=== PATIENT | female | born 1990 | race Caucasian/White ===

== ENCOUNTER 2023-06-11 06:37 | Observation (INO) | payer MEDICAID, SELFPAY ==
[2023-06-11] VITALS (106 sets, daily range): BP systolic 88–117; BP diastolic 65–91; PULSE 73–135; RESP 12–29; TEMP 36.6–37.3; O2SAT 83–104; BMI 18.8; BMI 19.4
--- NOTE | 2023-06-11 06:40 | ECG_ITS ---
[facility] Test Date: 2023-06-11 Pat Name: FUNMI ESTES Department: Room: [facility] [place] Gender: Female Vegetable Scullion: : 1990 Requested By: [id number] Order Number: [id number] Reading MD: MELONY NAJERA Measurements Intervals [place] Rate: 123 P: 76 MI: 152 QRS: 79 QRSD: 76 T: 64 QT: 332 QTc: 405 Interpretive Statements 1120 Sinus tachycardia 4068 Nonspecific Twave abnormality 9140 abnormal rhythm ECG No previous ECG available for comparison Electronically Signed On 06-17-2023 6:56:07 EDT by MELONY NAJERA
--- NOTE | 2023-06-11 06:42 | ED.SEIZURE1 ---
HPI - Seizure General Stated Complaint: SEIZURE Time Seen by Provider: 06/11/23 06:40 History of Present Illness HPI Narrative: 33-year-old female to the emergency Department chief complaint of seizure. The seizure was witnessed by her daughter. Patient was lying in bed sleeping and was witnessed to have three seizures. Each one lasted less than five minutes. Patient had tonic positioning, eyes rolled back, unresponsive, sonorous respirations during the events. Confused immediately following with slow return to baseline. Daughter called EMS and the patient refused transport during the 1st visit. She had a 2nd seizure and EMS transported the patient to the hospital on 2nd call. Patient reports that she is an alcoholic. She typically drinks several Natty Daddy's a day. Yesterday she only drank 1 four ole. Last drink 3pm on 06/10. No reason given for the decreased intake. She does not wish to stop drinking. No falls or injuries. Otherwise at baseline health. Related Data Home Medications Medication Instructions Recorded Confirmed bupropion HCl 300 mg 24 hr tablet, 300 mg PO QDAY 06/11/23 06/11/23 extended release Allergies Allergy/AdvReac Type Severity Reaction Status Date / Time No Known Drug Allergies Allergy Verified 06/11/23 06:41 Review of Systems ROS Status of ROS 10 or more systems reviewed and unremarkable except as noted in history and below Exam Narrative Exam Narrative: VITALS: I have reviewed the triage vital signs. GENERAL: Well developed, well appearing adult in no acute distress. NEURO: Alert and oriented x4. Moves all extremities. Face is symmetric and expressive. Cranial nerves II through XII grossly intact as tested. Muscular strength and sensation grossly intact upper and lower extremities bilaterally. No dysarthria. No aphasia. No ataxia. Normal gait. NIHSS 0. EYES: PERRL. No scleral icterus or conjunctival injection. No discharge. HENT: Normocephalic, atraumatic. Hearing is grossly intact. Nares grossly patent and without discharge. Mucous membranes moist. NECK: No JVD. Patient moves neck without restriction. CARDIO: Rhythm regular. Normal rate. No murmur, rub, or gallop. Pulses equal bilaterally in the upper and lower extremity. No lower extremity edema. PULM: Lungs clear to auscultation in all jennings. No wheezes, rales, or rhonchi. No conversational dyspnea. No splinting, stridor, or accessory muscle use. GI/: Abdomen is soft and non-tender. Normoactive bowel sounds. EXTREMITIES: Symmetric muscle bulk. No joint swelling. No clubbing, cyanosis, or deformity. SKIN: Warm and dry. Normal turgor. No rash or lesions appreciated. PSYCH: Mood, affect, and interaction is appropriate to the setting. MDM - Seizure MDM Narrative Medical decision making narrative: MDM Data External documents reviewed: Not applicable My EKG interpretation: As below My CT interpretation: Not applicable My X-ray interpretation: Not applicable My Ultrasound interpretation: Not applicable Decision rules/scores evaluated: Not applicable Discussed with: Not applicable Treatment and Disposition ED Course: 33-year-old female with past medical history only significant for alcoholism. The emergency department with chief complaint of seizure. Vital stable, the patient is afebrile. She has no focal neurologic deficits on examination. No evidence of traumatic injury. She has had decreased alcohol intake over the last twenty-four hours which she believes precipitated the seizure. Has history of alcohol withdrawal seizure. Basic labs are ordered. Fluids ordered. Ativan ordered. She appears to be in mild to moderate withdrawal at this time. Care signed out to Dr. Naik with work-up and disposition pending. Shared decision making: As above Code status: Not addressed during this visit Discharge Plan Discharge Clinical Impression: Alcohol abuse with withdrawal, Seizure Referrals: Landon Carmen MD [Primary Care Provider] - 1 week
[2023-06-11] MEDS: 0.9 % SODIUM CHLORIDE 1,000 ML 999 ML IV (06:54)
[2023-06-11] MEDS: LORAZEPAM 2 MG/ML 1 ML VIAL IV (06:55)
[2023-06-11 07:25] LABS: Basophils Percent Auto 0.7 % (0.2-2.0); Eosinophils Percent Auto 0.3 % (0.9-7.0); Hematocrit 33.6 % (36.0-48.0); Hemoglobin 11.2 g/dL (12.0-16.0); Immature Granulocytes Abs Auto 0.02 10^3/uL (0.00-0.03); Immature Granulocytes Pct Auto 0.7 % (0.0-0.5); Lymphocytes Absolute Auto 0.6 10^3/uL (1.2-3.8); Lymphocytes Percent Auto 20.5 % (20.5-60.0); Mean Corpuscular HGB Conc 33.3 g/dL (29.9-35.2); Mean Platelet Volume 9.1 fL (9.5-13.5); Monocytes Absolute Auto 0.6 10^3/uL (0.3-0.8); Monocytes Percent Auto 19.9 % (1.7-12.0); Neutrophils Absolute Auto 1.7 10^3/uL (1.4-6.5); Neutrophils Percent Auto 57.9 % (43.0-75.0); Platelet Count 79 10^3/uL (150-450); Red Blood Count 3.11 10^6/uL (4.20-5.40); Red Cell Distribution Width 15.7 % (11.0-15.0)
[2023-06-11 07:30] LABS: Ethanol 25 mg/dL
[2023-06-11 07:34] LABS: HCG Qualitative NEGATIVE (NEGATIVE)
[2023-06-11 07:35] LABS: Alanine Aminotransferase 60 U/L (14-59); Albumin Level 3.6 g/dL (3.4-5.0); Alkaline Phosphatase 152 U/L (46-116); Anion Gap 22.2; Aspartate Amino Transferase 134 U/L (15-37); BUN Creatinine Ratio 4.9; Bilirubin Total 0.4 mg/dL (0.2-1.0); Calcium 8.1 mg/dL (8.5-10.1); Carbon Dioxide 17.7 mmol/L (21.0-32.0); Chloride 100 mmol/L (98-107); Estimated GFR (African America >60 (>=60); Estimated GFR (Non-African Ame >60 (>=60); Globulin 3.6 g/dL; Glucose 134 mg/dL (74-106); Magnesium 1.5 mg/dL (1.8-2.4); Sodium 137 mmol/L (136-145); Total Protein 7.2 g/dL (6.4-8.2)
[2023-06-11 07:39] LABS: Potassium 2.9 mmol/L (3.5-5.1)
[2023-06-11 08:05] LABS: Magnesium 1.6 mg/dL (1.8-2.4)
[2023-06-11] MEDS: POTASSIUM CHLORIDE 10 MEQ ER TABLET 40 MEQ PO (08:44)
[2023-06-11] MEDS: MAGNESIUM SULFATE IN WATER 50 ML IV (08:44)
[2023-06-11] MEDS: ACETAMINOPHEN 500 MG TABLET 1000 MG PO ×3 (10:16→23:47)
--- NOTE | 2023-06-11 10:25 | P.HP_ITS ---
H&P: HPI History of Present Illness Chief complaint: SEIZURE/ALCOHOL ABUSE W/ WITHDRAWAL Narrative: 33 y/o female with a history of daily alcohol use presents to ER after a seizure. Reports alcohol withdrawal seizures in past with last around 2019. History of opiate abuse in past but reports hasn't used in months and prior rehab. Typically drinks three 24 oz cans of beer daily. Yesterday wanted to try a different drink and only had 1 can. Daughter found patient having a seizure. Reports eyes rolling and not responding. Very confused after and called EMS. To ER and given ativan. Labs show low potassium and low magnesium. Still confused at time of exam. Review of Systems ROS Constitutional Denies: fever, chills or night sweats Cardiovascular Denies: chest pain, palpitations or edema Respiratory Denies: shortness of breath, cough or wheezing Gastrointestinal Denies: abdominal pain, nausea, vomiting or diarrhea Genitourinary Denies: painful urination [facility] Medical History (Updated 06/11/23 @ 10:33 by Abhinav Lama MD) Surgical History (Updated 06/11/23 @ 07:32 by Calvin Herzog) Social History Smoking status: Current every day smoker Meds Home Medications and Allergies Home Medications Medication Instructions Recorded Confirmed Type bupropion HCl 300 mg 24 hr tablet, 300 mg PO QDAY 06/11/23 06/11/23 History extended release Allergies Allergy/AdvReac Type Severity Reaction Status Date / Time No Known Drug Allergies Allergy Verified 06/11/23 06:41 Exam Constitutional Vital Signs, click to edit/add: Last Vital Signs Temp 99.1 F 06/11/23 06:41 Pulse 96 H 06/11/23 10:00 Resp 18 06/11/23 10:00 BP 109/86 06/11/23 10:00 Pulse Ox 100 06/11/23 10:00 O2 Del Method Room Air 06/11/23 10:00 Documenting provider has reviewed patient's vital signs: yes Common normals: no apparent distress, oriented x3 and alert HENMT Common normals: normocephalic Eye Common normals: PERRL and EOMs intact bilaterally Respiratory Common normals: normal respiratory effort and clear to auscultation bilaterally Cardio Common normals: regular rate, regular rhythm, no gallops, no murmurs and no rub GI Common normals: Normal to inspection, nondistended, normoactive bowel sounds present and non-tender Extremity Common normals: no pedal edema Results Labs Labs: Short CBC 06/11/23 Range/Units 06:45 WBC 3.0 L (4.0-11.0) 10^3/uL Hgb 11.2 L (12.0-16.0) g/dL Hct 33.6 L (36.0-48.0) % Plt Count 79 L (150-450) 10^3/uL BMP 06/11/23 06:45 Sodium 137 Potassium 2.9 L* Chloride 100 Carbon Dioxide 17.7 L BUN 4.0 L Creatinine 0.81 Glucose 134 H Calcium 8.1 L Liver Function 06/11/23 Range/Units 06:45 Total Bilirubin 0.4 (0.2-1.0) mg/dL AST 134 H (15-37) U/L ALT 60 H (14-59) U/L Alkaline Phosphatase 152 H (46-116) U/L Albumin 3.6 (3.4-5.0) g/dL Assessment and Plan Assessment and Plan (1) Seizure: (2) Bipolar 1 disorder: (3) Opioid abuse, in remission: (4) Alcohol withdrawal seizure: Plan Presented with alcohol withdrawal seizure and given Ativan. Start CIWA protocol with librium and use IV ativan PRN. Resume home medication. Replace electrolytes. Start vitamin supplements. Monitor for withdrawal symptoms.
[2023-06-11] MEDS: POTASSIUM CHLORIDE IN 0.9%NACL 1,000 ML 100 MEQ IV ×2 (11:49→20:54)
[2023-06-11] MEDS: BUPROPION HCL 150 MG XL TABLET 24H 300 MG PO (11:49)
[2023-06-11] MEDS: ARIPIPRAZOLE 2 MG TABLET PO (11:49)
[2023-06-11] MEDS: THIAMINE MONONITRATE (VIT B1) 100 MG TABLET PO (12:14)
[2023-06-11] MEDS: MULTIVITAMIN TABLET 1 TAB PO (12:14)
[2023-06-11] MEDS: FOLIC ACID 1 MG TABLET PO (12:15)
[2023-06-11 14:08] LABS: Anion Gap 9.5; Calcium 7.5 mg/dL (8.5-10.1); Carbon Dioxide 29.1 mmol/L (21.0-32.0); Chloride 101 mmol/L (98-107); Estimated GFR (African America >60 (>=60); Estimated GFR (Non-African Ame >60 (>=60); Glucose 133 mg/dL (74-106); Magnesium 2.1 mg/dL (1.8-2.4); Potassium 3.6 mmol/L (3.5-5.1); Sodium 136 mmol/L (136-145)
[2023-06-11] MEDS: CLORDIAZEPOXIDE HCl 25 MG CAPSULE 50 MG PO ×2 (14:09→20:09)
--- NOTE | 2023-06-11 14:19 | PC.NURSE ---
1300 06/11/[address] weems and pharmacist librium orders per facility policy confirmed and entered as vo per dr weems. Andrew Deshpande RN
--- NOTE | 2023-06-11 14:22 | PC.NURSE ---
06/11/23 1420 community engagement specialist calling and leaving message for certified first assistant consultation for pt as pt assessments trigger consultation. Andrew Deshpande RN
[2023-06-12] VITALS (28 sets, daily range): BP systolic 95–108; BP diastolic 69–83; PULSE 65–135; RESP 4–28; O2SAT 68–100
[2023-06-12] MEDS: CLORDIAZEPOXIDE HCl 25 MG CAPSULE 50 MG PO ×2 (02:04→08:10)
[2023-06-12 04:35] LABS: Hematocrit 32.5 % (36.0-48.0); Hemoglobin 10.9 g/dL (12.0-16.0); Mean Corpuscular HGB Conc 33.5 g/dL (29.9-35.2); Mean Corpuscular Hemoglobin 36.1 pg (26.7-34.0); Mean Corpuscular Volume 107.6 fL (81.0-99.0); Mean Platelet Volume 10.1 fL (9.5-13.5); Platelet Count 68 10^3/uL (150-450); Red Blood Count 3.02 10^6/uL (4.20-5.40); Red Cell Distribution Width 15.2 % (11.0-15.0); White Blood Count 4.3 10^3/uL (4.0-11.0)
[2023-06-12 04:58] LABS: Anion Gap 10.9; BUN Creatinine Ratio 5.2; Calcium 7.2 mg/dL (8.5-10.1); Carbon Dioxide 24.7 mmol/L (21.0-32.0); Chloride 106 mmol/L (98-107); Estimated GFR (African America >60 (>=60); Estimated GFR (Non-African Ame >60 (>=60); Glucose 66 mg/dL (74-106); Magnesium 2.2 mg/dL (1.8-2.4); Potassium 3.6 mmol/L (3.5-5.1); Sodium 138 mmol/L (136-145)
[2023-06-12] MEDS: POTASSIUM CHLORIDE IN 0.9%NACL 1,000 ML 100 MEQ IV (07:09)
[2023-06-12] MEDS: THIAMINE MONONITRATE (VIT B1) 100 MG TABLET PO (08:09)
[2023-06-12] MEDS: BUPROPION HCL 150 MG XL TABLET 24H 300 MG PO (08:09)
[2023-06-12] MEDS: ARIPIPRAZOLE 2 MG TABLET PO (08:09)
[2023-06-12] MEDS: FOLIC ACID 1 MG TABLET PO (08:09)
[2023-06-12] MEDS: MULTIVITAMIN TABLET 1 TAB PO (08:10)
--- NOTE | 2023-06-12 11:28 | PM.DS1 ---
DS: Providers Provider Date of admission: 06/11/23 10:00 Primary care physician: Landon Carmen MD DS: Diagnosis Discharge Diagnosis (1) Alcohol withdrawal seizure: (2) Seizure: (3) Bipolar 1 disorder: (4) Opioid abuse, in remission: DS: Summary Hospital Course Hospital Course: Reason for admission: See H&P for details. 33 y/o female with a history of daily alcohol use presents to ER after a seizure. Reports alcohol withdrawal seizures in past with last around 2019. History of opiate abuse in past but reports hasn't used in months and prior rehab. Typically drinks three 24 oz cans of beer daily. Yesterday wanted to try a different drink and only had 1 can. Daughter found patient having a seizure. Reports eyes rolling and not responding. Very confused after and called EMS. To ER and given ativan. Labs show low potassium and low magnesium and replaced. Admitted for treatment. Hospital course: Started CIWA protocol using librium and ativan. Started IV fluids and oral vitamin supplements. Resumed home medication. Improved in hospital. Labs normal. Not as shaky and withdrawal symptoms controlled with librium. Discharged home in stable condition. Use librium PRN. Resume home medication as directed. F/u with PCP in 1 week. Time Spent with Patient Time attestation: Total time spent providing and/or coordinating discharge services: Exam Constitutional Vital Signs, click to edit/add: Last Vital Signs Temp 97.8 F 06/11/23 23:50 Pulse 107 H 06/12/23 10:00 Resp 28 H 06/12/23 07:30 BP 108/83 06/12/23 07:23 Pulse Ox 100 06/12/23 03:44 O2 Del Method Room Air 06/11/23 11:27 Documenting provider has reviewed patient's vital signs: yes Common normals: no apparent distress, oriented x3 and alert HENMT Common normals: normocephalic Eye Common normals: PERRL and EOMs intact bilaterally Respiratory Common normals: normal respiratory effort and clear to auscultation bilaterally Cardio Common normals: regular rate, regular rhythm, no gallops, no murmurs and no rub GI Common normals: Normal to inspection, nondistended, normoactive bowel sounds present and non-tender Extremity Common normals: no pedal edema DS: Data Data Completed and Pending Labs on day of discharge: Labs from last 24 hours 06/12/23 06/11/23 03:41 13:46 WBC 4.3 RBC 3.02 L Hgb 10.9 L Hct 32.5 L MCV 107.6 H MCH 36.1 H MCHC 33.5 RDW 15.2 H Plt Count 68 L MPV 10.1 Sodium 138 136 Potassium 3.6 3.6 Chloride 106 101 Carbon Dioxide 24.7 29.1 Anion Gap 10.9 9.5 BUN 3.0 L 3.0 L Creatinine 0.58 0.60 Est GFR ( Amer) >60 >60 Est GFR (Non-Af Amer) >60 >60 BUN/Creatinine Ratio 5.2 5.0 Glucose 66 L 133 H Calcium 7.2 L 7.5 L Magnesium 2.2 2.1 Discharge Plan Discharge Discharge Medications: New chlordiazepoxide HCl 25 mg capsule 25 mg PO Q6H PRN (Reason: alcohol withdrawal) 7 Days Qty: 28 0RF Continued bupropion HCl 300 mg tablet extended release 24 hr 300 mg PO QDAY aripiprazole 2 mg tablet 2 mg PO DAILY Discontinued quetiapine [Seroquel] 25 mg tablet 25 mg PO BEDTIME PRN (Reason: bedtime) Activity: resume usual activities as tolerated Diet: advance to your usual diet Forms: Portal Instructions Referrals: Landon Carmen MD [Primary Care Provider] - 1 week
--- NOTE | 2023-06-13 14:25 | CM.DCFOLLOWU ---
Not a working number
== END 2023-06-12 11:49 | disposition home or self-care (01) ==
LOC: ER 10:25 → ICU 10:53
PROVIDERS: Student in an Organized Health Care Education/Training Program; Admitting Provider Family Medicine; Emergency Provider Emergency Medicine; PCP Family Medicine; Visit Provider Family Medicine
DX: F10.239 Alcohol dependence with withdrawal, unspecified (principal); R56.9 Unspecified convulsions; F31.9 Bipolar disorder, unspecified; F11.11 Opioid abuse, in remission; E87.6 Hypokalemia; E83.42 Hypomagnesemia; Z79.899 Other long term (current) drug therapy
CPT/HCPCS: 36415; 80048; 80053; 80320; 83735; 84703; 85025; 85027; 93005; 96365; 96366; 96367; 96375; 96376; 99285; G0378

== ENCOUNTER 2023-08-15 11:28 | Emergency (ER) | payer MEDICAID, SELFPAY ==
[2023-08-15 11:31] VITALS: BP 120/92; PULSE 112; RESP 16; TEMP 36.6; O2SAT 98; BMI 17.2
--- NOTE | 2023-08-15 11:42 | ED.FEMALEGU1 ---
HPI - Female Genitourinary General Chief complaint: Urogenital-Female Stated complaint: LUMPS, BUMPS, CALLOUSES Time Seen by Provider: 08/15/23 11:40 Source: patient Mode of arrival: walk-in Limitations: no limitations History of Present Illness HPI Narrative: patient's here for complaining of infection in the labia area. She says that approximately six months ago she had one on her right side. Now the symptoms are on the left side. She denies any previous history of STDs. She has not seen an DEVELOPMENTAL MATHEMATICS INSTRUCTOR for approximately two years. Related Data Home Medications Medication Instructions Recorded Confirmed aripiprazole 2 mg tablet 2 mg PO DAILY 06/11/23 06/11/23 bupropion HCl 300 mg 24 hr tablet, 300 mg PO QDAY 06/11/23 06/11/23 extended release Previous Rx's Medication Instructions Recorded chlordiazepoxide HCl 25 mg capsule 25 mg PO Q6H PRN alcohol 06/12/23 withdrawal 7 days #28 caps Allergies Allergy/AdvReac Type Severity Reaction Status Date / Time No Known Drug Allergies Allergy Verified 08/15/23 11:31 [facility] Medical History (Updated 08/15/23 @ 13:03 by Piter Baez MD) Alcohol abuse with withdrawal ?F10.139 - Alcohol abuse with withdrawal, unspecified (ICD-10) Alcohol withdrawal seizure ?F10.939 - Alcohol use, unspecified with withdrawal, unspecified (ICD-10) ?R56.9 - Unspecified convulsions (ICD-10) Bipolar 1 disorder ?F31.9 - Bipolar disorder, unspecified (ICD-10) History of alcohol abuse ?F10.11 - Alcohol abuse, in remission (ICD-10) History of anxiety ?Z86.59 - Personal history of other mental and behavioral disorders (ICD-10) History of depression ?Z86.59 - Personal history of other mental and behavioral disorders (ICD-10) Opioid abuse, in remission ?F11.11 - Opioid abuse, in remission (ICD-10) Surgical History (Updated 06/11/23 @ 07:32 by Calvin Herzog) History of tonsillectomy ?Z90.89 - Acquired absence of other organs (ICD-10) Social History Smoking status: Current every day smoker Gender Identity: female Exam Narrative Exam Narrative: patient awake alert pleasant. I do smell alcohol on her breath and she confirms that. Examination was conducted with a RN. Problem focused examination shows the perineum and pelvic area to be normal. However on the proximal left thigh/buttock area there is a small abscess measuring approximately one and half centimeters. There is no drainage at this time. The perirectal area is uninvolved. Constitutional Vital Signs, click to edit/add: Last Vital Signs Temp 97.8 F 08/15/23 11:31 Pulse 112 H 08/15/23 11:31 Resp 16 08/15/23 11:31 BP 120/92 H 08/15/23 11:31 Pulse Ox 98 08/15/23 11:31 O2 Del Method Room Air 08/15/23 11:31 Course Vital Signs Vital signs: Vital Signs Temperature 97.8 F 08/15/23 11:31 Pulse Rate 112 H 08/15/23 11:31 Respiratory Rate 16 08/15/23 11:31 Blood Pressure 120/92 H 08/15/23 11:31 Pulse Oximetry 98 08/15/23 11:31 Oxygen Delivery Method Room Air 08/15/23 11:31 Temperature 97.8 F 08/15/23 11:31 Pulse Rate 112 H 08/15/23 11:31 Respiratory Rate 16 08/15/23 11:31 Blood Pressure 120/92 H 08/15/23 11:31 Pulse Oximetry 98 08/15/23 11:31 Oxygen Delivery Method Room Air 08/15/23 11:31 MDM - Female Genitourinary MDM Narrative Medical decision making narrative: after lidocaine one percent anesthesia with epinephrine area was prepped with Betadine and a #11 blade was used to make a small opening in the area of maximum fluctuance. Purulent material was reccovered. She tolerated procedure well.. We will start her on antibiotic therapy. This was not a deep abscess. Discharge Plan Discharge Chief Complaint: Urogenital-Female Clinical Impression: Abscess of left leg Patient Disposition: Home, Self-Care Time of Disposition Decision: 13:03 Prescriptions / Home Meds: No Action bupropion HCl 300 mg tablet extended release 24 hr 300 mg PO QDAY aripiprazole 2 mg tablet 2 mg PO DAILY chlordiazepoxide HCl 25 mg capsule 25 mg PO Q6H PRN (Reason: alcohol withdrawal) 7 Days Qty: 28 0RF Additional Instructions: warm compresses/start Keflex and doxycycline Stand Alone Forms: Portal Instructions Referrals: Landon Carmen MD [Primary Care Provider] - 1 week
== END 2023-08-15 13:21 | disposition home or self-care (01) ==
PROVIDERS: Emergency Provider Emergency Medicine Emergency Medical Services; PCP Family Medicine
DX: L02.416 Cutaneous abscess of left lower limb (principal); F31.9 Bipolar disorder, unspecified; F10.11 Alcohol abuse, in remission; F11.11 Opioid abuse, in remission; Z90.89 Acquired absence of other organs; F17.210 Nicotine dependence, cigarettes, uncomplicated; Z79.899 Other long term (current) drug therapy; Z86.59 Personal history of other mental and behavioral disorders
CPT/HCPCS: 10060; 99284

== ENCOUNTER 2024-03-07 09:32 | Outpatient (OUT) | payer MEDICAID, SELFPAY ==
--- NOTE | 2024-03-07 09:39 | XR_ITS ---
The [address] [address] Patient Name: FUNMI ESTES MRN: [id number] date: 1990 Sex: F Assigned Patient Location: [facility] Current Patient Location: RAD Accession/Order Number: [id number] Exam Date: 03/07/2024 09:50 Report Date: 03/07/2024 14:27 At the request of: CARL CHILD Procedure: XR wrist RT min 3V PROCEDURE: XR wrist RT min 3V COMPARISON: None. HISTORY: Acute Wrist Pain Right M25.531 FINDINGS: BONES:Focal sclerosis and slight contour deformity proximal scaphoid. Elongated appearance of the ulna styloid possibly developmental. SOFT TISSUES:Negative. No visible soft tissue swelling. EFFUSION:None visible. OTHER: Negative. XR/XR wrist RT min 3V IMPRESSION: Sclerosis and contour deformity of the proximal scaphoid, consider subacute or chronic injury Electronically authenticated by: NIESHA MORRIS Date: 03/07/2024 14:27
== END 2024-03-07 09:33 | disposition home or self-care (01) ==
LOC: RAD 09:33
PROVIDERS: PCP Family Medicine; Visit Provider Family Medicine
DX: M25.531 Pain in right wrist (principal)
CPT/HCPCS: 73110

== ENCOUNTER 2024-08-21 06:51 | Outpatient (OUT) | payer MEDICAID, SELFPAY ==
--- NOTE | 2024-08-21 | ECG_ITS ---
The [facility] Test Date: 2024-08-21 Pat Name: FUNMI ESTES Department: Room: - Gender: Female Ct Scan Tech: : 1990 Requested By: Order Number: [id number] Reading MD: MELONY NAJERA Measurements Intervals [place] Rate: 61 P: 48 UT: 142 QRS: 68 QRSD: 82 T: 59 QT: 383 QTc: 388 Interpretive Statements SINUS RHYTHM Compared to ECG 06/11/2023 06:42:04 Sinus tachycardia no longer present Electronically Signed On 08-21-2024 22:21:22 EDT by MELONY NAJERA
--- OUTSIDE RECORDS SUMMARY | 2024-08-21 06:56 | XMS_ITS | CCD ---
Author Organization [facility] Care Team Providers Care Ball Worker Name Role Phone ONI CARMICHAEL Admitting Unavailable ONI CARMICHAEL Consulting Unavailable ONI CARMICHAEL Attending Unavailable DR CARL CHILD Primary Care Unavailable CORNELIA SMILEY Admitting Unavailable CORNELIA SMILEY Attending Unavailable ARTURO, DR NIESHA Magaña Consulting Unavailable CORNELIA SMILEY Consulting Unavailable DR CARL CHILD Consulting Unavailable DR CARL CHILD Attending Unavailable MATEUSZ, DR HENRY Admitting Unavailable DR CARL CHILD Primary Care Unavailable MD Carl Child Primary Care Provider [phone] Xochilt Awan Emergency Provider [phone] PROVIDER, UNKNOWN Attending Unavailable PROVIDER, UNKNOWN Admitting Unavailable MD Carl Child Primary Care Provider [phone] DO Roby Thakkar Emergency Provider [phone] MD Gem Velasco Admit Provider MD Gem Velasco Attending Provider MD Tyrone Barron Attending Provider MD Gregory Raya Other Provider Gem Velasco Admitting Unavailable Tyrone Barron Attending Unavailable Carl Child Primary Care Unavailable Gregory Raya Consulting Unavailable Allergies Allergy Classification Reported Allergen(s) Allergy Type Date of Onset Reaction(s) Facility (1 source) Penicillin Drug Allergy [facility] Repository Medications Current Medications Medication Drug Class(es) Dates Sig (Normalized) Sig (Original) acamprosate calcium 333 mg delayed release oral tablet (3 sources) Start: 12-16-2021 take 333 mg by mouth twice daily Acamprosate Active 333 MG PO Twice daily December 16, 2021 12:00am 24 hr buPROPion hydrochloride 300 mg extended release oral tablet (3 sources) Aminoketone Start: 12-16-2021 take 300 mg by mouth once daily Bupropion Hcl Active 300 MG PO Daily December 16, 2021 12:00am cephalexin 500 mg oral capsule (3 sources) Cephalosporin Antibacterial Start: 12-16-2021 take 1000 mg by mouth twice daily Cephalexin Active 1000 MG PO Twice daily 40 December 16, 2021 12:00am escitalopram 5 mg oral tablet (3 sources) Serotonin Reuptake Inhibitor Start: 12-16-2021 take 5 mg by mouth once daily Escitalopram Oxalate Active 5 MG PO Daily December 16, 2021 12:00am ibuprofen 800 mg oral tablet (12 sources) Nonsteroidal Anti-inflammatory Drug Start: 12-16-2021 take 800 mg by mouth every six hours Ibuprofen Active 800 MG PO Q6H December 16, 2021 12:00am Start: 12-08-2019 End: 12-16-2021 take 800 mg by mouth three times daily Ibuprofen Discontinued 800 MG PO Three times daily December 08, 2019 12:00am December 16, 2021 10:44am Start: 04-21-2019 End: 12-19-2019 Ibuprofen (Motrin Ib) 200 mg Capsule Discontinued 600 MG PO Q6H April 20, 2019 11:00pm December 19, 2019 10:46pm Start: 09-12-2018 End: 04-21-2019 take 600 mg by mouth every six hours Ibuprofen Discontinued 600 MG PO Q6H 0 September 12, 2018 12:00am April 21, 2019 5:25pm 24 hr propranolol hydrochloride 120 mg extended release oral capsule (1 source) beta-Adrenergic Tommy Start: 09-16-2023 take 120 mg by mouth once daily Propranolol Active 120 MG PO Daily September 16, 2023 12:00am QUEtiapine 100 mg oral tablet (3 sources) Atypical Antipsychotic Start: 12-16-2021 take 100 mg by mouth at bedtime Quetiapine Active 100 MG PO Bedtime December 16, 2021 12:00am sulfamethoxazole 800 mg / trimethoprim 160 mg oral tablet (3 sources) Dihydrofolate Reductase Inhibitor Antibacterial, Sulfonamide Antimicrobial Start: 12-16-2021 take 1 tablet by mouth twice daily Sulfamethoxazole -Trimethoprim (Bactrim Ds) 800-160 mg tablet Active 1 TAB PO Twice daily 20 December 16, 2021 12:00am Completed/Discontinued Medications Medication Drug Class(es) Dates Sig (Normalized) Sig (Original) acetaminophen 325 mg oral tablet (6 sources) Start: 04-21-2019 End: 12-19-2019 take 2 tablets by mouth every four hours Acetaminophen (Tylenol) 325 mg Tablet Discontinued 650 MG PO Q4H April 20, 2019 11:00pm December 19, 2019 10:46pm Start: 09-12-2018 End: 04-21-2019 take 650 mg by mouth every four hours Acetaminophen Discontinued 650 MG PO Q4H September 12, 2018 12:00am April 21, 2019 5:25pm buprenorphine 2 mg sublingual tablet (3 sources) Partial Opioid Agonist Start: 09-12-2018 End: 04-21-2019 take 4 mg under the tongue once daily Buprenorphine Hcl Discontinued 4 MG SUBLINGUAL Daily 60 September 12, 2018 12:00am April 21, 2019 5:25pm buprenorphine 8 mg / naloxone 2 mg sublingual film (3 sources) Partial Opioid Agonist, Opioid Antagonist Start: 04-21-2019 End: 12-19-2019 Buprenorphine-Nalox one Discontinued FILM April 20, 2019 11:00pm December 19, 2019 10:46pm nitrofurantoin, macrocrystals 25 mg / nitrofurantoin, monohydrate 75 mg oral capsule (3 sources) Nitrofuran Antibacterial Start: 04-21-2019 End: 12-19-2019 take 1 capsule by mouth every twelve hours at mealtime Nitrofurantoin Monohyd/M-Cryst (Macrobid) 100 mg capsule Discontinued 100 MG PO Q12H 10 April 20, 2019 11:00pm December 19, 2019 10:46pm administer with a meal/food; swallow whole; do not open, crush, dissolve , or chew OLANZapine 5 mg oral tablet (6 sources) Atypical Antipsychotic Start: 09-12-2018 End: 12-19-2019 Olanzapine Discontinued TABLET April 20, 2019 11:00pm December 19, 2019 10:45pm omeprazole 20 mg delayed release oral capsule (3 sources) Proton Pump Inhibitor Start: 09-12-2018 End: 04-21-2019 take 20 mg by mouth once daily Omeprazole Discontinued 20 MG PO Daily 30 September 12, 2018 12:00am April 21, 2019 5:26pm ondansetron 4 mg oral tablet (3 sources) Serotonin-3 Receptor Antagonist Start: 04-21-2019 End: 04-21-2019 Ondansetron Hcl Discontinued TABLET April 20, 2019 11:00pm April 21, 2019 5:27pm potassium chloride 20 meq extended release oral tablet (6 sources) Start: 12-20-2019 End: 12-16-2021 take 40 mEq by mouth once daily Potassium Chloride Discontinued 40 MEQ PO Daily December 20, 2019 12:00am December 16, 2021 10:44am Start: 04-21-2019 End: 12-19-2019 take 20 mEq by mouth once daily at mealtime Potassium Chloride Discontinued 20 MEQ PO daily 7 7 April 20, 2019 11:00pm December 19, 2019 10:45pm administer with food (meal or snack) promethazine hydrochloride 25 mg oral tablet (3 sources) Phenothiazine Start: 04-21-2019 End: 12-19-2019 take 25 mg by mouth every six hours Promethazine Discontinued 25 MG PO Q6H 15 April 20, 2019 11:00pm December 19, 2019 10:45pm Problems Active Problems Problem Classification Problem Date Documented Da te Episodic/Chronic Administrative/social admission (3 sources) Other reduced mobility; Translations: [Impaired mobility and activities of daily living] 09-06-2018 Episodic Alcohol-related disorders (4 sources) Alcohol withdrawal syndrome; Translations: [Alcohol withdrawal syndrome] 09-11-2023 Chronic Allergic reactions (3 sources) Inflammatory dermatosis; Translations: [Dermatitis, unspecified] 12-08-2019 Episodic Anxiety disorders (3 sources) Anxiety; Translations: [Anxiety disorder, unspecified] Onset: 09-11-2023 09-13-2023 Chronic Epilepsy; convulsions (4 sources) Seizure; Translations: [Unspecified convulsions] 09-11-2023 Episodic Fluid and electrolyte disorders (6 sources) Dehydration; Translations: [Dehydration] 04-21-2019 Episodic Inflammatory diseases of female pelvic organs (3 sources) Abscess of Bartholin's gland; Translations: [Abscess of Bartholin's gland] 12-16-2021 Episodic Mood disorders (3 sources) Depressive disorder; Translations: [Depression] Onset: 09-11-2023 09-13-2023 Chronic Nausea and vomiting (3 sources) Vomiting; Translations: [Vomiting, unspecified] 04-21-2019 Episodic Other aftercare (3 sources) Drug therapy finding; Translations: [Encounter for therapeutic drug level monitoring] 09-06-2018 Episodic Other diseases of veins and lymphatics (3 sources) Lymphedema; Translations: [Lymphedema, not elsewhere classified] 12-20-2019 Chronic Other nervous system disorders (3 sources) Guillain-Ulysses syndrome; 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 Other non-traumatic joint disorders (3 sources) Joint pain; Translations: [Pain in unspecified joint] 12-08-2019 Episodic Residual codes; unclassified (3 sources) Patient encounter status; Translations: [Encounter for prophylactic measures, unspecified] 09-06-2018 Episodic Residual codes; unclassified (3 sources) Tobacco use and exposure - finding; Translations: [Tobacco use] 09-06-2018 Episodic Substance-related disorders (3 sources) History of drug abuse; 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, in remission] 09-06-2018 Chronic Substance-related disorders (4 sources) Poisoning by heroin, accidental (unintentional), initial encounter; Translations: [POISON HEROIN ACCIDENTAL INIT ENC] Onset: 06-16-2021 Episodic Superficial injury; contusion (3 sources) Contusion of face; Translations: [Contusion of other part of head, initial encounter] Onset: 09-11-2023 09-13-2023 Episodic Unclassified (1 source) POISON OTH SYNT NARC ACC INITIAL; Translations: [POISON OTH SYNT NARC ACC INITIAL] Onset: 06-18-2021 Unclassified (1 source) Alcohol use, unspecified with withdrawal, unspecified; Translations: [Alcohol use, unspecified with withdrawal, unspecified] Onset: 09-11-2023 Urinary tract infections (3 sources) Urinary tract infectious disease; Translations: [Urinary tract infection, site not specified] 04-21-2019 Episodic Past or Other Problems Problem Classification Problem Date Documented Da te Episodic/Chronic Other connective tissue disease (4 sources) Pain in right foot; Translations: [PAIN IN RIGHT FOOT] Onset: 07-02-2020 Episodic Other connective tissue disease (1 source) Pain in left foot; Translations: [PAIN IN LEFT FOOT] Onset: 07-10-2020 Episodic Results Test Name Value Interpretation Reference Range Facility Basic Metabolic Panelon 08-31 Anion gap [Moles/Vol] 8.1 mmol/L Normal 6.0-15.0 [facility] Comment on above: Order Comment: pleas e change to 0900 per RN Kimberly Looney Performed By: #### M G, CMP, CBC, PT #### [facility] [address] Calcium [Mass/Vol] 8.3 mg/dL Low 8.6-10.3 [facility] Comment on above: Order Comment: pleas e change to 0900 per RN Kimberly Looney Performed By: #### M G, CMP, CBC, PT #### [facility] [address] Chloride [Moles/Vol] 107 mmol/L Normal 98-107 [facility] Comment on above: Order Comment: pleas e change to 0900 per RN Kimberly Looney Performed By: #### M G, CMP, CBC, PT #### [facility] [address] CO2 [Moles/Vol] 26.7 mmol/L Normal 21.0-31.0 [facility] Comment on above: Order Comment: pleas e change to 0900 per RN Kimberly Looney Performed By: #### M G, CMP, CBC, PT #### [facility] [address] [place] [id number] [facility] Creatinine [Mass/Vol] 0.57 mg/dL Low 0.60-1.20 [facility] Comment on above: Order Comment: pleas e change to 0900 per RN Kimberly Looney Performed By: #### M G, CMP, CBC, PT #### [facility] [address] [place] [id number] [place] Creatinine Clr Calc Pharmacy 122.00 [facility] Comment on above: Order Comment: pleas e change to 0900 per RN Kimberly Looney Performed By: #### M G, CMP, CBC, PT #### [facility] [address] [place] [address] [place] GFR/1.73 sq M.predicted MDRD (S/P/Bld) [Vol rate/Area] mL/min/{1.73_m2} Normal [facility] Comment on above: Order Comment: pleas e change to 0900 per RN Kimberly Looney Performed By: #### M Zheng, CMP, CBC, PT #### [facility] [address] Glucose [Mass/Vol] 125 mg/dL High 70-100 [facility] Comment on above: Order Comment: pleas e change to 0900 per RN Kimberly Looney Result Comment: [facility] Glucose Reference Range is dependent on time and content of last meal. Glucose of more than 200 mg/dL in a nonstressed, ambulatory subject supports the diagnosis of Diabetes Mellitus. ADA recommended reference range Performed By: #### M Zheng, CMP, CBC, PT #### [facility] [address] Potassium [Moles/Vol] 3.8 mmol/L Normal 3.5-5.1 [facility] Comment on above: Order Comment: pleas e change to 0900 per RN Kimberly Looney Performed By: #### Mary Calzada, CMP, CBC, PT #### [facility] [address] [place] [address] [place] Sodium [Moles/Vol] 138 mmol/L Normal 136-145 [facility] Comment on above: Order Comment: pleas e change to 0900 per RN Kimberly Looney Performed By: #### Mary Calzada, CMP, CBC, PT #### [facility] [address] [place] [id number] [place] Urea nitrogen [Mass/Vol] 2 mg/dL Low 7-25 [facility] Comment on above: Order Comment: pleas e change to 0900 per RN Kimberly Looney Performed By: #### Mary Calzada, CMP, CBC, PT #### [facility] [address] [place] [id number] [place] Calcium [Mass/volume] in Ser um or PlasmaOrdered By: Tyrone Barron on 09-14-2023 Calcium [Mass/Vol] 8.3 mg/dL 8.6-10.3 [facility] Carbon dioxide, total [Moles /volume] in Serum or PlasmaOrdered By: Tyrone Barron on 09-14-2023 CO2 [Moles/Vol] 26.7 mmol/L 21.0-31.0 [facility] Chloride [Moles/volume] in S tessie or PlasmaOrdered By: Tyrone Barron on 09-14-2023 Chloride [Moles/Vol] 107 mmol/L 98-107 [facility] Creatinine [Mass/volume] in Serum or PlasmaOrdered By: Tyrone Barron on 09-14-2023 Creatinine [Mass/Vol] 0.57 mg/dL 0.60-1.20 [facility] Erythrocyte distribution wid th Auto (RBC) [Ratio]Ordered By: Tyrone Barron on 09-14-2023 Erythrocyte distribution width (RBC) [Ratio] 12.4 % 11.9-15.3 [facility] Ferritinon 09-14-2023 Ferritin [Mass/Vol] 204.3 ng/mL Normal 11.0-306.8 [facility] Comment on above: Order Comment: pleas e change to 0900 per RN Kimberly Looney Performed By: #### M G, CMP, CBC, PT #### [address] Ferritin [Mass/volume] in Se rum or PlasmaOrdered By: Tyrone Barron on 09-14-2023 Ferritin [Mass/Vol] 204.3 ng/mL 11.0-306.8 [facility] Folate [Mass/volume] in Seru m or PlasmaOrdered By: Tyrone Barron on 09-14-2023 Folate [Mass/Vol] 18.4 ng/mL >5.9 [facility] Comment on above: Folate reference ran ge: >5.9 ng/mlThe WHO technical consultation on folate and vitamin [id number] has determined that folate concentrations lessthan 4 ng/ml are considered deficient. Glucose [Mass/volume] in Ser um or PlasmaOrdered By: Tyrone Barron on 09-14-2023 Glucose [Mass/Vol] 125 mg/dL 70-100 [facility] Comment on above: ADA recommended refe rence rangeRandom Glucose Reference Range is dependent on time and content of last meal. Glucose of more than 200 mg/dL in a nonstressed, ambulatory subject supports the diagnosis of Diabetes Mellitus. Hematocrit Auto (Bld) [Volum e fraction]Ordered By: Tyrone Barron on 09-14-2023 Hematocrit (Bld) [Volume fraction] 36.4 % 34.0-46.4 [facility] Hemoglobin [Mass/volume] in BloodOrdered By: Tyrone Barron on 09-14-2023 Hemoglobin (Bld) [Mass/Vol] 12.4 g/dL 11.8-15.4 [facility] Hemogram CBC Without Diffon 09-14-2023 Erythrocyte distribution width (RBC) [Ratio] 12.4 % Normal 11.9-15.3 [facility] Comment on above: Order Comment: pleas e change to 0900 per RN Kimberly Looney Performed By: #### M G, CMP, CBC, PT #### [facility] [address] [place] [address] Hematocrit (Bld) [Volume fraction] 36.4 % Normal 34.0-46.4 [facility] Comment on above: Order Comment: pleas e change to 0900 per RN Kimberly Looney Performed By: #### M G, CMP, CBC, PT #### [facility] [address] Hemoglobin (Bld) [Mass/Vol] 12.4 g/dL Normal 11.8-15.4 [facility] Comment on above: Order Comment: pleas e change to 0900 per RN Kimberly Looney Performed By: #### M G, CMP, CBC, PT #### [facility] [address] [place] [address] [place] MCH (RBC) [Entitic mass] 33.9 pg Normal 24.7-34.3 [facility] Comment on above: Order Comment: pleas e change to 0900 per RN Kimberly Looney Performed By: #### M G, CMP, CBC, PT #### [facility] [address] [place] [id number] [place] MCV (RBC) [Entitic vol] 99.9 fL Normal 80-100 [facility] Comment on above: Order Comment: pleas e change to 0900 per RN Kimberly Looney Performed By: #### M G, CMP, CBC, PT #### [facility] [address] Mean Corpuscular HGB Conc 33.9 g/dL Normal 32.0-35.0 [facility] Comment on above: Order Comment: pleas e change to 0900 per RN Kimberly Looney Performed By: #### M G, CMP, CBC, PT #### [address] Platelet mean volume (Bld) [Entitic vol] 7.4 fL Normal 6.3-10.7 [facility] Comment on above: Order Comment: pleas e change to 0900 per RN Kimberly Looney Result Comment: PERF ORMED BY: [place] [address] PATHOLOGIST [employer] ZURDO DOMINGO M.D. Performed By: #### M G, CMP, CBC, PT #### [address] Platelets (Bld) [#/Vol] 141 10*3/uL Low 150-450 [facility] Comment on above: Order Comment: pleas e change to 0900 per RN Kimberly Looney Performed By: #### M G, CMP, CBC, PT #### [address] RBC (Bld) [#/Vol] 3.65 10*6/uL Normal 3.60-5.00 [facility] Comment on above: Order Comment: pleas e change to 0900 per RN Kimberly Looney Performed By: #### M G, CMP, CBC, PT #### [address] WBC (Bld) [#/Vol] 4.1 10*3/uL Normal 3.8-11.6 [facility] Comment on above: Order Comment: pleas e change to 0900 per RN Kimberly Looney Performed By: #### M G, CMP, CBC, PT #### [facility] [address] [place] [id number] [place] Iron [Mass/volume] in Serum or PlasmaOrdered By: Tyrone Barron on 09-14-2023 Iron [Mass/Vol] 75 ug/dL 50-212 [facility] Iron and TIBC Profileon 08-31 % Iron Saturation 27.5 % Normal 20-50 [facility] Comment on above: Order Comment: pleas e change to 0900 per RN Kimberly Looney Performed By: #### M G, CMP, CBC, PT #### [facility] [address] [place] [address] [facility] Iron [Mass/Vol] 75 ug/dL Normal 50-212 [facility] Comment on above: Order Comment: pleas e change to 0900 per RN Kimberly Looney Performed By: #### M G, CMP, CBC, PT #### [facility] [address] [place] [address] [facility] Total Iron Binding Capacity 273 ug/dL Normal 255-450 [facility] Comment on above: Order Comment: pleas e change to 0900 per RN Kimberly Looney Performed By: #### M G, CMP, CBC, PT #### [facility] [address] [place] [address] [place] Transferrin [Mass/Vol] 195 mg/dL Low 203-362 [facility] Comment on above: Order Comment: pleas e change to 0900 per RN Kimberly Looney Performed By: #### M G, CMP, CBC, PT #### [facility] [address] [place] [address] [place] Iron binding capacity [Mass/ volume] in Serum or PlasmaOrdered By: Tyrone Barron on 09-14-2023 Iron binding capacity [Mass/Vol] 273 ug/dL 255-450 [facility] Iron saturation [Mass Fracti on] in Serum or PlasmaOrdered By: Tyrone Barron on 09-14-2023 Iron saturation [Mass fraction] 27.5 % 20-50 [facility] Leukocytes [#/volume] correc winnie for nucleated erythrocytes in Blood by Automated counOrdered By: Tyrone Barron on 09-14-2023 WBC corrected for nucl RBC Auto (Bld) [#/Vol] 4.1 10*3/uL 3.8-11.6 [facility] MCH Auto (RBC) [Entitic mass ]Ordered By: Tyrone Barron on 09-14-2023 MCH (RBC) [Entitic mass] 33.9 pg 24.7-34.3 [facility] MCHC Auto (RBC) [Mass/Vol]Or dered By: Tyrone Barron on 09-14-2023 MCHC (RBC) [Mass/Vol] 33.9 g/dL 32.0-35.0 [facility] MCV Auto (RBC) [Entitic vol] Ordered By: Tyrone Barron on 09-14-2023 MCV (RBC) [Entitic vol] 99.9 fL 80-100 [facility] Magnesiumon 09-14-2023 Magnesium [Mass/Vol] 1.8 mg/dL Low 1.9-2.7 [facility] Comment on above: Order Comment: pleas e change to 0900 per RN Kimberly Looney Performed By: #### M G, CMP, CBC, PT #### [address] Magnesium [Mass/volume] in S tessie or PlasmaOrdered By: Tyrone Barron on 09-14-2023 Magnesium [Mass/Vol] 1.8 mg/dL 1.9-2.7 [facility] No Panel InformationOrdered By: Tyrone Barron on 09-14-2023 Estimated GFR (CKD-EPI) > 60.0 mL/Min [facility] Creatinine Clearance (Chem 122.00 [facility] Phosphate [Mass/volume] in S tessie or PlasmaOrdered By: Tyrone Barron on 09-14-2023 Phosphate [Mass/Vol] 2.9 mg/dL 2.5-4.5 [facility] Phosphoruson 09-14-2023 Phosphate [Mass/Vol] 2.9 mg/dL Normal 2.5-4.5 [facility] Comment on above: Order Comment: plejhonatan e change to 0900 per RN Kimberly Looney Performed By: #### M G, CMP, CBC, PT #### [facility] [address] Platelet mean volume Auto (B ld) [Entitic vol]Ordered By: Tyrone Barron on 09-14-2023 Platelet mean volume (Bld) [Entitic vol] 7.4 fL 6.3-10.7 [facility] Platelets Auto (Bld) [#/Vol] Ordered By: Tyrone Barron on 09-14-2023 Platelets (Bld) [#/Vol] 141 10*3/uL 150-450 [facility] Potassium [Moles/volume] in Serum or PlasmaOrdered By: Tyrone Barron on 09-14-2023 Potassium [Moles/Vol] 3.8 mmol/L 3.5-5.1 [facility] RBC Auto (Bld) [#/Vol]Ordere d By: Tyrone Barron on 09-14-2023 RBC (Bld) [#/Vol] 3.65 10*6/uL 3.60-5.00 [facility] Serum or plasma anion gap de terminationOrdered By: Tyrone Barron on 09-14-2023 Anion gap [Moles/Vol] 8.1 mmol/L 6.0-15.0 [facility] Sodium [Moles/volume] in Ser um or PlasmaOrdered By: Tyrone Barron on 09-14-2023 Sodium [Moles/Vol] 138 mmol/L 136-145 [facility] Transferrin [Mass/volume] in Serum or PlasmaOrdered By: Tyrone Barron on 09-14-2023 Transferrin [Mass/Vol] 195 mg/dL 203-362 [facility] Urea nitrogen [Mass/volume] in Serum or PlasmaOrdered By: Tyrone Barron on 09-14-2023 Urea nitrogen [Mass/Vol] 2 mg/dL 7-25 [facility] Vit. B12/Folate Profileon Cobalamin (Vitamin B12) [Mass/Vol] 1354 pg/mL High 180-914 [facility] Comment on above: Order Comment: pleas e change to 0900 per RN Kimberly Looney Performed By: #### M G, CMP, CBC, PT #### [facility] [address] Folate 18.4 ng/mL Normal >5.9 [facility] Comment on above: Order Comment: pleas e change to 0900 per RN Kimberly Looney Result Comment: Fiorella te reference range: >5.9 ng/ml The WHO technical consultation on folate and vitamin b12 deficiencies has determined that folate concentrations less than 4 ng/ml are considered deficient. PERFORMED BY: [place] [address] PATHOLOGIST [employer] ZURDO DOMINGO M.D. Performed By: #### M G, CMP, CBC, PT #### [facility] [address] Vitamin B12 ser/plasOrdered By: Tyrone Barron on 09-14-2023 Cobalamin (Vitamin B12) [Mass/Vol] 1354 pg/mL 180-914 [facility] [facility] Alanine aminotransferase [En zymatic activity/volume] in Serum or PlasmaOrdered By: Gem Velasco on 09-12-2023 ALT [Catalytic activity/Vol] 16 U/L 7-52 [facility] Albumin [Mass/volume] in Ser um or Plasma by Bromocresol green (BCG) dye binding methoOrdered By: Gem Velasco on 09-12-2023 Albumin BCG dye [Mass/Vol] 3.4 g/dL 3.5-5.7 [facility] Alkaline phosphatase [Enzyma tic activity/volume] in Serum or PlasmaOrdered By: Gem Velasco on 09-12-2023 ALP [Catalytic activity/Vol] 79 U/L 34-104 [facility] Aspartate aminotransferase [ Enzymatic activity/volume] in Serum or PlasmaOrdered By: Gem Velasco on 09-12-2023 AST [Catalytic activity/Vol] 28 U/L 13-39 [facility] Basophils Auto (Bld) [#/Vol] Ordered By: Gem Velasco on 09-12-2023 Basophils (Bld) [#/Vol] 0.0 10*3/uL 0.0-0.2 [facility] Basophils/100 WBC Auto (Bld) Ordered By: Gem Velasco on 09-12-2023 Basophils/100 WBC (Bld) 0.3 % . [facility] Bilirubin.total [Mass/volume ] in Serum or PlasmaOrdered By: Gem Velasco on 09-12-2023 Bilirubin [Mass/Vol] 0.5 mg/dL 0.3-1.0 [facility] CT head/brain wo conon 09-12 CT head/brain wo con [facility] [place] [address] CT Scan Report Signed Patient: Karyn Estes MR#: [id number] : 1990 Acct:[id number] Age/Sex: 33 / F ADM Date: 09/11/23 Loc: Room: [address] [place] [address] Type: ADM IN Attending Dr: Gem Velasco MD Copies to: DO Gem Chino MD Ordering Provider: Roby Thakkar DO Date of Service: 09/11/23 CT/CT head/brain wo con: ? hit head CT BRAIN WITHOUT CONTRAST: CLINICAL HISTORY: Possible fall. Bruising at the right side of head. COMPARISON: None TECHNIQUE: Contiguous axial unenhanced images were obtained through the brain. This CT exam was performed using one or more following dose reduction techniques: Automated exposure control, adjustment of the mA and/or kV according to patient size, or use of iterative reconstruction technique. FINDINGS: The ventricles are within normal limits for size and position. There are no areas of abnormal attenuation. There is no hemorrhage, mass effect or extra-axial collections. The calvarium is intact. The imaged paranasal sinuses and mastoid air cells are clear. CT/CT head/brain wo con IMPRESSION: NO ACUTE INTRACRANIAL TRAUMA. Impression dictated by: Oriana Doherty M.D.09/12/2023 6:47 AM Dictation Location: [place] [address] Transcribed By: [facility] 09/12/23 0647 Dictated By: Oriana Doherty MD 09/12/23 0645 Signed By: 09/12/23 0647 Normal [facility] Complete Blood Count Auto Di ffon 09-12-2023 Basophils (Bld) [#/Vol] 0.0 10*3/uL Normal 0.0-0.2 [facility] Comment on above: Result Comment: PERF ORMED BY: [place] [address] PATHOLOGIST [employer] ZURDO DOMINGO M.D. Performed By: #### M G, CMP, CBC, PT #### [facility] [address] [place] [address] [place] Basophils/100 WBC (Bld) 0.3 % Normal . [facility] Comment on above: Performed By: #### M G, CMP, CBC, PT #### [facility] [address] [place] [address] [place] Eosinophils (Bld) [#/Vol] 0.1 10*3/uL Normal 0.0-0.45 [facility] Comment on above: Performed By: #### M G, CMP, CBC, PT #### [facility] [address] [place] [address] [place] Eosinophils/100 WBC (Bld) 2.4 % Normal . [facility] Comment on above: Performed By: #### M G, CMP, CBC, PT #### [facility] [address] [place] [address] [place] Erythrocyte distribution width (RBC) [Ratio] 12.4 % Normal 11.9-15.3 [facility] Comment on above: Performed By: #### M G, CMP, CBC, PT #### [facility] [address] [place] [address] [place] Hematocrit (Bld) [Volume fraction] 33.3 % Low 34.0-46.4 [facility] Comment on above: Performed By: #### M G, CMP, CBC, PT #### [facility] [address] [place] [address] [place] Hemoglobin (Bld) [Mass/Vol] 11.3 g/dL Low 11.8-15.4 [facility] Comment on above: Performed By: #### M G, CMP, CBC, PT #### [address] Lymphocytes (Bld) [#/Vol] 1.2 10*3/uL Normal 1.00-4.8 [facility] Comment on above: Performed By: #### M G, CMP, CBC, PT #### [address] Lymphocytes/100 WBC (Bld) 26.5 % Normal . [facility] Comment on above: Performed By: #### M G, CMP, CBC, PT #### [address] MCH (RBC) [Entitic mass] 34.1 pg Normal 24.7-34.3 [facility] Comment on above: Performed By: #### M G, CMP, CBC, PT #### [address] MCV (RBC) [Entitic vol] 100.2 fL High 80-100 [facility] Comment on above: Performed By: #### M G, CMP, CBC, PT #### [address] Mean Corpuscular HGB Conc 34.0 g/dL Normal 32.0-35.0 [facility] Comment on above: Performed By: #### M G, CMP, CBC, PT #### [address] Monocytes (Bld) [#/Vol] 0.4 10*3/uL Normal 0.0-0.8 [facility] Comment on above: Performed By: #### M G, CMP, CBC, PT #### [address] Monocytes/100 WBC (Bld) 7.8 % Normal . [facility] Comment on above: Performed By: #### M G, CMP, CBC, PT #### [address] Neutrophils (Bld) [#/Vol] 2.9 10*3/uL Normal 1.8-7.7 [facility] Comment on above: Performed By: #### M G, CMP, CBC, PT #### [address] Neutrophils/100 WBC (Bld) 63.0 % Normal . [facility] Comment on above: Performed By: #### M G, CMP, CBC, PT #### [facility] [address] [place] [address] NRBC% 0.1 /100{WBC} Normal 0-0.5 [facility] Comment on above: Performed By: #### M G, CMP, CBC, PT #### [facility] [address] [place] [address] Platelet mean volume (Bld) [Entitic vol] 8.0 fL Normal 6.3-10.7 [facility] Comment on above: Performed By: #### M G, CMP, CBC, PT #### [address] Platelets (Bld) [#/Vol] 138 10*3/uL Low 150-450 [facility] Comment on above: Performed By: #### M G, CMP, CBC, PT #### [address] RBC (Bld) [#/Vol] 3.33 10*6/uL Low 3.60-5.00 [facility] Comment on above: Performed By: #### M G, CMP, CBC, PT #### [address] WBC (Bld) [#/Vol] 4.6 10*3/uL Normal 3.8-11.6 [facility] Comment on above: Performed By: #### M G, CMP, CBC, PT #### [address] Comprehensive Metabolic Pane katja 09-12-2023 Albumin [Mass/Vol] 3.4 g/dL Low 3.5-5.7 [facility] Comment on above: Performed By: #### M G, CMP, CBC, PT #### [facility] [address] [place] [address] [place] Albumin/Globulin [Mass ratio] 1.3 {ratio} Normal [facility] Comment on above: Performed By: #### M G, CMP, CBC, PT #### [facility] [address] [place] [id number] [place] ALP [Catalytic activity/Vol] 79 U/L Normal 34-104 [facility] Comment on above: Performed By: #### M G, CMP, CBC, PT #### [facility] [address] [place] [id number] [place] ALT [Catalytic activity/Vol] 16 U/L Normal 7-52 [facility] Comment on above: Performed By: #### M G, CMP, CBC, PT #### [facility] [address] Anion gap [Moles/Vol] 7.6 mmol/L Normal 6.0-15.0 [facility] Comment on above: Performed By: #### M G, CMP, CBC, PT #### [facility] [address] [place] [address] [place] AST [Catalytic activity/Vol] 28 U/L Normal 13-39 [facility] Comment on above: Performed By: #### M G, CMP, CBC, PT #### [facility] [address] [place] [id number] [place] Bilirubin [Mass/Vol] 0.5 mg/dL Normal 0.3-1.0 [facility] Comment on above: Performed By: #### M G, CMP, CBC, PT #### [facility] [address] [place] [phone] [place] Calcium [Mass/Vol] 8.0 mg/dL Low 8.6-10.3 [facility] Comment on above: Performed By: #### M G, CMP, CBC, PT #### [facility] [address] [place] [phone] [place] Chloride [Moles/Vol] 109 mmol/L High 98-107 [facility] Comment on above: Performed By: #### M G, CMP, CBC, PT #### [facility] [address] CO2 [Moles/Vol] 24.1 mmol/L Normal 21.0-31.0 [facility] Comment on above: Performed By: #### M G, CMP, CBC, PT #### [facility] [address] Creatinine [Mass/Vol] 0.64 mg/dL Normal 0.60-1.20 [facility] Comment on above: Performed By: #### M G, CMP, CBC, PT #### [facility] [address] Creatinine Clr Calc Pharmacy 105.36 [facility] Comment on above: Performed By: #### M G, CMP, CBC, PT #### [facility] [address] GFR/1.73 sq M.predicted MDRD (S/P/Bld) [Vol rate/Area] mL/min/{1.73_m2} [facility] Comment on above: Performed By: #### M G, CMP, CBC, PT #### [facility] [address] Globulin (S) [Mass/Vol] 2.6 g/dL [facility] Comment on above: Performed By: #### M G, CMP, CBC, PT #### [facility] [address] Glucose [Mass/Vol] 95 mg/dL Normal 70-100 [facility] Comment on above: Result Comment: [place] Glucose Reference Range is dependent on time and content of last meal. Glucose of more than 200 mg/dL in a nonstressed, ambulatory subject supports the diagnosis of Diabetes Mellitus. ADA recommended reference range Performed By: #### M G, CMP, CBC, PT #### [facility] [address] Potassium [Moles/Vol] 3.7 mmol/L Normal 3.5-5.1 [facility] Comment on above: Performed By: #### M G, CMP, CBC, PT #### [facility] [address] [place] [address] [place] Protein [Mass/Vol] 6.0 g/dL Low 6.4-8.9 [facility] Comment on above: Performed By: #### M G, CMP, CBC, PT #### [facility] [address] [place] [address] [place] Sodium [Moles/Vol] 137 mmol/L Normal 136-145 [facility] Comment on above: Performed By: #### M G, CMP, CBC, PT #### [facility] [address] Urea nitrogen [Mass/Vol] 5 mg/dL Low 7-25 [facility] Comment on above: Performed By: #### M G, CMP, CBC, PT #### [facility] [address] Eosinophils Auto (Bld) [#/Vo l]Ordered By: Gem Velasco on 09-12-2023 Eosinophils (Bld) [#/Vol] 0.1 10*3/uL 0.0-0.45 [facility] Eosinophils/100 WBC Auto (Bl d)Ordered By: Gem Velasco on 09-12-2023 Eosinophils/100 WBC (Bld) 2.4 % . [facility] Globulin Calc (S) [Mass/Vol] Ordered By: Gem Velasco on 09-12-2023 Globulin (S) [Mass/Vol] 2.6 g/dL [facility] INR in Platelet poor plasma by Coagulation assayOrdered By: Gem Velasco on 09-12-2023 INR Coag (PPP) [Relative time] 0.9 {INR} [facility] Comment on above: INR Therapeutic Rang e A) Pre- and Peroperative OAT started two weeks before surgery. NOT HIP SURGERY: 1.5 - 2.5 HIP SURGERY: 2 - 3B) Primary and secondary prevention of venous THROMBOSIS: 2 - 3C) Active venous thrombosis, pulmonary embolismand prevention of recurrent venous thrombosis: 2 - 3D) Prevention of arterial thromboembolismincluding patients with mechanical heart valves: 3 - 4.5 Lymphocytes Auto (Bld) [#/Vo l]Ordered By: Gem Velasco on 09-12-2023 Lymphocytes (Bld) [#/Vol] 1.2 10*3/uL 1.00-4.8 [facility] Lymphocytes/100 WBC Auto (Bl d)Ordered By: Gem Velasco on 09-12-2023 Lymphocytes/100 WBC (Bld) 26.5 % . [facility] Magnesiumon 09-12-2023 Magnesium [Mass/Vol] 2.2 mg/dL Normal 1.9-2.7 [facility] Comment on above: Result Comment: PERF ORMED BY: [place] [address] [place] [address] PATHOLOGIST [employer] ZURDO DOMINGO M.D. Performed By: #### M G, CMP, CBC, PT #### [facility] [address] Monocytes Auto (Bld) [#/Vol] Ordered By: Gem Velasco on 09-12-2023 Monocytes (Bld) [#/Vol] 0.4 10*3/uL 0.0-0.8 [facility] Monocytes/100 WBC Auto (Bld) Ordered By: Gem Velasco on 09-12-2023 Monocytes/100 WBC (Bld) 7.8 % . [facility] Neutrophils Auto (Bld) [#/Vo l]Ordered By: Gem Velasco on 09-12-2023 Neutrophils (Bld) [#/Vol] 2.9 10*3/uL 1.8-7.7 [facility] Neutrophils/100 WBC Auto (Bl d)Ordered By: Gem Velasco on 09-12-2023 Neutrophils/100 WBC (Bld) 63.0 % . [facility] Nucleated erythrocytes [Pres ence] in Blood by Automated countOrdered By: Gem Velasco on 09-12-2023 Nucleated RBC Auto Ql (Bld) 0.1 /100{WBC} 0-0.5 [facility] Protein [Mass/volume] in Ser um or PlasmaOrdered By: Gem Velasco on 09-12-2023 Protein [Mass/Vol] 6.0 g/dL 6.4-8.9 [facility] Prothrombin Time INRon 09-12 INR Coag (PPP) [Relative time] 0.9 {INR} Normal [facility] Comment on above: Result Comment: INR Therapeutic Range A) Pre- and Peroperative OAT started two weeks before surgery. NOT HIP SURGERY: 1.5 - 2.5 HIP SURGERY: 2 - 3 B) Primary and secondary prevention of venous THROMBOSIS: 2 - 3 C) Active venous thrombosis, pulmonary embolism and prevention of recurrent venous thrombosis: 2 - 3 D) Prevention of arterial thromboembolism including patients with mechanical heart valves: 3 - 4.5 PERFORMED BY: [place] [address] PATHOLOGIST [employer] ZURDO DOMINGO M.D. Performed By: #### M G, CMP, CBC, PT #### [facility] [address] [place] [id number] [facility] PT Coag (PPP) [Time] 11.3 s Normal 9.0-12.9 [facility] Comment on above: Result Comment: A he matocrit value greater than 55% may lead to inaccurate results in coagulation testing. Patients having hematocrit values >55% require a special collection tube for coagulation studies. Please contact the laboratory at [phone] for redraw instructions. Performed By: #### M G, CMP, CBC, PT #### [facility] [address] [place], [place] [id number] [facility] Prothrombin time (PT)Ordered By: Gem Velasco on 09-12-2023 PT Coag (PPP) [Time] 11.3 s 9.0-12.9 [facility] Comment on above: A hematocrit value g reater than 55% may lead to inaccurate results in coagulation testing. Patients having hematocrit values >55% require a special collection tube for coagulation studies. Please contact the laboratory at [phone] for redraw instructions. Serum or plasma albumin/glob ulin mass ratioOrdered By: Gem Velasco on 09-12-2023 Albumin/Globulin [Mass ratio] 1.3 {ratio} [facility] WBC Auto (Bld) [#/Vol]Ordere d By: Gem Velasco on 09-12-2023 WBC (Bld) [#/Vol] 4.6 10*3/uL 3.8-11.6 [facility] Amphetamine Screen Ql (U)Ord ered By: Roby Thakkar on 09-11-2023 Amphetamines Ql (U) Negative Negative [facility] Automated epithelial cells c ount in urine sediment (number/area)Ordered By: Roby Thakkar on 09-11-2023 Epithelial cells Auto (Urine sed) [#/Area] 10-19 [HPF] 0-2 [facility] Automated erythrocytes count in urine sediment (number/area)Ordered By: Roby Thakkar on 09-11-2023 RBC Auto (Urine sed) [#/Area] 1-2 [HPF] 0-4 [facility] Automated leukocytes count i n urine sediment (number/area)Ordered By: Roby Thakkar on 09-11-2023 WBC Auto (Urine sed) [#/Area] 10-19 [HPF] 0-4 [facility] Automated urine hyaline cast s count (number/volume)Ordered By: Roby Thakkar on 09-11-2023 Hyaline casts Auto (U) [#/Vol] 3-4 [LPF] 0-1 [facility] Barbiturates [Presence] in U rine by Screen methodOrdered By: Roby Thakkar on 09-11-2023 Barbiturates Screen Ql (U) Negative Negative [facility] Basic Metabolic Panelon 08-31 Anion gap [Moles/Vol] 13.2 mmol/L Normal 6.0-15.0 [facility] Comment on above: Performed By: #### M G, BMP, PRL, CBC #### [facility] [address] [place] [address] [place] Calcium [Mass/Vol] 9.1 mg/dL Normal 8.6-10.3 [facility] Comment on above: Performed By: #### M G, BMP, PRL, CBC #### [facility] [address] [place] [address] [place] Chloride [Moles/Vol] 103 mmol/L Normal 98-107 [facility] Comment on above: Performed By: #### M G, BMP, PRL, CBC #### [facility] [address] CO2 [Moles/Vol] 22.9 mmol/L Normal 21.0-31.0 [facility] Comment on above: Performed By: #### M G, BMP, PRL, CBC #### [facility] [address] Creatinine [Mass/Vol] 0.68 mg/dL Normal 0.60-1.20 [facility] Comment on above: Performed By: #### M G, BMP, PRL, CBC #### [facility] [address] [place] [address] [place] Creatinine Clr Calc Pharmacy 96.07 [facility] Comment on above: Performed By: #### M G, BMP, PRL, CBC #### [facility] [address] [place] [address] [place] GFR/1.73 sq M.predicted MDRD (S/P/Bld) [Vol rate/Area] mL/min/{1.73_m2} [facility] Comment on above: Performed By: #### M G, BMP, PRL, CBC #### [facility] [address] Glucose [Mass/Vol] 91 mg/dL Normal 70-100 [facility] Comment on above: Result Comment: [facility] Glucose Reference Range is dependent on time and content of last meal. Glucose of more than 200 mg/dL in a nonstressed, ambulatory subject supports the diagnosis of Diabetes Mellitus. ADA recommended reference range Performed By: #### M G, BMP, PRL, CBC #### [facility] [address] [place] [address] [place] Potassium [Moles/Vol] 4.1 mmol/L Normal 3.5-5.1 [facility] Comment on above: Result Comment: Hemo lysis is present at a level that could interfere with the result. Performed By: #### M G, BMP, PRL, CBC #### [facility] [address] [place] [address] [place] Sodium [Moles/Vol] 135 mmol/L Low 136-145 [facility] Comment on above: Performed By: #### M G, BMP, PRL, CBC #### [facility] [address] Urea nitrogen [Mass/Vol] 6 mg/dL Low 7-25 [facility] Comment on above: Performed By: #### M G, BMP, PRL, CBC #### [facility] [address] Basophils Auto (Bld) [#/Vol] Ordered By: Roby Thakkar on 09-11-2023 Basophils (Bld) [#/Vol] 0.0 10*3/uL 0.0-0.2 [facility] Basophils/100 WBC Auto (Bld) Ordered By: Roby Thakkar on 09-11-2023 Basophils/100 WBC (Bld) 0.4 % . [facility] Benzodiazepines Screen Ql (U )Ordered By: Roby Thakkar on 09-11-2023 Benzodiazepines Ql (U) Negative Negative [facility] Benzoylecgonine [Presence] i n Urine by Screen methodOrdered By: Roby Thakkar on 09-11-2023 Benzoylecgonine Screen Ql (U) Negative Negative [facility] Bilirubin Test strip Ql (U)O rdered By: Roby Thakkar on 09-11-2023 Bilirubin Ql (U) Negative Negative [facility] Calcium [Mass/volume] in Ser um or PlasmaOrdered By: Roby Thakkar on 09-11-2023 Calcium [Mass/Vol] 9.1 mg/dL 8.6-10.3 [facility] Cannabinoids [Presence] in U rine by Screen methodOrdered By: Roby Thakkar on 09-11-2023 Cannabinoids Screen Ql (U) Negative Negative [facility] Comment on above: These are unconfirme d results and should not be used for legal purposes. Drug Cut-Off Concentration: AMPH 1000 ng/mL DARNELL 200 ng/mL LESLIE 200 ng/mL COCM 300 ng/mL OP 300 ng/mL PCP 25 ng/mL THC 20 ng/mL Carbon dioxide, total [Moles /volume] in Serum or PlasmaOrdered By: Roby Thakkar on 09-11-2023 CO2 [Moles/Vol] 22.9 mmol/L 21.0-31.0 [facility] Chloride [Moles/volume] in S tessie or PlasmaOrdered By: Roby Thakkar on 09-11-2023 Chloride [Moles/Vol] 103 mmol/L 98-107 [facility] Color Auto (U)Ordered By: Arun Thakkar on 09-11-2023 Color (U) Yellow Yellow [facility] Complete Blood Count Auto Di ffon 09-11-2023 Basophils (Bld) [#/Vol] 0.0 10*3/uL Normal 0.0-0.2 [facility] Comment on above: Result Comment: PERF ORMED BY: [place] [address] PATHOLOGIST [employer] ZURDO DOMINGO M.D. Performed By: #### M G, BMP, PRL, CBC #### [address] Basophils/100 WBC (Bld) 0.4 % Normal . [facility] Comment on above: Performed By: #### M G, BMP, PRL, CBC #### [facility] [address] [place] [address] Eosinophils (Bld) [#/Vol] 0.0 10*3/uL Normal 0.0-0.45 [facility] Comment on above: Performed By: #### M G, BMP, PRL, CBC #### [address] Eosinophils/100 WBC (Bld) 0.8 % Normal . [facility] Comment on above: Performed By: #### M G, BMP, PRL, CBC #### [facility] [address] [place] [address] Erythrocyte distribution width (RBC) [Ratio] 12.2 % Normal 11.9-15.3 [facility] Comment on above: Performed By: #### M G, BMP, PRL, CBC #### [facility] [address] [place] [address] Hematocrit (Bld) [Volume fraction] 35.9 % Normal 34.0-46.4 [facility] Comment on above: Performed By: #### M Zheng BMP, PRL, CBC #### [address] Hemoglobin (Bld) [Mass/Vol] 12.4 g/dL Normal 11.8-15.4 [facility] Comment on above: Performed By: #### Mary Calzada, BMP, PRL, CBC #### [address] Lymphocytes (Bld) [#/Vol] 1.0 10*3/uL Normal 1.00-4.8 [facility] Comment on above: Performed By: #### Mary Calzada, BMP, PRL, CBC #### [address] Lymphocytes/100 WBC (Bld) 22.7 % Normal . [facility] Comment on above: Performed By: #### Mary Calzada, BMP, PRL, CBC #### [address] MCH (RBC) [Entitic mass] 34.1 pg Normal 24.7-34.3 [facility] Comment on above: Performed By: #### Mary Calzada, BMP, PRL, CBC #### [address] MCV (RBC) [Entitic vol] 99.1 fL Normal 80-100 [facility] Comment on above: Performed By: #### M Zheng, BMP, PRL, CBC #### [address] Mean Corpuscular HGB Conc 34.4 g/dL Normal 32.0-35.0 [facility] Comment on above: Performed By: #### Mary Calzada, BMP, PRL, CBC #### [address] Monocytes (Bld) [#/Vol] 0.3 10*3/uL Normal 0.0-0.8 [facility] Comment on above: Performed By: #### M Zheng, BMP, PRL, CBC #### [facility] [address] [place] [address] Monocytes/100 WBC (Bld) 21.57 % High 0.00-20.00 [facility] Comment on above: Result Comment: For adults in ED, MDW > 20.0 may be associated with a higher risk of sepsis during the first 12 hrs of hospital admission Performed By: #### M G, BMP, PRL, CBC #### [facility] [address] [place] [address] Monocytes/100 WBC (Bld) 7.3 % Normal . [facility] Comment on above: Performed By: #### M G, BMP, PRL, CBC #### [address] Neutrophils (Bld) [#/Vol] 3.1 10*3/uL Normal 1.8-7.7 [facility] Comment on above: Performed By: #### Mary G, BMP, PRL, CBC #### [address] Neutrophils/100 WBC (Bld) 68.8 % Normal . [facility] Comment on above: Performed By: #### Mary G, BMP, PRL, CBC #### [address] NRBC% 0.1 /100{WBC} Normal 0-0.5 [facility] Comment on above: Performed By: #### M G, BMP, PRL, CBC #### [facility] [address] [place] [address] Platelet mean volume (Bld) [Entitic vol] 8.2 fL Normal 6.3-10.7 [facility] Comment on above: Performed By: #### M G, BMP, PRL, CBC #### [facility] [address] [place] [address] [place] Platelets (Bld) [#/Vol] 149 10*3/uL Low 150-450 [facility] Comment on above: Performed By: #### M G, BMP, PRL, CBC #### [address] [place] [address] [place] RBC (Bld) [#/Vol] 3.62 10*6/uL Normal 3.60-5.00 [facility] Comment on above: Performed By: #### M G, BMP, PRL, CBC #### [facility] [address] [id number] [place] WBC (Bld) [#/Vol] 4.4 10*3/uL Normal 3.8-11.6 [facility] Comment on above: Performed By: #### M G, BMP, PRL, CBC #### [facility] [address] Creatinine [Mass/volume] in Serum or PlasmaOrdered By: Roby Thakkar on 09-11-2023 Creatinine [Mass/Vol] 0.68 mg/dL 0.60-1.20 [facility] Dipstick and Microscopicon 1 11-11-2022 Appearance (U) Cloudy Critically abnormal Clear [facility] Comment on above: Order Comment: Name Collection Type:: Clean-Voided Midstream Performed By: #### M G, CMP, CBC, PT #### [facility] [address] [place] [address] [place] Bacteria,Urine 3+ High None Seen [facility] Comment on above: Order Comment: Name Collection Type:: Clean-Voided Midstream Performed By: #### M G, CMP, CBC, PT #### [facility] [address] [place] [address] [place] Bilirubin,Urine Negative Normal Negative [facility] Comment on above: Order Comment: Name Collection Type:: Clean-Voided Midstream Performed By: #### M G, CMP, CBC, PT #### [facility] [address] [id number] [place] Color (U) Yellow Normal Yellow [facility] Comment on above: Order Comment: Name Collection Type:: Clean-Voided Midstream Performed By: #### M G, CMP, CBC, PT #### [facility] [address] [place] [address] [place] Glucose Ql (U) Normal Normal Normal [facility] Comment on above: Order Comment: Name Collection Type:: Clean-Voided Midstream Performed By: #### M G, CMP, CBC, PT #### [facility] [address] [place] [address] [place] Hyaline Casts,Urine 3-4 High 0-1 [facility] Comment on above: Order Comment: Name Collection Type:: Clean-Voided Midstream Performed By: #### M G, CMP, CBC, PT #### [facility] [address] [place] [address] [place] Ketones Ql (U) Negative Normal Negative [facility] Comment on above: Order Comment: Name Collection Type:: Clean-Voided Midstream Performed By: #### M G, CMP, CBC, PT #### [facility] [address] [place] [address] Leukocyte esterase Test strip Ql (U) 1+ High Negative [facility] Comment on above: Order Comment: Name Collection Type:: Clean-Voided Midstream Performed By: #### M G, CMP, CBC, PT #### [facility] [address] [place] [address] [place] Nitrite,Urine Negative Normal Negative [facility] Comment on above: Order Comment: Name Collection Type:: Clean-Voided Midstream Performed By: #### M G, CMP, CBC, PT #### [facility] [address] [place] [address] [place] Occult Blood,Urine Trace High Negative [facility] Comment on above: Order Comment: Name Collection Type:: Clean-Voided Midstream Performed By: #### M G, CMP, CBC, PT #### [facility] [address] [place] [address] [place] pH (U) 6.0 [pH] Normal 5.0-9.0 [facility] Comment on above: Order Comment: Name Collection Type:: Clean-Voided Midstream Performed By: #### M G, CMP, CBC, PT #### [facility] [address] [place] [address] [place] Protein,Urine Negative Normal Negative [facility] Comment on above: Order Comment: Name Collection Type:: Clean-Voided Midstream Performed By: #### M G, CMP, CBC, PT #### [facility] [address] [place] [address] [place] RBC,Urine 1-2 Normal 0-4 [facility] Comment on above: Order Comment: Name Collection Type:: Clean-Voided Midstream Performed By: #### M G, CMP, CBC, PT #### [facility] [address] [place] [address] [place] Specificy [place],Urine 1.005 Normal 1.001-1.03 0 [facility] Comment on above: Order Comment: Name Collection Type:: Clean-Voided Midstream Performed By: #### M G, CMP, CBC, PT #### [facility] [address] [place] [address] [place] Squamous Epithelial Cell,Urine 10-19 High 0-2 [facility] Comment on above: Order Comment: Name Collection Type:: Clean-Voided Midstream Performed By: #### M G, CMP, CBC, PT #### [facility] [address] [place] [address] [place] Urobilinogen,Urine Normal Normal Normal [facility] Comment on above: Order Comment: Name Collection Type:: Clean-Voided Midstream Performed By: #### M G, CMP, CBC, PT #### [facility] [address] [place], [place] [id number] [place] WBC,Urine 10-19 High 0-4 [facility] Comment on above: Order Comment: Name Collection Type:: Clean-Voided Midstream Performed By: #### M G, CMP, CBC, PT #### [facility] [address] [place] [address] [place] Drug Screen,Urineon 09-11-20 23 Amphetamine Screen,Urine Negative Normal Negative [facility] Comment on above: Performed By: #### M G, CMP, CBC, PT #### [facility] [address] [place] [address] Barbiturate Screen,Urine Negative Normal Negative [facility] Comment on above: Performed By: #### M G, CMP, CBC, PT #### [place] [address] [place] Benzodiazepines Screen,Urine Negative Normal Negative [facility] Comment on above: Performed By: #### M G, CMP, CBC, PT #### [place] [address] [place] Cannabinoid Screen,Urine Negative Normal Negative [facility] Comment on above: Result Comment: Thes e are unconfirmed results and should not be used for legal purposes. Drug Cut-Off Concentration: AMPH 1000 ng/mL DARNELL 200 ng/mL LESLIE 200 ng/mL COCM 300 ng/mL OP 300 ng/mL PCP 25 ng/mL THC 20 ng/mL PERFORMED BY: [place] [address] PATHOLOGIST [employer] ZURDO DOMINGO M.D. Performed By: #### M G, CMP, CBC, PT #### [address] Cocaine Screen,Urine Negative Normal Negative [facility] Comment on above: Performed By: #### M G, CMP, CBC, PT #### [place] [address] [place] Opiate Screen,Urine Negative Normal Negative [facility] Comment on above: Performed By: #### M G, CMP, CBC, PT #### [address] Phencyclidine Screen,Urine Negative Normal Negative [facility] Comment on above: Performed By: #### M G, CMP, CBC, PT #### [facility] [address] [place] [address] ECG 12 lead ECGon 09-11-2023 ECG 12 lead ECG [facility] [address] [place] [address] Electrocardiograph Report Signed Patient: Karyn Estes MR#: [id number] : 1990 Acct:[id number] Age/Sex: 33 / F ADM Date: 09/11/23 Loc: ER Room: Type: [facility] ER Attending Dr: Ordering Provider: Roby Thakkar DO Date of Service: 09/11/2310/22/1852 ECG/ECG 12 lead ECG: Seizure Copies to: Test Reason : Blood Pressure : / mmHG Vent. Rate : 084 BPM Atrial Rate : 084 BPM P-R Int : 142 ms QRS Dur : 068 ms QT Int : 368 ms P-R-T Axes : 040 050 033 degrees QTc Int : 434 ms Normal sinus rhythm Confirmed by Roby THAKKAR DO ([id number]) on 09/11/2023 8:45:31 PM Referred By: Electronically Signed By:Roby THAKKAR DO Transcribed By: MUS Signed By Roby Thakkar DO 1 11/11/222044 Normal [facility] Eosinophils Auto (Bld) [#/Vo l]Ordered By: Roby Thakkar on 09-11-2023 Eosinophils (Bld) [#/Vol] 0.0 10*3/uL 0.0-0.45 [facility] Eosinophils/100 WBC Auto (Bl d)Ordered By: Roby Thakkar on 09-11-2023 Eosinophils/100 WBC (Bld) 0.8 % . [facility] Erythrocyte distribution wid th Auto (RBC) [Ratio]Ordered By: Roby Thakkar on 09-11-2023 Erythrocyte distribution width (RBC) [Ratio] 12.2 % 11.9-15.3 [facility] Ethanol [Mass/volume] in Ser um or PlasmaOrdered By: Roby Thakkar on 09-11-2023 Ethanol [Mass/Vol] mg/dL [facility] Ethanol [Mass/Vol] TNP [facility] Comment on above: Test not performed Ethyl Alcohol Profileon 08-31 Ethanol [Mass/Vol] mg/dL Normal [facility] Comment on above: Performed By: #### M G, CMP, CBC, PT #### [facility] [address] [place] [address] Percent Ethanol Not performed Normal [facility] Comment on above: Result Comment: PERF ORMED BY: [place] [address] PATHOLOGIST [employer] ZURDO DOMINGO M.D. Performed By: #### M G, CMP, CBC, PT #### [facility] [address] [id number] [facility] Glucose [Mass/volume] in Ser um or PlasmaOrdered By: Roby Thakkar on 09-11-2023 Glucose [Mass/Vol] 91 mg/dL 70-100 [facility] Comment on above: ADA recommended refe rence rangeRandom Glucose Reference Range is dependent on time and content of last meal. Glucose of more than 200 mg/dL in a nonstressed, ambulatory subject supports the diagnosis of Diabetes Mellitus. HCG ( test) IA.rapi d Ql (U)Ordered By: Roby Thakkar on 09-11-2023 HCG ( test) Ql (U) Negative [facility] HCG,Urineon 09-11-2023 Beta HCG ( test) Ql (U) Negative Normal [facility] Comment on above: Order Comment: Name Collection Type:: Clean-Voided Midstream Result Comment: PERF ORMED BY: [place] [address] PATHOLOGIST [employer] ZURDO DOMINGO M.D. Performed By: #### M G, CMP, CBC, PT #### [facility] [address] [id number] [facility] Hematocrit Auto (Bld) [Volum e fraction]Ordered By: Roby Thakkar on 09-11-2023 Hematocrit (Bld) [Volume fraction] 35.9 % 34.0-46.4 [facility] Hemoglobin [Mass/volume] in BloodOrdered By: Roby Thakkar on 09-11-2023 Hemoglobin (Bld) [Mass/Vol] 12.4 g/dL 11.8-15.4 [facility] Ketones Auto test strip (U) [Mass/Vol]Ordered By: Roby Thakkar on 09-11-2023 Ketones (U) [Mass/Vol] Negative Negative [facility] Leukocytes [#/volume] correc winnie for nucleated erythrocytes in Blood by Automated counOrdered By: Roby Thakkar on 09-11-2023 WBC corrected for nucl RBC Auto (Bld) [#/Vol] 4.4 10*3/uL 3.8-11.6 [facility] Lymphocytes Auto (Bld) [#/Vo l]Ordered By: Roby Thakkar on 09-11-2023 Lymphocytes (Bld) [#/Vol] 1.0 10*3/uL 1.00-4.8 [facility] Lymphocytes/100 WBC Auto (Bl d)Ordered By: Roby Thakkar on 09-11-2023 Lymphocytes/100 WBC (Bld) 22.7 % . [facility] MCH Auto (RBC) [Entitic mass ]Ordered By: Roby Thakkar on 09-11-2023 MCH (RBC) [Entitic mass] 34.1 pg 24.7-34.3 [facility] MCHC Auto (RBC) [Mass/Vol]Or dered By: Roby Thakkar on 09-11-2023 MCHC (RBC) [Mass/Vol] 34.4 g/dL 32.0-35.0 [facility] MCV Auto (RBC) [Entitic vol] Ordered By: Roby Thakkar on 09-11-2023 MCV (RBC) [Entitic vol] 99.1 fL 80-100 [facility] Magnesiumon 09-11-2023 Magnesium [Mass/Vol] 1.7 mg/dL Low 1.9-2.7 [facility] Comment on above: Performed By: #### M G, BMP, PRL, CBC #### [address] Magnesium [Mass/volume] in S tessie or PlasmaOrdered By: Roby Thakkar on 09-11-2023 Magnesium [Mass/Vol] 1.7 mg/dL 1.9-2.7 [facility] Monocyte distribution width [Entitic volume] in Blood by AutomatedOrdered By: Roby Thakkar on 09-11-2023 Monocyte distribution width Auto (Bld) [Entitic vol] 21.57 % 0.00-20.00 [facility] Comment on above: For adults in ED, MD W > 20.0 may be associated with a higher risk of sepsis during the first 12 hrs of hospital admission Monocytes Auto (Bld) [#/Vol] Ordered By: Roby Thakkar on 09-11-2023 Monocytes (Bld) [#/Vol] 0.3 10*3/uL 0.0-0.8 [facility] Monocytes/100 WBC Auto (Bld) Ordered By: Roby Thakkar on 09-11-2023 Monocytes/100 WBC (Bld) 7.3 % . [facility] Neutrophils Auto (Bld) [#/Vo l]Ordered By: Roby Thakkar on 09-11-2023 Neutrophils (Bld) [#/Vol] 3.1 10*3/uL 1.8-7.7 [facility] Neutrophils/100 WBC Auto (Bl d)Ordered By: Roby Thakkar on 09-11-2023 Neutrophils/100 WBC (Bld) 68.8 % . [facility] Nitrite Test strip Ql (U)Ord ered By: Roby Thakkar on 09-11-2023 Nitrite Ql (U) Negative Negative [facility] No Panel InformationOrdered By: Roby Thakkar on 09-11-2023 Estimated GFR (CKD-EPI) > 60.0 mL/Min [facility] Creatinine Clearance (Chem 96.07 [facility] Nucleated erythrocytes [Pres ence] in Blood by Automated countOrdered By: Roby Thakkar on 09-11-2023 Nucleated RBC Auto Ql (Bld) 0.1 /100{WBC} 0-0.5 [facility] Opiates [Presence] in Urine by Screen methodOrdered By: Roby Thakkar on 09-11-2023 Opiates Screen Ql (U) Negative Negative [facility] Phencyclidine Screen Ql (U)O rdered By: Roby Thakkar on 09-11-2023 Phencyclidine Ql (U) Negative Negative [facility] Platelet mean volume Auto (B ld) [Entitic vol]Ordered By: Roby Thakkar on 09-11-2023 Platelet mean volume (Bld) [Entitic vol] 8.2 fL 6.3-10.7 [facility] Platelets Auto (Bld) [#/Vol] Ordered By: Roby Thakkar on 09-11-2023 Platelets (Bld) [#/Vol] 149 10*3/uL 150-450 [facility] Potassium [Moles/volume] in Serum or PlasmaOrdered By: Roby Thakkar on 09-11-2023 Potassium [Moles/Vol] 4.1 mmol/L 3.5-5.1 [facility] Comment on above: Hemolysis is present at a level that could interfere with the result. Prolactinon 09-11-2023 Prolactin 10.97 ng/mL Normal 3.34-26.72 [facility] Comment on above: Result Comment: PERF ORMED BY: [place] [id number] PATHOLOGIST [employer] ZURDO DOMINGO M.D. Performed By: #### M G, BMP, PRL, CBC #### [facility] [address] Prolactin [Mass/volume] in S tessie or PlasmaOrdered By: Roby Thakkar on 09-11-2023 Prolactin [Mass/Vol] 10.97 ng/mL 3.34-26.72 [facility] Protein Auto test strip (U) [Mass/Vol]Ordered By: Roby Thakkar on 09-11-2023 Protein (U) [Mass/Vol] Negative Negative [facility] RBC Auto (Bld) [#/Vol]Ordere d By: Roby Thakkar on 09-11-2023 RBC (Bld) [#/Vol] 3.62 10*6/uL 3.60-5.00 [facility] Serum or plasma anion gap de terminationOrdered By: Roby Thakkar on 09-11-2023 Anion gap [Moles/Vol] 13.2 mmol/L 6.0-15.0 [facility] Sodium [Moles/volume] in Ser um or PlasmaOrdered By: Roby Thakkar on 09-11-2023 Sodium [Moles/Vol] 135 mmol/L 136-145 [facility] Specific gravity Auto test s trip (U) [Rel density]Ordered By: Roby Thakkar on 09-11-2023 Specific gravity (U) [Rel density] 1.005 1.001-1.03 0 [facility] Urea nitrogen [Mass/volume] in Serum or PlasmaOrdered By: Roby Thakkar on 09-11-2023 Urea nitrogen [Mass/Vol] 6 mg/dL 7-25 [facility] Urine Cultureon 09-11-2023 Bacteria identified Cx Nom (U) No Growth 2 Days PERFORMED BY: [place] [id number] PATHOLOGIST [employer] ZURDO DOMINGO M.D. Normal [facility] Comment on above: Performed By: #### M G, CMP, CBC, PT #### [facility] [address] [place] [address] [facility] Urine bacteria detection by automated methodOrdered By: Roby Thakkar on 09-11-2023 Bacteria Auto Ql (U) 3+ None Seen [facility] Urine clarity by refractomet ry automatedOrdered By: Roby Thakkar on 09-11-2023 Clarity Refractometry automated (U) Cloudy Clear [facility] Urine culture routineOrdered By: Roby Thakkar on 09-11-2023 Bacteria identified Cx Nom (U) No Growth 2 Days [facility] Urine glucose measurement by automated test strip (mass/volume)Ordered By: Roby Thakkar on 09-11-2023 Glucose Auto test strip (U) [Mass/Vol] Normal mg/dL Normal [facility] Urine hemoglobin detection b y automated test stripOrdered By: Roby Thakkar on 09-11-2023 Hemoglobin Auto test strip Ql (U) Trace Negative [facility] Urine leukocyte esterase det ection by automated test stripOrdered By: Roby Thakkar on 09-11-2023 Leukocyte esterase Auto test strip Ql (U) 1+ Negative [facility] Urobilinogen Auto test strip (U) [Mass/Vol]Ordered By: Roby Thakkar on 09-11-2023 Urobilinogen (U) [Mass/Vol] Normal mg/dL Normal [facility] WBC Auto (Bld) [#/Vol]Ordere d By: Roby Thakkar on 09-11-2023 WBC (Bld) [#/Vol] 4.4 10*3/uL 3.8-11.6 [facility] pH Auto test strip (U)Ordere d By: Roby Thakkar on 09-11-2023 pH (U) 6.0 [pH] 5.0-9.0 [facility] Progress Noteson 06-11-2023 Mysql Database Developer Authentication Interface Message Text EMERGENCY TRIAGE, TREAT AND TRANSPORT (ET3) DOCUMENTATION OF TELEHEALTH VISIT Date / Time: 06/11/2023 / 06 Name: Karyn Ayala : 1990 SSN: (Not on file) EMS Agency: [facility] [x] Verbal consent obtained [] Implied consent - patient with potential emergency medical condition requiring assessment of capacity to refuse treatment and/or transport VITAL SIGNS: see flowsheet documentation Reason for Telehealth Visit: Chief Complaint Patient presents with Seizures History of Present Illness: EMS was called by the daughter after she witnessed the patient have 2 seizures lasting 4-5 minutes each while she was lying in bed. No trauma. Had a seizure 2 years ago but did not seek care. Not on seizure medications. Patient believes is related to her alcohol use as she had two 24 oz cans of beer daily. Last drink was 9:00 p.m. last night. She currently denies any complaints. Refusing transport. Additional pertinent PMHx, SocHx, FamHx: No hx of seizures Regular alcohol and heroin use Review of Systems: Denies the following: Fever, cough, headache, vision changes, numbness, tingling, or weakness Exam: General: Awake, no distress ENT: normocephalic, atraumatic Pulmonary: No respiratory distress Cardiovascular: Well perfused Neurologic: Oriented to person, place, time and events. Moving all extremities equally. Psychiatric: Appropriate. Good insight and judgement. Medical Decision Making: Patient appears to have alcohol withdrawal seizures. No signs of trauma. Unclear if the patient is as this could be eclampsia. May also be brain tumor or undiagnosed epilepsy. Strongly encouraged the patient to be transported to the nearest ED but she declined. Had full medical decision-making capabilities and was not altered. Encouraged her to slowly discontinue her alcohol use and avoid any dangerous situations or driving a car until she is seen by physician. She declined transport. I advised her to call 911 with any changes. Disposition Supported by Telehealth Assessment: ET3 transport decisions: Refused transport EMS Disposition Reported: Same ET3 Encounter Completed by: Joe Diana DO Normal [facility] [employer] [facility] CBC AUTO DIFFon 06-16-2021 BASO # 0.1 103/ul Normal 0.0-0.1 [facility] Comment on above: Performed By: #### C BC ####[facility] [address] [place] [address] Basophils/100 WBC (Bld) 0.5 % Normal 0.2-2.0 [facility] Comment on above: Performed By: #### C BC ####[facility] [address] [place] EO # 0.0 103/ul Normal 0.0-0.7 [facility] Comment on above: Performed By: #### C BC ####[facility] [address] [place] Eosinophils/100 WBC (Bld) 0.2 % Critically low 0.9-7.0 [facility] Comment on above: Performed By: #### C BC ####[facility] [address] [place] Erythrocyte distribution width (RBC) [Ratio] 12.4 % Normal 11.0-15.0 [facility] Comment on above: Performed By: #### C BC ####[facility] [address] [place] [address] [place] Hematocrit (Bld) [Volume fraction] 55.2 % Critically high 36.0-48.0 [facility] Comment on above: Performed By: #### C BC ####[facility] [address] [place] [address] [place] Hemoglobin (Bld) [Mass/Vol] 18.3 g/dL Critically high 12.0-16.0 [facility] Comment on above: Performed By: #### C BC ####[facility] [address] [place] [address] [place] IG # 0.06 10e3/ul Critically high 0.00-0.03 [facility] Comment on above: Performed By: #### C BC ####[facility] [address] [place] [address] [place] IG % 0.6 % Critically high 0.0-0.5 [facility] Comment on above: Performed By: #### C BC ####[facility] [address] [place] [address] [place] LYMPH # 1.9 103/ul Normal 1.2-3.8 [facility] Comment on above: Performed By: #### C BC ####[facility] [address]34 [place] [id number] Oriana Lymphocytes/100 WBC (Bld) 19.2 % Critically low 20.5-60.0 [facility] Comment on above: Performed By: #### C BC ####[facility] [id number] [place] [id number] Ori[place] MANUAL DIFF REQ NO Normal [facility] Comment on above: Performed By: #### C BC ####[facility] Nphwtwodji0588 [place] [id number] Oriana MCH (RBC) [Entitic mass] 29.5 pg Normal 26.7-34.0 [facility] Comment on above: Performed By: #### C BC ####[facility] [address] [place] [address] Oriana MCHC (RBC) [Mass/Vol] 33.2 g/dL Normal 29.9-35.2 [facility] Comment on above: Performed By: #### C BC ####[facility] [address] [place] [address] Ori[place] MCV (RBC) [Entitic vol] 89.0 fL Normal 81.0-99.0 [facility] Comment on above: Performed By: #### C BC ####[facility] Zsqjgtogyf0291 [place] [id number] Oriana MONO # 0.4 103/ul Normal 0.3-0.8 [facility] Comment on above: Performed By: #### C BC ####[facility] Xthkdcfsnm1737 [place] [id number] Gastelum Monocytes/100 WBC (Bld) 3.8 % Normal 1.7-12.0 [facility] Comment on above: Performed By: #### C BC ####[facility] [address] [place], [place] [address]Gerken Oriana NEUT # 7.6 103/ul Critically high 1.4-6.5 [facility] Comment on above: Performed By: #### C BC ####[facility] Glfirsszfv0633 [place] [id number] Gastelum Neutrophils/100 WBC (Bld) 75.7 % Critically high 43.0-75.0 [facility] Comment on above: Performed By: #### C BC ####[facility] Gbhxbajnwh4507 [place] [id number] Gastelum Platelet mean volume (Bld) [Entitic vol] 8.8 fL Critically low 9.5-13.5 [facility] Comment on above: Performed By: #### C BC ####[facility] Znexnwbium5299 [place] [address]Gerken Oriana PLT 438 103/ul Normal 150-450 [facility] Comment on above: Performed By: #### C BC ####[facility] Gsgpfqwqsm1997 [place] [address]Gerken Oriana RBC 6.20 106/ul Critically high 4.20-5.40 [facility] Comment on above: Performed By: #### C BC ####[facility] Yvdxcatjzy9930 [place] [id number] Oriana WBC 10.1 103/ul Normal 4.0-11.0 [facility] Comment on above: Performed By: #### C BC ####[facility] Cvczebniqi8770 [place] [id number] Gastelum DRUG SCREEN RAPID (URINE)on 06-16-2021 AMP Negative Normal NEGATIVE [facility] Comment on above: Performed By: #### P REGU, DRUGRPD #### [facility] [address] [place] [address] Jay Oriana BAR Negative Normal NEGATIVE [facility] Comment on above: Performed By: #### P REGU, DRUGRPD #### [facility] [address] [place] [id number] Jay Oriana BUP Positive Abnormal NEGATIVE [facility] Comment on above: Performed By: #### P REGU, DRUGRPD #### [facility] [address] [place] [address] Jay Oriana BZO Negative Normal NEGATIVE [facility] Comment on above: Performed By: #### P REGU, DRUGRPD #### [facility] [address] [place], [place] [address] POLINA Negative Normal NEGATIVE [facility] Comment on above: Performed By: #### P REGU, DRUGRPD #### [facility] [address] [place] [address] [facility] SEE BELOW Normal [facility] Comment on above: Result Comment: AMP (Amphetamine): 500ng/mL, BAR (Barbituates): 200 ng/mL, BZO (Benzodiazepines): 150 ng/mL, BUP (Buprenorphine): 10 ng/mL, POLINA (Cocaine): 150 ng/mL, mAMP (Methamphetamine): 500 ng/mL, MTD (Methadone): 200 ng/mL, OPI (Opiates): 100 ng/mL, OXY (Oxycodone): 100 ng/mL, PCP (Phencyclidine): 25 ng/mL, PPX (Propoxyphene): 300 ng/mL, THC (Cannabinoids): 50 ng/mL, TCA (Trycyclic Antidepressants): 300 ng/mL Performed By: #### P REGU, DRUGRPD #### [facility] [address] [place] [address] DRUG CUT HEADER DRUG CLASS TEST SYST EM CUT-OFF CONCENTRATIONS ARE FOLLOWS: Normal [facility] Comment on above: Performed By: #### P REGU, DRUGRPD #### [facility] [address] [place] [address] mAMP Negative Normal NEGATIVE [facility] Comment on above: Performed By: #### P REGU, DRUGRPD #### [facility] [address] [place] [address] Jay Oriana MTD Negative Normal NEGATIVE [facility] Comment on above: Performed By: #### P REGU, DRUGRPD #### [facility] [address] [place] [address] Jay Oriana OPI Negative Normal NEGATIVE [facility] Comment on above: Performed By: #### P REGU, DRUGRPD #### [facility] [address] [place] [address] Jay Oriana OXY Negative Normal NEGATIVE [facility] Comment on above: Performed By: #### P REGU, DRUGRPD #### [facility] [address] [place] [address] Jay Oriana PCP Negative Normal NEGATIVE [facility] Comment on above: Performed By: #### P REGU, DRUGRPD #### [facility] [address] [place] [address] Jay Oriana PPX Negative Normal NEGATIVE [facility] Comment on above: Performed By: #### P REGU, DRUGRPD #### [facility] [address] [place] [address] Jay Oriana TCA Negative Normal NEGATIVE [facility] Comment on above: Performed By: #### P REGU, DRUGRPD #### [facility] [address] [place] [address] Jay Oriana THC Negative Normal NEGATIVE [facility] Comment on above: Performed By: #### P REGU, DRUGRPD #### [facility] [address] [place] [address] Jay Oriana URon 06-16-2021 , QUAL Negative Normal NEGATIVE [facility] Comment on above: Performed By: #### P REGU, DRUGRPD #### [facility] [address] [place] [address] Jayevangelist Ahumadaen PROF CHEM 8 (BAS METB)on Anion gap [Moles/Vol] 20.1 mmol/L Normal [facility] Comment on above: Performed By: #### B MP #### [facility] [address] [place] [address] Jay Oriana Calcium [Mass/Vol] 9.7 mg/dL Normal 8.4-10.2 [facility] Comment on above: Performed By: #### B MP #### [facility] [address] [place] [address] Jay Oriana Chloride [Moles/Vol] 102 mmol/L Normal 98-107 [facility] Comment on above: Performed By: #### B MP #### [facility] [address] [place] [id number] Jay Oriana CO2 [Moles/Vol] 21.7 mmol/L Critically low 22.0-30.0 [facility] Comment on above: Performed By: #### B MP #### [facility] [address] [place] [id number] Jay Oriana Creatinine [Mass/Vol] 1.03 mg/dL Normal 0.52-1.04 [facility] Comment on above: Performed By: #### B MP #### [facility] [address] [place] [id number] Jay Oriana EGFR-AF VIETNAMESE >60 Normal >=60 [facility] Comment on above: Performed By: #### B MP #### [facility] [address] [place] [address] Jay Oriana EGFR-NON AF VIETNAMESE >60 Normal >=60 [facility] Comment on above: Performed By: #### B MP #### [facility] [address] [place] [address] Jay Oriana Glucose [Mass/Vol] 112 mg/dL Critically high 74-106 [facility] Comment on above: Performed By: #### B MP #### [facility] [address] [place] [address] Jay Oriana Potassium [Moles/Vol] 3.8 mmol/L Normal 3.4-5.0 [facility] Comment on above: Performed By: #### B MP #### [facility] [address] [place] [address] Jay Oriana Sodium [Moles/Vol] 140 mmol/L Normal 137-145 [facility] Comment on above: Performed By: #### B MP #### [facility] [address] [place] [id number] Jay Oriana Urea nitrogen [Mass/Vol] 6.0 mg/dL Critically low 7.0-17.0 [facility] Comment on above: Performed By: #### B MP #### [facility] [address] [place], [place] [address] Jay Gastelum Urea nitrogen/Creatinine [Mass ratio] 5.8 mg/mg Normal [facility] Comment on above: Performed By: #### B MP #### [facility] [address] [place] [address] Jay Gastelum HEPATITIS PANEL, ACUTEon HBsAg Screen Negative Normal Negative [facility] Comment on above: Performed By: #### H EPACUT ####[facility] Sydazxhbgj[address] [place] Hep A Ab, IgM Negative Normal Negative [facility] Comment on above: Performed By: #### H EPACUT ####[facility] Trkkqxhcsa[address] [place] Hep B Core Ab, IgM Negative Normal Negative [facility] Comment on above: Performed By: #### H EPACUT ####[facility] Ohmznfkese8792 [place] [address]Jay Gastelum Hep C Virus Ab <0.1 Normal 0.0-0.9 [facility] Comment on above: Result Comment: Nega tive: < 0.8 Indeterminate: 0.8 - 0.9 Positive: > 0.9 . The CDC recommends that a positive HCV antibody result be followed up with a HCV Nucleic Acid Amplification test (094796). Performed By: #### H EPACUT ####[facility] [address]tsdlumlvn[address]289 [place] [address]Gerken Oriana XR FOOT SADE MIN 3 VIEWSon XR FOOT SADE MIN 3 VIEWS EXAMINATION: XR FOOT SADE MIN 3 VIEWS HISTORY: Pain in both feet COMPARISON: No relevant comparison available. FINDINGS: RIGHT FINDINGS: BONES: No acute fracture. Moderate hallux valgus. Lateral subluxation of the first distal phalanx relation to the first middle phalanx. 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 No visible soft tissue swelling. OTHER: Negative. LEFT FINDINGS: BONES: No acute fracture. Moderate hallux valgus. Lateral subluxation of the first distal phalanx relation to the first middle phalanx. 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 No visible soft tissue swelling. OTHER: Negative. 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 Electronically authenticated by: NIESHA MORRIS Date: 2020-07-02 11:36 Normal [facility] CBC AUTO DIFFon 07-01-2020 BASO # 0.0 103/ul Normal 0.0-0.1 [facility] Comment on above: Performed By: #### C BC #### [facility] [address] [place] [address] Jay Oriana Basophils/100 WBC (Bld) 0.4 % Normal 0.2-2.0 [facility] Comment on above: Performed By: #### C BC #### [facility] [address] [place] [address] Jay Oriana EO # 0.1 103/ul Normal 0.0-0.7 [facility] Comment on above: Performed By: #### C BC #### [facility] [address] [place] [address] Jay Oriana Eosinophils/100 WBC (Bld) 0.7 % Critically low 0.9-7.0 [facility] Comment on above: Performed By: #### C BC #### [facility] [address] [place] [address] Jya Oriana Erythrocyte distribution width (RBC) [Ratio] 13.2 % Normal 11.0-15.0 [facility] Comment on above: Performed By: #### C BC #### [facility] [address] [place] [address] Jay Oriana Hematocrit (Bld) [Volume fraction] 40.6 % Normal 36.0-48.0 [facility] Comment on above: Performed By: #### C BC #### [facility] [address] [place] [address] Jay Oriana Hemoglobin (Bld) [Mass/Vol] 13.5 g/dL Normal 12.0-16.0 [facility] Comment on above: Performed By: #### C BC #### [facility] [address] [place] [id number] Jay Oriana IG # 0.02 10e3/ul Normal 0.00-0.03 [facility] Comment on above: Performed By: #### C BC #### [facility] [address] [place] [id number] Jay Oriana IG % 0.2 % Normal 0.0-0.5 [facility] Comment on above: Performed By: #### C BC #### [facility] [address] [place] [address] Jay Oriana LYMPH # 2.4 103/ul Normal 1.2-3.8 [facility] Comment on above: Performed By: #### C BC #### [facility] [address] [place] [address] Jay Oriana Lymphocytes/100 WBC (Bld) 22.2 % Normal 20.5-60.0 [facility] Comment on above: Performed By: #### C BC #### [facility] [address] [place], [place] [id number] Jay Oriana MANUAL DIFF REQ NO Normal [facility] Comment on above: Performed By: #### C BC #### [facility] [address] [place], [place] [id number] Jay Oriana MCH (RBC) [Entitic mass] 31.3 pg Normal 26.7-34.0 [facility] Comment on above: Performed By: #### C BC #### [facility] [address] [place] [address] Jay Oriana MCHC (RBC) [Mass/Vol] 33.3 g/dL Normal 29.9-35.2 [facility] Comment on above: Performed By: #### C BC #### [facility] [address] [place], [place] [id number] Jay Oriana MCV (RBC) [Entitic vol] 94.2 fL Normal 81.0-99.0 [facility] Comment on above: Performed By: #### C BC #### [facility] [address] [place] [id number] Jay Oriana MONO # 0.9 103/ul Critically high 0.3-0.8 [facility] Comment on above: Performed By: #### C BC #### [facility] [address] [place] [id number] Jay Oriana Monocytes/100 WBC (Bld) 8.4 % Normal 1.7-12.0 [facility] Comment on above: Performed By: #### C BC #### [facility] [address] [place] [id number] Jay Oriana NEUT # 7.3 103/ul Critically high 1.4-6.5 [facility] Comment on above: Performed By: #### C BC #### [facility] [address] [place] [address] Jay Oriana Neutrophils/100 WBC (Bld) 68.1 % Normal 43.0-75.0 [facility] Comment on above: Performed By: #### C BC #### [facility] [address] [place], [place] [id number] Jayevangelist Ahumadaen Platelet mean volume (Bld) [Entitic vol] 9.7 fL Normal 9.5-13.5 [facility] Comment on above: Performed By: #### C BC #### [facility] [address] [place], [place] [id number] Jay Ori[place] PLT 231 103/ul Normal 150-450 [facility] Comment on above: Performed By: #### C BC #### [facility] [address] [place] [id number] Jay Oriana RBC 4.31 106/ul Normal 4.20-5.40 [facility] Comment on above: Performed By: #### C BC #### [facility] [address] [place], [place] [id number] Jay Oriana WBC 10.8 103/ul Normal 4.0-11.0 [facility] Comment on above: Performed By: #### C BC #### [facility] [address] [place], [place] [id number] Jay Oriana FREE THYROXINE INDEX T7on FTI 2.41 Normal [facility] Comment on above: Performed By: #### L IPID, T7, TSH, CMP #### [facility] [address] [place], [place] [id number] Jayevangelist Gastelum T3U 29.0 % Normal 23.5-40.5 [facility] Comment on above: Performed By: #### L IPID, T7, TSH, CMP #### [facility] [address] [place], [place] [id number] Jayevangelist Gastelum T4 [Mass/Vol] 8.30 ug/dL Normal 5.53-11.00 [facility] Comment on above: Performed By: #### L IPID, T7, TSH, CMP #### [facility] [address] [place] [address] Jayevangelist Gastelum GLYCOHEMOGLOBIN A1Con 2019 Glucose [Mass/Vol] 105 mg/dL Normal [facility] Comment on above: Performed By: #### A 1C #### [facility] [address] [place] [address] Jayevangelist Gastelum HbA1c (Bld) [Mass fraction] 5.3 % Normal <=6.0 [facility] Comment on above: Performed By: #### A 1C #### [facility] [address] [place] [address] Jayevangelist Gastelum IRONon 07-01-2020 Iron [Mass/Vol] 65.0 ug/dL Normal 37.0-170.0 [facility] Comment on above: Performed By: #### I CEZAR #### [facility] [address] [place] [address] Jayevangelist Gastelum LIPID PROFILEon 07-01-2020 CHOL-HDL RATIO NORM SEE BELOW Normal [facility] Comment on above: Result Comment: 3.3 - 4.4 LOW RISK 4.4 - 7.1 AVERAGE RISK 7.1 - 11.0 MODERATE RISK >11.0 HIGH RISK Performed By: #### L IPID, T7, TSH, CMP #### [facility] [address] [place] [address] Jay Oriana Cholesterol [Mass/Vol] 202 mg/dL Critically high <=200 [facility] Comment on above: Performed By: #### L IPID, T7, TSH, CMP #### [facility] [address] [place] [address] Jay Oriaan Cholesterol in HDL [Mass/Vol] 39 mg/dL Normal [facility] Comment on above: Performed By: #### L IPID, T7, TSH, CMP #### [facility] [address] [place] [address] Jay Oriana Cholesterol in LDL [Mass/Vol] 128.0 mg/dL Normal [facility] Comment on above: Performed By: #### L IPID, T7, TSH, CMP #### [facility] [address] [place] [address] Jay Oriana Cholesterol.total/Chol esterol in HDL [Mass ratio] 5.2 {ratio} Normal [facility] Comment on above: Performed By: #### L IPID, T7, TSH, CMP #### [facility] [address] [place] [address] Jay Oriana HDL NORMAL > or = 60 mg/dl - LO W CARDIOVASCULAR RISK <40 mg/dl - HIGH CARDIOVASCULAR RISK Normal [facility] Comment on above: Performed By: #### L IPID, T7, TSH, CMP #### [facility] [address] [place] [address] Jay Oriana LDL CALC NORMAL SEE BELOW Normal [facility] Comment on above: Result Comment: <100 mg/dl OPTIMAL 100 - 129 mg/dl NEAR OR ABOVE OPTIMAL 130 - 159 mg/dl BORDERLINE HIGH 160 - 189 mg/dl HIGH >190 mg/dl VERY HIGH Performed By: #### L IPID, T7, TSH, CMP #### [facility] [address] [place] [address] Jay Oriana Triglyceride [Mass/Vol] 175 mg/dL Critically high <=150 [facility] Comment on above: Performed By: #### L IPID, T7, TSH, CMP #### [facility] [address] [place] [address] Jay Oriana VLDL CALC 35.0 mg/dL Normal [facility] Comment on above: Performed By: #### L IPID, T7, TSH, CMP #### [facility] [address] [place] [id number] Jay Gastelum PROF 14(COMP METB)on 020 Albumin [Mass/Vol] 3.8 g/dL Normal 3.5-5.0 [facility] Comment on above: Performed By: #### L IPID, T7, TSH, CMP #### [facility] [address] [place], [place] [id number] Jayevangelist Gastelum Albumin/Globulin [Mass ratio] 1.0 {ratio} Normal [facility] Comment on above: Performed By: #### L IPID, T7, TSH, CMP #### [facility] [address] [place] [address] Jay Oriana ALP [Catalytic activity/Vol] 125 U/L Normal 38-126 [facility] Comment on above: Performed By: #### L IPID, T7, TSH, CMP #### [facility] [address] [place] [address] Jay Oriana ALT [Catalytic activity/Vol] 38 U/L Normal 9-52 [facility] Comment on above: Performed By: #### L IPID, T7, TSH, CMP #### [facility] [address] [place] [address] Jayevangelist Ahumadaen Anion gap [Moles/Vol] 10.9 mmol/L Normal [facility] Comment on above: Performed By: #### L IPID, T7, TSH, CMP #### [facility] [address] [place] [address] Jay Oriana AST [Catalytic activity/Vol] 27 U/L Normal 14-36 [facility] Comment on above: Performed By: #### L IPID, T7, TSH, CMP #### [facility] [address] [place], [place] [id number] Jay Oriana Bilirubin [Mass/Vol] 0.4 mg/dL Normal 0.2-1.3 [facility] Comment on above: Performed By: #### L IPID, T7, TSH, CMP #### [facility] [address] [place] [address] Jay Oriana Calcium [Mass/Vol] 9.6 mg/dL Normal 8.4-10.2 [facility] Comment on above: Performed By: #### L IPID, T7, TSH, CMP #### [facility] [address] [place] [address] Jay Oriana Chloride [Moles/Vol] 102 mmol/L Normal 98-107 [facility] Comment on above: Performed By: #### L IPID, T7, TSH, CMP #### [facility] [address] [place] [address] Jay Oriana CO2 [Moles/Vol] 29.8 mmol/L Normal 22.0-30.0 [facility] Comment on above: Performed By: #### L IPID, T7, TSH, CMP #### [facility] [address] [place] [address] Jay Oriana Creatinine [Mass/Vol] 0.82 mg/dL Normal 0.52-1.04 [facility] Comment on above: Performed By: #### L IPID, T7, TSH, CMP #### [facility] [address] [place] [address] Jay Oriana EGFR-AF VIETNAMESE >60 Normal >=60 [facility] Comment on above: Performed By: #### L IPID, T7, TSH, CMP #### [facility] [address] [place] [address] Jay Oriana EGFR-NON AF VIETNAMESE >60 Normal >=60 [facility] Comment on above: Performed By: #### L IPID, T7, TSH, CMP #### [facility] [address] [place] [address] Jay Oriana Globulin (S) [Mass/Vol] 3.7 g/dL Normal [facility] Comment on above: Performed By: #### L IPID, T7, TSH, CMP #### [facility] [address] [place] [address] Jay Oriana Glucose [Mass/Vol] 97 mg/dL Normal 74-106 [facility] Comment on above: Performed By: #### L IPID, T7, TSH, CMP #### [facility] [address] [place] [address] Jay Oriana Potassium [Moles/Vol] 3.7 mmol/L Normal 3.4-5.0 [facility] Comment on above: Performed By: #### L IPID, T7, TSH, CMP #### [facility] [address] [place] [address] Jay Oriana Protein [Mass/Vol] 7.5 g/dL Normal 6.1-8.2 [facility] Comment on above: Performed By: #### L IPID, T7, TSH, CMP #### [facility] [address] [place] [address] Jay Oriana Sodium [Moles/Vol] 139 mmol/L Normal 137-145 [facility] Comment on above: Performed By: #### L IPID, T7, TSH, CMP #### [facility] [address] [address] Jay Oriana Urea nitrogen [Mass/Vol] 4.0 mg/dL Critically low 7.0-17.0 [facility] Comment on above: Performed By: #### L IPID, T7, TSH, CMP #### [facility] [address] [address] Jay Oriana Urea nitrogen/Creatinine [Mass ratio] 4.9 mg/mg Normal [facility] Comment on above: Performed By: #### L IPID, T7, TSH, CMP #### [facility] [address] [address] Jay Oriana TSHon 07-01-2020 TSH 2.215 uIU/mL Normal 0.470-4.68 0 [facility] Comment on above: Performed By: #### L IPID, T7, TSH, CMP ####[facility] [id number] [address]Gerken Oriana TSH RANGE SEE BELOW Normal [facility] Comment on above: Result Comment: <0.3 4 UIU/ml HYPERTHYROID 0.34-5.60 UIU/ml EUTHYROID >5.60 UIU/ml HYPOTHYROID Performed By: #### L IPID, T7, TSH, CMP ####[facility] [address] [id number] Gipson 06-12-2019 CNOV Office Visit (NENMMN ) -- KARYN ESTES ([id number]) 1990 F Date Time Provider Department 06/12/19 9:45 AM BESSY SHERIFF (MARK) NEMEMN During your visit today, we recorded the following information about you: Pulse Respiration Blood pressure Weight 126/minute 18/minute 110/74 50.3 kg Height 1.676 m Christel Larose MD, PhD 06/26/2019 1:28 AM Signed [facility] Consult Visit Note Referring provider AND PCP - Carl Child MD [facility] [place] [address] [address]Douglas Child for an opinion regarding generalized weakness. Our final recommendations will be communicated back to the requesting physician by way of shared Medical record or letter to requesting physician via US mail. History of Present Illness: Ms. Estes is a pleasant 29 year old right-handed female with a h/o depression presenting for evaluation of generalized weakness. Symptoms first started in Jul 2018 - she was unable to provide details but her boyfriend was able to state that she got a viral illness with fever, chills, myalgias, flu like s/s that lasted a few days and possibly colitis at that time as well (per OSH records) and then followed 10 days to 2 weeks later by tingling (pins and needles sensation) in both hands (all fingertips) and feet (whole foot involved) that progressed gradually in about a week or 10 days up both legs up to her hips. This was also associated with weakness in both legs that appeared soon after the tingling had progressed up the legs as per the boyfriend. Denies saddle anesthesia and bowel/bladder incontinence at that time. No progression of s/s up her arms or hands. No difficulty holding head up or breathing or swallowing. The symptoms did not wax and wane. She sought medical help when she had a fall and then went to the PCP - she was then sent to an OSH ([place]) as she could barely walk at all at that time. The patient's boyfriend says she did not have any reflexes in her legs. A spinal tap was done (was normal about 10 days after s/s onset and per report CSF opening pressure 9, nucleated cells <1, RBC; 2, Glu 69, protein 15, meningitis panel negative.) and MRI brain w/wo contrast, MRI cervical and lumbar spine w/wo contrast were also normal (no mention is made of presence or absence of nerve root enhancement in the report and no images are available for review). Documentation of exam from that time shows that she had 2+ symmetric reflexes at biceps , brachioradialis, 1+ patellar b/l and at achilles. She also had a foot drop b/l. She denies having a foot drop prior to that episode. At that time, she was given IV fluids and pain medications and then sent to rehab - she was there for about 3 weeks and made a lot of progress where she was able to walk and strength returned to normal and she felt the numbness/tingling also reduced and felt it mostly just in her feet. It appears though that she did have some mild residual weakness and numbness in her feet since then. She was able to go back to work and function normally following that episode and stayed well with no progression or recurrence of symptoms until about 2 months ago. In March 2019 she had an episode of fever followed by intractable vomiting (denied abdominal pain, headache, neck stiffness) that lasted about 3 weeks where she could not keep anything down - fever resolved in a day or so but vomiting continued. She was taken to Dr Child who sent her to a [facility] where she was given hydration and a dissolving antiemetic which would help for a few hours but did not help resolve s/s. She was not admitted for long at that time and had no weakness. Weakness started a few days after she was hydrated - weakness was in both legs up to hips and tingling/pins and needles sensation also progressed up her legs to mid calf b/l. Denied back pain. She was so lethargic from all the vomiting that she does not know if she had weakness in her arms as well. She lost about 15-20 lb in those 3 weeks. No sick contacts. Denies bladder or bowel incontinence or saddle anesthesia but she wasn't peeing as much as she was not hydrated. She needed several treatments of IVFs during those three weeks but was not hospitalized. She would only throw up if she ate or drank anything, not when she was not eating/drinking. Then about 3 weeks later when s/s started to resolve on their own, she began to be more aware of her surroundings and realized that she could not remember things well (she could recognize people but would forget things said to her, she forgot about the first episode of weakness/tingling as well). She was then brought to the ED here - labs with hypokalemia (mild) and some e/o dehydration but no significant electrolyte abnormalities and as per the neuro exam noted here she had vibration diminished in R index finger but nowhere else, and had giveway weakness in multiple muscle groups in arms and legs. Plantar reflexes were mute, triceps 2+ and symmetric. Patellar and achilles absent b/l as per the note from that visit. UDS and serum alcohol level were negative. B12 was normal (1214). 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 She has been at rehab for about a month and has made significant progress and she is starting to walk with the help of a walker - about 60% of baseline. Labs: Vit D was 6.1 - she is on replacement now. CK was 84 Heavy metal screen was negative. 08/2018 labs IgG/albumin ratio was 0.20 (upper limit of normal 0.17) NMO Ab negative in serum OCBs not seen in CSF Lyme disease Ab CSF negative SPEP normal. Paraneoplastic panel negative in CSF Meningitis panel negative BERTHA negative HIV negative ESR 9 normal Thiamine 47 - (low) - on replacement now Copper 31 low B6 18.4 low PAST HISTORY: MEDICAL PAST MEDICAL HISTORY Diagnosis Date - Substance abuse (HCC) H/o IV heroin use 6 years ago SURGICAL PAST SURGICAL HISTORY Procedure Laterality Date - TONSILLECTOMY HX Medications: Current Outpatient Medications: potassium chloride 20 mEq TbER Take by mouth. ergocalciferol 50,000 unit capsule (VITAMIN D2, DRISDOL) Take 1 capsule by mouth once each week. Every Tuesday for one month mirtazapine (REMERON) 15 mg tablet Take 1 tablet by mouth daily at bedtime for 2 doses. thiamine (VITAMIN B1) 100 mg tablet Take 1 tablet by mouth once daily for 86 doses. No current facility-administered medications for this visit. Allergies: See updated allergies documented below. ALLERGIES No Known Allergies Social History Socioeconomic History Marital status: Single Spouse name: Not on file Number of children: Not on file Years of education: Not on file Highest education level: Not on file Occupational History Not on file Social Needs Financial resource strain: Not on file Food insecurity: Worry: Not on file Inability: Not on file Transportation needs: Medical: Not on file Non-medical: Not on file Tobacco Use Smoking status: Never Smoker Smokeless tobacco: Never Used Tobacco comment: 1/2 ppd for 10 years, quit last year. Uses Juul Substance and Sexual Activity Alcohol use: Yes Comment: none since hospitalization, prior to that she was drinking 3 beers/day for some months Drug use: Not on file Comment: IV heroin use 6 years ago, used it for <1 year. Sexual activity: Not on file Lifestyle Physical activity: Days per week: Not on file Minutes per session: Not on file Stress: Not on file Relationships Social connections: Talks on phone: Not on file Gets together: Not on file Attends adventist service: Not on file Active member of club or organization: Not on file Attends meetings of clubs or organizations: Not on file Relationship status: Not on file Intimate partner violence: Fear of current or ex partner: Not on file Emotionally abused: Not on file Physically abused: Not on file Forced sexual activity: Not on file Other Topics Concerns: Not on file Social History Narrative 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 Review of Systems Constitutional: Negative. HENT: Negative. Eyes: Negative. Respiratory: Negative. Cardiovascular: Negative. Gastrointestinal: Negative. Genitourinary: Negative. Musculoskeletal: Negative. Skin: Negative. Neurological: Positive for sensory change and weakness. Endo/Heme/Allergies: Negative. Psychiatric/Behavioral: Positive for memory loss. Vital Signs: BP 110/74 Pulse (!) 126 Resp 18 Ht 167.6 cm (5' 6 ) Wt 50.3 kg (111 lb) BMI 17.92 kg/m? General Medical Exam: General: Clinically well-appearing, comfortable, sitting in wheelchair. Eyes/ENT: see cranial nerve examination. Neck: No masses appreciated. Adequate range of motion without tenderness. Respiratory: Clear to auscultation, good air entry bilaterally. Cardiac/vascular: Regular rate and rhythm, no murmur appreciated. GI: non-distended abdomen. Rectal examination deferred. Back: Moderate range flexion and extension with no pain to palpation. Extremities: mild foot drop b/l, ?arthritis at L great toe. Skin: Skin color, texture, turgor normal. No pertinent rashes or lesions. Neurologic Exam: Mental status including: orientation to time, place, person, language, and fund of knowledge is essentially normal. CRANIAL NERVES: II: No visual field defects. Funduscopic examination deferred. III-IV-: Pupils equal round and reactive to light. Normal conjugate, extra-ocular eye movements in all directions of gaze. Mild non sustained end gaze nystagmus. No ptosis prior to or post sustained upgaze. V: Normal facial sensation. Jaw jerk is normal. VII: Normal facial symmetry and movements. No pathologic facial reflexes. VIII: Normal hearing and vestibular function. IX-X: Normal palatal movement. XI: Normal shoulder shrug and head rotation. XII: Normal tongue strength and range of motion, no deviation or fasciculation. Speech is not dysarthric. MOTOR: Mild atrophy of distal foot muscles. No fasciculations or abnormal movements. No pronator drift. No scapular winging. Tone is within normal limits except at ankle where it is reduced and distal joints/great toes could not be extended well (arthritis vs contracture). Strength/Power (MRC grade- out of 5): Neck Flexion 5 Neck Extension 5 Upper extremity power, when graded out of 5, revealed some giveway weakness with some distractibility ? Right Left shoulder abduction 5 5 shoulder adduction 5 5 shoulder internal rotation 5 5 shoulder external rotation 5 5 elbow extension 5 5 elbow flexion 5 5 forearm supination 5 5 forearm pronation 5 5 wrist extension 5 5 wrist flexion 5 5 finger extension 5 5 deep finger flexion (D2-3) 5 5 deep finger flexion (D4-5) 5 5 thumb flexion with FPL 5 5 thumb abduction with APB 5 5 finger abduction 5 5 Lower extremity strength, when reported the same way, showed:? ? Right Left hip flexion 5- 5- hip extension 5- 5- hip adduction 5- 5- hip abduction 5 5 knee flexion 5- 5- knee extension 5 5 ankle dorsiflexion 4- 4 ankle plantar flexion 5- 5- foot inversion 4+ 4+ foot eversion 4- 4- toe extension 4- 4- toe flexion 4- 4- Distal muscle groups appeared to be weaker than more proximal muscles in the foot. Could not walk or stand without support. Deep Tendon Reflexes (DTRs):?Per NINDS grading system ? Right Left Biceps 0 0 Triceps 0 0 Brachioradialis 0 0 Patellar 0 0 Achilles 0 0 Pectoralis reflexes present b/l No TFL contraction seen Vendorovich could not be elicited Could not perform foot tapping well b/l Vertical spread: No Crossed adductors: No Doe's sign: No Tromner's sign: No Plantar responses: flexor Clonus: No SENSORY: Normal to light touch b/l in arms and legs. Reduced to temperature and PP in a length-dependent distribution in legs (worst at forefoot, improved in hindfoot/ankle and leg, normal at about mid-thigh) and in hands (normal at palms/dorsum but reduced at fingers). Reduced vibration perception at great toes (nearly absent) and at ankles (10 seconds) with preserved vibration perception at knees b/l. Proprioception at great toes impaired to small excursions but not to larger excursions and is normal at ankle. Romberg's sign could not be tested as patient could not stand without support. No extinction on double simultaneous stimulation. Straight leg raising-bilaterally negative COORDINATION/GAIT: Normal finger-to- nose-finger b/l. Intact rapid alternating movements bilaterally. Gait could not be assessed d/t weakness in legs. OUTSIDE RECORDS: [facility] and pertinent workup and findings are noted above in HPI. INTERNAL RECORDS: The patient's electronic medical record was reviewed. The relevant details are included in HPI above. IMPRESSION: 29 year old right-handed female with a h/o depression presenting for evaluation of generalized weakness. She has had 2 episodes of weakness/tingling in her legs and arms both occurring after an infection (first was after an episode of colitis, second after fever and 3 week episode of vomiting). The tingling is described as ascending over 7-10 days but the weakness in her legs did not come on so gradually and was more sudden. There was a suspicion of the first episode representing AIDP/GBS and so a fairly extensive workup was done at the time (in [place]) and CSF and MRI brain/C/L spine w/wo contrast done after 10 days to 2 weeks after symptom onset were both normal (see reports above in HPI). Infectious workup also did not reveal an etiology for her weakness. She says she did return to near baseline after the first episode and had returned to work before experiencing a recurrence of s/s after another infection (fever for 2 days, vomiting for 2 weeks - GI workup did not reveal a cause) with tingling again ascending to her mid calf b/l and weakness coming on less gradually. Neurologic evaluation done during this second visit and she was then sent to us for further workup and evaluation. Her first episode was concerning for AIDP but given the normal MRI L spine w/wo contrast and CSF studies done at that time argue against that diagnosis. On exam today, she appears to have a length-dependent loss of sensation and strength) in a glove and stocking distribution with absent reflexes in arms and legs (although jaw jerk and pectoral reflexes were wnl). Of note, she does endorse significant alcohol use (3 beers daily for a few months until her most recent hospitalization. We will need further workup to evaluate for causes of peripheral neuropathy in this case and will also obtain an EMG/NCS (especially since there was discrepancy in patient's reported weakness and objective exam findings). PLAN/RECOMMENDATIONS: The impression above as well as the plan as outlined below were extensively discussed with the patient (in the company of her boyfriend and daughters) who voiced understanding. All questions were answered to their stated satisfaction. 1. Will pursue the following w/u studies including those for secondary/potentially treatable underlying conditions:HbA1c, serum B12, MMA, SPEP/immunofixation as well as an EMG/NCS. 2. When available, results of the above investigations and possible further recommendations will be communicated to the patient via telephone/OfferWirehart. Patient to call office if not contacted after expected testing turnaround time. To aid with communication, patients (and primary care physicians) can sign up for Jebbit (or Alcira), which allows online appointment scheduling, transmission of labs results and chart notes, and secure email communication. To establish either account, visit [email or web address]. Bessy Sheriff MD Fellow, Neuromuscular Medicine In the service of Christel Larose MD, PhD [facility] STAFF PHYSICIAN NOTE OF PERSONAL INVOLVEMENT IN CARE: I agree with the findings, differential diagnosis, and recommendations or plan of management as outlined above. I have reviewed all pertinent history and examination findings wit Dr. Cain Sheriff, and have discussed previous investigations. I have discussed the appropriate differential diagnosis and formulated the management for the patient. I have personally interviewed the patient and confirmed relevant physical findings. I have discussed the suspected diagnosis and reviewed the plan of management with the patient, with which she is in agreement. My comments and changes have been incorporated into the above note. Of the 90 minute long appointment visit, Dr. Larose spent at least 50% of the [id number] time in counseling, explanation of diagnosis, planning of further management, and answering all questions. Christel Larose MD, PhD Director, Section of ALS and Related Disorders Staff, [facility] Bessy Sheriff MD, MD 06/12/2019 1:25 PM Signed We need further workup for your weakness. You will get some labs done today. We will also schedule you for an EMG/NCS. 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 #:[id number] HGB A1C [RTRGP1Z] Order #: [id number]. #:[id number] PROTEIN ELECTROPHORESIS W/INTERP [SQSEPG] Order #: [id number]. #:[id number] METHYLMALONIC ACID [SQMMA] Order #: [id number]. #:[id number] EMG(NEURO/NI) [20110129] Order #: [id number]: 1 IMMUNOFIXATION SCREEN, SERUM [SQIFESC] Order #: [id number] Prescriptions as of 06/12/2019 Sig: POTASSIUM CHLORIDE ER 20 MEQ * Take by mouth. ERGOCALCIFEROL (VITAMIN D2) 5* Take 1 capsule by mouth once * MIRTAZAPINE 15 MG TABLET Take 1 tablet by mouth daily * THIAMINE HCL (VITAMIN B1) 100* Take 1 tablet by mouth once d* Problem List As Of Date 06/12/2019 Noted Resolved Weakness [R53.1] INVALID FOR* More... Malnutrition of moderate degree (HCC) [E44.0] INVALID FOR* More... Paresthesias [R20.2] INVALID FOR* More... Alcohol abuse [F10.10] INVALID FOR* More... Anxiety [F41.9] INVALID FOR* Nicotine use disorder, F17.2 [F17.200] INVALID FOR* More... Vitamin D deficiency [E55.9] INVALID FOR* More... Other instructions from your clinician: We need further workup for your weakness. You will get some labs done today. We will also schedule you for an EMG/NCS. Follow-up and Disposition History Recorded Encounter Status:Closed by CHRISTEL LAROSE MD on 06/26/19 Normal [facility] Hemoglobin A1con 06-12-2019 HbA1c (Bld) [Mass fraction] 4.6 % Normal 4.3-5.6 [facility] Comment on above: Result Comment: Amer ican Diabetes Association guidelines indicate that patients with HgbA1c in the range 5.7-6.4% are at increased risk for development of diabetes, and intervention by lifestyle modification may be beneficial. HgbA1c greater or equal to 6.5% is considered diagnostic of diabetes. Performed By: #### C BCDIF, CMP #### [facility] [address] [place], [place] [address] HbA1c (Bld) [Mass fraction] 85 mg/dL Normal [facility] Comment on above: Result Comment: eAG: (Estimated average glucose) is a calculated value from HgbA1c and is self pay representative of the average blood glucose level in the last 2-3 month period. Performed By: #### C BCDIF, CMP #### [facility] [address] [place], [place] [address] Methylmalonic Acidon 019 Methylmalonic Acid 175 nmol/L Normal 79-376 [facility] Comment on above: Result Comment: This test was developed and its performance characteristics determined by [facility] [place] ([facility]). It has not been cleared or approved by the FDA. [facility] is regulated under CLIA as qualified to perform high complexity testing. This test is used for clinical purposes. It should not be regarded as investigational or for research. Performed By: #### C BCDIF, CMP #### [facility] [address] [id number] PROGRESSon 06-12-2019 PROGRESS HNO ID: [id number] Author: Christel Larose Service: ? Author Type: Physician Type: Progress Notes Filed: 06/26/2019 1:28 AM Note Text: [facility] Consult Visit Note Referring provider AND PCP - Carl Child MD [facility] [place] [address] [address]Douglas Child for an opinion regarding generalized weakness. Our final recommendations will be communicated back to the requesting physician by way of shared Medical record or letter to requesting physician via US mail. History of Present Illness: Ms. Estes is a pleasant 29 year old right-handed female with a h/o depression presenting for evaluation of generalized weakness. Symptoms first started in Jul 2018 - she was unable to provide details but her boyfriend was able to state that she got a viral illness with fever, chills, myalgias, flu like s/s that lasted a few days and possibly colitis at that time as well (per OSH records) and then followed 10 days to 2 weeks later by tingling (pins and needles sensation) in both hands (all fingertips) and feet (whole foot involved) that progressed gradually in about a week or 10 days up both legs up to her hips. This was also associated with weakness in both legs that appeared soon after the tingling had progressed up the legs as per the boyfriend. Denies saddle anesthesia and bowel/bladder incontinence at that time. No progression of s/s up her arms or hands. No difficulty holding head up or breathing or swallowing. The symptoms did not wax and wane. She sought medical help when she had a fall and then went to the PCP - she was then sent to an OSH ([place]) as she could barely walk at all at that time. The patient's boyfriend says she did not have any reflexes in her legs. A spinal tap was done (was normal about 10 days after s/s onset and per report CSF opening pressure 9, nucleated cells <1, RBC; 2, Glu 69, protein 15, meningitis panel negative.) and MRI brain w/wo contrast, MRI cervical and lumbar spine w/wo contrast were also normal (no mention is made of presence or absence of nerve root enhancement in the report and no images are available for review). Documentation of exam from that time shows that she had 2+ symmetric reflexes at biceps , brachioradialis, 1+ patellar b/l and at achilles. She also had a foot drop b/l. She denies having a foot drop prior to that episode. At that time, she was given IV fluids and pain medications and then sent to rehab - she was there for about 3 weeks and made a lot of progress where she was able to walk and strength returned to normal and she felt the numbness/tingling also reduced and felt it mostly just in her feet. It appears though that she did have some mild residual weakness and numbness in her feet since then. She was able to go back to work and function normally following that episode and stayed well with no progression or recurrence of symptoms until about 2 months ago. In March 2019 she had an episode of fever followed by intractable vomiting (denied abdominal pain, headache, neck stiffness) that lasted about 3 weeks where she could not keep anything down - fever resolved in a day or so but vomiting continued. She was taken to Dr Child who sent her to a [facility] where she was given hydration and a dissolving antiemetic which would help for a few hours but did not help resolve s/s. She was not admitted for long at that time and had no weakness. Weakness started a few days after she was hydrated - weakness was in both legs up to hips and tingling/pins and needles sensation also progressed up her legs to mid calf b/l. Denied back pain. She was so lethargic from all the vomiting that she does not know if she had weakness in her arms as well. She lost about 15-20 lb in those 3 weeks. No sick contacts. Denies bladder or bowel incontinence or saddle anesthesia but she wasn't peeing as much as she was not hydrated. She needed several treatments of IVFs during those three weeks but was not hospitalized. She would only throw up if she ate or drank anything, not when she was not eating/drinking. Then about 3 weeks later when s/s started to resolve on their own, she began to be more aware of her surroundings and realized that she could not remember things well (she could recognize people but would forget things said to her, she forgot about the first episode of weakness/tingling as well). She was then brought to the ED here - labs with hypokalemia (mild) and some e/o dehydration but no significant electrolyte abnormalities and as per the neuro exam noted here she had vibration diminished in R index finger but nowhere else, and had giveway weakness in multiple muscle groups in arms and legs. Plantar reflexes were mute, triceps 2+ and symmetric. Patellar and achilles absent b/l as per the note from that visit. UDS and serum alcohol level were negative. B12 was normal (1214). 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 She has been at rehab for about a month and has made significant progress and she is starting to walk with the help of a walker - about 60% of baseline. Labs: Vit D was 6.1 - she is on replacement now. CK was 84 Heavy metal screen was negative. 08/2018 labs IgG/albumin ratio was 0.20 (upper limit of normal 0.17) NMO Ab negative in serum OCBs not seen in CSF Lyme disease Ab CSF negative SPEP normal. Paraneoplastic panel negative in CSF Meningitis panel negative BERTHA negative HIV negative ESR 9 normal Thiamine 47 - (low) - on replacement now Copper 31 low B6 18.4 low PAST HISTORY: MEDICAL PAST MEDICAL HISTORY Diagnosis Date - Substance abuse (HCC) H/o IV heroin use 6 years ago SURGICAL PAST SURGICAL HISTORY Procedure Laterality Date - TONSILLECTOMY HX Medications: Current Outpatient Medications: potassium chloride 20 mEq TbER Take by mouth. ergocalciferol 50,000 unit capsule (VITAMIN D2, DRISDOL) Take 1 capsule by mouth once each week. Every Tuesday for one month mirtazapine (REMERON) 15 mg tablet Take 1 tablet by mouth daily at bedtime for 2 doses. thiamine (VITAMIN B1) 100 mg tablet Take 1 tablet by mouth once daily for 86 doses. No current facility-administered medications for this visit. Allergies: See updated allergies documented below. ALLERGIES No Known Allergies Social History Socioeconomic History Marital status: Single Spouse name: Not on file Number of children: Not on file Years of education: Not on file Highest education level: Not on file Occupational History Not on file Social Needs Financial resource strain: Not on file Food insecurity: Worry: Not on file Inability: Not on file Transportation needs: Medical: Not on file Non-medical: Not on file Tobacco Use Smoking status: Never Smoker Smokeless tobacco: Never Used Tobacco comment: 1/2 ppd for 10 years, quit last year. Uses Juul Substance and Sexual Activity Alcohol use: Yes Comment: none since hospitalization, prior to that she was drinking 3 beers/day for some months Drug use: Not on file Comment: IV heroin use 6 years ago, used it for <1 year. Sexual activity: Not on file Lifestyle Physical activity: Days per week: Not on file Minutes per session: Not on file Stress: Not on file Relationships Social connections: Talks on phone: Not on file Gets together: Not on file Attends adventist service: Not on file Active member of club or organization: Not on file Attends meetings of clubs or organizations: Not on file Relationship status: Not on file Intimate partner violence: Fear of current or ex partner: Not on file Emotionally abused: Not on file Physically abused: Not on file Forced sexual activity: Not on file Other Topics Concerns: Not on file Social History Narrative 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 Review of Systems Constitutional: Negative. HENT: Negative. Eyes: Negative. Respiratory: Negative. Cardiovascular: Negative. Gastrointestinal: Negative. Genitourinary: Negative. Musculoskeletal: Negative. Skin: Negative. Neurological: Positive for sensory change and weakness. Endo/Heme/Allergies: Negative. Psychiatric/Behavioral: Positive for memory loss. Vital Signs: BP 110/74 Pulse (!) 126 Resp 18 Ht 167.6 cm (5' 6 ) Wt 50.3 kg (111 lb) BMI 17.92 kg/m? General Medical Exam: General: Clinically well-appearing, comfortable, sitting in wheelchair. Eyes/ENT: see cranial nerve examination. Neck: No masses appreciated. Adequate range of motion without tenderness. Respiratory: Clear to auscultation, good air entry bilaterally. Cardiac/vascular: Regular rate and rhythm, no murmur appreciated. GI: non-distended abdomen. Rectal examination deferred. Back: Moderate range flexion and extension with no pain to palpation. Extremities: mild foot drop b/l, ?arthritis at L great toe. Skin: Skin color, texture, turgor normal. No pertinent rashes or lesions. Neurologic Exam: Mental status including: orientation to time, place, person, language, and fund of knowledge is essentially normal. CRANIAL NERVES: II: No visual field defects. Funduscopic examination deferred. III-IV-: Pupils equal round and reactive to light. Normal conjugate, extra-ocular eye movements in all directions of gaze. Mild non sustained end gaze nystagmus. No ptosis prior to or post sustained upgaze. V: Normal facial sensation. Jaw jerk is normal. VII: Normal facial symmetry and movements. No pathologic facial reflexes. VIII: Normal hearing and vestibular function. IX-X: Normal palatal movement. XI: Normal shoulder shrug and head rotation. XII: Normal tongue strength and range of motion, no deviation or fasciculation. Speech is not dysarthric. MOTOR: Mild atrophy of distal foot muscles. No fasciculations or abnormal movements. No pronator drift. No scapular winging. Tone is within normal limits except at ankle where it is reduced and distal joints/great toes could not be extended well (arthritis vs contracture). Strength/Power (MRC grade- out of 5): Neck Flexion 5 Neck Extension 5 Upper extremity power, when graded out of 5, revealed some giveway weakness with some distractibility ? Right Left shoulder abduction 5 5 shoulder adduction 5 5 shoulder internal rotation 5 5 shoulder external rotation 5 5 elbow extension 5 5 elbow flexion 5 5 forearm supination 5 5 forearm pronation 5 5 wrist extension 5 5 wrist flexion 5 5 finger extension 5 5 deep finger flexion (D2-3) 5 5 deep finger flexion (D4-5) 5 5 thumb flexion with FPL 5 5 thumb abduction with APB 5 5 finger abduction 5 5 Lower extremity strength, when reported the same way, showed:? ? Right Left hip flexion 5- 5- hip extension 5- 5- hip adduction 5- 5- hip abduction 5 5 knee flexion 5- 5- knee extension 5 5 ankle dorsiflexion 4- 4 ankle plantar flexion 5- 5- foot inversion 4+ 4+ foot eversion 4- 4- toe extension 4- 4- toe flexion 4- 4- Distal muscle groups appeared to be weaker than more proximal muscles in the foot. Could not walk or stand without support. Deep Tendon Reflexes (DTRs):?Per NINDS grading system ? Right Left Biceps 0 0 Triceps 0 0 Brachioradialis 0 0 Patellar 0 0 Achilles 0 0 Pectoralis reflexes present b/l No TFL contraction seen Vendorovich could not be elicited Could not perform foot tapping well b/l Vertical spread: No Crossed adductors: No Doe's sign: No Tromner's sign: No Plantar responses: flexor Clonus: No SENSORY: Normal to light touch b/l in arms and legs. Reduced to temperature and PP in a length-dependent distribution in legs (worst at forefoot, improved in hindfoot/ankle and leg, normal at about mid-thigh) and in hands (normal at palms/dorsum but reduced at fingers). Reduced vibration perception at great toes (nearly absent) and at ankles (10 seconds) with preserved vibration perception at knees b/l. Proprioception at great toes impaired to small excursions but not to larger excursions and is normal at ankle. Romberg's sign could not be tested as patient could not stand without support. No extinction on double simultaneous stimulation. Straight leg raising-bilaterally negative COORDINATION/GAIT: Normal finger-to- nose-finger b/l. Intact rapid alternating movements bilaterally. Gait could not be assessed d/t weakness in legs. OUTSIDE RECORDS: The patient's outside hospital records were reviewed in [facility] and pertinent workup and findings are noted above in HPI. INTERNAL RECORDS: The patient's electronic medical record was reviewed. The relevant details are included in HPI above. IMPRESSION: 29 year old right-handed female with a h/o depression presenting for evaluation of generalized weakness. She has had 2 episodes of weakness/tingling in her legs and arms both occurring after an infection (first was after an episode of colitis, second after fever and 3 week episode of vomiting). The tingling is described as ascending over 7-10 days but the weakness in her legs did not come on so gradually and was more sudden. There was a suspicion of the first episode representing AIDP/GBS and so a fairly extensive workup was done at the time (in [place]) and CSF and MRI brain/C/L spine w/wo contrast done after 10 days to 2 weeks after symptom onset were both normal (see reports above in HPI). Infectious workup also did not reveal an etiology for her weakness. She says she did return to near baseline after the first episode and had returned to work before experiencing a recurrence of s/s after another infection (fever for 2 days, vomiting for 2 weeks - GI workup did not reveal a cause) with tingling again ascending to her mid calf b/l and weakness coming on less gradually. Neurologic evaluation done during this second visit and she was then sent to us for further workup and evaluation. Her first episode was concerning for AIDP but given the normal MRI L spine w/wo contrast and CSF studies done at that time argue against that diagnosis. On exam today, she appears to have a length-dependent loss of sensation and strength) in a glove and stocking distribution with absent reflexes in arms and legs (although jaw jerk and pectoral reflexes were wnl). Of note, she does endorse significant alcohol use (3 beers daily for a few months until her most recent hospitalization. We will need further workup to evaluate for causes of peripheral neuropathy in this case and will also obtain an EMG/NCS (especially since there was discrepancy in patient's reported weakness and objective exam findings). PLAN/RECOMMENDATIONS: The impression above as well as the plan as outlined below were extensively discussed with the patient (in the company of her boyfriend and daughters) who voiced understanding. All questions were answered to their stated satisfaction. 1. Will pursue the following w/u studies including those for secondary/potentially treatable underlying conditions:HbA1c, serum B12, MMA, SPEP/immunofixation as well as an EMG/NCS. 2. When available, results of the above investigations and possible further recommendations will be communicated to the patient via telephone/OfferWirehart. Patient to call office if not contacted after expected testing turnaround time. To aid with communication, patients (and primary care physicians) can sign up for [employer] (or [employer]), which allows online appointment scheduling, transmission of labs results and chart notes, and secure email communication. To establish either account, visit [email or web address]. Bessy Sheriff MD Fellow, Neuromuscular Medicine In the service of Christel Larose MD, PhD [facility] STAFF PHYSICIAN NOTE OF PERSONAL INVOLVEMENT IN CARE: I agree with the findings, differential diagnosis, and recommendations or plan of management as outlined above. I have reviewed all pertinent history and examination findings wit Dr. Cain Sheriff, and have discussed previous investigations. I have discussed the appropriate differential diagnosis and formulated the management for the patient. I have personally interviewed the patient and confirmed relevant physical findings. I have discussed the suspected diagnosis and reviewed the plan of management with the patient, with which she is in agreement. My comments and changes have been incorporated into the above note. Of the 90 minute long appointment visit, Dr. Larose spent at least 50% of the [id number]-[id number] time in counseling, explanation of diagnosis, planning of further management, and answering all questions. Christel Larose MD, PhD Director, Section of ALS and Related Disorders Staff, Neuromuscular Center [facility] Normal [facility] Protein Electrophor.on 06-12 Albumin [Mass/Vol] 4.10 g/dL Normal 3.37-4.23 [facility] Comment on above: Performed By: #### C BCDIF, CMP #### [facility] [address] [address] Alpha 1 Globulin 0.26 gm/dL Normal 0.18-0.31 [facility] Comment on above: Performed By: #### C BCDIF, CMP #### [place] [id number] [place] [address] Alpha 2 Globulin 0.96 gm/dL Normal 0.52-0.97 [facility] Comment on above: Performed By: #### C BCDIF, CMP #### [place] [address] Beta Globulin 1.18 gm/dL Normal 0.84-1.36 [facility] Comment on above: Performed By: #### C BCDIF, CMP #### [place] [phone] Gamma Globulin 1.50 gm/dL High 0.70-1.44 [facility] Comment on above: Performed By: #### C BCDIF, CMP #### [place] [address] Interpretation SEE COMMENT Normal [facility] Comment on above: Result Comment: No d efinitive M protein is identified on protein electrophoresis. Performed By: #### C BCDIF, CMP #### [place] [address] M [place] Concentratn 0.00 gm/dL Normal 0.00 [facility] Comment on above: Performed By: #### C BCDIF, CMP #### [place] [address] Protein [Mass/Vol] N/A Normal [facility] Comment on above: Performed By: #### C BCDIF, CMP #### [place] [address] Protein [Mass/Vol] 8.0 g/dL Normal 6.0-8.4 [facility] Comment on above: Performed By: #### C BCDIF, CMP #### [facility] [address] [place], [place] [address] SPE Staff Review Reviewed by Casey Rebolledo MD ([id number]) Normal [facility] Comment on above: Performed By: #### C BCDIF, CMP #### [facility] [address] [place], [place] [address] Vitamin B12on 06-12-2019 Cobalamin (Vitamin B12) [Mass/Vol] 631 pg/mL Normal 232-1245 [facility] Comment on above: Performed By: #### C BCDIF, CMP #### [facility] [address] [place], [place] [address] CASE MANAGEMon 05-11-2019 CASE MANAGEM HNO ID: [id number] Author: Margot Briscoe (Sw) Service: Care Management Author Type: Big Data Developer Type: Care Mgt Progress Note Filed: 05/11/2019 2:11 PM Note Text: CARE MANAGEMENT DISCHARGE NOTE SERVICE DATE: 05/11/2019 SERVICE TIME: 2:08 PM LOS: 3 days Admission Date: 05/08/2019 DISCHARGE ARRANGEMENT (list agency and phone number) [facility] facility: Was an expedited discharge program used? No Provider: Margie Phone: CAREGIVER ASSESSMENT: Caregiver is ready, willing and able to meet the patient's needs as recommended by the inter-professional team? Yes Patient's transition needs and plan for meeting these needs: SNF Does the patient have an acute stroke diagnosis, or has the patient had a stroke during this admission? No HANDOFF COMMUNICATION: Referral sent via ecin. Phone number and envelope provided to patients nurse to call report. TRANSPORTATION ARRANGEMENTS: Mode of Transportation: Ambulance Transportation Agency and Phone #: Oren Schilling [phone]. Date of Trip: 05/11/19 Type of Service: BLS Non-emergency Is Patient Medicaid Pending: Yes and [place] medicaid Discussion of financial coverage occurred with Patient . Multicut Line Operator Location: Destination: Financial Care Management Responsibility: Estimated Charge: Approving Technical Testing Engineer: ADDITIONAL CONTACT RESOURCES: Patient tells me she is agreeable with discharge plan to go to SNF SIGNATURE: DOMINGUEZ Corrales PATIENT NAME: Karyn Estes DATE: May 11, 2019 TIME: 2:07 PM PAGER/CONTACT #: [phone] [facility] CONSULT PROGon 05-11-2019 CONSULT PROG HNO ID: [id number] Author: Jamie Guardado Service: Psychiatry Author Type: Physician Type: Consult Progress Note Filed: 05/11/2019 12:59 PM Note Text: PSYCHIATRY CONSULT SERVICE PROGRESS NOTE PATIENT NAME: Karyn Estes SERVICE DATE: May 11, 2019 SUBJECTIVE: Ms. Estes said she is ok, a little foggy still . She said she has felt more foggy since being in the hospital. She has been ok off of the Suboxone. She said she is waiting for her boyfriend to call her. She said she did not talk with him last night. She is a little concerned about him not coming up to see her. She said her daughters are still with her aunt. She said she is ready to transfer her to rehab and get better to get home. They are planning on [place], which is only about 10 minutes from home for her. ? We discussed she was on Suboxone for the help her with narcotic addiction she has had trouble with. She said they plan on tapering her off of this over time. She has not been on this at the hospital. OBJECTIVE: Vital Signs: 05/10/19 1618 05/10/19 1927 05/11/19 0311 05/11/19 0837 BP: 124/86 110/79 112/75 Pulse: 95 102 86 103 Resp: 18 16 16 Temp: 36.8 ?C (98.2 ?F) 36.8 ?C (98.2 ?F) 36.8 ?C (98.2 ?F) TempSrc: Oral Oral Oral SpO2: 95% 96% 98% 96% Weight: Height: PHYSICAL EXAMINATION: Muscle Tone/Strength: No rigidity, tremor, hyperreflexia, or clonus noted. Moved extremities against gravity. Neuro: Cranial nerves II-XII grossly intact. Gait/Station: Not tested; she was lying in bed. MENTAL STATUS EXAMINATION: Appearance: In hospital gown Behavior: Engaged readily. Psychomotor: No psychomotor agitation. Cognition Level of Consciousness: Awake and alert. No fluctuation in wakefulness. Orientation: Person, Place, Time and Situation Memory: still not perfect . Attention/Concentration: Able to spell world backwards Fund of Knowledge: Able to demonstrate an awareness of current events. Mood: Euthymic Affect: Mood-congruent and reactive within a normal range. Speech/Language: Appropriate tone, prosody, brianna, phonetics, and syntax Thought Form: Goal-directed. No loosening of associations. Thought Content: No delusions noted or endorsed. Perceptual disturbances: Did not appear to respond to auditory stimuli. Safety: Suicidal Ideations: No suicidal ideation, intent or plan. Homicidal Ideations: No homicidal ideation, intent or plan. Insight: Said hard now as she has a lot of things she is thinking about. Judgment: Fair MEDICATIONS: Current Facility-Administered Medications Medication Dose Route Frequency - ondansetron 4 mg tab(s) (ZOFRAN) 4 mg ORAL q 6 H PRN Or - ondansetron (PF) 4 mg injection (ZOFRAN) 4 mg INTRAVENOUS q 6 H PRN - thiamine 100 mg tab(s) (VITAMIN B1) 100 mg ORAL DAILY - mirtazapine 15 mg (REMERON) 15 mg ORAL AT BEDTIME - ergocalciferol (vitamin D2) 50,000 Units cap(s) (DRISDOL) 50,000 Units ORAL q 1 WEEK Lab Results Component Value Date/Time WBC 5.32 05/08/2019 05:25 AM RBC 3.12 (L) 05/08/2019 05:25 AM HCT 35.3 (L) 05/08/2019 05:25 AM MCV 113.1 (H) 05/08/2019 05:25 AM MCH 38.5 (H) 05/08/2019 05:25 AM MCHC 34.0 05/08/2019 05:25 AM RDWCV 13.3 05/08/2019 05:25 AM PLT 202 05/08/2019 05:25 AM NEUTP 68.1 05/07/2019 09:20 PM LYMPHP 21.0 05/07/2019 09:20 PM MONOP 10.1 05/07/2019 09:20 PM EODINP 0.5 05/07/2019 09:20 PM BASOP 0.3 05/07/2019 09:20 PM ABSNEUT 3.97 05/07/2019 09:20 PM ABSMONO 0.59 05/07/2019 09:20 PM ABSEOSIN 0.03 05/07/2019 09:20 PM ABSBASO <0.03 05/07/2019 09:20 PM GLUC 76 05/09/2019 04:04 AM NA 141 05/09/2019 04:04 AM K 3.8 05/09/2019 04:04 AM CHLOR 104 05/09/2019 04:04 AM BUN 4 (L) 05/09/2019 04:04 AM CREAT 0.50 (L) 05/09/2019 04:04 AM MG 1.8 05/09/2019 04:04 AM CO2 21 (L) 05/09/2019 04:04 AM TPROT 6.4 05/09/2019 04:04 AM ALB 3.5 (L) 05/09/2019 04:04 AM CA 9.5 05/09/2019 04:04 AM AST 53 (H) 05/09/2019 04:04 AM ALT 27 05/09/2019 04:04 AM ALKPHOS 102 05/09/2019 04:04 AM TBILI 0.4 05/09/2019 04:04 AM ASSESSMENT/FORMULATION:? MsRoland?Keith is a 29 year old female admitted to the hospital for weakness.?She said she had a similar problem a year ago but said it was not quite this bad?and resolved on it's own.? ??She said at home she drinks?what amounts to about a six pack of twelve oz. Beers about 3-4 days.?She said alcohol has been a problem for her in the past and her boyfriend has voiced concerns about her alcohol use. ? ? DIAGNOSIS: 1.?Alcohol Use Disorder 2. History of Narcotic addiction, was taking Suboxone as an outpatient. 2.?R/O Conversion Disorder, depending on what neurology finds.? RECOMMENDATIONS: A. Safety/Acute interventions recommended:?None currently, ok to discharge from a psychiatric point of view when medically stable. B. Psychiatric medication recommendations:?Continue?Remeron 15 mg at bedtime.?? C. Psychiatry will follow with you. D. Encouraged her to get outpatient substance abuse follow up besides just taking Suboxone. ? ? Jamie Guardado MD ? [facility] CONSULT PROGon 05-10-2019 CONSULT PROG HNO ID: [id number] Author: Jamie Guardado Service: Psychiatry Author Type: Physician Type: Consult Progress Note Filed: 05/10/2019 1:19 PM Note Text: PSYCHIATRY CONSULT SERVICE PROGRESS NOTE PATIENT NAME: Karyn Estes SERVICE DATE: May 10, 2019 SUBJECTIVE: Ms. Estes she said she still feels confused, both about how she is doing and what the plan is. She said her boyfriend did not get up to see her yesterday. She talked to him but said not a lot was discussed with him. She said they plan is to transfer her to rehab and she thinks there are some planned studies that will be done as an outpatient. She thinks it will be in [place] which is only about 10 minutes from home. She thinks her daughters are doing ok. We discussed she was on Suboxone for the help her with narcotic addiction she has had trouble with. She said they plan on tapering her off of this over time. ? OBJECTIVE: Vital Signs: 05/09/19 1617 05/09/19 1956 05/10/19 0354 05/10/19 0819 BP: 112/84 109/75 119/86 123/82 Pulse: 86 65 94 (!) 129 Resp: 17 16 16 17 Temp: 36.8 ?C (98.2 ?F) 36.8 ?C (98.2 ?F) 36.7 ?C (98.1 ?F) 36.5 ?C (97.7 ?F) TempSrc: Oral Oral Oral Oral SpO2: 99% 99% 97% 96% Weight: Height: MENTAL STATUS EXAMINATION: Appearance: In hospital gown Behavior: Engaged readily. Psychomotor: No psychomotor agitation. Cognition Level of Consciousness: Awake and alert. No fluctuation in wakefulness. Orientation: Person, Place, Time and Situation Memory: still foggy Attention/Concentration: Able to spell world backwards Fund of Knowledge: Able to demonstrate an awareness of current events. Mood: Euthymic Affect: Mood-congruent and reactive within a normal range. Speech/Language: Appropriate tone, prosody, brianna, phonetics, and syntax Thought Form: Goal-directed. No loosening of associations. Thought Content: No delusions noted or endorsed. Perceptual disturbances: Did not appear to respond to auditory stimuli. Safety: Suicidal Ideations: No suicidal ideation, intent or plan. Homicidal Ideations: No homicidal ideation, intent or plan. Insight: Fair Judgment: Fair MEDICATIONS: Current Facility-Administered Medications Medication Dose Route Frequency - ondansetron 4 mg tab(s) (ZOFRAN) 4 mg ORAL q 6 H PRN Or - ondansetron (PF) 4 mg injection (ZOFRAN) 4 mg INTRAVENOUS q 6 H PRN - thiamine 100 mg tab(s) (VITAMIN B1) 100 mg ORAL DAILY - mirtazapine 15 mg (REMERON) 15 mg ORAL AT BEDTIME - ergocalciferol (vitamin D2) 50,000 Units cap(s) (DRISDOL) 50,000 Units ORAL q 1 WEEK Lab Results Component Value Date/Time WBC 5.32 05/08/2019 05:25 AM RBC 3.12 (L) 05/08/2019 05:25 AM HCT 35.3 (L) 05/08/2019 05:25 AM MCV 113.1 (H) 05/08/2019 05:25 AM MCH 38.5 (H) 05/08/2019 05:25 AM MCHC 34.0 05/08/2019 05:25 AM RDWCV 13.3 05/08/2019 05:25 AM PLT 202 05/08/2019 05:25 AM NEUTP 68.1 05/07/2019 09:20 PM LYMPHP 21.0 05/07/2019 09:20 PM MONOP 10.1 05/07/2019 09:20 PM EODINP 0.5 05/07/2019 09:20 PM BASOP 0.3 05/07/2019 09:20 PM ABSNEUT 3.97 05/07/2019 09:20 PM ABSMONO 0.59 05/07/2019 09:20 PM ABSEOSIN 0.03 05/07/2019 09:20 PM ABSBASO <0.03 05/07/2019 09:20 PM GLUC 76 05/09/2019 04:04 AM NA 141 05/09/2019 04:04 AM K 3.8 05/09/2019 04:04 AM CHLOR 104 05/09/2019 04:04 AM BUN 4 (L) 05/09/2019 04:04 AM CREAT 0.50 (L) 05/09/2019 04:04 AM MG 1.8 05/09/2019 04:04 AM CO2 21 (L) 05/09/2019 04:04 AM TPROT 6.4 05/09/2019 04:04 AM ALB 3.5 (L) 05/09/2019 04:04 AM CA 9.5 05/09/2019 04:04 AM AST 53 (H) 05/09/2019 04:04 AM ALT 27 05/09/2019 04:04 AM ALKPHOS 102 05/09/2019 04:04 AM TBILI 0.4 05/09/2019 04:04 AM ASSESSMENT/FORMULATION:? is a 29 year old female admitted to the hospital for weakness.?She said she had a similar problem a year ago but said it was not quite this bad and resolved on it's own. She said she has not had any withdrawals since being in the hospital. ? ??She drinks what amounts to about a six pack of twelve oz. Beers about 3-4 days a week at home. She said alcohol has been a problem for her in the past. ? ? DIAGNOSIS: 1.?Alcohol Use Disorder 2. History of Narcotic addiction, was taking Suboxone as an outpatient. 2. R/O Conversion Disorder, depending on what neurology finds. ? ? ? RECOMMENDATIONS: A. Safety/Acute interventions recommended:?None currently, ok to discharge from a psychiatric point of view when medically stable. B. Psychiatric medication recommendations: Continue Remeron 15 mg at bedtime. We also looked at her PDMP report and discussed the Suboxone. She said he has kristin ok with being off of it in the hospital. C. Psychiatry will follow with you. Would ask case management to discuss treatment options with her and help with outpatient follow up.?? D. Encouraged her to get outpatient substance abuse follow up besides just taking Suboxone. ? ? Jamie Guardado MD [facility] CONSULT PROG HNO ID: [id number] Author: Casey Cheung Service: Neurology General Author Type: Physician Type: Consult Progress Note Filed: 05/10/2019 8:00 AM Note Text: On thiamine, Ms. Estes still feels confused. She has not been up to the bathroom and cannot say how her balance is. On exam, her pronounced end-gaze nystagmus has cleared. On getting her to her feet with the assistance of myself and her nurse, she is unsteady, but not as unsteady as 2 days ago. I advised her to take thiamine as an outpatient (as B1, B complex, or mutlivitamin). I advised continued follow up with psychiatry. I explained EMG to her and told her to be sure she was scheduled for it when she is discharged. She will need outpatient rehab after discharge for her gait. I will sign off for neurology but will be available as needed. Casey Cheung MD [facility] NURSING PROGon 05-10-2019 NURSING PROG HNO ID: [id number] Author: Caron GallegosRn) KELECHI Carmen Service: Nursing Author Type: Registered Nurse Type: Nursing Progress Note Filed: 05/10/2019 8:40 AM Note Text: Nursing Progress Note Patient Name: Karyn Estes Patient [facility]: [facility] Daily Note: Heavy two person assist to bedside commode, patient unsteady during transfer to bedside commode. Bath given patient then heavy two person transfer to chair, patient assisted with ordering breakfast. This note was completed by: Caron Carmen RN [facility] PROGRESSon 05-10-2019 PROGRESS HNO ID: [id number] Author: Perla Whelan Service: Hospital Medicine Author Type: Physician Type: Progress Notes Filed: 05/10/2019 3:46 PM Note Text: SERVICE DATE: 05/10/2019 SERVICE TIME: 3:45 PM HOSPITAL MEDICINE PROGRESS NOTE NIGHT AND WEEKEND COVERAGE: Days: [phone], please page me for patient issues. Nights: [phone], please page [facility] Hospitalist Night coverage pager [phone] HPI 29 years old who presented to the ED with peripheral paresthesias. SUBJECTIVE Interval Events: feels about the same today. Still requiring 2 assist for transfers OBJECTIVE BP 123/82 Pulse 129 Temp (Src) 97.7 (Oral) Resp 17 Ht 5' 6 (1.68m) Wt 114 lb 3.2 oz (51.8kg) SpO2 96% BMI 18.44 kg/(m2). O2 Therapy: Room Air Physical Exam Performed: Gen: NAD, AANDO HEENT: MMM Heart: RRR Lungs: CTAB. No accessory muscle use Abd: soft, NT, ND. NABS. No masses Ext: no edema Skin: no rashes Neuro: Face symmetric. Moves all four extremities without gross deficits. Decreased sensation to light touch both lower extremities and hands/forearms. Strength 5/5 both UEs and LEs. Lines, Drains, and Airways Line Peripheral 05/08/19 0110 Admission to Hospital Left Forearm 20 Gauge 2 days Reviewed lines, drains, AND airways. 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 Neurology consult appreciated. DDx Wernicke's encephalopathy vs Charcot Aure Tooth vs conversion disorder vs anxiety Continue thiamine B12 level normal. MRI brain rules out thalamic/mamillary body hemorrhage. EMG as outpatient Psych consult appreciated. Zyprexa changed to Remeron. Alcohol abuse 05/08/2019 - Present Current Assessment AND Plan Assessment: Chronic No signs of withdrawal PLAN: Social work involvement appreciated. Patient to pursue outpatient rehab. Malnutrition of moderate degree (HCC) 05/08/2019 - Present Current Assessment AND Plan Assessment: Chronic Body mass index is 18.43 kg/m?. PLAN: Lifestyle modification Nicotine use disorder, F17.2 05/09/2019 - Present Current Assessment AND Plan Assessment: chronic PLAN: Advised cessation Vitamin D deficiency 05/09/2019 - Present Current Assessment AND Plan Assessment: 25-OH vit D level 6.1 PLAN: Started supplementation Medication and Non-Pharmacologic VTE Prophylaxis/Anticoagulants 05/08/19 0145 pneumatic compression stockings (nh,oh) VTE Prophylaxis: VTE prophylaxis appropriate Plan of care discussed with: Patient, Care Management and RN SIGNATURE: Perla Whelan DO PATIENT NAME: Karyn Estes DATE: May 10, 2019 TIME: 3:45 PM PAGER/CONTACT #: [phone] [facility] THERAPY NTon 05-10-2019 THERAPY NT HNO ID: [id number] Author: Shaina (Ot/L) Flowers Service: Occupational Therapy Author Type: Occupational Therapist Type: Therapy (PT/OT/Speech/Resp) Filed: 05/10/2019 11:11 AM Note Text: Occupational Therapy Evaluation SERVICE DATE: 05/10/2019 SERVICE TIME: 954 ROOM: [place] [id number] Recommended Discharge Disposition: Acute Rehab Justification For Post Acute Needs: Anticipate patient will tolerate 3 hours of daily therapy at the time of admission to post-acute setting;Good premorbid functional status;Living the community premorbidly;Willing to participate;Good family support Anticipated Discharge Needs: Physical Assist at Home;Undetermined Physical Assist at Home for: Transfers;Ambulation;Clean ing;Laundry;Meals;Medicati on Management;Stairs;Safety;S elf Care;Shopping;Transportati on;Finances Recommended Discharge Equipment: To Be Determined OT Recommendations to Nursing: Bedside Commode for Toileting;OOB for meals;With assist of 2 people Equipment: Wheeled Walker(and gait belt) OT 6 Clicks Score: 16 Precautions/Activity Restrictions: Fall Risk Precaution/Activity Restriction Comments: 2 assists required for safe transfers ASSESSMENT: Patient presents with impaired balance, strength, activity tolerance, ADLs and functional transfers/mobility. Pt normally independent, living with her boyfriend and 2 small children at home. Pt admitted for weakness, and pt has been having a functional decline for the past few weeks CAT SITTER. Today, pt very ataxic and uncoordinated with all movements. Pt also with impaired FMC and weakness in bilateral UE's (objective measurements listed below). Pt needed significant assist with all ADLs and functional transfers/mobility with use of wheeled walker and gait belt. Pt also with cognitive deficits. Pt scored an 11 on the Short Blessed Test (A score of 9-19 represents moderate cognitive impairment). Pt scored a 23 on the MoCA (A score of 26 or above is considered normal). Pt recognizes that she has cognitive issues, stating, I've been having a hard time remembering things. Pt not safe to go home at this point and functioning well below her baseline. Pt would benefit from continued, daily, intense OT in Acute Rehab setting upon DC to increase independence. Pt motivated to get back to her PLOF. Patient Disposition at Start of Session: Supine in Bed;Call Gray in Reach;Bed Alarm Patient Disposition at End of Session: Supine in Bed;Call Gray in Reach;Bed Alarm Tolerated Full Session Occupational Therapy Problem List: Cognitive Deficit;Safety Deficits;Impaired Self Care;Decreased Activity Tolerance;Functional Mobility Impairment;Decreased Strength;Balance Impaired;Motor Planning Difficulties;Impaired Fine Motor Skills Patient /Caregiver Goals: Care For Self Goals for Plan of Care: Grooming with: Contact Guard Assistance Upper Body Bathing with: Contact Guard Assistance Upper Body Dressing with: Contact Guard Assistance Lower Body Bathing with: Minimal Assistance Lower Body Dressing with: Minimal Assistance Toilet Hygiene with: Minimal Assistance Chair Transfer with: Minimal Assistance Toilet Transfer with: Minimal Assistance Rehab Potential: Good PLAN: Treatment Frequency (times per week): 3 Current admission Treatment Interventions: Education;Self Care / Home Management;Energy Conservation Training;Joint Mobility;Strengthening;Fun ctional Mobility Training;Balance Training;Neuromuscular Re-education Plan of Care developed with: Patient TREATMENT INTERVENTIONS: Therapy Diagnosis: Decreased activities of daily living (ADL);Muscle Weakness (generalized);Ataxic gait;General symptoms and signs-other;Lack of coordination-other Interventions Provided: Evaluation;Therapeutic Activity (55018) $ Evaluation-Moderate (32834) Billed Units: 1 unit Therapeutic Activity (84819) Treatment Minutes: 25 2 units Skilled Intervention(s): Instructed patient in supine to sit pushing with upper extremities to sit up Instructed patient in sit to supine using safe, effective technique Instruction in sit to stand technique with proper hand placement and body positioning at edge of bed/chair (x 2) Instruction in stand to sit technique with lower extremities touching chair/bed and reaching back for surface (x 2) Pt completed functional mobility with wheeled walker. Cues for hand placement, safety and sequencing. Education provided for role of Occupational Therapy including POC and discharge planning. Education in importance of functional mobility and transfers and participation in ADL activities for increased independence for safe discharge. Pt. Verbalized understanding. ?? Education provided to call for assistance when needing to get up with call gray and phone within patients reach. Pt. Verbalized understanding. Evp Managing Director Strength: Right: 17# Left: 16# Pinch Strength: Right: 6# Left: 4# 9 Hole Peg Test: Right: 55 seconds Left: 60 seconds (8 pegs only; one fell on floor and couldn't find till later in session) Total Timed Code Treatment Minutes: 25 Total Treatment Time (minutes): 50 SUBJECTIVE: Current Hospital Course: Chart reviewed; pt admitted with 3 week history of progressive weakness. Reason for Occupational Therapy Consult: safety assessment Relevant Past Medical History: paresthesias, anxiety, alcohol abuse, malnutrition, nicotine use d/o. Patient Report: I've been having a hard time remembering things. Pt pleasant, agreeable to participate in session. Home Environment Patient Lives With: Significant Other(boyfriend and 2 kids -10 and 11 y/o) Assistance Available: (boyfriend works during the day) Entry To Home: No Stairs Number Of Stairs To Bed/Bath: 0 Tub/Shower Type: tub with shower - hand held shower - shower chair Laundry: first floor - pt completes Equipment Owned: Wheeled Walker;Hand Held Shower;Shower Chair Prior Functional Level: History of Falls;Required Assistance(reports 2 falls in past 6 months) Assistance Required With: Cleaning;Laundry;Meals;Sta irs;Safety;Transportation; Shopping Prior Functional Level Comments: pt with recent decline in function ( approx 1 week)- requiring increased assist for mobility.(had similiar episode in the past) OBJECTIVE: Cognition/Communication Deficits Orientation Deficits: (alert and orientedx 3) Responsiveness: Alert;Awake Follows Commands: 2-step Commands Memory Deficits: Short Term Executive Function Deficits: Safety Awareness;Problem Solving;Insight to Deficits;Judgement;Sequenc ing;Motor Planning Sequencing Deficit: Moderate impairment Judgement Deficit: Moderate impairment Insight to Deficits: Moderate impairment Problem Solving Deficit: Moderate impairment Motor Planning Deficit: Moderate impairment Safety Awareness Deficit: Moderate impairment Cognitive Clinical Tests and Screens: Short Blessed Test;MoCA Visuospatial/executive: 4 Namin Digits: 2 Letters: 1 Subtraction: 3 Repetition: 2 Fluency: 1 Abstraction: 1 Delayed Recall: 0 Orientation: 5 Points For Educational Level: 1 MoCA Total Score (out of 30): 23 1. What Year Is It Now?: Correct 2. What Month Is It Now?: Correct 3. What Time is it? (WIthin 1 hour): Incorrect 4. Count Aloud Backwards 20 to 1 (Errors): 0 5. Months of the Year in Reverse Order (Errors): 0 6. Memory Phrase (Errors) : 4 Short Blessed Final Score: 11 CURRENT FUNCTIONAL STATUS: Current Activities of Daily Living Assist Level Feeding Set Up Grooming Minimal Assistance Bathing Upper Body Minimal Assistance Bathing Lower Body Moderate Assistance Dressing Upper Body Minimal Assistance Dressing Lower Body Moderate Assistance Toileting Moderate Assistance Instrumental Activities of Daily Living Assist Level Meal/Beverage Prep Light Cleaning Laundry Medication Management with Strategies Functional Mobility Assist Level Rolling Supine to Sit Stand By Assistance Sit to Supine Stand By Assistance Scooting Sit to Stand Moderate Assistance Stand to Sit Moderate Assistance Bed to Chair Toilet/Commode Functional Mobility Moderate Assistance Wheeled Walker Please see discipline specific clinical documentation flowsheet for complete details for this therapy evaluation/treatment. SIGNATURE: Shaina Flowers OT/Myla PATIENT NAME: Karyn Estes DATE: May 10, 2019 TIME: 11:01 AM [facility] ALLIED HEALTHon 05-09-2019 ALLIED HEALTH HNO ID: [id number] Author: Yves Best (Rt) Service: ? Author Type: Lei Maker Type: Allied Health Filed: 05/08/2019 11:00 PM Note Text: Radiology Service Progress Note PATIENT NAME: Karyn Estes DATE OF SERVICE: May 08, 2019 TIME: 10:44 PM PATIENT IDENTITY VERIFICATION COMPLETED USING TWO (2) METHODS: Patient confirmed name verbally, ID Band and Date of . PATIENT GENDER DATA: Female. status: : No status: NO. PATIENT RELEVANT IMPLANT DATA REVIEWED: Yes RADIOLOGY DEPARTMENT: MR; Exam(s) Completed: Head: Routine Brain PERIPHERAL IV DATA: Inpatient: see LDA documentation SIGNED BY: RT Yves Best Lisa Fide May 08, 2019 10:44 PM [facility] CASE MANAGEMon 05-09-2019 CASE MANAGEM HNO ID: [id number] Author: Margot Briscoe (Sw) Service: Care Management Author Type: Big Data Developer Type: Care Mgt Progress Note Filed: 05/09/2019 2:59 PM Note Text: CARE MANAGEMENT PROGRESS NOTE SERVICE DATE: 05/09/2019 SERVICE TIME: 2:58 PM LOS: 1 day FREEDOM OF CHOICE GIVEN: Yes Karyn estes Financial Disclosure Provided The patient and/or family has been given the Provider List: Yes Provider List: Custodial Facility Ms. Estes tells me she is agreeable with discharge plan to SNF for short term rehab stay. [facility] closer to her home in [facility] SIGNATURE: DOMINGUEZ Corrales PATIENT NAME: Karyn Estes DATE: May 09, 2019 TIME: 2:58 PM PAGER/CONTACT #: [phone] [facility] CASE MANAGEM HNO ID: [id number] Author: Margot Briscoe (Sw) Service: Care Management Author Type: Big Data Developer Type: Care Mgt Progress Note Filed: 05/09/2019 11:15 AM Note Text: CARE MANAGEMENT PROGRESS NOTE SERVICE DATE: 05/09/2019 SERVICE TIME: LOS: 1 day ALCOHOL USE/ABUSE CAGE ASSESSMENT Two or More Affirmative Responses Suggest a Client is a Problem Drinker. - Have you felt the need to cut down on your drinking? Yes - Do you feel annoyed by people complaining about your drinking? Yes - Do you ever feel guilty about your drinking? Yes - Do you ever drink an eye-engineering program manager in the morning to relieve shakes? Yes-has in the past Met with Ms. Estes this date. She tells me she believes she has a substance abuse problem. Initially she declined community resources available to her in her area of [facility]. However after discussing CAGE assessment she stated she would consider an out patient program, but is undecided at this time. Stated she has gone to [facility] for treatment in the past and would consider going again. She tells me she is aware of, but not currently active with AA. States she has not drank in a while and does not feel she needs any detox treatment. She tells me she currently does not have an AA sponsor, but has in the past. She tells me she has a very supportive family. Informed patient that the social service worker remains available. She also tells me she will consider treatment and is aware of the [employer] phone number on the back of her card to contact for further available services under her [employer] insurance as needed. Community resources for substance abuse provided to patient. SIGNATURE: DOMINGUEZ Corrales PATIENT NAME: Karyn Estes DATE: May 09, 2019 TIME: 11:05 AM PAGER/CONTACT #: [phone] [facility] CONSULT PROGon 05-09-2019 CONSULT PROG HNO ID: [id number] Author: Jamie Guardado Service: Psychiatry Author Type: Physician Type: Consult Progress Note Filed: 05/09/2019 2:39 PM Note Text: PSYCHIATRY CONSULT SERVICE PROGRESS NOTE PATIENT NAME: Karyn Estes SERVICE DATE: May 09, 2019 SUBJECTIVE: Ms. Estes said she feels foggy today. She said she is overwhelmed with all that is going on. She talks about concerns about how things will t rail turner. She could tell me the days of the week and months of the year forwards and backwards. She said she thought her boyfriend would come to visit her yesterday and he did not. She thinks he will come today. She said her aunt is watching her children. She said she was never to him and that her children's father is really not involved in their lives. That did not sound like a healthy relationship. She talked about her current boyfriend being less likely to leave her if she was not well. She talked about her mother committed suicide in 2008 and she was the one who found her. She was tearful when she discussed this. OBJECTIVE: Vital Signs: 05/08/19 1955 05/09/19 0009 05/09/19 0409 05/09/19 0729 BP: 100/73 117/78 119/85 129/86 Pulse: 83 63 69 90 Resp: 18 16 16 17 Temp: 36.7 ?C (98.1 ?F) 36.8 ?C (98.2 ?F) 36.9 ?C (98.4 ?F) 36.8 ?C (98.2 ?F) TempSrc: Oral Oral Oral Oral SpO2: 99% 97% 96% 98% Weight: Height: MENTAL STATUS EXAMINATION: Appearance: In hospital gown Behavior: Engaged readily. Psychomotor: No psychomotor agitation. Cognition Level of Consciousness: Awake and alert. No fluctuation in wakefulness. Orientation: Person, Place, Time and Situation Memory: foggy Attention/Concentration: Able to spell world backwards Fund of Knowledge: Unble to demonstrate an awareness of current events. Mood: sad Affect: Mood-congruent and reactive within a normal range. Speech/Language: Appropriate tone, prosody, brianna, phonetics, and syntax Thought Form: Goal-directed. No loosening of associations. Thought Content: No delusions noted or endorsed. Perceptual disturbances: Did not appear to respond to auditory stimuli. Safety: Suicidal Ideations: No suicidal ideation, intent or plan. Homicidal Ideations: No homicidal ideation, intent or plan. Insight: Limited Judgment: Fair MEDICATIONS: Current Facility-Administered Medications Medication Dose Route Frequency - ondansetron 4 mg tab(s) (ZOFRAN) 4 mg ORAL q 6 H PRN Or - ondansetron (PF) 4 mg injection (ZOFRAN) 4 mg INTRAVENOUS q 6 H PRN - thiamine 100 mg tab(s) (VITAMIN B1) 100 mg ORAL DAILY - mirtazapine 15 mg (REMERON) 15 mg ORAL AT BEDTIME Lab Results Component Value Date/Time WBC 5.32 05/08/2019 05:25 AM RBC 3.12 (L) 05/08/2019 05:25 AM HCT 35.3 (L) 05/08/2019 05:25 AM MCV 113.1 (H) 05/08/2019 05:25 AM MCH 38.5 (H) 05/08/2019 05:25 AM MCHC 34.0 05/08/2019 05:25 AM RDWCV 13.3 05/08/2019 05:25 AM PLT 202 05/08/2019 05:25 AM NEUTP 68.1 05/07/2019 09:20 PM LYMPHP 21.0 05/07/2019 09:20 PM MONOP 10.1 05/07/2019 09:20 PM EODINP 0.5 05/07/2019 09:20 PM BASOP 0.3 05/07/2019 09:20 PM ABSNEUT 3.97 05/07/2019 09:20 PM ABSMONO 0.59 05/07/2019 09:20 PM ABSEOSIN 0.03 05/07/2019 09:20 PM ABSBASO <0.03 05/07/2019 09:20 PM GLUC 76 05/09/2019 04:04 AM NA 141 05/09/2019 04:04 AM K 3.8 05/09/2019 04:04 AM CHLOR 104 05/09/2019 04:04 AM BUN 4 (L) 05/09/2019 04:04 AM CREAT 0.50 (L) 05/09/2019 04:04 AM MG 1.8 05/09/2019 04:04 AM CO2 21 (L) 05/09/2019 04:04 AM TPROT 6.4 05/09/2019 04:04 AM ALB 3.5 (L) 05/09/2019 04:04 AM CA 9.5 05/09/2019 04:04 AM AST 53 (H) 05/09/2019 04:04 AM ALT 27 05/09/2019 04:04 AM ALKPHOS 102 05/09/2019 04:04 AM TBILI 0.4 05/09/2019 04:04 AM ASSESSMENT/FORMULATION: Ms. Estes is a 29 year old female admitted to the hospital for weakness. She said her legs started to give out of her a couple of days ago. She said she had a similar problem a year ago but said it was not quite this bad and resolved on it's own. She said she has not had any withdrawals since being in the hospital. She drinks what amounts to about a six pack of twelve oz. Beers about 3-4 days a week at home. She said alcohol has been a problem for her in the past. ? ? DIAGNOSIS: 1. Alcohol Use Disorder 2. R/O Conversion Disorder, depending on what neurology finds. ? ? ? RECOMMENDATIONS: A. Safety/Acute interventions recommended: None currently B. Psychiatric medication recommendations: Continue Remeron 15 mg at bedtime. D. Psychiatry will follow with you. Would ask case management to discuss treatment options with her. ? Jamie Guardado MD Normal [facility] Comp Metabolic Panelon 05-09 Albumin [Mass/Vol] 3.5 g/dL Low 3.9-4.9 [facility] ALP [Catalytic activity/Vol] 102 U/L Normal 34-123 [facility] ALT [Catalytic activity/Vol] 27 U/L Normal 7-38 [facility] Anion gap [Moles/Vol] 16 mmol/L Normal 9-18 [facility] AST [Catalytic activity/Vol] 53 U/L High 13-35 [facility] Bilirubin [Mass/Vol] 0.4 mg/dL Normal 0.2-1.3 [facility] Calcium [Mass/Vol] 9.5 mg/dL Normal 8.5-10.2 [facility] Chloride [Moles/Vol] 104 mmol/L Normal 97-105 [facility] CO2 [Moles/Vol] 21 mmol/L Low 22-30 [facility] Creatinine [Mass/Vol] 0.50 mg/dL Low 0.58-0.96 [facility] eGFR- Amer. >60 Normal [facility] GFR/1.73 sq M predicted among non-blacks MDRD (S/P/Bld) [Vol rate/Area] mL/min/{1.73_m2} Normal [facility] Comment on above: Result Comment: eGFR (Estimated GFR) Units of measure: mL/min/1.73 meters squared eGFR is derived from the reexpressed MDRD Study equation using the following parameters: serum creatinine, age, gender and race. The creatinine assay has been calibrated to be traceable to IDMS. An eGFR <60 mL/min/1.73m2 for >3 months is consistent with chronic kidney disease. Refer to KDOQI guidelines for clinical interpretation. In patients with unstable renal function, e.g. those with acute kidney injury, the eGFR may not accurately reflect actual GFR. Glucose [Mass/Vol] 76 mg/dL Normal 74-99 [facility] Comment on above: Result Comment: The [place] [employer] (ADA) provides guidance for cutoff values for fasting glucose and random glucose. The ADA defines fasting as no caloric intake for at least 8 hours. Fasting plasma glucose results between 100 to 125 mg/dL indicate increased risk for diabetes (prediabetes). Fasting plasma glucose results greater than or equal to 126 mg/dL meet the criteria for diagnosis of diabetes. In the absence of unequivocal hyperglycemia, results should be confirmed by repeat testing. In a patient with classic symptoms of hyperglycemia or hyperglycemic crisis, random plasma glucose results greater than or equal to 200 mg/dL meet the criteria for diagnosis of diabetes. Reference: Standards of Medical Care in Diabetes 2016, [place] [employer] Association. Diabetes Care. 2016.39(Suppl 1). Potassium [Moles/Vol] 3.8 mmol/L Normal 3.7-5.1 [facility] Protein [Mass/Vol] 6.4 g/dL Normal 6.3-8.0 [facility] Sodium [Moles/Vol] 141 mmol/L Normal 136-144 [facility] Urea nitrogen [Mass/Vol] 4 mg/dL Low 7-21 [facility] MRI BRAIN WO/W IVCONon 05-09 MRI BRAIN WO/W IVCON * * *Final Report* * * DATE OF EXAM: May 08 2019 11:05PM [facility] 0295 - MRI BRAIN WO/W IVCON / PROCEDURE REASON: Vertigo * * * * Physician Interpretation * * * * EXAMINATION: MRI BRAIN WO/W IVCON HISTORY: Vertigo Rule out thalamic or mamillary body hemorrhage TECHNIQUE: Head MRI without and with intravenous contrast. MQ: [id number] MR contrast: Dotarem MR contrast volume (ml): 10 MR contrast route of administration: Intravenous COMPARISON: None. RESULT: Acute change: There is no acute infarction. Intracranial hemorrhage: None, including no hemorrhage in the thalami or mamillary bodies. Mass lesion: None. Enhancement: There is no abnormal enhancement. Chronic change: There is minimal nonspecific cerebral white matter change. Brain volume: Within normal limits. Ventricles: Within normal limits. Vasculature: The major intracranial arterial flow voids appear intact. Other: The extracranial structures are within normal limits. Within the limits of this examination, the vestibular systems appear normal. The globes and orbits appear normal. IMPRESSION: 1. No abnormality to explain the reported vertigo, including no infarction or intracranial mass lesion. 2. No intracranial hemorrhage, and normal appearance of the thalami and medullary bodies. Hide Or Skin Buffer: TAIWO Transcribe Date/Time: May 08 2019 11:29P Dictated by : VALENTINA MCGRATH MD This examination was interpreted and the report reviewed and electronically signed by: VALENTINA MCGRATH MD on May 08 2019 11:32PM EST [id number] Normal [facility] Magnesiumon 05-09-2019 Magnesium [Mass/Vol] 1.8 mg/dL Normal 1.7-2.3 [facility] PLAN OF CAREon 05-09-2019 PLAN OF CARE HNO ID: [id number] Author: Margot Briscoe (Sw) Service: Care Management Author Type: Big Data Developer Type: Plan of Care Filed: 05/09/2019 9:51 AM Note Text: MULTIDISCIPLINARY ROUNDS SERVICE DATE: 05/09/2019 ADMISSION DATE: 05/08/2019 SERVICE TIME: 9:49 AM ANTICIPATED D/C DATE: Problem List: ACTIVE PROBLEM LIST Weakness Malnutrition of Moderate Degree (Hcc) Paresthesias Alcohol Abuse Anxiety Attendees Present at Rounds: Nurse Technical Testing Engineer/Hat Steamer Nurse Technical Testing Engineer: Big Data Developer: Staff Nurse: Needs Discussed on Rounds: Mobility Psycho/Social Plan of Care Anticipated Discharge Disposition: Home/Self Care Last Vitals: BP 129/86 Pulse 90 Temp (Src) 98.2 (Oral) Resp 17 Ht 5' 6 (1.68m) Wt 114 lb 3.2 oz (51.8kg) SpO2 98% BMI 18.44 kg/(m2). O2 Therapy: Room Air Awaiting PT/OT evaluations Nursing: Mobility Intervention(s) Plan: Advance Mobility Mobility Patient/Family Goals: Demonstrates ability to complete transfers with least level of assist. Mobility Goal Target Achievement Date: 05/09/19 Neurological Deficit Intervention(s) Plan: Monitor Neurological Changes and Report Immediately Neurological Deficit Goals/Outcome: Patient Demonstrates Baseline or Optimal Neurological Functioning Neurology Goal Target Achievement Date: 05/09/19 DOCUMENTED BY: DOMINGUEZ Corrales PATIENT NAME: Karyn Estes DATE: May 09, 2019 TIME: 9:49 AM CSN: [id number] [facility] PROGRESSon 05-09-2019 PROGRESS HNO ID: [id number] Author: Perla Whelan Service: Hospital Medicine Author Type: Physician Type: Progress Notes Filed: 05/09/2019 3:31 PM Note Text: SERVICE DATE: 05/09/2019 SERVICE TIME: 3:29 PM HOSPITAL MEDICINE PROGRESS NOTE NIGHT AND WEEKEND COVERAGE: Days: [phone], please page me for patient issues. Nights: [phone], please page [facility] Hospitalist Night coverage pager [phone] HPI 29 years old who presented to the ED with peripheral paresthesias. SUBJECTIVE Interval Events: tired; cloudy thinking. No pain. Worked with PT today. OBJECTIVE BP 129/86 Pulse 90 Temp (Src) 98.2 (Oral) Resp 17 Ht 5' 6 (1.68m) Wt 114 lb 3.2 oz (51.8kg) SpO2 98% BMI 18.44 kg/(m2). O2 Therapy: Room Air Physical Exam Performed: Gen: NAD, AANDO HEENT: MMM Heart: RRR Lungs: CTAB. No accessory muscle use Abd: soft, NT, ND. NABS. No masses Ext: no edema Skin: no rashes Neuro: Face symmetric. Moves all four extremities without gross deficits. Decreased sensation to light touch both lower extremities and hands/forearms. Strength 5/5 both UEs and LEs. Lines, Drains, and Airways Line Peripheral 05/08/19 0110 Admission to Hospital Left Forearm 20 Gauge 1 day Reviewed lines, drains, AND airways. 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 Neurology consult appreciated. DDx Wernicke's encephalopathy vs Charcot Aure Tooth vs conversion disorder vs anxiety Continue thiamine B12 level normal. MRI brain rules out thalamic/mamillary body hemorrhage. EMG as outpatient Psych consult appreciated. Zyprexa changed to Remeron. Alcohol abuse 05/08/2019 - Present Current Assessment AND Plan Assessment: Chronic No signs of withdrawal PLAN: Social work involvement appreciated. Patient to pursue outpatient rehab. Malnutrition of moderate degree (HCC) 05/08/2019 - Present Current Assessment AND Plan Assessment: Chronic Body mass index is 18.43 kg/m?. PLAN: Lifestyle modification Nicotine use disorder, F17.2 05/09/2019 - Present Current Assessment AND Plan Assessment: chronic PLAN: Advised cessation Vitamin D deficiency 05/09/2019 - Present Current Assessment AND Plan Assessment: 25-OH vit D level 6.1 PLAN: Start supplementation Medication and Non-Pharmacologic VTE Prophylaxis/Anticoagulants 05/08/19 0145 pneumatic compression stockings (nh,oh) VTE Prophylaxis: VTE prophylaxis appropriate Plan of care discussed with: Provider, RN, Patient SIGNATURE: Perla Whelan DO PATIENT NAME: Karyn Estes DATE: May 09, 2019 TIME: 3:29 PM PAGER/CONTACT #: [phone] [facility] PROGRESS HNO ID: [id number] Author: Perla Whelan Service: Hospital Medicine Author Type: Physician Type: Progress Notes Filed: 05/09/2019 10:12 AM Note Text: POST FALL ASSESSMENT PATIENT NAME: Karyn Estes ASSESSMENT DATE: 05/08/2019 ASSESSMENT TIME: 3:30PM Subjective Brief description of event: notified by RN that patient sat down on floor while being helped by PCNA to bedside commode. Patient denies injury. Denies hitting her head. Denies pain. Fall witnessed: Yes How did fall occur: During a transfer from bed Location of fall: Patient room Contributing factors: neuropathy Medication List: Reviewed Current Facility-Administered Medications: - ondansetron 4 mg tab(s) (ZOFRAN) OR ondansetron (PF) 4 mg injection (ZOFRAN) - thiamine 100 mg tab(s) (VITAMIN B1) - [COMPLETED] MRI BRAIN WO/W IVCON AND iv contrast (radiology procedure) - mirtazapine 15 mg (REMERON) Recent Lab Results: reviewed Physical Exam BP 129/86 Pulse 90 Temp 36.8 ?C (98.2 ?F) (Oral) Resp 17 Ht 167.6 cm (5' 6 ) Wt 51.8 kg (114 lb 3.2 oz) SpO2 98% BMI 18.43 kg/m? Is the Patient Experiencing Pain: No: 0 on a scale of 0 to 10 Gen: NAD, AANDO. No head/facial trauma. HEENT: MMM Heart: RRR Lungs: CTAB. No accessory muscle use Abd: soft, NT, ND. NABS. No masses Ext: no edema Skin: no rashes/abrasions/ecchymosi s. Neuro: Face symmetric. Moves all four extremities without gross deficits. Msk: cervical spine ROM intact without pain. No midline SP pain with palpation of c/t/l-spine. Post-Fall Assessment/Plan Fall Injury: No Imaging: not required Labs: none needed High Fall Risk Other interventions: none Consults: PT Patient Active Hospital Problem List: Paresthesias (05/08/2019) Anxiety (05/08/2019) Alcohol abuse (05/08/2019) Malnutrition of moderate degree (HCC) (05/08/2019) Nicotine use disorder, F17.2 (05/09/2019) VTE Prophylaxis: Heparin 5000 units Sub Q BID Family notified by: not required SIGNATURE: Perla Whelan DO PATIENT NAME: Karyn Estes DATE: 05/09/2019 TIME: 10:09 AM PAGER #: [phone] Normal [facility] THERAPY NTon 05-09-2019 THERAPY NT HNO ID: [id number] Author: Aury (Pt) Orlin Service: Physical Therapy Author Type: Physical Therapist Type: Therapy (PT/OT/Speech/Resp) Filed: 05/09/2019 2:57 PM Note Text: Physical Therapy Evaluation SERVICE DATE: 05/09/2019 SERVICE TIME: 1317 to 1403 ROOM: [place] [id number] Recommended Discharge Disposition: Acute Rehab Recommended Discharge Disposition Comments: pt has significant motor and sensory deficits - was indep 3 weeks ago. recommend daily, intensive PT to regain maximum level of function Justification For Post Acute Needs: Anticipate patient will tolerate 3 hours of daily therapy at the time of admission to post-acute setting;Anticipated community discharge;Good premorbid functional status;Living the community premorbidly;Medically complex;Willing to participate;Anticipate that patient will require daily (5x/wk) skilled therapy in a post-acute facility setting at the time of acute hospital discharge Anticipated Discharge Needs: Physical Assist at Home;Undetermined Physical Assist at Home for: Transfers;Ambulation;Clean ing;Laundry;Meals;Medicati on Management;Stairs;Safety;S elf Care;Shopping;Transportati on;Finances PT Recommendations to Nursing: Transfer to/from chair;OOB for Meals;With assist of 2 people Device: Wheeled Walker(gait belt) PT 6 Clicks Score: 15 Precautions/Activity Restrictions: Fall Risk Precaution/Activity Restriction Comments: 2 assists required for safe transfers ASSESSMENT : 29 year old patient admitted with paresthesia extremities, weakness, unable to ambulate. Pt's Co-Morbidities and Relevant Past Medical History: paresthesias, anxiety, alcohol abuse, malnutrition, nicotine use d/o. Pt's performance remaining consistent throughout session. Pt reports tingling BLE's like my legs fell asleep - with intact but diminished sensation. Pt has impaired coordination and generalized weakness x 4, but most specifically muscle weakness of bilat ankle eversion, and bilat adductors. Pt also has significant weakness of quads and hip extensors as noted during difficulty with sit/stand transfers and during gait trials. Pt ambulates with ataxic gait pattern with excessive knee extension -(and slightly abducted) during swing thru phase with an accentuated heel strike. Pt appears to be at significant risk to fall secondary to motor weakness and impaired sensation. Pt will benefit from continued, daily, intensive PT to regain maximum level of independence/functioning, recommend acute rehab. Pt will benefit from OT consult for cognitive assessment, as pt reports difficulty focusing/fogginess. Patient Disposition at Start of Session: Supine in Bed;Call Gray in Reach;SCDs Patient Disposition at End of Session: Supine in Bed;Call Gray in Reach;Bed Alarm;SCDs Tolerated Full Session Physical Therapy Problem List: Impaired Self Care;Decreased Activity Tolerance;Decreased Strength;Functional Mobility Impairment;Balance Impaired;Sensory Deficit;Safety Deficits Patient /Caregiver Goals: Walk;Care For Self Goals for Plan of Care: Able to perform HEP with: Verbal Cues Only Rolling with: Supervision Transfer supine to/from sit with: Supervision(without assist of UE's required) Transfer sit to/from stand with: Minimal Assistance Ambulate with: Minimal Assistance Distance: >50 Device: Wheeled Walker Transfer: bed <-> chair with WW and min assist of one Rehab Potential: Good PLAN: Treatment Frequency (times per week): 3 Current admission Treatment Interventions: Education;Joint Mobility;Strengthening;Fun ctional Mobility Training;Balance Training;Neuromuscular Re-education Plan of Care developed with: Patient TREATMENT INTERVENTIONS: Interventions Provided: Evaluation;Therapeutic Exercise (32485);Gait Training (06174) $ Evaluation-Moderate (16739) Billed Units: 1 unit Therapeutic Exercise (01646) Treatment Minutes: 20 1 unit Skilled Intervention(s): Instruction in therapeutic exercise Verbal and tactile cuing provided Facilitation of muscle control, optimal recruitment and alignment Patient performed LE therapeutic exercise to increase strength necessary for patient to perform functional mobility with decreased assistance and risk of falls. Educated pt on importance of LE strength for return to prior level of function Pt instructed in supine therapeutic exercises Goals and purpose of each exercise explained to pt Written instructions provided/reviewed with pt Ankle pumps- and circles - emphasis on trying to make complete coe[place] d'alene ( has eversion weakness) Quadricep Sets Gluteal Sets Heel slides Abduction/adduction Pt also performed supine bridging (cueing to maintain LE's in midline) and supine abduction/adduction with knees flexed (active/resisted- tactile and verbal cueing to improve performance/recruitment) Patient performed LE therapeutic exercise to increase strength necessary for patient to perform functional mobility with decreased assistance and risk of falls. Educated pt on importance of LE strength for return to prior level of function Pt instructed in seated therapeutic exercises Goals and purpose of each exercise explained to pt Written instructions provided/reviewed with pt Ankle pumps and circles Long Arc Quadriceps Hip flexion Hamstring curl Hip abduction/adduction Verbally reviewed with pt and wrote on both HEP's that pt should attempt to complete exercises using good quality of movement - I.e., smooth movements, slowing down motion if needed to reduce ataxia/deviation of movement Gait Training (64716) Treatment Minutes: 10 1 unit Skilled Intervention(s): Instruction in sit to stand technique with proper hand placement and body positioning at edge of bed/chair, Instruction in stand to sit technique with LE's touching chair/bed and reaching back for surface, Instruction in sequencing, gait pattern, Instruction in correction of gait deviations and Instruction in use of equipment, cues for sequence and pattern Patient educated in mechanisms required for balancing including Vestibular, occular and kinesthetic. Recommended patient use night light or leave curtains open at night for ambient street lighting to improve safety/mobility at nighttime Educated patient that sensory loss/peripheral neuropathy can impair proprioceptive input, making proprioception more difficult, with more reliance on other 2 systems required to maintain balance. Reviewed with pt that although her sensation BLE is intact, it is diminished. Gait ataxic - excessive knee extension during swing phase ( slightly abducted as well- likely secondary to weak abductors) Total Timed Code Treatment Minutes: 30 Total Treatment Time (minutes): 46 SUBJECTIVE: Current Hospital Course: Chart reviewed; pt admitted with 3 week history of progressive weakness. No past medical history on file. No past surgical history on file. Reason for Physical Therapy Consult : safety assessment Relevant Past Medical History: paresthesias, anxiety, alcohol abuse, malnutrition, nicotine use d/o. Patient Report: It just got better - pt reports similar symptoms in the past, that spontaneously resolved Home Environment Patient Lives With: Significant Other(boyfriend and 2 kids -10 and 11 y/o) Assistance Available: (boyfriend works during the day) Entry To Home: No Stairs Number Of Stairs To Bed/Bath: 0 Tub/Shower Type: tub with shower - hand held shower - shower chair Laundry: first floor - pt completes Equipment Owned: Wheeled Walker;Hand Held Shower;Shower Chair Prior Functional Level: History of Falls;Required Assistance(reports 2 falls in past 6 months) Assistance Required With: Cleaning;Laundry;Meals;Sta irs;Safety;Transportation; Shopping Prior Functional Level Comments: pt with recent decline in function ( approx 1 week)- requiring increased assist for mobility.(had similiar episode in the past) OBJECTIVE: CURRENT FUNCTIONAL STATUS: Current Functional Mobility Assist Level Additional Information Rolling Supine to Sit Stand By Assistance Sit to Supine Scooting Stand By Assistance Sit to Stand Moderate Assistance Stand to Sit Moderate Assistance Bed to Chair Toilet/Commode Gait Moderate Assistance Gait Device: Wheeled Walker Gait Distance (feet): 25' x 2 Stairs Curb Step Car Transfer General Gait Deviations: Antalgic gait pattern;Brianna decreased;Step length decreased;Flexed trunk posture;Difficulty changing direction/turning;Loss of Balance;Other: See comment(excessive heel strike/ataxic foot placement bilat/unsteady) During finger/nose coordination testing, pt overshooting, side shooting, with both finger and nose. Pt at conclusion of testing dropped LUE to side and bumped her head with her hand while lowering arm. Activity Tolerance: (fatigues with activity) -HLM: 7: Walk 25 feet or more Please see discipline specific clinical documentation flowsheet for complete details for this therapy evaluation/treatment. SIGNATURE: Aury Ordaz PT PATIENT NAME: Karyn Estes DATE: May 09, 2019 TIME: 2:37 PM Normal [facility] Blood Cultureon 05-08-2019 Bacteria identified Cx Nom (Bld) Sp. Request/Comment: - The blood culture bottles are underfilled. Adding volume lower or higher than the 8 to 10 mL per bottle, which is the manufacturers recommended volume, may adversely affect the recovery and/or detection of organisms. 6.0CC Culture Result - No growth 5 days Normal [facility] Comment on above: Performed By: #### C BCDIF, CMP #### [facility] [address] [place], [place] [address] CASE MGT INIT [facility] 2018 CASE MGT INIT [facility] HNO ID: [id number] Author: Georgette Ortez (Sw) Service: Social Work Author Type: Big Data Developer Type: Care Mgt Initial Assessment Filed: 05/08/2019 1:38 PM Note Text: CARE MANAGEMENT: ASSESSMENT AND DISCHARGE PLAN SERVICE DATE: 05/08/2019 SERVICE TIME: 1:28 PM PRIMARY CARE PHYSICIAN: Carl Child MD ADMISSION STATUS: Inpatient Needs Prior to Discharge: To Be Determined MEDICAL: Patient/Ski Technician Stated Goals: To have reduction in symptoms To improve my functional status To return home to life as it was Health Insurance: [facility] . Health Issues Impacting Discharge Plan: Newly diagnosed Dizziness Weakness and tingling in lower extremeties Last Admission Date: none Is this Within the Past 30 days? 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 How often do you need to have someone help you when you read instructions, pamphlets, or other written material from your doctor or pharmacy? Rarely - 2 2. How confident are you filling out medical forms by yourself? Quite a bit - 2 If Patient scores > 3 on either question, the following interventions were put into place: Use of plain language and active listening with Patient and family, Teach back methods employed to ensure comprehension and Gave Patient the opportunity to ask questions FUNCTIONAL AND COGNITIVE/BEHAVIORAL PRIOR TO ADMISSION: Baseline Mental Status: Alert AND Oriented, Person, Place , Time and Situation Functional Status: Needs Assistance Does Patient Currently Receive Any Community Services or Home Care? None Equipment Prior to Admission: Tub bench/chair Walker Has the Patient Been in a Custodial Facility in the Past 30 days? No SOCIAL: Living Arrangement: Home Lives With: Significant Other Neptali Financial Resources: Unemployed Primary Contact: Extended Emergency Contact Information Primary Emergency Contact: Neptali Diallo Mobile Relation: Significant other Supportive: Yes Other Important Patient Contacts: None Caregiver Assessment: Caregiver is ready, willing and able to meet the patient's needs as recommended by the inter-professional team? Yes Patient's transition needs and plan for meeting these needs: Pt's boyfriend provides assistance at home Does the patient have an acute stroke diagnosis, or has the patient had a stroke during this admission? Neuro on consult Work up in progress Medication Adherence: I am convinced of the importance of my prescription medication: Agree mostly - 0 I worry that my prescription medication will do more harm than good to me Disagree mostly - 0 I feel financially burdened by my [id number] expenses for my prescription medication: Disagree mostly -0 Patient is categorized as low risk < 2 Are you interested in bedside delivery of your medications? Yes Food Concerns: In the Last Month, Have You had Trouble Getting Food? No trouble getting food During the Last Month, Have You Worried Whether Your Food Would Run Out Before You Had Enough Money to Buy More? No Is the Patient Psychosocially Complex? No ASSESSMENT AND PLAN: Medical Needs: None Psychosocial Needs: None FREEDOM OF CHOICE EXPLAINED: N/A POTENTIAL TRANSITION PLANS To Be Determined Pt is a 29 yo female admitted to [facility] from [facility] ED. Pt lives with her boyfriend and her two children (Ages 11 yo and 9 yo). Pt states her boyfriend is watching them while she is in the hospital. She lives in [facility] and usually follows with a PCP in [facility]. She stated she went to [facility] to try to get answers on why she is becoming weaker. She does have a walker at home which she had been using until recently when she was not able to ambulate at all. Discussed role of CM in Care planning. Provided forms for Advanced Directives Her closest relative is a sister who she does not have much contact with. Therapy evals pending. Neuro on consult SIGNATURE: DOMINGUEZ Gold PATIENT NAME: Karyn Estes DATE: May 08, 2019 TIME: 1:28 PM PAGER/CONTACT #: [phone] Normal [facility] CBCon 05-08-2019 Absolute nRBC <0.01 Normal <0.01 [facility] Comment on above: Performed By: #### V ITD #### [facility] [address] [place], [place] [address] Erythrocyte distribution width (RBC) [Ratio] 13.3 % Normal 11.5-15.0 [facility] Comment on above: Performed By: #### V ITD #### [facility] [address] [place], [place] [address] Hematocrit (Bld) [Volume fraction] 35.3 % Low 36.0-46.0 [facility] Comment on above: Performed By: #### V ITD #### [facility] [address] [place], [place] [address] Hemoglobin (Bld) [Mass/Vol] 12.0 g/dL Normal 11.5-15.5 [facility] Comment on above: Performed By: #### V ITD #### [facility] [address] [place], [place] [address] MCH (RBC) [Entitic mass] 38.5 pG High 26.0-34.0 [facility] Comment on above: Performed By: #### V ITD #### [facility] [address] [place], [place] [address] MCHC (RBC) [Mass/Vol] 34.0 g/dL Normal 30.5-36.0 [facility] Comment on above: Performed By: #### V ITD #### [id number] [place], [place] [address] MCV (RBC) [Entitic vol] 113.1 fL High 80.0-100.0 [facility] Comment on above: Performed By: #### V ITD #### [id number] [place], [place] [address] Platelet mean volume (Bld) [Entitic vol] 9.6 fL Normal 9.0-12.7 [facility] Comment on above: Performed By: #### V ITD #### [address] [address] Platelets (Bld) [#/Vol] 202 10*3/uL Normal 150-400 [facility] Comment on above: Performed By: #### V ITD #### [id number] [place], [place] [address] RBC (Bld) [#/Vol] 3.12 10*6/uL Low 3.90-5.20 [facility] Comment on above: Performed By: #### V ITD #### [address] [address] WBC (Bld) [#/Vol] 5.32 10*3/uL Normal 3.70-11.00 [facility] Comment on above: Performed By: #### V ITD #### [id number] [place], [place] [address] CONSULTon 05-08-2019 CONSULT HNO ID: [id number] Author: Jamie Guardado Service: Psychiatry Author Type: Physician Type: Consults Filed: 05/08/2019 2:57 PM Note Text: PSYCHIATRY INITIAL CONSULTATION NOTE NAME: Karyn Estes SERVICE DATE: May 08, 2019 Consulting Service: Hospital Medicine REASON FOR CONSULTATION: Anxiety, possible conversion disorder. Identifying Information: Ms. Estes is a 29 year old female from [place], [place]. HPI: She was admitted to the hospital for weakness. She said her legs started to give out of her a couple of days ago. She said there is nothing she can put her finger on as to why this should be happening. She said she was tripping on things and having trouble walking. She said she came to [place] rather then stay closer to home to get another opinion. She said she had a similar problem a year ago but said it was not quite this bad. She said she drinks 24 oz. Beers, 3-4 days a week, she said about 3 of the 24 oz. Beers when she drinks. She said alcohol has been a problem for her in the past. She said she does not currently work an AA program. She said she has not been hospitalized for her alcohol use or to be detoxed off of alcohol in the past. Her boyfriend does not drink as much as she does and she said he has commented on her alcohol use. She said she has been on Zyprex from her family doctor and said it was to help her sleep. She said she has not used other prescription medications for sleep in the past. She described the primary psychiatric symptoms as being scared, not sure what is going on . She said she has been anxious for a few weeks, about everything . STRESSORS: Health, Bills, relationship with family, boyfriend and children. COLLATERAL INFORMATION: I attempted to contact Neptali Imani, . She said he is her boyfriend of the last year. There was no answer and the voice mail box has not been set up at this time. PSYCHIATRIC REVIEW OF SYMPTOMS: Pertinent Positives: Anxiety. Said she is not sure when she started drinking again. The remainder was reviewed and unremarkable. REVIEW OF SYSTEMS: Pertinent Positives: Trouble standing and walking. The remainder was reviewed and unremarkable. No past medical history on file. No past surgical history on file. PSYCHIATRIC HISTORY: Diagnoses: Alcohol Use Disorder Current Psychiatrist: No prior psychiatrist Current Therapist: No prior therapist Last Hospitalization: For detox about 7 years ago. Said just the one time to detox. History of Suicide Attempts: She denied any attempts but said she has had suicidal thoughts in the past. Previous Psychiatric Medication Trials: Just the Zyprexa Substance Abuse History: Alcohol: She said she drinks 24 oz. Beers, 3-4 days a week, she said about 3 of the 24 oz. Beers when she drinks. She said alcohol has been a problem for her in the past. She said she does not currently work an [facility] program. She said she has not been hospitalized for her alcohol use or to be detoxed off of alcohol in the past. She said she started to drink at 14 years old. Marijuana: said none in 2 years. Cocaine: Said she tried but not in many years. Opioids: Heroin, Percocet , she said she thinks about a month ago. She said she has had IV drug use. Started using about 23 years old. OTHER SUBSTANCE USE: Heroin, Crystal Meth and Benzodiazepine MEDICATIONS: Current Facility-Administered Medications Medication Dose Route Frequency - ondansetron 4 mg tab(s) (ZOFRAN) 4 mg ORAL q 6 H PRN Or - ondansetron (PF) 4 mg injection (ZOFRAN) 4 mg INTRAVENOUS q 6 H PRN - OLANZapine 5 mg tab(s) (ZyPREXA) 5 mg ORAL AT BEDTIME - thiamine 100 mg tab(s) (VITAMIN B1) 100 mg ORAL DAILY - iv contrast (radiology procedure) INTRAVENOUS DIRECTED PRN ALLERGIES No Known Allergies SOCIAL HISTORY: Childhood: Said she was raised in [place] as the youngest of 4 children. She denied any abuse as a child. She went to [employer] school and graduated in 2005. She then went to work at the [employer]. Relationships: single, never , she has a boyfriend, Neptali, 24 years old, for the last year. Children: Yes, (2) minors - does have custody, 10 and 8 years old. 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 Current supports: spouse/partner Legal history: INCARCERATIONS: for few months in the past for possession of heroin Caodaism affiliation(s): None Abuse history: She denied a history of emotional, physical or sexual abuse, or any history of trauma. No family history on file. Family Psychiatric History: Alcoholism (Father and Mother) and Chemical dependency (Sister) Vital Signs: 05/08/19 0125 05/08/19 0406 05/08/19 0734 05/08/19 1223 BP: 113/79 118/83 119/83 Pulse: 95 98 97 Resp: Temp: 36.6 ?C (97.9 ?F) 36.4 ?C (97.5 ?F) 36.3 ?C (97.3 ?F) TempSrc: Oral Oral Oral SpO2: 97% 96% 98% Weight: 51.8 kg (114 lb 3.2 oz) Height: 167.6 cm (5' 6 ) PHYSICAL EXAMINATION: Muscle Tone/Strength: No rigidity, tremor, hyperreflexia, or clonus noted. Moved extremities against gravity. Neuro: Cranial nerves II-XII grossly intact. Gait/Station: Not tested; she was lying in bed. MENTAL STATUS EXAMINATION: Appearance: In hospital gown Behavior: a little evasive Psychomotor: No psychomotor agitation. Cognition Level of Consciousness: Awake and alert. No fluctuation in wakefulness. Orientation: Person, Time and Situation Memory: not very good, pretty foggy . Attention/Concentration: Able to spell world backwards Fund of Knowledge: Unable to demonstrate an awareness of current events. Mood: Distressed Affect: Fearful and Mood-congruent and reactive within a normal range. Speech/Language: The patient demonstrates appropriate tone, prosody, brianna, phonetics, and syntax and Appropriate tone, prosody, brianna, phonetics, and syntax Thought Form: Goal-directed. No loosening of associations. Thought Content: No delusions noted or endorsed. Perceptual disturbances: Did not appear to respond to auditory stimuli. Safety: Suicidal Ideations: No suicidal ideation, intent or plan. Homicidal Ideations: No homicidal ideation, intent or plan. Insight: Fair Judgment: has been poor lately. Lab Results Component Value Date/Time WBC 5.32 05/08/2019 05:25 AM RBC 3.12 (L) 05/08/2019 05:25 AM HCT 35.3 (L) 05/08/2019 05:25 AM MCV 113.1 (H) 05/08/2019 05:25 AM MCH 38.5 (H) 05/08/2019 05:25 AM MCHC 34.0 05/08/2019 05:25 AM RDWCV 13.3 05/08/2019 05:25 AM PLT 202 05/08/2019 05:25 AM NEUTP 68.1 05/07/2019 09:20 PM LYMPHP 21.0 05/07/2019 09:20 PM MONOP 10.1 05/07/2019 09:20 PM EODINP 0.5 05/07/2019 09:20 PM BASOP 0.3 05/07/2019 09:20 PM ABSNEUT 3.97 05/07/2019 09:20 PM ABSMONO 0.59 05/07/2019 09:20 PM ABSEOSIN 0.03 05/07/2019 09:20 PM ABSBASO <0.03 05/07/2019 09:20 PM GLUC 90 05/08/2019 05:25 AM NA 138 05/08/2019 05:25 AM K 3.3 (L) 05/08/2019 05:25 AM CHLOR 103 05/08/2019 05:25 AM BUN 4 (L) 05/08/2019 05:25 AM CREAT 0.46 (L) 05/08/2019 05:25 AM CO2 22 05/08/2019 05:25 AM TPROT 5.8 (L) 05/08/2019 05:25 AM ALB 3.2 (L) 05/08/2019 05:25 AM CA 8.8 05/08/2019 05:25 AM AST 47 (H) 05/08/2019 05:25 AM ALT 24 05/08/2019 05:25 AM ALKPHOS 95 05/08/2019 05:25 AM TBILI 0.4 05/08/2019 05:25 AM Lab Results Component Value Date UAMPH Negative 05/07/2019 UBARB2 Negative 05/07/2019 UBENZ Negative 05/07/2019 UCOC2 Negative 05/07/2019 UOPI Negative 05/07/2019 UOXYC Negative 05/07/2019 UPCP Negative 05/07/2019 UTHC Negative 05/07/2019 UETOH <11 05/07/2019 pH, Urine Date Value Ref Range Status 05/07/2019 7.0 4.5 - 8.0 Final Specific [place], Ur Date Value Ref Range Status 05/07/2019 1.006 1.005 - 1.030 Final Glucose, Urine Date Value Ref Range Status 05/07/2019 Negative Negative mg/dL Final Bilirubin, Urine Date Value Ref Range Status 05/07/2019 Negative Negative Final Ketones, Urine Date Value Ref Range Status 05/07/2019 Negative Negative Final Hemoglobin/Blood,Ur Date Value Ref Range Status 05/07/2019 Negative Negative Final Protein, Urine Date Value Ref Range Status 05/07/2019 Negative Negative mg/dL Final Urobilinogen Date Value Ref Range Status 05/07/2019 Normal Normal Final Nitrites Date Value Ref Range Status 05/07/2019 Negative Negative Final WBC, Urine Date Value Ref Range Status 05/07/2019 11-25 (A) 0 - 5 /HPF Final ASSESSMENT/FORMULATION: Ms. Estes is a 29 year old female admitted to the hospital for weakness. She said her legs started to give out of her a couple of days ago. She said there is nothing she can put her finger on as to why this should be happening. She said she was tripping on things and having trouble walking. She said she had a similar problem a year ago but said it was not quite this bad. She said she drinks 24 oz. Beers, 3-4 days a week, she said about 3 of the 24 oz. Beers when she drinks. She said alcohol has been a problem for her in the past. She said she does not currently work an [employer] program. She said she has not been hospitalized for her alcohol use or to be detoxed off of alcohol in the past. Her boyfriend does not drink as much as she does and she said he has commented on her alcohol use. DIAGNOSIS: 1. Alcohol Use Disorder 2. Polysubstance Use Disorder Clinical Global Impression--Severity of illness Scale: How ill is the patient at this time (taking into account her history, psychological circumstance, symptoms, behavior, impact of symptoms on functioning)? 5 = Markedly ill (intrusive symptoms, distinctly impair social/occupational function) RECOMMENDATIONS: A. Safety/Acute interventions recommended: None currently B. Psychiatric medication recommendations:Will switch the Zyprexa to Remeron to lessen risks of nursing home side effects. She denied any psychotic issues or history of psychotic issues or Bipolar Disorder. C. Diagnostic tests recommended: None D. Psychiatry will follow with you. Would ask case management to discuss treatment options with her. SIGNATURE: Jamie Guardado MD PATIENT NAME: Karyn Estes DATE: May 08, 2019 TIME: 1:44 PM [facility] CONSULT HNO ID: [id number] Author: Casey Cheung Service: Neurology General Author Type: Physician Type: Consults Filed: 05/10/2019 7:47 AM Note Text: Chief Complaint: Karyn Estes is a 29 year old right handed female who presents with numbness in my hands and my legs - I'm not really hungry - I feel kind of dizzy - I feel kind of confused . History of Present Illness She has never felt this way before. The tingling in her legs started first - a couple of days ago. It has been pretty constant. It spread from the lower legs. It spread to all 10 fingertips, less severe than in her legs, yesterday. She has not experienced it periorally. The dizziness began a couple of days ago as well - it is a unsteady, dizzy feeling . She adds that she has ringing tinnitus which began yesterday. She admits to blurry vision. (She does not wear glasses ordinarily). She denies carpopedal spasm. She denies shortness of breath. She denies any history of asthma. She admits to anxiety - just regular anxiety for a couple of years now. She is a smoker - 0.5 ppd. She is trying to quit - she denies any particular reason for quitting at this time; it is just a good idea. No past medical history on file. She denies any past health issues. Current Facility-Administered Medications: ondansetron 4 mg tab(s) (ZOFRAN) 4 mg ORAL q 6 H PRN Or ondansetron (PF) 4 mg injection (ZOFRAN) 4 mg INTRAVENOUS q 6 H PRN OLANZapine 5 mg tab(s) (ZyPREXA) 5 mg ORAL AT BEDTIME ALLERGIES No Known Allergies Social History Socioeconomic History Marital status: Single Spouse name: Not on file Number of children: Not on file Years of education: Not on file Highest education level: Not on file Social Needs Financial resource strain: Not on file Food insecurity - worry: Not on file Food insecurity - inability: Not on file Transportation needs - medical: Not on file Transportation needs - non-medical: Not on file Occupational History Not on file Tobacco Use Smoking status: Not on file Substance and Sexual Activity Alcohol use: Not on file Drug use: Not on file Sexual activity: Not on file Other Topics Concerns: Not on file Social History Narrative Not on file No family history on file. There is no family history of neurologic illness. Review of Systems: She feels weak in her legs. She had a seizure years ago, but during adult life. It never recurred. It was from ETOH abstention. She was self medicating anxiety. She has never had help from a psychiatrist or a psychologist for her anxiety. There is no history of stroke or syncope; atrophy, unusual fasciculations or cramping; abnormalities of taste or smell; dysphagia or dysarthria; incontinence of bowel or bladder; concussion; fracture of the spine; difficulty breathing; recent fever or chills. PHYSICAL EXAM General: Alert, conversant, appropriate, young, FEMALE, in no apparent distress. Vital Signs: BP 118/83 Pulse 98 Temp 36.4 ?C (97.5 ?F) (Oral) Resp 18 Ht 167.6 cm (5' 6 ) Wt 51.8 kg (114 lb 3.2 oz) SpO2 96% BMI 18.43 kg/m? - reviewed. Head: Conjunctivae and sclerae normal. Neck: Supple, without Lhermitte's phenomenon. Cardiovascular: Carotids 2 and symmetric without bruits. No subclavian or vertebral bruits. Cardiac rhythm regular. Heart sounds normal. Neurologic: Cranial Nerves: There is somewhat pronounced, symmetric, horizontal end gaze nystagmus. Monocular visual jennings intact to finger counting. Fundoscopic reveals flat discs and no hemorrhages. Pupils equal, round and reactive to light. Facial sensation normal to pin. Facies symmetric. Hearing normal to 1024 Hz tuning fork. Palatal movement, phonation, and resonation normal. Trapezius and SCM 5/5 and symmetric. Tongue movement symmetric. Sensory: Vibration is diminished at the right index finger alone. Normal to pin, vibration, and joint position sense. Motor: Her feet are somewhat plantar flexed and inverted at the ankles at rest in bed; her toes are a little hammered. She states they are not usually like that. There is collapsing weakness on testing finger abduction, finger extension, elbow flexion, elbow extension, shoulder abduction (when tested separately, right and left), toe dorsiflexion, ankle dorsiflexion, , knee flexion, knee extension, hip flexion, and hip abduction (when tested separately, right and left). . Strength was 5/5 and symmetric on testing shoulder abduction in tandem, right and left together; ankle plantar flexion; and hip abduction when tested in tandem (right and left together while seated). Tone was normal. There was no atrophy. There were no fasciculations. There were no involuntary movements. Coordination: Ukvtya-fklh-[id number] testing finds her mis-targeting about an inch from my finger. There does appear to be a little intention tremor superimposed. Toe wiggling is nearly absent. Finger wiggling rapid alternating movements were normal. Gait: She has been unable to arise on her own paper, just recent . With my assistance, she adopts a wide, unstable stance - probably ataxic - though in the presence of non-neurologic weakness, it is difficult to be sure. Deep Tendon Reflexes: Plantars were mute bilaterally. Unable to relax for biceps reflexes. Triceps 2 and symmetric. Patellar and Achilles reflexes were absent. Mental Status: Oriented to March,; and [facility] (at first said she did not know the date at all). Conversant. General information poor (news). Intermediate memory 1+/3 at 2 minutes ('ball' ---> pole ). Other: Hyperventilation for 1 minute with adequate effort reproduced her dizziness and blurry vision, which were not present at the onset of her effort. It accentuated her ringing tinnitus which was already present. It did not accentuate her tingling numbness, which was also already present. IMPRESSION AND PLAN: There may be two things going on, basically: 1) possible Charcot Aure Tooth, affecting her ability to ambulate, and for which she will need an outpatient EMG. 2) Anxiety, which in turn results in: A) self medication with ETOH, which may be causing Wernicke's [correction: 05/10/19: this should read 'encephalopathy' NOT 'thiamine'] (pronounced horizontal end gaze nystagmus, complaints of confusion, probable ataxia). First and foremost, she needs to be treated with thiamine. Then, she will need an MRI to look for hemorrhage in the thalami or mamillary bodies. B) hyperventilation, which causes her dizziness, tinnitus, and blurry vision. It may be contributing to her tingling numbness. She will need psychiatric help with this. C) Non-neurologic weakness; probably conversion disorder. She denies any particular stressors to me. She will again need pschiatric input. Casey Cheung MD Staff, General Neurology Normal [facility] Comp Metabolic Panelon 05-08 Albumin [Mass/Vol] 3.2 g/dL Low 3.9-4.9 [facility] Comment on above: Performed By: #### V ITD #### [id number] [place], [place] [address] ALP [Catalytic activity/Vol] 95 U/L Normal 34-123 [facility] Comment on above: Performed By: #### V ITD #### [address] [address] ALT [Catalytic activity/Vol] 24 U/L Normal 7-38 [facility] Comment on above: Performed By: #### V ITD #### [address] [address] Anion gap [Moles/Vol] 13 mmol/L Normal 9-18 [facility] Comment on above: Performed By: #### V ITD #### [address] [address] AST [Catalytic activity/Vol] 47 U/L High 13-35 [facility] Comment on above: Performed By: #### V ITD #### [address] [address] Bilirubin [Mass/Vol] 0.4 mg/dL Normal 0.2-1.3 [facility] Comment on above: Performed By: #### V ITD #### [address] [address] Calcium [Mass/Vol] 8.8 mg/dL Normal 8.5-10.2 [facility] Comment on above: Performed By: #### V ITD #### [address] [address] Chloride [Moles/Vol] 103 mmol/L Normal 97-105 [facility] Comment on above: Performed By: #### V ITD #### [address] [address] CO2 [Moles/Vol] 22 mmol/L Normal 22-30 [facility] Comment on above: Performed By: #### V ITD #### [facility] [address] [place], [place] [address] Creatinine [Mass/Vol] 0.46 mg/dL Low 0.58-0.96 [facility] Comment on above: Performed By: #### V ITD #### [facility] [address] [place] [id number] eGFR- Amer. >60 Normal [facility] Comment on above: Performed By: #### V ITD #### [facility] [address] [place] [id number] GFR/1.73 sq M predicted among non-blacks MDRD (S/P/Bld) [Vol rate/Area] mL/min/{1.73_m2} Normal [facility] Comment on above: Result Comment: eGFR (Estimated GFR) Units of measure: mL/min/1.73 meters squared eGFR is derived from the reexpressed MDRD Study equation using the following parameters: serum creatinine, age, gender and race. The creatinine assay has been calibrated to be traceable to IDMS. An eGFR <60 mL/min/1.73m2 for >3 months is consistent with chronic kidney disease. Refer to KDOQI guidelines for clinical interpretation. In patients with unstable renal function, e.g. those with acute kidney injury, the eGFR may not accurately reflect actual GFR. Performed By: #### V ITD #### [facility] [address] [place] [place] [id number] Glucose [Mass/Vol] 90 mg/dL Normal 74-99 [facility] Comment on above: Result Comment: The [place] Diabetes Association (ADA) provides guidance for cutoff values for fasting glucose and random glucose. The ADA defines fasting as no caloric intake for at least 8 hours. Fasting plasma glucose results between 100 to 125 mg/dL indicate increased risk for diabetes (prediabetes). Fasting plasma glucose results greater than or equal to 126 mg/dL meet the criteria for diagnosis of diabetes. In the absence of unequivocal hyperglycemia, results should be confirmed by repeat testing. In a patient with classic symptoms of hyperglycemia or hyperglycemic crisis, random plasma glucose results greater than or equal to 200 mg/dL meet the criteria for diagnosis of diabetes. Reference: Standards of Medical Care in Diabetes 2016, [place] [employer] Association. Diabetes Care. 2016.39(Suppl 1). Performed By: #### V ITD #### [facility] [address] [place], [place] [address] Potassium [Moles/Vol] 3.3 mmol/L Low 3.7-5.1 [facility] Comment on above: Performed By: #### V ITD #### [facility] [address] [place], [place] [address] Protein [Mass/Vol] 5.8 g/dL Low 6.3-8.0 [facility] Comment on above: Performed By: #### V ITD #### [address] [place], [place] [address] Sodium [Moles/Vol] 138 mmol/L Normal 136-144 [facility] Comment on above: Performed By: #### V ITD #### [facility] [address] [place], [place] [address] Urea nitrogen [Mass/Vol] 4 mg/dL Low 7-21 [facility] Comment on above: Performed By: #### V ITD #### [id number] [place], [place] [address] ED NOTEon 05-08-2019 ED NOTE HNO ID: [id number] Author: Leonor GallegosRn) KELECHI Recinos Service: Emergency Medicine Author Type: Registered Nurse Type: ED Notes Filed: 05/08/2019 12:34 AM Note Text: Report called and given to KELECHI Fitch [facility] ED NOTE HNO ID: [id number] Author: Barby Arevalo) Yves Recinos Service: Emergency Medicine Author Type: Clinical Lei Maker Type: ED Notes Filed: 05/08/2019 12:22 AM Note Text: Transport arrived [facility] ED NOTE HNO ID: [id number] Author: Claudia GallegosRn) KELECHI Segura Service: Emergency Medicine Author Type: Registered Nurse Type: ED Notes Filed: 05/07/2019 11:24 PM Note Text: Patient placed on bedpan. Urine yellow in color. Obtained and sent. No dysuria/hematuria. Normal [facility] ED NOTE HNO ID: [id number] Author: Barby Arevalo) Yves Recinos Service: Emergency Medicine Author Type: Clinical Lei Maker Type: ED Notes Filed: 05/07/2019 10:43 PM Note Text: Pt given ice water. Will check back for urine. Normal [facility] ED NOTE HNO ID: [id number] Author: Barby (Kenzie) Yves Recinos Service: Emergency Medicine Author Type: Clinical Lei Maker Type: ED Notes Filed: 05/07/2019 10:35 PM Note Text: 2nd set of cultures obtained and sent. Normal [facility] HISTORY PHYSICALon 9 HISTORY PHYSICAL HNO ID: [id number] Author: Lula Farnk Service: Hospital Medicine Author Type: Physician Type: HANDP Filed: 05/08/2019 2:43 AM Note Text: SERVICE DATE: 05/08/2019 SERVICE TIME: 2:42 AM HOSPITAL MEDICINE HISTORY AND PHYSICAL PCP: Carl Child MD SUBJECTIVE Chief Complaint: Weakness HPI: 29 years old who presented to the ED with weakness and paresthesia for one week. She reported that she was at her usual state of health until a week ago when she started to have tingling sensation in her hands and her legs from her knees down to her feet. She reports that she has decreased sensation in her legs as well to light touch. She feels also generally that she is weak and for that reason she cannot walk without significant assistance. No fever or chills. No shortness of breath, abdominal pain, diarrhea or constipation. Reported that last year she was admitted to hospital in [place]( couldn't confirm if it is [facility]) where she had LP and MRI as well as full workup which was all negative per her report in the ED. When I ask her about that episode last year, she couldn't remember when, where or what happened then. She believes she had these symptoms for almost a week and then completely resolved where she was back to her normal life. Past medical history: Positive for depression Denies any alcohol abuse or drug use. Family history positive for lung cancer Surgical history: None reported No past medical history on file. No past surgical history on file. No family history on file. Social History Tobacco Use - Smoking status: Not on file Substance Use Topics - Alcohol use: Not on file - Drug use: Not on file Medications: Reviewed Allergies: ALLERGIES No Known Allergies Review of Systems: All systems reviewed, neg except for what mentioned above OBJECTIVE: PHYSICAL EXAM BP 114/79 Pulse 101 Temp (Src) 98.1 (Oral) Resp 20 Ht 5' 6 (1.68m) Wt 114 lb 3.2 oz (51.8kg) SpO2 97% BMI 18.44 kg/(m2). O2 Therapy: Room Air Physical Exam Performed: GEN: in NAD HEENT: atraumatic, normocephalic, PERRL, EOMI CV: RRR, no murmurs, Gallops or rubs Resp: CTAB, no wheezing or crackles Abd: Soft, NTND Ext: no LE edema, clubbing or cyanosis MSK: normal ROM Skin: small ecchymosis under her L eye, (denies any trauma, reports it could be make up) Neuro: Cranial nerves II-XII grossly intact, Strength:5/5 in all ext, reports decreased sensation to light touch from her knees down to her feet Psych: Appears slightly anxious Lines, Drains, and Airways Line Peripheral 05/08/19 0110 Admission to Hospital Left Forearm 20 Gauge less than 1 day Diagnostic tests reviewed: Most recent labs and imaging results CARE COORDINATION: No Patient Care Coordination Note on file. ASSESSMENT AND PLAN Assessment AND Plan, all Hosp Problems Active Hospital Problems as of 05/08/2019 Noted - Resolved Hospital Weakness 05/08/2019 - Present Current Assessment AND Plan Assessment: Associated with paresthesia in her hands and lower extremities from her knees down, unclear etiology, denies alcohol abuse, reported similar symptoms last year with extensive workup in [place] last year that resolved after a week, she couldn't confirm this history for me. After admission she started reporting also ringing in both ears and mild vertigo. CK normal, strength 5/5 in 4 extremities, but she is not able to walk without assistance Plan We'll get vitamin B12 level Neurology consult Will need to obtain records from the hospital as she had a workup last year, Alfredo Saunders? PT/OT Medication and Non-Pharmacologic VTE Prophylaxis/Anticoagulants 05/08/19 0145 pneumatic compression stockings (fl,oh) VTE Prophylaxis: VTE prophylaxis appropriate SIGNATURE: Lula Frank MD PATIENT NAME: Karyn Estes DATE: May 08, 2019 TIME: 2:42 AM PAGER/CONTACT #: [phone] [facility] NURSING PROGon 05-08-2019 NURSING PROG HNO ID: [id number] Author: Mirna GallegosRn) KELECHI Carranza Service: ? Author Type: Registered Nurse Type: Nursing Progress Note Filed: 05/08/2019 3:09 PM Note Text: Post Fall Assessment Karyn Estes [id number] Witnessed: Yes How did fall occur: Getting out of bed/chair, transfer to BSC Location: Patient room Contributing factors: increased weakness, new PCNA on floor, PCNA did not realize how weak patient was as she is 29 years old Brief factual description: Assisted fell at bedside. Patient called appropriately to use BSC. PCNA was at bedside in less than a minute. Patient stood with assistance of PCNA and lowered to the floor. New PCNA on floor. Reported that patient was a one assist stand and pivot from previous PCNA. RN had not reported off to new PCNA, as she was with another patient and not aware of PCNA change yet. Initial Physical Assessment Injury: No Patient hit head: No Immediate actions taken: Assisted back to bed / chair Name of LIP notified: Dr Whelan Notify family as appropriate: N/A Post fall interventions: Fall Huddle Conducted, Bed Alarm On, Frequent Observation, Patient/Family Education and My Safety Plan Updated This note was completed by:Mirna Carranza RN [facility] NURSING PROG HNO ID: [id number] Author: Makenna GallegosRn) KELECHI Anderson Service: ? Author Type: Registered Nurse Type: Nursing Progress Note Filed: 05/08/2019 6:58 AM Note Text: Nursing Progress Note Patient Name: Karyn Estes Patient Location: / Daily Note: Labs resulted. K 3.3. Alpha paged Cross Coverage [id number]. Awaiting further orders. ([id number]) New orders received. This note was completed by: Makenna Anderson RN [facility] NURSING PROG HNO ID: [id number] Author: Makenna Person) KELECHI Anderson Service: ? Author Type: Registered Nurse Type: Nursing Progress Note Filed: 05/08/2019 2:18 AM Note Text: Admission/Transfer Note PATIENT NAME: Karyn Estes Patient admitted from [facility] ED via stretcher in stable condition. Actions taken: Patient oriented to room, call light function, prescribed activities, Patient rights and Quiet at night. No futher actions taken at this time. Will continue to monitor and check with patient. This note was completed by: Makenna Anderson RN [facility] NUTRITIONon 05-08-2019 NUTRITION HNO ID: [id number] Author: Hang Arreola Service: Nutrition Therapy Author Type: Registered Dietitian Type: Nutrition Filed: 05/08/2019 1:18 PM Note Text: NUTRITION THERAPY INITIAL ASSESSMENT SERVICE DATE: 05/08/2019 SERVICE TIME: 1:09 PM RECOMMENDED MALNUTRITION DIAGNOSIS: MODERATE PROTEIN-CALORIE MALNUTRITION In the context of Social/Environmental Circumstance based on: Subcutaneous Fat Loss: Mild Loss Muscle Loss: Mild Loss NUTRITION CARE PLAN: Problem, Etiology and Signs/Symptoms: Suboptimal protein/energy intake related to unknown etiology as evidenced by muscle and fat wasting, pt interview Intervention: Start oral supplement Continue diet Encourage oral intake Monitor and Evaluation: Goal: Meet >75% of estimated needs Monitor fluid/electrolyte balance Monitor labs, I/Os, vital signs, weight Discharge Nutrition Recommendations: To be determined I have confirmed and edited as necessary the HPI obtained by Dr Frank on 05/08/19 and all reflect current status. Per HPI: 29 years old who presented to the ED with weakness and paresthesia for one week. She reported that she was at her usual state of health until a week ago when she started to have tingling sensation in her hands and her legs from her knees down to her feet. She reports that she has decreased sensation in her legs as well to light touch. She feels also generally that she is weak and for that reason she cannot walk without significant assistance. No fever or chills. No shortness of breath, abdominal pain, diarrhea or constipation. Reported that last year she was admitted to hospital in [place]( couldn't confirm if it is [facility]) where she had LP and MRI as well as full workup which was all negative per her report in the ED. When I ask her about that episode last year, she couldn't remember when, where or what happened then. She believes she had these symptoms for almost a week and then completely resolved where she was back to her normal life Orders Placed This Encounter DIET REGULAR Standing Status: Standing Number of Occurrences: 1 Lines and Drains: Peripheral 05/08/19 0110 Admission to Hospital Left Forearm 20 Gauge (Active) Nutritional Intake Prior to Admission: <75% estimated energy needs over the past 2 month(s) Pt states she has not been eating well for a couple of months. She endorses some on/off nausea without emesis. She states her weight has not been good , which when asked what that means, she stated weight loss - but was unable to quantify. Per neurology note - pt with anxiety and noting self-medicating w/ etoh as well. GI symptoms: nausea and anorexia Nutrition Abdominal Exam: and not assessed ANTHROPOMETRICS Height: 167.6 cm (5' 6 ) Admission Weight: 51.8 kg (114 lb 3.2 oz) Current Weight: 51.8 kg (114 lb 3.2 oz) Body mass index is 18.43 kg/m?. underweight Weight has unable to determine weight loss *Patients weight on 08/31/18 was 50.7 kg per Epic. Last Wt 05/08/19 : 51.8 kg (114 lb 3.2 oz) 05/07/19 : 49.4 kg (108 lb 12.8 oz) Dosing Weight: 51.8 kg Resting Metabolic Rate: 1251 Estimated kilocalorie needs: 2173-9722 kilocalories determined by 25-30 kcal/kg Estimated protein needs: 52-78 grams determined by 1.0-1.5 g/kg Dosing weight Estimated fluid needs: 0972-6698 milliliters based on 1 mL per kcal NUTRITION FOCUSED PHYSICAL EXAM: Subcutaneous Fat Loss Orbital No fat loss Triceps Mild Mid-axillary at the iliac crest Unable to determine at this time Muscle Loss Locations: Temporalis No muscle loss Pectoralis Mild Deltoids Mild Interosseous Unable to determine at this time Latissimus dorsi, trapezius Mild Quadriceps Unable to determine at this time Gastrocnemius Unable to determine at this time Potential micronutrient deficiency revealed in: No deficiency identified Edema: No Ascites: No Assessment of Functional Status: Unable to assess Temperature Max in 24 hours: Temp (24hrs), Av.5 ?C (97.7 ?F), Min:36.3 ?C (97.3 ?F), Max:36.7 ?C (98.1 ?F) BP 119/83 Pulse 97 Temp 36.3 ?C (97.3 ?F) (Oral) Resp 18 Ht 167.6 cm (5' 6 ) Wt 51.8 kg (114 lb 3.2 oz) SpO2 98% BMI 18.43 kg/m? Recent Labs 05/08/19 0525 GLUC 90 BUN 4* CREAT 0.46* NA 138 K 3.3* CHLOR 103 CO2 22 ALB 3.2* HB 12.0 HCT 35.3* WBC 5.32 Potential Signs of Inflammation: unable to determine at this time ALLERGIES No Known Allergies Current Facility-Administered Medications Medication Dose Route Frequency - ondansetron 4 mg tab(s) (ZOFRAN) 4 mg ORAL q 6 H PRN Or - ondansetron (PF) 4 mg injection (ZOFRAN) 4 mg INTRAVENOUS q 6 H PRN - OLANZapine 5 mg tab(s) (ZyPREXA) 5 mg ORAL AT BEDTIME - thiamine 100 mg tab(s) (VITAMIN B1) 100 mg ORAL DAILY Vitamin and Mineral Labs in the past year: Recent Labs 05/08/19 0525 B12 1,214 MNT Billing Type: Initial Assess/15 min 2 units SIGNATURE: Hang Arreola RD,LD PATIENT NAME: Karyn Estes DATE: May 08, 2019 TIME: 1:09 PM PAGER: [phone] [facility] PROGRESSon 05-08-2019 PROGRESS HNO ID: [id number] Author: Perla Whelan Service: Hospital Medicine Author Type: Physician Type: Progress Notes Filed: 05/08/2019 1:45 PM Note Text: Hospital Medicine Plan of Care Update HANDP from this morning reviewed. Patient seen and examined. 1. 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 Neurology consult appreciated. DDx Wernicke's encephalopathy vs Charcot Aure Tooth vs conversion disorder vs anxiety Started thiamine B12 level normal. MRI brain pending EMG as outpatient Psych consult appreciated. Similar presentation in 08/2018 at [facility]. Extensive work up, including LP and full spine MRI to r/o myelopathy. Infection, Guillian-Ulysses, MS and AIDP/CIDP were ruled out. Was supposed to follow up outpatient in 10/2018 with neurology for EMG but did not. 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 2. Hypokalemia Supplement. Check mag level. 3. Alcohol abuse Declines outpatient resources. Reports last drink one week ago. H/o withdrawal seizures. No signs of withdrawal currently. AST elevated. Check mag level. Perla Whelan DO Associate Staff, Department of Hospital Medicine Clinical Civil Drafting Technicianhydrogen plant operator, [facility] Pager [phone] [facility] Toxicology Screen,Uron 05-08 Amphetamines, Urine Negative Normal Negative [facility] Comment on above: Result Comment: Cuto ff threshold at 1000 ng/mL. Performed By: #### U TOX2, UAWMIC #### [facility] [address] [place], [place] [address] Barbiturates, Urine Negative Normal Negative [facility] Comment on above: Result Comment: Cuto ff threshold at 200 ng/mL. Performed By: #### U TOX2, UAWMIC #### [facility] [address] [place], [place] [address] Benzodiazepines, Ur Negative Normal Negative [facility] Comment on above: Result Comment: Cuto ff threshold at 200 ng/mL. Performed By: #### U TOX2, UAWMIC #### [facility] [address] [place], [place] [address] Cannabinoids, Urine Negative Normal Negative [facility] Comment on above: Result Comment: Cuto ff threshold at 50 ng/mL. Performed By: #### U TOX2, UAWMIC #### [facility] [address] [place], [place] [address] Cocaine, Urine Negative Normal Negative [facility] Comment on above: Result Comment: Cuto ff threshold at 300 ng/mL. Performed By: #### U TOX2, UAWMIC #### [facility] [address] [place] [address] Ethanol, Urine <11 Normal <11 [facility] Comment on above: Performed By: #### U TOX2, UAWMIC #### [facility] [address] [place] [phone] Opiates, Urine Negative Normal Negative [facility] Comment on above: Result Comment: Cuto ff threshold at 300 ng/mL. Performed By: #### U TOX2, UAWMIC #### [facility] [address] [place] [address] Oxycodone, Urine Negative Normal Negative [facility] Comment on above: Result Comment: Cuto ff threshold at 100 ng/mL. Comment: Immunoassay screen only. Cross reactivity with other substances can occur with immunoassay screening. Detection of any drug(s) in this urine toxicology panel is presumptive only. These tests are for medical purposes only and should not be used for compliance monitoring, legal, or forensic use. Samples should be within normal physiological conditions (e.g. pH). This assay does not include adulteration/specimen validity testing. In clinical settings, confirmatory testing is at the practitioner's discretion [1]. If clinically indicated, confirmation by high specificity, quantitative methodology, which includes adulteration/specimen validity testing, may be requested on the same specimen through Client Services ([phone]) if contacted within 48 hours of initial testing. [1]Substance Abuse and Mental Health Services Administration (2012). Clinical Drug Testing in Primary Care Technical Assistance Publication Series 32. Department of Health and Human Services, [place], p.10. These tests were developed and their performance characteristics determined by [facility] [place] ( [facility]). They have not been cleared or approved by the FDA. [facility] is regulated under CLIA as qualified to perform high complexity testing. These tests are used for clinical purposes. They should not be regarded as investigational or for research. Performed By: #### U TOX2, UAWMIC #### [facility] [address] [place] [phone] Phencyclidine, Urine Negative Normal Negative [facility] Comment on above: Result Comment: Cuto ff threshold at 25 ng/mL. Performed By: #### U TOX2, UAWMIC #### [facility] [address] [place] [phone] Urinalysis with Microscopico n 05-08-2019 Bilirubin, Urine Negative Normal Negative [facility] Comment on above: Performed By: #### U TOX2, UAWMIC #### [place] [id number] [place] [phone] Clarity (U) Cloudy Critically abnormal Clear [facility] Comment on above: Performed By: #### U TOX2, UAWMIC #### [place] [phone] Color (U) Yellow Normal Yellow [facility] Comment on above: Performed By: #### U TOX2, UAWMIC #### [place] [id number] [place] [phone] Comments SEE COMMENT Normal [facility] Comment on above: Result Comment: N/A Performed By: #### U TOX2, UAWMIC #### [place] [id number] [place] [address] Epithelial cells LM.HPF (Urine sed) [#/Area] SEE COMMENT Normal [facility] Comment on above: Result Comment: Few Squamous Epithelial Cells Performed By: #### U TOX2, UAWMIC #### [facility] [place] [phone] Glucose Ql (U) Negative Normal Negative [facility] Comment on above: Performed By: #### U TOX2, UAWMIC #### [place] [id number] [place] [phone] Hemoglobin/Blood,Ur Negative Normal Negative [facility] Comment on above: Performed By: #### U TOX2, UAWMIC #### [facility] [address] [place], [place] [address] Ketones Ql (U) Negative Normal Negative [facility] Comment on above: Performed By: #### U TOX2, UAWMIC #### [facility] [address] [place], [place] [address] Leukest 2+ Critically abnormal Negative [facility] Comment on above: Performed By: #### U TOX2, UAWMIC #### [facility] [address] [place], [place] [address] Nitrite Ql (U) Negative Normal Negative [facility] Comment on above: Performed By: #### U TOX2, UAWMIC #### [place] [id number] [place], [place] [address] pH (Bld) 7.0 Normal 4.5-8.0 [facility] Comment on above: Performed By: #### U TOX2, UAWMIC #### [facility] [address] [place], [place] [phone] Protein (U) [Mass/Vol] Negative Normal Negative [facility] Comment on above: Performed By: #### U TOX2, UAWMIC #### [facility] [address] [place], [place] [address] RBC (U) [#/Vol] 0-3 Normal 0-3 [facility] Comment on above: Performed By: #### U TOX2, UAWMIC #### [facility] [address] [place], [place] [address] Specific [place], Ur 1.006 Normal 1.005-1 .03 0 [facility] Comment on above: Performed By: #### U TOX2, UAWMIC #### [facility] [address] [place], [place] [address] Urine Nolberto Comment SEE COMMENT Normal [facility] Comment on above: Result Comment: N/A Performed By: #### U TOX2, UAWMIC #### [facility] [address] [place] [address] Urobilinogen Qn (U) Normal Normal Normal [facility] Comment on above: Performed By: #### U TOX2, UAWMIC #### [place] [address] [place] [phone] WBC (Bld) [#/Vol] 11-25 Critically abnormal 0-5 [facility] Comment on above: Performed By: #### U TOX2, UAWMIC #### [place] [address] [place] [phone] Urine Cultureon 05-08-2019 Bacteria identified Cx Nom (U) Sp. Request/Comment: - Specimen received in preservative Culture Result - No growth (<1,000 CFU/ml) Normal [facility] Comment on above: Performed By: #### C BCDIF, CMP #### [place] [phone] Vitamin B12on 05-08-2019 Cobalamin (Vitamin B12) [Mass/Vol] 1214 pg/mL Normal 232-1245 [facility] Vitamin D 25 Hydroxyon 05-08 Vitamin D 25 Hydroxy 6.1 ng/mL Low 31.0-80.0 [facility] Comment on above: Result Comment: Clas sification of 25 [place] Vitamin D status: Insufficiency/Moderate Deficiency: < or = 30 ng/mL Sufficiency/Optimal Levels: 31 to 80 ng/mL Toxicity: > 100 ng/mL Test performed by chemiluminescent immunoassay. Performed By: #### V ITD #### [place] [address] Blood Cultureon 05-07-2019 Bacteria identified Cx Nom (Bld) Culture Result - No growth 5 days Normal [facility] Comment on above: Performed By: #### C BCDIF, CMP #### [place] [id number] CBC and Differentialon 05-07 Abs Baso <0.03 Normal <0.11 [facility] Comment on above: Performed By: #### C BCDIF, CMP #### [place] [id number] [place] [address] Abs [place] 0.59 k/uL Normal <0.87 [facility] Comment on above: Performed By: #### C BCDIF, CMP #### [place] [address] Abs Neut 3.97 k/uL Normal 1.45-7.50 [facility] Comment on above: Performed By: #### C BCDIF, CMP #### [place] [address] Absolute nRBC <0.01 Normal <0.01 [facility] Comment on above: Performed By: #### C BCDIF, CMP #### [place] [phone] Basophils/100 WBC (Bld) 0.3 % Normal [facility] Comment on above: Performed By: #### C BCDIF, CMP #### [place] [address] DTYPE Auto Diff Normal [facility] Comment on above: Performed By: #### C BCDIF, CMP #### [place] [phone] Eosinophils (Bld) [#/Vol] 0.03 10*3/uL Normal <0.46 [facility] Comment on above: Performed By: #### C BCDIF, CMP #### [place] [phone] Eosinophils/100 WBC (Bld) 0.5 % Normal [facility] Comment on above: Performed By: #### C BCDIF, CMP #### [address] [place], [place] [address] Erythrocyte distribution width (RBC) [Ratio] 13.2 % Normal 11.5-15.0 [facility] Comment on above: Performed By: #### C BCDIF, CMP #### [place] [id number] [place], [place] [address] Hematocrit (Bld) [Volume fraction] 39.9 % Normal 36.0-46.0 [facility] Comment on above: Performed By: #### C BCDIF, CMP #### [place] [address] Hemoglobin (Bld) [Mass/Vol] 14.4 g/dL Normal 11.5-15.5 [facility] Comment on above: Performed By: #### C BCDIF, CMP #### [place] [address] Lymphocytes (Bld) [#/Vol] 1.23 10*3/uL Normal 1.00-4.00 [facility] Comment on above: Performed By: #### C BCDIF, CMP #### [place] [address] Lymphocytes/100 WBC (Bld) 21.0 % Normal [facility] Comment on above: Performed By: #### C BCDIF, CMP #### [place] [address] MCH (RBC) [Entitic mass] 40.6 pG High 26.0-34.0 [facility] Comment on above: Performed By: #### C BCDIF, CMP #### [place] [address] MCHC (RBC) [Mass/Vol] 36.1 g/dL High 30.5-36.0 [facility] Comment on above: Performed By: #### C BCDIF, CMP #### [address] [place], [place] [address] MCV (RBC) [Entitic vol] 112.4 fL High 80.0-100.0 [facility] Comment on above: Performed By: #### C BCDIF, CMP #### [facility] [address] [place], [place] [address] Monocytes/100 WBC (Bld) 10.1 % Normal [facility] Comment on above: Performed By: #### C BCDIF, CMP #### [place] [address] [place], [place] [address] Neutrophils/100 WBC (Bld) 68.1 % Normal [facility] Comment on above: Performed By: #### C BCDIF, CMP #### [address] [address] NRBCs 0.0 /100 WBC Normal 0 [facility] Comment on above: Performed By: #### C BCDIF, CMP #### [place] [id number] [place], [place] [address] Platelet mean volume (Bld) [Entitic vol] 9.7 fL Normal 9.0-12.7 [facility] Comment on above: Performed By: #### C BCDIF, CMP #### [place] [id number] [place], [place] [address] Platelets (Bld) [#/Vol] 237 10*3/uL Normal 150-400 [facility] Comment on above: Performed By: #### C BCDIF, CMP #### [place] [address] [place], [place] [address] RBC (Bld) [#/Vol] 3.55 10*6/uL Low 3.90-5.20 [facility] Comment on above: Performed By: #### C BCDIF, CMP #### [place] [id number] [place], [place] [address] Review Done Normal [facility] Comment on above: Performed By: #### C BCDIF, CMP #### [facility] [address] [place], [place] [address] WBC (Bld) [#/Vol] 5.85 10*3/uL Normal 3.70-11.00 [facility] Comment on above: Performed By: #### C BCDIF, CMP #### [place] [id number] [place], [place] [address] CKon 05-07-2019 CK [Catalytic activity/Vol] 84 U/L Normal 42-196 [facility] Comment on above: Performed By: #### C BCDIF, CMP #### [address] [address] Comp Metabolic Panelon 05-07 Albumin [Mass/Vol] 3.9 g/dL Normal 3.9-4.9 [facility] Comment on above: Performed By: #### C BCDIF, CMP #### [id number] [place], [place] [address] ALP [Catalytic activity/Vol] 113 U/L Normal 34-123 [facility] Comment on above: Performed By: #### C BCDIF, CMP #### [id number] [place], [place] [address] ALT [Catalytic activity/Vol] 27 U/L Normal 7-38 [facility] Comment on above: Performed By: #### C BCDIF, CMP #### [facility] [address] [place], [place] [address] Anion gap [Moles/Vol] 15 mmol/L Normal 9-18 [facility] Comment on above: Performed By: #### C BCDIF, CMP #### [facility] [address] [place], [place] [address] AST [Catalytic activity/Vol] 51 U/L High 13-35 [facility] Comment on above: Performed By: #### C BCDIF, CMP #### [facility] [address] [place] [address] Bilirubin [Mass/Vol] 0.6 mg/dL Normal 0.2-1.3 [facility] Comment on above: Performed By: #### C BCDIF, CMP #### [place] [address] Calcium [Mass/Vol] 9.5 mg/dL Normal 8.5-10.2 [facility] Comment on above: Performed By: #### C BCDIF, CMP #### [place] [phone] Chloride [Moles/Vol] 101 mmol/L Normal 97-105 [facility] Comment on above: Performed By: #### C BCDIF, CMP #### [place] [address] CO2 [Moles/Vol] 22 mmol/L Normal 22-30 [facility] Comment on above: Performed By: #### C BCDIF, CMP #### [place] [address] Creatinine [Mass/Vol] 0.48 mg/dL Low 0.58-0.96 [facility] Comment on above: Performed By: #### C BCDIF, CMP #### [place] [address] eGFR- Amer. >60 Normal [facility] Comment on above: Performed By: #### C BCDIF, CMP #### [place] [address] GFR/1.73 sq M predicted among non-blacks MDRD (S/P/Bld) [Vol rate/Area] mL/min/{1.73_m2} Normal [facility] Comment on above: Result Comment: eGFR (Estimated GFR) Units of measure: mL/min/1.73 meters squared eGFR is derived from the reexpressed MDRD Study equation using the following parameters: serum creatinine, age, gender and race. The creatinine assay has been calibrated to be traceable to IDMS. An eGFR <60 mL/min/1.73m2 for >3 months is consistent with chronic kidney disease. Refer to KDOQI guidelines for clinical interpretation. In patients with unstable renal function, e.g. those with acute kidney injury, the eGFR may not accurately reflect actual GFR. Performed By: #### C BENJAMIN CMP #### [facility] [address] [place], [place] [address] Glucose [Mass/Vol] 103 mg/dL High 74-99 [facility] Comment on above: Result Comment: The [place] Diabetes Association (ADA) provides guidance for cutoff values for fasting glucose and random glucose. The ADA defines fasting as no caloric intake for at least 8 hours. Fasting plasma glucose results between 100 to 125 mg/dL indicate increased risk for diabetes (prediabetes). Fasting plasma glucose results greater than or equal to 126 mg/dL meet the criteria for diagnosis of diabetes. In the absence of unequivocal hyperglycemia, results should be confirmed by repeat testing. In a patient with classic symptoms of hyperglycemia or hyperglycemic crisis, random plasma glucose results greater than or equal to 200 mg/dL meet the criteria for diagnosis of diabetes. Reference: Standards of Medical Care in Diabetes 2016, [place] Diabetes Association. Diabetes Care. 2016.39(Suppl 1). Performed By: #### C BENJAMIN CMP #### [facility] [address] [place], [place] [address] Potassium [Moles/Vol] 3.4 mmol/L Low 3.7-5.1 [facility] Comment on above: Performed By: #### C BENJAMIN CMP #### [facility] [address] [place], [place] [address] Protein [Mass/Vol] 7.2 g/dL Normal 6.3-8.0 [facility] Comment on above: Performed By: #### Abdiel ALEXANDER CMP #### [facility] [address] [place], [place] [address] Sodium [Moles/Vol] 138 mmol/L Normal 136-144 [facility] Comment on above: Performed By: #### C BCDIF, CMP #### [facility] [address] [place], [place] [address] Urea nitrogen [Mass/Vol] 4 mg/dL Low 7-21 [facility] Comment on above: Performed By: #### C BCDIF, CMP #### [facility] [address] [place], [place] [address] ED NOTEon 05-07-2019 ED NOTE HNO ID: [id number] Author: Claudia (Rn) Imelda RN Service: Emergency Medicine Author Type: Registered Nurse Type: ED Notes Filed: 05/07/2019 11:24 PM Note Text: 29 year old well appearing female presents with nausea and vomiting associated with anorexia x 3 weeks, numbness and tingling to her bilateral lower extremities x 1.5 weeks, generalized weakness x 1.5 weeks, and feeling unsteady on her feet. She is unable to stand due to her lower extremity weakness. No upper extremity weakness. She denies chest pain, shortness of breath, abdominal pain, diarrhea, constipation, fever, and chills. She is sitting upright in bed. Awake, alert and oriented x 3. Respirations even and unlabored. Abdomen is soft and nondistended. Skin is normal in appearance, warm, dry, and intact. NAD. ABCs intact. Will continue to monitor and notify LIP of any changes in condition. Normal [facility] ED NOTE HNO ID: [id number] Author: Smita GallegosRn) Trupit RN Service: ? Author Type: Registered Nurse Type: ED Notes Filed: 05/07/2019 8:57 PM Note Text: Bed: E13-B07 Expected date: 05/07/19 Expected time: 8:52 PM Means of arrival: Comments: Normal [facility] ED PROV NOTEon 05-07-2019 ED PROV NOTE HNO ID: [id number] Author: Felix Resendiz Service: Emergency Medicine Author Type: Physician Type: ED Provider Notes Filed: 05/09/2019 4:37 PM Note Text: ED Provider Note Patient Name: Karyn Estes SERVICE DATE: 05/07/19 History Patient presents with: Ringing In Ear(s) Headache: pt has been having blurry vision, headache for the past couple of week Nausea: Pt has been naseous off and on; was seen 5 times is the last few week for the same things Karyn Estes is a 29 year old female with no significant pmh other than suboxone therapy for the past 2 years who presents with c/o nausea, vomiting, weight loss, and weakness that started 3 weeks ago. Additional symptoms include tingling sensation that started in bilateral hands, followed by tingling sensation in bilateral feet which has gradually ascended proximally to her knees bilat. She has been unable to work for the past 3 weeks secondary to the symptoms, and for the past week her boyfriend either caries her to the bathroom or she relies heavily on his assistance to ambulate. She denies: abdominal pain, back pain, ALDANA, colicky type flank pain, bowel / bladder dysfunction, saddle anesthesia, fever, recent IV drug use, recent medical procedure, malignancy. She had similar symptoms in August 2018 worked up at an outside hospital with LP, CT brain, CT, MRI and no etiology was determined. Patient recovered fully following PT and had been doing well until 3 weeks ago. No past medical history on file. No past surgical history on file. No family history on file. Social History Tobacco Use - Smoking status: Not on file Substance and Sexual Activity - Alcohol use: Not on file - Drug use: Not on file - Sexual activity: Not on file ALLERGIES No Known Allergies Review of Systems Constitutional: Negative for chills and fever. HENT: Negative. Negative for trouble swallowing. Respiratory: Negative. Cardiovascular: Negative. Gastrointestinal: Positive for nausea and vomiting. Negative for abdominal pain. Genitourinary: Positive for decreased urine volume. Negative for dysuria. Musculoskeletal: Positive for gait problem. Negative for back pain. Skin: Negative. Neurological: Positive for weakness. Negative for dizziness, tremors, seizures, syncope, facial asymmetry, speech difficulty, light-headedness and headaches. Hematological: Negative. Psychiatric/Behavioral: Negative for behavioral problems. Physical Exam BP 119/84 Pulse 116 Temp (Src) 97.9 (Oral) Resp 16 Ht 5' 6 (1.68m) Wt 115 lb (52.2kg) SpO2 98% BMI 18.57 kg/(m2). O2 Therapy: Room Air Physical Exam Constitutional: She appears well-developed and well-nourished. No distress. sitting in WC, no apparent distress HENT: Head: Normocephalic and atraumatic. Eyes: Pupils are equal, round, and reactive to light. Conjunctivae and EOM are normal. Neck: Neck supple. Cardiovascular: Normal rate, regular rhythm and normal heart sounds. Exam reveals no gallop and no friction rub. No murmur heard. Pulmonary/Chest: Effort normal and breath sounds normal. No respiratory distress. Abdominal: Soft. She exhibits no distension and no mass. There is no tenderness. There is no rebound and no guarding. Neurological: She is alert. No cranial nerve deficit. Coordination (performs finger to nose with erratic movement bilat) abnormal. GCS eye subscore is 4. GCS verbal subscore is 5. GCS motor subscore is 6. Muscle strength LE: R L Hip flex: 4/5 4/5 Knee Ext 4/5 4/5 Knee Flex 4/5 4/5 Ext HL 4/5 4/5 Unable to stand to assess Rhomberg and gait Skin: Skin is warm and dry. She is not diaphoretic. Psychiatric: She has a normal mood and affect. Nursing note and vitals reviewed. Diagnostic Testing ED Labs Ordered and Reviewed - No data to display Procedures ED Course / Clinical Impression Clinical Impressions as of May 08 31 Nausea and vomiting, intractability of vomiting not specified, unspecified vomiting type Hypokalemia Decreased activities of daily living (ADL) Weakness Paresthesias MDM / Disposition / Plan 29 year old female presents with nausea, vomiting, bilateral hand and foot paresthesias, and inability to stand unassisted. Symptoms started 3 weeks ago and have gradually progressed. She had a similar episode of unknown etiology, 8 months ago, that resolved completely with physical therapy. MRI brain on 08/31/18 at [facility] was significant only for nonspecific Mild white matter signal abnormality and CSF fluid was reported by patient as being normal . Today patient is unable to stand unassisted but muscle strength through out is 4/5, and she has bilateral paresthesias of hands and feet. Symptoms and exam findings are more consistent with a systemic etiology rather than a focal neuro etiology. She has had no recent illness or fever to suggest Guillain-Ulysses Syndrome. Urine tox is negative. Patient treated with K Dur for mild hypokalemia, and started on cephalexin for pyuria pending urine culture. EKG: sinus rhythm, rate 98, QT prolonged. Uhcg negative CK: 84 UA significant for pyuria with wbc 11-25 CBC: No leukocytosis, no evidence of blood loss anemia CMP significant only for mild hypokalemia Lipase: Normal Blood cultures pending Urine cultures pending Heavy metal screen pending Discussed with Dr Frank at [facility], who accepted patient for transfer and admit to general medicine service. - OARRS reviewed - significant for suboxone therapy SIGNATURE: LENORA Reynaga (Lenora) Jv 05/08/19 0016 Lon Trevino) Jv 05/08/19 0031 Attending Note I have personally performed a face to face assessment of the patient and have reviewed the PA/[employer] CUST[employer]ER [employer]ICE [employer]OCIATE note. My vu findings include: 29 yo with history of polysubstance abuse who presents with nausea/vomiting x 2 weeks, weight loss (unable to quantify) and peripheral neuropathy with tingling in bilateral lower extremities. Had similar episode end of 2018 with paresthesias, but subacute GI symptoms are brand new. Hemodynamically stable, no obvious electrolyte abnormalities. Symmetric strength. Given duration (several weeks) doubt acute CVA. With decreased PO intake and N/V will need admission for further work-up. Signature: Felix Resendiz MD Date: 05/09/2019 Time: 4:35 PM Felix Resendiz 05/09/19 1637 Normal [facility] [employer] Lenn[employer]aun 05-07 Arsenic Blood <10.0 Normal 0.0-12.0 [facility] Comment on above: Result Comment: (NOT E) INTERPRETIVE INFORMATION: Arsenic, Blood Elevated results may be due to skin or collection-related contamination, including the use of a noncertified metal-free collection/transport tube. If contamination concerns exist due to elevated levels of blood arsenic, confirmation with a second specimen collected in a certified metal-free tube is recommended. Potentially toxic ranges for blood arsenic: Greater than or equal to 600 ug/L. Blood arsenic is for the detection of recent exposure poisoning only. Blood arsenic levels in healthy subjects vary considerably with exposure to arsenic in the diet and the environment. A 24-hour urine arsenic is useful for the detection of chronic exposure. Test developed and characteristics determined by [facility]. See Compliance Statement B: [employer] Performed By: #### C BENJAMIN, CMP #### [facility] [address] [place] [id number] Lead Blood 2.8 ug/dL Normal 0.0-4.9 [facility] Comment on above: Result Comment: (NOT E) INTERPRETIVE INFORMATION: Lead, Blood (Venous) Elevated results may be due to skin or collection-related contamination, including the use of a noncertified lead-free tube. If contamination concerns exist due to elevated levels of blood lead, confirmation with a second specimen collected in a certified lead-free tube is recommended. Information sources for reference intervals and interpretive comments include the CDC Response to the 2012 Advisory Committee on Childhood Lead Poisoning Prevention Report and the Recommendations for Medical Management of Adult Lead Exposure, Environmental Health Perspectives, 2007. Thresholds and time intervals for retesting, medical evaluation, and response vary by state and regulatory body. Contact your State Department of Health and/or applicable regulatory agency for specific guidance on medical management recommendations. Age Concentration Comment All ages 5-9.9 ug/dL Adverse health effects are possible, particularly in children under 6 years of age and women. Discuss health risks associated with continued lead exposure. For children and women who are or may become , reduce lead exposure. All ages 10-19.9 ug/dL Reduced lead exposure and increased biological monitoring are recommended. All ages 20-69.9 ug/dL Removal from lead exposure and prompt medical evaluation are recommended. Consider chelation therapy when concentrations exceed 50 ug/dL and symptoms of lead toxicity are present. Less than 19 Greater than Critical. Immediate medical years of age 44.9 ug/dL evaluation is recommended. Consider chelation therapy when symptoms of lead toxicity are present. Greater than 19 Greater than Critical. Immediate medical years of age 69.9 ug/dL evaluation is recommended Consider chelation therapy when symptoms of lead toxicity are present. Test developed and characteristics determined by [facility]. See Compliance Statement B: [employer] Performed By: #### C EVERARDOF, CMP #### [facility] [address] [place], [place] [address] Mercury, Blood <2.5 Normal 0.0-10.0 [facility] Comment on above: Result Comment: (NOT E) INTERPRETIVE INFORMATION: Mercury, Blood Elevated results may be due to skin or collection-related contamination, including the use of a noncertified metal-free collection/transport tube. If contamination concerns exist due to elevated levels of blood mercury, confirmation with a second specimen collected in a certified metal-free tube is recommended. Blood mercury levels predominantly reflect recent exposure and are most useful in the diagnosis of acute poisoning as blood mercury concentrations rise sharply and fall quickly over several days after ingestion. Blood concentrations in unexposed individuals rarely exceed 20 ug/L. The provided reference interval relates to inorganic mercury concentrations. Dietary and non-occupational exposure to organic mercury forms may contribute to an elevated total mercury result. Clinical presentation after toxic exposure to organic mercury may include dysarthria, ataxia and constricted vision jennings with mercury blood concentrations from 20 to 50 ug/L. Test developed and characteristics determined by [facility]. See Compliance Statement B: [employer] Performed by [facility], [address] [place] [id number] [email or web address], George Arguello MD, Lab. Director Performed By: #### C BCSALVADOR, [facility] #### [facility] [address] [place], [place] [id number] Lipaseon 05-07-2019 Lipase [Catalytic activity/Vol] 23 U/L Normal 16-61 [facility] Comment on above: Performed By: #### L IPA #### [facility] [address] [place], [place] [id number] Vital Signs Date Time Vital Sign Value Performing Clinician [facility] 09-16-2023 12:18-0500 Diastolic blood pressure 74 mm[Hg] MD Carl Child Work Phone: [facility] 09-16-2023 12:18-0500 Heart rate 84 /min MD Carl Child Work Phone: [facility] 09-16-2023 12:18-0500 Respiratory rate 16 /min MD Carl Child Work Phone: [facility] 09-16-2023 12:18-0500 SaO2% (BldA) [Mass fraction] 98 % MD Carl Child Work Phone: [facility] 09-16-2023 12:18-0500 Systolic blood pressure 122 mm[Hg] MD Carl Child Work Phone: [facility] 09-16-2023 12:00-0500 Body temperature 97.9 [degF] MD Carl Child Work Phone: [facility] 09-16-2023 06:00-0500 Body weight 60 kg MD Carl Child Work Phone: [facility] 09-13-2023 13:19-0500 Body height 167.64 cm MD Carl Child Work Phone: [facility] 09-11-2023 20:48-0500 Diastolic blood pressure 74 mm[Hg] MD Carl Child Work Phone: [facility] 09-11-2023 20:48-0500 Heart rate 84 /min MD Carl Child Work Phone: [facility] 09-11-2023 20:48-0500 Respiratory rate 18 /min MD Carl Child Work Phone: [facility] 09-11-2023 20:48-0500 SaO2% (BldA) [Mass fraction] 98 % MD Carl Child Work Phone: [facility] 09-11-2023 20:48-0500 Systolic blood pressure 108 mm[Hg] MD Carl Child Work Phone: [facility] 09-11-2023 17:06-0500 Body height 167.64 cm MD Carl Child Work Phone: [facility] 09-11-2023 17:06-0500 Body weight 52.7 kg MD Carl Child Work Phone: [facility] 09-11-2023 17:04-0500 Body temperature 98.9 [degF] MD Carl Child Work Phone: [facility] 12-16-2021 10:43-0500 Body height 167.64 cm MD Carl Child Work Phone: [facility] 12-16-2021 10:43-0500 Body mass index (BMI) [Ratio] 20.4 kg/m2 MD Carl Child Work Phone: [facility] 12-16-2021 10:43-0500 Body temperature 98.8 [degF] MD Carl Child Work Phone: [facility] 12-16-2021 10:43-0500 Body weight 57.4 kg MD Carl Child Work Phone: [facility] 12-16-2021 10:43-0500 Diastolic blood pressure 56 mm[Hg] MD Carl Child Work Phone: [facility] 12-16-2021 10:43-0500 Heart rate 102 /min MD Carl Child Work Phone: [facility] 12-16-2021 10:43-0500 Respiratory rate 18 /min MD Carl Child Work Phone: [facility] 12-16-2021 10:43-0500 SaO2% (BldA) [Mass fraction] 98 % MD Carl Child Work Phone: [facility] 12-16-2021 10:43-0500 Systolic blood pressure 123 mm[Hg] MD Carl Child Work Phone: [facility] Encounters Encounter Date Encounter Type Care Provider Facility Start: 09-11-2023 End: 09-16-2023 Evaluation and management of inpatient [facility] Facility:[facility] Start: 09-11-2023 End: 09-16-2023 Evaluation and management of inpatient MD Carl Child Work Phone: [facility] Work Phone: Start: 06-11-2023 End: 07-30-2023 ambulatory UNKNOWN PROVIDER Facility[facility] Start: 12-16-2021 End: 12-16-2021 Emergency department patient visit MD Carl Child Work Phone: [facility] Start: 06-16-2021 End: 06-16-2021 ambulatory ONI CARMICHAEL Facility:[facility] Start: 07-04-2020 Encounter for genera l adult medical examination without abnormal findings DR CARL CHILD [facility] Start: 07-02-2020 End: 07-03-2020 ambulatory [facility] Facility:[facility] Start: 07-01-2020 End: 07-02-[address] CARL CHILD Facility:[facility] Start: 07-01-2020 End: 07-02-2020 Encounter for general adult medical examination without abnormal findings DR CARL CHILD Facility:[facility] Procedures Date Procedure Procedure Detail Performing Clinician Start: 09-11-2023 CT of head without contrast MD Carl Child Work Phone: Start: 09-11-2023 Urine culture MD Demarcus Child Work Phone: Plan of Treatment Date Care Activity Detail Author Start: 09-16-2023 [facility] Start: 09-12-2023 [facility] Start: 09-11-2023 Consultation [facility] Start: 09-11-2023 Hospital admission [facility] Start: 09-11-2023 [facility] Start: 09-11-2023 CT of head without contrast CT head/brain wo con [facility] Start: 09-11-2023 CT Unspecified body region WO contrast [facility] Start: 09-11-2023 Bacteria identified in Urine by Culture [facility] Albumin/Globulin ratio [facility] Anion gap measurement [facility] Basophils [#/volume] in Blood by Automated count [facility] Basophils/100 leukoc ytes in Blood by Automated count [facility] Eosinophils [#/volum e] in Blood [facility] Eosinophils/100 leuk ocytes in Blood by Automated count [facility] Erythrocyte distribu tion width [Ratio] by Automated count [facility] Erythrocytes [#/volu me] in Blood [facility] Globulin [Mass/volum e] in Serum [facility] Hematocrit [Volume Fraction] of Blood [facility] Hemoglobin [Mass/vol ume] in Blood [facility] INR in Platelet poor plasma by Coagulation assay [facility] Leukocytes [#/volume ] corrected for nucleated erythrocytes in Blood by Automated coun [facility] Leukocytes [#/volume ] in Blood [facility] Lymphocytes [#/volum e] in Blood by Automated count [facility] Lymphocytes/100 leuk ocytes in Blood by Automated count [facility] MCH [Entitic mass] b y Automated count [facility] MCHC [Mass/volume] b y Automated count [facility] MCV [Entitic volume] by Automated count [facility] Monocytes [#/volume] in Blood by Automated count [facility] Monocytes/100 leukoc ytes in Blood by Automated count [facility] Neutrophils [#/volum e] in Blood by Automated count [facility] Neutrophils/100 leuk ocytes in Blood by Automated count [facility] Nucleated erythrocyt es [Presence] in Blood by Automated count [facility] Patient Education [facility] Work Phone: Patient referral [facility] Work Phone: Platelet mean volume [Entitic volume] in Blood by Automated count [facility] Platelets [#/volume] in Blood [facility] Prothrombin time (PT) [facility] Payers Date Payer Category Payer Medicaid [id number] 2023 Self-pay [id number] 2023 Unknown 1988 Unknown [id number] [id number] 1988 Unknown [id number] [id number] 1988 Unknown [id number] [id number] [id number] 1988 Unknown [id number] [id number] 1961 Unknown [id number] Medicaid [employer] [id number] Unknown [id number] Social History Date Type Detail Facility Start: 12-16-2021 End: 09-11-2023 Tobacco smoking status NHIS Smoker (finding) [facility] Start: 1990 Sex Assigned At Female F [facility] Goals Date Patient Goal Desired Activity /State Functional Status Date Assessment Result Facility 09-16-2023 Functional status Patient at Baseline [facility] Work Phone: Mental Status Date Assessment Result Facility 09-16-2023 Cognitive function Cognitive Sta tus Patient at Baseline [facility] Work Phone: Clinical Notes 09-11-2023 to 09-15-2023 Note Date & Type Note Facility 09-15-2023 Progress note Note Date/Time September 15, 2023 3:35pm [facility] [address] [place] [address] Hospitalist Progress Note Signed Patient: Karyn Estes MR#: [id number] : 1990 Acct:[id number] Age/Sex: 33 / F Adm Date: 3 Loc: Room: 6B9691-2 Type: ADM IN Attending Dr: Tyrone Barron MD Copies to: ~ Date of Service: 09/15/2023 Subjective Subjective Narrative: ======== Attending note: I saw the patient personally on the day of encounter. I reviewed the relevant history, and performed the vu elements of the physical examination. I reviewedthe relevant laboratory workup, radiological studies and the current treatment plan. I formulated the plan of care and confirmed it with the resident/student/CHILD AND ADOLESCENT PSYCHIATRIST. ======== Ms. Estes says she is feeling okay today but very tired. She denies abdominal pain, tremors, hallucinations, N/V or diarrhea. Per nursing, she was restless again last night and had to be given 14 Ativan per [facility] protocol. She has been resting comfortably since this morning Exam Physical Exam Vital Signs: Temp Pulse Resp BP Pulse Ox O2 Del Method 98.3 F 58 L 12 108/66 99 Room Air 09/15/23 00:00 09/15/23 08:00 09/15/23 08:00 09/15/23 08:00 09/15/23 08:00 09/15/23 08:00 Narrative: General: Not in any acute distress. Skin: Intact Extremities: Normal to inspection. No erythema, edema, or lesions. HEENT: Head normocephalic, atraumatic, face symmetrical. Pulm: Breathing normally without excessive effort. LCTAB. Cardio: HRRR no MRG Abdomen: Normal inspection. Soft and nontender to palpation. BSx4. Normoactive. Musculoskeletal: Moves all extremities. Neuro: Patient alert, oriented x3. Responds to questions appropriately. Speechand movement normal. Objective Lab Results 09/14/23 08:58 09/14/23 08:58 Meds Allergies and Active Meds Allergies No Known Allergies Allergy (Verified 09/11/23 17:06) Active Meds: Active Medications Generic Name Dose Route Start Last Admin Trade Name Freq PRN Reason Stop Dose Admin Acetaminophen 650 mg 09/14/23 10:40 09/14/23 18:55 Acetaminophen 325 Mg Tablet PO 09/13/24 10:39 650 mg Q6H PRN Administration Pain Bupropion HCl 300 mg 09/13/23 09:00 09/14/23 09:32 Bupropion 300 Mg Tab.Er.24h PO 09/12/24 08:59 300 mg DAILY VIKTOR Administration Enoxaparin Sodium 40 mg 09/12/23 10:00 09/14/23 09:33 Enoxaparin 40 Mg/0.4 Ml Syringe SUBCUT 09/11/24 09:59 40 mg DAILY@1000 VIKTOR Administration Escitalopram Oxalate 5 mg 09/13/23 12:00 09/14/23 09:32 Escitalopram 5 Mg Tablet PO 09/12/24 11:59 5 mg DAILY VIKTOR Administration Dextrose/Sodium Chloride 1,000 mls @ 85 mls/hr 09/11/23 21:45 09/15/23 09:21 5 % Dextrose-0.9 % Nacl IV 09/10/24 21:44 Not Given .[id number] VIKTOR Dexmedetomidine HCl 400 mcg/ 100 mls @ 2.72 mls/hr 09/12/23 20:15 09/15/23 05:58 Dextrose IV 09/11/24 14:59 0.9 mcg/kg/hr .Q24H VIKTOR 12.24 mls/hr Titration Protocol 0.2 MCG/KG/HR Lorazepam 0 mg 09/11/23 21:33 09/15/23 03:23 Lorazepam 1 Mg Tablet PO 03/09/24 21:32 4 mg PROTOCOL PRN Administration Alcohol Withdrawal Protocol Lorazepam 0 mg 09/11/23 21:33 09/15/23 01:23 Lorazepam 2 Mg/Ml Vial IV-PUSH 03/09/24 21:32 2 mg PROTOCOL PRN Administration Alcohol Withdrawal Protocol Nicotine 1 each 09/12/23 13:39 09/14/23 09:32 Nicotine Patch 21 Mg/24hr 1 Each Patch.Td24 TRANSDERML 10/23/23 09:01 1 each DAILY VIKTOR Administration Phenobarbital 130 mg 09/13/23 13:04 09/15/23 02:24 Phenobarbital 65 Mg/Ml Vial IV-PUSH 03/11/24 13:03 130 mg Q8H PRN Administration Alcohol Withdrawal Sodium Chloride 0 ml 09/11/23 17:04 09/11/23 21:36 Sodium Chloride 0.9 % 10 Ml Syringe IV-PUSH 09/10/24 17:03 20 ml PRN PRN Administration Flush Thiamine HCl 100 mg 09/15/23 09:00 Thiamine 100 Mg Tablet PO 09/14/24 08:59 DAILY VIKTOR A&P - Hospitalist Assessment/Plan (1) Alcohol withdrawal: (2) Seizure: (3) Bruise of face: (4) Depression: (5) Anxiety: Plan Alcohol withdrawal Patient began having visual hallucinations 09/12. [place] slipped after attempting to leave AMA. Continued hallucinations, confusion, restlessness. -Continue CIWA protocol and thiamine supplementation. -CO2 monitor due to decreased responsiveness/periods of apnea. Seizure/bruise Patient presented to ER from detox center due to concern for withdrawal seizure. Bruise on right temporal area. -Head CT revealed no acute intracranial trauma. Anxiety/depression-chronic -continue home medications DVT prophylaxis: Lovenox Documented By: Tyrone Barron MD 09/15/23 0924 Signed By: <Electronically signed by Tyrone Barron MD> 09/15/23 3815 [facility] Work Phone: 1(103) 932-445111-15-2023 Progress note Author Tyrone Barron [facility] September 14, 2023 2:13pm Note Date/Time September 14, 2023 2:13pm [facility] [address] [place] [address] Hospitalist Progress Note Signed Patient: Karyn Estes MR#: [id number] : 1990 Acct:[id number] Age/Sex: 33 / F Adm Date: 3 Loc: Room: [address] [place] [address] Type: ADM IN Attending Dr: Tyrone Barron MD Copies to: ~ Date of Service: 09/14/2023 Subjective Subjective Narrative: Attending note: I saw the patient personally on the day of encounter. I reviewed the relevant history, and performed the vu elements of the physical examination. I reviewedthe relevant laboratory workup, radiological studies and the current treatment plan. I formulated the plan of care and confirmed it with the resident/student/CHILD AND ADOLESCENT PSYCHIATRIST. Patient is resting comfortably in bed. Per nursing, she had a restless night and was having hallucinations. She had to be redirected frequently. She was given Ativan and phenobarbital and is currently sleeping. Exam Physical Exam Vital Signs: Temp Pulse Resp BP Pulse Ox O2 Del Method 97.9 F 55 L 13 111/74 98 Room Air 09/14/23 03:48 09/14/23 09:00 09/14/23 09:00 09/14/23 09:00 09/14/23 06:52 09/14/23 09:00 Narrative: General: Hypersomnolent. Resting comfortably in bed. Skin: Intact Extremities: Normal to inspection. No erythema, edema, or lesions. HEENT: Head normocephalic, atraumatic, face symmetrical. Pulm: Breathing without excessive effort. Short periods of apnea. Cardio: Heart regular rate and rhythm. Musculoskeletal: Moves all extremities. Neuro: Patient minimally responsive. Does awaken to sternal rub. Objective Lab Results 09/14/23 08:58 09/14/23 08:58 Microbiology Results Microbiology 09/11/23 18:37 Urine - Clean-Voided Midstream Urine Culture - Final No Growth 2 Days Meds Allergies and Active Meds Allergies No Known Allergies Allergy (Verified 09/11/23 17:06) Active Meds: Active Medications Generic Name Dose Route Start Last Admin Trade Name Freq PRN Reason Stop Dose Admin Bupropion HCl 300 mg 09/13/23 09:00 09/14/23 09:32 Bupropion 300 Mg Tab.Er.24h PO 09/12/24 08:59 300 mg DAILY VIKTOR Administration Enoxaparin Sodium 40 mg 09/12/23 10:00 09/14/23 09:33 Enoxaparin 40 Mg/0.4 Ml Syringe SUBCUT 09/11/24 09:59 40 mg DAILY@1000 VIKTOR Administration Escitalopram Oxalate 5 mg 09/13/23 12:00 09/14/23 09:32 Escitalopram 5 Mg Tablet PO 09/12/24 11:59 5 mg DAILY VIKTOR Administration Dextrose/Sodium Chloride 1,000 mls @ 85 mls/hr 09/11/23 21:45 09/14/23 08:35 5 % Dextrose-0.9 % Nacl IV 09/10/24 21:44 Not Given .[id number] VIKTOR Dexmedetomidine HCl 400 mcg/ 100 mls @ 2.72 mls/hr 09/12/23 20:15 09/14/23 08:35 Dextrose IV 09/11/24 14:59 1.5 mcg/kg/hr .Q24H VIKTOR 20.4 mls/hr Titration Protocol 0.2 MCG/KG/HR Lorazepam 0 mg 09/11/23 21:33 09/14/23 04:07 Lorazepam 1 Mg Tablet PO 03/09/24 21:32 4 mg PROTOCOL PRN Administration Alcohol Withdrawal Protocol Lorazepam 0 mg 09/11/23 21:33 09/12/23 13:20 Lorazepam 2 Mg/Ml Vial IV-PUSH 03/09/24 21:32 4 mg PROTOCOL PRN Administration Alcohol Withdrawal Protocol Nicotine 1 each 09/12/23 13:39 09/14/23 09:32 Nicotine Patch 21 Mg/24hr 1 Each Patch.Td24 TRANSDERML 10/23/23 09:01 1 each DAILY VIKTOR Administration Phenobarbital 130 mg 09/13/23 13:04 09/14/23 05:54 Phenobarbital 65 Mg/Ml Vial IV-PUSH 03/11/24 13:03 130 mg Q8H PRN Administration Alcohol Withdrawal Sodium Chloride 0 ml 09/11/23 17:04 09/11/23 21:36 Sodium Chloride 0.9 % 10 Ml Syringe IV-PUSH 09/10/24 17:03 20 ml PRN PRN Administration Flush Thiamine HCl 100 mg 09/12/23 09:00 09/13/23 09:15 Thiamine 200 Mg/2 Ml Vial IV-PUSH 09/11/24 08:59 100 mg DAILY VIKTOR Administration A&P - Hospitalist Assessment/Plan (1) Alcohol withdrawal: (2) Seizure: (3) Bruise of face: (4) Depression: (5) Anxiety: Plan Alcohol withdrawal Patient began having visual hallucinations 09/12. [place] slipped after attempting to leave AMA. Continued hallucinations, confusion, restlessness. -Continue CIWA protocol and thiamine supplementation. -CO2 monitor due to decreased responsiveness/periods of apnea. Seizure/bruise Patient presented to ER from detox center due to concern for withdrawal seizure. Bruise on right temporal area. -Head CT revealed no acute intracranial trauma. Anxiety/depression-chronic -continue home medications DVT prophylaxis: Lovenox Documented By: Tyrone Barron MD 09/14/23 0935 Signed By: <Electronically signed by Tyrone Barron MD> 09/14/23 1419 [facility] Work Phone: 1(330) 876-325211-14-2023 Progress note Author Tyrone Barron [facility] September 13, 2023 11:41am Note Date/Time September 13, 2023 11:41am [facility] [address] [place] [address] Hospitalist Progress Note Signed Patient: Karyn Estes MR#: [id number] : 1990 Acct:[id number] Age/Sex: 33 / F Adm Date: 3 Loc: Room: [address] [place] [address] Type: ADM IN Attending Dr: Tyrone Barron MD Copies to: ~ Date of Service: 09/13/2023 Subjective Subjective Narrative: Attending note: I saw the patient personally on the day of encounter. I reviewed the relevant history, and performed the vu elements of the physical examination. I reviewedthe relevant laboratory workup, radiological studies and the current treatment plan. I formulated the plan of care and confirmed it with the resident/student/CHILD AND ADOLESCENT PSYCHIATRIST. Ms. Estes is feeling much better today. She was previously having hallucinations and seeing people out of the corner of her eye. She also reported talking to people who were not there. She was pink slipped yesterday after trying to leave AMA during this episode. She denies any current SI, HI, AVH. Exam Physical Exam Vital Signs: Temp Pulse Resp BP Pulse Ox O2 Del Method 97.4 F L 69 22 115/82 99 Room Air 09/13/23 08:00 09/13/23 10:27 09/13/23 10:00 09/13/23 10:27 09/13/23 10:00 09/13/23 10:00 Narrative: General: Not in any acute distress. Slight tremor. Skin: Intact Extremities: Normal to inspection. No erythema, edema, or lesions. HEENT: Head normocephalic, atraumatic, face symmetrical. Pulm: Breathing normally without excessive effort. LCTAB. Cardio: HRRR no MRG Abdomen: Normal inspection. Soft and nontender to palpation. BSx4. Normoactive. Musculoskeletal: Moves all extremities. Neuro: Patient alert, oriented x3. Speech and movement normal Objective Lab Results 09/12/23 04:15 09/12/23 04:15 Microbiology Results Microbiology 09/11/23 18:37 Urine - Clean-Voided Midstream Urine Culture - Final No Growth 2 Days Meds Allergies and Active Meds Allergies No Known Allergies Allergy (Verified 09/11/23 17:06) Active Meds: Active Medications Generic Name Dose Route Start Last Admin Trade Name Dominga PRN Reason Stop Dose Admin Bupropion HCl 300 mg 09/13/23 09:00 09/13/23 08:27 Bupropion 300 Mg Tab.Er.24h PO 09/12/24 08:59 300 mg DAILY VIKTOR Administration Enoxaparin Sodium 40 mg 09/12/23 10:00 09/13/23 09:12 Enoxaparin 40 Mg/0.4 Ml Syringe SUBCUT 09/11/24 09:59 Not Given DAILY@1000 VIKTOR Escitalopram Oxalate 5 mg 09/13/23 12:00 Escitalopram 5 Mg Tablet PO 09/12/24 11:59 DAILY VIKTOR Dextrose/Sodium Chloride 1,000 mls @ 85 mls/hr 09/11/23 21:45 09/13/23 08:28 5 % Dextrose-0.9 % Nacl IV 09/10/24 21:44 85 mls/hr .[id number] VIKTOR Administration Dexmedetomidine HCl 400 mcg/ 100 mls @ 2.72 mls/hr 09/12/23 20:15 09/13/23 10:27 Dextrose IV 09/11/24 14:59 1.5 mcg/kg/hr .Q24H VIKTOR 20.4 mls/hr Administration Protocol 0.2 MCG/KG/HR Lorazepam 0 mg 09/11/23 21:33 09/13/23 10:57 Lorazepam 1 Mg Tablet PO 03/09/24 21:32 4 mg PROTOCOL PRN Administration Alcohol Withdrawal Protocol Lorazepam 0 mg 09/11/23 21:33 09/12/23 13:20 Lorazepam 2 Mg/Ml Vial IV-PUSH 03/09/24 21:32 4 mg PROTOCOL PRN Administration Alcohol Withdrawal Protocol Nicotine 1 each 09/12/23 13:39 09/13/23 08:27 Nicotine Patch 21 Mg/24hr 1 Each Patch.Td24 TRANSDERML 10/23/23 09:01 1 each DAILY VIKTOR Administration Sodium Chloride 0 ml 09/11/23 17:04 09/11/23 21:36 Sodium Chloride 0.9 % 10 Ml Syringe IV-PUSH 09/10/24 17:03 20 ml PRN PRN Administration Flush Thiamine HCl 100 mg 09/12/23 09:00 09/13/23 09:15 Thiamine 200 Mg/2 Ml Vial IV-PUSH 09/11/24 08:59 100 mg DAILY VIKTOR Administration A&P - Hospitalist Assessment/Plan (1) Alcohol withdrawal: (2) Seizure: (3) Bruise of face: (4) Depression: (5) Anxiety: Plan Alcohol withdrawal Patient began having visual hallucinations yesterday afternoon. [place] slipped after attempting to leave AMA. -Continue CIWA protocol and thiamine supplementation. Seizure/bruise Patient presented to ER from detox center due to concern for withdrawal seizure. Bruise on right temporal area. -Head CT revealed no acute intracranial trauma. Anxiety/depression-chronic -continue home medications DVT prophylaxis: Lovenox Documented By: Tyrone Barron MD 09/13/231131 Signed By: <Electronically signed by Tyrone Barron MD> 09/13/23 1141 [facility] Work Phone: 1(591) 711-599311-14-2023 Progress note Author Tyrone Barron [facility] September 13, 2023 11:35am Note Date/Time September 12, 2023 12:38pm [facility] [address] [place] [address] Hospitalist Progress Note Signed Patient: Karyn Estes MR#: [id number] : 1990 Acct:[id number] Age/Sex: 33 / F Adm Date: 3 Loc: Room: 0F2015-8 Type: ADM IN Attending Dr: Tyrone Barron MD Copies to: ~ Date of Service: 09/12/2023 Subjective Subjective Narrative: Attending note: I saw the patient personally on the day of encounter. I reviewed the relevant history, and performed the vu elements of the physical examination. I reviewedthe relevant laboratory workup, radiological studies and the current treatment plan. I formulated the plan of care and confirmed it with the resident/student/CHILD AND ADOLESCENT PSYCHIATRIST. Patient is resting comfortably in bed this morning during questioning and examination. She notes that she has not developed any new onset signs or symptoms overnight. She notes that before detox, she would drink 12 beers a day and about 2 shots of hard liquor per day. Subsequently she went to detox and finished. She adds on questioning today that she drank some alcohol after finishing detox before her current hospitalization here. Patient has no furtherquestions or concerns at this time. Exam Physical Exam Vital Signs: Temp Pulse Resp BP Pulse Ox O2 Del Method 97.6 F 82 16 103/61 99 Room Air 09/12/23 08:00 09/12/23 11:00 09/12/23 11:00 09/12/23 09:00 09/12/23 10:00 09/12/23 11:00 Narrative: General: A&Ox4, no acute distress HEENT: head atraumatic, normocephalic, moist mucous membranes Neck: supple no masses, no lymphadenopathy CVS: regular rate and rhythm, no murmurs or gallops Respiratory: clear to auscultation bilaterally, no wheezing or crackles, symmetric expansion GI: soft, nondistended, nontender, positive bowel sounds with no organomegaly Extremity: moves all extremities, no restrictions of movements, no calf tenderness, no edema Neuro: Moves all extremities in all planes of motion. Skin: dry, intact no rashes or lesions Psych: Cooperative, congruent mood, appropriate affect Objective Lab Results 09/12/23 04:15 09/12/23 04:15 Microbiology Results Microbiology 09/11/23 18:37 Urine - Clean-Voided Midstream Urine Culture - Preliminary No Growth 1 Day Meds Allergies and Active Meds Allergies No Known Allergies Allergy (Verified 09/11/23 17:06) Active Meds: Active Medications Generic Name Dose Route Start Last Admin Trade Name Freq PRN Reason Stop Dose Admin Enoxaparin Sodium 40 mg 09/12/23 10:00 09/12/23 09:39 Enoxaparin 40 Mg/0.4 Ml Syringe SUBCUT 09/11/24 09:59 Not Given DAILY@1000 VIKTOR Dextrose/Sodium Chloride 1,000 mls @ 85 mls/hr 09/11/23 21:45 09/11/23 22:19 5 % Dextrose-0.9 % Nacl IV 09/10/24 21:44 85 mls/hr .[id number] VIKTOR Administration Lorazepam 0 mg 09/11/23 21:33 09/12/23 03:22 Lorazepam 1 Mg Tablet PO 03/09/24 21:32 3 mg PROTOCOL PRN Administration Alcohol Withdrawal Protocol Lorazepam 0 mg 09/11/23 21:33 09/12/23 10:44 Lorazepam 2 Mg/Ml Vial IV-PUSH 03/09/24 21:32 2 mg PROTOCOL PRN Administration Alcohol Withdrawal Protocol Sodium Chloride 0 ml 09/11/23 17:04 09/11/23 21:36 Sodium Chloride 0.9 % 10 Ml Syringe IV-PUSH 09/10/24 17:03 20 ml PRN PRN Administration Flush Thiamine HCl 100 mg 09/12/23 09:00 09/12/23 09:39 Thiamine 200 Mg/2 Ml Vial IV-PUSH 09/11/24 08:59 100 mg DAILY VIKTOR Administration A&P - Hospitalist Assessment/Plan (1) Seizure: (2) Alcohol withdrawal: Plan Patient appears slightly tremulous during questioning examination which is likely from acute alcohol withdrawal. Due to the previous history and her current examination, she is at high risk of developing severe alcohol withdrawal leading to seizure and DT. Continue CIWA protocol and thiamine supplement. Continue DVT prophylaxis. Head CT revealed no acute intracranial trauma. Head CT was unremarkable. Documented By: Ivan Hernandez DO, RES 09/12/23 1231 Signed By: <Electronically signed by DO SYDNI Hernandez> 09/12/23 1238 <Electronically signed by Tyrone Barron MD> 09/13/23 1135 [facility] Work Phone: [phone] Progress note Author Gregory Raya [facility] September 12, 2023 10:32am Note Date/Time September 12, 2023 10:33am [facility] [address] [place] [id number] Progress Note Signed Patient: Karyn Estes MR#: [id number] : 1990 Acct:[id number] Age/Sex: 33 / F Adm Date: 3 Loc: Room: [address] [place] [address] Type: ADM IN Attending Dr: Tyrone Barron MD Copies to: ~ Date of Service: 09/12/2023 Progress Narrative Note PROGRESS NOTE Progress Note: Discussed on critical care rounds this morning, admitted with alcohol withdrawalseizures from detox center, no issues since admission to ICU, no witnessed seizures, no significant delirium or psychosis, managed by as needed benzodiazepine only, probably can be transferred out of ICU soon I will follow only as needed Documented By: Gregory Raya MD 09/12/231031 Signed By: <Electronically signed by Gregory Raya MD> 09/12/23 1032 [facility] Work Phone: 1(127) 567-720811-12-2023 History and physical note Author Gem Velasco [facility] September 11, 2023 9:33pm Note Date/Time September 11, 2023 9:25pm [facility] [address] [place] [address] Hospitalist H&P Signed Patient: Karyn Estes MR#: [id number] : 1990 Acct:[id number] Age/Sex: 33 / F Adm Date: 3 Loc: 4C Room: [address] [place] [address] Type: ADM IN Attending Dr: Gem Velasco MD Copies to: MD Gem Malloy MD~ HPI DATE OF EXAMINATION: 09/11/23 CHIEF COMPLAINT: Concern for withdrawal seizure. HISTORY OF PRESENT ILLNESS: Patient is a 33-year-old female with history of alcohol abuse, she was sent to the emergency room by EMS from [facility] with concern for withdrawal seizure. Apparently patient was found to have bruise on the right side of her forehead and she does have history of withdrawal seizure in the past. As per the documentation her last drink was on Tuesday. In the ER her labs did not show anysignificant abnormality other than low magnesium which is being replaced. CT head without acute abnormality with pending final report. On examination she appears tremulous and appears confused. She mentioned having seizures in the past due to alcohol withdrawal and then in the middle of the conversation she was started talking about calculator. No family member present to provide further history. Looking through her previous record she does have history of IV drug abuse and was on Suboxone as well as gestational diabetes. Review of Systems Review of Systems Unobtainable due to mental status PENDING SALE TO [facility] Medical History Anxiety Colitis Depression History of seizure due to alcohol withdrawal Surgical History Hx of tonsillectomy Family History (Updated 12/19/19 @ 22:47 by Missy Lovelace RN) Father Lung cancer Mother Family history of mental disorder Social History Smoking Status: Current every day smoker Tobacco Type: e-cigarettes Substance Use Type: Alcohol Substance Abuse Comment: TUESDAY Social History Comments: boyfriend, two children Meds Medications and Allergies Allergies No Known Allergies Allergy (Verified 09/11/23 17:06) Home Medications acamprosate 333 mg tablet,delayed release 333 mg PO BID 12/16/21 [History Confirmed 12/16/21] bupropion HCl 300 mg 24 hr tablet, extended release 300 mg PO DAILY 12/16/21 [History Confirmed 12/16/21] cephalexin 500 mg capsule 1,000 mg PO BID 10 days #40 caps 12/16/21 [Rx] escitalopram oxalate 5 mg tablet 5 mg PO DAILY 12/16/21 [History Confirmed 12/16/21] ibuprofen 800 mg tablet 800 mg PO Q6H PRN pain #20 tabs 12/16/21 [Rx] quetiapine 100 mg tablet 100 mg PO HS 12/16/21 [History Confirmed 12/16/21] sulfamethoxazole 800 mg-trimethoprim 160 mg tablet (Bactrim DS) 1 tab PO BID 10 days #20 tabs 12/16/21 [Rx] Exam Physical Exam Vital Signs: Temp Pulse Resp BP Pulse Ox O2 Del Method 98.9 F 84 18 108/74 98 Room Air 09/11/23 17:04 09/11/23 20:48 09/11/23 20:48 09/11/23 20:48 09/11/23 20:48 09/11/23 20:48 Const Orientation: awake, not oriented x3 and confused HEENT Head: no palpable skull fracture Other: Bruising on the right temporal area. Eyes Pupils: PERRL EOM: EOM intact bilaterally and No nystagmus Neck Neck: normal visual inspection, full ROM and no meningeal signs Resp Effort & Inspection: normal respiratory effort and able to speak in complete sentences Auscultation: no rales, no rhonchi and no wheezes Cardio Rate: regular rate Rhythm: regular rhythm Heart Sounds: S1 normal and S2 normal GI Palpation: soft, not firm, no guarding and nontender Neuro General: patient awake, moves all extremities, no focal motor deficits and CN's II-XI intact bilaterally Speech: speech normal Motor: muscle tone normal throughout and strength 5/5 throughout Sensory Exam: no sensory deficits noted Other: No focal motor deficit noted other than tremors. No facial asymmetry, gaze preference or dysarthria. Strength 5/ 5 in all 4 extremities. Extrem General: no clubbing, cyanosis or edema and no calf tenderness Results Lab Results Labs: Laboratory Last Values Corrected WBC 4.4 X10E3/uL (3.8-11.6) 09/11/23 18:51 Uncorrected WBC Count 4.4 x10E3/uL (3.8-11.6) 09/11/23 18:51 RBC 3.62 X10E6/uL (3.60-5.00) 09/11/23 18:51 Hgb 12.4 g/dL (11.8-15.4) 09/11/23 18:51 Hct 35.9 % (34.0-46.4) 09/11/23 18:51 MCV 99.1 fl (80-100) 09/11/23 18:51 MCH 34.1 pg (24.7-34.3) 09/11/23 18:51 MCHC 34.4 g/dL (32.0-35.0) 09/11/23 18:51 RDW 12.2 % (11.9-15.3) 09/11/23 18:51 Plt Count 149 x10E3/uL (150-450) L 09/11/23 18:51 MPV 8.2 fl (6.3-10.7) 09/11/23 18:51 Neut % (Auto) 68.8 % (.) 09/11/23 18:51 Lymph % (Auto) 22.7 % (.) 09/11/23 18:51 [place] % (Auto) 7.3 % (.) 09/11/23 18:51 Eos % (Auto) 0.8 % (.) 09/11/23 18:51 Baso % (Auto) 0.4 % (.) 09/11/23 18:51 Nucleat RBC Rel Count 0.1 /100 WBC (0-0.5) 09/11/23 18:51 Neut # (Auto) 3.1 x10E3/uL (1.8-7.7) 09/11/23 18:51 Lymph # (Auto) 1.0 x10E3/uL (1.00-4.8) 09/11/23 18:51 [place] # (Auto) 0.3 x10E3/uL (0.0-0.8) 09/11/23 18:51 Eos # (Auto) 0.0 x10E3/uL (0.0-0.45) 09/11/23 18:51 Baso # (Auto) 0.0 x10E3/uL (0.0-0.2) 09/11/23 18:51 Monocyte Dist Width 21.57 % (0.00-20.00) H 09/11/23 18:51 PHA Creatinine Clear 96.07 09/11/23 18:51 Sodium 135 mmol/L (136-145) L 09/11/23 18:51 Potassium 4.1 mmol/L (3.5-5.1) 09/11/23 18:51 Chloride 103 mmol/L (98-107) 09/11/23 18:51 Carbon Dioxide 22.9 mmol/L (21.0-31.0) 09/11/23 18:51 Anion Gap 13.2 mEq/L (6.0-15.0) 09/11/23 18:51 BUN 6 mg/dL (7-25) L 09/11/23 18:51 Creatinine 0.68 mg/dL (0.60-1.20) 09/11/23 18:51 Est GFR (CKD-EPI) > 60.0 mL/Min 09/11/23 18:51 Glucose 91 mg/dL (70-100) 09/11/23 18:51 Calcium 9.1 mg/dL (8.6-10.3) 09/11/23 18:51 Magnesium 1.7 mg/dL (1.9-2.7) L 09/11/23 18:51 Prolactin 10.97 ng/mL (3.34-26.72) 09/11/23 18:51 Urine Color Yellow (Yellow) 09/11/23 18:37 Urine Appearance Cloudy (Clear) A 09/11/23 18:37 Urine pH 6.0 (5.0-9.0) 09/11/23 18:37 Ur Specific [place] 1.005 (1.001-1.030) 09/11/23 18:37 Urine Protein Negative mg/dL (Negative) 09/11/23 18:37 Urine Glucose (UA) Normal mg/dL (Normal) 09/11/23 18:37 Urine Ketones Negative (Negative) 09/11/23 18:37 Urine Occult Blood Trace (Negative) H 09/11/23 18:37 Urine Nitrite Negative (Negative) 09/11/23 18:37 Urine Bilirubin Negative (Negative) 09/11/23 18:37 Urine Urobilinogen Normal mg/dL (Normal) 09/11/23 18:37 Ur Leukocyte Esterase 1+ (Negative) H 09/11/23 18:37 Urine RBC 1-2 /HPF (0-4) 09/11/23 18:37 Urine WBC 10-19 /HPF (0-4) H 09/11/23 18:37 Ur Squamous Epith Cells 10-19 /HPF (0-2) H 09/11/23 18:37 Urine Bacteria 3+ (None Seen) H 09/11/23 18:37 Hyaline Casts 3-4 /LPF (0-1) H 09/11/23 18:37 Urine HCG, Qual Negative 09/11/23 18:37 Urine Opiates Screen Negative (Negative) 09/11/23 18:37 Ur Barbiturates Screen Negative (Negative) 09/11/23 18:37 Ur Phencyclidine Scrn Negative (Negative) 09/11/23 18:37 Ur Amphetamines Screen Negative (Negative) 09/11/23 18:37 U Benzodiazepines Scrn Negative (Negative) 09/11/23 18:37 Urine Cocaine Screen Negative (Negative) 09/11/23 18:37 U Marijuana (THC) Screen Negative (Negative) 09/11/23 18:37 Ethyl Alcohol < 10 mg/dL 09/11/23 18:51 % Ethyl Alcohol TNP 09/11/23 18:51 Assessment & Plan Assessment/Plan (1) Seizure: (2) Alcohol withdrawal: Plan Patient sent to the emergency room from detox center due to concern for withdrawal seizure although it was not witnessed but she was noted to have bruise on the right temporal area. Patient mentioned having history of withdrawal seizures in the past and mentioned having incontinence of urine earlier today. She does appear confused and tremulous likely from acute alcohol withdrawal. She is at high risk of developing severe alcohol withdrawal leading to seizure and DTs. Will be admitted to ICU for further management. Start her on CIWA protocol and thiamine supplement. Follow- up final CT report. DVT prophylaxis. IP vs OBS Justification Based on differential dx, clinical care plan, and risk of adverse events, if untreated, in my clinical judgement this patient requires an acute care setting as: INPATIENT because of an expectation of an over 2 midnight stay. Estimated length of stay (# of days): 3 Documented By: Gem Velasco MD 09/11/232120 Signed By: <Electronically signed by Gem Velasco MD> 09/11/232132 [facility] Work Phone: Discharge summary Author Tyrone Barron [facility] September 16, 2023 3:02pm Note Date/Time September 16, 2023 3:02pm [facility] [address] [place] [address] Discharge Summary Signed Patient: Karyn Estes MR#: [id number] : 1990 Acct:[id number] Age/Sex: 33 / F Adm Date: 3 Loc: Room: [address] [place] [address]: Tyrone Barron MD Copies to: MD Carl Ortiz MD~ Providers Date of Discharge: 09/16/23 Discharging Provider: Tyrone Barron Primary Care Provider: Carl Child Consults: 09/11/23 21:33 Consult to Pulmonology Routine Discharge Diagnosis Final Diagnosis Final Discharge Diagnosis: Alcohol withdrawal syndrome Chronic problems Anxiety depression Alcoholism Summary Hospital Course Hospital course: Patient is a 33-year-old female, who presented to the emergency department from [facility], after she woke up in the morning with a bruise on her face. Therewas a question of a possible seizure during the course of the night. Nothing was witnessed. Patient was evaluated in the ED, and then admitted to the hospital. She did have a fairly severe alcohol withdrawal syndrome, requiring administration of dexmedetomidine drip, large doses of lorazepam IV, and also phenobarbital IV. Eventually, her neurological status normalized. On September 16 she was at baseline cognitive status. She stated that she had been placed in the past on abeta- tommy, and was noted to have tachyarrhythmias. Restarted propranolol which has also mild sedative effect. She tolerated that very well. No other complications occurred, and she was released in stable condition on September 16. Time Spent with Patient Time spent providing/coordinating discharge services (# min): 30 Exam Physical Exam Vital Signs: Temp Pulse Resp BP Pulse Ox O2 Del Method 97.9 F 84 16 122/74 98 Room Air 09/16/23 12:00 09/16/23 12:18 09/16/23 12:18 09/16/23 12:18 09/16/23 12:18 09/16/23 12:18 Discharge Plan Discharge Plan Patient Disposition: Home Activity: No Activity Restriction Diet: Regular Instructions: Alcohol Withdrawal (DC), Propranolol Prescriptions: New propranolol 120 mg capsule,extended release 24 hr 120 mg PO DAILY Qty: 90 3RF Continued quetiapine 100 mg tablet 100 mg PO HS Patient Comments: take 1 tablet by mouth every NIGHT bupropion HCl 300 mg tablet extended release 24 hr 300 mg PO DAILY Patient Comments: take 1 tablet by mouth once daily escitalopram oxalate 5 mg tablet 5 mg PO DAILY Patient Comments: take 1 tablet by mouth once daily acamprosate 333 mg tablet,delayed release (DR/EC) 333 mg PO BID Patient Comments: take 2 tablets by mouth three times a day cephalexin 500 mg capsule 1,000 mg PO BID 10 Days Qty: 40 0RF sulfamethoxazole-trimethoprim [Bactrim DS] 800-160 mg tablet 1 tab PO BID 10 Days Qty: 20 0RF ibuprofen 800 mg tablet 800 mg PO Q6H PRN (Reason: pain) Qty: 20 0RF Follow Up: [facility] [Outside] (Please call to schedule a follow up with [facility] if you decide.) Carl Child MD [Primary Care Provider] - 09/19/23 11:15 am (You have been scheduled for a follow up appointment for the following date and time, please call to reschedule if needed.) Documented By: Tyrone Barron MD 09/16/23 1457 Signed By: <Electronically signed by Tyrone Barron MD> 09/16/23 1503 [facility] Work Phone: Evaluation noteNo assessment information available [facility] Work Phone: Evaluation note* Diagnosis Onset Date Resolution Status Alcohol withdrawal acute Seizure acute [facility] Work Phone: Evaluation note* Diagnosis Onset Date Resolution Status Alcohol withdrawal acute Anxiety acute Bruise of face acute Depression acute Seizure acute [facility] Work Phone: History and physical note Author Gem Velasco [facility] September 11, 2023 9:33pm Note Date/Time September 11, 2023 9:25pm [facility] [address] [place] [address] Hospitalist H&P Signed Patient: Karyn Estes MR#: [id number] : 1990 Acct:[id number] Age/Sex: 33 / F Adm Date: 3 Loc: Room: [address] [place] [address] Type: ADM IN Attending Dr: Gem Velasco MD Copies to: MD Gem Malloy MD~ HPI DATE OF EXAMINATION: 09/11/23 CHIEF COMPLAINT: Concern for withdrawal seizure. HISTORY OF PRESENT ILLNESS: Patient is a 33-year-old female with history of alcohol abuse, she was sent to the emergency room by EMS from [facility] center with concern for withdrawal seizure. Apparently patient was found to have bruise on the right side of her forehead and she does have history of withdrawal seizure in the past. As per the documentation her last drink was on Tuesday. In the ER her labs did not show anysignificant abnormality other than low magnesium which is being replaced. CT head without acute abnormality with pending final report. On examination she appears tremulous and appears confused. She mentioned having seizures in the past due to alcohol withdrawal and then in the middle of the conversation she was started talking about calculator. No family member present to provide further history. Looking through her previous record she does have history of IV drug abuse and was on Suboxone as well as gestational diabetes. Review of Systems Review of Systems Unobtainable due to mental status PENDING SALE TO [facility] Medical History Anxiety Colitis Depression History of seizure due to alcohol withdrawal Surgical History Hx of tonsillectomy Family History (Updated 12/19/19 @ 22:47 by Missy Lovelace RN) Father Lung cancer Mother Family history of mental disorder Social History Smoking Status: Current every day smoker Tobacco Type: e-cigarettes Substance Use Type: Alcohol Substance Abuse Comment: TUESDAY Social History Comments: boyfriend, two children Meds Medications and Allergies Allergies No Known Allergies Allergy (Verified 09/11/23 17:06) Home Medications acamprosate 333 mg tablet,delayed release 333 mg PO BID 12/16/21 [History Confirmed 12/16/21] bupropion HCl 300 mg 24 hr tablet, extended release 300 mg PO DAILY 12/16/21 [History Confirmed 12/16/21] cephalexin 500 mg capsule 1,000 mg PO BID 10 days #40 caps 12/16/21 [Rx] escitalopram oxalate 5 mg tablet 5 mg PO DAILY 12/16/21 [History Confirmed 12/16/21] ibuprofen 800 mg tablet 800 mg PO Q6H PRN pain #20 tabs 12/16/21 [Rx] quetiapine 100 mg tablet 100 mg PO HS 12/16/21 [History Confirmed 12/16/21] sulfamethoxazole 800 mg-trimethoprim 160 mg tablet (Bactrim DS) 1 tab PO BID 10 days #20 tabs 12/16/21 [Rx] Exam Physical Exam Vital Signs: Temp Pulse Resp BP Pulse Ox O2 Del Method 98.9 F 84 18 108/74 98 Room Air 09/11/23 17:04 09/11/23 20:48 09/11/23 20:48 09/11/23 20:48 09/11/23 20:48 09/11/23 20:48 Const Orientation: awake, not oriented x3 and confused HEENT Head: no palpable skull fracture Other: Bruising on the right temporal area. Eyes Pupils: PERRL EOM: EOM intact bilaterally and No nystagmus Neck Neck: normal visual inspection, full ROM and no meningeal signs Resp Effort & Inspection: normal respiratory effort and able to speak in complete sentences Auscultation: no rales, no rhonchi and no wheezes Cardio Rate: regular rate Rhythm: regular rhythm Heart Sounds: S1 normal and S2 normal GI Palpation: soft, not firm, no guarding and nontender Neuro General: patient awake, moves all extremities, no focal motor deficits and CN's II-XI intact bilaterally Speech: speech normal Motor: muscle tone normal throughout and strength 5/5 throughout Sensory Exam: no sensory deficits noted Other: No focal motor deficit noted other than tremors. No facial asymmetry, gaze preference or dysarthria. Strength 5/ 5 in all 4 extremities. Extrem General: no clubbing, cyanosis or edema and no calf tenderness Results Lab Results Labs: Laboratory Last Values Corrected WBC 4.4 X10E3/uL (3.8-11.6) 09/11/23 18:51 Uncorrected WBC Count 4.4 x10E3/uL (3.8-11.6) 09/11/23 18:51 RBC 3.62 X10E6/uL (3.60-5.00) 09/11/23 18:51 Hgb 12.4 g/dL (11.8-15.4) 09/11/23 18:51 Hct 35.9 % (34.0-46.4) 09/11/23 18:51 MCV 99.1 fl (80-100) 09/11/23 18:51 MCH 34.1 pg (24.7-34.3) 09/11/23 18:51 MCHC 34.4 g/dL (32.0-35.0) 09/11/23 18:51 RDW 12.2 % (11.9-15.3) 09/11/23 18:51 Plt Count 149 x10E3/uL (150-450) L 09/11/23 18:51 MPV 8.2 fl (6.3-10.7) 09/11/23 18:51 Neut % (Auto) 68.8 % (.) 09/11/23 18:51 Lymph % (Auto) 22.7 % (.) 09/11/23 18:51 [place] % (Auto) 7.3 % (.) 09/11/23 18:51 Eos % (Auto) 0.8 % (.) 09/11/23 18:51 Baso % (Auto) 0.4 % (.) 09/11/23 18:51 Nucleat RBC Rel Count 0.1 /100 WBC (0-0.5) 09/11/23 18:51 Neut # (Auto) 3.1 x10E3/uL (1.8-7.7) 09/11/23 18:51 Lymph # (Auto) 1.0 x10E3/uL (1.00-4.8) 09/11/23 18:51 [place] # (Auto) 0.3 x10E3/uL (0.0-0.8) 09/11/23 18:51 Eos # (Auto) 0.0 x10E3/uL (0.0-0.45) 09/11/23 18:51 Baso # (Auto) 0.0 x10E3/uL (0.0-0.2) 09/11/23 18:51 Monocyte Dist Width 21.57 % (0.00-20.00) H 09/11/23 18:51 PHA Creatinine Clear 96.07 09/11/23 18:51 Sodium 135 mmol/L (136-145) L 09/11/23 18:51 Potassium 4.1 mmol/L (3.5-5.1) 09/11/23 18:51 Chloride 103 mmol/L (98-107) 09/11/23 18:51 Carbon Dioxide 22.9 mmol/L (21.0-31.0) 09/11/23 18:51 Anion Gap 13.2 mEq/L (6.0-15.0) 09/11/23 18:51 BUN 6 mg/dL (7-25) L 09/11/23 18:51 Creatinine 0.68 mg/dL (0.60-1.20) 09/11/23 18:51 Est GFR (CKD-EPI) > 60.0 mL/Min 09/11/23 18:51 Glucose 91 mg/dL (70-100) 09/11/23 18:51 Calcium 9.1 mg/dL (8.6-10.3) 09/11/23 18:51 Magnesium 1.7 mg/dL (1.9-2.7) L 09/11/23 18:51 Prolactin 10.97 ng/mL (3.34-26.72) 09/11/23 18:51 Urine Color Yellow (Yellow) 09/11/23 18:37 Urine Appearance Cloudy (Clear) A 09/11/23 18:37 Urine pH 6.0 (5.0-9.0) 09/11/23 18:37 Ur Specific [place] 1.005 (1.001-1.030) 09/11/23 18:37 Urine Protein Negative mg/dL (Negative) 09/11/23 18:37 Urine Glucose (UA) Normal mg/dL (Normal) 09/11/23 18:37 Urine Ketones Negative (Negative) 09/11/23 18:37 Urine Occult Blood Trace (Negative) H 09/11/23 18:37 Urine Nitrite Negative (Negative) 09/11/23 18:37 Urine Bilirubin Negative (Negative) 09/11/23 18:37 Urine Urobilinogen Normal mg/dL (Normal) 09/11/23 18:37 Ur Leukocyte Esterase 1+ (Negative) H 09/11/23 18:37 Urine RBC 1-2 /HPF (0-4) 09/11/23 18:37 Urine WBC 10-19 /HPF (0-4) H 09/11/23 18:37 Ur Squamous Epith Cells 10-19 /HPF (0-2) H 09/11/23 18:37 Urine Bacteria 3+ (None Seen) H 09/11/23 18:37 Hyaline Casts 3-4 /LPF (0-1) H 09/11/23 18:37 Urine HCG, Qual Negative 09/11/23 18:37 Urine Opiates Screen Negative (Negative) 09/11/23 18:37 Ur Barbiturates Screen Negative (Negative) 09/11/23 18:37 Ur Phencyclidine Scrn Negative (Negative) 09/11/23 18:37 Ur Amphetamines Screen Negative (Negative) 09/11/23 18:37 U Benzodiazepines Scrn Negative (Negative) 09/11/23 18:37 Urine Cocaine Screen Negative (Negative) 09/11/23 18:37 U Marijuana (THC) Screen Negative (Negative) 09/11/23 18:37 Ethyl Alcohol < 10 mg/dL 09/11/23 18:51 % Ethyl Alcohol TNP 09/11/23 18:51 Assessment & Plan Assessment/Plan (1) Seizure: (2) Alcohol withdrawal: Plan Patient sent to the emergency room from detox center due to concern for withdrawal seizure although it was not witnessed but she was noted to have bruise on the right temporal area. Patient mentioned having history of withdrawal seizures in the past and mentioned having incontinence of urine earlier today. She does appear confused and tremulous likely from acute alcohol withdrawal. She is at high risk of developing severe alcohol withdrawal leading to seizure and DTs. Will be admitted to ICU for further management. Start her on CIWA protocol and thiamine supplement. Follow- up final CT report. DVT prophylaxis. IP vs OBS Justification Based on differential dx, clinical care plan, and risk of adverse events, if untreated, in my clinical judgement this patient requires an acute care setting as: INPATIENT because of an expectation of an over 2 midnight stay. Estimated length of stay (# of days): 3 Documented By: Gem Velasco MD 09/11/232120 Signed By: <Electronically signed by Gem Velasco MD> 09/11/232132 [facility] Work Phone: Hospital Discharge instructions Additional Instructions Take the antibiotics Bactrim and Keflex both twice a day for 10 days take until completed Ibuprofen every 6 hours as needed for pain You may want to sports the area after using the restroom to clean it You may not soak in a bathtub but you can take a shower See COMPUTING TUTOR as scheduled next month Return to the ER immediately for worsening pain swelling fever chills vomiting or any other [facility] Work Phone: Summary Purpose Family History No Family History Records Found Relationship Condition Age at Onset Recorded Date/T carrie father Malignant neoplasm of lung Unknown Not Specified Family history of mental disorder Unknow n Advance Directives No Advanced Directives Records Found Advance Directive Response Recorded Date/ Time Advance Directives No September 05, 2018 3:35pm Hospital Course Note HNO ID: [id number] Author: Shaylee Whelan Service: Hospital Medicine Author Type: Physician Type: Discharge Summary Filed: 05/11/2019 3:46 PM Note Text: DISCHARGE SUMMARY PATIENT NAME: Karyn Estes ADMISSION DATE: 05/08/2019 DISCHARGE DATE: 05/11/2019 ATTENDING PHYSICIAN: Perla Whelan Code Status: Not on file Highest Readmission Risk Score: 12 The 30 day readmissions risk score is derived from an internally validated risk model which evaluates patient level characteristics, utilization history, medication orders and lab results up until the day of discharge. Patients with a score of 40 or above are considered highest risk for readmission. Specific patient level drivers will be listed at the bottom of the summary. REASON FOR HOSPITALIZATION: paresthesias DIAGNOSIS: Principal Problem: Paresthesias Active Problems: Alcohol abuse Malnutrition of moderate degree (HCC) Nicotine use disorder, F17.2 Vitamin D deficiency Resolved Problems: * No resolved hospital problems. * O (more content not included)... Chief Complaint and Reason for Visit Chief Complaint sent by ban ng Chief Complaint bruise Reason for Visit Alcohol withdrawal Seizure Chief Complaint bruise Reason for Visit Alcohol withdrawal Anxiety Bruise of face Depression Seizure Additional Source Comments INFORMATION SOURCE (unrecogn ized section and content) DATE CREATED AUTHOR 05/11/2019 [facility] DATE CREATED AUTHOR AUTHOR'S ORGANIZ ATION 06/26/2019 [facility] DATE CREATED AUTHOR AUTHOR'S ORGANIZ ATION 06/19/2021 [facility] DATE CREATED AUTHOR AUTHOR'S ORGANIZ ATION [facility]2023 [facility] DATE CREATED AUTHOR AUTHOR'S ORGANIZ ATION 09/23/2023 [facility] Care Teams (unrecognized sec tion and content) Team Status: Active Member Role Status Dates Carl Child MD Primary Care Provider Active Team Status: Inactive Member Role Status Dates Carl Child MD Primary Care Provider Active Roby Thakkar DO Emergency Provider Active Gem Velasco MD Admit Provider Active Tyrone Barron MD Attending Provider Active Gregory Raya MD Other Provider Active Team Status: Inactive Member Role Status Dates Carl Child MD Primary Care Provider Active Xochilt Beavers , [facility] Emergency Provider Active Team Status: Active Member Role Status Dates Carl Child MD Primary Care Provider Active Roby Thakkar DO Emergency Provider Active Gem Velasco MD Admit Provider, Attending Provider Active Goals (unrecognized section and content) Goals may be documented in a n alternate sectionGoals may be documented in an alternate section FOR RECORDS PERTAINING TO PATIENTS WHO ARE OR HAVE BEEN ENROLLED IN A CHEMICAL DEPENDENCY/SUBSTANCEABUSE PROGRAM, SOME INFORMATION MAY BE OMITTED. This clinical summary was aggregated from multiple sources. Caution should be exercised in using it in the provision of clinical care. This summary normalizes information from multiple sources, and as a consequence, information in this document may materially change the coding, format and clinical context of patient data. In addition, data may be omitted in some cases. CLINICAL DECISIONS SHOULD BE BASED ON THE PRIMARY CLINICAL RECORDS. [employer] provides no warranty or guarantee of the accuracy or completeness of information in this document.
[2024-08-21 07:17] LABS: Basophils Percent Auto 0.5 % (0.2-2.0); Hematocrit 40.6 % (36.0-48.0); Immature Granulocytes Abs Auto 0.01 10^3/uL (0.00-0.03); Immature Granulocytes Pct Auto 0.2 % (0.0-0.5); Lymphocytes Absolute Auto 1.4 10^3/uL (1.2-3.8); Lymphocytes Percent Auto 35.4 % (20.5-60.0); Mean Corpuscular HGB Conc 34.5 g/dL (29.9-35.2); Mean Corpuscular Hemoglobin 33.1 pg (26.7-34.0); Mean Platelet Volume 9.4 fL (9.5-13.5); Monocytes Absolute Auto 0.6 10^3/uL (0.3-0.8); Neutrophils Absolute Auto 1.9 10^3/uL (1.4-6.5); Neutrophils Percent Auto 47.9 % (43.0-75.0); Platelet Count 222 10^3/uL (150-450); Red Blood Count 4.23 10^6/uL (4.20-5.40); Red Cell Distribution Width 12.6 % (11.0-15.0)
[2024-08-21 07:51] LABS: Anion Gap 18.3; BUN Creatinine Ratio 8.6; Calcium 9.6 mg/dL (8.5-10.1); Carbon Dioxide 22.4 mmol/L (21.0-32.0); Chloride 103 mmol/L (98-107); Estimated GFR (African America >60 (>=60 mL/min/1.73m^2); Estimated GFR (Non-African Ame >60 (>=60 mL/min/1.73m^2); Glucose 95 mg/dL (74-106); Potassium 3.7 mmol/L (3.5-5.1); Sodium 140 mmol/L (136-145)
== END 2024-08-21 06:52 | disposition home or self-care (01) ==
LOC: CARD 06:53
PROVIDERS: PCP Family Medicine
DX: M20.41 Other hammer toe(s) (acquired), right foot (principal); M21.619 Bunion of unspecified foot
CPT/HCPCS: 36415; 80048; 85025; 93005

== ENCOUNTER 2024-10-14 08:59 | Emergency (ER) | payer MEDICAID, SELFPAY ==
[2024-10-14 09:04] VITALS: BP 112/82; PULSE 102; TEMP 36.7; O2SAT 99; BMI 20.2
--- OUTSIDE RECORDS SUMMARY | 2024-10-14 09:05 | XMS_ITS | CCD ---
Author Organization [facility] Care Team Providers Care Nursery Manager Name Role Phone ONI CARMICHAEL Admitting Unavailable ONI CARMICHAEL Consulting Unavailable ONI CARMICHAEL Attending Unavailable MATEUSZ, DR HENRY Primary Care Unavailable SHERICE, CORNELIA Admitting Unavailable CORNELIA SMILEY Attending Unavailable ARTURO, DR NIESHA Magaña Consulting Unavailable CORNELIA SMILEY Consulting Unavailable DR CARL CHILD Consulting Unavailable MATEUSZ, DR HENRY Attending Unavailable MATEUSZ, DR HENRY Admitting Unavailable MATEUSZ, DR HENRY Primary Care Unavailable MD Carl Child Primary Care Provider [phone] Ruthann [facility] Xochilt Awan Emergency Provider PROVIDER, UNKNOWN Attending Unavailable PROVIDER, UNKNOWN Admitting Unavailable MD Carl Child Primary Care Provider [phone] DO Roby Thakkar Emergency Provider [phone] MD Gem Velasco Admit Provider MD Gem Velasco Attending Provider MD Tyrone Barron Attending Provider MD Gregory Raya Other Provider Gem Velasco Admitting Unavailable Tyrone Barron Attending Unavailable Carl Child Primary Care Unavailable Gregory Raya Consulting Unavailable Carl Child MD Primary Care Provider [phone] ERICA MALDONADO Admitting Unavailable ERICA MALDONADO Attending Unavailable ERICA MALDONADO Admitting Unavailable ERICA MALDONADO Attending Unavailable CARL CHILD Primary Care Unavailable Allergies Allergy Classification Reported Allergen(s) Allergy Type Date of Onset Reaction(s) Facility (1 source) Penicillin Drug Allergy [facility] Repository Medications Current Medications Medication Drug Class(es) Dates Sig (Normalized) Sig (Original) acamprosate calcium 333 mg delayed release oral tablet (3 sources) Start: 12-16-2021 take 333 mg by mouth twice daily Acamprosate Active 333 MG PO Twice daily December 16, 2021 12:00am brexpiprazole 0.5 mg oral tablet (1 source) Atypical Antipsychotic take 1 tablet by mouth once daily brexpiprazole (REXULTI) 0.5 MG TABS tablet Take 1 tablet by mouth daily Active 24 hr buPROPion hydrochloride 300 mg extended release oral tablet (3 sources) Aminoketone Start: 12-16-2021 take 300 mg by mouth once daily Bupropion Hcl Active 300 MG PO Daily December 16, 2021 12:00am calcium chloride 0.0014 meq/ml / potassium chloride 0.004 meq/ml / sodium chloride 0.103 meq/ml / sodium lactate 0.028 meq/ml injectable solution (1 source) Start: 08-23-2024 IntraVENous, at 100 mL/hr, CONTINUOUS, Starting on [facility] 08/23/24 at 0800, Pre-op (day of surgery) cephalexin 500 mg oral capsule (3 sources) [...] 2021 12:00am ibuprofen 800 mg oral tablet (13 sources) Nonsteroidal Anti-inflammatory Drug Start: 12-16-2021 take [...] 12, 2018 12:00am April 21, 2019 5:25pm take 1 tablet by deo every eight hours as needed for pain ibuprofen (ADVIL;MOTRIN) 800 MG tablet Take 1 tablet by mouth every 8 hours as needed for Pain Active lamoTRIgine 100 mg oral tablet (1 source) Mood Stabilizer, Anti-epileptic Agent take 1 tablet by mouth once daily lamoTRIgine (LAMICTAL) 100 MG tablet Take 1 tablet by mouth daily Active 24 hr propranolol hydrochloride 120 mg extended release oral capsule (2 sources) beta-Adrenergic Tommy Start: take 120 mg by mouth once daily Propranolol Active 120 MG PO Daily September 16, 2023 12:00am QUEtiapine 100 mg oral tablet (3 sources) Atypical Antipsychotic Start: take 100 mg by mouth at bedtime Quetiapine Active 100 MG PO Bedtime December 16, 2021 12:00am sulfamethoxazole 800 mg / trimethoprim 160 mg oral tablet (3 sources) Dihydrofolate Reductase Inhibitor Antibacterial, Sulfonamide Antimicrobial Start: take 1 tablet by mouth twice daily Sulfamethoxazole-T rimethoprim (Bactrim Ds) 800-160 mg tablet Active 1 TAB PO Twice daily 19 08December 16, 2021 12:00am Completed/Discontinued Medications Medication Drug Class(es) Dates Sig (Normalized) Sig (Original) acetaminophen 325 mg oral tablet (7 sources) Start: 08-23-2024 End: 08-23-2024 take 4000 mg by mouth every twenty-four hours 650 mg, Oral, ONCE, 1 dose, On [facility] 08/23/24 at 0800, Maximum dose of acetaminophen is 4000 mg from all sources in 24 hours., Pre-op (day of surgery) Start: 04-21-2019 End: 12-19-2019 take 2 tablets by mouth every four hours Acetaminophen (Tylenol) 325 mg Tablet Discontinued 650 MG PO Q4H April 20, 2019 11:00pm December 19, 2019 10:46pm Start: 09-12-2018 End: 04-21-2019 take 650 mg by mouth every four hours Acetaminophen Discontinued 650 MG PO Q4H 0 September 12, 2018 12:00am April 21, [...] 20, 2019 11:00pm December 19, 2019 10:46pm dimenhyDRINATE 50 mg oral tablet (1 source) Start: 08-23-2024 End: 08-23-2024 take 1 dose by mouth once daily 50 mg, Oral, ONCE, 1 dose, On [facility] 08/23/24 at 0800, Pre-op (day of surgery) nitrofurantoin, macrocrystals 25 mg / nitrofurantoin, monohydrate 75 mg oral capsule (3 sources) Nitrofuran Antibacterial Start: 04-21-2019 End: 12-19-2019 take 1 capsule by mouth every twelve hours at mealtime Nitrofurantoin Monohyd/M-Cryst (Macrobid) 100 mg capsule Discontinued 100 MG PO Q12H 10 5 April 20, 2019 11:00pm December 19, 2019 [...] Classification Problem Date Documented Da te Episodic/Chronic Acquired foot deformities (2 sources) Other hammer toe(s) (acquired), right foot; Translations: [Other hammer toe(s) (acquired), right foot] Onset: 08-23-2024 Chronic Acquired foot deformities (2 sources) Other deformities of toe(s) (acquired), right foot; Translations: [Other deformities of toe(s) (acquired), right foot] Onset: 08-23-2024 Episodic Administrative/social admission (3 sources) Other reduced mobility; [...] Chronic Other nervous system disorders (3 sources) Guillain-Pontiac syndrome; 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 In such cases, another test should be performed with a new specimen in 48-72 hours. If early is suspected clinically in this setting, correlation with quantitative serum b-hCG level is suggested. [facility] has confirmed the use of plasma for this test. This has not been cleared or approved by the U.S. Food and Drug Administration. The FDA has determined that such clearance is not necessary. Performed By: #### U HCG #### [facility] [address] [place] [address] Therapeutic Recreation Assistant: Niesha Batres MD , Urineon HCG ( test) Ql (U) Negative NEGATIVE [facility] Comment on above: Specimens with hCG l evels near the threshold of the test (25 mIU/mL) may give a negative or indeterminate result. In such cases, another test should be performed with a new specimen in 48-72 hours. If early is suspected clinically in this setting, correlation with quantitative serum b-hCG level is suggested. [facility] has confirmed the use of plasma for this test. This has not been cleared or approved by the U.S. Food and Drug Administration. The FDA has determined that such clearance is not necessary. [facility] Basic Metabolic Panelon 11-1 Anion gap [Moles/Vol] 8.1 mmol/L Normal 6.0-15.0 [facility] Comment on above: Order Comment: pleas e change to 0900 per RN Kimberly Looney Performed By: #### M G, CMP, CBC, PT #### [facility] [address] [place] [address] [facility] Calcium [Mass/Vol] 8.3 mg/dL Low 8.6-10.3 [facility] Comment on above: Order Comment: pleas e change to 0900 per RN Kimberly Looney Performed By: #### M G, CMP, CBC, PT #### [facility] [address] [place] [id number] [facility] Chloride [Moles/Vol] 107 mmol/L Normal 98-107 [facility] Comment on above: Order Comment: pleas e change to 0900 per RN Kimberly Looney Performed By: #### M G, CMP, CBC, PT #### [facility] [address] [place] [id number] [facility] CO2 [Moles/Vol] 26.7 mmol/L Normal 21.0-31.0 [facility] Comment on above: Order Comment: pleas e change to 0900 per RN Kimberly Looney Performed By: #### M Zheng, CMP, CBC, PT #### [facility] [address] Creatinine [Mass/Vol] 0.57 mg/dL Low 0.60-1.20 [facility] Comment on above: Order Comment: pleas e change to 0900 per RN Kimberly Looney Performed By: #### Mary Calzada, CMP, CBC, PT #### [facility] [address] [place] [address] [place] Creatinine Clr Calc Pharmacy 122.00 [facility] Comment on above: Order Comment: pleas e change to 0900 per RN Kimberly Looney Performed By: #### Mary Calzada, CMP, CBC, PT #### [facility] [address] [place] [id number] [place] GFR/1.73 sq M.predicted MDRD (S/P/Bld) [Vol rate/Area] mL/min/{1.73_m2} [facility] Comment on above: Order Comment: pleas e change to 0900 per RN Kimberly Looney Performed By: #### M G, CMP, CBC, PT #### [facility] [address] [place] [id number] [facility] Glucose [Mass/Vol] 125 mg/dL High 70-100 [facility] Comment on above: Order Comment: pleas e change to 0900 per RN Kimberly Looney Result Comment: [place] om Glucose Reference Range is dependent on time and content of last meal. Glucose of more than 200 mg/dL in a nonstressed, ambulatory subject supports the diagnosis of Diabetes Mellitus. ADA recommended reference range Performed By: #### M G, CMP, CBC, PT #### [facility] [address] Potassium [Moles/Vol] 3.8 mmol/L Normal 3.5-5.1 [facility] Comment on above: Order Comment: pleas e change to 0900 per RN Kimberly Looney Performed By: #### M G, CMP, CBC, PT #### [facility] [address] Sodium [Moles/Vol] 138 mmol/L Normal 136-145 [facility] Comment on above: Order Comment: pleas e change to 0900 per RN Kimberly Looney Performed By: #### M G, CMP, CBC, PT #### [facility] [address] [place] [address] [place] Urea nitrogen [Mass/Vol] 2 mg/dL Low 7-25 [facility] Comment on above: Order Comment: pleas e change to 0900 per RN Kimberly Looney Performed By: #### M G, CMP, CBC, PT #### [facility] [address] Calcium [Mass/volume] in Ser um or PlasmaOrdered By: Tyrone Barron on 09-14-2023 Calcium [Mass/Vol] 8.3 mg/dL 8.6-10.3 [facility] Carbon dioxide, total [Moles /volume] in Serum or PlasmaOrdered By: Tyrone Barron on 09-14-2023 CO2 [Moles/Vol] 26.7 mmol/L 21.0-31.0 [facility] Chloride [Moles/volume] in S tessie or PlasmaOrdered By: Tyrone Barron on 09-14-2023 Chloride [Moles/Vol] 107 mmol/L 98-107 [facility] Creatinine [Mass/volume] in Serum or PlasmaOrdered By: Tyrone Barron on 09-14-2023 Creatinine [Mass/Vol] 0.57 mg/dL 0.60-1.20 [facility] Erythrocyte distribution wid th Auto (RBC) [Ratio]Ordered By: Tyrone Barron on 09-14-2023 Erythrocyte distribution width (RBC) [Ratio] 12.4 % 11.9-15.3 [facility] Ferritinon 09-14-2023 Ferritin [Mass/Vol] 204.3 ng/mL Normal 11.0-306.8 [facility] Comment on above: Order Comment: pleas e change to 0900 per RN Kimberly Looney Performed By: #### M G, CMP, CBC, PT #### [facility] [address] Ferritin [Mass/volume] in Se rum or PlasmaOrdered By: Tyrone Barron on 09-14-2023 Ferritin [Mass/Vol] 204.3 ng/mL 11.0-306.8 [facility] Folate [Mass/volume] in Seru m or PlasmaOrdered By: Tyrone Barron on 09-14-2023 Folate [Mass/Vol] 18.4 ng/mL >5.9 [facility] Comment on above: Folate reference ran ge: >5.9 ng/mlThe WHO technical consultation on folate and vitamin [id number] has determined that folate concentrations lessthan 4 ng/ml are considered deficient. Glucose [Mass/volume] in Ser um or PlasmaOrdered By: Tyrone Barron on 09-14-2023 Glucose [Mass/Vol] 125 mg/dL 70-100 [facility] Comment on above: ADA recommended refe rence rangeRandom Glucose Reference Range is dependent on time and content of last meal. Glucose of more than 200 mg/dL in a nonstressed, ambulatory subject supports the diagnosis of Diabetes Mellitus. Hematocrit Auto (Bld) [Volum e fraction]Ordered By: Tyrone Barron on 09-14-2023 Hematocrit (Bld) [Volume fraction] 36.4 % 34.0-46.4 [facility] Hemoglobin [Mass/volume] in BloodOrdered By: Tyrone Barron on 09-14-2023 Hemoglobin (Bld) [Mass/Vol] 12.4 g/dL 11.8-15.4 [facility] Hemogram CBC Without Diffon 09-14-2023 Erythrocyte distribution width (RBC) [Ratio] 12.4 % Normal 11.9-15.3 [facility] Comment on above: Order Comment: pleas e change to 0900 per RN Kimberly Looney Performed By: #### M G, CMP, CBC, PT #### [facility] [address] Hematocrit (Bld) [Volume fraction] 36.4 % Normal 34.0-46.4 [facility] Comment on above: Order Comment: pleas e change to 0900 per RN Kimberly Looney Performed By: #### M G, CMP, CBC, PT #### [address] Hemoglobin (Bld) [Mass/Vol] 12.4 g/dL Normal 11.8-15.4 [facility] Comment on above: Order Comment: pleas e change to 0900 per RN Kimberly Looney Performed By: #### M G, CMP, CBC, PT #### [facility] [address] [place] [address] MCH (RBC) [Entitic mass] 33.9 pg Normal 24.7-34.3 [facility] Comment on above: Order Comment: pleas e change to 0900 per RN Kimberly Looney Performed By: #### M G, CMP, CBC, PT #### [address] MCV (RBC) [Entitic vol] 99.9 fL Normal 80-100 [facility] Comment on above: Order Comment: pleas e change to 0900 per RN Kimberly Looney Performed By: #### M G, CMP, CBC, PT #### [address] Mean Corpuscular HGB Conc 33.9 g/dL Normal 32.0-35.0 [facility] Comment on above: Order Comment: pleas e change to 0900 per RN Kimberly Looney Performed By: #### M G, CMP, CBC, PT #### [address] Platelet mean volume (Bld) [Entitic vol] 7.4 fL Normal 6.3-10.7 [facility] Comment on above: Order Comment: pleas e change to 0900 per RN Kimberly Looney Result Comment: PERF ORMED BY: [place] [address] PATHOLOGIST [employer] PROFESSOR ZURDO DOMINGO M.D. Performed By: #### M G, CMP, CBC, PT #### [address] Platelets (Bld) [#/Vol] 141 10*3/uL Low 150-450 [facility] Comment on above: Order Comment: pleas e change to 0900 per RN Kimberly Looney Performed By: #### M G, CMP, CBC, PT #### [address] RBC (Bld) [#/Vol] 3.65 10*6/uL Normal 3.60-5.00 [facility] Comment on above: Order Comment: pleas e change to 0900 per RN Kimberly Looney Performed By: #### M G, CMP, CBC, PT #### [address] WBC (Bld) [#/Vol] 4.1 10*3/uL Normal 3.8-11.6 [facility] Comment on above: Order Comment: pleas e change to 0900 per RN Kimberly Looney Performed By: #### M G, CMP, CBC, PT #### [address] Iron [Mass/volume] in Serum or PlasmaOrdered By: Tyrone Barron on 09-14-2023 Iron [Mass/Vol] 75 ug/dL 50-212 [facility] Iron and TIBC Profileon 08-31 % Iron Saturation 27.5 % Normal 20-50 [facility] Comment on above: Order Comment: pleas e change to 0900 per RN Kimberly Looney Performed By: #### M G, CMP, CBC, PT #### [address] Iron [Mass/Vol] 75 ug/dL Normal 50-212 [facility] Comment on above: Order Comment: pleas e change to 0900 per RN Kimberly Looney Performed By: #### M G, CMP, CBC, PT #### [facility] [address] [place] [id number] [place] Total Iron Binding Capacity 273 ug/dL Normal 255-450 [facility] Comment on above: Order Comment: pleas e change to 0900 per RN Kimberly Looney Performed By: #### M G, CMP, CBC, PT #### [facility] [address] [place] [phone] [place] Transferrin [Mass/Vol] 195 mg/dL Low 203-362 [facility] Comment on above: Order Comment: pleas e change to 0900 per RN Kimberly Looney Performed By: #### M G, CMP, CBC, PT #### [facility] [address] [place] [address] [place] Iron binding capacity [Mass/ volume] in Serum or PlasmaOrdered By: Tyrone Barron on 09-14-2023 Iron binding capacity [Mass/Vol] 273 ug/dL 255-450 [facility] Iron saturation [Mass Fracti on] in Serum or PlasmaOrdered By: Tyrone Barron on 09-14-2023 Iron saturation [Mass fraction] 27.5 % 20-50 [facility] Leukocytes [#/volume] correc winnie for nucleated erythrocytes in Blood by Automated counOrdered By: Tyrone Barron on 09-14-2023 WBC corrected for nucl RBC Auto (Bld) [#/Vol] 4.1 10*3/uL 3.8-11.6 [facility] MCH Auto (RBC) [Entitic mass ]Ordered By: Tyrone Barron on 09-14-2023 MCH (RBC) [Entitic mass] 33.9 pg 24.7-34.3 [facility] MCHC Auto (RBC) [Mass/Vol]Or dered By: Tyrone Barron on 09-14-2023 MCHC (RBC) [Mass/Vol] 33.9 g/dL 32.0-35.0 [facility] MCV Auto (RBC) [Entitic vol] Ordered By: Tyrone Barron on 09-14-2023 MCV (RBC) [Entitic vol] 99.9 fL 80-100 [facility] Magnesiumon 09-14-2023 Magnesium [Mass/Vol] 1.8 mg/dL Low 1.9-2.7 [facility] Comment on above: Order Comment: pleas e change to 0900 per KELECHI Looney Performed By: #### M G, CMP, CBC, PT #### [facility] [address] Magnesium [Mass/volume] in S tessie or PlasmaOrdered By: Tyrone Barron on 09-14-2023 Magnesium [Mass/Vol] 1.8 mg/dL 1.9-2.7 [facility] No Panel InformationOrdered By: Tyrone Barron on 09-14-2023 Estimated GFR (CKD-EPI) > 60.0 mL/Min [facility] Creatinine Clearance (Chem 122.00 [facility] Phosphate [Mass/volume] in S tessie or PlasmaOrdered By: Tyrone Barron on 09-14-2023 Phosphate [Mass/Vol] 2.9 mg/dL 2.5-4.5 [facility] Phosphoruson 09-14-2023 Phosphate [Mass/Vol] 2.9 mg/dL Normal 2.5-4.5 [facility] Comment on above: Order Comment: pleas e change to 0900 per KELECHI Looney Performed By: #### M G, CMP, CBC, PT #### [facility] [address] Platelet mean volume Auto (B ld) [Entitic vol]Ordered By: Tyrone Barron on 09-14-2023 Platelet mean volume (Bld) [Entitic vol] 7.4 fL 6.3-10.7 [facility] Platelets Auto (Bld) [#/Vol] Ordered By: Tyrone Barron on 09-14-2023 Platelets (Bld) [#/Vol] 141 10*3/uL 150-450 [facility] Potassium [Moles/volume] in Serum or PlasmaOrdered By: Tyrone Barron on 09-14-2023 Potassium [Moles/Vol] 3.8 mmol/L 3.5-5.1 [facility] RBC Auto (Bld) [#/Vol]Ordere d By: Tyrone Barron on 09-14-2023 RBC (Bld) [#/Vol] 3.65 10*6/uL 3.60-5.00 [facility] Serum or plasma anion gap de terminationOrdered By: Tyrone Barron on 09-14-2023 Anion gap [Moles/Vol] 8.1 mmol/L 6.0-15.0 [facility] Sodium [Moles/volume] in Ser um or PlasmaOrdered By: Tyrone Barron on 09-14-2023 Sodium [Moles/Vol] 138 mmol/L 136-145 [facility] Transferrin [Mass/volume] in Serum or PlasmaOrdered By: Tyrone Barron on 09-14-2023 Transferrin [Mass/Vol] 195 mg/dL 203-362 [facility] Urea nitrogen [Mass/volume] in Serum or PlasmaOrdered By: Tyrone Barron on 09-14-2023 Urea nitrogen [Mass/Vol] 2 mg/dL 7-25 [facility] Vit. B12/Folate Profileon Cobalamin (Vitamin B12) [Mass/Vol] 1354 pg/mL High 180-914 [facility] Comment on above: Order Comment: pleas e change to 0900 per RN Kimberly Looney Performed By: #### M G, CMP, CBC, PT #### [address] Folate 18.4 ng/mL Normal >5.9 [facility] Comment on above: Order Comment: pleas e change to 0900 per RN Kimberly Looney Result Comment: Fiorella te reference range: >5.9 ng/ml The WHO technical consultation on folate and vitamin b12 deficiencies has determined that folate concentrations less than 4 ng/ml are considered deficient. PERFORMED BY: [place] [address] PATHOLOGIST [employer] PROFESSOR ZURDO DOMINGO M.D. Performed By: #### M G, CMP, CBC, PT #### [facility] [address] [place] [id number] [facility] Vitamin B12 ser/plasOrdered By: Tyrone Barron on 09-14-2023 Cobalamin (Vitamin B12) [Mass/Vol] 1354 pg/mL 180-914 [facility] Alanine aminotransferase [En zymatic activity/volume] in Serum or PlasmaOrdered By: Gem Velasco on 09-12-2023 ALT [Catalytic activity/Vol] 16 U/L 7-52 [facility] Albumin [Mass/volume] in Ser um or Plasma by Bromocresol green (BCG) dye binding methoOrdered By: Gem Velasco on 09-12-2023 Albumin BCG dye [Mass/Vol] 3.4 g/dL 3.5-5.7 [facility] Alkaline phosphatase [Enzyma tic activity/volume] in Serum or PlasmaOrdered By: Gem Velasco on 09-12-2023 ALP [Catalytic activity/Vol] 79 U/L 34-104 [facility] Aspartate aminotransferase [ Enzymatic activity/volume] in Serum or PlasmaOrdered By: Gem Velasco on 09-12-2023 AST [Catalytic activity/Vol] 28 U/L 13-39 [facility] Basophils Auto (Bld) [#/Vol] Ordered By: Gem Velasco on 09-12-2023 Basophils (Bld) [#/Vol] 0.0 10*3/uL 0.0-0.2 [facility] Basophils/100 WBC Auto (Bld) Ordered By: Gem Velasco on 09-12-2023 Basophils/100 WBC (Bld) 0.3 % . [facility] Bilirubin.total [Mass/volume ] in Serum or PlasmaOrdered By: Gem Velasco on 09-12-2023 Bilirubin [Mass/Vol] 0.5 mg/dL 0.3-1.[address] [facility] [address] head/brain wo conon 09-12 CT head/brain wo con [facility] [address] [place] [address] [place] [address] CT Scan Report Signed Patient: Karyn Estes MR#: [id number] : 1990 Acct:[id number] Age/Sex: 33 / F ADM Date: 09/11/23 Loc: Room: [address] [place] [address] Type: ADM IN Attending Dr: Gem Velasco [...] Oriana Doherty M.D.09/12/2023 6:47 AM Dictation Location: [place] [address] Transcribed By: [facility] 09/12/23646 Dictated By: Oriana Doherty MD 09/12/2345 Signed By: 09/12/2347 Normal [facility] Complete Blood Count Auto Di ffon 09-12-2023 Basophils (Bld) [#/Vol] 0.0 10*3/uL Normal 0.0-0.2 [facility] Comment on above: Result Comment: PERF ORMED BY: [place] [address] PATHOLOGIST [employer] PROFESSOR ZURDO DOMINGO M.D. Performed By: #### M G, CMP, CBC, PT #### [address] Basophils/100 WBC (Bld) 0.3 % Normal . [facility] Comment on above: Performed By: #### M G, CMP, CBC, PT #### [facility] [address] Eosinophils (Bld) [#/Vol] 0.1 10*3/uL Normal 0.0-0.45 [facility] Comment on above: Performed By: #### M G, CMP, CBC, PT #### [address] Eosinophils/100 WBC (Bld) 2.4 % Normal . [facility] Comment on above: Performed By: #### M G, CMP, CBC, PT #### [address] Erythrocyte distribution width (RBC) [Ratio] 12.4 % Normal 11.9-15.3 [facility] Comment on above: Performed By: #### M G, CMP, CBC, PT #### [address] Hematocrit (Bld) [Volume fraction] 33.3 % Low 34.0-46.4 [facility] Comment on above: Performed By: #### M G, CMP, CBC, PT #### [address] Hemoglobin (Bld) [Mass/Vol] 11.3 g/dL Low 11.8-15.4 [facility] Comment on above: Performed By: #### M G, CMP, CBC, PT #### [place] [address] [place] Lymphocytes (Bld) [#/Vol] 1.2 10*3/uL Normal 1.00-4.8 [facility] Comment on above: Performed By: #### M G, CMP, CBC, PT #### [place] [address] [place] Lymphocytes/100 WBC (Bld) 26.5 % Normal . [facility] Comment on above: Performed By: #### M G, CMP, CBC, PT #### [address] MCH (RBC) [Entitic mass] 34.1 pg Normal 24.7-34.3 [facility] Comment on above: Performed By: #### M G, CMP, CBC, PT #### [address] MCV (RBC) [Entitic vol] 100.2 fL High 80-100 [facility] Comment on above: Performed By: #### M G, CMP, CBC, PT #### [address] Mean Corpuscular HGB Conc 34.0 g/dL Normal 32.0-35.0 [facility] Comment on above: Performed By: #### M G, CMP, CBC, PT #### [address] Monocytes (Bld) [#/Vol] 0.4 10*3/uL Normal 0.0-0.8 [facility] Comment on above: Performed By: #### M G, CMP, CBC, PT #### [address] Monocytes/100 WBC (Bld) 7.8 % Normal . [facility] Comment on above: Performed By: #### M G, CMP, CBC, PT #### [address] Neutrophils (Bld) [#/Vol] 2.9 10*3/uL Normal 1.8-7.7 [facility] Comment on above: Performed By: #### M G, CMP, CBC, PT #### [address] Neutrophils/100 WBC (Bld) 63.0 % Normal . [facility] Comment on above: Performed By: #### M G, CMP, CBC, PT #### [address] NRBC% 0.1 /100{WBC} Normal 0-0.5 [facility] Comment on above: Performed By: #### M G, CMP, CBC, PT #### [address] Platelet mean volume (Bld) [Entitic vol] 8.0 fL Normal 6.3-10.7 [facility] Comment on above: Performed By: #### M G, CMP, CBC, PT #### [facility] [address] Platelets (Bld) [#/Vol] 138 10*3/uL Low 150-450 [facility] Comment on above: Performed By: #### M G, CMP, CBC, PT #### [facility] [address] [place] [address] RBC (Bld) [#/Vol] 3.33 10*6/uL Low 3.60-5.00 [facility] Comment on above: Performed By: #### M G, CMP, CBC, PT #### [address] WBC (Bld) [#/Vol] 4.6 10*3/uL Normal 3.8-11.6 [facility] Comment on above: Performed By: #### M G, CMP, CBC, PT #### [facility] [address] [place] [address] Comprehensive Metabolic Pane katja 09-12-2023 Albumin [Mass/Vol] 3.4 g/dL Low 3.5-5.7 [facility] Comment on above: Performed By: #### M G, CMP, CBC, PT #### [facility] [address] [place] [address] Albumin/Globulin [Mass ratio] 1.3 {ratio} Normal [facility] Comment on above: Performed By: #### M G, CMP, CBC, PT #### [facility] [address] ALP [Catalytic activity/Vol] 79 U/L Normal 34-104 [facility] Comment on above: Performed By: #### M G, CMP, CBC, PT #### [facility] [address] [place] [address] ALT [Catalytic activity/Vol] 16 U/L Normal 7-52 [facility] Comment on above: Performed By: #### M G, CMP, CBC, PT #### [facility] [address] [place] [address] [place] Anion gap [Moles/Vol] 7.6 mmol/L Normal 6.0-15.0 [facility] Comment on above: Performed By: #### M G, CMP, CBC, PT #### [facility] [address] [place] [address] [place] AST [Catalytic activity/Vol] 28 U/L Normal 13-39 [facility] Comment on above: Performed By: #### M G, CMP, CBC, PT #### [facility] [address] Bilirubin [Mass/Vol] 0.5 mg/dL Normal 0.3-1.0 [facility] Comment on above: Performed By: #### M G, CMP, CBC, PT #### [facility] [address] Calcium [Mass/Vol] 8.0 mg/dL Low 8.6-10.3 [facility] Comment on above: Performed By: #### M G, CMP, CBC, PT #### [facility] [address] [place] [address] [place] Chloride [Moles/Vol] 109 mmol/L High 98-107 [facility] Comment on above: Performed By: #### M G, CMP, CBC, PT #### [facility] [address] [place] [address] [place] CO2 [Moles/Vol] 24.1 mmol/L Normal 21.0-31.0 [facility] Comment on above: Performed By: #### M G, CMP, CBC, PT #### [facility] [address] [place] [address] [place] Creatinine [Mass/Vol] 0.64 mg/dL Normal 0.60-1.20 [facility] Comment on above: Performed By: #### M G, CMP, CBC, PT #### [facility] [address] [place] [address] [place] Creatinine Clr Calc Pharmacy 105.36 Normal [facility] Comment on above: Performed By: #### M G, CMP, CBC, PT #### [facility] [address] [place] [address] [place] GFR/1.73 sq M.predicted MDRD (S/P/Bld) [Vol rate/Area] mL/min/{1.73_m2} [facility] Comment on above: Performed By: #### M G, CMP, CBC, PT #### [facility] [address] Globulin (S) [Mass/Vol] 2.6 g/dL Normal [facility] Comment on above: Performed By: #### M G, CMP, CBC, PT #### [facility] [address] Glucose [Mass/Vol] 95 mg/dL Normal 70-100 [facility] Comment on above: Result Comment: [facility] Glucose Reference Range is dependent on time and content of last meal. Glucose of more than 200 mg/dL in a nonstressed, ambulatory subject supports the diagnosis of Diabetes Mellitus. ADA recommended reference range Performed By: #### M G, CMP, CBC, PT #### [facility] [address] Potassium [Moles/Vol] 3.7 mmol/L Normal 3.5-5.1 [facility] Comment on above: Performed By: #### M G, CMP, CBC, PT #### [facility] [address] Protein [Mass/Vol] 6.0 g/dL Low 6.4-8.9 [facility] Comment on above: Performed By: #### M G, CMP, CBC, PT #### [facility] [address] Sodium [Moles/Vol] 137 mmol/L Normal 136-145 [facility] Comment on above: Performed By: #### M G, CMP, CBC, PT #### [facility] [address] Urea nitrogen [Mass/Vol] 5 mg/dL Low 7-25 [facility] Comment on above: Performed By: #### M G, CMP, CBC, PT #### [facility] [address] [place] [address] [facility] Eosinophils Auto (Bld) [#/Vo l]Ordered By: Gem Velasco on 09-12-2023 Eosinophils (Bld) [#/Vol] 0.1 10*3/uL 0.0-0.45 [facility] Eosinophils/100 WBC Auto (Bl d)Ordered By: Gem Velasco on 09-12-2023 Eosinophils/100 WBC (Bld) 2.4 % . [facility] Globulin Calc (S) [Mass/Vol] Ordered By: Gem Velasco on 09-12-2023 Globulin (S) [Mass/Vol] 2.6 g/dL [facility] INR in Platelet poor plasma by Coagulation assayOrdered By: Gem Velasco on 09-12-2023 INR Coag (PPP) [Relative time] 0.9 {INR} [facility] Comment on above: INR Therapeutic Rang [...] 09-12-2023 Lymphocytes (Bld) [#/Vol] 1.2 10*3/uL 1.00-4.8 [facility] Lymphocytes/100 WBC Auto (Bl d)Ordered By: Gem Velasco on 09-12-2023 Lymphocytes/100 WBC (Bld) 26.5 % . [facility] Magnesiumon 09-12-2023 Magnesium [Mass/Vol] 2.2 mg/dL Normal 1.9-2.7 [facility] Comment on above: Result Comment: PERF ORMED BY: [facility] [address] [place] [address] PATHOLOGIST [employer] PROFESSOR ZURDO DOMINGO M.D. Performed By: #### M G, CMP, CBC, PT #### [facility] [address] [place] [address] [place] Monocytes Auto (Bld) [#/Vol] Ordered By: Gem Velasco on 09-12-2023 Monocytes (Bld) [#/Vol] 0.4 10*3/uL 0.0-0.8 [facility] Monocytes/100 WBC Auto (Bld) Ordered By: Gem Velasco on 09-12-2023 Monocytes/100 WBC (Bld) 7.8 % . [facility] Neutrophils Auto (Bld) [#/Vo l]Ordered By: Gem Velasco on 09-12-2023 Neutrophils (Bld) [#/Vol] 2.9 10*3/uL 1.8-7.7 [facility] Neutrophils/100 WBC Auto (Bl d)Ordered By: Gem Velasco on 09-12-2023 Neutrophils/100 WBC (Bld) 63.0 % . [facility] Nucleated erythrocytes [Pres ence] in Blood by Automated countOrdered By: Gem Velasco on 09-12-2023 Nucleated RBC Auto Ql (Bld) 0.1 /100{WBC} 0-0.5 [facility] Protein [Mass/volume] in Ser um or PlasmaOrdered By: Gem Velasco on 09-12-2023 Protein [Mass/Vol] 6.0 g/dL 6.4-8.9 [facility] Prothrombin Time INRon 09-12 INR Coag (PPP) [Relative time] 0.9 {INR} Normal [facility] Comment on above: Result Comment: INR [...] heart valves: 3 - 4.5 PERFORMED BY: [facility] [address] [facility] [place] [id number] PATHOLOGIST [employer] PROFESSOR ZURDO DOMINGO M.D. Performed By: #### M G, CMP, CBC, PT #### [facility] [address] [place] [address] [facility] PT Coag (PPP) [Time] 11.3 s Normal 9.0-12.9 [facility] Comment on above: Result Comment: A he matocrit value greater than 55% may lead to inaccurate results in coagulation testing. Patients having hematocrit values >55% require a special collection tube for coagulation studies. Please contact the laboratory at [phone] for redraw instructions. Performed By: #### M G, CMP, CBC, PT #### [facility] [address] [place] [address] [facility] Prothrombin time (PT)Ordered By: Gem Velasco on 09-12-2023 PT Coag (PPP) [Time] 11.3 s 9.0-12.9 [facility] Comment on above: A hematocrit value g reater than 55% may lead to inaccurate results in coagulation testing. Patients having hematocrit values >55% require a special collection tube for coagulation studies. Please contact the laboratory at [phone] for redraw instructions. Serum or plasma albumin/glob ulin mass ratioOrdered By: Gem Velasco on 09-12-2023 Albumin/Globulin [Mass ratio] 1.3 {ratio} [facility] WBC Auto (Bld) [#/Vol]Ordere d By: Gem Velasco on 09-12-2023 WBC (Bld) [#/Vol] 4.6 10*3/uL 3.8-11.6 [facility] Amphetamine Screen Ql (U)Ord ered By: Roby Thakkar on 09-11-2023 Amphetamines Ql (U) Negative Negative [facility] Automated epithelial cells c ount in urine sediment (number/area)Ordered By: Roby Thakkar on 09-11-2023 Epithelial cells Auto (Urine sed) [#/Area] 10-19 [HPF] 0-2 [facility] Automated erythrocytes count in urine sediment (number/area)Ordered By: Roby Thakkar on 09-11-2023 RBC Auto (Urine sed) [#/Area] 1-2 [HPF] 0-4 [facility] Automated leukocytes count i n urine sediment (number/area)Ordered By: Roby Bigg on 09-11-2023 WBC Auto (Urine sed) [#/Area] 10-19 [HPF] 0-4 [facility] Automated urine hyaline cast s count (number/volume)Ordered By: Roby Bigg on 09-11-2023 Hyaline casts Auto (U) [#/Vol] 3-4 [LPF] 0-1 [facility] Barbiturates [Presence] in U rine by Screen methodOrdered By: Roby Thakkar on 09-11-2023 Barbiturates Screen Ql (U) Negative Negative [facility] Basic Metabolic Panelon 08-31 Anion gap [Moles/Vol] 13.2 mmol/L Normal 6.0-15.0 [facility] Comment on above: Performed By: #### M G, BMP, PRL, CBC #### [facility] [address] [place] [address] [place] Calcium [Mass/Vol] 9.1 mg/dL Normal 8.6-10.3 [facility] Comment on above: Performed By: #### M G, BMP, PRL, CBC #### [facility] [address] [place] [id number] [place] Chloride [Moles/Vol] 103 mmol/L Normal 98-107 [facility] Comment on above: Performed By: #### M G, BMP, PRL, CBC #### [facility] [address] [place] [id number] [place] CO2 [Moles/Vol] 22.9 mmol/L Normal 21.0-31.0 [facility] Comment on above: Performed By: #### M G, BMP, PRL, CBC #### [facility] [address] [place] [id number] [place] Creatinine [Mass/Vol] 0.68 mg/dL Normal 0.60-1.20 [facility] Comment on above: Performed By: #### M G, BMP, PRL, CBC #### [facility] [address] [place] [id number] [place] Creatinine Clr Calc Pharmacy 96.07 Normal [facility] Comment on above: Performed By: #### M G, BMP, PRL, CBC #### [facility] [address] [place] [address] GFR/1.73 sq M.predicted MDRD (S/P/Bld) [Vol rate/Area] mL/min/{1.73_m2} Normal [facility] Comment on above: Performed By: #### M G, BMP, PRL, CBC #### [address] Glucose [Mass/Vol] 91 mg/dL Normal 70-100 [facility] Comment on above: Result Comment: [facility] Glucose Reference Range is dependent on time and content of last meal. Glucose of more than 200 mg/dL in a nonstressed, ambulatory subject supports the diagnosis of Diabetes Mellitus. ADA recommended reference range Performed By: #### M G, BMP, PRL, CBC #### [address] Potassium [Moles/Vol] 4.1 mmol/L Normal 3.5-5.1 [facility] Comment on above: Result Comment: Hemo lysis is present at a level that could interfere with the result. Performed By: #### M G, BMP, PRL, CBC #### [address] Sodium [Moles/Vol] 135 mmol/L Low 136-145 [facility] Comment on above: Performed By: #### M G, BMP, PRL, CBC #### [address] Urea nitrogen [Mass/Vol] 6 mg/dL Low 7-25 [facility] Comment on above: Performed By: #### M G, BMP, PRL, CBC #### [address] Basophils Auto (Bld) [#/Vol] Ordered By: Roby Thakkar on 09-11-2023 Basophils (Bld) [#/Vol] 0.0 10*3/uL 0.0-0.2 [facility] Basophils/100 WBC Auto (Bld) Ordered By: Roby Thakkar on 09-11-2023 Basophils/100 WBC (Bld) 0.4 % . [facility] Benzodiazepines Screen Ql (U )Ordered By: Roby Thakkar on 09-11-2023 Benzodiazepines Ql (U) Negative Negative [facility] Benzoylecgonine [Presence] i n Urine by Screen methodOrdered By: Roby Thakkar on 09-11-2023 Benzoylecgonine Screen Ql (U) Negative Negative [facility] Bilirubin Test strip Ql (U)O rdered By: Roby Thakkar on 09-11-2023 Bilirubin Ql (U) Negative Negative [facility] Calcium [Mass/volume] in Ser um or PlasmaOrdered By: Roby Thakkar on 09-11-2023 Calcium [Mass/Vol] 9.1 mg/dL 8.6-10.3 [facility] Cannabinoids [Presence] in U rine by Screen methodOrdered By: Roby Thakkar on 09-11-2023 Cannabinoids Screen Ql (U) Negative Negative [facility] Comment on above: These are unconfirme d results and should not be used for legal purposes. Drug Cut-Off Concentration: AMPH 1000 ng/mL DARNELL 200 ng/mL LESLIE 200 ng/mL COCM 300 ng/mL OP 300 ng/mL PCP 25 ng/mL THC 20 ng/mL Carbon dioxide, total [Moles /volume] in Serum or PlasmaOrdered By: Roby Thakkar on 09-11-2023 CO2 [Moles/Vol] 22.9 mmol/L 21.0-31.0 [facility] Chloride [Moles/volume] in S tessie or PlasmaOrdered By: Roby Thakkar on 09-11-2023 Chloride [Moles/Vol] 103 mmol/L 98-107 [facility] Color Auto (U)Ordered By: Arun Thakkar on 09-11-2023 Color (U) Yellow Yellow [facility] Complete Blood Count Auto Di ffon 09-11-2023 Basophils (Bld) [#/Vol] 0.0 10*3/uL Normal 0.0-0.2 [facility] Comment on above: Result Comment: PERF ORMED BY: [facility] [address] [place] [address] PATHOLOGIST [employer] PROFESSOR ZURDO DOMINGO M.D. Performed By: #### M G, BMP, PRL, CBC #### [address] Basophils/100 WBC (Bld) 0.4 % Normal . [facility] Comment on above: Performed By: #### M G, BMP, PRL, CBC #### [address] Eosinophils (Bld) [#/Vol] 0.0 10*3/uL Normal 0.0-0.45 [facility] Comment on above: Performed By: #### M G, BMP, PRL, CBC #### [address] Eosinophils/100 WBC (Bld) 0.8 % Normal . [facility] Comment on above: Performed By: #### M G, BMP, PRL, CBC #### [address] Erythrocyte distribution width (RBC) [Ratio] 12.2 % Normal 11.9-15.3 [facility] Comment on above: Performed By: #### M G, BMP, PRL, CBC #### [address] Hematocrit (Bld) [Volume fraction] 35.9 % Normal 34.0-46.4 [facility] Comment on above: Performed By: #### M G, BMP, PRL, CBC #### [address] Hemoglobin (Bld) [Mass/Vol] 12.4 g/dL Normal 11.8-15.4 [facility] Comment on above: Performed By: #### M G, BMP, PRL, CBC #### [address] Lymphocytes (Bld) [#/Vol] 1.0 10*3/uL Normal 1.00-4.8 [facility] Comment on above: Performed By: #### M G, BMP, PRL, CBC #### [address] Lymphocytes/100 WBC (Bld) 22.7 % Normal . [facility] Comment on above: Performed By: #### M G, BMP, PRL, CBC #### [address] MCH (RBC) [Entitic mass] 34.1 pg Normal 24.7-34.3 [facility] Comment on above: Performed By: #### M G, BMP, PRL, CBC #### [address] MCV (RBC) [Entitic vol] 99.1 fL Normal 80-100 [facility] Comment on above: Performed By: #### M G, BMP, PRL, CBC #### [address] Mean Corpuscular HGB Conc 34.4 g/dL Normal 32.0-35.0 [facility] Comment on above: Performed By: #### M G, BMP, PRL, CBC #### [address] Monocytes (Bld) [#/Vol] 0.3 10*3/uL Normal 0.0-0.8 [facility] Comment on above: Performed By: #### M G, BMP, PRL, CBC #### [place] [address] [place] Monocytes/100 WBC (Bld) 21.57 % High 0.00-20.00 [facility] Comment on above: Result Comment: For adults in ED, MDW > 20.0 may be associated with a higher risk of sepsis during the first 12 hrs of hospital admission Performed By: #### M G, BMP, PRL, CBC #### [place] [address] [place] Monocytes/100 WBC (Bld) 7.3 % Normal . [facility] Comment on above: Performed By: #### M G, BMP, PRL, CBC #### [place] [address] [place] Neutrophils (Bld) [#/Vol] 3.1 10*3/uL Normal 1.8-7.7 [facility] Comment on above: Performed By: #### Mary G, BMP, PRL, CBC #### [address] Neutrophils/100 WBC (Bld) 68.8 % Normal . [facility] Comment on above: Performed By: #### Mary G, BMP, PRL, CBC #### [address] NRBC% 0.1 /100{WBC} Normal 0-0.5 [facility] Comment on above: Performed By: #### M Zheng, BMP, PRL, CBC #### [address] Platelet mean volume (Bld) [Entitic vol] 8.2 fL Normal 6.3-10.7 [facility] Comment on above: Performed By: #### Mary G, BMP, PRL, CBC #### [address] Platelets (Bld) [#/Vol] 149 10*3/uL Low 150-450 [facility] Comment on above: Performed By: #### M G, BMP, PRL, CBC #### [address] RBC (Bld) [#/Vol] 3.62 10*6/uL Normal 3.60-5.00 [facility] Comment on above: Performed By: #### M G, BMP, PRL, CBC #### [place] [address] [place] WBC (Bld) [#/Vol] 4.4 10*3/uL Normal 3.8-11.6 [facility] Comment on above: Performed By: #### M G, BMP, PRL, CBC #### [address] Creatinine [Mass/volume] in Serum or PlasmaOrdered By: Roby Thakkar on 09-11-2023 Creatinine [Mass/Vol] 0.68 mg/dL 0.60-1.20 [facility] Dipstick and Microscopicon 1 11-11-2022 Appearance (U) Cloudy Critically abnormal Clear [facility] Comment on above: Order Comment: Name Collection Type:: Clean-Voided Midstream Performed By: #### M G, CMP, CBC, PT #### [facility] [address] [place] [address] [place] Bacteria,Urine 3+ High None Seen [facility] Comment on above: Order Comment: Name Collection Type:: Clean-Voided Midstream Performed By: #### M G, CMP, CBC, PT #### [facility] [address] [place] [address] [place] Bilirubin,Urine Negative Normal Negative [facility] Comment on above: Order Comment: Name Collection Type:: Clean-Voided Midstream Performed By: #### M G, CMP, CBC, PT #### [facility] [address] [place] [address] [place] Color (U) Yellow Normal Yellow [facility] Comment on above: Order Comment: Name Collection Type:: Clean-Voided Midstream Performed By: #### M G, CMP, CBC, PT #### [facility] [address] [place] [address] [place] Glucose Ql (U) Normal Normal Normal [facility] Comment on above: Order Comment: Name Collection Type:: Clean-Voided Midstream Performed By: #### M G, CMP, CBC, PT #### [facility] [address] [place] [address] [place] Hyaline Casts,Urine 3-4 High 0-1 [facility] Comment on above: Order Comment: Name Collection Type:: Clean-Voided Midstream Performed By: #### M G, CMP, CBC, PT #### [facility] [address] [place] [address] [place] Ketones Ql (U) Negative Normal Negative [facility] Comment on above: Order Comment: Name Collection Type:: Clean-Voided Midstream Performed By: #### M G, CMP, CBC, PT #### [facility] [address] [place] [address] [place] Leukocyte esterase Test strip Ql (U) 1+ High Negative [facility] Comment on above: Order Comment: Name Collection Type:: Clean-Voided Midstream Performed By: #### M G, CMP, CBC, PT #### [facility] [address] [place] [address] [place] Nitrite,Urine Negative Normal Negative [facility] Comment on above: Order Comment: Name Collection Type:: Clean-Voided Midstream Performed By: #### M G, CMP, CBC, PT #### [facility] [address] [place] [address] Occult Blood,Urine Trace High Negative [facility] Comment on above: Order Comment: Name Collection Type:: Clean-Voided Midstream Performed By: #### M G, CMP, CBC, PT #### [address] pH (U) 6.0 [pH] Normal 5.0-9.0 [facility] Comment on above: Order Comment: Name Collection Type:: Clean-Voided Midstream Performed By: #### M G, CMP, CBC, PT #### [facility] [address] [place] [address] Protein,Urine Negative Normal Negative [facility] Comment on above: Order Comment: Name Collection Type:: Clean-Voided Midstream Performed By: #### M G, CMP, CBC, PT #### [facility] [address] [place] [address] RBC,Urine 1-2 Normal 0-4 [facility] Comment on above: Order Comment: Name Collection Type:: Clean-Voided Midstream Performed By: #### M G, CMP, CBC, PT #### [facility] [address] [place] [address] [place] Specificy [place],Urine 1.005 Normal 1.001-1.03 0 [facility] Comment on above: Order Comment: Name Collection Type:: Clean-Voided Midstream Performed By: #### M G, CMP, CBC, PT #### [facility] [address] [place] [address] [place] Squamous Epithelial Cell,Urine 10-19 High 0-2 [facility] Comment on above: Order Comment: Name Collection Type:: Clean-Voided Midstream Performed By: #### M G, CMP, CBC, PT #### [facility] [address] [place] [address] Urobilinogen,Urine Normal Normal Normal [facility] Comment on above: Order Comment: Name Collection Type:: Clean-Voided Midstream Performed By: #### M G, CMP, CBC, PT #### [facility] [address] [place], [place] [id number] [place] WBC,Urine 10-19 High 0-4 [facility] Comment on above: Order Comment: Name Collection Type:: Clean-Voided Midstream Performed By: #### M G, CMP, CBC, PT #### [address] Drug Screen,Urineon 09-11-20 23 Amphetamine Screen,Urine Negative Normal Negative [facility] Comment on above: Performed By: #### M G, CMP, CBC, PT #### [facility] [address] [place] [address] Barbiturate Screen,Urine Negative Normal Negative [facility] Comment on above: Performed By: #### M G, CMP, CBC, PT #### [facility] [address] [place] [address] [place] Benzodiazepines Screen,Urine Negative Normal Negative [facility] Comment on above: Performed By: #### M G, CMP, CBC, PT #### [facility] [address] [place] [address] Cannabinoid Screen,Urine Negative Normal Negative [facility] Comment on above: Result Comment: Thes e are unconfirmed results and should not be used for legal purposes. Drug Cut-Off Concentration: AMPH 1000 ng/mL DARNELL 200 ng/mL LESLIE 200 ng/mL COCM 300 ng/mL OP 300 ng/mL PCP 25 ng/mL THC 20 ng/mL PERFORMED BY: [place] [address] PATHOLOGIST [employer] PROFESSOR ZURDO DOMINGO M.D. Performed By: #### M G, CMP, CBC, PT #### [facility] [address] Cocaine Screen,Urine Negative Normal Negative [facility] Comment on above: Performed By: #### M G, CMP, CBC, PT #### [facility] [address] Opiate Screen,Urine Negative Normal Negative [facility] Comment on above: Performed By: #### M G, CMP, CBC, PT #### [facility] [address] [place] [address] [place] Phencyclidine Screen,Urine Negative Normal Negative [facility] Comment on above: Performed By: #### M G, CMP, CBC, PT #### [facility] [address] ECG 12 lead ECGon 09-11-2023 ECG 12 lead ECG [facility] [place] [address] [place] [address] Electrocardiograph Report Signed Patient: Karyn Estes MR#: [id number] : 1990 Acct:[id number] Age/Sex: 33 / F ADM Date: 09/11/23 Loc: ER Room: Type: [facility] ER Attending Dr: Ordering Provider: Roby Thakkar [...] sinus rhythm Confirmed by Roby THAKKAR DO ([id number]) on 09/11/2023 8:45:31 PM Referred By: Electronically Signed By:Roby THAKKAR DO Transcribed By: MUS Signed By Roby Thakkar DO 11/11/222044 Normal [facility] Eosinophils Auto (Bld) [#/Vo l]Ordered By: Roby Thakkar on 09-11-2023 Eosinophils (Bld) [#/Vol] 0.0 10*3/uL 0.0-0.45 [facility] Eosinophils/100 WBC Auto (Bl d)Ordered By: Roby Thakkar on 09-11-2023 Eosinophils/100 WBC (Bld) 0.8 % . [facility] Erythrocyte distribution wid th Auto (RBC) [Ratio]Ordered By: Roby Thakkar on 09-11-2023 Erythrocyte distribution width (RBC) [Ratio] 12.2 % 11.9-15.3 [facility] Ethanol [Mass/volume] in Ser um or PlasmaOrdered By: Roby Thakkar on 09-11-2023 Ethanol [Mass/Vol] mg/dL [facility] Ethanol [Mass/Vol] TNP [facility] Comment on above: Test not performed Ethyl Alcohol Profileon 08-31 Ethanol [Mass/Vol] mg/dL Normal [facility] Comment on above: Performed By: #### M G, CMP, CBC, PT #### [facility] [address] Percent Ethanol Not performed Normal [facility] Comment on above: Result Comment: PERF ORMED BY: [facility] [address] [place] [address] PATHOLOGIST [employer] PROFESSOR ZURDO DOMINGO M.D. Performed By: #### M G, CMP, CBC, PT #### [facility] [address] Glucose [Mass/volume] in Ser um or PlasmaOrdered By: Roby Thakkar on 09-11-2023 Glucose [Mass/Vol] 91 mg/dL 70-100 [facility] Comment on above: ADA recommended refe rence rangeRandom Glucose Reference Range is dependent on time and content of last meal. Glucose of more than 200 mg/dL in a nonstressed, ambulatory subject supports the diagnosis of Diabetes Mellitus. HCG ( test) IAmila d Ql (U)Ordered By: Roby Thakkar on 09-11-2023 HCG ( test) Ql (U) Negative [facility] HCG,Urineon 09-11-2023 Beta HCG ( test) Ql (U) Negative Normal [facility] Comment on above: Order Comment: Name Collection Type:: Clean-Voided Midstream Result Comment: PERF ORMED BY: [facility] [address] [place] [address] PATHOLOGIST [employer] PROFESSOR ZURDO DOMINGO M.D. Performed By: #### M G, CMP, CBC, PT #### [facility] [address] Hematocrit Auto (Bld) [Volum e fraction]Ordered By: Roby Thakkar on 09-11-2023 Hematocrit (Bld) [Volume fraction] 35.9 % 34.0-46.4 [facility] Hemoglobin [Mass/volume] in BloodOrdered By: Roby Thakkar on 09-11-2023 Hemoglobin (Bld) [Mass/Vol] 12.4 g/dL 11.8-15.4 [facility] Ketones Auto test strip (U) [Mass/Vol]Ordered By: Roby Thakkar on 09-11-2023 Ketones (U) [Mass/Vol] Negative Negative [facility] Leukocytes [#/volume] correc winnie for nucleated erythrocytes in Blood by Automated counOrdered By: Roby Thakkar on 09-11-2023 WBC corrected for nucl RBC Auto (Bld) [#/Vol] 4.4 10*3/uL 3.8-11.6 [facility] Lymphocytes Auto (Bld) [#/Vo l]Ordered By: Roby Thakkar on 09-11-2023 Lymphocytes (Bld) [#/Vol] 1.0 10*3/uL 1.00-4.8 [facility] Lymphocytes/100 WBC Auto (Bl d)Ordered By: Roby Thakkar on 09-11-2023 Lymphocytes/100 WBC (Bld) 22.7 % . [facility] MCH Auto (RBC) [Entitic mass ]Ordered By: Roby Thakkar on 09-11-2023 MCH (RBC) [Entitic mass] 34.1 pg 24.7-34.3 [facility] MCHC Auto (RBC) [Mass/Vol]Or dered By: Roby Thakkar on 09-11-2023 MCHC (RBC) [Mass/Vol] 34.4 g/dL 32.0-35.0 [facility] MCV Auto (RBC) [Entitic vol] Ordered By: Roby Thakkar on 09-11-2023 MCV (RBC) [Entitic vol] 99.1 fL 80-100 [facility] Magnesiumon 09-11-2023 Magnesium [Mass/Vol] 1.7 mg/dL Low 1.9-2.7 [facility] Comment on above: Performed By: #### M G, BMP, PRL, CBC #### [facility] [address] Magnesium [Mass/volume] in S tessie or PlasmaOrdered By: Roby Thakkar on 09-11-2023 Magnesium [Mass/Vol] 1.7 mg/dL 1.9-2.7 [facility] Monocyte distribution width [Entitic volume] in Blood by AutomatedOrdered By: Roby Thakkar on 09-11-2023 Monocyte distribution width Auto (Bld) [Entitic vol] 21.57 % 0.00-20.00 [facility] Comment on above: For adults in ED, MD W > 20.0 may be associated with a higher risk of sepsis during the first 12 hrs of hospital admission Monocytes Auto (Bld) [#/Vol] Ordered By: Roby Thakkar on 09-11-2023 Monocytes (Bld) [#/Vol] 0.3 10*3/uL 0.0-0.8 [facility] Monocytes/100 WBC Auto (Bld) Ordered By: Roby Thakkar on 09-11-2023 Monocytes/100 WBC (Bld) 7.3 % . [facility] Neutrophils Auto (Bld) [#/Vo l]Ordered By: Roby Thakkar on 09-11-2023 Neutrophils (Bld) [#/Vol] 3.1 10*3/uL 1.8-7.7 [facility] Neutrophils/100 WBC Auto (Bl d)Ordered By: Roby Thakkar on 09-11-2023 Neutrophils/100 WBC (Bld) 68.8 % . [facility] Nitrite Test strip Ql (U)Ord ered By: Roby Thakkar on 09-11-2023 Nitrite Ql (U) Negative Negative [facility] No Panel InformationOrdered By: Roby Thakkar on 09-11-2023 Estimated GFR (CKD-EPI) > 60.0 mL/Min [facility] Creatinine Clearance (Chem 96.07 [facility] Nucleated erythrocytes [Pres ence] in Blood by Automated countOrdered By: Roby Thakkar on 09-11-2023 Nucleated RBC Auto Ql (Bld) 0.1 /100{WBC} 0-0.5 [facility] Opiates [Presence] in Urine by Screen methodOrdered By: Roby Thakkar on 09-11-2023 Opiates Screen Ql (U) Negative Negative [facility] Phencyclidine Screen Ql (U)O rdered By: Roby Thakkar on 09-11-2023 Phencyclidine Ql (U) Negative Negative [facility] Platelet mean volume Auto (B ld) [Entitic vol]Ordered By: Roby Thakkar on 09-11-2023 Platelet mean volume (Bld) [Entitic vol] 8.2 fL 6.3-10.7 [facility] Platelets Auto (Bld) [#/Vol] Ordered By: Roby Thakkar on 09-11-2023 Platelets (Bld) [#/Vol] 149 10*3/uL 150-450 [facility] Potassium [Moles/volume] in Serum or PlasmaOrdered By: Roby Thakkar on 09-11-2023 Potassium [Moles/Vol] 4.1 mmol/L 3.5-5.1 [facility] Comment on above: Hemolysis is present at a level that could interfere with the result. Prolactinon 09-11-2023 Prolactin 10.97 ng/mL Normal 3.34-26.72 [facility] Comment on above: Result Comment: PERF ORMED BY: [place] [address] PATHOLOGIST [employer] PROFESSOR ZURDO DOMINGO M.D. Performed By: #### M G, BMP, PRL, CBC #### [address] Prolactin [Mass/volume] in S tessie or PlasmaOrdered By: Roby Thakkar on 09-11-2023 Prolactin [Mass/Vol] 10.97 ng/mL 3.34-26.72 [facility] Protein Auto test strip (U) [Mass/Vol]Ordered By: Roby Thakkar on 09-11-2023 Protein (U) [Mass/Vol] Negative Negative [facility] RBC Auto (Bld) [#/Vol]Ordere d By: Roby Thakkar on 09-11-2023 RBC (Bld) [#/Vol] 3.62 10*6/uL 3.60-5.00 [facility] Serum or plasma anion gap de terminationOrdered By: Roby Thakkar on 09-11-2023 Anion gap [Moles/Vol] 13.2 mmol/L 6.0-15.0 [facility] Sodium [Moles/volume] in Ser um or PlasmaOrdered By: Roby Thakkar on 09-11-2023 Sodium [Moles/Vol] 135 mmol/L 136-145 [facility] Specific gravity Auto test s trip (U) [Rel density]Ordered By: Roby Thakkar on 09-11-2023 Specific gravity (U) [Rel density] 1.005 1.001-1.03 0 [facility] Urea nitrogen [Mass/volume] in Serum or PlasmaOrdered By: Roby Thakkar on 09-11-2023 Urea nitrogen [Mass/Vol] 6 mg/dL 7-25 [facility] Urine Cultureon 09-11-2023 Bacteria identified Cx Nom (U) No Growth 2 Days PERFORMED BY: [place] [address] PATHOLOGIST [employer] PROFESSOR ZURDO DOMINGO M.D. Normal [facility] Comment on above: Performed By: #### M G, CMP, CBC, PT #### [facility] [address] [place] [address] Urine bacteria detection by automated methodOrdered By: Roby Thakkar on 09-11-2023 Bacteria Auto Ql (U) 3+ None Seen [facility] Urine clarity by refractomet ry automatedOrdered By: Roby Thakkar on 09-11-2023 Clarity Refractometry automated (U) Cloudy Clear [facility] Urine culture routineOrdered By: Roby Thakkar on 09-11-2023 Bacteria identified Cx Nom (U) No Growth 2 Days [facility] Urine glucose measurement by automated test strip (mass/volume)Ordered By: Roby Thakkar on 09-11-2023 Glucose Auto test strip (U) [Mass/Vol] Normal mg/dL Normal [facility] Urine hemoglobin detection b y automated test stripOrdered By: Roby Thakkar on 09-11-2023 Hemoglobin Auto test strip Ql (U) Trace Negative [facility] Urine leukocyte esterase det ection by automated test stripOrdered By: Roby Thakkar on 09-11-2023 Leukocyte esterase Auto test strip Ql (U) 1+ Negative [facility] Urobilinogen Auto test strip (U) [Mass/Vol]Ordered By: Roby Thakkar on 09-11-2023 Urobilinogen (U) [Mass/Vol] Normal mg/dL Normal [facility] WBC Auto (Bld) [#/Vol]Ordere d By: Roby Thakkar on 09-11-2023 WBC (Bld) [#/Vol] 4.4 10*3/uL 3.8-11.6 [facility] pH Auto test strip (U)Ordere d By: Roby Thakkar on 09-11-2023 pH (U) 6.0 [pH] 5.0-9.0 [facility] Progress Noteson 06-11-2023 [employer] Analyst Authentication Interface Message Text EMERGENCY TRIAGE, TREAT AND TRANSPORT (ET3) DOCUMENTATION OF TELEHEALTH VISIT Date / Time: 06/11/2023599 Name: Karyn Ayala : 1990 SSN: (Not on file) EMS Agency: [facility] [x] Verbal consent obtained [] Implied [...] Reported: Same ET3 Encounter Completed by: Joe Diana, Normal [employer] CBC AUTO DIFFon 06-16-2021 BASO # 0.1 103/ul Normal 0.0-0.1 [facility] Comment on above: Performed By: #### C BC ####[facility] [address] [place], [place] [address]Axvcrm [place] Basophils/100 WBC (Bld) 0.5 % Normal 0.2-2.0 [facility] Comment on above: Performed By: #### C BC ####[facility] [address] [place], [place] [address]Wevwrc [place] EO # 0.0 103/ul Normal 0.0-0.7 [facility] Comment on above: Performed By: #### C BC ####[facility] [address] [place], [place] [address]Tmsjva [place] Eosinophils/100 WBC (Bld) 0.2 % Critically low 0.9-7.0 [facility] Comment on above: Performed By: #### C BC ####[facility] [address] [place], [place] [address]Gavgcp [place] Erythrocyte distribution width (RBC) [Ratio] 12.4 % Normal 11.0-15.0 [facility] Comment on above: Performed By: #### C BC ####[facility] [address] [place] Hematocrit (Bld) [Volume fraction] 55.2 % Critically high 36.0-48.0 [facility] Comment on above: Performed By: #### C BC ####[facility] [address] [place] Hemoglobin (Bld) [Mass/Vol] 18.3 g/dL Critically high 12.0-16.0 [facility] Comment on above: Performed By: #### C BC ####[facility] [address] [place] [address] [place] IG # 0.06 10e3/ul Critically high 0.00-0.03 [facility] Comment on above: Performed By: #### C BC ####[facility] [address] [place] [address] [place] IG % 0.6 % Critically high 0.0-0.5 [facility] Comment on above: Performed By: #### C BC ####[facility] [address] [place] [address] [place] LYMPH # 1.9 103/ul Normal 1.2-3.8 [facility] Comment on above: Performed By: #### C BC ####[facility] [address] [place] [address] [place] Lymphocytes/100 WBC (Bld) 19.2 % Critically low 20.5-60.0 [facility] Comment on above: Performed By: #### C BC ####[facility] [address] [place] [address] [place] MANUAL DIFF REQ NO Normal [facility] Comment on above: Performed By: #### C BC ####[facility] [address] [place] MCH (RBC) [Entitic mass] 29.5 pg Normal 26.7-34.0 [facility] Comment on above: Performed By: #### C BC ####[facility] [address] [place] [id number] Gastelum MCHC (RBC) [Mass/Vol] 33.2 g/dL Normal 29.9-35.2 [facility] Comment on above: Performed By: #### C BC ####[facility] [address] [place] [id number] Gastelum MCV (RBC) [Entitic vol] 89.0 fL Normal 81.0-99.0 [facility] Comment on above: Performed By: #### C BC ####[facility] [address] [place] [id number] Gastelum MONO # 0.4 103/ul Normal 0.3-0.8 [facility] Comment on above: Performed By: #### C BC ####[facility] [address] [place] [address]Jay Gastelum Monocytes/100 WBC (Bld) 3.8 % Normal 1.7-12.0 [facility] Comment on above: Performed By: #### C BC ####[facility] [address] [place], [place] [address]Jay Gastelum NEUT # 7.6 103/ul Critically high 1.4-6.5 [facility] Comment on above: Performed By: #### C BC ####[facility] [address] [place] [address]Jay Gastelum Neutrophils/100 WBC (Bld) 75.7 % Critically high 43.0-75.0 [facility] Comment on above: Performed By: #### C BC ####[facility] [address] [place] [id number] Gastelum Platelet mean volume (Bld) [Entitic vol] 8.8 fL Critically low 9.5-13.5 [facility] Comment on above: Performed By: #### C BC ####[facility] [address] [place] [address]Jay Gastelum PLT 438 103/ul Normal 150-450 [facility] Comment on above: Performed By: #### C BC ####[facility] [address] [place] [address]Gerken [place] RBC 6.20 106/ul Critically high 4.20-5.40 [facility] Comment on above: Performed By: #### C BC ####[facility] [address] [place] [address]Gerken [place] WBC 10.1 103/ul Normal 4.0-11.0 [facility] Comment on above: Performed By: #### C BC ####[facility] [address] [place] [address]Gerken [place] DRUG SCREEN RAPID (URINE)on 06-16-2021 AMP Negative Normal NEGATIVE [facility] Comment on above: Performed By: #### P REGU, DRUGRPD #### [facility] [address] [place] [address] Jay [place] BAR Negative Normal NEGATIVE [facility] Comment on above: Performed By: #### P REGU, DRUGRPD #### [facility] [address] [place] [address] Jay [place] BUP Positive Abnormal NEGATIVE [facility] Comment on above: Performed By: #### P REGU, DRUGRPD #### [facility] [address] [place] [address] Jay [place] BZO Negative Normal NEGATIVE [facility] Comment on above: Performed By: #### P REGU, DRUGRPD #### [facility] [address] [place] [address] Jay [place] POLINA Negative Normal NEGATIVE [facility] Comment on above: Performed By: #### P REGU, DRUGRPD #### [facility] [address] [place] [address] Jay [place] CUT-OFFS SEE BELOW Normal [facility] Comment on above: Result Comment: AMP (Amphetamine): [...] Performed By: #### P REGU, DRUGRPD #### [facility] [address] [place] [address] DRUG CUT HEADER DRUG CLASS TEST SYST EM CUT-OFF CONCENTRATIONS ARE FOLLOWS: Normal [facility] Comment on above: Performed By: #### P REGU, DRUGRPD #### [facility] [address] [place] [address] mAMP Negative Normal NEGATIVE [facility] Comment on above: Performed By: #### P REGU, DRUGRPD #### [facility] [address] [place] [address] Jay [place] MTD Negative Normal NEGATIVE [facility] Comment on above: Performed By: #### P REGU, DRUGRPD #### [facility] [address] [place] [address] OPI Negative Normal NEGATIVE [facility] Comment on above: Performed By: #### P REGU, DRUGRPD #### [facility] [address] [place] [address] Jay [place] OXY Negative Normal NEGATIVE [facility] Comment on above: Performed By: #### P REGU, DRUGRPD #### [facility] [address] [place] [address] PCP Negative Normal NEGATIVE [facility] Comment on above: Performed By: #### P REGU, DRUGRPD #### [facility] [address] [place] [address] [facility] Normal NEGATIVE [facility] Comment on above: Performed By: #### P REGU, DRUGRPD #### [facility] [address] [place] [address] Jay [place] TCA Negative Normal NEGATIVE [facility] Comment on above: Performed By: #### P REGU, DRUGRPD #### [facility] [address] [place], [place] [id number] Jay [place] THC Negative Normal NEGATIVE [facility] Comment on above: Performed By: #### P REGU, DRUGRPD #### [facility] [address] [place], [place] [address] Jayevangelist Gastelum URon 06-16-2021 , QUAL Negative Normal NEGATIVE [facility] Comment on above: Performed By: #### P REGTulio DRUGRPD #### [facility] [address] [place] [id number] Jay Gastelum PROF CHEM 8 (BAS METB)on Anion gap [Moles/Vol] 20.1 mmol/L Normal [facility] Comment on above: Performed By: #### B MP #### [facility] [address] [place] [address] Jay [place] Calcium [Mass/Vol] 9.7 mg/dL Normal 8.4-10.2 [facility] Comment on above: Performed By: #### B MP #### [facility] [address] [place] [address] Jay [place] Chloride [Moles/Vol] 102 mmol/L Normal 98-107 [facility] Comment on above: Performed By: #### B MP #### [facility] [address] [place] [address] Jay [place] CO2 [Moles/Vol] 21.7 mmol/L Critically low 22.0-30.0 [facility] Comment on above: Performed By: #### B MP #### [facility] Laboratory [address] [place], [place] [id number] Jay Oriana Creatinine [Mass/Vol] 1.03 mg/dL Normal 0.52-1.04 [facility] Comment on above: Performed By: #### B MP #### [facility] [address] [id number] Jay Oriana EGFR-AF CHINESE >60 Normal >=60 [facility] Comment on above: Performed By: #### B MP #### [facility] [address] [place], [place] [address] Jay Oraina EGFR-NON AF CHINESE >60 Normal >=60 [facility] Comment on above: Performed By: #### B MP #### [facility] [address] [place], [place] [address] Jay Oriana Glucose [Mass/Vol] 112 mg/dL Critically high 74-106 T [facility] Comment on above: Performed By: #### B MP #### [facility] [address] [id number] Jay Oriana Potassium [Moles/Vol] 3.8 mmol/L Normal 3.4-5.0 [facility] Comment on above: Performed By: #### B MP #### [facility] [address] [id number] Jay Oriana Sodium [Moles/Vol] 140 mmol/L Normal 137-145 [facility] Comment on above: Performed By: #### B MP #### [facility] [address] [id number] Jay Oriana Urea nitrogen [Mass/Vol] 6.0 mg/dL Critically low 7.0-17.0 [facility] Comment on above: Performed By: #### B MP #### [facility] [address] [id number] Jay Oriana Urea nitrogen/Creatinine [Mass ratio] 5.8 mg/mg Normal [facility] Comment on above: Performed By: #### B MP #### [facility] [address] [id number] Jay Oriana HEPATITIS PANEL, ACUTEon HBsAg Screen Negative Normal Negative [facility] Comment on above: Performed By: #### H EPACUT ####[facility] [address] [id number] Oriana Hep A Ab, IgM Negative Normal Negative [facility] Comment on above: Performed By: #### H EPACUT ####[facility] [address] [id number] Oriana Hep B Core Ab, IgM Negative Normal Negative [facility] Comment on above: Performed By: #### H EPACUT ####[facility] [address] [address]Jay Gastelum Hep C Virus Ab <0.1 Normal 0.0-0.9 [facility] Comment on above: Result Comment: Nega tive: < 0.8 Indeterminate: 0.8 - 0.9 Positive: > 0.9 . The CDC recommends that a positive HCV antibody result be followed up with a HCV Nucleic Acid Amplification test (955366). Performed By: #### H EPACUT ####[facility] [address] [address]Dania Gastelum XR FOOT SADE MIN 3 VIEWSon XR [...] NIESHA MORRIS Date: 2020-07-02 11:36 Normal [facility] CBC AUTO DIFFon 07-01-2020 BASO # 0.0 103/ul Normal 0.0-0.1 [facility] Comment on above: Performed By: #### C BC #### [facility] [address] [address] Jay Gastelum Basophils/100 WBC (Bld) 0.4 % Normal 0.2-2.0 [facility] Comment on above: Performed By: #### C BC #### [facility] [address] [place] [address] Jay Oriana EO # 0.1 103/ul Normal 0.0-0.7 [facility] Comment on above: Performed By: #### C BC #### [facility] [address] [place], [place] [id number] Jay Oriana Eosinophils/100 WBC (Bld) 0.7 % Critically low 0.9-7.0 [facility] Comment on above: Performed By: #### C BC #### [facility] [address] [place] [address] Jay Oriana Erythrocyte distribution width (RBC) [Ratio] 13.2 % Normal 11.0-15.0 [facility] Comment on above: Performed By: #### C BC #### [facility] [address] [place] [address] Jay Oriana Hematocrit (Bld) [Volume fraction] 40.6 % Normal 36.0-48.0 [facility] Comment on above: Performed By: #### C BC #### [facility] [address] [place] [address] Jay Oriana Hemoglobin (Bld) [Mass/Vol] 13.5 g/dL Normal 12.0-16.0 [facility] Comment on above: Performed By: #### C BC #### [facility] [address] [place] [address] Jay Oriana IG # 0.02 10e3/ul Normal 0.00-0.03 [facility] Comment on above: Performed By: #### C BC #### [facility] [address] [place] [address] Jay Oriana IG % 0.2 % Normal 0.0-0.5 [facility] Comment on above: Performed By: #### C BC #### [facility] [address] [place] [address] Jay Oriana LYMPH # 2.4 103/ul Normal 1.2-3.8 [facility] Comment on above: Performed By: #### C BC #### [facility] [address] [place], [place] [address] Jay Oriana Lymphocytes/100 WBC (Bld) 22.2 % Normal 20.5-60.0 [facility] Comment on above: Performed By: #### C BC #### [facility] [address] [place] [address] Jay Oriana MANUAL DIFF REQ NO Normal [facility] Comment on above: Performed By: #### C BC #### [facility] [address] [place], [place] [address] Jay Oriana MCH (RBC) [Entitic mass] 31.3 pg Normal 26.7-34.0 [facility] Comment on above: Performed By: #### C BC #### [facility] [address] [place], [place] [address] Jay Oriana MCHC (RBC) [Mass/Vol] 33.3 g/dL Normal 29.9-35.2 [facility] Comment on above: Performed By: #### C BC #### [facility] [address] [place], [place] [address] Jay Oriana MCV (RBC) [Entitic vol] 94.2 fL Normal 81.0-99.0 [facility] Comment on above: Performed By: #### C BC #### [facility] [address] [place], [place] [address] Jay Oriana MONO # 0.9 103/ul Critically high 0.3-0.8 [facility] Comment on above: Performed By: #### C BC #### [facility] [address] [place], [place] [address] Jay Oriana Monocytes/100 WBC (Bld) 8.4 % Normal 1.7-12.0 [facility] Comment on above: Performed By: #### C BC #### [facility] [address] [place], [place] [address] Jay Oriana NEUT # 7.3 103/ul Critically high 1.4-6.5 [facility] Comment on above: Performed By: #### C BC #### [facility] [address] [place], [place] [address] Jay Gastelum Neutrophils/100 WBC (Bld) 68.1 % Normal 43.0-75.0 [facility] Comment on above: Performed By: #### C BC #### [facility] [address] [place], [place] [address] Jay Gastelum Platelet mean volume (Bld) [Entitic vol] 9.7 fL Normal 9.5-13.5 [facility] Comment on above: Performed By: #### C BC #### [facility] [address] [place], [place] [address] Jayevangelist Ahumadaen PLT 231 103/ul Normal 150-450 [facility] Comment on above: Performed By: #### C BC #### [facility] [address] [place] [address] Jayevangelist Gastelum RBC 4.31 106/ul Normal 4.20-5.40 [facility] Comment on above: Performed By: #### C BC #### [facility] [address] [place] [address] Jay Gastelum WBC 10.8 103/ul Normal 4.0-11.0 [facility] Comment on above: Performed By: #### C BC #### [facility] [address] [place], [place] [address] Jay Gastelum FREE THYROXINE INDEX T7on FTI 2.41 Normal [facility] Comment on above: Performed By: #### L IPID, T7, TSH, CMP #### [facility] [address] [place], [place] [address] Jay Gastelum T3U 29.0 % Normal 23.5-40.5 [facility] Comment on above: Performed By: #### L IPID, T7, TSH, CMP #### [facility] [address] [place], [place] [address] Jay Gastelum T4 [Mass/Vol] 8.30 ug/dL Normal 5.53-11.00 [facility] Comment on above: Performed By: #### L IPID, T7, TSH, CMP #### [facility] [address] [place], [place] [address] Jay Oriana GLYCOHEMOGLOBIN A1Con 2019 Glucose [Mass/Vol] 105 mg/dL Normal [facility] Comment on above: Performed By: #### A 1C #### [facility] [address] [id number] Jay Oriana HbA1c (Bld) [Mass fraction] 5.3 % Normal <=6.0 [facility] Comment on above: Performed By: #### A 1C #### [facility] [address] [id number] Jay Oriana IRONon 07-01-2020 Iron [Mass/Vol] 65.0 ug/dL Normal 37.0-170.0 [facility] Comment on above: Performed By: #### I CEZAR #### [facility] [address] [place] [address] Jay Oriana LIPID PROFILEon 07-01-2020 CHOL-HDL RATIO NORM SEE BELOW Normal [facility] Comment on above: Result Comment: 3.3 - 4.4 LOW RISK 4.4 - 7.1 AVERAGE RISK 7.1 - 11.0 MODERATE RISK >11.0 HIGH RISK Performed By: #### L IPID, T7, TSH, CMP #### [facility] [address] [place], [place] [address] Jay Oriana Cholesterol [Mass/Vol] 202 mg/dL Critically high <=200 [facility] Comment on above: Performed By: #### L IPID, T7, TSH, CMP #### [facility] [address] [id number] Jay Oriana Cholesterol in HDL [Mass/Vol] 39 mg/dL Normal [facility] Comment on above: Performed By: #### L IPID, T7, TSH, CMP #### [facility] [address] [address] Jay Oriana Cholesterol in LDL [Mass/Vol] 128.0 mg/dL Normal [facility] Comment on above: Performed By: #### L IPID, T7, TSH, CMP #### [facility] [address] [address] Jay Oriana Cholesterol.total/Chol esterol in HDL [Mass ratio] 5.2 {ratio} Normal [facility] Comment on above: Performed By: #### L IPID, T7, TSH, CMP #### [facility] [address] [address] Jay Oriana HDL NORMAL > or = 60 mg/dl - LO W CARDIOVASCULAR RISK <40 mg/dl - HIGH CARDIOVASCULAR RISK Normal [facility] Comment on above: Performed By: #### L IPID, T7, TSH, CMP #### [facility] [address] [place] [address] Jay Oriana LDL CALC NORMAL SEE BELOW Normal [facility] Comment on above: Result Comment: <100 mg/dl OPTIMAL 100 - 129 mg/dl NEAR OR ABOVE OPTIMAL 130 - 159 mg/dl BORDERLINE HIGH 160 - 189 mg/dl HIGH >190 mg/dl VERY HIGH Performed By: #### L IPID, T7, TSH, CMP #### [facility] [address] [place] [address] Jay Oriana Triglyceride [Mass/Vol] 175 mg/dL Critically high <=150 [facility] Comment on above: Performed By: #### L IPID, T7, TSH, CMP #### [facility] [address] [place] [address] Jay Oriana VLDL CALC 35.0 mg/dL Normal [facility] Comment on above: Performed By: #### L IPID, T7, TSH, CMP #### [facility] [address] [place] [address] Jay Gastelum PROF 14(COMP METB)on 020 Albumin [Mass/Vol] 3.8 g/dL Normal 3.5-5.0 [facility] Comment on above: Performed By: #### L IPID, T7, TSH, CMP #### [facility] [address] [place] [address] Jay Oriana Albumin/Globulin [Mass ratio] 1.0 {ratio} Normal [facility] Comment on above: Performed By: #### L IPID, T7, TSH, CMP #### [facility] [address] [place] [address] Jay Oriana ALP [Catalytic activity/Vol] 125 U/L Normal 38-126 [facility] Comment on above: Performed By: #### L IPID, T7, TSH, CMP #### [facility] [address] [place] [address] Jay Oriana ALT [Catalytic activity/Vol] 38 U/L Normal 9-52 [facility] Comment on above: Performed By: #### L IPID, T7, TSH, CMP #### [facility] [address] [place] [address] Jay Oriana Anion gap [Moles/Vol] 10.9 mmol/L Normal [facility] Comment on above: Performed By: #### L IPID, T7, TSH, CMP #### [facility] [address] [place] [address] Jay Oriana AST [Catalytic activity/Vol] 27 U/L Normal 14-36 [facility] Comment on above: Performed By: #### L IPID, T7, TSH, CMP #### [facility] [address] [place] [address] Jay Oriana Bilirubin [Mass/Vol] 0.4 mg/dL Normal 0.2-1.3 [facility] Comment on above: Performed By: #### L IPID, T7, TSH, CMP #### [facility] [address] [place] [address] Jay Oriana Calcium [Mass/Vol] 9.6 mg/dL Normal 8.4-10.2 [facility] Comment on above: Performed By: #### L IPID, T7, TSH, CMP #### [facility] [address] [place] [address] Jay Oriana Chloride [Moles/Vol] 102 mmol/L Normal 98-107 [facility] Comment on above: Performed By: #### L IPID, T7, TSH, CMP #### [facility] [address] [place] [address] Jay Oriana CO2 [Moles/Vol] 29.8 mmol/L Normal 22.0-30.0 [facility] Comment on above: Performed By: #### L IPID, T7, TSH, CMP #### [facility] [address] [place], [place] [address] Jay Oriana Creatinine [Mass/Vol] 0.82 mg/dL Normal 0.52-1.04 [facility] Comment on above: Performed By: #### L IPID, T7, TSH, CMP #### [facility] [address] [place], [place] [address] Jay Oriana EGFR-AF CHINESE >60 Normal >=60 [facility] Comment on above: Performed By: #### L IPID, T7, TSH, CMP #### [facility] [address] [address] Jay Oriana EGFR-NON AF CHINESE >60 Normal >=60 [facility] Comment on above: Performed By: #### L IPID, T7, TSH, CMP #### [facility] [address] [id number] Jay Oriana Globulin (S) [Mass/Vol] 3.7 g/dL Normal [facility] Comment on above: Performed By: #### L IPID, T7, TSH, CMP #### [facility] [address] [address] Jay Oriana Glucose [Mass/Vol] 97 mg/dL Normal 74-106 [facility] Comment on above: Performed By: #### L IPID, T7, TSH, CMP #### [facility] [address] [address] Jay Oriana Potassium [Moles/Vol] 3.7 mmol/L Normal 3.4-5.0 [facility] Comment on above: Performed By: #### L IPID, T7, TSH, CMP #### [facility] [address] [address] Jay Oriana Protein [Mass/Vol] 7.5 g/dL Normal 6.1-8.2 [facility] Comment on above: Performed By: #### L IPID, T7, TSH, CMP #### [facility] [address] [address] Jay Oriana Sodium [Moles/Vol] 139 mmol/L Normal 137-145 [facility] Comment on above: Performed By: #### L IPID, T7, TSH, CMP #### [facility] [address] [address] Jay Gastelum Urea nitrogen [Mass/Vol] 4.0 mg/dL Critically low 7.0-17.0 [facility] Comment on above: Performed By: #### L IPID, T7, TSH, CMP #### [facility] [address] [address] Jay Gastelum Urea nitrogen/Creatinine [Mass ratio] 4.9 mg/mg Normal [facility] Comment on above: Performed By: #### L IPID, T7, TSH, CMP #### [facility] [address] [address] Jay Gastelum TSHon 07-01-2020 TSH 2.215 uIU/mL Normal 0.470-4.68 0 [facility] Comment on above: Performed By: #### L IPID, T7, TSH, CMP ####[facility] [address] [id number] Gastelum TSH RANGE SEE BELOW Normal [facility] Comment on above: Result Comment: <0.3 4 UIU/ml HYPERTHYROID 0.34-5.60 UIU/ml EUTHYROID >5.60 UIU/ml HYPOTHYROID Performed By: #### L IPID, T7, TSH, CMP ####[facility] [address] [address]Jay Gastelum CNOVon 06-12-2019 CNOV Office Visit (NELEIGHMN ) -- KARYN ESTES ([id number]) 1990 F Date Time Provider Department 06/12/19 9:45 AM BESSY SHERIFF) NENMMN During your visit today, we recorded the following information about you: Pulse Respiration Blood pressure Weight 126/minute 18/minute 110/74 50.3 kg Height 1.676 m Christel Larose MD, PhD 06/26/2019 1:28 AM Signed [facility] [place] [facility] Consult Visit Note Referring provider AND PCP - Carl Child MD [address] [place] [address] [address]Douglas Child for an [...] she was then sent to an OSH ([place]) as she could barely walk at all [...] Dr Child who sent her to a [facility] where she was given hydration and a [...] file Gets together: Not on file Attends islam service: Not on file Active member of [...] on file Social History Narrative Worked at [employer]) but stopped working after this last episode [...] workup was done at the time (in [place]) and CSF and MRI brain/C/L spine w/wo [...] will be communicated to the patient via telephone/LocalSorthart. Patient to call office if not contacted after expected testing turnaround time. To aid with communication, patients (and primary care physicians) can sign up for Optasite (or SI-BONE), which allows online appointment scheduling, transmission of labs results and chart notes, and secure email communication. To establish either account, visit [email or web address]. Bessy Sheriff MD Fellow, Neuromuscular Medicine In the service of Christel Larose MD, PhD [facility] STAFF PHYSICIAN NOTE OF PERSONAL INVOLVEMENT IN [...] Larose spent at least 50% of the [id number] time in counseling, explanation of diagnosis, planning of further management, and answering all questions. Christel Larose MD, PhD Director, Section of ALS and Related Disorders Staff, Neuromuscular Center [facility] [place] Bessy Sheriff MD, MD 06/12/2019 1:25 PM [...] [R20.2] Order(s):VITAMIN B12 BLOOD [SQB12] Order #: [id number]. #:[id number] HGB A1C [UWSQY9U] Order #: [id number]. #:[id number] PROTEIN ELECTROPHORESIS W/INTERP [SQSEPG] Order #: [id number]. #:[id number] METHYLMALONIC ACID [SQMMA] Order #: [id number]. #:[id number] EMG(NEURO/NI) [[id number]] Order #: [id number]: 1 IMMUNOFIXATION SCREEN, SERUM [SQIFESC] Order #: [id number] Prescriptions as of 06/12/2019 Sig: POTASSIUM CHLORIDE [...] by CHRISTEL LAROSE MD on 06/26/[address] [facility] Hemoglobin A1con 06-12-2019 HbA1c (Bld) [Mass fraction] 4.6 % Normal 4.3-5.[address] [facility] Comment on above: Result Comment: Amer ican Diabetes Association guidelines indicate that patients with HgbA1c in the range 5.7-6.4% are at increased risk for development of diabetes, and intervention by lifestyle modification may be beneficial. HgbA1c greater or equal to 6.5% is considered diagnostic of diabetes. Performed By: #### C BCDIF, CMP #### [facility] [address] [place], [place] [id number] HbA1c (Bld) [Mass fraction] 85 mg/dL Normal [facility] Comment on above: Result Comment: eAG: (Estimated average glucose) is a calculated value from HgbA1c and is labor representative of the average blood glucose level in the last 2-3 month period. Performed By: #### C BCDIF, CMP #### [facility] [address] [place], [place] [address] Methylmalonic Acidon 019 Methylmalonic Acid 175 nmol/L Normal 79-376 [facility] Comment on above: Result Comment: This test was developed and its performance characteristics determined by [facility]'s [facility] [place] ([facility]). It has not been cleared or approved by the FDA. [facility] is regulated under CLIA as qualified to perform high complexity testing. This test is used for clinical purposes. It should not be regarded as investigational or for research. Performed By: #### C BCDIF, CMP #### [facility] [address] [place], [place] [address] PROGRESSon 06-12-2019 PROGRESS HNO ID: [id number] Author: Christel Larose Service: ? Author Type: Physician Type: Progress Notes Filed: 06/26/2019 1:28 AM Note Text: [facility] [place] [facility] Consult Visit Note Referring provider AND PCP - Carl Child MD [facility] [place] [address]Douglas Child for an [...] she was then sent to an OSH ([place]) as she could barely walk at all [...] Dr Child who sent her to a [facility] where she was given hydration and a [...] file Gets together: Not on file Attends islam service: Not on file Active member of [...] on file Social History Narrative Worked at [employer]) but stopped working after this last episode [...] workup was done at the time (in [place]) and CSF and MRI brain/C/L spine w/wo [...] will be communicated to the patient via telephone/LocalSorthart. Patient to call office if not contacted after expected testing turnaround time. To aid with communication, patients (and primary care physicians) can sign up for Optasite (or SI-BONE), which allows online appointment scheduling, transmission of labs results and chart notes, and secure email communication. To establish either account, visit [email or web address]. Bessy Sheriff MD Fellow, Neuromuscular Medicine In the service of Christel Larose MD, PhD [facility] STAFF PHYSICIAN NOTE OF PERSONAL INVOLVEMENT IN [...] Larose spent at least 50% of the imkt-[id number] time in counseling, explanation of diagnosis, planning of further management, and answering all questions. Christel Larose MD, PhD Director, Section of ALS and Related Disorders Staff, Neuromuscular Center [facility] [place] Normal [facility] Protein Electrophor.on 06-12 Albumin [Mass/Vol] 4.10 g/dL Normal 3.37-4.23 [facility] Comment on above: Performed By: #### C BCDIF, CMP #### [facility] [address] [address] Alpha 1 Globulin 0.26 gm/dL Normal 0.18-0.31 [facility] Comment on above: Performed By: #### C BCDIF, CMP #### [facility] [address] [place], [place] [address] Alpha 2 Globulin 0.96 gm/dL Normal 0.52-0.97 [facility] Comment on above: Performed By: #### C BCDIF, CMP #### [facility] [address] [place], [place] [address] Beta Globulin 1.18 gm/dL Normal 0.84-1.[address] [facility] Comment on above: Performed By: #### C BCDIF, CMP #### [facility] [address] [place], [place] [address] Gamma Globulin 1.50 gm/dL High 0.70-1.[address] [facility] Comment on above: Performed By: #### C BCDIF, CMP #### [address] [place] [id number] Interpretation SEE COMMENT Normal [facility] Comment on above: Result Comment: No d efinitive M protein is identified on protein electrophoresis. Performed By: #### C BCDIF, CMP #### [address] [place] [id number] M [place] Concentratn 0.00 gm/dL Normal 0.00 [facility] Comment on above: Performed By: #### C BCDIF, CMP #### [place] [id number] Protein [Mass/Vol] N/A Normal [facility] Comment on above: Performed By: #### C BCDIF, CMP #### [place] [id number] Protein [Mass/Vol] 8.0 g/dL Normal 6.0-8.4 [facility] Comment on above: Performed By: #### C BCDIF, CMP #### [place] [id number] SPE Staff Review Reviewed by Casey Rebolledo MD ([id number]) Normal [facility] Comment on above: Performed By: #### C BCDIF, CMP #### [place] [address] Vitamin B12on 06-12-2019 Cobalamin (Vitamin B12) [Mass/Vol] 631 pg/mL Normal 232-[address] [facility] Comment on above: Performed By: #### C BCDIF, CMP #### [address] [address] CASE MANAGEMon 05-11-2019 CASE MANAGEM HNO ID: [id number] Author: Margot Briscoe (Sw) Service: Care Management Author Type: Twill Cutter Type: Care Mgt Progress Note Filed: 05/11/2019 2:11 PM Note Text: CARE MANAGEMENT DISCHARGE NOTE SERVICE DATE: 05/11/2019 SERVICE TIME: 2:08 PM LOS: 3 days Admission Date: 05/08/2019 DISCHARGE ARRANGEMENT (list agency and phone number) [facility] facility: Was an expedited discharge program used? [...] Transportation Agency and Phone #: Oren Schilling [phone]. Date of Trip: 05/11/19 Type of Service: BLS Non-emergency Is Patient Medicaid Pending: Yes and [place] medicaid Discussion of financial coverage occurred with Patient . Skating [employer] Location: Destination: Financial Care Management Responsibility: Estimated Charge: Approving Medicine Assistant: ADDITIONAL CONTACT RESOURCES: Patient tells me she is agreeable with discharge plan to go to SNF SIGNATURE: DOMINGUEZ Corrales PATIENT NAME: Karyn Estes DATE: May 11, 2019 TIME: 2:07 PM PAGER/CONTACT #: [phone] [facility] CONSULT PROGon 05-11-2019 CONSULT PROG HNO ID: [id number] Author: Jamie Guardado Service: Psychiatry Author Type: [...] Suboxone. ? ? Jamie Guardado MD ? [facility] CONSULT PROGon 05-10-2019 CONSULT PROG HNO ID: [id number] Author: Jamie Guardado Service: Psychiatry Author Type: [...] taking Suboxone. ? ? Jamie Guardado MD [facility] CONSULT PROG HNO ID: [id number] Author: Casey Cheung Service: Neurology General Author [...] be available as needed. Casey Cheung MD [facility] NURSING PROGon 05-10-2019 NURSING PROG HNO ID: [id number] Author: Caron GallegosRnSahara Carmen RN Service: Nursing Author Type: Registered Nurse Type: Nursing Progress Note Filed: 05/10/2019 8:40 AM Note Text: Nursing Progress Note Patient Name: Karyn Estes [facility] Daily Note: Heavy two person assist to bedside commode, patient unsteady during transfer to bedside commode. Bath given patient then heavy two person transfer to chair, patient assisted with ordering breakfast. This note was completed by: Caron Carmen RN [facility] PROGRESSon 05-10-2019 PROGRESS HNO ID: [id number] Author: Perla Whelan Service: Hospital Medicine Author Type: Physician Type: Progress Notes Filed: 05/10/2019 3:46 PM Note Text: SERVICE DATE: 05/10/2019 SERVICE TIME: 3:45 PM HOSPITAL MEDICINE PROGRESS NOTE NIGHT AND WEEKEND COVERAGE: Days: [phone], please page me for patient issues. Nights: [phone], please page CC Hospitalist Night coverage pager [phone] HPI 29 years old who presented to [...] VTE Prophylaxis/Anticoagulants 05/08/19 0145 pneumatic compression stockings (de,nm) VTE Prophylaxis: VTE prophylaxis appropriate Plan of care discussed with: Patient, Care Management and RN SIGNATURE: Perla Whelan DO PATIENT NAME: Karyn Estes DATE: May 10, 2019 TIME: 3:45 PM PAGER/CONTACT #: [phone] [facility] THERAPY NTon 05-10-2019 THERAPY [facility]ESS [facility]PITAL[facility] ID: [id number] Author: Shaina Miller/L) Kristie Service: Occupational Therapy Author Type: Occupational Therapist Type: Therapy (PT/OT/Speech/Resp) Filed: 05/10/2019 11:11 AM Note Text: Occupational Therapy Evaluation SERVICE DATE: 05/10/2019 SERVICE TIME: 954 to 1044 ROOM: [place] [address] Recommended Discharge Disposition: Acute Rehab Justification For [...] functional decline for the past 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 Today, pt very ataxic and uncoordinated with [...] signs-other;Lack of coordination-other Interventions Provided: Evaluation;Therapeutic Activity (00135) $ Evaluation-Moderate (49973) Billed Units: 1 unit Therapeutic Activity (57756) Treatment Minutes: 25 2 units Skilled Intervention(s): [...] phone within patients reach. Pt. Verbalized understanding. Welding Technician Strength: Right: 17# Left: 16# Pinch Strength: [...] DATE: May 10, 2019 TIME: 11:01 AM [facility] HEALTH 05-09-2019 ALLIED HEALTH HNO ID: [id number] Author: Yves Best (Rt) Service: ? Author Type: Manufactured Buildings Supervisor Type: Allied Health Filed: 05/08/2019 11:00 PM [...] Lisa Fide May 08, 2019 10:44 PM [facility] CASE MANAGEMon 05-09-2019 CASE MANAGEM HNO ID: [id number] Author: Margot Briscoe (Sw) Service: Care Management Author Type: Twill Cutter Type: Care Mgt Progress Note Filed: 05/09/2019 2:59 PM Note Text: CARE MANAGEMENT PROGRESS NOTE SERVICE DATE: 05/09/2019 SERVICE TIME: 2:58 PM LOS: 1 day FREEDOM OF CHOICE GIVEN: Yes Karyn estes Financial Disclosure Provided The patient and/or family has been given the Provider List: Yes Provider List: Assisted Facility Ms. Estes tells me she is agreeable with discharge plan to SNF for short term rehab stay. Preference is a facility in [facility] with her insurance closer to her home in [facility] SIGNATURE: DOMINGUEZ Corrales PATIENT NAME: Karyn Estes DATE: May 09, 2019 TIME: 2:58 PM PAGER/CONTACT #: [phone] [facility] CASE MANAGEM HNO ID: [id number] Author: Margot Briscoe (Sw) Service: Care Management Author Type: Twill Cutter Type: Care Mgt Progress Note Filed: 05/09/2019 [...] Yes - Do you ever drink an eye-supervisor lens generating in the morning to relieve shakes? Yes-has in the past Met with Ms. Estes this date. She tells me she believes she has a substance abuse problem. Initially she declined community resources available to her in her area of LTAC, located within [facility]. However after discussing [facility] assessment she stated she would consider an out patient program, but is undecided at this time. Stated she has gone to [place] treatment in the past and would [...] supportive family. Informed patient that the social media marketer remains available. She also tells me she will consider treatment and is aware of the [employer] phone number on the back of her card to contact for further available services under her [employer] insurance as needed. Community resources for substance abuse provided to patient. SIGNATURE: DOMINGUEZ Corrales PATIENT NAME: Karyn Estes DATE: May 09, 2019 TIME: 11:05 AM PAGER/CONTACT #: [phone] [facility] CONSULT PROGon 05-09-2019 CONSULT PROG HNO ID: [id number] Author: Jamie Guardado Service: Psychiatry Author Type: Physician Type: Consult Progress Note Filed: 05/09/2019 2:39 PM Note Text: PSYCHIATRY CONSULT SERVICE PROGRESS NOTE PATIENT NAME: Karyn Estes SERVICE DATE: May 09, 2019 SUBJECTIVE: Ms. Estes said she feels foggy today. She said she is overwhelmed with all that is going on. 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 She could tell me the days of [...] with her. ? Jamie Guardado MD Normal [facility] Comp Metabolic Panelon 05-09 Albumin [Mass/Vol] 3.5 g/dL Low 3.9-4.9 [facility] ALP [Catalytic activity/Vol] 102 U/L Normal 34-123 [facility] ALT [Catalytic activity/Vol] 27 U/L Normal 7-38 [facility] Anion gap [Moles/Vol] 16 mmol/L Normal 9-18 [facility] AST [Catalytic activity/Vol] 53 U/L High 13-35 [facility] Bilirubin [Mass/Vol] 0.4 mg/dL Normal 0.2-1.3 [facility] Calcium [Mass/Vol] 9.5 mg/dL Normal 8.5-10.2 [facility] Chloride [Moles/Vol] 104 mmol/L Normal 97-105 [facility] CO2 [Moles/Vol] 21 mmol/L Low 22-30 [facility] Creatinine [Mass/Vol] 0.50 mg/dL Low 0.58-0.96 [facility] eGFR- Amer. >60 Normal [facility] GFR/1.73 sq M predicted among non-blacks MDRD (S/P/Bld) [Vol rate/Area] mL/min/{1.73_m2} Normal [facility] Comment on above: Result Comment: eGFR [...] GFR. Glucose [Mass/Vol] 76 mg/dL Normal 74-99 [facility] Comment on above: Result Comment: The [place] Diabetes Association (ADA) provides guidance for cutoff [...] Standards of Medical Care in Diabetes 2016, [place] Diabetes Association. Diabetes Care. 2016.39(Suppl 1). Potassium [Moles/Vol] 3.8 mmol/L Normal 3.7-5.1 [facility] Protein [Mass/Vol] 6.4 g/dL Normal 6.3-8.0 [facility] Sodium [Moles/Vol] 141 mmol/L Normal 136-144 [facility] Urea nitrogen [Mass/Vol] 4 mg/dL Low 7-21 [facility] MRI BRAIN WO/W IVCONon 05-09 MRI BRAIN WO/W IVCON * * *Final Report* * * DATE OF EXAM: May 08 2019 11:05PM [facility] 0295 - MRI BRAIN WO/W IVCON / [...] appearance of the thalami and medullary bodies. Fish Farm Laborer: TAIWO Transcribe Date/Time: May 08 2019 11:29P Dictated by : VALENTNIA MCGRATH MD This examination was interpreted and the report reviewed and electronically signed by: VALENTINA MCGRATH MD on May 08 2019 11:32PM EST [id number] Normal [facility] Magnesiumon 05-09-2019 Magnesium [Mass/Vol] 1.8 mg/dL Normal 1.7-2.3 [facility] PLAN OF CAREon 05-09-2019 PLAN OF CARE HNO ID: [id number] Author: Margot Briscoe (Sw) Service: Care Management Author Type: Twill Cutter Type: Plan of Care Filed: 05/09/2019 9:51 AM Note Text: MULTIDISCIPLINARY ROUNDS SERVICE DATE: 05/09/2019 ADMISSION DATE: 05/08/2019 SERVICE TIME: 9:49 AM ANTICIPATED D/C DATE: Problem List: ACTIVE PROBLEM LIST Weakness Malnutrition of Moderate Degree (Hcc) Paresthesias Alcohol Abuse Anxiety Attendees Present at Rounds: Nurse Medicine Assistant/Blind Hanger Nurse Medicine Assistant: Twill Cutter: Staff Nurse: Needs Discussed on Rounds: Mobility [...] May 09, 2019 TIME: 9:49 AM CSN: [id number] [facility] PROGRESSon 05-09-2019 PROGRESS HNO ID: [id number] Author: Perla Whelan Service: Hospital Medicine Author Type: Physician Type: Progress Notes Filed: 05/09/2019 3:31 PM Note Text: SERVICE DATE: 05/09/2019 SERVICE TIME: 3:29 PM HOSPITAL MEDICINE PROGRESS NOTE NIGHT AND WEEKEND COVERAGE: Days: [phone], please page me for patient issues. Nights: [phone], please page CC Hospitalist Night coverage pager [phone] HPI 29 years old who presented to [...] stockings (fl,oh) VTE Prophylaxis: VTE prophylaxis appropriate Plan of care discussed with: Provider, RN, Patient SIGNATURE: Perla Whelan DO PATIENT NAME: Karyn Estes DATE: May 09, 2019 TIME: 3:29 PM PAGER/CONTACT #: [phone] [facility] PROGRESS HNO ID: [id number] Author: Perla Whelan Service: Hospital Medicine Author [...] DATE: 05/09/2019 TIME: 10:09 AM PAGER #: [phone] [facility] THERAPY NT 05-09-2019 THERAPY NT HNO ID: [id number] Author: Aury (Pt) Orlin Service: Physical Therapy Author Type: Physical Therapist Type: Therapy (PT/OT/Speech/Resp) Filed: 05/09/2019 2:57 PM Note Text: Physical Therapy Evaluation SERVICE DATE: 05/09/2019 SERVICE TIME: 1317 to 1403 ROOM: [place] [address] Recommended Discharge Disposition: Acute Rehab Recommended Discharge [...] Patient TREATMENT INTERVENTIONS: Interventions Provided: Evaluation;Therapeutic Exercise (88589);Gait Training (19530) $ Evaluation-Moderate (54338) Billed Units: 1 unit Therapeutic Exercise (19696) Treatment Minutes: 20 1 unit Skilled Intervention(s): [...] - emphasis on trying to make complete [place] ( has eversion weakness) Quadricep Sets Gluteal [...] to reduce ataxia/deviation of movement Gait Training (48342) Treatment Minutes: 10 1 unit Skilled Intervention(s): [...] DATE: May 09, 2019 TIME: 2:37 PM [facility] Blood Cultureon 05-08-2019 Bacteria identified Cx Nom (Bld) Sp. Request/Comment: - The blood culture bottles are underfilled. Adding volume lower or higher than the 8 to 10 mL per bottle, which is the manufacturers recommended volume, may adversely affect the recovery and/or detection of organisms. 6.0CC Culture Result - No growth [address] days [address] [facility] Comment on above: Performed By: #### C BCDIF, CMP #### [facility] [address] [place], [place] [address] CASE MGT INIT ASSESon 2018 CASE MGT INIT [facility] HNO ID: [id number] Author: Georgette Hernandez (Miguelina) Neelima Service: Social Work Author Type: Twill Cutter Type: Care Mgt Initial Assessment Filed: 05/08/2019 1:38 PM Note Text: CARE MANAGEMENT: ASSESSMENT AND DISCHARGE PLAN SERVICE DATE: 05/08/2019 SERVICE TIME: 1:28 PM PRIMARY CARE PHYSICIAN: Carl Child MD ADMISSION STATUS: Inpatient Needs Prior to Discharge: To Be Determined MEDICAL: Patient/Barn Hand Stated Goals: To have reduction in symptoms To improve my functional status To return home to life as it was Health Insurance: [facility] MEDICAID . Health Issues Impacting Discharge Plan: Newly diagnosed Dizziness Weakness and tingling in lower extremeties Last Admission Date: none Is this Within the Past 30 days? No Advance Directive: Current Advance Directive: None Cullet Crusher Attempted to Assist with AD Completion: Yes [...] Walker Has the Patient Been in a Assisted Facility in the Past 30 days? No [...] 0 I feel financially burdened by my mvr-yn-abxbbi expenses for my prescription medication: Disagree mostly [...] is a 29 yo female admitted to [facility] from [facility] ED. Pt lives with her boyfriend and her two children (Ages 11 yo and 9 yo). Pt states her boyfriend is watching them while she is in the hospital. She lives in [facility] and usually follows with a PCP in [facility]. She stated she went to [facility] to try to get answers on why [...] 08, 2019 TIME: 1:28 PM PAGER/CONTACT #: [phone] Normal [facility] CBCon 05-08-2019 Absolute nRBC <0.01 Normal <0.01 [facility] Comment on above: Performed By: #### V ITD #### [facility] [address] [place] [address] Erythrocyte distribution width (RBC) [Ratio] 13.3 % Normal 11.5-15.0 [facility] Comment on above: Performed By: #### V ITD #### [place] [address] Hematocrit (Bld) [Volume fraction] 35.3 % Low 36.0-46.0 [facility] Comment on above: Performed By: #### V ITD #### [place] [address] Hemoglobin (Bld) [Mass/Vol] 12.0 g/dL Normal 11.5-15.5 [facility] Comment on above: Performed By: #### V ITD #### [place] [address] MCH (RBC) [Entitic mass] 38.5 pG High 26.0-34.0 [facility] Comment on above: Performed By: #### V ITD #### [address] [address] MCHC (RBC) [Mass/Vol] 34.0 g/dL Normal 30.5-36.0 [facility] Comment on above: Performed By: #### V ITD #### [facility] [address] [place] [address] MCV (RBC) [Entitic vol] 113.1 fL High 80.0-100.0 [facility] Comment on above: Performed By: #### V ITD #### [facility] [address] [place] [address] Platelet mean volume (Bld) [Entitic vol] 9.6 fL Normal 9.0-12.7 [facility] Comment on above: Performed By: #### V ITD #### [facility] [address] [place] [id number] Platelets (Bld) [#/Vol] 202 10*3/uL Normal 150-400 [facility] Comment on above: Performed By: #### V ITD #### [facility] [address] [place] [address] RBC (Bld) [#/Vol] 3.12 10*6/uL Low 3.90-5.20 [facility] Comment on above: Performed By: #### V ITD #### [facility] [address] [place] [id number] WBC (Bld) [#/Vol] 5.32 10*3/uL Normal 3.70-11.00 [facility] Comment on above: Performed By: #### V ITD #### [facility] [address] [place] [id number] CONSULTon 05-08-2019 CONSULT HNO ID: [id number] Author: Jamie Guardado Service: Psychiatry Author Type: Physician Type: Consults Filed: 05/08/2019 2:57 PM Note Text: PSYCHIATRY INITIAL CONSULTATION NOTE NAME: Karyn Estes SERVICE DATE: May 08, 2019 Consulting Service: Hospital Medicine REASON FOR CONSULTATION: Anxiety, possible conversion disorder. Identifying Information: Ms. Estes is a 29 year old female from [place], [place]. HPI: She was admitted to the hospital for weakness. She said her legs started to give out of her a couple of days ago. She said there is nothing she can put her finger on as to why this should be happening. She said she was tripping on things and having trouble walking. She said she came to [place] rather then stay closer to home to [...] COLLATERAL INFORMATION: I attempted to contact Neptali Diallo, . She said he is her boyfriend [...] HISTORY: Childhood: Said she was raised in [place] as the youngest of 4 children. She denied any abuse as a child. She went to [employer] and graduated in 2005. She then went to work at the [employer]. Relationships: single, never , she has a boyfriend, Neptali, 24 years old, for the last year. Children: Yes, (2) minors - does have custody, 10 and 8 years old. 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 Current supports: spouse/partner Legal history: INCARCERATIONS: for few months in the past for possession of heroin Church affiliation(s): None Abuse history: She denied a history of emotional, physical or sexual abuse, or any history of trauma. No family history on file. Family Psychiatric History: Alcoholism (Father and Mother) and Chemical dependency (Sister) Vital Signs: 05/08/19 0125 05/08/19 0406 05/08/19 0734 05/08/19 1223 BP: 113/79 118/83 119/83 Pulse: 95 98 97 Resp: 16 18 18 Temp: 36.6 ?C (97.9 ?F) 36.4 ?C [...] 05/07/2019 7.0 4.5 - 8.0 Final Specific [place], [place] Date Value Ref Range Status 05/07/2019 [...] said she does not currently work an [employer] program. She said she has not been [...] Zyprexa to Remeron to lessen risks of termite treater helper side effects. She denied any psychotic issues or history of psychotic issues or Bipolar Disorder. C. Diagnostic tests recommended: None D. Psychiatry will follow with you. Would ask case management to discuss treatment options with her. SIGNATURE: Jamie Guardado MD PATIENT NAME: Karyn Estes DATE: May 08, 2019 TIME: 1:44 PM Normal [facility] CONSULT HNO ID: [id number] Author: Casey Cheung Service: Neurology General Author [...] fasciculations. There were no involuntary movements. Coordination: Hoizdr-dnnl-swwmvx testing finds her mis-targeting about an inch [...] Casey Cheung MD Staff, General Neurology Normal [facility] Comp Metabolic Panelon 05-08 Albumin [Mass/Vol] 3.2 g/dL Low 3.9-4.9 [facility] Comment on above: Performed By: #### V ITD #### [facility] [address] [place], [place] [address] ALP [Catalytic activity/Vol] 95 U/L Normal 34-123 [facility] Comment on above: Performed By: #### V ITD #### [facility] [address] [place], [place] [address] ALT [Catalytic activity/Vol] 24 U/L Normal 7-38 [facility] Comment on above: Performed By: #### V ITD #### [facility] [address] [place], [place] [address] Anion gap [Moles/Vol] 13 mmol/L Normal 9-18 [facility] Comment on above: Performed By: #### V ITD #### [place] [address] [place] [id number] AST [Catalytic activity/Vol] 47 U/L High 13-35 [facility] Comment on above: Performed By: #### V ITD #### [place] [address] Bilirubin [Mass/Vol] 0.4 mg/dL Normal 0.2-1.3 [facility] Comment on above: Performed By: #### V ITD #### [place] [address] Calcium [Mass/Vol] 8.8 mg/dL Normal 8.5-10.2 [facility] Comment on above: Performed By: #### V ITD #### [place] [address] Chloride [Moles/Vol] 103 mmol/L Normal 97-105 [facility] Comment on above: Performed By: #### V ITD #### [place] [phone] CO2 [Moles/Vol] 22 mmol/L Normal 22-30 [facility] Comment on above: Performed By: #### V ITD #### [address] [address] Creatinine [Mass/Vol] 0.46 mg/dL Low 0.58-0.96 [facility] Comment on above: Performed By: #### V ITD #### [facility] [address] [place] [id number] eGFR- Amer. >60 Normal [facility] Comment on above: Performed By: #### V ITD #### [facility] [address] [place], [place] [address] GFR/1.73 sq M predicted among non-blacks MDRD (S/P/Bld) [Vol rate/Area] mL/min/{1.73_m2} Normal [facility] Comment on above: Result Comment: eGFR [...] GFR. Performed By: #### V ITD #### [facility] [address] [place], [place] [address] Glucose [Mass/Vol] 90 mg/dL Normal 74-99 [facility] Comment on above: Result Comment: The [place] Diabetes Association (ADA) provides guidance for cutoff [...] Standards of Medical Care in Diabetes 2016, [place] Diabetes Association. Diabetes Care. 2016.39(Suppl 1). Performed By: #### V ITD #### [facility] [address] [place], [place] [address] Potassium [Moles/Vol] 3.3 mmol/L Low 3.7-5.1 [facility] Comment on above: Performed By: #### V ITD #### [facility] [address] [place], [place] [address] Protein [Mass/Vol] 5.8 g/dL Low 6.3-8.0 [facility] Comment on above: Performed By: #### V ITD #### [facility] [address] [place], [place] [id number] Sodium [Moles/Vol] 138 mmol/L Normal 136-144 [facility] Comment on above: Performed By: #### V ITD #### [facility] [address] [place], [place] [id number] Urea nitrogen [Mass/Vol] 4 mg/dL Low 7-21 [facility] Comment on above: Performed By: #### V ITD #### [facility] [address] [place] [address] ED NOTEon 05-08-2019 ED NOTE HNO ID: [id number] Author: Leonor GallegosRn) KELECHI Recinos Service: Emergency Medicine Author Type: Registered Nurse Type: ED Notes Filed: 05/08/2019 12:34 AM Note Text: Report called and given to KELECHI Fitch Normal [facility] ED NOTE HNO ID: [id number] Author: Yves Lopez (Ct) Service: Emergency Medicine Author Type: Clinical Manufactured Buildings Supervisor Type: ED Notes Filed: 05/08/2019 12:22 AM Note Text: Transport arrived Normal [facility] ED NOTE HNO ID: [id number] Author: Claudia GallegosRn) KELECHI Segura Service: Emergency Medicine Author Type: Registered Nurse Type: ED Notes Filed: 05/07/2019 11:24 PM Note Text: Patient placed on bedpan. Urine yellow in color. Obtained and sent. No dysuria/hematuria. Normal [facility] ED NOTE HNO ID: [id number] Author: Yves Lopez (Ct) Service: Emergency Medicine Author Type: Clinical Manufactured Buildings Supervisor Type: ED Notes Filed: 05/07/2019 10:43 PM Note Text: Pt given ice water. Will check back for urine. Normal [facility] ED NOTE HNO ID: [id number] Author: Yves Lopez (Ct) Service: Emergency Medicine Author Type: Clinical Manufactured Buildings Supervisor Type: ED Notes Filed: 05/07/2019 10:35 PM Note Text: 2nd set of cultures obtained and sent. Normal [facility] HISTORY PHYSICALon 9 HISTORY PHYSICAL HNO ID: [id number] Author: Lula Frank Service: Hospital Medicine Author Type: Physician Type: [...] year she was admitted to hospital in [place]( couldn't confirm if it is [place]) [...] symptoms last year with extensive workup in [place] last year that resolved after a week, [...] VTE Prophylaxis/Anticoagulants 05/08/19 0145 pneumatic compression stockings (de,oh) VTE Prophylaxis: VTE prophylaxis appropriate SIGNATURE: Lula Frank MD PATIENT NAME: Karyn Estes DATE: May 08, 2019 TIME: 2:42 AM PAGER/CONTACT #: [phone] [facility] NURSING PROGon 05-08-2019 NURSING PROG HNO ID: [id number] Author: Mirna (Rn) KELECHI Carranza Service: ? Author Type: Registered Nurse Type: Nursing Progress Note Filed: 05/08/2019 3:09 PM Note Text: Post Fall Assessment Karyn Estes [id number] Witnessed: Yes How did fall occur: Getting [...] This note was completed by:Mirna Carranza RN [facility] ID: [id number] Author: Makenna GallegosRn) KELECHI Anderson Service: ? Author Type: Registered Nurse Type: Nursing Progress Note Filed: 05/08/2019 6:58 AM Note Text: Nursing Progress Note Patient Name: Karyn Estes Patient Location: [place] [address] [address] Daily Note: Labs resulted. K 3.3. Alpha paged Cross Coverage [phone]. Awaiting further orders. ([id number]) New orders received. This note was completed by: Makenna Anderson RN [facility] NURSING PROG HNO ID: [id number] Author: Makenna GallegosRn) KELECHI Anderson Service: ? Author Type: Registered Nurse Type: Nursing Progress Note Filed: 05/08/2019 2:18 AM Note Text: Admission/Transfer Note PATIENT NAME: Karyn Estes Patient admitted from [facility] ED via stretcher in stable condition. Actions taken: Patient oriented to room, call light function, prescribed activities, Patient rights and Quiet at night. No futher actions taken at this time. Will continue to monitor and check with patient. This note was completed by: Makenna Anderson RN [facility] NUTRITIONon 05-08-2019 NUTRITION HNO ID: [id number] Author: Hang Arreola Service: Nutrition Therapy Author [...] year she was admitted to hospital in [place]( couldn't confirm if it is [place]) [...] Resting Metabolic Rate: 1251 Estimated kilocalorie needs: 5157-8678 kilocalories determined by 25-30 kcal/kg Estimated protein needs: 52-78 grams determined by 1.0-1.5 g/kg Dosing weight Estimated fluid needs: 8786-7413 milliliters based on 1 mL per kcal [...] May 08, 2019 TIME: 1:09 PM PAGER: [phone] [facility] PROGRESSon 05-08-2019 PROGRESS HNO ID: [id number] Author: Perla Whelan Service: Hospital Medicine Author [...] consult appreciated. Similar presentation in 08/2018 at [facility]. Extensive work up, including LP and full spine MRI to r/o myelopathy. Infection, Guillian-Pontiac, MS and AIDP/CIDP were ruled out. Was [...] Associate Staff, Department of Hospital Medicine Clinical Beam Department Supervisorasbestos shingle roofer, CCL of [facility] Pager [phone] [facility] Toxicology Screen,Uron 05-08 Amphetamines, Urine Negative Normal Negative [facility] Comment on above: Result Comment: Cuto ff threshold at 1000 ng/mL. Performed By: #### U TOX2, UAWMIC #### [facility] [address] [place] [phone] Barbiturates, Urine Negative Normal Negative [facility] Comment on above: Result Comment: Cuto ff threshold at 200 ng/mL. Performed By: #### U TOX2, UAWMIC #### [facility] [address] [place] [phone] Benzodiazepines, Ur Negative Normal Negative [facility] Comment on above: Result Comment: Cuto ff threshold at 200 ng/mL. Performed By: #### U TOX2, UAWMIC #### [facility] [address] [place] [phone] Cannabinoids, Urine Negative Normal Negative [facility] Comment on above: Result Comment: Cuto ff threshold at 50 ng/mL. Performed By: #### U TOX2, UAWMIC #### [facility] [address] [place] [phone] Cocaine, Urine Negative Normal Negative [facility] Comment on above: Result Comment: Cuto ff threshold at 300 ng/mL. Performed By: #### U TOX2, UAWMIC #### [facility] [address] [place] [phone] Ethanol, Urine <11 Normal <[address] [facility] Comment on above: Performed By: #### U TOX2, UAWMIC #### [facility] [address] [place] [phone] Opiates, Urine Negative Normal Negative [facility] Comment on above: Result Comment: Cuto ff threshold at 300 ng/mL. Performed By: #### U TOX2, UAWMIC #### [facility] [place] [place] [phone] Oxycodone, Urine Negative Normal Negative [facility] Comment on above: Result Comment: Cuto ff [...] on the same specimen through Client Services ([phone]) if contacted within 48 hours of initial testing. [1]Substance Abuse and Mental Health Services Administration (2012). Clinical Drug Testing in Primary Care Technical Assistance Publication Series 32. Department of Health and Human Services, [place], p.10. These tests were developed and their performance characteristics determined by [facility]'s [facility] [place] ([facility]). They have not been cleared or approved by the FDA. [facility] is regulated under CLIA as qualified to perform high complexity testing. These tests are used for clinical purposes. They should not be regarded as investigational or for research. Performed By: #### U TOX2, UAWMIC #### [facility] [address] [place], [place] [address] Phencyclidine, Urine Negative Normal Negative [facility] Comment on above: Result Comment: Cuto ff threshold at 25 ng/mL. Performed By: #### U TOX2, UAWMIC #### [facility] [address] [place], [place] [address] Urinalysis with Microscopico n 05-08-2019 Bilirubin, Urine Negative Normal Negative [facility] Comment on above: Performed By: #### U TOX2, UAWMIC #### [facility] [address] [place], [place] [address] Clarity (U) Cloudy Critically abnormal Clear [facility] Comment on above: Performed By: #### U TOX2, UAWMIC #### [facility] [address] [place] [phone] Color (U) Yellow Normal Yellow [facility] Comment on above: Performed By: #### U TOX2, UAWMIC #### [place] [address] [place] [phone] Comments SEE COMMENT Normal [facility] Comment on above: Result Comment: N/A Performed By: #### U TOX2, UAWMIC #### [place] [address] [place] [address] Epithelial cells LM.HPF (Urine sed) [#/Area] SEE COMMENT Normal [facility] Comment on above: Result Comment: Few Squamous Epithelial Cells Performed By: #### U TOX2, UAWMIC #### [place] [address] [place] [phone] Glucose Ql (U) Negative Normal Negative [facility] Comment on above: Performed By: #### U TOX2, UAWMIC #### [place] [address] [place] [phone] Hemoglobin/Blood,Ur Negative Normal Negative [facility] Comment on above: Performed By: #### U TOX2, UAWMIC #### [place] [address] [place] [phone] Ketones Ql (U) Negative Normal Negative [facility] Comment on above: Performed By: #### U TOX2, UAWMIC #### [place] [address] [place] [phone] Leukest 2+ Critically abnormal Negative [facility] Comment on above: Performed By: #### U TOX2, UAWMIC #### [facility] [address] [facility] [address] [place] [phone] Nitrite Ql (U) Negative Normal Negative [facility] Comment on above: Performed By: #### U TOX2, UAWMIC #### [facility] [address] [place], [place] [address] pH (Bld) 7.0 Normal 4.5-8.[address] [facility] Comment on above: Performed By: #### U TOX2, UAWMIC #### [facility] [address] [place], [place] [address] Protein (U) [Mass/Vol] Negative Normal Negative [facility] Comment on above: Performed By: #### U TOX2, UAWMIC #### [place] [address] [place] [address] RBC (U) [#/Vol] 0-3 Normal 0-[address] [facility] Comment on above: Performed By: #### U TOX2, UAWMIC #### [place] [address] [place], [place] [address] Specific [place], Ur 1.006 Normal 1.005-1 .[address] [facility] Comment on above: Performed By: #### U TOX2, UAWMIC #### [place] [address] [place], [place] [address] Urine Nolberto Comment SEE COMMENT Normal [facility] Comment on above: Result Comment: N/A Performed By: #### U TOX2, UAWMIC #### [place] [address] [place] [address] Urobilinogen Qn (U) Normal Normal Normal [facility] Comment on above: Performed By: #### U TOX2, UAWMIC #### [facility] [address] [place], [place] [address] WBC (Bld) [#/Vol] 11-25 Critically abnormal 0-[address] [facility] Comment on above: Performed By: #### U TOX2, UAWMIC #### [facility] [address] [place], [place] [address] Urine Cultureon 05-08-2019 Bacteria identified Cx Nom (U) Sp. Request/Comment: - Specimen received in preservative Culture Result - No growth (<1,000 CFU/ml) Normal [facility] Comment on above: Performed By: #### C BENJAMIN CMP #### [place] [address] Vitamin B12on 05-08-2019 Cobalamin (Vitamin B12) [Mass/Vol] 1214 pg/mL Normal 232-1245 [facility] Vitamin D 25 Hydroxyon 05-08 Vitamin D 25 Hydroxy 6.1 ng/mL Low 31.0-80.0 [facility] Comment on above: Result Comment: Clas sification of 25 [place] Vitamin D status: Insufficiency/Moderate Deficiency: < or = 30 ng/mL Sufficiency/Optimal Levels: 31 to 80 ng/mL Toxicity: > 100 ng/mL Test performed by chemiluminescent immunoassay. Performed By: #### V ITD #### [place] [address] Blood Cultureon 05-07-2019 Bacteria identified Cx Nom (Bld) Culture Result - No growth 5 days Normal [facility] Comment on above: Performed By: #### C BENJAMIN CMP #### [place] [address] CBC and Differentialon 05-07 Abs Baso <0.03 Normal <0.[address] [facility] Comment on above: Performed By: #### C BCKRYSTALF, CMP #### [place] [address] Abs [place] 0.59 k/uL Normal <0.[address] [facility] Comment on above: Performed By: #### C BCKRYSTALF, CMP #### [place] [phone] Abs Neut 3.97 k/uL Normal 1.45-7.[address] [facility] Comment on above: Performed By: #### C BCKRYSTALF, CMP #### [address], [place] [address] Absolute nRBC <0.01 Normal <0.[address] [facility] Comment on above: Performed By: #### C BCDIF, CMP #### [place] [address] [place] [phone] Basophils/100 WBC (Bld) 0.3 % Normal [facility] Comment on above: Performed By: #### C BCDIF, CMP #### [place] [address] [place] [address] DTYPE Auto Diff Normal [facility] Comment on above: Performed By: #### C BCDIF, CMP #### [place] [address] Eosinophils (Bld) [#/Vol] 0.03 10*3/uL Normal <0.[address] [facility] Comment on above: Performed By: #### C BCDIF, CMP #### [place] [address] [place] [address] Eosinophils/100 WBC (Bld) 0.5 % Normal [facility] Comment on above: Performed By: #### C BCDIF, CMP #### [place] [address] [place] [address] Erythrocyte distribution width (RBC) [Ratio] 13.2 % Normal 11.5-15.[address] [facility] Comment on above: Performed By: #### C BCDIF, CMP #### [place] [address] [place] [address] Hematocrit (Bld) [Volume fraction] 39.9 % Normal 36.0-46.[address] [facility] Comment on above: Performed By: #### C BCDIF, CMP #### [place] [address] [place] [phone] Hemoglobin (Bld) [Mass/Vol] 14.4 g/dL Normal 11.5-15.[address] [facility] Comment on above: Performed By: #### C BCDIF, CMP #### [place] [address] [place], [place] [address] Lymphocytes (Bld) [#/Vol] 1.23 10*3/uL Normal 1.00-4.[address] [facility] Comment on above: Performed By: #### C BCDIF, CMP #### [place] [address] [place], [place] [address] Lymphocytes/100 WBC (Bld) 21.0 % Normal [facility] Comment on above: Performed By: #### C BCDIF, CMP #### [address] [address] MCH (RBC) [Entitic mass] 40.6 pG High 26.0-34.[address] [facility] Comment on above: Performed By: #### C BCDIF, CMP #### [address] [address] MCHC (RBC) [Mass/Vol] 36.1 g/dL High 30.5-36.0 [facility] Comment on above: Performed By: #### C BCDIF, CMP #### [place] [address] [place], [place] [address] MCV (RBC) [Entitic vol] 112.4 fL High 80.0-100.[address] [facility] Comment on above: Performed By: #### C BCDIF, CMP #### [place] [address] [place], [place] [address] Monocytes/100 WBC (Bld) 10.1 % Normal [facility] Comment on above: Performed By: #### C BCDIF, CMP #### [place] [address] [place], [place] [address] Neutrophils/100 WBC (Bld) 68.1 % Normal [facility] Comment on above: Performed By: #### C BCDIF, CMP #### [facility] [address] [place] [address] NRBCs 0.0 /100 WBC Normal [address] [facility] Comment on above: Performed By: #### C BCDIF, CMP #### [place] [address] [place] [address] Platelet mean volume (Bld) [Entitic vol] 9.7 fL Normal 9.0-12.[address] [facility] Comment on above: Performed By: #### C BCDIF, CMP #### [place] [address] Platelets (Bld) [#/Vol] 237 10*3/uL Normal 150-[address] [facility] Comment on above: Performed By: #### C BCDIF, CMP #### [place] [phone] RBC (Bld) [#/Vol] 3.55 10*6/uL Low 3.90-5.20 [facility] Comment on above: Performed By: #### C BCDIF, CMP #### [place] [address] Review Done Normal [facility] Comment on above: Performed By: #### C BCDIF, CMP #### [place] [address] [place] [phone] WBC (Bld) [#/Vol] 5.85 10*3/uL Normal 3.70-11.00 [facility] Comment on above: Performed By: #### C BCDIF, CMP #### [place] [address] CKon 05-07-2019 CK [Catalytic activity/Vol] 84 U/L Normal 42-[address] [facility] Comment on above: Performed By: #### C BCDIF, CMP #### [address] [place] [address] Comp Metabolic Panelon 05-07 Albumin [Mass/Vol] 3.9 g/dL Normal 3.9-4.9 [facility] Comment on above: Performed By: #### C BCDIF, CMP #### [facility] [address] [place], [place] [address] ALP [Catalytic activity/Vol] 113 U/L Normal 34-[address] [facility] Comment on above: Performed By: #### C BCDIF, CMP #### [facility] [address] [place] [address] ALT [Catalytic activity/Vol] 27 U/L Normal 7-[address] [facility] Comment on above: Performed By: #### C BCDIF, CMP #### [place] [address] [place] [address] Anion gap [Moles/Vol] 15 mmol/L Normal 9-18 [facility] Comment on above: Performed By: #### C BCDIF, CMP #### [facility] [address] [place] [address] AST [Catalytic activity/Vol] 51 U/L High 13-[address] [facility] Comment on above: Performed By: #### C BCDIF, CMP #### [facility] [address] [place] [address] Bilirubin [Mass/Vol] 0.6 mg/dL Normal 0.2-1.3 [facility] Comment on above: Performed By: #### C BCDIF, CMP #### [facility] [address] [place] [address] Calcium [Mass/Vol] 9.5 mg/dL Normal 8.5-10.2 [facility] Comment on above: Performed By: #### C BCDIF, CMP #### [facility] [address] [place] [phone] Chloride [Moles/Vol] 101 mmol/L Normal 97-105 [facility] Comment on above: Performed By: #### C BCKRYSTALF, CMP #### [facility] [address] [place], [place] [address] CO2 [Moles/Vol] 22 mmol/L Normal 22-[address] [facility] Comment on above: Performed By: #### C BCKRYSTALF, CMP #### [facility] [address] [place] [address] Creatinine [Mass/Vol] 0.48 mg/dL Low 0.58-0.96 [facility] Comment on above: Performed By: #### C BCKRYSTALF, CMP #### [place] [address] [place] [address] eGFR- Amer. >60 Normal [facility] Comment on above: Performed By: #### C BCDIF, CMP #### [place] [address] [place] [address] GFR/1.73 sq M predicted among non-blacks MDRD (S/P/Bld) [Vol rate/Area] mL/min/{1.73_m2} Normal [facility] Comment on above: Result Comment: eGFR (Estimated [...] reflect actual GFR. Performed By: #### C BCDIF, CMP #### [facility] [address] [place], [place] [address] Glucose [Mass/Vol] 103 mg/dL High 74-99 [facility] Comment on above: Result Comment: The [place] Diabetes Association (ADA) provides guidance for cutoff [...] Standards of Medical Care in Diabetes 2016, [place] [employer]. Diabetes Care. 2016.39(Suppl 1). Performed By: #### C BENJAMIN, CMP #### [facility] [address] [place], [place] [address] Potassium [Moles/Vol] 3.4 mmol/L Low 3.7-5.1 [facility] Comment on above: Performed By: #### C BENJAMIN, CMP #### [facility] [address] [place], [place] [address] Protein [Mass/Vol] 7.2 g/dL Normal 6.3-8.0 [facility] Comment on above: Performed By: #### C EVERARDOF, CMP #### [facility] [address] [place], [place] [address] Sodium [Moles/Vol] 138 mmol/L Normal 136-144 [facility] Comment on above: Performed By: #### C BENJAMIN, CMP #### [facility] [address] [place], [place] [address] Urea nitrogen [Mass/Vol] 4 mg/dL Low 7-[address] [facility] Comment on above: Performed By: #### C BENJAMIN, CMP #### [facility] [address] [place], [place] [address] ED NOTEon 05-07-2019 ED NOTE HNO ID: [id number] Author: Claudia Person) KELECHI Segura Service: Emergency Medicine Author Type: [...] LIP of any changes in condition. Normal [facility] ED NOTE HNO ID: [id number] Author: Smita GallegosRn) KELECHI Lyles Service: ? Author Type: Registered Nurse Type: ED Notes Filed: 05/07/2019 8:57 PM Note Text: Bed: E13-B07 Expected date: 05/07/19 Expected time: 8:52 PM Means of arrival: Comments: Normal [facility] ED PROV NOTEon 05-07-2019 ED PROV NOTE HNO ID: [id number] Author: Felix Resendiz Service: Emergency Medicine Author [...] physical therapy. MRI brain on 08/31/18 at [facility] was significant only for nonspecific Mild white [...] no recent illness or fever to suggest Guillain-Pontiac Syndrome. Urine tox is negative. Patient treated [...] pending Discussed with Dr Frank at [facility], who accepted patient for transfer and admit to general medicine service. - OARRS reviewed - significant for suboxone therapy SIGNATURE: LENORA Reynaga) Jv 05/08/19 0016 Lon Trevino) [place] 05/08/19 0031 Attending Note I have personally performed a face to face assessment of the patient and have reviewed the PA/ZIGZAG TOPSTITCHER note. My vu findings include: 29 yo [...] 4:35 PM Felix Resendiz 05/09/[address] [facility] Heavy Metls Shaun Willett 05-07 Arsenic Blood <10.0 Normal 0.0-12.[address] [facility] Comment on above: Result Comment: (NOT E) [...] exposure. Test developed and characteristics determined by [employer]. See Compliance Statement B: [employer]/CS Performed By: #### C BCDIF, CMP #### [facility] [address] [place], [place] [address] Lead Blood 2.8 ug/dL Normal 0.0-4.[address] [facility] Comment on above: Result Comment: (NOT E) [...] present. Test developed and characteristics determined by [employer]. See Compliance Statement B: [employer] Performed By: #### C BCDIF, CMP #### [facility] [address] [place], [place] [address] Mercury, Blood <2.5 Normal 0.0-10.[address] [facility] Comment on above: Result Comment: (NOT E) [...] ug/L. Test developed and characteristics determined by [employer]. See Compliance Statement B: [employer]/CS Performed by [employer], [facility] [address] [email or web address], George Arguello MD, Lab. Director Performed By: #### C BCDIF, CMP #### [facility] [address] [place], [place] [address] Lipaseon 05-07-2019 Lipase [Catalytic activity/Vol] 23 U/L Normal 16-[address] [facility] Comment on above: Performed By: #### L IPA #### [facility] [address] [place], [place] [address] Vital Signs Date Time Vital Sign Value Performing Clinician Facility 08-23-2024 08:14-0400 Body height 167.6 cm [facility]ado [facility]-23-[facility]24 08:14-0400 Body temperature 98.49 [degF] Ericarashid Nguyễnley DPM Work Phone: [facility] [employer] 08-23-2024 08:14-0400 Diastolic blood pressure 72 mm[Hg] Erica Maldonado DPM Work Phone: [facility] [employer] 08-23-2024 08:14-0400 Heart rate 87 /min Erica Maldonado DPM Work Phone: [facility] [employer] 08-23-2024 08:14-0400 Respiratory rate 14 /min Erica Maldonado DPM Work Phone: [facility] [employer] 08-23-2024 08:14-0400 SaO2% (BldA) [Mass fraction] 96 % Erica Maldonado DPM Work Phone: [facility] [employer] 08-23-2024 08:14-0400 Systolic blood pressure 105 mm[Hg] Erica Maldonado DPM Work Phone: [facility] 08-23-2024 08:07-0400 Body mass index (BMI) [Ratio] 23.08 kg/m2 Erica Maldonado DPM Work Phone: [facility] 08-23-2024 08:07-0400 Body weight 64.86 kg Erica Maldonado DPM Work Phone: [facility] 09-16-2023 12:18-0500 Diastolic blood pressure 74 mm[Hg] MD Carl Child Work Phone: [facility] 09-16-2023 12:18-0500 Heart rate 84 /min MD Carl Child Work Phone: [facility] 09-16-2023 12:18-0500 Respiratory rate 16 /min MD Carl Child Work Phone: [facility] 09-16-2023 12:18-0500 SaO2% (BldA) [Mass fraction] 98 % MD Carl Child Work Phone: [facility] 09-16-2023 12:18-0500 Systolic blood pressure 122 mm[Hg] MD Carl Child Work Phone: [facility] 09-16-2023 12:00-0500 Body temperature 97.9 [degF] MD Carl Child Work Phone: [facility] 09-16-2023 06:00-0500 Body weight 60 kg MD Carl Child Work Phone: [facility] 09-13-2023 13:19-0500 Body height 167.64 cm MD Carl Child Work Phone: [facility] 09-11-2023 20:48-0500 Diastolic blood pressure 74 mm[Hg] MD Carl Child Work Phone: [facility] 09-11-2023 20:48-0500 Heart rate 84 /min MD Carl Child Work Phone: [facility] 09-11-2023 20:48-0500 Respiratory rate 18 /min MD Carl Child Work Phone: [facility] 09-11-2023 20:48-0500 SaO2% (BldA) [Mass fraction] 98 % MD Carl Child Work Phone: [facility] [facility] 09-11-2023 20:48-0500 Systolic blood pressure 108 mm[Hg] MD Carl Child Work Phone: [facility] 09-11-2023 17:06-0500 Body height 167.64 cm MD Carl Child Work Phone: [facility] 09-11-2023 17:06-0500 Body weight 52.7 kg MD Carl Child Work Phone: [facility] 09-11-2023 17:04-0500 Body temperature 98.9 [degF] MD Carl Child Work Phone: [facility] 12-16-2021 10:43-0500 Body height 167.64 cm MD Carl Child Work Phone: [facility] 12-16-2021 10:43-0500 Body mass index (BMI) [Ratio] 20.4 kg/m2 MD Carl Child Work Phone: [facility] 12-16-2021 10:43-0500 Body temperature 98.8 [degF] MD Carl Child Work Phone: [facility] 12-16-2021 10:43-0500 Body weight 57.4 kg MD Carl Child Work Phone: [facility] 12-16-2021 10:43-0500 Diastolic blood pressure 56 mm[Hg] MD Carl Child Work Phone: [facility] 12-16-2021 10:43-0500 Heart rate 102 /min MD Carl Child Work Phone: [facility] 12-16-2021 10:43-0500 Respiratory rate 18 /min MD Carl Child Work Phone: [facility] 12-16-2021 10:430500 SaO2% (BldA) [Mass fraction] 98 % MD Carl Child Work Phone: [facility] 12-16-2021 10:43-0500 Systolic blood pressure 123 mm[Hg] MD Carl Child Work Phone: [facility] Encounters Encounter Date Encounter Type Care Provider Facility Start: 08-23-2024 End: 08-23-2024 ambulatory ERICA Ta [facility] Start: 08-23-2024 End: 08-23-2024 Subsequent hospital visit by physician Erica Maldonado DPM Work Phone: [facility] Start: 08-20-2024 ambulatory ERICA Ta [facility] Start: 09-11-2023 End: 09-16-2023 Evaluation and management of inpatient Gem Velasco Facility:[facility] Start: 09-11-2023 End: 09-16-2023 Evaluation and management of inpatient MD Carl Child Work Phone: [facility] Work Phone: Start: 06-11-2023 End: 07-30-2023 ambulatory UNKNOWN PROVIDER Facility:[facility] Start: 12-16-2021 End: 12-16-2021 Emergency department patient visit MD Carl Child Work Phone: [facility] Start: 06-16-2021 End: 06-16-2021 ambulatory ONI CARMICHAEL Facility:[facility] Start: 07-04-2020 Encounter for genera l adult medical examination without abnormal findings DR CARL CHILD [facility] Start: 07-02-2020 End: 07-03-2020 ambulatory CORNELIA SMILEY Facility:[facility] Start: 07-01-2020 End: 07-02-[address] CARL CHILD Facility:[facility] Start: 07-01-2020 End: 07-02-2020 Encounter for general adult medical examination without abnormal findings DR CARL CHILD Facility:[facility] Procedures Date Procedure Procedure Detail Performing Clinician Start: 08-23-2024 Urine test visual color cmprsn meths Erica Maldonado DPM Work Phone: Start: 09-11-2023 CT of head without contrast MD Carl Child Work Phone: Start: 09-11-2023 Urine culture MD Demarcus Child Work Phone: Plan of Treatment Date Care Activity Detail Author Start: 08-23-2024 End: 08-23-2024 Arthrd w/xtnsr hallucis longus tr 1st metar nck FOOT ARTHRODESIS [place] toe of right foot Hammer toe of right foot 08/23/2024 9:24 AM [facility] Start: 08-23-2024 End: 08-23-2024 Correction hammertoe TOE HAMMER REPAIR Mallet toe of right foot Hammer toe of right foot 08/23/2024 9:24 AM [facility] Start: 07-01-2024 COVID-19 Vaccine ( season) COVID-19 Vaccine () [facility] Start: 05-31-2024 Influenza vaccination Flu vaccine (# 1) [facility] Start: 09-16-2023 [facility] Start: 09-12-2023 [facility] Start: 09-11-2023 Consultation [facility] Start: 09-11-2023 Hospital admission [facility] Start: 09-11-2023 [facility] Start: 09-11-2023 CT of head without contrast CT head/brain wo con [facility] Start: 09-11-2023 CT Unspecified body region WO contrast [facility] Start: 09-11-2023 Bacteria identified in Urine by Culture [facility] Start: 02-07-2018 Screening for malign ant neoplasm of cervix [facility] Start: 02-07-2009 Screening for malign ant neoplasm of cervix Pap smear [facility] Start: 02-07-2007 DTaP/Tdap/Td vaccine (1 - Tdap) DTaP/Tdap/Td vaccine (1 - Tdap) [facility] Start: 02-07-2007 Hepatitis B vaccine (1 of 3 - 19+ 3-dose series) Hepatitis B vaccine (1 of 3 - 19+ 3-dose series) [facility] Start: 02-07-2001 Varicella vaccine (1 of 2 - 13+ 2-dose series) Varicella vaccine (1 of 2 - 13+ 2-dose series) [facility] Start: 2000 Depression Screen Depression Screen [facility] Albumin/Globulin ratio [facility] Anion gap measurement [facility] Basophils [#/volume] in Blood by Automated count [facility] Basophils/100 leukoc ytes in Blood by Automated count [facility] Eosinophils [#/volum e] in Blood [facility] Eosinophils/100 leukocytes in Blood by Automated count [facility] Erythrocyte distribu tion width [Ratio] by Automated count [facility] Erythrocytes [#/volu me] in Blood [facility] Globulin [Mass/volum e] in Serum [facility] Hematocrit [Volume Fraction] of Blood [facility] Hemoglobin [Mass/vol ume] in Blood [facility] INR in Platelet poor plasma by Coagulation assay [facility] Leukocytes [#/volume ] corrected for nucleated erythrocytes in Blood by Automated coun [facility] Leukocytes [#/volume ] in Blood [facility] Lymphocytes [#/volum e] in Blood by Automated count [facility] Lymphocytes/100 leukocytes in Blood by Automated count [facility] MCH [Entitic mass] b y Automated count [facility] MCHC [Mass/volume] b y Automated count [facility] MCV [Entitic volume] by Automated count [facility] Monocytes [#/volume] in Blood by Automated count [facility] Monocytes/100 leukoc ytes in Blood by Automated count [facility] Neutrophils [#/volum e] in Blood by Automated count [facility] Neutrophils/100 leukocytes in Blood by Automated count [facility] Nucleated erythrocyt es [Presence] in Blood by Automated count [facility] Patient Education [facility] Work Phone: Patient referral [facility] Work Phone: Platelet mean volume [Entitic volume] in Blood by Automated count [facility] Platelets [#/volume] in Blood [facility] Prothrombin time (PT) [facility] Payers Date Payer Category Payer Self-pay [id number] 2023 Unknown 2022 Medicaid [id number] 1990 Unknown [id number] 2.16.84 [id number] 1988 Unknown [id number] 2.16.84 [id number] 1988 Unknown [id number] 2.16.84 [id number] 1988 Unknown [id number] 2.16. [id number] 1988 Unknown [id number] 2.16.8 [id number] 1959 Unknown [id number] Medicaid [employer] [id number] 501 [id number] Unknown [id number] 2.16.8 [id number] Social History Date Type Detail Facility Start: 12-16-2021 End: 09-11-2023 Tobacco smoking status NHIS Smoker (finding) [facility] Start: 1990 Sex Assigned At Female F [facility] Start: 08-22-2024 Tobacco smoking stat us [facility] Ex-smoker [facility] History of tobacco use Cigarette Smoker B on [employer] Start: 08-22-2024 Tobacco use and exposure Smokeless tobacco non-user [facility] Start: 08-23-2024 Alcoholic beverage intake Current drinker of alcohol (finding) [facility] Start: 11-30-2014 History of Social function [facility] Start: 11-30-2014 Tobacco use panel [facility] Start: 08-22-2024 Alcohol Comment socially [facility] Start: 1990 Sex assigned at Not on file B on [facility] Goals Date Patient Goal Desired Activity /State Functional Status Date Assessment Result Facility 09-16-2023 Functional status Patient at Baseline [facility] Work Phone: Mental Status Date Assessment Result Facility 09-16-2023 Cognitive function Cognitive Sta tus Patient at Baseline [facility] Work Phone: Clinical Notes 09-11-2023 to 08-23-2024 Aure Taylor RN - 08/23/2024 9:00 AM Aure Bazan RN - 08/23/2024 8:16 AM Tricia Quintero RN - 08/22/2024 3:14 PM Tricia Quintreo RN - 08/22/2024 12:58 PM EDT Note Date & Type Note Facility 08-23-2024 History of Presen t illness Narrative Pt states she would not be able to tolerate a spinal or local anesthetic for surgery so pt states she wishes to reschedule. Dr. Maldonado's office will call her to reschedule, informed pt to call his office if they do not call her. Pt's IV removed, dresses self, ambulates out of department with belongings and crutches with Otoniel price. Also instructed pt not to smoke marijuana the day of surgery to prevent cancelling the next time she is rescheduled. Pt verbalizes understanding. Pt states she smoked marijuana this morning and vaped this morning. Patient instructed on the pre-operative, intra-operative, and post-operative process. Patient instructed on NPO status. Medication instructions and pre operative instruction sheet reviewed with the patient. Anti-bacterial soap skin prep instructions reviewed with patient. Patient will hold Ibuprofen starting now. Attempted PAT phone call; no answer; message left to return PAT phone call. Attempted PAT phone call; no answer; message left to return PAT phone call. I then called 's office. I left a message on Tresa's . I explained that we have called the patient 3 times, no response from the patient. She does not have any information in our system, no allergies, medications that she takes. Her surgery is tomorrow. I requested her assistance getting a hold of the patient. Attempted PAT phone call; no answer; message left to return PAT phone call. Attempted PAT phone call; no answer; message left to return PAT phone call. documented in this encounter [facility] 09-15-2023 Progress note Note Date/Time September 15, 2023 3:35pm [facility] [address] [place] [address] Hospitalist Progress Note Signed Patient: Karyn Estes MR#: [id number] : 1990 Acct:[id number] Age/Sex: 33 / F Adm Date: 3 Loc: Room: 5N1231-7 Type: ADM IN Attending Dr: Tyrone Barron [...] of care and confirmed it with the resident/student/PAINTING DEPARTMENT SUPERVISOR. ======== Ms. Estes says she is feeling okay today but very tired. She denies abdominal pain, tremors, hallucinations, N/V or diarrhea. Per nursing, she was restless again last night and had to be given 14 Ativan per [facility] protocol. She has been resting comfortably since [...] % Nacl IV 09/10/24 21:44 Not Given .[id number] VIKTOR Dexmedetomidine HCl 400 mcg/ 100 mls [...] withdrawal Patient began having visual hallucinations 09/12. [place] slipped after attempting to leave AMA. Continued hallucinations, confusion, restlessness. -Continue CIWA protocol and thiamine supplementation. -CO2 monitor due to decreased responsiveness/periods of apnea. Seizure/bruise Patient presented to ER from detox center due to concern for withdrawal seizure. Bruise on right temporal area. -Head CT revealed no acute intracranial trauma. Anxiety/depression-chronic -continue home medications DVT prophylaxis: Lovenox Documented By: Tyrone Barron MD 09/15/23923 Signed By: <Electronically signed by Tyrone Barron MD> 09/15/23 2742 [facility] Work Phone: 1(532) 513-852211-15-2023 Progress note Author Tyrone Barron [facility] September 14, 2023 2:13pm Note Date/Time September 14, 2023 2:13pm [facility] [address] [place] [address] Hospitalist Progress Note Signed Patient: Karyn Estes MR#: [id number] : 1990 Acct:[id number] Age/Sex: 33 / F Adm Date: 3 Loc: Room: [address] [place] [address] Type: ADM IN Attending Dr: Tyrone Barron [...] of care and confirmed it with the resident/student/PAINTING DEPARTMENT SUPERVISOR. Patient is resting comfortably in bed. Per [...] % Nacl IV 09/10/24 21:44 Not Given .[id number] VIKTOR Dexmedetomidine HCl 400 mcg/ 100 mls [...] withdrawal Patient began having visual hallucinations 09/12. [place] slipped after attempting to leave AMA. Continued hallucinations, confusion, restlessness. -Continue CIWA protocol and thiamine supplementation. -CO2 monitor due to decreased responsiveness/periods of apnea. Seizure/bruise Patient presented to ER from [facility] due to concern for withdrawal seizure. Bruise on right temporal area. -Head CT revealed no acute intracranial trauma. Anxiety/depression-chronic -continue home medications DVT prophylaxis: Lovenox Documented By: Tyrone Barron MD 09/14/23 0935 Signed By: <Electronically signed by Tyrone Barron MD> 09/14/23 2045 [facility] Work Phone: 1(197) 506-354711-14-2023 Progress note Author Tyrone Barron [facility] September 13, 2023 11:41am Note Date/Time September 13, 2023 11:41am [facility] [address] [place] [address] Hospitalist Progress Note Signed Patient: Karyn Estes MR#: [id number] : 1990 Acct:[id number] Age/Sex: 33 / F Adm Date: 3 Loc: Room: [address] [place] [address] Type: ADM IN Attending Dr: Tyrone Barron [...] of care and confirmed it with the resident/student/PAINTING DEPARTMENT SUPERVISOR. Ms. Estes is feeling much better today. [...] % Nacl IV 09/10/24 21:44 85 mls/hr .[id number] VIKTOR Administration Dexmedetomidine HCl 400 mcg/ 100 [...] Patient began having visual hallucinations yesterday afternoon. [place] slipped after attempting to leave AMA. -Continue CIWA protocol and thiamine supplementation. Seizure/bruise Patient presented to ER from detox center due to concern for withdrawal seizure. Bruise on right temporal area. -Head CT revealed no acute intracranial trauma. Anxiety/depression-chronic -continue home medications DVT prophylaxis: Lovenox Documented By: Tyrone Barron MD 09/13/23 113 Signed By: <Electronically signed by Tyrone Barron MD> 09/13/23 1141 [facility] Work Phone: 1(177) 209-769511-14-2023 Progress note Author Tyrone Barron [facility] September 13, 2023 11:35am Note Date/Time September 12, 2023 12:38pm [facility] [address] [place] [address] Hospitalist Progress Note Signed Patient: Karyn Estes MR#: [id number] : 1990 Acct:[id number] Age/Sex: 33 / F Adm Date: 3 Loc: Room: [address] [place] [address] Type: ADM IN Attending Dr: Tyrone Barron [...] of care and confirmed it with the resident/student/PAINTING DEPARTMENT SUPERVISOR. Patient is resting comfortably in bed this [...] % Nacl IV 09/10/24 21:44 85 mls/hr .[id number] VIKTOR Administration Lorazepam 0 mg 09/11/23 21:33 [...] signed by Tyrone Barron MD> 09/13/23 1135 [facility] Work Phone: 1(160) 616-335411-13-2023 Progress note Author Gregory Raya [facility] September 12, 2023 10:32am Note Date/Time September 12, 2023 10:33am [facility] [address] [place] [id number] Progress Note Signed Patient: Karyn Estes MR#: [id number] : 1990 Acct:[id number] Age/Sex: 33 / F Adm Date: 3 Loc: Room: [address] [place] [address] Type: ADM IN Attending Dr: Tyrone Barron [...] as needed Documented By: Gregory Raya MD 09/12/23 103 Signed By: <Electronically signed by Gregory Raya MD> 09/12/23 1032 [facility] Work Phone: 1(427) 170-363511-12-2023 History and physical note Author Gem Velasco [facility] September 11, 2023 9:33pm Note Date/Time September 11, 2023 9:25pm [facility] [address] [place] [address] Hospitalist H&P Signed Patient: Karyn Estes MR#: [id number] : 1990 Acct:[id number] Age/Sex: 33 / F Adm Date: 3 Loc: Room: [address] [place] [address] Type: ADM IN Attending Dr: Gem Velasco MD Copies to: MD Gem Malloy MD~ HPI DATE OF EXAMINATION: 09/11/23 CHIEF COMPLAINT: Concern for withdrawal seizure. HISTORY OF PRESENT ILLNESS: Patient is a 33-year-old female with history of alcohol abuse, she was sent to the emergency room by EMS from [facility] with concern for withdrawal seizure. Apparently [...] of Systems Unobtainable due to mental status [facility] Medical History Anxiety Colitis Depression History of [...] % (Auto) 22.7 % (.) 09/11/23 18:51 [place] % (Auto) 7.3 % (.) 09/11/23 18:51 Eos % (Auto) 0.8 % (.) 09/11/23 18:51 Baso % (Auto) 0.4 % (.) 09/11/23 18:51 Nucleat RBC Rel Count 0.1 /100 WBC (0-0.5) 09/11/23 18:51 Neut # (Auto) 3.1 x10E3/uL (1.8-7.7) 09/11/23 18:51 Lymph # (Auto) 1.0 x10E3/uL (1.00-4.8) 09/11/23 18:51 [place] # (Auto) 0.3 x10E3/uL (0.0-0.8) 09/11/23 18:51 [...] L 09/11/23 18:51 Creatinine 0.68 mg/dL (0.60-1.20) 11 18:51 Est GFR (CKD-EPI) > 60.0 mL/Min 09/11/23 18:51 Glucose 91 mg/dL (70-100) 09/11/23 18:51 Calcium 9.1 mg/dL (8.6-10.3) 09/11/23 18:51 Magnesium 1.7 mg/dL (1.9-2.7) L 09/11/23 18:51 Prolactin 10.97 ng/mL (3.34-26.72) 09/11/23 18:51 Urine Color Yellow (Yellow) 09/11/23 18:37 Urine Appearance Cloudy (Clear) A 09/11/23 18:37 Urine pH 6.0 (5.0-9.0) 09/11/23 18:37 Ur Specific [place] 1.005 (1.001-1.030) 09/11/23 18:37 Urine Protein Negative [...] <Electronically signed by Gem Velasco MD> 09/11/232132 [facility] Work Phone: Discharge summary Author Tyrone Barron [facility] September 16, 2023 3:02pm Note Date/Time September 16, 2023 3:02pm [facility] [address] [place] [address] Discharge Summary Signed Patient: Karyn Estes MR#: [id number] : 1990 Acct:[id number] Age/Sex: 33 / F Adm Date: 3 Loc: Room: [address] [place] [address]: Tyrone Barron MD Copies to: [...] who presented to the emergency department from [facility], after she woke up in the [...] <Electronically signed by Tyrone Barron MD> 09/16/23 1502 [facility] Work Phone: Evaluation noteNo assessment information available [facility] Work Phone: Evaluation note* Diagnosis Onset Date Resolution Status Alcohol withdrawal acute Seizure acute [facility] Work Phone: Evaluation note* Diagnosis Onset Date Resolution Status Alcohol withdrawal acute Anxiety acute Bruise of face acute Depression acute Seizure acute [facility] Work Phone: History and physical note Author Gem Velasco [facility] September 11, 2023 9:33pm Note Date/Time September 11, 2023 9:25pm [facility] [address] [place] [address] Hospitalist H&P Signed Patient: Karyn Estes MR#: [id number] : 1990 Acct:[id number] Age/Sex: 33 / F Adm Date: 3 Loc: Room: [address] [place] [address] Type: ADM IN Attending Dr: Gem Velasco MD Copies to: MD Gem Malloy MD~ HPI DATE OF EXAMINATION: 09/11/23 CHIEF COMPLAINT: Concern for withdrawal seizure. HISTORY OF PRESENT ILLNESS: Patient is a 33-year-old female with history of alcohol abuse, she was sent to the emergency room by EMS from [facility] with concern for withdrawal [...] of Systems Unobtainable due to mental status [facility] Medical History Anxiety Colitis Depression History of [...] % (Auto) 22.7 % (.) 09/11/23 18:51 [place] % (Auto) 7.3 % (.) 09/11/23 18:51 Eos % (Auto) 0.8 % (.) 09/11/23 18:51 Baso % (Auto) 0.4 % (.) 09/11/23 18:51 Nucleat RBC Rel Count 0.1 /100 WBC (0-0.5) 09/11/23 18:51 Neut # (Auto) 3.1 x10E3/uL (1.8-7.7) 09/11/23 18:51 Lymph # (Auto) 1.0 x10E3/uL (1.00-4.8) 09/11/23 18:51 [place] # (Auto) 0.3 x10E3/uL (0.0-0.8) 09/11/23 18:51 [...] pH 6.0 (5.0-9.0) 09/11/23 18:37 Ur Specific [place] 1.005 (1.001-1.030) 09/11/23 18:37 Urine Protein Negative [...] <Electronically signed by Gem Velasco MD> 09/11/232132 [facility] Work Phone: Hospital Discharge instructions Additional Instructions Take the antibiotics Bactrim and Keflex both twice a day for 10 days take until completed Ibuprofen every 6 hours as needed for pain You may want to sports the area after using the restroom to clean it You may not soak in a bathtub but you can take a shower See CLAY WASHER as scheduled next month Return to the ER immediately for worsening pain swelling fever chills vomiting or any [facility] Work Phone: Summary Purpose Family History No Family History Records Found Relationship Condition Age at Onset Recorded Date/T carrie father Malignant neoplasm of lung Unknown Not Specified Family history of mental disorder Unknow n Advance Directives No Advanced Directives Records Found Advance Directive Response Recorded Date/ Time Advance Directives No September 05, 2018 3:35pm Hospital Course Note HNO ID: [id number] Author: Shaylee Whelan Service: Hospital Medicine Author [...] section and content) DATE CREATED AUTHOR 05/11/2019 [facility] DATE CREATED AUTHOR AUTHOR'S ORGANIZ ATION 06/26/[address] [facility] DATE CREATED AUTHOR AUTHOR'S ORGANIZ ATION 06/19/2021 [facility] DATE CREATED AUTHOR AUTHOR'S ORGANIZ ATION 08/29/2023 [facility] [employer] DATE CREATED AUTHOR AUTHOR'S ORGANIZ ATION 09/23/2023 [facility] DATE CREATED AUTHOR AUTHOR'S ORGANIZ ATION 09/02/2024 [facility] Care Teams (unrecognized sec tion and content) [...] MD Primary Care Provider Active Xochilt Beavers [facility] Emergency Provider Active Team Status: Active Member Role Status Dates Carl Child MD Primary Care Provider Active Roby Thakkar DO Emergency Provider Active Gem Velasco MD Admit Provider, Attending Provider Active Nursery Manager Relationship Specialty Start Date End Date Carl Child MD [address] [place] [address] PCP - General 07/19/15 Goals (unrecognized section and content) Goals may be documented in a n alternate sectionGoals may be documented in an alternate section Reason for Visit (unrecogniz ed section and content) Specialty Diagnoses / Procedures Referred By Sherlyn gleason Referred To Contact Diagnoses Mallet toe of right foot Hammer toe of right foot Mallet toe of right foot [M20.5X1] Hammer toe of right foot [M20.41] Procedures AK ARTHRD W/XTNSR HALLUCIS LONGUS TR 1ST METAR [facility] [place] CORRECTION HAMMERTOE FOOT ARTHRODESIS-right hallux interphalangeal joint fusion, barillas extensor tendon transposition, hudson bunionectomy TOE HAMMER REPAIR-proxivial interphalangeal joint fusion hammetoe correction digits two through four Erica Maldonado, RHINA [address] [place] [address] [place] [address] [facility] [id number] [place] [address] Referral ID Status Reason Start Date Expiration Date Visits Re quested Visits Authorized [id number] 1 1 Scheduled Active and Recently Administ ered Medications (unrecognized section and content) Medication Order 08/21/2024 08/22/2024 08/23/2024 acetaminophen (TYLENOL) tablet 650 mg (COMPLETED) 650 mg, Oral, ONCE, 1 dose, On Hilda 08/23/24 at 0800, Maximum dose of acetaminophen is 4000 mg from all sources in 24 hours., Pre-op (day of surgery) 0837 (Given - Provid er: Aure Taylor RN) ceFAZolin (ANCEF) 2,000 mg in sterile water 20 mL IV syringe 2,000 mg, IntraVENous, ONCE, 1 dose, On Hilda 08/23/24 at 0830, Antimicrobial Indications: Surgical Prophylaxis, Administer over 5 mins. Reconstitute 2 g vial with 20 mL Sterile Water. Withdraw entire contents., Pre-op (day of surgery) 0830 (Due) dimenhyDRINATE (DRAMAMINE) tablet 50 mg (COMPLETED) 50 mg, Oral, ONCE, 1 dose, On Hilda 08/23/24 at 0800, Pre-op (day of surgery) 0837 (Given - Provid er: Aure Taylor RN) Continuous Medication Order 08/21/2024 08/22/2024 08/23/2024 lactated ringers IV soln infusion SOLN IntraVENous, at 100 mL/hr, CONTINUOUS, Starting on Hilda 08/23/24 at 0800, Pre-op (day of surgery) 0831 ([employer] [employer] [facility] ider: Aure Taylor RN) FOR RECORDS PERTAINING TO PATIENTS WHO ARE [...] BE BASED ON THE PRIMARY CLINICAL RECORDS. [employer] provides no warranty or guarantee of the accuracy or completeness of information in this document.
--- NOTE | 2024-10-14 10:34 | ED.GENADUL1 ---
HPI HPI - General Adult General Chief complaint: Vaginal Bleeding Stated complaint: VAGINAL BLEEDING, IUD IN PLACE Time Seen by Provider: 10/14/24 09:07 Source: patient Mode of arrival: walk-in Limitations: no limitations Related Data Home Medications ?Medication ?Instructions ?Recorded ?Confirmed lamotrigine 100 mg tablet 100 mg PO Q8H 10/14/24 10/14/24 quetiapine 25 mg tablet 25 mg PO BEDTIME 10/14/24 10/14/24 Allergies Allergy/AdvReac Type Severity Reaction Status Date / Time No Known Drug Allergies Allergy Verified 08/15/23 11:31 Opioid HPI Opioid Management Most Recent Opioid Data: Last Pain Scale 7 08/15/23 11:36 08/15/23 PFSH PFSH Medical History (Updated 08/15/23 @ 13:03 by Piter Baez MD) Alcohol withdrawal seizure ?F10.939 - Alcohol use, unspecified with withdrawal, unspecified (ICD-10) ?R56.9 - Unspecified convulsions (ICD-10) Opioid abuse, in remission ?F11.11 - Opioid abuse, in remission (ICD-10) Bipolar 1 disorder ?F31.9 - Bipolar disorder, unspecified (ICD-10) History of anxiety ?Z86.59 - Personal history of other mental and behavioral disorders (ICD-10) History of depression ?Z86.59 - Personal history of other mental and behavioral disorders (ICD-10) History of alcohol abuse ?F10.11 - Alcohol abuse, in remission (ICD-10) Alcohol abuse with withdrawal ?F10.139 - Alcohol abuse with withdrawal, unspecified (ICD-10) Surgical History (Updated 06/11/23 @ 07:32 by Calvin Herzog) History of tonsillectomy ?Z90.89 - Acquired absence of other organs (ICD-10) Social History Smoking status: Current every day smoker Gender Identity: female Exam Constitutional Vital Signs, click to edit/add: Last Vital Signs Temp 98.1 F 10/14/24 09:04 Pulse 102 H 10/14/24 09:04 Resp 18 10/14/24 09:04 BP 112/82 10/14/24 09:04 Pulse Ox 99 10/14/24 09:04 O2 Del Method Room Air 10/14/24 09:04 Course Vital Signs Vital signs: Vital Signs Temperature 98.1 F 10/14/24 09:04 Pulse Rate 102 H 10/14/24 09:04 Respiratory Rate 18 10/14/24 09:04 Blood Pressure 112/82 10/14/24 09:04 Pulse Oximetry 99 10/14/24 09:04 Oxygen Delivery Method Room Air 10/14/24 09:04 Temperature 98.1 F 10/14/24 09:04 Pulse Rate 102 H 10/14/24 09:04 Respiratory Rate 18 10/14/24 09:04 Blood Pressure 112/82 10/14/24 09:04 Pulse Oximetry 99 10/14/24 09:04 Oxygen Delivery Method Room Air 10/14/24 09:04 Medical Decision Making MDM Narrative Medical decision making narrative: Patient left without being seen. Discharge Plan Discharge Patient Disposition: Left Without Being Seen Discharge Date/Time: 10/14/24 10:16
== END 2024-10-14 10:16 | disposition left against medical advice (07) ==
LOC: ER 09:03
PROVIDERS: Emergency Provider Student in an Organized Health Care Education/Training Program; PCP Family Medicine
DX: Z53.21 Procedure and treatment not carried out due to patient leaving prior to being seen by health care provider (principal); F17.200 Nicotine dependence, unspecified, uncomplicated
CPT/HCPCS: 84703

== ENCOUNTER 2024-10-18 13:57 | Outpatient (OUT) | payer MEDICAID, SELFPAY ==
--- NOTE | 2024-10-18 13:59 | US_ITS ---
The [address] [address] Patient Name: FUNMI ESTES MRN: [id number] date: 1990 Sex: F Assigned Patient Location: Current Patient Location: Accession/Order Number: [id number] Exam Date: 10/18/2024 14:00 Report Date: 10/19/2024 11:44 At the request of: CARL CHILD Procedure: US pelvis EXAMINATION: US pelvis HISTORY: Dysfuctional Uterine Bleeding COMPARISON: No relevant comparison available. FINDINGS: The uterus is normal in size measuring 6.6 x 3.9 x 5.2 cm. The uterus is heterogeneous in echotexture with no focal mass. The uterus is anteverted The endometrium measures 11 mm, heterogeneous The right ovary measures 1.8 x 1.3 x 1.8 cm. Normal color and Doppler flow The left ovary is normal measuring 2.7 x 2.0 x 2.9 cm. Normal color and Doppler flow. 2.2 cm simple cyst No free fluid US/US pelvis IMPRESSION: Heterogeneous endometrium measuring 11 mm, nonspecific Electronically authenticated by: NIESHA MORRIS Date: 10/19/2024 11:44
== END 2024-10-18 13:58 | disposition home or self-care (01) ==
LOC: US 13:57
PROVIDERS: PCP Family Medicine; Visit Provider Family Medicine
DX: N93.8 Other specified abnormal uterine and vaginal bleeding (principal)
CPT/HCPCS: 76856

== ENCOUNTER 2025-04-10 07:31 | Outpatient (OUT) | payer MEDICAID, SELFPAY ==
--- OUTSIDE RECORDS SUMMARY | 2023-09-10 20:00 | XMS_ITS | Continuity of Care Document ---
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 Name Role Phone Tricia Hernandez Unavailable Unavailable [...] - Active Procedures Procedure Date Acute Detox Wool Cleaner Acute Detox Wool Cleaner Acute Detox Wool Cleaner DRUG TEST PRSMV DIR OPT OBS ASSAY OF BREATH ETHANOL Acute Detox Wool Cleaner Acute Detox Wool Cleaner Acute Detox Wool Cleaner Acute Detox Wool Cleaner Acute Detox Wool Cleaner URINE TEST DRUG TEST PRSMV DIR OPT OBS ASSAY OF BREATH ETHANOL ROUTINE VENIPUNCTURE Acute Detox Wool Cleaner COVID-19 Antigen Test COVID-19 Antigen Test OFFICE/OUTPATIENT [...] Diagnoses Date Provider Providers Copied on Encounter [facility], [address] [place] [address], [id number] , [place] tel: [phone] [facility] No Information 3 Klidas Tricia. [address] [place] [address], [id number] , [place]. tel: [phone] [facility], [address] [place] [address], [id number] , [place] tel: [phone] [facility] No Information 3 Klidas Tricia. [address] [place] [address], [id number] , [place]. tel: [phone] [facility], [address] [place], [place], [id number] , [place] tel: [phone] [facility] No Information 0- 3 Jessica Lau. [address] [place], [address], [place]. tel: [phone] [facility], [address] [place], [place], [id number] , [place] tel: [phone] [facility] No Information 3 Klidas Tricia. [address] [place], [place], [id number] , [place]. tel: [phone] [facility], [address] [place], [place], [id number] , [place] tel: [phone] [facility] No Information 3 Klidas Tricia. [address] [place], [place], [id number] , [place]. tel: [phone] [facility], [address] [place], [place], 801018738 , [place] tel: [phone] [facility] No Information 3 Klidas Tricia. [address] [place], [place], [id number] , [place]. tel: [phone] [facility], [address] [place], [place], 207[address]2382 , [place] tel: [phone] [facility] No Information 0 3 Klidas Tricia. [address] [place], [place], [id number] , [place]. tel: [phone] [facility], [address] [place], [place], [id number] , [place] tel: [phone] [facility] No Information 3 Klidas Tricia. [address] [place], [place], [id number] , [place]. tel: [phone] [facility], [address] [place], [place], [id number] , [place] tel: [phone] [facility] No Information 3 Nadiyatayla Tricia. [address] [place] [address], [id number] , [place]. tel:[phone] [facility], [address] [place], [place], 609[address] , [place] tel: [phone] [facility] Encounter For Screening For Covid-19 2 Molly Rojas. [address] [place], [place], [id number] , [place]. tel: [phone] OFFICE/OUTPA TIENT VISIT, [facility], [address] [place] [address], [id number] , [place] tel: [phone] [facility] boil (chief complaint) Body mass index [BMI] 20.0-20.9, adultLeft genital labial abscess 2 Pino [facility] Nidhi. [address] [place] [address], [id number] , [place]. tel: [phone] OFFICE/OUTPA TIENT VISIT, [facility], [address] [place], [place], [id number] , [place] tel: [phone] [facility] Dinah #3LG (chief complaint)U DS (chief complaint) Opioid dependence, uncomplicatedBody mass index [BMI] 19.9 or less, adult 1 Pavlock DO [place]. [address] [place] [address], [id number] , [place]. tel: [phone] OFFICE/OUTPA TIENT VISIT, [facility], [address] [place], [place], [id number] , [place] tel: [phone] [facility] Vivitrol (chief complaint)U DS (chief complaint) Opioid dependence, uncomplicatedBody mass index [BMI] 19.9 or less, adult 1 Pavlock DO Max. [address] [place], [place], [id number] , [place]. tel: [phone] OFFICE/OUTPA TIENT VISIT, [facility], [address] [place] [address], [id number] , [place] tel: [phone] [facility] Vivitrol (chief complaint) Body mass index [BMI] 19.9 or less, adultOpioid dependence, uncomplicatedAlcoh ol abuse with intoxication with complication 1 [facility] Max. [address] [place], [place], [id number] , [place]. tel: [phone] [facility], [address] [place], [place], [id number] , [place] tel: [phone] [facility] No Information 1 [facility] Colby. [address] [place], [place], [id number] , [place]. tel: [phone] [facility], [address] [place], [place], 890098826 , [place] tel: [phone] [facility] No Information 0 [facility] [place]. [address] [place], [place], [id number] , [place]. tel: [phone] OFFICE/OUTPA TIENT VISIT, [facility], [address] [place], [place], [id number] , [place] tel: [phone] [facility] depression (chief complaint) Post-traumatic stress disorder, chronic 0 [facility] [place]. [address] [place], [place], [id number] , [place]. tel: [phone] [facility], [address] [place], [place], [id number] , [place] tel: [phone] [facility] Encounter for screening for other viral diseases 0 [facility] Col[place]. [address] [place], [place], [id number] , [place]. tel: [phone] OFFICE/OUTPA TIENT VISIT, [facility], [address] [place], [place], [id number] , [place] tel: [phone] [facility] Med Refills (chief complaint)d epression (chief complaint) Depression, unspecified depression typeBody mass index (BMI) 20.0-20.9, adult 0 Pavlock DO Max. [address] [place], [place], [id number] , [place]. tel: [phone] [facility], [address] [place], [place], 426636630 , [place] tel: [phone] [facility] No Information 0 Pavlock DO Max. [address] [place], [place], [id number] , [place]. tel: [phone] [facility], [address] [place] [address], [id number] , [place] tel: [phone] [facility] Post-traumatic stress disorder, chronicPersistent Depressive Disorder (Dysthymia) 0 Pavlock DO Max. [address] [place] [address], [id number] , [place]. tel: [phone] OFFICE/OUTPA TIENT VISIT, [facility], [address] [place] [address], [id number] , [place] tel: [phone] [facility] f/u meds (chief complaint)A nxiety (chief complaint) Body mass index (BMI) 19.9 or less, adultPost-traumati c stress disorder, chronic 0 Pavlock DO Max. [address] [place] [address], [id number] , [place]. tel: [phone] PSYCH DIAGNOSTIC EVALUATION [facility], [address] [place] [address], [id number] , [place] tel: [phone] [facility] Post-traumatic stress disorder, chronicPersistent Depressive Disorder (Dysthymia) 0 Araceli Juárez. [address] [place] [address], [id number] , [place]. tel: [phone] OFFICE/OUTPA TIENT VISIT, [facility], [address] [place] [address], [id number] , [place] tel: [phone] [facility] Follow up (chief complaint)d epression (chief complaint) Body mass index (BMI) 19.9 or less, adultDepression, unspecified depression type 0 Hemanth Giorgio. [address] [place] [address], [id number] , . tel: [phone] [facility], [address] [place] [address], [id number] , tel: [phone] [facility] lumbar spine (chief complaint)l umbar spine (chief complaint) Segmental and somatic dysfunction of lumbar regionRadiculopath y, lumbar regionSegmental and somatic dysfunction of cervical regionRadiculopath y, cervical region 0 Olayinka Ji. [address] [place] [address], [id number] , . tel: [phone] [facility], [address] [place] [address], [id number] , tel: [phone] [facility] lumbar spine (chief complaint)l umbar spine (chief complaint) Segmental and somatic dysfunction of lumbar regionRadiculopath y, lumbar regionSegmental and somatic dysfunction of cervical regionRadiculopath y, cervical region 0 Olayinka Ji. [address] [place] [address], [id number] , . tel: [phone] [facility], [address] [place] [address], [id number] , tel: [phone] [facility] lumbar spine (chief complaint)l umbar spine (chief complaint) Segmental and somatic dysfunction of lumbar regionRadiculopath y, lumbar regionSegmental and somatic dysfunction of cervical regionRadiculopath y, cervical region 0 0 Olayinka Ji. [address] [place] [address], [id number] , . tel: [phone] OFFICE/OUTPA TIENT VISIT, [facility], [address] [place] [address], [id number] , tel: [phone] [facility] EST CARE (chief complaint) Body mass index (BMI) 19.9 or less, adultAlcohol abuse with intoxication with complicationModera te protein-calorie malnutritionHead liceDepression, unspecified depression typeHistory of pancreatitisAlcoho lic polyneuropathy 0 Imani Haq. [address] [place] [address], [id number] , [place]. tel:[phone] Family History Family Member Type Diagnosis Age [...] ID Authoriza tijerardo(s) BH Anthem Medicaid 0223 [id number] [place] [facility] [employer] 190 [id number] Medicaid Wrap - [facility] [id number] [place] [employer] 190 [id number] Medicaid Wrap - [facility] [id number] Social History Type Description Quantity Date Captured [...] nt Illness boil Patient is in of [facility] for a boil on her left labia. C/O increased discomfort over the last 3 days. Is having difficulty working due to the discomfort. Will schedule annual exam once boil has resolved. Dinah #3LG here for Vivbitr ol #3 to LG. Denies any problems with cravings. Goes to [facility] for therapy- states is going well. denies other problems. Denies any problems with previous injection site. !st needle clogged, 2nd needle used. Pt. tolerated well, to RUOG.Hannah Nicole RN. Pt states doing well not having any new problems ,above was reviewed and agreed with [facility] UDS results +TCA Neg HCGB. EKLECHI Nicole Vivitrol Pt here for Estrellita trol#2RG, labs due 01/19. Pt denies cravings or issues with last injection site. Pt attends counseling at [facility] in [place]. Pt denies any other issues or concerns. KELECHI HopperVivitrol#2 given in RUOQ with 2 needle, pt tolerated well. KELECHI Hopper Pt states doing well not having any new problems ,above was reviewed and agreed with [facility] UDS UDS-Negative. Michelle Robertson RN Vivitrol Pt here to start Vivitrol.Pt states she did have one dose on 07/06/21 at [facility]. DOC-Heroin(IV) last use 06/18/21, states she overdosed on this date. 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 Pt denies any cravings or issues with last injection site. Pt attends counseling at [facility] [place]. Pt denies any other issues or concerns. [...] severe depression. 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 Pt [...]
--- OUTSIDE RECORDS SUMMARY | 2024-08-23 05:30 | XMS_ITS ---
Author Organization [facility] Address [address] [place] [address] Care Team Providers Care Language Instructor Name Role Phone Landon Carmen Primary Care Provider Hollis Aceves Unavailable [phone] REASON FOR VISIT RIGHT HALLUX INTERPHALANGEAL JOINT FUSION, BARAJAS EXTENSOR TENDON TRANSPOSITION, SHORT BUNIONECTOMY, PROXIMAL INTERPHALANGEAL JOINT FUSION HAMMERTOE CORRECTION DIGITS TWO THROUGH FOUR Encounters Encounter Location Date Provider Diagnosis [facility] [facility] [address] [place] [address] 08/23/2024 Hollis Maldonado Plan Of Treatment No Information Progress Notes * FUNMI ESTESDOB: [birth year] (35 yo F)Acc No.[id number]:08/23/2024 Patient: Mary FUNMI SOOD Provider: Mark Maldonado DPM :1990 A ge:34 Y S ex:Female Date:08/23/2024 Address:[facility]/[address] [place], [place] [id number] Pcp:Landon Carmen * Images: * Electronic signature of Yvonne Maldonado DPM on 04/10/2025 at 07:33 AM EDT Sign off status: Pending * Provider: Mark Maldonado DPM Date: 1 Generated for Printi ng/Faxing/eTransmitting on: 0 04/10/2025 07:33 AM EDT
--- OUTSIDE RECORDS SUMMARY | 2025-03-01 09:30 | XMS_ITS ---
Author Organization The [facility] in [place] Address [address] [place] [address] Care Team Providers Care Inspector Crystal Name Role Phone Nilton Carmen Primary Care Provider [phone] Allergies Allergen (clinical drug ingredient) Drug/Non Drug Allergy documented on EMR Reaction Allergy Type Onset Date Status medroxyprogesterone Provera itching all over Drug Allergy Active REASON FOR VISIT lack of energy, fatigue, loss of appitite, scartted brained, brusing, memory loss Medications Medication SIG (Take, Route, Frequency, Duration) Notes Start Date End Date Status Depakote 500 MG 1 tablet Orally Twic e a day for 30 day(s) 01/25/2025 Not-Taking Ondansetron 4 MG 1 tablet on the tong ue and allow to dissolve Orally qid 02/28/2025 Active lamoTRIgine 100 MG 1 tablet Orally TID for 30 days Active Keppra 500 MG 1 tablet Orally ever y 12 hrs for 30 day(s) 01/10/2025 Not-Taking CeleXA 10 MG 1 tablet Orally Once a day for 30 days 03/01/2025 Active Cyproheptadine HCl 4 MG 1 tablet Orally Twice a day for 30 day(s) 03/01/2025 Active Social History Tobacco Use: Social History Observation Description Date Details (start date - stop date) Current Smoker 12/29/2005 - NA Tobacco Control (Standard) Question Answer Notes Tobacco use: Current smoker When did you start smoking? 12/29/2005 How many cigarettes a day do you smoke? 11-20 How soon after you wake up do you smoke your fir st cigarette? Within 5 minutes AUDIT-C (Standard) Question Answer Notes Did you have a drink contain ing alcohol in the past year? Yes How often did you have six o r more drinks on one occasion in the past year? 2 to 3 times per week (3 points) How many drinks did you have on a typical day when you were drinking in the past year? 5 or 6 drinks (2 points) How often did you have a dri nk containing alcohol in the past year? Daily or almost daily (4 points) Points 9 Interpretation Positive Vital Signs Weight 126.6 lbs 03/01/2025 Height 67 in 03/01/2025 Blood pressure systolic 118 mm Hg 03/01/20 25 Blood pressure diastolic 68 mm Hg 025 BMI 19.83 kg/m2 03/01/2025 Encounters Encounter Location Date Provider Diagnosis [facility] [address] [place] [address] 03/01/2025 Nilton Carmen Unspecified convulsi ons R56.9 ; Alcohol dependence, uncomplicated F10.20 ; Palpitation R00.2 ; Depression F32.9 and Depression, unspecified F32.A Assessments Encounter Date Diagnosis (ICD Code) Assessment Notes Treatment Notes Treatment Clinical Notes Section Notes 03/01/2025 Unspecified convulsions (ICD-10 - R56.9) 03/01/2025 Alcohol dependence, uncomplicated (ICD-10 - F10.20) 03/01/2025 Palpitation (ICD-10 - R00.2) 03/01/2025 Depression (ICD-10 - F32.9) 03/01/2025 Depression, unspecified (ICD-10 - F32.A) Plan Of Treatment Medication Medication Name Sig Start Date Stop Date Notes CeleXA 10 MG 1 tablet Orally Once a day for 30 days 03/01/2025 Cyproheptadine HCl 4 MG 1 tablet Orally Twice a day for 30 day(s) 03/01/2025 Pending Test Test Name Order Date HEMOGLOBIN A1C (GLYCO) 03/01/2025 IRON, TOTAL 03/01/2025 LIPID PANEL (CHOL/TRIG/HDL/LDL) 03/01/20 25 VITAMIN D, 25 LEVEL (TOTAL) 03/01/2025 Insulin Level 03/01/2025 AMMONIA 03/01/2025 AMYLASE 03/01/2025 LIPASE 03/01/2025 PROTIME 03/01/2025 PTT 03/01/2025 VIT B12 AND FOLATE 03/01/2025 THYROID PANEL (T4/TSH/FREE T3) CMP (COMP MET CASAS) w/eGFR CKD-EPI 2024 CBC WITH DIFF 03/01/2025 Progress Notes * Karyn PARKERDOB: [birth year] (35 yo F)Acc No.[id number]:03/01/2025 Progress Note Patient: Karyn CHERY Provider: Shaylee Carmen ([facility])MD :1990 A ge:35 Y S ex:Female Date:03/01/2025 Address:[facility] [address] [id number] Check In:01:23 PM ESTCheck O ut:01:49 PM EST Subjective: * Chief Complaints: * L ack of energyFatigueLoss of appititeScartted brainedBrusingMemory loss * HPI: G eneral: Lck of energy - not SCHULER but some short term memory loss brain scan pending. * ROS: E ENT: hearing changes d enies. v isual changes d enies.?non-healing mouth sores d enies. s wollen glands or neck lumps d enies. h oarseness d enies. s ore throat d enies. d ifficulty swallowing d enies. n ose bleeds d enies. n modesto congestion d enies. e ar ache d enies. e ar discharge?denies. r inging in ears d enies. l ight sensitivity d enies. e ye pain d enies. b lurring d enies. e ye irritation d enies. d ouble vision d enies.?vision loss d enies. G eneral/Constitutional: Sweats: D enies. F atigue d enies. S leep problems d enies. A norexia d enies. M alaise d enies. W eight loss d enies.?Fatigue or Weakness d enies. F ever or Chills d enies. C ardiovascular: Shortness of Breath w/lying flat d enies. L ightheadedness/dizziness d enies. C hest tightness/ heavy pressure d enies. S welling of legs, ankles, or feet d enies. W aking up with shortness of breath d enies. C hest pain denies. P alpitations d enies. W eight gain d enies. R espiratory: Chronic or frequent cough d enies. C oughing up blood?denies. D ifficulty breathing d enies. P roductive cough d enies. S noring?denies. S hortness of breath that awakens from sleep (PND) d enies. C hest pain d enies. S putum production d enies. W heezing d enies. M usculoskeletal: Joint pain d enies. J oint Fluid d enies. B ack pain d enies. K nee pain d enies. N ashlie pain d enies. J oint Stiffness d enies. M uscle cramps d enies. W eakness of muscles d enies. A rthritis d enies. M uscle aches d enies. P ain in shoulder(s) d enies. S wollen joints d enies. * Active Problem List F41.9 Anxiety disorder, un specified Modified On:01/11/2024U Status:confirmed F10.20 Alcohol dependence, uncomplicated Modified On:12/15/2023U Status:confirmed R56.9 Unspecified convulsi ons Modified On:09/12/2023U Status:confirmed F10.939 Alcohol use, unspeci fied with withdrawal, unspecified Modified On:09/12/2023U Status:confirmed R00.2 Palpitation Modified On:01/11/2024U Status:confirmed F32.A Depression, unspecif ied Modified On:09/20/2023U Status:confirmed M25.531 Wrist pain, acute, r ight Modified On:03/02/2024U Status:confirmed R93.89 Abnormal findings on diagnostic imaging of other specified body structures Modified On:05/15/2024W/U Status:confirmed M20.10 Bunion Modified On:04/18/2024U Status:confirmed N92.6 Missed menses Modified On:05/09/2024 Status:confirmed F31.9 Bipolar 1 disorder Modified On:05/09/2024 Status:confirmed M79.671 Foot pain, right Modified On:05/11/2024 Status:confirmed R56.9 Seizure Modified On:09/10/2024 Status:confirmed N93.8 Dysfunctional uterin e bleeding Modified On:10/15/2024U Status:confirmed F32.9 Depression Modified On:11/29/2024U Status:confirmed G40.909 Recurrent seizures Modified On:01/10/2025 Status:confirmed * Medical History: * Surgical History: T onsillectomy * Hospitalization/Major Diagno stic Procedure: S eizure rug and alcohol rehab * Family History: F ather: , lung cancer, diagnosed with Other malignant neoplasm of unspecified site.?Mother: , suicide. S ister(s): alive, depression, anxiety. D darren(s): alive.?1 sister(s) . 2 daughter(s) - healthy. . * Social History: T obacco Use: T obacco Control (Standard) T obacco use: C urrent smoker W hen did you start smoking? 0 12/29/2005 H ow many cigarettes a day do you smoke? 1 1-20 H ow soon after you wake up do you smoke your first cigarette? W ithin 5 minutes D rug/Alcohol: A TAMIKO-C (Standard) D id you have a drink containing alcohol in the past year? Y es H ow often did you have six or more drinks on one occasion in the past year? 2 to 3 times per week (3 points) H ow many drinks did you have on a typical day when you were drinking in the past year? 5 or 6 drinks (2 points) H ow often did you have a drink containing alcohol in the past year? D aily or almost daily (4 points) P oints 9 I nterpretation P ositive * Medications: T akinglamoTRIgine 100 MG Tablet 1 tablet Orally TID Ondansetron 4 MG Tablet Disintegrating 1 tablet on the tongue and allow to dissolve Orally qid Taking lamoTRIgine 100 MG Tablet 1 tablet Orally TID Taking Ondansetron 4 MG Tablet Disintegrating 1 tablet on the tongue and allow to dissolve Orally qid Not-Taking/PRNDepakote(Divalproex Sodium) 500 MG Tablet Delayed Release 1 tablet Orally Twice a day Keppra(levETIRAcetam) 500 MG Tablet 1 tablet Orally every 12 hrs Not-Taking/PRN Depakote(Divalproex Sodium) 500 MG Tablet Delayed Release 1 tablet Orally Twice a day Not-Taking/PRN Keppra(levETIRAcetam) 500 MG Tablet 1 tablet Orally every 12 hrs DiscontinuedpredniSONE 20 MG Tablet 3 tablets Orally Once a day Medication List reviewed and reconciled with the patientDiscontinued predniSONE 20 MG Tablet 3 tablets Orally Once a day Medication List reviewed and reconciled with the patient * Allergies: P rovera: itching all over - Allergyno[Allergies Verified] Objective: * Vitals: W t:126.6lbs, Ht: 67 in, BP:118/68mm Hg, BMI:19.83Index, Ht-cm: 170.18 cm, Wt-k.43 kg. * Examination: P hysical Exam: GENERAL: w ell developed, well nourished, in no acute distress. HEAD: n ormocephalic/atraumatic. EYES: p upils equal, round and reactive to light, conjunctivae and sclerae normal. EARS: n o deformity or lesion of external ear, canals and TM appear normal bilaterally, TM's intact, not inflamed with normal light reflex, hearing grossly normal to conversational speech. NOSE: n o deformity, discharge, inflammation, or lesions.? MOUTH: m ucous membranes moist, normal oropharynx and posterior pharynx without lesions or exudates, tongue normal, dentition normal. NECK: n ashlie supple, no masses or palpable cervical nodes, trachea midline, thyroid without nodules, masses, tenderness, or enlargement. CHEST: n o chest wall deformity, no chest wall tenderness.? LUNGS: n ormal respiratory effort and clear to auscultation, no wheezes, rales, or rhonchi, good air exchange. CARDIO: r egular rate and rhythm, normal S1 and S2, nor murmur, rub, or gallop. PULSES: n ormal capillary refill. ABDOMEN: s oft, non-distended, non-tender, no masses. MUSCULOSKELETAL: n o deformity or scoliosis noted, normal range of motion, joints normal, no erythema, edema, effusion, or ecchymosis. EXTREMITY: n o clubbing, cyanosis, edema, or deformity with normal ROM in both upper and lower bilateral extremities. NEUROLOGIC: g rossly normal. SKIN: n o rashes, ulcerations, or suspicious lesions. LYMPH NODES: n o cervical adenopathy, nodes normal. MENTAL STATUS: a lert and oriented x3, normal mood and affect. Assessment: * Assessment: 1. A lcohol dependence, uncomplicated - F10.20 (Primary) 2 . U nspecified convulsions - R56.9 3 . P alpitation - R00.2 4 . D epression - F32.9 5 . D epression, unspecified - F32.A Plan: * Treatment: 2. U nspecified convulsions Start CeleXA Tablet, 10 MG, 1 tablet, Orally, Once a day, 30 days, 30, Refills 11; S tart Cyproheptadine HCl Tablet, 4 MG, 1 tablet, Orally, Twice a day, 30 day(s), 60. L AB: HEMOGLOBIN A1C (GLYCO) L AB: IRON, TOTAL L AB: LIPID PANEL (CHOL/TRIG/HDL/LDL) L AB: VITAMIN D, 25 LEVEL (TOTAL) L AB: Insulin Level L AB: AMMONIA L AB: AMYLASE L AB: LIPASE L AB: PROTIME L AB: PTT L AB: VIT B12 AND FOLATE L AB: THYROID PANEL (T4/TSH/FREE T3) L AB: CMP (COMP MET CASAS) w/eGFR CKD-EPI L AB: CBC WITH DIFF 3. P alpitation L AB: HEMOGLOBIN A1C (GLYCO) L AB: IRON, TOTAL L AB: LIPID PANEL (CHOL/TRIG/HDL/LDL) L AB: VITAMIN D, 25 LEVEL (TOTAL) L AB: Insulin Level L AB: THYROID PANEL (T4/TSH/FREE T3) L AB: CMP (COMP MET CASAS) w/eGFR CKD-EPI L AB: CBC WITH DIFF 4. D epression L AB: HEMOGLOBIN A1C (GLYCO) L AB: IRON, TOTAL L AB: LIPID PANEL (CHOL/TRIG/HDL/LDL) L AB: VITAMIN D, 25 LEVEL (TOTAL) L AB: Insulin Level L AB: THYROID PANEL (T4/TSH/FREE T3) L AB: CMP (COMP MET CASAS) w/eGFR CKD-EPI L AB: CBC WITH DIFF 5. D epression, unspecified L AB: HEMOGLOBIN A1C (GLYCO) L AB: IRON, TOTAL L AB: LIPID PANEL (CHOL/TRIG/HDL/LDL) L AB: VITAMIN D, 25 LEVEL (TOTAL) L AB: Insulin Level L AB: THYROID PANEL (T4/TSH/FREE T3) L AB: CMP (COMP MET CASAS) w/eGFR CKD-EPI L AB: CBC WITH DIFF * Procedure Codes: * Preventive Medicine: Screenings/Counseling: B [place] ACTION PLAN Above Normal BMI Follow-up D ietary management education, guidance, and counseling T OBACCO ACTION PLAN Patient counselled on the dangers of tobacco use and urged to quit. 0 03/01/2025 . * * Sign off status: Completed Visit Status: C HK (Check Out) true * Provider: Shaylee Carmen ([facility])MD Date: 0 03/01/2025 Generated for Katyai sergey/Oumar/eTransmitting on: 0 04/10/2025 07:32 AM EDT History and Physical Notes * HPI (History of Present Illness) Category Sub-Category Detail Notes Category Not es General Lck of energy - not SCHULER but some short term memory loss brain scan pending Examination Category Sub-Category Detail Notes Category Not es Physical Exam GENERAL: well developed, well nourished, in no acute distress HEAD: normocephalic/atraum atic EYES: pupils equal, round and reactive to light, conjunctivae and sclerae normal EARS: no deformity or lesi on of external ear, canals and TM appear normal bilaterally, TM's intact, not inflamed with normal light reflex, hearing grossly normal to conversational speech NOSE: no deformity, discha rge, inflammation, or lesions MOUTH: mucous membranes grant st, normal oropharynx and posterior pharynx without lesions or exudates, tongue normal, dentition normal NECK: neck supple, no mass es or palpable cervical nodes, trachea midline, thyroid without nodules, masses, tenderness, or enlargement CHEST: no chest wall deform ity, no chest wall tenderness LUNGS: normal respiratory e ffort and clear to auscultation, no wheezes, rales, or rhonchi, good air exchange CARDIO: regular rate and rhy thm, normal S1 and S2, nor murmur, rub, or gallop PULSES: normal capillary ref ill ABDOMEN: soft, non-distended, non-tender, no masses RECTAL: MUSCULOSKELETAL: no deformity or scol iosis noted, normal range of motion, joints normal, no erythema, edema, effusion, or ecchymosis EXTREMITY: no clubbing, cyanosi s, edema, or deformity with normal ROM in both upper and lower bilateral extremities NEUROLOGIC: grossly normal SKIN: no rashes, ulceratio ns, or suspicious lesions LYMPH NODES: no cervical adenopat hy, nodes normal MENTAL STATUS: alert and oriented x 3, normal mood and affect
--- OUTSIDE RECORDS SUMMARY | 2025-04-08 07:08 | XMS_ITS ---
Author Organization The [facility] in [place] Address [address] [place] [address] Care Team Providers Care Stain Sprayer Name Role Phone Nilton Carmen Primary Care Provider [phone] REASON FOR VISIT abscess Medications Medication SIG (Take, Route, Frequency, Duration) Notes Start Date End Date Status Doxycycline Monohydrate 100 MG 1 capsule Orally bid for 10 days 04/08/2025 Active Cefdinir 300 MG 2 capsule Orally onc e a day for 10 days 04/08/2025 Active Encounters Encounter Location Date Provider Diagnosis [address] [address] 04/08/2025 Nilton Carmen Plan Of Treatment Medication Medication Name Sig Start Date Stop Date Notes Doxycycline Monohydrate 100 MG 1 capsule Orally bid for 10 days 04/08/2025 Cefdinir 300 MG 2 capsule Orally onc e a day for 10 days 04/08/2025 Progress Notes * Karyn PARKERDOB: [birth year] (35 yo F)Acc No.[id number]:04/08/2025 Patient: Mary Karyn SOOD :1990 A ge:35 Y S ex:Female Address:[facility] [place] [place], [address] * Refills Start Doxycycline Monohydrate Capsule, 100 MG, Orally, 20 Capsule, 1 capsule, bid, 10 days, Refills=0 Start Cefdinir Capsule, 300 MG, Orally, 20 Capsule, 2 capsule, once a day, 10 days, Refills=0 * true * Date: Generated for Ebenezer rincon/Oumar/Troyitting on: 0 04/10/2025 07:33 AM EDT
--- OUTSIDE RECORDS SUMMARY | 2025-04-09 04:15 | XMS_ITS ---
Author Organization The [facility] in [place] Address [address] [place] [address] Care Team Providers Care Multicut Line Operator Name Role Phone Nilton Carmen Primary Care Provider REASON FOR VISIT refill Medications Medication SIG (Take, Route, Fr equency, Duration) Notes Start Date End Date Status Ondansetron 4 MG 1 tablet on the tong ue and allow to dissolve Orally qid 02/28/2025 Active Encounters Encounter Location Date Provider Diagnosis [facility] [address] [place] [address] 04/09/2025 Nilton Nella Plan Of Treatment Medication Medication Name Sig Start Date Stop Date Notes Ondansetron 4 MG 1 tablet on the tong ue and allow to dissolve Orally qid 02/28/2025 Progress Notes * Karyn PARKERDOB: [birth year] (35 yo F)Acc No.[id number]:04/09/2025 Patient: Mary Karyn SOOD :1990 A ge:35 Y S ex:Female Address:[facility] [place], [address] * Refills Refill Ondansetron Tablet Disintegrating, 4 MG, Orally, 20, 1 tablet on the tongue and allow to dissolve, qid, Refills=1 * true * Date: Generated for Printi ng/Faxing/eTransmitting on: 0 04/10/2025 07:33 AM EDT
--- OUTSIDE RECORDS SUMMARY | 2025-04-10 07:33 | XMS_ITS | Clinical Summary ---
Author Organization [facility] Address [address] [place] [address] Care Team Providers Care Stock Blender Name Role Phone Landon Carmen MD Primary Care Provider [phone] Allergies No known active allergies Medications propranolol (INDERAL LA) 120 MG extended release capsule Take 1 capsule by mouth daily Active lamoTRIgine (LAMICTAL) 100 MG tablet Take 1 tablet by mouth daily Active brexpiprazole (REXULTI) 0.5 MG TABS tablet Take 1 tablet by mouth daily Active ibuprofen (ADVIL;MOTRIN) 800 MG tablet Take 1 tablet by mouth every 8 hours as needed for Pain Active Social History Tobacco Use Types Packs/Day Years Used Date Smoking Tobacco: Former Cigarettes Smokeless Tobacco: Never Tobacco Cessation:Counseling Given: Not Answered Alcohol Use Standard Drinks/Week Comments Yes 0 (1 standard drink = 0.6 oz pur e alcohol) socially Interpersonal Safety Domain Source: IP Abuse Scr eening Answer Date Recorded Physical abuse Denies 08/23/2024 Verbal abuse Denies 08/23/2024 Emotional abuse Denies 08/23/2024 Financial abuse Denies 08/23/2024 Sexual abuse Not on file 08/23/2024 Comments Unknown Sex and Gender Information Value Date Recorded Sex Assigned at Not on file Legal Sex Female 1:17 PM EST Gender Identity Not on file Sexual Orientation Not on file Last Filed Vital Signs Vital Sign Reading Time Taken Comments Blood Pressure 105/72 08/23/2024 8:14 AM EDT Pulse 87 08/23/2024 8:14 AM EDT Temperature 36.9 C (98.5 F) 08/23/2024 8:14 AM EDT Respiratory Rate 14 08/23/2024 8:14 AM EDT Oxygen Saturation 96% 08/23/2024 8:14 AM EDT Inhaled Oxygen Concentration - - Weight 64.9 kg (143 lb) 08/23/2024 8:07 AM EDT Height 167.6 cm (5' 6 ) 08/23/2024 8:14 AM EDT Body Mass Index 23.08 08/23/2024 8:07 AM EDT Plan of Treatment Health Maintenance Due Date Last Done Comments Depression Screen 2000 Varicella vaccine (1 of 2 - 13+ 2-dose series) 02/07/2001 DTaP/Tdap/Td vaccine (1 - Tdap) 02/07/2007 Hepatitis B vaccine (1 of 3 - 19+ 3-dose series) 02/07/2007 Pap smear 02/07/2009 Cervical cancer screen 02/07/2018 HPV (without or with Pap) 02/07/2018 COVID-19 Vaccine (2023-2 5 season) 2024 Flu vaccine (Season Ended) 2025 HIV screen Completed 11/22/2014 Hepatitis C screen Completed 11/22/2014 HPV vaccine Aged Out No longer eligi ble based on patient's age to complete this topic Hepatitis A vaccine Aged Out No longe r eligible based on patient's age to complete this topic Hib vaccine Aged Out No longer eligi ble based on patient's age to complete this topic Meningococcal (ACWY) vaccine Aged Out No longer eligible based on patient's age to complete this topic Meningococcal B vaccine Aged Out No l onger eligible based on patient's age to complete this topic Pneumococcal 0-49 years Vaccine Aged Out No longer eligible based on patient's age to complete this topic Polio vaccine Aged Out No longer elig ible based on patient's age to complete this topic Procedures Procedure Name Priority Date/Time Associated Diagnosis Comments HIV-1,-2 W/REFLEX TO HIV-1 WESTERN BLOT Routine 11/22/2014 8:48 AM EST HEPATITIS ACUTE /W REFLEX CONF Routine 11/22/2014 8:48 AM EST from Last 3 Months or Most Recently Relevant to Health Maintenance Results * HIV-1,-2 w/Reflex to HIV-1 Western Blot (11/22/2014 8:48 AM EST) HIV-1/HIV-2 Ab Negative Negative 11/24/2014 12:56 AM EST [facility] Comment: Based on the non-reactive anti-HIV (ZEE) screen, the HIV Western blot is not indicated and therefore not performed. INTERPRETIVE INFORMATION: HIV-1,-2 w/Reflex to HIV-1 Western Blot This assay should not be used for blood donor screening, associated re-entry protocols, or for screening Human Cells, Tissues and Cellular and Tissue-Based Products (HCT/P). Performed by [employer], [address] [place] [id number] [email or web address], Adriano Amin MD - Lab. Director 11/22/2014 8:48 AM EST 11/22/2014 9:56 AM EST us Unknown Provider Result HEMATOLOGY ORDERABLES Fi nal Result Performing Organization Address [facility] Co de Phone Number [facility] * HEPATITIS ACUTE /W REFLEX CONF (11/22/2014 8:48 AM EST) Hep A IgM Non-reacti ve 11/22/2014 11:44 AM EST [facility] Hep B Core Ab, IgM Non-reacti ve 11/22/2014 11:44 AM EST [facility] Hep B S Ag Interp Non-reacti ve 11/22/2014 11:44 AM EST [facility] Hep C Ab Interp Non-reacti ve 11/22/2014 6:40 PM EST [facility] Hepatitis Interpretation : see below 11/22/2014 7:02 PM EST [facility] Comment: The Acute hepatitis panel is negative. there is no evidence of acute hepatitis A, B, C. 11/22/2014 8:48 AM EST 11/22/2014 9:55 AM EST us Unknown Provider Result CHEMISTRY ORDERABLES Fin al Result Performing Organization Address City/[facility]/ZIP Co de Phone Number [facility] from Last 3 Months or Most Recently Relevant to Health Maintenance Insurance [employer] Member Subscriber Plan / Payer (Ef fective 2014-Present) Name:Karyn Parker Relation to Subscriber:Self Name:Karyn Parker Payer ID:Not on file Group ID:Not on file Type:Not on file Address: [address] [address] [facility] [employer] Care Teams Stock Blender Relationship Specialty Start Date End Date Landon Carmen MD [address] [phone] PCP - General 07/19/15
--- OUTSIDE RECORDS SUMMARY | 2025-04-10 07:33 | XMS_ITS | Patient Health Record ---
Author Organization [facility] in [place] Address [address] [place] [address] Care Team Providers Care Heavy Equipment Sales Manager Name Role Phone Nilton Carmen Primary Care Provider CARL CARMEN Unavailable [phone] Allergies Allergen (clinical drug ingredient) Drug/Non Drug Allergy documented on EMR Reaction Allergy Type Onset Date Status medroxyprogesterone Provera itching all over Drug Allergy Active Results Component Value Reference Range Notes CBC AUTO DIFF Reviewed date:08/21/2024 08:58:22 AM Interpretation: Performing Lab: Notes/Report: [facility] , White Blood Count 4.0 4.0-11.0 10 3/uL Red Blood Count 4.23 4.20-5.40 10 6/uL Hemoglobin 14.0 12.0-16.0 g/dL Hematocrit 40.6 36.0-48.0 % Mean Corpuscular Volume 96.0 81.0-99.0 fL Mean Corpuscular Hemoglobin 33.1 26.7-34.0 pg Mean Corpuscular HGB Conc 34.5 29.9-35.2 g/dL Red Cell Distribution Width 12.6 11.0-15.0 % Platelet Count 222 150-450 10 3/uL Mean Platelet Volume 9.4 9.5-13.5 fL Neutrophils Percent Auto 47.9 43.0-75.0 % Lymphocytes Percent Auto 35.4 20.5-60.0 % Monocytes Percent Auto 15.0 1.7-12.0 % Eosinophils Percent Auto 1.0 0.9-7.0 % Basophils Percent Auto 0.5 0.2-2.0 % Immature Granulocytes Pct Auto 0.2 0.0-0.5 % Neutrophils Absolute Auto 1.9 1.4-6.5 10 3/uL Lymphocytes Absolute Auto 1.4 1.2-3.8 10 3/uL Monocytes Absolute Auto 0.6 0.3-0.8 10 3/uL Eosinophils Absolute Auto 0.0 0.0-0.7 10 3/uL Basophils Absolute Auto 0.0 0.0-0.1 10 3/uL Immature Granulocytes Abs Auto 0.01 0.00-0.03 10 3/uL Performing Lab: see note ML - [facility] LB URINE Reviewed date:08/21/2024 08:58:22 AM Interpretation: Performing Lab: Notes/Report: URINE negative ECG 12 lead Reviewed date:08/22/2024 06:52:29 PM Interpretation: Performing Lab: Notes/Report: Source Facility: [place] [address] Electrocardiograph Report Signed Patient: FUNMI PARKER MR#: [id number] : 1990 Acct:[id number] Age/Sex: 34 / F ADM Date: 08/21/24 Loc: CARD Attending Dr: Andressa-Staff Physician Maurer Ordering Physician: Floyd Wyatt M.D. Date of Service: 08/21/24 Procedure(s): ECG 12 lead Accession Number(s): [id number] cc: [facility] Test Date: 2024-08-21 Pat Name: FUNMI PARKER Department: Room: - Gender: Female Bulk Clerk: : 1990 Requested By: Order Number: [id number] Reading MD: RAYMUNDO NAJERA Measurements Intervals Reading Rate: 61 P: 48 MI: 142 QRS: 68 QRSD: 82 T: 59 QT: 383 QTc: 388 Interpretive Statements SINUS RHYTHM Compared to ECG 06/11/2023 06:42:04 Sinus tachycardia no longer present Electronically Signed On 08-21-2024 22:21:22 EDT by RAYMUNDO NAJERA Dictated By: Raymundo Najera D.O. Signed By: 08/21/24222008/21/242220 DD/ 3 TD/TT: Home Therapy Teacher: [place] [address] Electrocardiograph Report Signed Patient: KD PARKER MR#: [id number] : 1990 Acct:[id number] Age/Sex: 34 / F ADM Date: 08/21/24 Loc: CARD Attending Dr: Roni Wyatt M.D. Ordering Physician: Timo WyattStaff Erasto Date of Service: 08/21/24 Procedure(s): ECG 12 lead Accession Number(s): [id number] cc: [facility] Test Date: 2024-08-21 Pat Name: FUNMI SOOD Department: 74 Room: - Gender: Female Bulk Clerk: : 1990 [address] By: Order Number: [id number] Reading MD: RAYMUNDO NAJERA Measurements Intervals Reading Rate: 61 P: 48 MI: 142 QRS: 68 QRSD: 82 T: 59 QT: 383 QTc: 388 Interpretive Statements SINUS RHYTHM Compared to ECG 05/31 06:42:04 Sinus tachycardia no longer present Electronically Opal d On 08-21-2024 22:21:22 EDT by RAYMUNDO NAJERA Dictated By: Teofilo Najera D.O. Signed By: 08/21/24222008/21/242220 DD/ 3 TD/TT: Home Therapy Teacher: PROF NOVOA 8 ([facility]) Reviewed date:08/21/2024 08:58:22 AM Interpretation: Performing Lab: Notes/Report: [facility] , Sodium 140 136-145 mmol/L Potassium 3.7 3.5-5.1 mmol/L Chloride 103 98-107 mmol/L Carbon Dioxide 22.4 21.0-32.0 mmol/L Anion Gap 18.3 Glucose 95 74-106 mg/dL Blood Urea Nitrogen 8.0 7.0-18.0 mg/dL Creatinine 0.93 0.55-1.02 mg/dL Estimated GFR ( Dianne >60 >=60 mL/min/1.73m 2 Estimated GFR (Non- Luz >60 >=60 mL/min/1.73m 2 BUN Creatinine Ratio 8.6 Calcium 9.6 8.5-10.1 mg/dL Performing Lab: see note ML - [facility] LB US PELVIS Reviewed date:12/23/2024 09:59:58 AM Interpretation: Performing Lab: Notes/Report: Source Facility: [facility]-[address] [place] [address] [address] Ultrasound Report Signed Patient: FUNMI PARKER MR#: [id number] : 1990 Acct:[id number] Age/Sex: 34 / F ADM Date: 10/18/24 Loc: US Attending Dr: Carl Carmen M.D. Ordering Physician: Carl Carmen M.D. Date of Service: 10/18/24 Procedure(s): US pelvis Accession Number(s): [id number] cc: Carl Carmen M.D. [place] [address] Patient Name: FUNMI PARKER MRN: [id number] date: 1990 Sex: F Assigned Patient Location: Current Patient Location: US Accession/Order Number: [id number] Exam Date: 10/18/2024 14:00 Report Date: 10/19/2024 11:44 At the request of: CARL CARMEN Procedure: US pelvis EXAMINATION: US pelvis HISTORY: Dysfuctional Uterine Bleeding COMPARISON: No relevant comparison available. FINDINGS: The uterus is normal in size measuring 6.6 x 3.9 x 5.2 cm. The uterus is heterogeneous in echotexture with no focal mass. The uterus is anteverted The endometrium measures 11 mm, heterogeneous The right ovary measures 1.8 x 1.3 x 1.8 cm. Normal color and Doppler flow The left ovary is normal measuring 2.7 x 2.0 x 2.9 cm. Normal color and Doppler flow. 2.2 cm simple cyst No free fluid US/US pelvis IMPRESSION: Heterogeneous endometrium measuring 11 mm, nonspecific Electronically authenticated by: NIESHA MORRIS Date: 10/19/2024 11:44 Dictated By: Niesha Morris M.D. Signed By: 12/20/24 1231 DD/ 1144 TD/TT: Home Therapy Teacher: [address] [address] Ultrasound Report Signed Patient: KD PARKER MR#: [id number] : 1990 Acct:[id number] Age/Sex: 34 / F ADM Date: 10/18/24 Loc: US Attending Dr: Demarcus Carmen M.D. Ordering Physician: Carl Carmen M.D. Date of Service: 10/18/24 Procedure(s): US pelvis Accession Number(s): [id number] cc: Carl Carmen M.D. [place] [id number] Patient Name: FUNMI PARKER MRN: [id number] date: 1990 Sex: F Assigned Patient Loc ation: US Current Patient Loca tion: US Accession/Order Numb er: [id number] Exam Date: 14:00 Report Date: 10/19/2024 11:44 At the request of: CARL CARMEN Procedure: US pelvis EXAMINATION: US pelvis HISTORY: Dysfuctiona l Uterine Bleeding COMPARISON: No relev ant comparison available. FINDINGS: The uterus is normal in size measuring 6.6 x 3.9 x 5.2 cm. The uterus is heterogeneous in echotexture with no focal mass. The uterus is anteverted The endometrium kesha ures 11 mm, heterogeneous The right ovary kesha ures 1.8 x 1.3 x 1.8 cm. Normal color and Doppler flow The left ovary is no rmal measuring 2.7 x 2.0 x 2.9 cm. Normal color and Doppler flow. 2.2 cm simple cyst No free fluid U S/US pelvis IMPRESSION: Heterogeneous endome trium measuring 11 mm, nonspecific Electronically authenticated by: NIESHA MORRIS Date: 10/19/2024 11:44 Dictated By: Mitchel Morris M.D. Signed By: 12/20/24 1231 DD/ 1144 TD/TT: Home Therapy Teacher: Reason For Referral Diagnosis 1 Bunion (M20.10) Referral Organization [facility] Referring Provider First Name CARL Referring Provider Last Name NELLA Referring Provider Speciality [facility] joann Referred Provider Garrison Vazquez Referred Provider Specialty Orthopedic S urgery Referral Priority Routine Diagnosis 1 Dysfunctional uterin e bleeding (N93.8) Referral Organization [facility] Medicine Referring Provider First Name Nilton Referring Provider Last Name Nella Referring Provider Speciality [facility] joann Referred Provider Jaylon Moscoso Referred Provider Specialty OB - Gynecol ogy Referral Priority Routine Medications Medication SIG (Take, Route, Frequency, Duration) Notes Start Date End Date Status Depakote 500 MG 1 tablet Orally Twic e a day for 30 day(s) 01/25/2025 Not-Taking Ondansetron 4 MG 1 tablet on the tong ue and allow to dissolve Orally qid 02/28/2025 Active CeleXA 10 MG 1 tablet Orally Once a day for 30 days 03/01/2025 Active Cyproheptadine HCl 4 MG 1 tablet Orally Twice a day for 30 day(s) 03/01/2025 Active lamoTRIgine 100 MG 1 tablet Orally TID for 30 days Active Doxycycline Monohydrate 100 MG 1 capsule Orally bid for 10 days 04/08/2025 Active Keppra 500 MG 1 tablet Orally ever y 12 hrs for 30 day(s) 01/10/2025 Not-Taking Cefdinir 300 MG 2 capsule Orally onc e a day for 10 days 04/08/2025 Active Social History Tobacco Use: Social History Observation Description Date Details (start date - stop date) Current Smoker 12/29/2005 - NA Alcohol Screen (Audit-C) Question Answer Notes Did you have a drink contain ing alcohol in the past year? Yes How often did you have 6 or more drinks on one occasion in the past year? Four or more times a week (4 points) How many drinks did you have on a typical day when you were drinking in the past year? 5 or 6 drinks (2 points) How often did you have a dri nk containing alcohol in the past year? Daily or almost daily (4 points) Points 10 Interpretation Positive Tobacco Control (Standard) Question Answer Notes Tobacco [...] daily (4 points) Points 9 Interpretation Positive Problems Problem Type SNOMED Code ICD Code Onset Dates Problem Status W/U Status Risk Notes Problem 62823856 Unspecified convulsions (R56.9) Active confirmed Problem Alcohol dependence (93175404) Alcohol dependence, uncomplicated (F10.20) Active confirmed Problem Anxiety disorder (992043763) Anxiety disorder, unspecified (F41.9) Active confirmed Problem Seizure (77092118) Seizure (R56.9) Active confirmed Problem Palpitations (94167551) Palpitation (R00.2) Active confirmed Problem Depression (327955845) Depression (F32.9) Active confirmed Problem Bipolar 1 disorder (338040193) Bipolar 1 disorder (F31.9) Active confirmed Problem Pain in limb (56265946) Foot pain, right (M79.671) Active confirmed Problem Bunion (738036786) Bunion (M20.10) Active confirmed Problem Epilepsy (74749797) Recurrent seizures (G40.909) Active confirmed Problem Dysfunctional uterine bleeding (04379735782586) Dysfunctional uterine bleeding (N93.8) Active confirmed Problem Missed period (11339921) Missed menses (N92.6) Active confirmed Problem Pain in wrist (08714181) Wrist pain, acute, right (M25.531) Active confirmed Problem 948047983 Abnormal finding s on diagnostic imaging of other specified body structures (R93.89) Active confirmed Problem 967114601 Alcohol use, unspecified with withdrawal, unspecified (F10.939) Active confirmed Problem 05855582 Depression, unspecified (F32.A) Active confirmed Vital Signs Blood pressure diastolic 68 mm Hg 03/01/2025 Height 67 in 03/01/2025 Blood pressure systolic 118 mm Hg 03/01/2025 Weight 126.6 lbs 03/01/2025 BMI 19.83 kg/m2 03/01/2025 Procedures Procedure Date Ordered Date Performed Result Body Sit e CARDIO Echocardiogram 01/10/2025 N/A EEG (Sleep Deprived) 09/10/2024 N/A Encounters Encounter Location Date Provider Diagnosis [place] [address] [place] [address] 01/10/2025 Nilton Hoy Alcohol dependence, uncomplicated F10.20 ; Palpitation R00.2 and Recurrent seizures G40.[address] [address] 01/25/2025 Nilton Hoy Alcohol dependence, uncomplicated F10.20 and Allergic reaction T78.40XA [address] [address] 03/01/2025 Nilton Hoy Unspecified convulsi ons R56.9 ; Alcohol dependence, uncomplicated F10.20 ; Palpitation R00.2 ; Depression F32.9 and Depression, unspecified F32.A [address] [address] 09/10/2024 Nilton Hoy Alcohol use, unspecified with withdrawal, unspecified F10.939 and Seizure R56.[address] [address] 10/03/2024 Nilton Hoy Anxiety disorder, unspecified F41.9 ; Alcohol dependence, uncomplicated F10.20 and Unspecified convulsions R56.[address] [address] 10/15/2024 Nilton Hoy Dysfunctional uterin e bleeding N93.[address] [address] 11/29/2024 Nilton Hoy Depression F32.[address] [address] 12/28/2024 Nilton Hoy Palpitation R00.2 ; Anxiety disorder, unspecified F41.9 and Alcohol dependence, uncomplicated F10.[address] [address] 04/18/2024 CARL HOY Bunion M20.10 [facility] [address] [place] [place] [address] 05/09/2024 Nilton Hoy Missed menses N92.6 and Bipolar 1 disorder F31.9 [facility] [address] [place] [place] [address] 05/11/2024 Nilton Hoy Foot pain, right M79.671 [facility] [address] [place] [address] 05/11/2024 Nilton Hoy Foot pain, right M79.671 [facility] [address] [place] [address] 06/05/2024 Nilton Hoy [facility] [address] [place] [place] [place] [address] 06/13/2024 Nilton Hoy Anxiety disorder, unspecified F41.9 [facility] [address] [place] [place] [address] 07/05/2024 Nilton Hoy Anxiety disorder, unspecified F41.9 and Missed menses N92.6 [facility] [address] [place] [address] 09/03/2024 Nilton Hoy Missed menses N92.6 ; Palpitation R00.2 and Anxiety disorder, unspecified F41.9 [facility] [address] [place] [address] 09/03/2024 Nilton Hoy Anxiety disorder, unspecified F41.9 [facility] [address] [place] [address] 09/17/2024 Nilton Hoy Alcohol use, unspecified with withdrawal, unspecified F10.939 [facility] [address] [place] [place] [address] 09/26/2024 Nilton Hoy Alcohol use, unspecified with withdrawal, unspecified F10.939 [facility] [address] [place] [place] [address] 10/19/2024 Nilton Hoy Dysfunctional uterin e bleeding N93.8 [facility] [address] [place] [place] [address] 12/23/2024 Nilton Carmen [facility] [address] [place] [address] 12/28/2024 Nilton Carmen [facility] [address] [place] [place] [address] 01/10/2025 Nilton Carmen [facility] [address] [facility] [place] [address] 01/16/2025 Nilton Carmen [facility] [address] [facility] [place] [address] 02/21/2025 Nilton Carmen Encounter for other preprocedural examination Z01.818 [facility] [address] [place] [place] [address] 02/28/2025 Nilton Carmen [facility] [address] [facility] [place] [address] 04/08/2025 Nilton Carmen [facility] [address] [place] [address] 04/09/2025 Nilton Carmen Assessments Encounter Date Diagnosis (ICD Code) Assessment Notes Treatment Notes Treatment Clinical Notes Section Notes 04/18/2024 Bunion (ICD-10 - M20.10) 05/09/2024 Missed menses (ICD-10 - N92.6) need labs and hcg 05/09/2024 Bipolar 1 disorder (ICD-10 - F31.9) 05/11/2024 Foot pain, right (ICD-10 - M79.671) 09/10/2024 Alcohol use, unspecified with withdrawal, unspecified (ICD-10 - F10.939) 09/10/2024 Seizure (ICD-10 - R56.9) 10/03/2024 Anxiety disorder, unspecified (ICD-10 - F41.9) Still neeeds eeg 10/03/2024 Alcohol dependence, uncomplicated (ICD-10 - F10.20) 10/15/2024 Dysfunctional uterine bleeding (ICD-10 - N93.8) Dr Moscoso 11/29/2024 Depression (ICD-10 - F32.9) 12/28/2024 Palpitation (ICD-10 - R00.2) 12/28/2024 Anxiety disorder, unspecified (ICD-10 - F41.9) 01/25/2025 Alcohol dependence, uncomplicated (ICD-10 - F10.20) 01/25/2025 Allergic reaction (ICD-10 - T78.40XA) 03/01/2025 Unspecified convulsions (ICD-10 - R56.9) 03/01/2025 Alcohol dependence, uncomplicated (ICD-10 - F10.20) 01/10/2025 Alcohol dependence, uncomplicated (ICD-10 - F10.20) 01/10/2025 Palpitation (ICD-10 - R00.2) 05/11/2024 Foot pain, right (ICD-10 - M79.671) 06/13/2024 Anxiety disorder, unspecified (ICD-10 - F41.9) 07/05/2024 Anxiety disorder, unspecified (ICD-10 - F41.9) 09/03/2024 Anxiety disorder, unspecified (ICD-10 - F41.9) 09/17/2024 Alcohol use, unspecified with withdrawal, unspecified (ICD-10 - F10.939) 09/26/2024 Alcohol use, unspecified with withdrawal, unspecified (ICD-10 - F10.939) 10/19/2024 Dysfunctional uterine bleeding (ICD-10 - N93.8) 02/21/2025 Encounter for other preprocedural examination (ICD-10 - Z01.818) 09/03/2024 Missed menses (ICD-10 - N92.6) 09/03/2024 Palpitation (ICD-10 - R00.2) 07/05/2024 Missed menses (ICD-10 - N92.6) 01/10/2025 Recurrent seizures (ICD-10 - G40.909) 03/01/2025 Palpitation (ICD-10 - R00.2) 12/28/2024 Alcohol dependence, uncomplicated (ICD-10 - F10.20) 10/03/2024 Unspecified convulsions (ICD-10 - R56.9) 03/01/2025 Depression (ICD-10 - F32.9) 09/03/2024 Anxiety disorder, unspecified (ICD-10 - F41.9) 03/01/2025 Depression, unspecified (ICD-10 - F32.A) Plan Of Treatment Pending Test Test Name Order Date Holter Test 09/19/2023 CMP (COMPLETE METABOLIC PANEL) HEMOGLOBIN A1C (GLYCO) 04/09/2024 HEMOGLOBIN A1C (GLYCO) 03/01/2025 IRON, TOTAL 03/01/2025 IRON, TOTAL 01/10/2025 IRON, TOTAL 04/09/2024 LIPID PANEL (CHOL/TRIG/HDL/LDL) 04/09/20 LIPID PANEL (CHOL/TRIG/HDL/LDL) 03/01/20 25 CBC WITH DIFF 04/09/2024 VITAMIN D, 25 LEVEL (TOTAL) 04/09/2024 VITAMIN D, 25 LEVEL (TOTAL) 03/01/2025 XR Orbits (4 views) 02/21/2025 CARDIO Echocardiogram 01/10/2025 EEG (Sleep Deprived) 09/10/2024 Insulin Level 03/01/2025 CT Wrist w/ Contrast Right 03/07/2024 AMMONIA 03/01/2025 AMYLASE 03/01/2025 CBC AUTO DIFF 05/09/2024 Covid-19 PCR (CVDTBH) 08/02/2023 DEPAKENE or VALPROIC ACID 01/25/2025 FSH 04/09/2024 GLYCOHEMOGLOBIN A1C 05/09/2024 INFLUENZA A AND B AG 08/02/2023 INSULIN 05/09/2024 LIPASE 03/01/2025 PREG QUANT HCG 05/09/2024 PREG QUANT HCG 04/09/2024 PROF 14(COMP METB) 05/09/2024 PROTIME 03/01/2025 PTT 03/01/2025 THYROID PROFILE WITH TSH 05/09/2024 VIT B12 AND FOLATE 03/01/2025 MRI BRAIN WO CON 01/10/2025 XR WRIST RT MIN 3 V 03/05/2024 THYROID PANEL (T4/TSH/FREE T3) 4 THYROID PANEL (T4/TSH/FREE T3) 5 THYROID PANEL (T4/TSH/FREE T3) 5 ECHOCARDIO M/2D COMPLETE 09/19/2023 CMP (COMP MET CASAS) w/eGFR CKD-EPI 2024 CMP (COMP MET CASAS) w/eGFR CKD-EPI 2024 CBC WITH DIFF 03/01/2025 CBC WITH DIFF 01/10/2025 Insurance Providers Payer Name Payer Address Payer Phone Subscriber Number Group Number Insured Name Patient Relationship to Insured Coverage Start Date Coverage End Date [employer] [place] [employer] [address] [address] [place] [phone] [id number] Funmi Parker Self - patient is the insured Medical (General) History Medical History History ICD Code Tobacco Abuse Insomnia Narcotic Abuse Palpitations Paresthesia Migraines Surgical History Surgery Date(Month/Year) Tonsillectomy Hospitalization History Reason Date(Month/Year) drug and alcohol rehab Seizure 05/2023
--- OUTSIDE RECORDS SUMMARY | 2025-04-10 07:34 | XMS_ITS | Encounter Summary ---
Author Organization [facility] Address [address] [place] [address] Care Team Providers Care Care Team Assistant Name Role Phone Landon Carmen MD Primary Care Provider [phone] Encounter Details Date Type Department Care Team (Late st Contact Info) Description 07/05/2023 Abstract [facility] [address] [place] [address] Ayn Murguia [place] [address] [place], [facility] Social History Tobacco Use Types Packs/Day Years Used Date Smoking Tobacco: Never Assessed Tobacco Cessation:Counseling Given: Not Answered Comments:Positive tobacco use Alcohol Use Standard Drinks/Week Comments Not Asked 0 (1 standard drink = 0.6 oz pur e alcohol) recovering alcoholic Comments Unknown Sex and Gender Information Value Date Recorded Sex Assigned at Not on file Legal Sex Female 11:34 PM EDT Gender Identity Not on file Sexual Orientation Not on file documented as of this encounter Plan of Treatment Not on file documented as of this encounter Visit Diagnoses Not on filedocumented in this encounter Care Teams Care Team Assistant Relationship Specialty Start Date End Date Landon Carmen MD PCP - General Family Medicine 06/15/23 documented as of this encounter
--- OUTSIDE RECORDS SUMMARY | 2025-04-10 07:34 | XMS_ITS | Clinical Summary ---
Author Organization [facility] Address [address] [place] [address] Care Team Providers Care T[employer] Supervisor Name Role Phone Landon Carmen MD Primary Care Provider [phone] Family History Medical History Relation Name Comments Cancer Father Hyperlipidemia Father Mental illness Father Breast cancer Maternal Grandmother COPD Mother Mental illness Mother Breast cancer Sister Relation Name Status Comments Brother 1 Father Maternal Grandmother Mother Sister 1 Social History Tobacco Use Types Packs/Day Years [...] on file Sexual Orientation Not on file Plan of Treatment Not on file Insurance [employer] [place] Care Teams Tire Center Supervisor Relationship Specialty Start Date End Date Landon Carmen MD PCP - General Family Medicine 06/15/23
--- OUTSIDE RECORDS SUMMARY | 2025-04-10 07:34 | XMS_ITS | CCD ---
Author Organization [facility] Care Team Providers Care Animal Tech Name Role Phone ONI CARMICHAEL Admitting Unavailable [...] Unavailable MD Carl Child Primary Care Provider [phone] Ruthann [facility] Xochilt Awan Emergency Provider PROVIDER, UNKNOWN Attending Unavailable PROVIDER, UNKNOWN Admitting Unavailable MD Carl Child Primary Care Provider [phone] DO Roby Thakkar Emergency Provider [phone] MD Gem Velasco Admit Provider MD Gem Velasco Attending Provider MD Tyrone Barron Attending Provider [phone] MD Gregory Raya Other Provider Gem Velasco Admitting Unavailable Tyrone Barron Attending Unavailable Carl Child Primary Care Unavailable Gregory Raya Consulting Unavailable Carl Child MD Primary Care Provider [phone] ERICA MALDONADO Admitting Unavailable ERICA MALDONADO Attending Unavailable ERICA MALDONADO Admitting Unavailable ERICA MALDONADO Attending Unavailable CARL CHILD Primary Care Unavailable Allergies Allergy Classification Reported Allergen(s) Allergy Type Date of Onset Reaction(s) Facility (1 source) Penicillin Drug Allergy [facility] Repository Medications Current Medications Medication Drug [...] IntraVENous, at 100 mL/hr, CONTINUOUS, Starting on [facility] 08/23/24 at 0800, Pre-op (day of [...] 650 mg, Oral, ONCE, 1 dose, On [facility] 08/23/24 at 0800, Maximum dose of [...] 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 Comment on above: Result Comment: Spec imens with hCG levels near the threshold of the test (25 mIU/mL) may give a negative or indeterminate result. In such cases, another test should be performed with a new specimen in 48-72 hours. If early is suspected clinically in this setting, correlation with quantitative serum b-hCG level is suggested. [facility] has confirmed the use of plasma for this test. This has not been cleared or approved by the U.S. Food and Drug Administration. The FDA has determined that such clearance is not necessary. Performed By: #### U HCG #### [facility] [address] [place] [address] Research Engineer: Niesha Batres MD , Urineon HCG ( test) Ql (U) Negative NEGATIVE [facility] Comment on above: Specimens with hCG l evels near the threshold of the test (25 mIU/mL) may give a negative or indeterminate result. In such cases, another test should be performed with a new specimen in 48-72 hours. If early is suspected clinically in this setting, correlation with quantitative serum b-hCG level is suggested. [facility] has confirmed the use of plasma for this test. This has not been cleared or approved by the U.S. Food and Drug Administration. The FDA has determined that such clearance is not necessary. [facility] Basic Metabolic Panelon 11-1 Anion gap [Moles/Vol] 8.1 mmol/L Normal 6.0-15.0 [facility] Comment on above: Order Comment: pleas e change to 0900 per RN Kimberly Looney Performed By: #### M G, CMP, CBC, PT #### [facility] [address] [place] [address] [facility] Calcium [Mass/Vol] 8.3 mg/dL Low 8.6-10.3 [facility] Comment on above: Order Comment: pleas e change to 0900 per RN Kimberly Looney Performed By: #### M G, CMP, CBC, PT #### [facility] [address] [place] [id number] [facility] Chloride [Moles/Vol] 107 mmol/L Normal 98-107 [facility] Comment on above: Order Comment: pleas e change to 0900 per RN Kimberly Looney Performed By: #### M G, CMP, CBC, PT #### [facility] [address] [place] [id number] [facility] CO2 [Moles/Vol] 26.7 mmol/L Normal 21.0-31.0 [facility] Comment on above: Order Comment: pleas e change to 0900 per RN Kimberly Looney Performed By: #### M Zheng, CMP, CBC, PT #### [facility] [address] Creatinine [Mass/Vol] 0.57 mg/dL Low 0.60-1.20 [facility] Comment on above: Order Comment: pleas e change to 0900 per RN Kimberly Looney Performed By: #### Mary Calzada, CMP, CBC, PT #### [facility] [address] [place] [address] [place] Creatinine Clr Calc Pharmacy 122.00 [facility] Comment on above: Order Comment: pleas e change to 0900 per RN Kimberly Looney Performed By: #### Mary Calzada, CMP, CBC, PT #### [facility] [address] [place] [id number] [place] GFR/1.73 sq M.predicted MDRD (S/P/Bld) [Vol rate/Area] mL/min/{1.73_m2} [facility] Comment on above: Order Comment: pleas e change to 0900 per RN Kimberly Looney Performed By: #### M G, CMP, CBC, PT #### [facility] [address] [place] [id number] [facility] Glucose [Mass/Vol] 125 mg/dL High 70-100 [facility] Comment on above: Order Comment: pleas e change to 0900 per RN Kimberly Looney Result Comment: [place] om Glucose Reference Range is dependent on time and content of last meal. Glucose of more than 200 mg/dL in a nonstressed, ambulatory subject supports the diagnosis of Diabetes Mellitus. ADA recommended reference range Performed By: #### M G, CMP, CBC, PT #### [facility] [address] Potassium [Moles/Vol] 3.8 mmol/L Normal 3.5-5.1 [facility] Comment on above: Order Comment: pleas e change to 0900 per RN Kimberly Looney Performed By: #### M G, CMP, CBC, PT #### [facility] [address] Sodium [Moles/Vol] 138 mmol/L Normal 136-145 [facility] Comment on above: Order Comment: pleas e change to 0900 per RN Kimberly Looney Performed By: #### M G, CMP, CBC, PT #### [facility] [address] [place] [address] [place] Urea nitrogen [Mass/Vol] 2 mg/dL Low 7-25 [facility] Comment on above: Order Comment: pleas e change to 0900 per RN Kimberly Looney Performed By: #### M G, CMP, CBC, PT #### [facility] [address] Calcium [Mass/volume] in Ser um or PlasmaOrdered By: Tyrone Barron on 09-14-2023 Calcium [Mass/Vol] 8.3 mg/dL 8.6-10.3 [facility] Carbon dioxide, total [Moles /volume] in Serum or PlasmaOrdered By: Tyrone Barron on 09-14-2023 CO2 [Moles/Vol] 26.7 mmol/L 21.0-31.0 [facility] Chloride [Moles/volume] in S tessie or PlasmaOrdered By: Tyrone Barron on 09-14-2023 Chloride [Moles/Vol] 107 mmol/L 98-107 [facility] Creatinine [Mass/volume] in Serum or PlasmaOrdered By: Tyrone Barron on 09-14-2023 Creatinine [Mass/Vol] 0.57 mg/dL 0.60-1.20 [facility] Erythrocyte distribution wid th Auto (RBC) [Ratio]Ordered By: Tyrone Barron on 09-14-2023 Erythrocyte distribution width (RBC) [Ratio] 12.4 % 11.9-15.3 [facility] Ferritinon 09-14-2023 Ferritin [Mass/Vol] 204.3 ng/mL Normal 11.0-306.8 [facility] Comment on above: Order Comment: pleas e change to 0900 per RN Kimberly Looney Performed By: #### M G, CMP, CBC, PT #### [facility] [address] Ferritin [Mass/volume] in Se rum or PlasmaOrdered By: Tyrone Barron on 09-14-2023 Ferritin [Mass/Vol] 204.3 ng/mL 11.0-306.8 [facility] Folate [Mass/volume] in Seru m or PlasmaOrdered By: Tyrone Barron on 09-14-2023 Folate [Mass/Vol] 18.4 ng/mL >5.9 [facility] Comment on above: Folate reference ran ge: >5.9 ng/mlThe WHO technical consultation on folate and vitamin [id number] has determined that folate concentrations lessthan 4 ng/ml are considered deficient. Glucose [Mass/volume] in Ser um or PlasmaOrdered By: Tyrone Barron on 09-14-2023 Glucose [Mass/Vol] 125 mg/dL 70-100 [facility] Comment on above: ADA recommended refe rence rangeRandom Glucose Reference Range is dependent on time and content of last meal. Glucose of more than 200 mg/dL in a nonstressed, ambulatory subject supports the diagnosis of Diabetes Mellitus. Hematocrit Auto (Bld) [Volum e fraction]Ordered By: Tyrone Barron on 09-14-2023 Hematocrit (Bld) [Volume fraction] 36.4 % 34.0-46.4 [facility] Hemoglobin [Mass/volume] in BloodOrdered By: Tyrone Barron on 09-14-2023 Hemoglobin (Bld) [Mass/Vol] 12.4 g/dL 11.8-15.4 [facility] Hemogram CBC Without Diffon 09-14-2023 Erythrocyte distribution width (RBC) [Ratio] 12.4 % Normal 11.9-15.3 [facility] Comment on above: Order Comment: pleas e change to 0900 per RN Kimberly Looney Performed By: #### M G, CMP, CBC, PT #### [facility] [address] Hematocrit (Bld) [Volume fraction] 36.4 % Normal 34.0-46.4 [facility] Comment on above: Order Comment: pleas e change to 0900 per RN Kimberly Looney Performed By: #### M G, CMP, CBC, PT #### [address] Hemoglobin (Bld) [Mass/Vol] 12.4 g/dL Normal 11.8-15.4 [facility] Comment on above: Order Comment: pleas e change to 0900 per RN Kimberly Looney Performed By: #### M G, CMP, CBC, PT #### [facility] [address] [place] [address] MCH (RBC) [Entitic mass] 33.9 pg Normal 24.7-34.3 [facility] Comment on above: Order Comment: pleas e change to 0900 per RN Kimberly Looney Performed By: #### M G, CMP, CBC, PT #### [address] MCV (RBC) [Entitic vol] 99.9 fL Normal 80-100 [facility] Comment on above: Order Comment: pleas e change to 0900 per RN Kimberly Looney Performed By: #### M G, CMP, CBC, PT #### [address] Mean Corpuscular HGB Conc 33.9 g/dL Normal 32.0-35.0 [facility] Comment on above: Order Comment: pleas e change to 0900 per RN Kimberly Looney Performed By: #### M G, CMP, CBC, PT #### [address] Platelet mean volume (Bld) [Entitic vol] 7.4 fL Normal 6.3-10.7 [facility] Comment on above: Order Comment: pleas e change to 0900 per RN Kimberly Looney Result Comment: PERF ORMED BY: [place] [address] PATHOLOGIST SWEATB[employer] PERFORATOR ZURDO DOMINGO M.D. Performed By: #### M G, CMP, CBC, PT #### [address] Platelets (Bld) [#/Vol] 141 10*3/uL Low 150-450 [facility] Comment on above: Order Comment: pleas e change to 0900 per RN Kimberly Looney Performed By: #### M G, CMP, CBC, PT #### [address] RBC (Bld) [#/Vol] 3.65 10*6/uL Normal 3.60-5.00 [facility] Comment on above: Order Comment: pleas e change to 0900 per RN Kimberly Looney Performed By: #### M G, CMP, CBC, PT #### [address] WBC (Bld) [#/Vol] 4.1 10*3/uL Normal 3.8-11.6 [facility] Comment on above: Order Comment: pleas e change to 0900 per RN Kimberly Looney Performed By: #### M G, CMP, CBC, PT #### [address] Iron [Mass/volume] in Serum or PlasmaOrdered By: Tyrone Barron on 09-14-2023 Iron [Mass/Vol] 75 ug/dL 50-212 [facility] Iron and TIBC Profileon 08-31 % Iron Saturation 27.5 % Normal 20-50 [facility] Comment on above: Order Comment: pleas e change to 0900 per RN Kimberly Looney Performed By: #### M G, CMP, CBC, PT #### [address] Iron [Mass/Vol] 75 ug/dL Normal 50-212 [facility] Comment on above: Order Comment: pleas e change to 0900 per RN Kimberly Looney Performed By: #### M G, CMP, CBC, PT #### [facility] [address] [place] [id number] [place] Total Iron Binding Capacity 273 ug/dL Normal 255-450 [facility] Comment on above: Order Comment: pleas e change to 0900 per RN Kimberly Looney Performed By: #### M G, CMP, CBC, PT #### [facility] [address] [place] [id number] [place] Transferrin [Mass/Vol] 195 mg/dL Low 203-362 [facility] Comment on above: Order Comment: pleas e change to 0900 per RN Kimberly Lonoey Performed By: #### M G, CMP, CBC, PT #### [facility] [address] [place] [address] [place] Iron binding capacity [Mass/ volume] in Serum or PlasmaOrdered By: Tyrone Barron on 09-14-2023 Iron binding capacity [Mass/Vol] 273 ug/dL 255-450 [facility] Iron saturation [Mass Fracti on] in Serum or PlasmaOrdered By: Tyrone Barron on 09-14-2023 Iron saturation [Mass fraction] 27.5 % 20-50 [facility] Leukocytes [#/volume] correc winnie for nucleated erythrocytes in Blood by Automated counOrdered By: Tyrone Barron on 09-14-2023 WBC corrected for nucl RBC Auto (Bld) [#/Vol] 4.1 10*3/uL 3.8-11.6 [facility] MCH Auto (RBC) [Entitic mass ]Ordered By: Tyrone Barron on 09-14-2023 MCH (RBC) [Entitic mass] 33.9 pg 24.7-34.3 [facility] MCHC Auto (RBC) [Mass/Vol]Or dered By: Tyrone Barron on 09-14-2023 MCHC (RBC) [Mass/Vol] 33.9 g/dL 32.0-35.0 [facility] MCV Auto (RBC) [Entitic vol] Ordered By: Tyrone Barron on 09-14-2023 MCV (RBC) [Entitic vol] 99.9 fL 80-100 [facility] Magnesiumon 09-14-2023 Magnesium [Mass/Vol] 1.8 mg/dL Low 1.9-2.7 [facility] Comment on above: Order Comment: pleas e change to 0900 per KELECHI Looney Performed By: #### M G, CMP, CBC, PT #### [facility] [address] Magnesium [Mass/volume] in S tessie or PlasmaOrdered By: Tyrone Barron on 09-14-2023 Magnesium [Mass/Vol] 1.8 mg/dL 1.9-2.7 [facility] No Panel InformationOrdered By: Tyrone Barron on 09-14-2023 Estimated GFR (CKD-EPI) > 60.0 mL/Min [facility] Creatinine Clearance (Chem 122.00 [facility] Phosphate [Mass/volume] in S tessie or PlasmaOrdered By: Tyrone Barron on 09-14-2023 Phosphate [Mass/Vol] 2.9 mg/dL 2.5-4.5 [facility] Phosphoruson 09-14-2023 Phosphate [Mass/Vol] 2.9 mg/dL Normal 2.5-4.5 [facility] Comment on above: Order Comment: pleas e change to 0900 per KELECHI Looney Performed By: #### M G, CMP, CBC, PT #### [facility] [address] Platelet mean volume Auto (B ld) [Entitic vol]Ordered By: Tyrone Barron on 09-14-2023 Platelet mean volume (Bld) [Entitic vol] 7.4 fL 6.3-10.7 [facility] Platelets Auto (Bld) [#/Vol] Ordered By: Tyrone Barron on 09-14-2023 Platelets (Bld) [#/Vol] 141 10*3/uL 150-450 [facility] Potassium [Moles/volume] in Serum or PlasmaOrdered By: Tyrone Barron on 09-14-2023 Potassium [Moles/Vol] 3.8 mmol/L 3.5-5.1 [facility] RBC Auto (Bld) [#/Vol]Ordere d By: Tyrone Barron on 09-14-2023 RBC (Bld) [#/Vol] 3.65 10*6/uL 3.60-5.00 [facility] Serum or plasma anion gap de terminationOrdered By: Tyrone Barron on 09-14-2023 Anion gap [Moles/Vol] 8.1 mmol/L 6.0-15.0 [facility] Sodium [Moles/volume] in Ser um or PlasmaOrdered By: Tyrone Barron on 09-14-2023 Sodium [Moles/Vol] 138 mmol/L 136-145 [facility] Transferrin [Mass/volume] in Serum or PlasmaOrdered By: Tyrone Barron on 09-14-2023 Transferrin [Mass/Vol] 195 mg/dL 203-362 [facility] Urea nitrogen [Mass/volume] in Serum or PlasmaOrdered By: Tyrone Barron on 09-14-2023 Urea nitrogen [Mass/Vol] 2 mg/dL 7-25 [facility] Vit. B12/Folate Profileon Cobalamin (Vitamin B12) [Mass/Vol] 1354 pg/mL High 180-914 [facility] Comment on above: Order Comment: pleas e change to 0900 per RN Kimberly Looney Performed By: #### M G, CMP, CBC, PT #### [address] Folate 18.4 ng/mL Normal >5.9 [facility] Comment on above: Order Comment: pleas e change to 0900 per RN Kimberly Looney Result Comment: Fiorella te reference range: >5.9 ng/ml The WHO technical consultation on folate and vitamin b12 deficiencies has determined that folate concentrations less than 4 ng/ml are considered deficient. PERFORMED BY: [place] [address] PATHOLOGIST SWEATB[employer] PERFORATOR ZURDO DOMINGO M.D. Performed By: #### M G, CMP, CBC, PT #### [facility] [address] [place] [id number] [facility] Vitamin B12 ser/plasOrdered By: Tyrone Barron on 09-14-2023 Cobalamin (Vitamin B12) [Mass/Vol] 1354 pg/mL 180-914 [facility] Alanine aminotransferase [En zymatic activity/volume] in Serum or PlasmaOrdered By: Gem Velasco on 09-12-2023 ALT [Catalytic activity/Vol] 16 U/L 7-52 [facility] Albumin [Mass/volume] in Ser um or Plasma by Bromocresol green (BCG) dye binding methoOrdered By: Gem Velasco on 09-12-2023 Albumin BCG dye [Mass/Vol] 3.4 g/dL 3.5-5.7 [facility] Alkaline phosphatase [Enzyma tic activity/volume] in Serum or PlasmaOrdered By: Gem Velasco on 09-12-2023 ALP [Catalytic activity/Vol] 79 U/L 34-104 [facility] Aspartate aminotransferase [ Enzymatic activity/volume] in Serum or PlasmaOrdered By: Gem Velasco on 09-12-2023 AST [Catalytic activity/Vol] 28 U/L 13-39 [facility] Basophils Auto (Bld) [#/Vol] Ordered By: Gem Velasco on 09-12-2023 Basophils (Bld) [#/Vol] 0.0 10*3/uL 0.0-0.2 [facility] Basophils/100 WBC Auto (Bld) Ordered By: Gem Velasco on 09-12-2023 Basophils/100 WBC (Bld) 0.3 % . [facility] Bilirubin.total [Mass/volume ] in Serum or PlasmaOrdered By: Gem Velasco on 09-12-2023 Bilirubin [Mass/Vol] 0.5 mg/dL 0.3-1.[address] [facility] [address] head/brain wo conon 09-12 CT head/brain wo con [facility] [address] [place] [address] [place] [address] CT Scan Report Signed Patient: Karyn Estes MR#: [id number] : 1990 Acct:[id number] Age/Sex: 33 / F ADM Date: 09/11/23 Loc: Room: [address] [place] [address] Type: ADM IN Attending Dr: Gem Velasco [...] Oriana Doherty M.D.09/12/2023 6:47 AM Dictation Location: [place] [address] Transcribed By: [facility] 09/12/23646 Dictated By: Oriana Doherty MD 09/12/2345 Signed By: 09/12/2347 Normal [facility] Complete Blood Count Auto Di ffon 09-12-2023 Basophils (Bld) [#/Vol] 0.0 10*3/uL Normal 0.0-0.2 [facility] Comment on above: Result Comment: PERF ORMED BY: [place] [address] PATHOLOGIST SWEATB[employer] PERFORATOR ZURDO DOMINGO M.D. Performed By: #### M G, CMP, CBC, PT #### [address] Basophils/100 WBC (Bld) 0.3 % Normal . [facility] Comment on above: Performed By: #### M G, CMP, CBC, PT #### [facility] [address] Eosinophils (Bld) [#/Vol] 0.1 10*3/uL Normal 0.0-0.45 [facility] Comment on above: Performed By: #### M G, CMP, CBC, PT #### [address] Eosinophils/100 WBC (Bld) 2.4 % Normal . [facility] Comment on above: Performed By: #### M G, CMP, CBC, PT #### [address] Erythrocyte distribution width (RBC) [Ratio] 12.4 % Normal 11.9-15.3 [facility] Comment on above: Performed By: #### M G, CMP, CBC, PT #### [address] Hematocrit (Bld) [Volume fraction] 33.3 % Low 34.0-46.4 [facility] Comment on above: Performed By: #### M G, CMP, CBC, PT #### [address] Hemoglobin (Bld) [Mass/Vol] 11.3 g/dL Low 11.8-15.4 [facility] Comment on above: Performed By: #### M G, CMP, CBC, PT #### [place] [address] [place] Lymphocytes (Bld) [#/Vol] 1.2 10*3/uL Normal 1.00-4.8 [facility] Comment on above: Performed By: #### M G, CMP, CBC, PT #### [place] [address] [place] Lymphocytes/100 WBC (Bld) 26.5 % Normal . [facility] Comment on above: Performed By: #### M G, CMP, CBC, PT #### [address] MCH (RBC) [Entitic mass] 34.1 pg Normal 24.7-34.3 [facility] Comment on above: Performed By: #### M G, CMP, CBC, PT #### [address] MCV (RBC) [Entitic vol] 100.2 fL High 80-100 [facility] Comment on above: Performed By: #### M G, CMP, CBC, PT #### [address] Mean Corpuscular HGB Conc 34.0 g/dL Normal 32.0-35.0 [facility] Comment on above: Performed By: #### M G, CMP, CBC, PT #### [address] Monocytes (Bld) [#/Vol] 0.4 10*3/uL Normal 0.0-0.8 [facility] Comment on above: Performed By: #### M G, CMP, CBC, PT #### [address] Monocytes/100 WBC (Bld) 7.8 % Normal . [facility] Comment on above: Performed By: #### M G, CMP, CBC, PT #### [address] Neutrophils (Bld) [#/Vol] 2.9 10*3/uL Normal 1.8-7.7 [facility] Comment on above: Performed By: #### M G, CMP, CBC, PT #### [address] Neutrophils/100 WBC (Bld) 63.0 % Normal . [facility] Comment on above: Performed By: #### M G, CMP, CBC, PT #### [address] NRBC% 0.1 /100{WBC} Normal 0-0.5 [facility] Comment on above: Performed By: #### M G, CMP, CBC, PT #### [address] Platelet mean volume (Bld) [Entitic vol] 8.0 fL Normal 6.3-10.7 [facility] Comment on above: Performed By: #### M G, CMP, CBC, PT #### [facility] [address] Platelets (Bld) [#/Vol] 138 10*3/uL Low 150-450 [facility] Comment on above: Performed By: #### M G, CMP, CBC, PT #### [facility] [address] [place] [address] RBC (Bld) [#/Vol] 3.33 10*6/uL Low 3.60-5.00 [facility] Comment on above: Performed By: #### M G, CMP, CBC, PT #### [address] WBC (Bld) [#/Vol] 4.6 10*3/uL Normal 3.8-11.6 [facility] Comment on above: Performed By: #### M G, CMP, CBC, PT #### [facility] [address] [place] [address] Comprehensive Metabolic Pane katja 09-12-2023 Albumin [Mass/Vol] 3.4 g/dL Low 3.5-5.7 [facility] Comment on above: Performed By: #### M G, CMP, CBC, PT #### [facility] [address] [place] [address] Albumin/Globulin [Mass ratio] 1.3 {ratio} Normal [facility] Comment on above: Performed By: #### M G, CMP, CBC, PT #### [facility] [address] ALP [Catalytic activity/Vol] 79 U/L Normal 34-104 [facility] Comment on above: Performed By: #### M G, CMP, CBC, PT #### [facility] [address] [place] [address] ALT [Catalytic activity/Vol] 16 U/L Normal 7-52 [facility] Comment on above: Performed By: #### M G, CMP, CBC, PT #### [facility] [address] [place] [address] [place] Anion gap [Moles/Vol] 7.6 mmol/L Normal 6.0-15.0 [facility] Comment on above: Performed By: #### M G, CMP, CBC, PT #### [facility] [address] [place] [address] [place] AST [Catalytic activity/Vol] 28 U/L Normal 13-39 [facility] Comment on above: Performed By: #### M G, CMP, CBC, PT #### [facility] [address] Bilirubin [Mass/Vol] 0.5 mg/dL Normal 0.3-1.0 [facility] Comment on above: Performed By: #### M G, CMP, CBC, PT #### [facility] [address] Calcium [Mass/Vol] 8.0 mg/dL Low 8.6-10.3 [facility] Comment on above: Performed By: #### M G, CMP, CBC, PT #### [facility] [address] [place] [address] [place] Chloride [Moles/Vol] 109 mmol/L High 98-107 [facility] Comment on above: Performed By: #### M G, CMP, CBC, PT #### [facility] [address] [place] [address] [place] CO2 [Moles/Vol] 24.1 mmol/L Normal 21.0-31.0 [facility] Comment on above: Performed By: #### M G, CMP, CBC, PT #### [facility] [address] [place] [address] [place] Creatinine [Mass/Vol] 0.64 mg/dL Normal 0.60-1.20 [facility] Comment on above: Performed By: #### M G, CMP, CBC, PT #### [facility] [address] [place] [address] [place] Creatinine Clr Calc Pharmacy 105.36 Normal [facility] Comment on above: Performed By: #### M G, CMP, CBC, PT #### [facility] [address] [place] [address] [place] GFR/1.73 sq M.predicted MDRD (S/P/Bld) [Vol rate/Area] mL/min/{1.73_m2} [facility] Comment on above: Performed By: #### M G, CMP, CBC, PT #### [facility] [address] Globulin (S) [Mass/Vol] 2.6 g/dL Normal [facility] Comment on above: Performed By: #### M G, CMP, CBC, PT #### [facility] [address] Glucose [Mass/Vol] 95 mg/dL Normal 70-100 [facility] Comment on above: Result Comment: [facility] Glucose Reference Range is dependent on time and content of last meal. Glucose of more than 200 mg/dL in a nonstressed, ambulatory subject supports the diagnosis of Diabetes Mellitus. ADA recommended reference range Performed By: #### M G, CMP, CBC, PT #### [facility] [address] Potassium [Moles/Vol] 3.7 mmol/L Normal 3.5-5.1 [facility] Comment on above: Performed By: #### M G, CMP, CBC, PT #### [facility] [address] Protein [Mass/Vol] 6.0 g/dL Low 6.4-8.9 [facility] Comment on above: Performed By: #### M G, CMP, CBC, PT #### [facility] [address] Sodium [Moles/Vol] 137 mmol/L Normal 136-145 [facility] Comment on above: Performed By: #### M G, CMP, CBC, PT #### [facility] [address] Urea nitrogen [Mass/Vol] 5 mg/dL Low 7-25 [facility] Comment on above: Performed By: #### M G, CMP, CBC, PT #### [facility] [address] [place] [address] [facility] Eosinophils Auto (Bld) [#/Vo l]Ordered By: Gem Velasco on 09-12-2023 Eosinophils (Bld) [#/Vol] 0.1 10*3/uL 0.0-0.45 [facility] Eosinophils/100 WBC Auto (Bl d)Ordered By: Gem Velasco on 09-12-2023 Eosinophils/100 WBC (Bld) 2.4 % . [facility] Globulin Calc (S) [Mass/Vol] Ordered By: Gem Velasco on 09-12-2023 Globulin (S) [Mass/Vol] 2.6 g/dL [facility] INR in Platelet poor plasma by Coagulation assayOrdered By: Gem Velasco on 09-12-2023 INR Coag (PPP) [Relative time] 0.9 {INR} [facility] Comment on above: INR Therapeutic Rang [...] 09-12-2023 Lymphocytes (Bld) [#/Vol] 1.2 10*3/uL 1.00-4.8 [facility] Lymphocytes/100 WBC Auto (Bl d)Ordered By: Gem Velasco on 09-12-2023 Lymphocytes/100 WBC (Bld) 26.5 % . [facility] Magnesiumon 09-12-2023 Magnesium [Mass/Vol] 2.2 mg/dL Normal 1.9-2.7 [facility] Comment on above: Result Comment: PERF ORMED BY: [facility] [address] [place] [address] PATHOLOGIST SWEATBAND PERFORATOR ZURDO DOMINGO M.D. Performed By: #### M G, CMP, CBC, PT #### [facility] [address] [place] [address] [place] Monocytes Auto (Bld) [#/Vol] Ordered By: Gem Velasco on 09-12-2023 Monocytes (Bld) [#/Vol] 0.4 10*3/uL 0.0-0.8 [facility] Monocytes/100 WBC Auto (Bld) Ordered By: Gem Velasco on 09-12-2023 Monocytes/100 WBC (Bld) 7.8 % . [facility] Neutrophils Auto (Bld) [#/Vo l]Ordered By: Gem Velasco on 09-12-2023 Neutrophils (Bld) [#/Vol] 2.9 10*3/uL 1.8-7.7 [facility] Neutrophils/100 WBC Auto (Bl d)Ordered By: Gem Velasco on 09-12-2023 Neutrophils/100 WBC (Bld) 63.0 % . [facility] Nucleated erythrocytes [Pres ence] in Blood by Automated countOrdered By: Gem Velasco on 09-12-2023 Nucleated RBC Auto Ql (Bld) 0.1 /100{WBC} 0-0.5 [facility] Protein [Mass/volume] in Ser um or PlasmaOrdered By: Gem Velasco on 09-12-2023 Protein [Mass/Vol] 6.0 g/dL 6.4-8.9 [facility] Prothrombin Time INRon 09-12 INR Coag (PPP) [Relative time] 0.9 {INR} Normal [facility] Comment on above: Result Comment: INR [...] heart valves: 3 - 4.5 PERFORMED BY: [facility] [address] [facility] [place] [id number] PATHOLOGIST SWEATBAND PERFORATOR ZURDO DOMINGO M.D. Performed By: #### M G, CMP, CBC, PT #### [facility] [address] [place] [address] [facility] PT Coag (PPP) [Time] 11.3 s Normal 9.0-12.9 [facility] Comment on above: Result Comment: A he matocrit value greater than 55% may lead to inaccurate results in coagulation testing. Patients having hematocrit values >55% require a special collection tube for coagulation studies. Please contact the laboratory at [phone] for redraw instructions. Performed By: #### M G, CMP, CBC, PT #### [facility] [address] [place] [address] [facility] Prothrombin time (PT)Ordered By: Gem Velasco on 09-12-2023 PT Coag (PPP) [Time] 11.3 s 9.0-12.9 [facility] Comment on above: A hematocrit value g reater than 55% may lead to inaccurate results in coagulation testing. Patients having hematocrit values >55% require a special collection tube for coagulation studies. Please contact the laboratory at [phone] for redraw instructions. Serum or plasma albumin/glob ulin mass ratioOrdered By: Gem Velasco on 09-12-2023 Albumin/Globulin [Mass ratio] 1.3 {ratio} [facility] WBC Auto (Bld) [#/Vol]Ordere d By: Gem Velasco on 09-12-2023 WBC (Bld) [#/Vol] 4.6 10*3/uL 3.8-11.6 [facility] Amphetamine Screen Ql (U)Ord ered By: Roby Thakkar on 09-11-2023 Amphetamines Ql (U) Negative Negative [facility] Automated epithelial cells c ount in urine sediment (number/area)Ordered By: Roby Thakkar on 09-11-2023 Epithelial cells Auto (Urine sed) [#/Area] 10-19 [HPF] 0-2 [facility] Automated erythrocytes count in urine sediment (number/area)Ordered By: Roby Thakkar on 09-11-2023 RBC Auto (Urine sed) [#/Area] 1-2 [HPF] 0-4 [facility] Automated leukocytes count i n urine sediment (number/area)Ordered By: Roby Bigg on 09-11-2023 WBC Auto (Urine sed) [#/Area] 10-19 [HPF] 0-4 [facility] Automated urine hyaline cast s count (number/volume)Ordered By: Roby Bigg on 09-11-2023 Hyaline casts Auto (U) [#/Vol] 3-4 [LPF] 0-1 [facility] Barbiturates [Presence] in U rine by Screen methodOrdered By: Roby Thakkar on 09-11-2023 Barbiturates Screen Ql (U) Negative Negative [facility] Basic Metabolic Panelon 08-31 Anion gap [Moles/Vol] 13.2 mmol/L Normal 6.0-15.0 [facility] Comment on above: Performed By: #### M G, BMP, PRL, CBC #### [facility] [address] [place] [address] [place] Calcium [Mass/Vol] 9.1 mg/dL Normal 8.6-10.3 [facility] Comment on above: Performed By: #### M G, BMP, PRL, CBC #### [facility] [address] [place] [id number] [place] Chloride [Moles/Vol] 103 mmol/L Normal 98-107 [facility] Comment on above: Performed By: #### M G, BMP, PRL, CBC #### [facility] [address] [place] [id number] [place] CO2 [Moles/Vol] 22.9 mmol/L Normal 21.0-31.0 [facility] Comment on above: Performed By: #### M G, BMP, PRL, CBC #### [facility] [address] [place] [id number] [place] Creatinine [Mass/Vol] 0.68 mg/dL Normal 0.60-1.20 [facility] Comment on above: Performed By: #### M G, BMP, PRL, CBC #### [facility] [address] [place] [id number] [place] Creatinine Clr Calc Pharmacy 96.07 Normal [facility] Comment on above: Performed By: #### M G, BMP, PRL, CBC #### [facility] [address] [place] [address] GFR/1.73 sq M.predicted MDRD (S/P/Bld) [Vol rate/Area] mL/min/{1.73_m2} Normal [facility] Comment on above: Performed By: #### M G, BMP, PRL, CBC #### [address] Glucose [Mass/Vol] 91 mg/dL Normal 70-100 [facility] Comment on above: Result Comment: [facility] Glucose Reference Range is dependent on time and content of last meal. Glucose of more than 200 mg/dL in a nonstressed, ambulatory subject supports the diagnosis of Diabetes Mellitus. ADA recommended reference range Performed By: #### M G, BMP, PRL, CBC #### [address] Potassium [Moles/Vol] 4.1 mmol/L Normal 3.5-5.1 [facility] Comment on above: Result Comment: Hemo lysis is present at a level that could interfere with the result. Performed By: #### M G, BMP, PRL, CBC #### [address] Sodium [Moles/Vol] 135 mmol/L Low 136-145 [facility] Comment on above: Performed By: #### M G, BMP, PRL, CBC #### [address] Urea nitrogen [Mass/Vol] 6 mg/dL Low 7-25 [facility] Comment on above: Performed By: #### M G, BMP, PRL, CBC #### [address] Basophils Auto (Bld) [#/Vol] Ordered By: Roby Thakkar on 09-11-2023 Basophils (Bld) [#/Vol] 0.0 10*3/uL 0.0-0.2 [facility] Basophils/100 WBC Auto (Bld) Ordered By: Roby Thakkar on 09-11-2023 Basophils/100 WBC (Bld) 0.4 % . [facility] Benzodiazepines Screen Ql (U )Ordered By: Roby Thakkar on 09-11-2023 Benzodiazepines Ql (U) Negative Negative [facility] Benzoylecgonine [Presence] i n Urine by Screen methodOrdered By: Roby Thakkar on 09-11-2023 Benzoylecgonine Screen Ql (U) Negative Negative [facility] Bilirubin Test strip Ql (U)O rdered By: Roby Thakkar on 09-11-2023 Bilirubin Ql (U) Negative Negative [facility] Calcium [Mass/volume] in Ser um or PlasmaOrdered By: Roby Thakkar on 09-11-2023 Calcium [Mass/Vol] 9.1 mg/dL 8.6-10.3 [facility] Cannabinoids [Presence] in U rine by Screen methodOrdered By: Roby Thakkar on 09-11-2023 Cannabinoids Screen Ql (U) Negative Negative [facility] Comment on above: These are unconfirme d results and should not be used for legal purposes. Drug Cut-Off Concentration: AMPH 1000 ng/mL DARNELL 200 ng/mL LESLIE 200 ng/mL COCM 300 ng/mL OP 300 ng/mL PCP 25 ng/mL THC 20 ng/mL Carbon dioxide, total [Moles /volume] in Serum or PlasmaOrdered By: Roby Thakkar on 09-11-2023 CO2 [Moles/Vol] 22.9 mmol/L 21.0-31.0 [facility] Chloride [Moles/volume] in S tessie or PlasmaOrdered By: Roby Thakkar on 09-11-2023 Chloride [Moles/Vol] 103 mmol/L 98-107 [facility] Color Auto (U)Ordered By: Arun Thakkar on 09-11-2023 Color (U) Yellow Yellow [facility] Complete Blood Count Auto Di ffon 09-11-2023 Basophils (Bld) [#/Vol] 0.0 10*3/uL Normal 0.0-0.2 [facility] Comment on above: Result Comment: PERF ORMED BY: [facility] [address] [place] [address] PATHOLOGIST SWEATB[employer] PERFORATOR ZURDO DOMINGO M.D. Performed By: #### M G, BMP, PRL, CBC #### [address] Basophils/100 WBC (Bld) 0.4 % Normal . [facility] Comment on above: Performed By: #### M G, BMP, PRL, CBC #### [address] Eosinophils (Bld) [#/Vol] 0.0 10*3/uL Normal 0.0-0.45 [facility] Comment on above: Performed By: #### M G, BMP, PRL, CBC #### [address] Eosinophils/100 WBC (Bld) 0.8 % Normal . [facility] Comment on above: Performed By: #### M G, BMP, PRL, CBC #### [address] Erythrocyte distribution width (RBC) [Ratio] 12.2 % Normal 11.9-15.3 [facility] Comment on above: Performed By: #### M G, BMP, PRL, CBC #### [address] Hematocrit (Bld) [Volume fraction] 35.9 % Normal 34.0-46.4 [facility] Comment on above: Performed By: #### M G, BMP, PRL, CBC #### [address] Hemoglobin (Bld) [Mass/Vol] 12.4 g/dL Normal 11.8-15.4 [facility] Comment on above: Performed By: #### M G, BMP, PRL, CBC #### [address] Lymphocytes (Bld) [#/Vol] 1.0 10*3/uL Normal 1.00-4.8 [facility] Comment on above: Performed By: #### M G, BMP, PRL, CBC #### [address] Lymphocytes/100 WBC (Bld) 22.7 % Normal . [facility] Comment on above: Performed By: #### M G, BMP, PRL, CBC #### [address] MCH (RBC) [Entitic mass] 34.1 pg Normal 24.7-34.3 [facility] Comment on above: Performed By: #### M G, BMP, PRL, CBC #### [address] MCV (RBC) [Entitic vol] 99.1 fL Normal 80-100 [facility] Comment on above: Performed By: #### M G, BMP, PRL, CBC #### [address] Mean Corpuscular HGB Conc 34.4 g/dL Normal 32.0-35.0 [facility] Comment on above: Performed By: #### M G, BMP, PRL, CBC #### [address] Monocytes (Bld) [#/Vol] 0.3 10*3/uL Normal 0.0-0.8 [facility] Comment on above: Performed By: #### M G, BMP, PRL, CBC #### [place] [address] [place] Monocytes/100 WBC (Bld) 21.57 % High 0.00-20.00 [facility] Comment on above: Result Comment: For adults in ED, MDW > 20.0 may be associated with a higher risk of sepsis during the first 12 hrs of hospital admission Performed By: #### M G, BMP, PRL, CBC #### [place] [address] [place] Monocytes/100 WBC (Bld) 7.3 % Normal . [facility] Comment on above: Performed By: #### M G, BMP, PRL, CBC #### [place] [address] [place] Neutrophils (Bld) [#/Vol] 3.1 10*3/uL Normal 1.8-7.7 [facility] Comment on above: Performed By: #### Mary G, BMP, PRL, CBC #### [address] Neutrophils/100 WBC (Bld) 68.8 % Normal . [facility] Comment on above: Performed By: #### Mary G, BMP, PRL, CBC #### [address] NRBC% 0.1 /100{WBC} Normal 0-0.5 [facility] Comment on above: Performed By: #### M Zheng, BMP, PRL, CBC #### [address] Platelet mean volume (Bld) [Entitic vol] 8.2 fL Normal 6.3-10.7 [facility] Comment on above: Performed By: #### Mary G, BMP, PRL, CBC #### [address] Platelets (Bld) [#/Vol] 149 10*3/uL Low 150-450 [facility] Comment on above: Performed By: #### M G, BMP, PRL, CBC #### [address] RBC (Bld) [#/Vol] 3.62 10*6/uL Normal 3.60-5.00 [facility] Comment on above: Performed By: #### M G, BMP, PRL, CBC #### [place] [address] [place] WBC (Bld) [#/Vol] 4.4 10*3/uL Normal 3.8-11.6 [facility] Comment on above: Performed By: #### M G, BMP, PRL, CBC #### [address] Creatinine [Mass/volume] in Serum or PlasmaOrdered By: Roby Thakkar on 09-11-2023 Creatinine [Mass/Vol] 0.68 mg/dL 0.60-1.20 [facility] Dipstick and Microscopicon 1 11-11-2022 Appearance (U) Cloudy Critically abnormal Clear [facility] Comment on above: Order Comment: Name Collection Type:: Clean-Voided Midstream Performed By: #### M G, CMP, CBC, PT #### [facility] [address] [place] [address] [place] Bacteria,Urine 3+ High None Seen [facility] Comment on above: Order Comment: Name Collection Type:: Clean-Voided Midstream Performed By: #### M G, CMP, CBC, PT #### [facility] [address] [place] [address] [place] Bilirubin,Urine Negative Normal Negative [facility] Comment on above: Order Comment: Name Collection Type:: Clean-Voided Midstream Performed By: #### M G, CMP, CBC, PT #### [facility] [address] [place] [address] [place] Color (U) Yellow Normal Yellow [facility] Comment on above: Order Comment: Name Collection Type:: Clean-Voided Midstream Performed By: #### M G, CMP, CBC, PT #### [facility] [address] [place] [address] [place] Glucose Ql (U) Normal Normal Normal [facility] Comment on above: Order Comment: Name Collection Type:: Clean-Voided Midstream Performed By: #### M G, CMP, CBC, PT #### [facility] [address] [place] [address] [place] Hyaline Casts,Urine 3-4 High 0-1 [facility] Comment on above: Order Comment: Name Collection Type:: Clean-Voided Midstream Performed By: #### M G, CMP, CBC, PT #### [facility] [address] [place] [address] [place] Ketones Ql (U) Negative Normal Negative [facility] Comment on above: Order Comment: Name Collection Type:: Clean-Voided Midstream Performed By: #### M G, CMP, CBC, PT #### [facility] [address] [place] [address] [place] Leukocyte esterase Test strip Ql (U) 1+ High Negative [facility] Comment on above: Order Comment: Name Collection Type:: Clean-Voided Midstream Performed By: #### M G, CMP, CBC, PT #### [facility] [address] [place] [address] [place] Nitrite,Urine Negative Normal Negative [facility] Comment on above: Order Comment: Name Collection Type:: Clean-Voided Midstream Performed By: #### M G, CMP, CBC, PT #### [facility] [address] [place] [address] Occult Blood,Urine Trace High Negative [facility] Comment on above: Order Comment: Name Collection Type:: Clean-Voided Midstream Performed By: #### M G, CMP, CBC, PT #### [address] pH (U) 6.0 [pH] Normal 5.0-9.0 [facility] Comment on above: Order Comment: Name Collection Type:: Clean-Voided Midstream Performed By: #### M G, CMP, CBC, PT #### [facility] [address] [place] [address] Protein,Urine Negative Normal Negative [facility] Comment on above: Order Comment: Name Collection Type:: Clean-Voided Midstream Performed By: #### M G, CMP, CBC, PT #### [facility] [address] [place] [address] RBC,Urine 1-2 Normal 0-4 [facility] Comment on above: Order Comment: Name Collection Type:: Clean-Voided Midstream Performed By: #### M G, CMP, CBC, PT #### [facility] [address] [place] [address] [place] Specificy [place],Urine 1.005 Normal 1.001-1.03 0 [facility] Comment on above: Order Comment: Name Collection Type:: Clean-Voided Midstream Performed By: #### M G, CMP, CBC, PT #### [facility] [address] [place] [address] [place] Squamous Epithelial Cell,Urine 10-19 High 0-2 [facility] Comment on above: Order Comment: Name Collection Type:: Clean-Voided Midstream Performed By: #### M G, CMP, CBC, PT #### [facility] [address] [place] [address] Urobilinogen,Urine Normal Normal Normal [facility] Comment on above: Order Comment: Name Collection Type:: Clean-Voided Midstream Performed By: #### M G, CMP, CBC, PT #### [facility] [address] [place], [place] [id number] [place] WBC,Urine 10-19 High 0-4 [facility] Comment on above: Order Comment: Name Collection Type:: Clean-Voided Midstream Performed By: #### M G, CMP, CBC, PT #### [address] Drug Screen,Urineon 09-11-20 23 Amphetamine Screen,Urine Negative Normal Negative [facility] Comment on above: Performed By: #### M G, CMP, CBC, PT #### [facility] [address] [place] [address] Barbiturate Screen,Urine Negative Normal Negative [facility] Comment on above: Performed By: #### M G, CMP, CBC, PT #### [facility] [address] [place] [address] [place] Benzodiazepines Screen,Urine Negative Normal Negative [facility] Comment on above: Performed By: #### M G, CMP, CBC, PT #### [facility] [address] [place] [address] Cannabinoid Screen,Urine Negative Normal Negative [facility] Comment on above: Result Comment: Thes e are unconfirmed results and should not be used for legal purposes. Drug Cut-Off Concentration: AMPH 1000 ng/mL DARNELL 200 ng/mL LESLIE 200 ng/mL COCM 300 ng/mL OP 300 ng/mL PCP 25 ng/mL THC 20 ng/mL PERFORMED BY: [place] [address] PATHOLOGIST SWEATBAND PERFORATOR ZURDO DOMINGO M.D. Performed By: #### M G, CMP, CBC, PT #### [facility] [address] Cocaine Screen,Urine Negative Normal Negative [facility] Comment on above: Performed By: #### M G, CMP, CBC, PT #### [facility] [address] Opiate Screen,Urine Negative Normal Negative [facility] Comment on above: Performed By: #### M G, CMP, CBC, PT #### [facility] [address] [place] [address] [place] Phencyclidine Screen,Urine Negative Normal Negative [facility] Comment on above: Performed By: #### M G, CMP, CBC, PT #### [facility] [address] ECG 12 lead ECGon 09-11-2023 ECG 12 lead ECG [facility] [place] [address] [place] [address] Electrocardiograph Report Signed Patient: Karyn Esets MR#: [id number] : 1990 Acct:[id number] Age/Sex: 33 / F ADM Date: 09/11/23 Loc: ER Room: Type: [facility] ER Attending Dr: Ordering Provider: Roby [...] sinus rhythm Confirmed by Roby THAKKAR DO ([id number]) on 09/11/2023 8:45:31 PM Referred By: Electronically Signed By:Roby THAKKAR DO Transcribed By: MUS Signed By Roby Thakkar DO 11/11/222044 Normal [facility] Eosinophils Auto (Bld) [#/Vo l]Ordered By: Roby Thakkar on 09-11-2023 Eosinophils (Bld) [#/Vol] 0.0 10*3/uL 0.0-0.45 [facility] Eosinophils/100 WBC Auto (Bl d)Ordered By: Roby Thakkar on 09-11-2023 Eosinophils/100 WBC (Bld) 0.8 % . [facility] Erythrocyte distribution wid th Auto (RBC) [Ratio]Ordered By: Roby Thakkar on 09-11-2023 Erythrocyte distribution width (RBC) [Ratio] 12.2 % 11.9-15.3 [facility] Ethanol [Mass/volume] in Ser um or PlasmaOrdered By: Roby Thakkar on 09-11-2023 Ethanol [Mass/Vol] mg/dL [facility] Ethanol [Mass/Vol] TNP [facility] Comment on above: Test not performed Ethyl Alcohol Profileon 08-31 Ethanol [Mass/Vol] mg/dL Normal [facility] Comment on above: Performed By: #### M G, CMP, CBC, PT #### [facility] [address] Percent Ethanol Not performed Normal [facility] Comment on above: Result Comment: PERF ORMED BY: [facility] [address] [place] [address] PATHOLOGIST SWEATBAND PERFORATOR ZURDO DOMINGO M.D. Performed By: #### M G, CMP, CBC, PT #### [facility] [address] Glucose [Mass/volume] in Ser um or PlasmaOrdered By: Roby Thakkar on 09-11-2023 Glucose [Mass/Vol] 91 mg/dL 70-100 [facility] Comment on above: ADA recommended refe rence rangeRandom Glucose Reference Range is dependent on time and content of last meal. Glucose of more than 200 mg/dL in a nonstressed, ambulatory subject supports the diagnosis of Diabetes Mellitus. HCG ( test) IAmila d Ql (U)Ordered By: Roby Thakkar on 09-11-2023 HCG ( test) Ql (U) Negative [facility] HCG,Urineon 09-11-2023 Beta HCG ( test) Ql (U) Negative Normal [facility] Comment on above: Order Comment: Name Collection Type:: Clean-Voided Midstream Result Comment: PERF ORMED BY: [facility] [address] [place] [address] PATHOLOGIST SWEATBAND PERFORATOR UZRDO DOMINGO M.D. Performed By: #### M G, CMP, CBC, PT #### [facility] [address] Hematocrit Auto (Bld) [Volum e fraction]Ordered By: Roby Thakkar on 09-11-2023 Hematocrit (Bld) [Volume fraction] 35.9 % 34.0-46.4 [facility] Hemoglobin [Mass/volume] in BloodOrdered By: Roby Thakkar on 09-11-2023 Hemoglobin (Bld) [Mass/Vol] 12.4 g/dL 11.8-15.4 [facility] Ketones Auto test strip (U) [Mass/Vol]Ordered By: Roby Thakkar on 09-11-2023 Ketones (U) [Mass/Vol] Negative Negative [facility] Leukocytes [#/volume] correc winnie for nucleated erythrocytes in Blood by Automated counOrdered By: Roby Thakkar on 09-11-2023 WBC corrected for nucl RBC Auto (Bld) [#/Vol] 4.4 10*3/uL 3.8-11.6 [facility] Lymphocytes Auto (Bld) [#/Vo l]Ordered By: Roby Thakkar on 09-11-2023 Lymphocytes (Bld) [#/Vol] 1.0 10*3/uL 1.00-4.8 [facility] Lymphocytes/100 WBC Auto (Bl d)Ordered By: Roby Thakkar on 09-11-2023 Lymphocytes/100 WBC (Bld) 22.7 % . [facility] MCH Auto (RBC) [Entitic mass ]Ordered By: Roby Thakkar on 09-11-2023 MCH (RBC) [Entitic mass] 34.1 pg 24.7-34.3 [facility] MCHC Auto (RBC) [Mass/Vol]Or dered By: Roby Thakkar on 09-11-2023 MCHC (RBC) [Mass/Vol] 34.4 g/dL 32.0-35.0 [facility] MCV Auto (RBC) [Entitic vol] Ordered By: Roby Thakkar on 09-11-2023 MCV (RBC) [Entitic vol] 99.1 fL 80-100 [facility] Magnesiumon 09-11-2023 Magnesium [Mass/Vol] 1.7 mg/dL Low 1.9-2.7 [facility] Comment on above: Performed By: #### M G, BMP, PRL, CBC #### [facility] [address] Magnesium [Mass/volume] in S tessie or PlasmaOrdered By: Roby Thakkar on 09-11-2023 Magnesium [Mass/Vol] 1.7 mg/dL 1.9-2.7 [facility] Monocyte distribution width [Entitic volume] in Blood by AutomatedOrdered By: Roby Thakkar on 09-11-2023 Monocyte distribution width Auto (Bld) [Entitic vol] 21.57 % 0.00-20.00 [facility] Comment on above: For adults in ED, MD W > 20.0 may be associated with a higher risk of sepsis during the first 12 hrs of hospital admission Monocytes Auto (Bld) [#/Vol] Ordered By: Roby Thakkar on 09-11-2023 Monocytes (Bld) [#/Vol] 0.3 10*3/uL 0.0-0.8 [facility] Monocytes/100 WBC Auto (Bld) Ordered By: Roby Thakkar on 09-11-2023 Monocytes/100 WBC (Bld) 7.3 % . [facility] Neutrophils Auto (Bld) [#/Vo l]Ordered By: Roby Thakkar on 09-11-2023 Neutrophils (Bld) [#/Vol] 3.1 10*3/uL 1.8-7.7 [facility] Neutrophils/100 WBC Auto (Bl d)Ordered By: Roby Thakkar on 09-11-2023 Neutrophils/100 WBC (Bld) 68.8 % . [facility] Nitrite Test strip Ql (U)Ord ered By: Roby Thakkar on 09-11-2023 Nitrite Ql (U) Negative Negative [facility] No Panel InformationOrdered By: Roby Thakkar on 09-11-2023 Estimated GFR (CKD-EPI) > 60.0 mL/Min [facility] Creatinine Clearance (Chem 96.07 [facility] Nucleated erythrocytes [Pres ence] in Blood by Automated countOrdered By: Roby Thakkar on 09-11-2023 Nucleated RBC Auto Ql (Bld) 0.1 /100{WBC} 0-0.5 [facility] Opiates [Presence] in Urine by Screen methodOrdered By: Roby Thakkar on 09-11-2023 Opiates Screen Ql (U) Negative Negative [facility] Phencyclidine Screen Ql (U)O rdered By: Roby Thakkar on 09-11-2023 Phencyclidine Ql (U) Negative Negative [facility] Platelet mean volume Auto (B ld) [Entitic vol]Ordered By: Roby Thakkar on 09-11-2023 Platelet mean volume (Bld) [Entitic vol] 8.2 fL 6.3-10.7 [facility] Platelets Auto (Bld) [#/Vol] Ordered By: Roby Thakkar on 09-11-2023 Platelets (Bld) [#/Vol] 149 10*3/uL 150-450 [facility] Potassium [Moles/volume] in Serum or PlasmaOrdered By: Roby Thakkar on 09-11-2023 Potassium [Moles/Vol] 4.1 mmol/L 3.5-5.1 [facility] Comment on above: Hemolysis is present at a level that could interfere with the result. Prolactinon 09-11-2023 Prolactin 10.97 ng/mL Normal 3.34-26.72 [facility] Comment on above: Result Comment: PERF ORMED BY: [place] [address] PATHOLOGIST [employer]WEATB[employer] PERFORATOR ZURDO DOMINGO M.D. Performed By: #### M G, BMP, PRL, CBC #### [address] Prolactin [Mass/volume] in S tessie or PlasmaOrdered By: Roby Thakkar on 09-11-2023 Prolactin [Mass/Vol] 10.97 ng/mL 3.34-26.72 [facility] Protein Auto test strip (U) [Mass/Vol]Ordered By: Roby Thakkar on 09-11-2023 Protein (U) [Mass/Vol] Negative Negative [facility] RBC Auto (Bld) [#/Vol]Ordere d By: Roby Thakkar on 09-11-2023 RBC (Bld) [#/Vol] 3.62 10*6/uL 3.60-5.00 [facility] Serum or plasma anion gap de terminationOrdered By: Roby Thakkar on 09-11-2023 Anion gap [Moles/Vol] 13.2 mmol/L 6.0-15.0 [facility] Sodium [Moles/volume] in Ser um or PlasmaOrdered By: Roby Thakkar on 09-11-2023 Sodium [Moles/Vol] 135 mmol/L 136-145 [facility] Specific gravity Auto test s trip (U) [Rel density]Ordered By: Roby Thakkar on 09-11-2023 Specific gravity (U) [Rel density] 1.005 1.001-1.03 0 [facility] Urea nitrogen [Mass/volume] in Serum or PlasmaOrdered By: Roby Thakkar on 09-11-2023 Urea nitrogen [Mass/Vol] 6 mg/dL 7-25 [facility] Urine Cultureon 09-11-2023 Bacteria identified Cx Nom (U) No Growth 2 Days PERFORMED BY: [place] [address] PATHOLOGIST S[employer] PERFORATOR ZURDO DOMINGO M.D. Normal [facility] Comment on above: Performed By: #### M G, CMP, CBC, PT #### [facility] [address] [place] [address] Urine bacteria detection by automated methodOrdered By: Roby Thakkar on 09-11-2023 Bacteria Auto Ql (U) 3+ None Seen [facility] Urine clarity by refractomet ry automatedOrdered By: Roby Thakkar on 09-11-2023 Clarity Refractometry automated (U) Cloudy Clear [facility] Urine culture routineOrdered By: Roby Thakkar on 09-11-2023 Bacteria identified Cx Nom (U) No Growth 2 Days [facility] Urine glucose measurement by automated test strip (mass/volume)Ordered By: Roby Thakkar on 09-11-2023 Glucose Auto test strip (U) [Mass/Vol] Normal mg/dL Normal [facility] Urine hemoglobin detection b y automated test stripOrdered By: Roby Thakkar on 09-11-2023 Hemoglobin Auto test strip Ql (U) Trace Negative [facility] Urine leukocyte esterase det ection by automated test stripOrdered By: Roby Thakkar on 09-11-2023 Leukocyte esterase Auto test strip Ql (U) 1+ Negative [facility] Urobilinogen Auto test strip (U) [Mass/Vol]Ordered By: Roby Thakkar on 09-11-2023 Urobilinogen (U) [Mass/Vol] Normal mg/dL Normal [facility] WBC Auto (Bld) [#/Vol]Ordere d By: Roby Thakkar on 09-11-2023 WBC (Bld) [#/Vol] 4.4 10*3/uL 3.8-11.6 [facility] pH Auto test strip (U)Ordere d By: Roby Thakkar on 09-11-2023 pH (U) 6.0 [pH] 5.0-9.0 [facility] Progress Noteson 06-11-2023 Production [employer]er[employer] Supervisor Authentication Interface Message Text EMERGENCY TRIAGE, TREAT AND TRANSPORT (ET3) DOCUMENTATION OF TELEHEALTH VISIT Date / Time: 06/11/2023599 Name: Karyn Ayala : 1990 SSN: (Not on file) EMS Agency: [facility] [x] Verbal consent obtained [] Implied [...] Encounter Completed by: Joe Diana, Normal [facility] [employer] CBC AUTO DIFFon 06-16-2021 BASO # 0.1 103/ul Normal 0.0-0.1 [facility] Comment on above: Performed By: #### C BC ####[facility] [address] [place], [place] [address]Qnvfxo Ori[place] Basophils/100 WBC (Bld) 0.5 % Normal 0.2-2.0 [facility] Comment on above: Performed By: #### C BC ####[facility] [address] [place], [place] [address]Topsni Oriana EO # 0.0 103/ul Normal 0.0-0.7 [facility] Comment on above: Performed By: #### C BC ####[facility] [address] [place], [place] [address]Jszzov Ori[place] Eosinophils/100 WBC (Bld) 0.2 % Critically low 0.9-7.0 [facility] Comment on above: Performed By: #### C BC ####[facility] [address] [place], [place] [address]Hpfbhz Ori[place] Erythrocyte distribution width (RBC) [Ratio] 12.4 % Normal 11.0-15.0 [facility] Comment on above: Performed By: #### C BC ####[facility] [address] [place] Hematocrit (Bld) [Volume fraction] 55.2 % Critically high 36.0-48.0 [facility] Comment on above: Performed By: #### C BC ####[facility] S[address] [place] Hemoglobin (Bld) [Mass/Vol] 18.3 g/dL Critically high 12.0-16.0 [facility] Comment on above: Performed By: #### C BC ####[facility] [address] [place] [address] Ori[place] IG # 0.06 10e3/ul Critically high 0.00-0.03 [facility] Comment on above: Performed By: #### C BC ####[facility] [address] [place] [address] [place] IG % 0.6 % Critically high 0.0-0.5 [facility] Comment on above: Performed By: #### C BC ####[facility] [address] [place] [address] [place] LYMPH # 1.9 103/ul Normal 1.2-3.8 [facility] Comment on above: Performed By: #### C BC ####[facility] [address] [place] [address] [place] Lymphocytes/100 WBC (Bld) 19.2 % Critically low 20.5-60.0 [facility] Comment on above: Performed By: #### C BC ####[facility] [address] [place] [address] [place] MANUAL DIFF REQ NO Normal [facility] [place] Comment on above: Performed By: #### C BC ####[facility] [address] [place] MCH (RBC) [Entitic mass] 29.5 pg Normal 26.7-34.0 [facility] Comment on above: Performed By: #### C BC ####[facility] [address] [place] [id number] Gastelum MCHC (RBC) [Mass/Vol] 33.2 g/dL Normal 29.9-35.2 [facility] Comment on above: Performed By: #### C BC ####[facility] [address] [place] [id number] Gastelum MCV (RBC) [Entitic vol] 89.0 fL Normal 81.0-99.0 [facility] Comment on above: Performed By: #### C BC ####[facility] [address] [place] [id number] Gastelum MONO # 0.4 103/ul Normal 0.3-0.8 [facility] Comment on above: Performed By: #### C BC ####[facility] [address] [place] [address]Jay Gastelum Monocytes/100 WBC (Bld) 3.8 % Normal 1.7-12.0 [facility] Comment on above: Performed By: #### C BC ####[facility] [address] [place], [place] [address]Jay Gastelum NEUT # 7.6 103/ul Critically high 1.4-6.5 [facility] Comment on above: Performed By: #### C BC ####[facility] [address] [place] [address]Jay Gastelum Neutrophils/100 WBC (Bld) 75.7 % Critically high 43.0-75.0 [facility] Comment on above: Performed By: #### C BC ####[facility] [address] [place] [id number] Gastelum Platelet mean volume (Bld) [Entitic vol] 8.8 fL Critically low 9.5-13.5 [facility] Comment on above: Performed By: #### C BC ####[facility] [address] [place] [address]Jay Gastelum PLT 438 103/ul Normal 150-450 [facility] Comment on above: Performed By: #### C BC ####[facility] [address] [place] [address]Gerken Ori[place] RBC 6.20 106/ul Critically high 4.20-5.40 [facility] Comment on above: Performed By: #### C BC ####[facility] [address] [place] [address]Gerken [place] WBC 10.1 103/ul Normal 4.0-11.0 [facility] Comment on above: Performed By: #### C BC ####[facility] [address] [place] [address]Gerken [place] DRUG SCREEN RAPID (URINE)on 06-16-2021 AMP Negative Normal NEGATIVE [facility] Comment on above: Performed By: #### P REGU, DRUGRPD #### [facility] [address] [place] [address] Jay [place] BAR Negative Normal NEGATIVE [facility] Comment on above: Performed By: #### P REGU, DRUGRPD #### [facility] [address] [place] [address] Jay [place] BUP Positive Abnormal NEGATIVE [facility] Comment on above: Performed By: #### P REGU, DRUGRPD #### [facility] [address] [place] [address] Jay [place] BZO Negative Normal NEGATIVE [facility] Comment on above: Performed By: #### P REGU, DRUGRPD #### [facility] [address] [place] [address] Jay [place] POLINA Negative Normal NEGATIVE [facility] Comment on above: Performed By: #### P REGU, DRUGRPD #### [facility] [address] [place] [address] Jay [place] CUT-OFFS SEE BELOW Normal [facility] Comment on above: Result Comment: AMP [...] Performed By: #### P REGU, DRUGRPD #### [facility] [address] [place] [address] DRUG CUT HEADER DRUG CLASS TEST SYST EM CUT-OFF CONCENTRATIONS ARE FOLLOWS: Normal [facility] Comment on above: Performed By: #### P REGU, DRUGRPD #### [facility] [address] [place] [address] mAMP Negative Normal NEGATIVE [facility] Comment on above: Performed By: #### P REGU, DRUGRPD #### [facility] [address] [place] [address] Jay [place] MTD Negative Normal NEGATIVE [facility] Comment on above: Performed By: #### P REGU, DRUGRPD #### [facility] [address] [place] [address] OPI Negative Normal NEGATIVE [facility] Comment on above: Performed By: #### P REGU, DRUGRPD #### [facility] [address] [place] [address] Jay [place] OXY Negative Normal NEGATIVE [facility] Comment on above: Performed By: #### P REGU, DRUGRPD #### [facility] [address] [place] [address] PCP Negative Normal NEGATIVE [facility] Comment on above: Performed By: #### P REGU, DRUGRPD #### [facility] [address] [place] [address] [facility] Normal NEGATIVE [facility] Comment on above: Performed By: #### P REGU, DRUGRPD #### [facility] [address] [place] [address] Jay [place] TCA Negative Normal NEGATIVE [facility] Comment on above: Performed By: #### P REGU, DRUGRPD #### [facility] [address] [place], [place] [id number] Jay [place] THC Negative Normal NEGATIVE [facility] Comment on above: Performed By: #### P REGU, DRUGRPD #### [facility] [address] [place], [place] [address] Jayevangelist Gastelum URon 06-16-2021 , QUAL Negative Normal NEGATIVE [facility] Comment on above: Performed By: #### P REGTulio DRUGRPD #### [facility] [address] [place] [id number] Jay Gastelum PROF CHEM 8 (BAS METB)on Anion gap [Moles/Vol] 20.1 mmol/L Normal [facility] Comment on above: Performed By: #### B MP #### [facility] [address] [place] [address] Jay [place] Calcium [Mass/Vol] 9.7 mg/dL Normal 8.4-10.2 [facility] Comment on above: Performed By: #### B MP #### [facility] [address] [place] [address] Jay [place] Chloride [Moles/Vol] 102 mmol/L Normal 98-107 [facility] Comment on above: Performed By: #### B MP #### [facility] [address] [place] [address] Jay Ori[place] CO2 [Moles/Vol] 21.7 mmol/L Critically low 22.0-30.0 [facility] Comment on above: Performed By: #### B MP #### [facility] [address] [place], [place] [id number] Jay [place] Creatinine [Mass/Vol] 1.03 mg/dL Normal 0.52-1.04 [facility] Comment on above: Performed By: #### B MP #### [facility] [address] [place] [id number] Jay [place] EGFR-AF ITALIAN >60 Normal >=60 [facility] Comment on above: Performed By: #### B MP #### [facility] [address] [place], [place] [address] Jay Ori[place] EGFR-NON AF ITALIAN >60 Normal >=60 [facility] Comment on above: Performed By: #### B MP #### [facility] [address] [place], [place] [address] Jay [place] Glucose [Mass/Vol] 112 mg/dL Critically high 74-106 [facility] Comment on above: Performed By: #### B MP #### [facility] [address] [place] [phone] Jay [place] Potassium [Moles/Vol] 3.8 mmol/L Normal 3.4-5.0 [facility] Comment on above: Performed By: #### B MP #### [facility] [address] [place] [id number] Jay [place] Sodium [Moles/Vol] 140 mmol/L Normal 137-145 [facility] Comment on above: Performed By: #### B MP #### [facility] [address] [place] [id number] Jay [place] Urea nitrogen [Mass/Vol] 6.0 mg/dL Critically low 7.0-17.0 [facility] Comment on above: Performed By: #### B MP #### [facility] [address] [place] [id number] Jay [place] Urea nitrogen/Creatinine [Mass ratio] 5.8 mg/mg Normal [facility] Comment on above: Performed By: #### B MP #### [facility] [address] [place] [id number] Jay [place] HEPATITIS PANEL, ACUTEon HBsAg Screen Negative Normal Negative [facility] Comment on above: Performed By: #### H EPACUT ####[facility] [address] [place] [id number] [place] Hep A Ab, IgM Negative Normal Negative [facility] Comment on above: Performed By: #### H EPACUT ####[facility] [address] [place] [id number] [place] Hep B Core Ab, IgM Negative Normal Negative [facility] Comment on above: Performed By: #### H EPACUT ####[facility] [address] [place] [address]Jay Gastelum Hep C Virus Ab <0.1 Normal 0.0-0.9 [facility] Comment on above: Result Comment: Nega tive: < 0.8 Indeterminate: 0.8 - 0.9 Positive: > 0.9 . The CDC recommends that a positive HCV antibody result be followed up with a HCV Nucleic Acid Amplification test (257236). Performed By: #### H EPACUT ####[facility] [address] [place] [address]Dania Gastelum XR FOOT SADE MIN 3 VIEWSon [...] NIESHA MORRIS Date: 2020-07-02 11:36 Normal [facility] CBC AUTO DIFFon 07-01-2020 BASO # 0.0 103/ul Normal 0.0-0.1 [facility] Comment on above: Performed By: #### C BC #### [facility] [address] [place] [address] Jay Gastelum Basophils/100 WBC (Bld) 0.4 % Normal 0.2-2.0 [facility] Comment on above: Performed By: #### C BC #### [facility] [address] [place] [address] Jay Ori[place] EO # 0.1 103/ul Normal 0.0-0.7 [facility] Comment on above: Performed By: #### C BC #### [facility] [address] [place], [place] [id number] Jay [place] Eosinophils/100 WBC (Bld) 0.7 % Critically low 0.9-7.0 [facility] Comment on above: Performed By: #### C BC #### [facility] [address] [place] [address] Jay [place] Erythrocyte distribution width (RBC) [Ratio] 13.2 % Normal 11.0-15.0 [facility] Comment on above: Performed By: #### C BC #### [facility] [address] [place] [address] Jay Ori[place] Hematocrit (Bld) [Volume fraction] 40.6 % Normal 36.0-48.0 [facility] Comment on above: Performed By: #### C BC #### [facility] [address] [place] [address] Jay [place] Hemoglobin (Bld) [Mass/Vol] 13.5 g/dL Normal 12.0-16.0 [facility] Comment on above: Performed By: #### C BC #### [facility] [address] [place] [address] Jay Ori[place] IG # 0.02 10e3/ul Normal 0.00-0.03 [facility] Comment on above: Performed By: #### C BC #### [facility] [address] [place] [address] Jay [place] IG % 0.2 % Normal 0.0-0.5 [facility] Comment on above: Performed By: #### C BC #### [facility] [address] [place] [address] Jay [place] LYMPH # 2.4 103/ul Normal 1.2-3.8 [facility] Comment on above: Performed By: #### C BC #### [facility] [address] [place], [place] [address] Jay [place] Lymphocytes/100 WBC (Bld) 22.2 % Normal 20.5-60.0 [facility] Comment on above: Performed By: #### C BC #### [facility] [address] [place] [address] Jay [place] MANUAL DIFF REQ NO Normal [facility] [place] Comment on above: Performed By: #### C BC #### [facility] [address] [place], [place] [phone] Jay [place] MCH (RBC) [Entitic mass] 31.3 pg Normal 26.7-34.0 [facility] Comment on above: Performed By: #### C BC #### [facility] [address] [place], [place] [phone] Jay [place] MCHC (RBC) [Mass/Vol] 33.3 g/dL Normal 29.9-35.2 [facility] Comment on above: Performed By: #### C BC #### [facility] [address] [place], [place] [phone] Jay [place] MCV (RBC) [Entitic vol] 94.2 fL Normal 81.0-99.0 [facility] Comment on above: Performed By: #### C BC #### [facility] [address] [place], [place] [phone] Jay [place] MONO # 0.9 103/ul Critically high 0.3-0.8 [facility] Comment on above: Performed By: #### C BC #### [facility] [address] [place], [place] [phone] Ajy Ori[place] Monocytes/100 WBC (Bld) 8.4 % Normal 1.7-12.0 [facility] Comment on above: Performed By: #### C BC #### [facility] [address] [place], [place] [phone] Jay [place] NEUT # 7.3 103/ul Critically high 1.4-6.5 [facility] Comment on above: Performed By: #### C BC #### [facility] [address] [place], [place] [phone] Jay Gastelum Neutrophils/100 WBC (Bld) 68.1 % Normal 43.0-75.0 [facility] Comment on above: Performed By: #### C BC #### [facility] [address] [place], [place] [phone] Jay Gastelum Platelet mean volume (Bld) [Entitic vol] 9.7 fL Normal 9.5-13.5 [facility] Comment on above: Performed By: #### C BC #### [facility] [address] [place], [place] [phone] Jayevangelist Ahumadaen PLT 231 103/ul Normal 150-450 [facility] Comment on above: Performed By: #### C BC #### [facility] [address] [place] [address] Jayevangelist Gastelum RBC 4.31 106/ul Normal 4.20-5.40 [facility] Comment on above: Performed By: #### C BC #### [facility] [address] [place] [address] Jay Gastelum WBC 10.8 103/ul Normal 4.0-11.0 [facility] Comment on above: Performed By: #### C BC #### [facility] [address] [place], [place] [phone] Jay Gastelum FREE THYROXINE INDEX T7on FTI 2.41 Normal [facility] Comment on above: Performed By: #### L IPID, T7, TSH, CMP #### [facility] [address] [place], [place] [id number] Jay Gastelum T3U 29.0 % Normal 23.5-40.5 [facility] Comment on above: Performed By: #### L IPID, T7, TSH, CMP #### [facility] [address] [place], [place] [id number] Jay Gastelum T4 [Mass/Vol] 8.30 ug/dL Normal 5.53-11.00 [facility] Comment on above: Performed By: #### L IPID, T7, TSH, CMP #### [facility] [address] [place], [place] [id number] Jay [place] GLYCOHEMOGLOBIN A1Con 2019 Glucose [Mass/Vol] 105 mg/dL Normal [facility] Comment on above: Performed By: #### A 1C #### [facility] [address] [place] [phone] Jay [place] HbA1c (Bld) [Mass fraction] 5.3 % Normal <=6.0 [facility] Comment on above: Performed By: #### A 1C #### [facility] [address] [place] [phone] Jay Ori[place] IRONon 07-01-2020 Iron [Mass/Vol] 65.0 ug/dL Normal 37.0-170.0 [facility] [place] Comment on above: Performed By: #### I CEZAR #### [facility] [address] [place] [address] Jay Ori[place] LIPID PROFILEon 07-01-2020 CHOL-HDL RATIO NORM SEE BELOW Normal [facility] Comment on above: Result Comment: 3.3 - 4.4 LOW RISK 4.4 - 7.1 AVERAGE RISK 7.1 - 11.0 MODERATE RISK >11.0 HIGH RISK Performed By: #### L IPID, T7, TSH, CMP #### [facility] [address] [place], [place] [id number] Jay [place] Cholesterol [Mass/Vol] 202 mg/dL Critically high <=200 [facility] Comment on above: Performed By: #### L IPID, T7, TSH, CMP #### [facility] [address] [place] [phone] Jay [place] Cholesterol in HDL [Mass/Vol] 39 mg/dL Normal [facility] Comment on above: Performed By: #### L IPID, T7, TSH, CMP #### [facility] [address] [place] [phone] Jay Ori[place] Cholesterol in LDL [Mass/Vol] 128.0 mg/dL Normal [facility] Comment on above: Performed By: #### L IPID, T7, TSH, CMP #### [facility] [address] [place] [phone] Jay Ori[place] Cholesterol.total/Chol esterol in HDL [Mass ratio] 5.2 {ratio} Normal [facility] Comment on above: Performed By: #### L IPID, T7, TSH, CMP #### [facility] [address] [place] [address] Jay Ori[place] HDL NORMAL > or = 60 mg/dl - LO W CARDIOVASCULAR RISK <40 mg/dl - HIGH CARDIOVASCULAR RISK Normal [facility] Comment on above: Performed By: #### L IPID, T7, TSH, CMP #### [facility] [address] [place] [address] Jay Ori[place] LDL CALC NORMAL SEE BELOW Normal [facility] [place] Comment on above: Result Comment: <100 mg/dl OPTIMAL 100 - 129 mg/dl NEAR OR ABOVE OPTIMAL 130 - 159 mg/dl BORDERLINE HIGH 160 - 189 mg/dl HIGH >190 mg/dl VERY HIGH Performed By: #### L IPID, T7, TSH, CMP #### [facility] [address] [place] [address] Jay Oriana Triglyceride [Mass/Vol] 175 mg/dL Critically high <=150 [facility] Comment on above: Performed By: #### L IPID, T7, TSH, CMP #### [facility] [address] [place] [address] Jay Oriana VLDL CALC 35.0 mg/dL Normal [facility] Comment on above: Performed By: #### L IPID, T7, TSH, CMP #### [facility] [address] [place] [address] Jay Gastelum PROF 14(COMP METB)on 020 Albumin [Mass/Vol] 3.8 g/dL Normal 3.5-5.0 [facility] Comment on above: Performed By: #### L IPID, T7, TSH, CMP #### [facility] [address] [place] [address] Jay Oriana Albumin/Globulin [Mass ratio] 1.0 {ratio} Normal [facility] Comment on above: Performed By: #### L IPID, T7, TSH, CMP #### [facility] [address] [place] [address] Jay Oriana ALP [Catalytic activity/Vol] 125 U/L Normal 38-126 [facility] Comment on above: Performed By: #### L IPID, T7, TSH, CMP #### [facility] [address] [place] [address] Jay Oriana ALT [Catalytic activity/Vol] 38 U/L Normal 9-52 [facility] Comment on above: Performed By: #### L IPID, T7, TSH, CMP #### [facility] [address] [place] [address] Jay Oriana Anion gap [Moles/Vol] 10.9 mmol/L Normal Th e [facility] Comment on above: Performed By: #### L IPID, T7, TSH, CMP #### [facility] [address] [place] [address] Jay Oriana AST [Catalytic activity/Vol] 27 U/L Normal 14-36 [facility] Comment on above: Performed By: #### L IPID, T7, TSH, CMP #### [facility] [address] [place] [address] Jay Oriana Bilirubin [Mass/Vol] 0.4 mg/dL Normal 0.2-1.3 [facility] Comment on above: Performed By: #### L IPID, T7, TSH, CMP #### [facility] [address] [place] [address] Jay Oriana Calcium [Mass/Vol] 9.6 mg/dL Normal 8.4-10.2 [facility] Comment on above: Performed By: #### L IPID, T7, TSH, CMP #### [facility] [address] [place] [address] Jay Oriana Chloride [Moles/Vol] 102 mmol/L Normal 98-107 [facility] Comment on above: Performed By: #### L IPID, T7, TSH, CMP #### [facility] [address] [place] [address] Jay Oriana CO2 [Moles/Vol] 29.8 mmol/L Normal 22.0-30.0 [facility] Comment on above: Performed By: #### L IPID, T7, TSH, CMP #### [facility] [address] [place], [place] [address] Jay Oriana Creatinine [Mass/Vol] 0.82 mg/dL Normal 0.52-1.04 [facility] Comment on above: Performed By: #### L IPID, T7, TSH, CMP #### [facility] [address] [place], [place] [address] Jay Oriana EGFR-AF ITALIAN >60 Normal >=60 [facility] Comment on above: Performed By: #### L IPID, T7, TSH, CMP #### [facility] [address] [place] [id number] Jay Oriana EGFR-NON AF ITALIAN >60 Normal >=60 [facility] Comment on above: Performed By: #### L IPID, T7, TSH, CMP #### [facility] [address] [place] [id number] Jay Oriana Globulin (S) [Mass/Vol] 3.7 g/dL Normal [facility] Comment on above: Performed By: #### L IPID, T7, TSH, CMP #### [facility] [address] [place] [id number] Jay Oriana Glucose [Mass/Vol] 97 mg/dL Normal 74-106 [facility] Comment on above: Performed By: #### L IPID, T7, TSH, CMP #### [facility] [address] [place] [id number] Jay Oriana Potassium [Moles/Vol] 3.7 mmol/L Normal 3.4-5.0 [facility] Comment on above: Performed By: #### L IPID, T7, TSH, CMP #### [facility] [address] [id number] Jay Oriana Protein [Mass/Vol] 7.5 g/dL Normal 6.1-8.2 [facility] Comment on above: Performed By: #### L IPID, T7, TSH, CMP #### [facility] [address] [id number] Jay Oriana Sodium [Moles/Vol] 139 mmol/L Normal 137-145 [facility] Comment on above: Performed By: #### L IPID, T7, TSH, CMP #### [facility] [address] [place] [address] Jay Gastelum Urea nitrogen [Mass/Vol] 4.0 mg/dL Critically low 7.0-17.0 [facility] Comment on above: Performed By: #### L IPID, T7, TSH, CMP #### [facility] [address] [place] [id number] Jay Gastelum Urea nitrogen/Creatinine [Mass ratio] 4.9 mg/mg Normal [facility] Comment on above: Performed By: #### L IPID, T7, TSH, CMP #### [facility] [address] [place] [address] Jay Gastelum TSHon 07-01-2020 TSH 2.215 uIU/mL Normal 0.470-4.68 0 [facility] Comment on above: Performed By: #### L IPID, T7, TSH, CMP ####[facility] [id number] [place] [id number] Gastelum TSH RANGE SEE BELOW Normal [facility] Comment on above: Result Comment: <0.3 4 UIU/ml HYPERTHYROID 0.34-5.60 UIU/ml EUTHYROID >5.60 UIU/ml HYPOTHYROID Performed By: #### L IPID, T7, TSH, CMP ####[facility] [address] [place] [id number] Gastelum CNOVon 06-12-2019 CNOV Office Visit (NELEIGHMN ) -- KARYN ESTES ([id number]) 1990 F Date Time Provider Department 06/12/19 9:45 AM BESSY SHERIFF) NENMMN During your visit today, we recorded the following information about you: Pulse Respiration Blood pressure Weight 126/minute 18/minute 110/74 50.3 kg Height 1.676 m Christel Larose MD, PhD 06/26/2019 1:28 AM Signed [facility] Consult Visit Note Referring provider AND PCP - Carl Child MD [address] [place] [address]Douglas Child for an [...] she was then sent to an OSH ([place]) as she could barely walk at all [...] Dr Child who sent her to a [facility] where she was given hydration and [...] file Gets together: Not on file Attends jain service: Not on file Active member of [...] on file Social History Narrative Worked at [employer] ([employer]) but stopped working after this last episode [...] patient's outside hospital records were reviewed in [facility] and pertinent workup and findings are noted [...] workup was done at the time (in [place]) and CSF and MRI brain/C/L spine w/wo [...] will be communicated to the patient via telephone/[employer]. Patient to call office if not contacted after expected testing turnaround time. To aid with communication, patients (and primary care physicians) can sign up for [employer] (or Tout), which allows online appointment scheduling, transmission of labs results and chart notes, and secure email communication. To establish either account, visit [email or web address]. Bessy Sheriff MD Fellow, Neuromuscular Medicine In the service of Christel Larose MD, PhD [facility] STAFF PHYSICIAN NOTE OF PERSONAL INVOLVEMENT IN [...] Larose spent at least 50% of the musj-cb-xjsd time in counseling, explanation of diagnosis, planning of further management, and answering all questions. Christel Larose MD, PhD Director, Section of ALS and Related Disorders Staff, [facility] [place] Bessy Sheriff MD, MD 06/12/2019 1:25 PM [...] [R20.2] Order(s):VITAMIN B12 BLOOD [SQB12] Order #: [id number]. #:[id number] HGB A1C [PVUSM9M] Order #: [id number]. #:[id number] PROTEIN ELECTROPHORESIS W/INTERP [SQSEPG] Order #: [id number]. #:[id number] METHYLMALONIC ACID [SQMMA] Order #: [id number]. #:[id number] EMG(NEURO/NI) [20110129] Order #: [id number]: 1 IMMUNOFIXATION SCREEN, SERUM [SQIFESC] Order #: [id number] Prescriptions as of 06/12/2019 Sig: POTASSIUM CHLORIDE [...] by CHRISTEL LAROSE MD on 06/26/19 Normal [facility] Hemoglobin A1con 06-12-2019 HbA1c (Bld) [Mass fraction] 4.6 % Normal 4.3-5.6 [facility] Comment on above: Result Comment: Amer ican Diabetes Association guidelines indicate that patients with HgbA1c in the range 5.7-6.4% are at increased risk for development of diabetes, and intervention by lifestyle modification may be beneficial. HgbA1c greater or equal to 6.5% is considered diagnostic of diabetes. Performed By: #### C BCDIF, CMP #### [facility] [address], [place] [id number] HbA1c (Bld) [Mass fraction] 85 mg/dL Normal [facility] Comment on above: Result Comment: eAG: (Estimated average glucose) is a calculated value from HgbA1c and is printing supplies sales representative of the average blood glucose level in the last 2-3 month period. Performed By: #### C BCDIF, CMP #### [facility] [employer] [address] [place], [place] [address] Methylmalonic Acidon 019 Methylmalonic Acid 175 nmol/L Normal 79-376 [facility] Comment on above: Result Comment: This test was developed and its performance characteristics determined by [facility]'s [facility] [place] ([facility]). It has not been cleared or approved by the FDA. [facility] is regulated under CLIA as qualified to perform high complexity testing. This test is used for clinical purposes. It should not be regarded as investigational or for research. Performed By: #### C BCDIF, CMP #### [facility] [address] [place], [place] [address] PROGRESSon 06-12-2019 PROGRESS HNO ID: [id number] Author: Christel Larose Service: ? Author Type: Physician Type: Progress Notes Filed: 06/26/2019 1:28 AM Note Text: [facility] Consult Visit Note Referring provider AND PCP - Carl Child MD [employer] [place] [address]Douglas Child for an [...] Dr Child who sent her to a [facility] where she was given hydration and [...] file Gets together: Not on file Attends jain service: Not on file Active member of [...] on file Social History Narrative Worked at [employer] ([employer]) but stopped working after this last episode [...] patient's outside hospital records were reviewed in [facility] and pertinent workup and findings are noted [...] workup was done at the time (in [place]) and CSF and MRI brain/C/L spine w/wo [...] will be communicated to the patient via telephone/[employer]. Patient to call office if not contacted after expected testing turnaround time. To aid with communication, patients (and primary care physicians) can sign up for [employer] (or Tout), which allows online appointment scheduling, transmission of labs results and chart notes, and secure email communication. To establish either account, visit [email or web address]. Bessy Sheriff MD Fellow, Neuromuscular Medicine In the service of Christel Larose MD, PhD [facility] STAFF PHYSICIAN NOTE OF PERSONAL INVOLVEMENT IN [...] Larose spent at least 50% of the huik-rd-yrvs time in counseling, explanation of diagnosis, planning of further management, and answering all questions. Christel Larose MD, PhD Director, Section of ALS and Related Disorders Staff, [facility] Center [facility] [place] Normal [facility] Protein Electrophor.on 06-12 Albumin [Mass/Vol] 4.10 g/dL Normal 3.37-4.23 [facility] Comment on above: Performed By: #### C BCDIF, CMP #### [facility] [address] [place] [address] Alpha 1 Globulin 0.26 gm/dL Normal 0.18-0.31 [facility] Comment on above: Performed By: #### C BCDIF, CMP #### [facility] [address] [place], [place] [address] Alpha 2 Globulin 0.96 gm/dL Normal 0.52-0.97 [facility] Comment on above: Performed By: #### C BCDIF, CMP #### [facility] [address] [place], [place] [address] Beta Globulin 1.18 gm/dL Normal 0.84-1.36 [facility] Comment on above: Performed By: #### C BCDIF, CMP #### [facility] [address] [place], [place] [address] Gamma Globulin 1.50 gm/dL High 0.70-1.44 [facility] Comment on above: Performed By: #### C BCDIF, CMP #### [place] [address] [place] [id number] Interpretation SEE COMMENT Normal [facility] Comment on above: Result Comment: No d efinitive M protein is identified on protein electrophoresis. Performed By: #### C BCDIF, CMP #### [place] [address] [place] [id number] M Hernesto Concentratn 0.00 gm/dL Normal 0.00 [facility] Comment on above: Performed By: #### C BCDIF, CMP #### [place] [id number] Protein [Mass/Vol] N/A Normal [facility] Comment on above: Performed By: #### C BCDIF, CMP #### [place] [id number] Protein [Mass/Vol] 8.0 g/dL Normal 6.0-8.4 [facility] Comment on above: Performed By: #### C BCDIF, CMP #### [place] [id number] [facility] Staff Review Reviewed by Casey Rebolledo MD ([id number]) Normal [facility] Comment on above: Performed By: #### C BCDIF, CMP #### [place] [address] Vitamin B12on 06-12-2019 Cobalamin (Vitamin B12) [Mass/Vol] 631 pg/mL Normal 232-1245 [facility] Comment on above: Performed By: #### C BCDIF, CMP #### [address] [address] CASE MANAGEMon 05-11-2019 CASE MANAGEM HNO ID: [id number] Author: Margot Briscoe (Sw) Service: Care Management Author Type: Shaping Machine Tender Type: Care Mgt Progress Note Filed: 05/11/2019 2:11 PM Note Text: CARE MANAGEMENT DISCHARGE NOTE SERVICE DATE: 05/11/2019 SERVICE TIME: 2:08 PM LOS: 3 days Admission Date: 05/08/2019 DISCHARGE ARRANGEMENT (list agency and phone number) long-term facility: Was an expedited discharge program used? [...] Transportation Agency and Phone #: Oren Schilling [phone]. Date of Trip: 05/11/19 Type of Service: BLS Non-emergency Is Patient Medicaid Pending: Yes and [place] medicaid Discussion of financial coverage occurred with Patient . Senior Hr Generalist Location: Destination: Financial Care Management Responsibility: Estimated Charge: Approving Dairy Feed Sales Consultant: ADDITIONAL CONTACT RESOURCES: Patient tells me she is agreeable with discharge plan to go to SNF SIGNATURE: DOMINGUEZ Corrales PATIENT NAME: Karyn Estes DATE: May 11, 2019 TIME: 2:07 PM PAGER/CONTACT #: [phone] [facility] CONSULT PROGon 05-11-2019 CONSULT PROG HNO ID: [id number] Author: Jamie Guardado Service: Psychiatry Author Type: [...] Suboxone. ? ? Jamie Guardado MD ? [facility] CONSULT PROGon 05-10-2019 CONSULT PROG HNO ID: [id number] Author: Jamie Guardado Service: Psychiatry Author Type: [...] taking Suboxone. ? ? Jamie Guardado MD [facility] CONSULT PROG HNO ID: [id number] Author: Casey Cheung Service: Neurology General Author [...] be available as needed. Casey Cheung MD [facility] NURSING PROGon 05-10-2019 NURSING PROG HNO ID: [id number] Author: Caron GallegosRnSahara Carmen RN Service: Nursing Author Type: Registered Nurse Type: Nursing Progress Note Filed: 05/10/2019 8:40 AM Note Text: Nursing Progress Note Patient Name: Karyn Estes [facility] Daily Note: Heavy two person assist to bedside commode, patient unsteady during transfer to bedside commode. Bath given patient then heavy two person transfer to chair, patient assisted with ordering breakfast. This note was completed by: Caron Carmen RN [facility] PROGRESSon 05-10-2019 PROGRESS HNO ID: [id number] Author: Perla Whelan Service: Hospital Medicine Author Type: Physician Type: Progress Notes Filed: 05/10/2019 3:46 PM Note Text: SERVICE DATE: 05/10/2019 SERVICE TIME: 3:45 PM HOSPITAL MEDICINE PROGRESS NOTE NIGHT AND WEEKEND COVERAGE: Days: [phone], please page me for patient issues. Nights: [phone], please page [facility] Hospitalist Night coverage pager [phone] HPI 29 years old who presented to [...] VTE Prophylaxis/Anticoagulants 05/08/19 0145 pneumatic compression stockings (nh,ks) VTE Prophylaxis: VTE prophylaxis appropriate Plan of care discussed with: Patient, Care Management and RN SIGNATURE: Perla Whelan DO PATIENT NAME: Karyn Estes DATE: May 10, 2019 TIME: 3:45 PM PAGER/CONTACT #: [phone] [facility] THERAPY NTon 05-10-2019 [facility]: [id number] Author: Shaina Miller/L) Kristie Service: Occupational Therapy Author Type: Occupational Therapist Type: Therapy (PT/OT/Speech/Resp) Filed: 05/10/2019 11:11 AM Note Text: Occupational Therapy Evaluation SERVICE DATE: 05/10/2019 SERVICE TIME: 954 to 1044 ROOM: [place] [address] Recommended Discharge Disposition: Acute Rehab Justification For [...] 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 Today, pt very ataxic and uncoordinated with [...] signs-other;Lack of coordination-other Interventions Provided: Evaluation;Therapeutic Activity (47822) $ Evaluation-Moderate (69007) Billed Units: 1 unit Therapeutic Activity (31142) Treatment Minutes: 25 2 units Skilled Intervention(s): [...] phone within patients reach. Pt. Verbalized understanding. Director Compensation Strength: Right: 17# Left: 16# Pinch Strength: [...] DATE: May 10, 2019 TIME: 11:01 AM [facility] 05-09-2019 ALLIED HEALTH HNO ID: [id number] Author: Yves Best (Rt) Service: ? Author Type: Silk Spotter Type: Allied Health Filed: 05/08/2019 11:00 PM [...] Lisa Fide May 08, 2019 10:44 PM [facility] CASE MANAGEMon 05-09-2019 CASE MANAGEM HNO ID: [id number] Author: Margot Briscoe (Sw) Service: Care Management Author Type: Shaping Machine Tender Type: Care Mgt Progress Note Filed: 05/09/2019 2:59 PM Note Text: CARE MANAGEMENT PROGRESS NOTE SERVICE DATE: 05/09/2019 SERVICE TIME: 2:58 PM LOS: 1 day FREEDOM OF CHOICE GIVEN: Yes Karyn estes Financial Disclosure Provided The patient and/or family has been given the Provider List: Yes Provider List: Intermediate Facility Ms. Estes tells me she is agreeable with discharge plan to SNF for short term rehab stay. Preference is a facility in [facility] with her insurance closer to her home in [facility] SIGNATURE: DOMINGUEZ Corrales PATIENT NAME: Karyn Estes DATE: May 09, 2019 TIME: 2:58 PM PAGER/CONTACT #: [phone] [facility] CASE MANAGEM HNO ID: [id number] Author: Margot Briscoe (Sw) Service: Care Management Author Type: Shaping Machine Tender Type: Care Mgt Progress Note Filed: 05/09/2019 [...] Yes - Do you ever drink an eye-bale opener in the morning to relieve shakes? Yes-has in the past Met with Ms. Estes this date. She tells me she believes she has a substance abuse problem. Initially she declined community resources available to her in her area of [facility]. However after discussing [facility] assessment she stated she would consider an out patient program, but is undecided at this time. Stated she has gone to [place] for treatment in the past and would [...] very supportive family. Informed patient that the neonatal social worker remains available. She also tells me she will consider treatment and is aware of the [employer] phone number on the back of her card to contact for further available services under her [employer] insurance as needed. Community resources for substance abuse provided to patient. SIGNATURE: DOMINGUEZ Corrales PATIENT NAME: Karyn Estes DATE: May 09, 2019 TIME: 11:05 AM PAGER/CONTACT #: [phone] [facility] CONSULT PROGon 05-09-2019 CONSULT PROG HNO ID: [id number] Author: Jamie Guardado Service: Psychiatry Author Type: Physician Type: Consult Progress Note Filed: 05/09/2019 2:39 PM Note Text: PSYCHIATRY CONSULT SERVICE PROGRESS NOTE PATIENT NAME: Karyn Estes SERVICE DATE: May 09, 2019 SUBJECTIVE: Ms. Estes said she feels foggy today. She said she is overwhelmed with all that is going on. She talks about concerns about how things will glove turner and former. She could tell me the days of [...] with her. ? Jamie Guardado MD Normal [facility] Comp Metabolic Panelon 05-09 Albumin [Mass/Vol] 3.5 g/dL Low 3.9-4.9 [facility] ALP [Catalytic activity/Vol] 102 U/L Normal 34-123 [facility] ALT [Catalytic activity/Vol] 27 U/L Normal 7-38 [facility] Anion gap [Moles/Vol] 16 mmol/L Normal 9-18 [facility] AST [Catalytic activity/Vol] 53 U/L High 13-35 [facility] Bilirubin [Mass/Vol] 0.4 mg/dL Normal 0.2-1.3 [facility] Calcium [Mass/Vol] 9.5 mg/dL Normal 8.5-10.2 [facility] Chloride [Moles/Vol] 104 mmol/L Normal 97-105 [facility] CO2 [Moles/Vol] 21 mmol/L Low 22-30 [facility] Creatinine [Mass/Vol] 0.50 mg/dL Low 0.58-0.96 [facility] eGFR- Amer. >60 Normal [facility] GFR/1.73 sq M predicted among non-blacks MDRD (S/P/Bld) [Vol rate/Area] mL/min/{1.73_m2} Normal [facility] Comment on above: Result Comment: eGFR [...] GFR. Glucose [Mass/Vol] 76 mg/dL Normal 74-99 [facility] Comment on above: Result Comment: The [place] Diabetes Association (ADA) provides guidance for cutoff [...] Standards of Medical Care in Diabetes 2016, [place] Diabetes Association. Diabetes Care. 2016.39(Suppl 1). Potassium [Moles/Vol] 3.8 mmol/L Normal 3.7-5.1 [facility] Protein [Mass/Vol] 6.4 g/dL Normal 6.3-8.0 [facility] Sodium [Moles/Vol] 141 mmol/L Normal 136-144 [facility] Urea nitrogen [Mass/Vol] 4 mg/dL Low 7-21 [facility] MRI BRAIN WO/W IVCONon 05-09 MRI BRAIN WO/W IVCON * * *Final Report* * * DATE OF EXAM: May 08 2019 11:05PM [facility] 0295 - MRI BRAIN WO/W IVCON / [...] appearance of the thalami and medullary bodies. Bathroom Tiling Professional: TAIWO Transcribe Date/Time: May 08 2019 11:29P Dictated by : VALENTINA MCGRATH MD This examination was interpreted and the report reviewed and electronically signed by: VALENTINA MCGRATH MD on May 08 2019 11:32PM EST [id number] Normal [facility] Magnesiumon 05-09-2019 Magnesium [Mass/Vol] 1.8 mg/dL Normal 1.7-2.3 [facility] PLAN OF CAREon 05-09-2019 PLAN OF CARE HNO ID: [id number] Author: Margot Briscoe (Sw) Service: Care Management Author Type: Shaping Machine Tender Type: Plan of Care Filed: 05/09/2019 9:51 AM Note Text: MULTIDISCIPLINARY ROUNDS SERVICE DATE: 05/09/2019 ADMISSION DATE: 05/08/2019 SERVICE TIME: 9:49 AM ANTICIPATED D/C DATE: Problem List: ACTIVE PROBLEM LIST Weakness Malnutrition of Moderate Degree (Hcc) Paresthesias Alcohol Abuse Anxiety Attendees Present at Rounds: Nurse Dairy Feed Sales Consultant/Sheet Heater Helper Nurse Dairy Feed Sales Consultant: Shaping Machine Tender: Staff Nurse: Needs Discussed on Rounds: Mobility [...] May 09, 2019 TIME: 9:49 AM CSN: [id number] [facility] PROGRESSon 05-09-2019 PROGRESS HNO ID: [id number] Author: Perla Whelan Service: Hospital Medicine Author Type: Physician Type: Progress Notes Filed: 05/09/2019 3:31 PM Note Text: SERVICE DATE: 05/09/2019 SERVICE TIME: 3:29 PM HOSPITAL MEDICINE PROGRESS NOTE NIGHT AND WEEKEND COVERAGE: Days: [phone], please page me for patient issues. Nights: [phone], please page [facility] Hospitalist Night coverage pager [phone] HPI 29 years old who presented to [...] 09, 2019 TIME: 3:29 PM PAGER/CONTACT #: [phone] [facility] PROGRESS HNO ID: [id number] Author: Perla Whelan Service: Hospital Medicine Author [...] DATE: 05/09/2019 TIME: 10:09 AM PAGER #: [phone] [facility] THERAPY NT 05-09-2019 THERAPY NT HNO ID: [id number] Author: Aury (Pt) Orlin Service: Physical Therapy Author Type: Physical Therapist Type: Therapy (PT/OT/Speech/Resp) Filed: 05/09/2019 2:57 PM Note Text: Physical Therapy Evaluation SERVICE DATE: 05/09/2019 SERVICE TIME: 1317 to 1403 ROOM: [place] [address] Recommended Discharge Disposition: Acute Rehab Recommended Discharge [...] Patient TREATMENT INTERVENTIONS: Interventions Provided: Evaluation;Therapeutic Exercise (19264);Gait Training (34895) $ Evaluation-Moderate (12582) Billed Units: 1 unit Therapeutic Exercise (27834) Treatment Minutes: 20 1 unit Skilled Intervention(s): [...] - emphasis on trying to make complete shinnecock ( has eversion weakness) Quadricep Sets Gluteal [...] to reduce ataxia/deviation of movement Gait Training (16498) Treatment Minutes: 10 1 unit Skilled Intervention(s): [...] DATE: May 09, 2019 TIME: 2:37 PM [facility] Blood Cultureon 05-08-2019 Bacteria identified Cx Nom (Bld) Sp. Request/Comment: - The blood culture bottles are underfilled. Adding volume lower or higher than the 8 to 10 mL per bottle, which is the manufacturers recommended volume, may adversely affect the recovery and/or detection of organisms. 6.0CC Culture Result - No growth 5 days Normal [facility] Comment on above: Performed By: #### C BCDIF, CMP #### [facility] [address] [place], [place] [address] CASE MGT INIT ASSESon 2018 CASE MGT INIT [facility] HNO ID: [id number] Author: Georgette Hernandez (Miguelina) Neelima Service: Social Work Author Type: Shaping Machine Tender Type: Care Mgt Initial Assessment Filed: 05/08/2019 1:38 PM Note Text: CARE MANAGEMENT: ASSESSMENT AND DISCHARGE PLAN SERVICE DATE: 05/08/2019 SERVICE TIME: 1:28 PM PRIMARY CARE PHYSICIAN: Carl Child MD ADMISSION STATUS: Inpatient Needs Prior to Discharge: To Be Determined MEDICAL: Patient/Plate Former Stated Goals: To have reduction in symptoms To improve my functional status To return home to life as it was Health Insurance: [facility] MEDICAID . Health Issues Impacting Discharge Plan: Newly diagnosed Dizziness Weakness and tingling in lower extremeties Last Admission Date: none Is this Within the Past 30 days? 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 No [...] 0 I feel financially burdened by my top-rr-foznfi expenses for my prescription medication: Disagree mostly [...] is a 29 yo female admitted to [facility] from [facility] ED. Pt lives with her boyfriend and her two children (Ages 11 yo and 9 yo). Pt states her boyfriend is watching them while she is in the hospital. She lives in [facility] and usually follows with a PCP in [facility]. She stated she went to [facility] to try to get answers [...] 08, 2019 TIME: 1:28 PM PAGER/CONTACT #: [phone] Normal [facility] CBCon 05-08-2019 Absolute nRBC <0.01 Normal <0.01 [facility] Comment on above: Performed By: #### V ITD #### [facility] [place] [address] Erythrocyte distribution width (RBC) [Ratio] 13.3 % Normal 11.5-15.0 [facility] Comment on above: Performed By: #### V ITD #### [place] [address] Hematocrit (Bld) [Volume fraction] 35.3 % Low 36.0-46.0 [facility] Comment on above: Performed By: #### V ITD #### [place] [address] Hemoglobin (Bld) [Mass/Vol] 12.0 g/dL Normal 11.5-15.5 [facility] Comment on above: Performed By: #### V ITD #### [place] [address] MCH (RBC) [Entitic mass] 38.5 pG High 26.0-34.0 [facility] Comment on above: Performed By: #### V ITD #### [address] [address] MCHC (RBC) [Mass/Vol] 34.0 g/dL Normal 30.5-36.0 [facility] Comment on above: Performed By: #### V ITD #### [facility] [address] [place] [address] MCV (RBC) [Entitic vol] 113.1 fL High 80.0-100.0 [facility] Comment on above: Performed By: #### V ITD #### [facility] [address] [place] [address] Platelet mean volume (Bld) [Entitic vol] 9.6 fL Normal 9.0-12.7 [facility] Comment on above: Performed By: #### V ITD #### [facility] [address] [place] [phone] Platelets (Bld) [#/Vol] 202 10*3/uL Normal 150-400 [facility] Comment on above: Performed By: #### V ITD #### [facility] [address] [place] [address] RBC (Bld) [#/Vol] 3.12 10*6/uL Low 3.90-5.20 [facility] Comment on above: Performed By: #### V ITD #### [facility] [place] [phone] WBC (Bld) [#/Vol] 5.32 10*3/uL Normal 3.70-11.00 [facility] Comment on above: Performed By: #### V ITD #### [facility] [place] [phone] CONSULTon 05-08-2019 CONSULT HNO ID: [id number] Author: Jamie Guardado Service: Psychiatry Author Type: Physician Type: Consults Filed: 05/08/2019 2:57 PM Note Text: PSYCHIATRY INITIAL CONSULTATION NOTE NAME: Karyn Estes SERVICE DATE: May 08, 2019 Consulting Service: Hospital Medicine REASON FOR CONSULTATION: Anxiety, possible conversion disorder. Identifying Information: Ms. Estes is a 29 year old female from [place], [place]. HPI: She was admitted to the hospital for weakness. She said her legs started to give out of her a couple of days ago. She said there is nothing she can put her finger on as to why this should be happening. She said she was tripping on things and having trouble walking. She said she came to [place] rather then stay closer to home to [...] HISTORY: Childhood: Said she was raised in [place] as the youngest of 4 children. She denied any abuse as a child. She went to [employer] and graduated in 2005. She then went to work at the [employer]. Relationships: single, never , she has a boyfriend, Neptali, 24 years old, for the last year. Children: Yes, (2) minors - does have custody, 10 and 8 years old. 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 Current supports: spouse/partner Legal history: INCARCERATIONS: for few months in the past for possession of heroin Rastafari affiliation(s): None Abuse history: She denied a [...] 05/07/2019 7.0 4.5 - 8.0 Final Specific [place], Ur Date Value Ref Range Status 05/07/2019 [...] said she does not currently work an [employer] program. 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 She denied any psychotic issues or history of psychotic issues or Bipolar Disorder. C. Diagnostic tests recommended: None D. Psychiatry will follow with you. Would ask case management to discuss treatment options with her. SIGNATURE: Jamie Guardado MD PATIENT NAME: Karyn Estes DATE: May 08, 2019 TIME: 1:44 PM Normal [facility] CONSULT HNO ID: [id number] Author: Casey Cheung Service: Neurology General Author [...] fasciculations. There were no involuntary movements. Coordination: Sghsra-jini-mnmkel testing finds her mis-targeting about an inch [...] Casey Cheung MD Staff, General Neurology Normal [facility] Comp Metabolic Panelon 05-08 Albumin [Mass/Vol] 3.2 g/dL Low 3.9-4.9 [facility] Comment on above: Performed By: #### V ITD #### [facility] [address] [place], [place] [address] ALP [Catalytic activity/Vol] 95 U/L Normal 34-123 [facility] Comment on above: Performed By: #### V ITD #### [facility] [address] [place], [place] [address] ALT [Catalytic activity/Vol] 24 U/L Normal 7-38 [facility] Comment on above: Performed By: #### V ITD #### [facility] [address] [place], [place] [address] Anion gap [Moles/Vol] 13 mmol/L Normal 9-18 [facility] Comment on above: Performed By: #### V ITD #### [place] [address] [place] [phone] AST [Catalytic activity/Vol] 47 U/L High 13-35 [facility] Comment on above: Performed By: #### V ITD #### [place] [address] Bilirubin [Mass/Vol] 0.4 mg/dL Normal 0.2-1.3 [facility] Comment on above: Performed By: #### V ITD #### [place] [address] Calcium [Mass/Vol] 8.8 mg/dL Normal 8.5-10.2 [facility] Comment on above: Performed By: #### V ITD #### [place] [address] Chloride [Moles/Vol] 103 mmol/L Normal 97-105 [facility] Comment on above: Performed By: #### V ITD #### [place] [phone] CO2 [Moles/Vol] 22 mmol/L Normal 22-30 [facility] Comment on above: Performed By: #### V ITD #### [address] [address] Creatinine [Mass/Vol] 0.46 mg/dL Low 0.58-0.96 [facility] Comment on above: Performed By: #### V ITD #### [facility] [place] [phone] eGFR- Amer. >60 Normal [facility] Comment on above: Performed By: #### V ITD #### [facility] [place], [place] [address] GFR/1.73 sq M predicted among non-blacks MDRD (S/P/Bld) [Vol rate/Area] mL/min/{1.73_m2} Normal [facility] Comment on above: Result Comment: eGFR [...] GFR. Performed By: #### V ITD #### [facility] [address] [place], [place] [address] Glucose [Mass/Vol] 90 mg/dL Normal 74-99 [facility] Comment on above: Result Comment: The [place] Diabetes Association (ADA) provides guidance for cutoff [...] Standards of Medical Care in Diabetes 2016, [place] Diabetes Association. Diabetes Care. 2016.39(Suppl 1). Performed By: #### V ITD #### [facility] [address] [place], [place] [address] Potassium [Moles/Vol] 3.3 mmol/L Low 3.7-5.1 [facility] Comment on above: Performed By: #### V ITD #### [facility] [address] [place], [place] [address] Protein [Mass/Vol] 5.8 g/dL Low 6.3-8.0 [facility] Comment on above: Performed By: #### V ITD #### [facility] [address] [place], [place] [phone] Sodium [Moles/Vol] 138 mmol/L Normal 136-144 [facility] Comment on above: Performed By: #### V ITD #### [facility] [address] [place], [place] [phone] Urea nitrogen [Mass/Vol] 4 mg/dL Low 7-21 [facility] Comment on above: Performed By: #### V ITD #### [facility] [address], [place] [address] ED NOTEon 05-08-2019 ED NOTE HNO ID: [id number] Author: Leonor GallegosRn) KELECHI Recinos Service: Emergency Medicine Author Type: Registered Nurse Type: ED Notes Filed: 05/08/2019 12:34 AM Note Text: Report called and given to KELECHI Fitch Normal [facility] ED NOTE HNO ID: [id number] Author: Yves Lopez (Ct) Service: Emergency Medicine Author Type: Clinical Silk Spotter Type: ED Notes Filed: 05/08/2019 12:22 AM Note Text: Transport arrived Normal [facility] ED NOTE HNO ID: [id number] Author: Claudia GallegosRn) KELECHI Segura Service: Emergency Medicine Author Type: Registered Nurse Type: ED Notes Filed: 05/07/2019 11:24 PM Note Text: Patient placed on bedpan. Urine yellow in color. Obtained and sent. No dysuria/hematuria. Normal [facility] ED NOTE HNO ID: [id number] Author: Yves Lopez (Ct) Service: Emergency Medicine Author Type: Clinical Silk Spotter Type: ED Notes Filed: 05/07/2019 10:43 PM Note Text: Pt given ice water. Will check back for urine. Normal [facility] ED NOTE HNO ID: [id number] Author: Yves Lopez (Ct) Service: Emergency Medicine Author Type: Clinical Silk Spotter Type: ED Notes Filed: 05/07/2019 10:35 PM Note Text: 2nd set of cultures obtained and sent. Normal [facility] HISTORY PHYSICALon 9 HISTORY PHYSICAL HNO ID: [id number] Author: Lula Frank Service: Hospital Medicine Author [...] year she was admitted to hospital in [place]( couldn't confirm if it is [facility] [place]) where she had LP and MRI as [...] symptoms last year with extensive workup in [place] last year that resolved after a week, [...] stockings (nh,oh) VTE Prophylaxis: VTE prophylaxis appropriate SIGNATURE: Lula Frank MD PATIENT NAME: Karyn Estes DATE: May 08, 2019 TIME: 2:42 AM PAGER/CONTACT #: [phone] [facility] NURSING PROGon 05-08-2019 NURSING PROG HNO ID: [id number] Author: Mirna (Rn) KELECHI Carranza Service: ? Author Type: Registered Nurse Type: Nursing Progress Note Filed: 05/08/2019 3:09 PM Note Text: Post Fall Assessment Karyn Estes [id number] Witnessed: Yes How did fall occur: Getting [...] This note was completed by:Mirna Carranza RN [id number] Author: Makenna GallegosRn) KELECHI Anderson Service: ? Author Type: Registered Nurse Type: Nursing Progress Note Filed: 05/08/2019 6:58 AM Note Text: Nursing Progress Note Patient Name: Karyn Estes Patient Location: [place] [address] [address] Daily Note: Labs resulted. K 3.3. Alpha paged Cross Coverage [id number]. Awaiting further orders. (5044) New orders received. This note was completed by: Makenna Anderson RN [facility] NURSING PROG HNO ID: [id number] Author: Makenna GallegosRn) KELECHI Anderson Service: ? Author Type: Registered Nurse Type: Nursing Progress Note Filed: 05/08/2019 2:18 AM Note Text: Admission/Transfer Note PATIENT NAME: Karyn Estes Patient admitted from [facility] ED via stretcher in stable condition. Actions taken: Patient oriented to room, call light function, prescribed activities, Patient rights and Quiet at night. No futher actions taken at this time. Will continue to monitor and check with patient. This note was completed by: Makenna Anderson RN [facility] NUTRITIONon 05-08-2019 NUTRITION HNO ID: [id number] Author: Hang Arreola Service: Nutrition Therapy Author [...] year she was admitted to hospital in [place]( couldn't confirm if it is [facility] [place]) [...] Resting Metabolic Rate: 1251 Estimated kilocalorie needs: 0756-0197 kilocalories determined by 25-30 kcal/kg Estimated protein needs: 52-78 grams determined by 1.0-1.5 g/kg Dosing weight Estimated fluid needs: 0371-0569 milliliters based on 1 mL per kcal [...] May 08, 2019 TIME: 1:09 PM PAGER: [phone] [facility] PROGRESSon 05-08-2019 PROGRESS HNO ID: [id number] Author: Perla Whelan Service: Hospital Medicine Author [...] consult appreciated. Similar presentation in 08/2018 at [facility]. Extensive work up, including LP and full spine MRI to r/o myelopathy. Infection, [place], MS and AIDP/CIDP were ruled out. Was [...] Associate Staff, Department of Hospital Medicine Clinical Aircraft Mechanic Structureslandscape nurseryman, CCL of [facility] Pager [phone] [facility] Toxicology Screen,[place] 05-08 Amphetamines, Urine Negative Normal Negative [facility] Comment on above: Result Comment: Cuto ff threshold at 1000 ng/mL. Performed By: #### U TOX2, UAWMIC #### [facility] [address] [place] [phone] Barbiturates, Urine Negative Normal Negative [facility] Comment on above: Result Comment: Cuto ff threshold at 200 ng/mL. Performed By: #### U TOX2, UAWMIC #### [facility] [address] [place] [phone] Benzodiazepines, Ur Negative Normal Negative [facility] Comment on above: Result Comment: Cuto ff threshold at 200 ng/mL. Performed By: #### U TOX2, UAWMIC #### [facility] [address] [place] [phone] Cannabinoids, Urine Negative Normal Negative [facility] Comment on above: Result Comment: Cuto ff threshold at 50 ng/mL. Performed By: #### U TOX2, UAWMIC #### [facility] [address] [place] [phone] Cocaine, Urine Negative Normal Negative [facility] Comment on above: Result Comment: Cuto ff threshold at 300 ng/mL. Performed By: #### U TOX2, UAWMIC #### [facility] [address] [place] [phone] Ethanol, Urine <11 Normal <11 [facility] Comment on above: Performed By: #### U TOX2, UAWMIC #### [facility] [address] [place] [phone] Opiates, Urine Negative Normal Negative [facility] Comment on above: Result Comment: Cuto ff threshold at 300 ng/mL. Performed By: #### U TOX2, UAWMIC #### [facility] [address] [place] [phone] Oxycodone, Urine Negative Normal Negative [facility] Comment on above: Result Comment: Cuto [...] on the same specimen through Client Services ([phone]) if contacted within 48 hours of initial testing. [1]Substance Abuse and Mental Health Services Administration (2012). Clinical Drug Testing in Primary Care Technical Assistance Publication Series 32. Department of Health and Human Services, [place], p.10. These tests were developed and their performance characteristics determined by [facility] [place] ([facility]). They have not been cleared or approved by the FDA. [facility] is regulated under CLIA as qualified to perform high complexity testing. These tests are used for clinical purposes. They should not be regarded as investigational or for research. Performed By: #### U TOX2, UAWMIC #### [facility] [address] [place], [place] [address] Phencyclidine, Urine Negative Normal Negative [facility] Comment on above: Result Comment: Cuto ff threshold at 25 ng/mL. Performed By: #### U TOX2, UAWMIC #### [facility] [address] [place], [place] [address] Urinalysis with Microscopico n 05-08-2019 Bilirubin, Urine Negative Normal Negative [facility] Comment on above: Performed By: #### U TOX2, UAWMIC #### [facility] [address] [place], [place] [address] Clarity (U) Cloudy Critically abnormal Clear [facility] Comment on above: Performed By: #### U TOX2, UAWMIC #### [facility] [address] [place] [phone] Color (U) Yellow Normal Yellow [facility] Comment on above: Performed By: #### U TOX2, UAWMIC #### [place] [address] [place] [phone] Comments SEE COMMENT Normal [facility] Comment on above: Result Comment: N/A Performed By: #### U TOX2, UAWMIC #### [place] [address] [place] [address] Epithelial cells LM.HPF (Urine sed) [#/Area] SEE COMMENT Normal [facility] Comment on above: Result Comment: Few Squamous Epithelial Cells Performed By: #### U TOX2, UAWMIC #### [place] [address] [place] [phone] Glucose Ql (U) Negative Normal Negative [facility] Comment on above: Performed By: #### U TOX2, UAWMIC #### [place] [address] [place] [phone] Hemoglobin/Blood,Ur Negative Normal Negative [facility] Comment on above: Performed By: #### U TOX2, UAWMIC #### [place] [address] [place] [phone] Ketones Ql (U) Negative Normal Negative [facility] Comment on above: Performed By: #### U TOX2, UAWMIC #### [place] [address] [place] [phone] Leukest 2+ Critically abnormal Negative [facility] Comment on above: Performed By: #### U TOX2, UAWMIC #### [facility] [place] [phone] Nitrite Ql (U) Negative Normal Negative [facility] Comment on above: Performed By: #### U TOX2, UAWMIC #### [facility] [address], [place] [address] pH (Bld) 7.0 Normal 4.5-8.0 [facility] Comment on above: Performed By: #### U TOX2, UAWMIC #### [facility] [address] [place], [place] [address] Protein (U) [Mass/Vol] Negative Normal Negative Cl [facility] Comment on above: Performed By: #### U TOX2, UAWMIC #### [place] [address] [place] [address] RBC (U) [#/Vol] 0-3 Normal 0-3 [facility] Comment on above: Performed By: #### U TOX2, UAWMIC #### [place] [address] [place], [place] [address] Specific [place], Ur 1.006 Normal 1.005-1 .03 0 [facility] Comment on above: Performed By: #### U TOX2, UAWMIC #### [place] [address] [place], [place] [address] Urine Nolberto Comment SEE COMMENT Normal [facility] Comment on above: Result Comment: N/A Performed By: #### U TOX2, UAWMIC #### [place] [address] [place] [address] Urobilinogen Qn (U) Normal Normal Normal [facility] Comment on above: Performed By: #### U TOX2, UAWMIC #### [facility] [address] [place], [place] [address] WBC (Bld) [#/Vol] 11-25 Critically abnormal 0-5 [facility] Comment on above: Performed By: #### U TOX2, UAWMIC #### [facility] [address] [place], [place] [address] Urine Cultureon 05-08-2019 Bacteria identified Cx Nom (U) Sp. Request/Comment: - Specimen received in preservative Culture Result - No growth (<1,000 CFU/ml) Normal [facility] Comment on above: Performed By: #### C BENJAMIN CMP #### [place] [address] Vitamin B12on 05-08-2019 Cobalamin (Vitamin B12) [Mass/Vol] 1214 pg/mL Normal 232-1245 [facility] Vitamin D 25 Hydroxyon 05-08 Vitamin D 25 Hydroxy 6.1 ng/mL Low 31.0-80.0 [facility] Comment on above: Result Comment: Clas sification of 25 [place] Vitamin D status: Insufficiency/Moderate Deficiency: < or = 30 ng/mL Sufficiency/Optimal Levels: 31 to 80 ng/mL Toxicity: > 100 ng/mL Test performed by chemiluminescent immunoassay. Performed By: #### V ITD #### [place] [address] Blood Cultureon 05-07-2019 Bacteria identified Cx Nom (Bld) Culture Result - No growth 5 days Normal [facility] Comment on above: Performed By: #### C BENJAMIN CMP #### [place] [address] CBC and Differentialon 05-07 Abs Baso <0.03 Normal <0.11 [facility] Comment on above: Performed By: #### C BCKRYSTALF, CMP #### [place] [address] Abs Davis 0.59 k/uL Normal <0.87 [facility] Comment on above: Performed By: #### C BCKRYSTALF, CMP #### [place] [phone] Abs Neut 3.97 k/uL Normal 1.45-7.50 [facility] Comment on above: Performed By: #### C BCKRYSTALF, CMP #### [address], [place] [address] Absolute nRBC <0.01 Normal <0.01 [facility] Comment on above: Performed By: #### C BCDIF, CMP #### [place] [address] [place] [phone] Basophils/100 WBC (Bld) 0.3 % Normal [facility] Comment on above: Performed By: #### C BCDIF, CMP #### [place] [address] [place] [address] DTYPE Auto Diff Normal [facility] Comment on above: Performed By: #### C BCDIF, CMP #### [place] [address] Eosinophils (Bld) [#/Vol] 0.03 10*3/uL Normal <0.46 [facility] Comment on above: Performed By: #### C BCDIF, CMP #### [place] [address] [place] [address] Eosinophils/100 WBC (Bld) 0.5 % Normal [facility] Comment on above: Performed By: #### C BCDIF, CMP #### [place] [address] [place] [address] Erythrocyte distribution width (RBC) [Ratio] 13.2 % Normal 11.5-15.0 [facility] Comment on above: Performed By: #### C BCDIF, CMP #### [place] [address] [place] [address] Hematocrit (Bld) [Volume fraction] 39.9 % Normal 36.0-46.0 [facility] Comment on above: Performed By: #### C BCDIF, CMP #### [place] [address] [place] [phone] Hemoglobin (Bld) [Mass/Vol] 14.4 g/dL Normal 11.5-15.5 [facility] Comment on above: Performed By: #### C BCDIF, CMP #### [place] [address] [place], [place] [address] Lymphocytes (Bld) [#/Vol] 1.23 10*3/uL Normal 1.00-4.00 [facility] Comment on above: Performed By: #### C BCDIF, CMP #### [place] [address] [place], [place] [address] Lymphocytes/100 WBC (Bld) 21.0 % Normal [facility] Comment on above: Performed By: #### C BCDIF, CMP #### [address] [address] MCH (RBC) [Entitic mass] 40.6 pG High 26.0-34.0 [facility] Comment on above: Performed By: #### C BCDIF, CMP #### [address] [address] MCHC (RBC) [Mass/Vol] 36.1 g/dL High 30.5-36.0 [facility] Comment on above: Performed By: #### C BCDIF, CMP #### [place] [address] [place], [place] [address] MCV (RBC) [Entitic vol] 112.4 fL High 80.0-100.0 [facility] Comment on above: Performed By: #### C BCDIF, CMP #### [place] [address] [place], [place] [address] Monocytes/100 WBC (Bld) 10.1 % Normal [facility] Comment on above: Performed By: #### C BCDIF, CMP #### [place] [address] [place], [place] [address] Neutrophils/100 WBC (Bld) 68.1 % Normal [facility] Comment on above: Performed By: #### C BCDIF, CMP #### [facility] [address] [place] [address] NRBCs 0.0 /100 WBC Normal 0 [facility] Comment on above: Performed By: #### C BCDIF, CMP #### [place] [address] [place] [address] Platelet mean volume (Bld) [Entitic vol] 9.7 fL Normal 9.0-12.7 [facility] Comment on above: Performed By: #### C BCDIF, CMP #### [place] [address] Platelets (Bld) [#/Vol] 237 10*3/uL Normal 150-400 [facility] Comment on above: Performed By: #### C BCDIF, CMP #### [place] [phone] RBC (Bld) [#/Vol] 3.55 10*6/uL Low 3.90-5.20 [facility] Comment on above: Performed By: #### C BCDIF, CMP #### [place] [address] Review Done Normal [facility] Comment on above: Performed By: #### C BCDIF, CMP #### [place] [address] [place] [phone] WBC (Bld) [#/Vol] 5.85 10*3/uL Normal 3.70-11.00 [facility] Comment on above: Performed By: #### C BCDIF, CMP #### [place] [address] CKon 05-07-2019 CK [Catalytic activity/Vol] 84 U/L Normal 42-196 [facility] Comment on above: Performed By: #### C BCDIF, CMP #### [address] [place] [address] Comp Metabolic Panelon 05-07 Albumin [Mass/Vol] 3.9 g/dL Normal 3.9-4.9 [facility] Comment on above: Performed By: #### C BCDIF, CMP #### [facility] [address] [place], [place] [address] ALP [Catalytic activity/Vol] 113 U/L Normal 34-123 [facility] Comment on above: Performed By: #### C BCDIF, CMP #### [facility] [address] [place] [address] ALT [Catalytic activity/Vol] 27 U/L Normal 7-38 [facility] Comment on above: Performed By: #### C BCDIF, CMP #### [place] [address] [place] [address] Anion gap [Moles/Vol] 15 mmol/L Normal 9-18 [facility] Comment on above: Performed By: #### C BCDIF, CMP #### [facility] [address] [place] [address] AST [Catalytic activity/Vol] 51 U/L High 13-35 [facility] Comment on above: Performed By: #### C BCDIF, CMP #### [facility] [address] [place] [address] Bilirubin [Mass/Vol] 0.6 mg/dL Normal 0.2-1.3 [facility] Comment on above: Performed By: #### C BCDIF, CMP #### [facility] [address] [place] [address] Calcium [Mass/Vol] 9.5 mg/dL Normal 8.5-10.2 [facility] Comment on above: Performed By: #### C BCDIF, CMP #### [facility] [address] [place] [id number] Chloride [Moles/Vol] 101 mmol/L Normal 97-105 [facility] Comment on above: Performed By: #### C BCKRYSTALF, CMP #### [facility] [address] [place], [place] [address] CO2 [Moles/Vol] 22 mmol/L Normal 22-30 [facility] Comment on above: Performed By: #### C BCKRYSTALF, CMP #### [facility] [address] [place] [address] Creatinine [Mass/Vol] 0.48 mg/dL Low 0.58-0.96 [facility] Comment on above: Performed By: #### C BCKRYSTALF, CMP #### [place] [address] [place] [address] eGFR- Amer. >60 Normal [facility] Comment on above: Performed By: #### C BCDIF, CMP #### [place] [address] [place] [address] GFR/1.73 sq M predicted among non-blacks MDRD (S/P/Bld) [Vol rate/Area] mL/min/{1.73_m2} Normal [facility] Comment on above: Result Comment: eGFR [...] Performed By: #### C BCDIF, CMP #### [facility] [address] [place], [place] [address] Glucose [Mass/Vol] 103 mg/dL High 74-99 [facility] Comment on above: Result Comment: The [place] Diabetes Association (ADA) provides guidance for cutoff [...] Standards of Medical Care in Diabetes 2016, [place] [employer] Association. Diabetes Care. 2016.39(Suppl 1). Performed By: #### C BENJAMIN, CMP #### [facility] [employer] [address] [place], [place] [address] Potassium [Moles/Vol] 3.4 mmol/L Low 3.7-5.1 [facility] Comment on above: Performed By: #### C BENJAMIN, CMP #### [facility] [address] [place], [place] [address] Protein [Mass/Vol] 7.2 g/dL Normal 6.3-8.0 [facility] Comment on above: Performed By: #### C EVERARDOF, CMP #### [facility] [address] [place], [place] [address] Sodium [Moles/Vol] 138 mmol/L Normal 136-144 [facility] Comment on above: Performed By: #### C BENJAMIN, CMP #### [facility] [address] [place], [place] [address] Urea nitrogen [Mass/Vol] 4 mg/dL Low 7-21 [facility] Comment on above: Performed By: #### C BENJAMIN, CMP #### [facility] [address] [place], [place] [address] ED NOTEon 05-07-2019 ED NOTE HNO ID: [id number] Author: Claudia Person) KELECHI Segura Service: Emergency [...] LIP of any changes in condition. Normal [facility] ED NOTE HNO ID: [id number] Author: Smita GallegosRn) KELECHI Lyles Service: ? Author Type: Registered Nurse Type: ED Notes Filed: 05/07/2019 8:57 PM Note Text: Bed: E13-B07 Expected date: 05/07/19 Expected time: 8:52 PM Means of arrival: Comments: Normal [facility] ED PROV NOTEon 05-07-2019 ED PROV NOTE HNO ID: [id number] Author: Felix Resendiz Service: Emergency Medicine Author [...] physical therapy. MRI brain on 08/31/18 at [facility] was significant only for nonspecific Mild [...] no recent illness or fever to suggest Guillain-[place] Syndrome. Urine tox is negative. Patient treated [...] screen pending Discussed with Dr Frank at [facility], who accepted patient for transfer and admit to general medicine service. - OARRS reviewed - significant for suboxone therapy SIGNATURE: LENORA Reynaga) Jv 05/08/19 0016 Lon Trevino) [place] 05/08/19 0031 Attending Note I have personally performed a face to face assessment of the patient and have reviewed the PA/SURGICAL SUPERVISOR note. My vu findings include: 29 yo [...] 4:35 PM Felix Resendiz 05/09/19 1637 Normal [facility] [employer] Shaun Willett 05-07 Arsenic Blood <10.0 Normal 0.0-12.0 [facility] Comment on above: Result Comment: (NOT E) [...] exposure. Test developed and characteristics determined by [employer] ([employer]). See Compliance Statement B: [employer]/CS Performed By: #### C BCDIF, CMP #### [facility] [address] [place], [place] [address] Lead Blood 2.8 ug/dL Normal 0.0-4.9 [facility] Comment on above: Result Comment: (NOT E) [...] present. Test developed and characteristics determined by [employer] ([employer]). See Compliance Statement B: [employer] Performed By: #### C BCDIF, CMP #### [facility] [address] [place], [place] [address] Mercury, Blood <2.5 Normal 0.0-10.0 [facility] Comment on above: Result Comment: (NOT E) [...] ug/L. Test developed and characteristics determined by [employer] ([employer]). See Compliance Statement B: [employer]/CS Performed by [employer] ([employer]), [facility] [place] [address] [email or web address], George Arguello MD, Lab. Director Performed By: #### C BCDIF, CMP #### [facility] [address] [place], [place] [address] Lipaseon 05-07-2019 Lipase [Catalytic activity/Vol] 23 U/L Normal 16-61 [facility] Comment on above: Performed By: #### L IPA #### [facility] [address] [place], [place] [address] Vital Signs Date Time Vital Sign Value Performing Clinician Facility 08-23-2024 08:14-0400 Body height 167.6 cm Erica [facility]donado DPM [facility] [employer] 08-23-2024 08:14-0400 Body temperature 98.49 [degF] Ericarashid Nguyễnley DPM Work Phone: [facility] [employer] 08-23-2024 08:14-0400 Diastolic blood pressure 72 mm[Hg] Erica Maldonado DPM Work Phone: [facility] [employer] 08-23-2024 08:14-0400 Heart rate 87 /min Erica Maldonado DPM Work Phone: [facility] [employer] 08-23-2024 08:14-0400 Respiratory rate 14 /min Erica Maldonado DPM Work Phone: [facility] [employer] 08-23-2024 08:14-0400 SaO2% (BldA) [Mass fraction] 96 % Erica Maldonado DPM Work Phone: [facility] [employer] 08-23-2024 08:14-0400 Systolic blood pressure 105 mm[Hg] Erica Maldonado DPM Work Phone: [facility] 08-23-2024 08:07-0400 Body mass index (BMI) [Ratio] 23.08 kg/m2 Erica Maldonado DPM Work Phone: [facility] 08-23-2024 08:07-0400 Body weight 64.86 kg Erica Maldonado DPM Work Phone: [facility] 09-16-2023 12:18-0500 Diastolic blood pressure 74 mm[Hg] MD Carl Child Work Phone: [facility] 09-16-2023 12:18-0500 Heart rate 84 /min MD Carl Child Work Phone: [facility] 09-16-2023 12:18-0500 Respiratory rate 16 /min MD Carl Child Work Phone: [facility] 09-16-2023 12:18-0500 SaO2% (BldA) [Mass fraction] 98 % MD Carl Child Work Phone: [facility] 09-16-2023 12:18-0500 Systolic blood pressure 122 mm[Hg] MD Carl Child Work Phone: [facility] 09-16-2023 12:00-0500 Body temperature 97.9 [degF] MD Carl Child Work Phone: [facility] 09-16-2023 06:00-0500 Body weight 60 kg MD Carl Child Work Phone: [facility] 09-13-2023 13:19-0500 Body height 167.64 cm MD Carl Child Work Phone: [facility] 09-11-2023 20:48-0500 Diastolic blood pressure 74 mm[Hg] MD Carl Child Work Phone: [facility] 09-11-2023 20:48-0500 Heart rate 84 /min MD Carl Child Work Phone: [facility] 09-11-2023 20:48-0500 Respiratory rate 18 /min MD Carl Child Work Phone: [facility] 09-11-2023 20:48-0500 SaO2% (BldA) [Mass fraction] 98 % MD Carl Child Work Phone: [facility] 09-11-2023 20:48-0500 Systolic blood pressure 108 mm[Hg] MD Carl Child Work Phone: [facility] 09-11-2023 17:06-0500 Body height 167.64 cm MD Carl Child Work Phone: [facility] 09-11-2023 17:06-0500 Body weight 52.7 kg MD Carl Child Work Phone: [facility] 09-11-2023 17:04-0500 Body temperature 98.9 [degF] MD Carl Child Work Phone: [facility] 12-16-2021 10:43-0500 Body height 167.64 cm MD Carl Child Work Phone: [facility] 12-16-2021 10:43-0500 Body mass index (BMI) [Ratio] 20.4 kg/m2 MD Carl Child Work Phone: [facility] 12-16-2021 10:43-0500 Body temperature 98.8 [degF] MD Carl Child Work Phone: [facility] 12-16-2021 10:43-0500 Body weight 57.4 kg MD Carl Child Work Phone: [facility] 12-16-2021 10:43-0500 Diastolic blood pressure 56 mm[Hg] MD Carl Child Work Phone: [facility] 12-16-2021 10:43-0500 Heart rate 102 /min MD Carl Child Work Phone: [facility] 12-16-2021 10:43-0500 Respiratory rate 18 /min MD Carl Child Work Phone: [facility] 12-16-2021 10:430500 SaO2% (BldA) [Mass fraction] 98 % MD Carl Child Work Phone: [facility] 12-16-2021 10:43-0500 Systolic blood pressure 123 mm[Hg] MD Carl Child Work Phone: [facility] Encounters Encounter Date Encounter Type Care Provider Facility Start: 08-23-2024 End: 08-23-2024 ambulatory ERICA Ta [facility] Start: 08-23-2024 End: 08-23-2024 Subsequent hospital visit by physician Erica Maldonado DPM [facility] Start: 08-20-2024 ambulatory ERICA Ta [facility] Start: 09-11-2023 End: 09-16-2023 Evaluation and management of inpatient Gem Velasco Facility:[facility] Start: 09-11-2023 End: 09-16-2023 Evaluation and management of inpatient MD Carl Child Work Phone: [facility] Work Phone: Start: 06-11-2023 End: 07-30-2023 ambulatory UNKNOWN PROVIDER Facility:[facility] Start: 12-16-2021 End: 12-16-2021 Emergency department patient visit MD Carl Child Work Phone: [facility] Start: 06-16-2021 End: 06-16-2021 ambulatory ONI CARMICHAEL Facility:[facility] Start: 07-04-2020 Encounter for genera l adult medical examination without abnormal findings DR CARL CHILD [facility] Start: 07-02-2020 End: 07-03-2020 ambulatory CORNELIA SMILEY [...] toe of right foot 08/23/2024 9:24 AM [facility] Start: 08-23-2024 End: 08-23-2024 Correction hammertoe TOE HAMMER REPAIR Mallet toe of right foot Hammer toe of right foot 08/23/2024 9:24 AM [facility] Start: 07-01-2024 COVID-19 Vaccine ( season) COVID-19 Vaccine () [facility] Start: 05-31-2024 Influenza vaccination Flu vaccine (# 1) [facility] Start: 09-16-2023 [facility] Start: 09-12-2023 [facility] Start: 09-11-2023 Consultation [facility] Start: 09-11-2023 Hospital admission [facility] Start: 09-11-2023 [facility] Start: 09-11-2023 CT of head without contrast CT head/brain wo con [facility] Start: 09-11-2023 CT Unspecified body region WO contrast [facility] Start: 09-11-2023 Bacteria identified in Urine by Culture [facility] Start: 02-07-2018 Screening for malign ant neoplasm of cervix [facility] Start: 02-07-2009 Screening for malign ant neoplasm of cervix Pap smear [facility] Start: 02-07-2007 DTaP/Tdap/Td vaccine (1 - Tdap) DTaP/Tdap/Td vaccine (1 - Tdap) [facility] Start: 02-07-2007 Hepatitis B vaccine (1 of 3 - 19+ 3-dose series) Hepatitis B vaccine (1 of 3 - 19+ 3-dose series) [facility] Start: 02-07-2001 Varicella vaccine (1 of 2 - 13+ 2-dose series) Varicella vaccine (1 of 2 - 13+ 2-dose series) [facility] Start: 2000 Depression Screen Depression Screen [facility] Albumin/Globulin ratio [facility] Anion gap measurement [facility] Basophils [#/volume] in Blood by Automated count [facility] Basophils/100 leukoc ytes in Blood by Automated count [facility] Eosinophils [#/volum e] in Blood [facility] Eosinophils/100 leukocytes in Blood by Automated count [facility] Erythrocyte distribu tion width [Ratio] by Automated count [facility] Erythrocytes [#/volu me] in Blood [facility] Globulin [Mass/volum e] in Serum [facility] Hematocrit [Volume Fraction] of Blood [facility] Hemoglobin [Mass/vol ume] in Blood [facility] INR in Platelet poor plasma by Coagulation assay [facility] Leukocytes [#/volume ] corrected for nucleated erythrocytes in Blood by Automated coun [facility] Leukocytes [#/volume ] in Blood [facility] Lymphocytes [#/volum e] in Blood by Automated count [facility] Lymphocytes/100 leukocytes in Blood by Automated count [facility] MCH [Entitic mass] b y Automated count [facility] MCHC [Mass/volume] b y Automated count [facility] MCV [Entitic volume] by Automated count [facility] Monocytes [#/volume] in Blood by Automated count [facility] Monocytes/100 leukoc ytes in Blood by Automated count [facility] Neutrophils [#/volum e] in Blood by Automated count [facility] Neutrophils/100 leukocytes in Blood by Automated count [facility] Nucleated erythrocyt es [Presence] in Blood by Automated count [facility] Patient Education [facility] Work Phone: Patient referral [facility] Work Phone: Platelet mean volume [Entitic volume] in Blood by Automated count [facility] Platelets [#/volume] in Blood [facility] Prothrombin time (PT) [facility] Payers Date Payer Category Payer Self-pay [id number] 2023 Unknown 2022 Medicaid [id number] 1990 Unknown [id number] 2.16.84 [id number] 1988 Unknown [id number] 2.16.84 [id number] 1988 Unknown [id number] 2.16.84 [id number] 1988 Unknown [id number] 2.16. [id number] 1988 Unknown [id number] 2.16.8 [id number] 1959 Unknown [id number] Medicaid [employer] [id number] 501 [id number] Unknown [id number] 2.16.8 [id number] Social History Date Type Detail Facility Start: 12-16-2021 End: 09-11-2023 Tobacco smoking status NHIS Smoker (finding) [facility] Start: 1990 Sex Assigned At Female F [facility] Start: 08-22-2024 Tobacco smoking stat us [facility] Ex-smoker [employer] History of tobacco use Cigarette Smoker B on [employer] Start: 08-22-2024 Tobacco use and exposure Smokeless tobacco non-user [employer] Start: 08-23-2024 Alcoholic beverage intake Current drinker of alcohol (finding) [employer] Start: 11-30-2014 History of Social function [employer] Start: 11-30-2014 Tobacco use panel [facility] Start: 08-22-2024 Alcohol Comment socially [facility] Start: 1990 Sex assigned at Not on file B on [facility] Goals Date Patient Goal Desired Activity /State Functional Status Date Assessment Result Facility 09-16-2023 Functional status Patient at Baseline [facility] Work Phone: Mental Status Date Assessment Result Facility 09-16-2023 Cognitive function Cognitive Sta tus Patient at Baseline [facility] Work Phone: Clinical Notes 09-11-2023 to 08-23-2024 Aure Taylor RN - 08/23/2024 9:00 AM Aure Bazan RN - 08/23/2024 8:16 AM Tricia Quintero RN - 08/22/2024 3:14 PM Tricia Quintero RN - 08/22/2024 12:58 PM EDT Note [...] PAT phone call. documented in this encounter [facility] 09-15-2023 Progress note Note Date/Time September 15, 2023 3:35pm [facility] [address] [place] [address] Hospitalist Progress Note Signed Patient: Karyn Estes MR#: [id number] : 1990 Acct:[id number] Age/Sex: 33 / F Adm Date: 3 Loc: Room: 8X8011-3 Type: ADM IN Attending Dr: Tyrone Barron [...] of care and confirmed it with the resident/student/FERRY BOAT CAPTAIN. ======== Ms. Estes says she is feeling okay today but very tired. She denies abdominal pain, tremors, hallucinations, N/V or diarrhea. Per nursing, she was restless again last night and had to be given 14 Ativan per [facility] protocol. She has been resting [...] % Nacl IV 09/10/24 21:44 Not Given .[id number] VIKTOR Dexmedetomidine HCl 400 mcg/ 100 mls [...] withdrawal Patient began having visual hallucinations 09/12. Drayton slipped after attempting to leave AMA. Continued [...] <Electronically signed by Tyrone Barron MD> 09/15/23 4983 [facility] Work Phone: 1(735) 426-426411-15-2023 Progress note Author Tyrone Barron [facility] September 14, 2023 2:13pm Note Date/Time September 14, 2023 2:13pm [facility] [address] [place] [address] Hospitalist Progress Note Signed Patient: Karyn Estes MR#: [id number] : 1990 Acct:[id number] Age/Sex: 33 / F Adm Date: 3 Loc: Room: [address] [place] [address] Type: ADM IN Attending Dr: Tyrone Barron [...] of care and confirmed it with the resident/student/FERRY BOAT CAPTAIN. Patient is resting comfortably in bed. Per [...] % Nacl IV 09/10/24 21:44 Not Given .[id number] VIKTOR Dexmedetomidine HCl 400 mcg/ 100 mls [...] withdrawal Patient began having visual hallucinations 09/12. Drayton slipped after attempting to leave AMA. Continued hallucinations, confusion, restlessness. -Continue CIWA protocol and thiamine supplementation. -CO2 monitor due to decreased responsiveness/periods of apnea. Seizure/bruise Patient presented to ER from [facility] due to concern for withdrawal seizure. Bruise on right temporal area. -Head CT revealed no acute intracranial trauma. Anxiety/depression-chronic -continue home medications DVT prophylaxis: Lovenox Documented By: Tyrone Barron MD 09/14/23 0935 Signed By: <Electronically signed by Tyrone Barron MD> 09/14/23 3909 [facility] Work Phone: 1(272) 521-113111-14-2023 Progress note Author Tyrone Barron [facility] September 13, 2023 11:41am Note Date/Time September 13, 2023 11:41am [facility] [address] [place] [address] Hospitalist Progress Note Signed Patient: Karyn Estes MR#: [id number] : 1990 Acct:[id number] Age/Sex: 33 / F Adm Date: 3 Loc: Room: [address] [place] [address] Type: ADM IN Attending Dr: Tyrone Barron [...] of care and confirmed it with the resident/student/FERRY BOAT CAPTAIN. Ms. Estes is feeling much better today. [...] % Nacl IV 09/10/24 21:44 85 mls/hr .[id number] VIKTOR Administration Dexmedetomidine HCl 400 mcg/ 100 [...] Patient began having visual hallucinations yesterday afternoon. Drayton slipped after attempting to leave AMA. -Continue [...] Tyrone Barron MD> 09/13/23 1141 [facility] Work Phone: 1(925) 455-598411-14-2023 Progress note Author Tyrone Barron [facility] September 13, 2023 11:35am Note Date/Time September 12, 2023 12:38pm [facility] [address] [place] [address] Hospitalist Progress Note Signed Patient: Karyn Estes MR#: [id number] : 1990 Acct:[id number] Age/Sex: 33 / F Adm Date: 3 Loc: Room: [address] [place] [address] Type: ADM IN Attending Dr: Tyrone Barron [...] of care and confirmed it with the resident/student/FERRY BOAT CAPTAIN. Patient is resting comfortably in bed this [...] % Nacl IV 09/10/24 21:44 85 mls/hr .[id number] VIKTOR Administration Lorazepam 0 mg 09/11/23 21:33 [...] signed by Tyrone Barron MD> 09/13/23 1135 [facility] Work Phone: 1(302) 688-791711-13-2023 Progress note Author Gregory Raya [facility] September 12, 2023 10:32am Note Date/Time September 12, 2023 10:33am [facility] [address] [place] [address] Progress Note Signed Patient: Karyn Estes MR#: [id number] : 1990 Acct:[id number] Age/Sex: 33 / F Adm Date: 3 Loc: Room: [address] [place] [address] Type: ADM IN Attending Dr: Tyrone Barron [...] signed by Gregory Raya MD> 09/12/23 1032 [facility] Work Phone: 1(563) 473-684111-12-2023 History and physical note Author Gem Velasco [facility] September 11, 2023 9:33pm Note Date/Time September 11, 2023 9:25pm [facility] [address] [place] [address] Hospitalist H&P Signed Patient: Karyn Estes MR#: [id number] : 1990 Acct:[id number] Age/Sex: 33 / F Adm Date: 3 Loc: Room: [address] [place] [address] Type: ADM IN Attending Dr: Gem Velasco MD Copies to: MD Gem Malloy MD~ HPI DATE OF EXAMINATION: 09/11/23 CHIEF COMPLAINT: Concern for withdrawal seizure. HISTORY OF PRESENT ILLNESS: Patient is a 33-year-old female with history of alcohol abuse, she was sent to the emergency room by EMS from [facility] with concern for withdrawal seizure. Apparently [...] of Systems Unobtainable due to mental status [facility] Medical History Anxiety Colitis Depression History of [...] % (Auto) 22.7 % (.) 09/11/23 18:51 Davis % (Auto) 7.3 % (.) 09/11/23 18:51 Eos % (Auto) 0.8 % (.) 09/11/23 18:51 Baso % (Auto) 0.4 % (.) 09/11/23 18:51 Nucleat RBC Rel Count 0.1 /100 WBC (0-0.5) 09/11/23 18:51 Neut # (Auto) 3.1 x10E3/uL (1.8-7.7) 09/11/23 18:51 Lymph # (Auto) 1.0 x10E3/uL (1.00-4.8) 09/11/23 18:51 Davis # (Auto) 0.3 x10E3/uL (0.0-0.8) 09/11/23 18:51 [...] pH 6.0 (5.0-9.0) 09/11/23 18:37 Ur Specific [place] 1.005 (1.001-1.030) 09/11/23 18:37 Urine Protein Negative [...] <Electronically signed by Gem Velasco MD> 09/11/232132 [facility] Work Phone: Discharge summary Author Tyrone Barron [facility] September 16, 2023 3:02pm Note Date/Time September 16, 2023 3:02pm [facility] [address] [place] [address] Discharge Summary Signed Patient: Karyn Estes MR#: [id number] : 1990 Acct:[id number] Age/Sex: 33 / F Adm Date: 3 Loc: Room: [address] [place] [address]: Tyrone Barron MD Copies to: [...] who presented to the emergency department from [facility], after she woke up in the [...] Qty: 20 0RF Follow Up: [facility] [place] [Outside] (Please call to schedule a follow up with [facility] if you decide.) Carl Child MD [Primary Care Provider] - 09/19/23 11:15 am (You have been scheduled for a follow up appointment for the following date and time, please call to reschedule if needed.) Documented By: Tyrone Barron MD 09/16/23 1457 Signed By: <Electronically signed by Tyrone Barron MD> 09/16/23 1502 [facility] Work Phone: Evaluation noteNo assessment information available [facility] Work Phone: Evaluation note* Diagnosis Onset Date Resolution Status Alcohol withdrawal acute Seizure acute [facility] Work Phone: Evaluation note* Diagnosis Onset Date Resolution Status Alcohol withdrawal acute Anxiety acute Bruise of face acute Depression acute Seizure acute [facility] Work Phone: History and physical note Author Gem Velasco [facility] September 11, 2023 9:33pm Note Date/Time September 11, 2023 9:25pm [facility] [address] [place] [address] Hospitalist H&P Signed Patient: Karyn Estes MR#: [id number] : 1990 Acct:[id number] Age/Sex: 33 / F Adm Date: 3 Loc: Room: [address] [place] [address] Type: ADM IN Attending Dr: Gem Velasco MD Copies to: MD Gem Malloy MD~ HPI DATE OF EXAMINATION: 09/11/23 CHIEF COMPLAINT: Concern for withdrawal seizure. HISTORY OF PRESENT ILLNESS: Patient is a 33-year-old female with history of alcohol abuse, she was sent to the emergency room by EMS from [facility] with concern for withdrawal seizure. Apparently [...] of Systems Unobtainable due to mental status [facility] Medical History Anxiety Colitis Depression History of [...] % (Auto) 22.7 % (.) 09/11/23 18:51 Davis % (Auto) 7.3 % (.) 09/11/23 18:51 Eos % (Auto) 0.8 % (.) 09/11/23 18:51 Baso % (Auto) 0.4 % (.) 09/11/23 18:51 Nucleat RBC Rel Count 0.1 /100 WBC (0-0.5) 09/11/23 18:51 Neut # (Auto) 3.1 x10E3/uL (1.8-7.7) 09/11/23 18:51 Lymph # (Auto) 1.0 x10E3/uL (1.00-4.8) 09/11/23 18:51 Davis # (Auto) 0.3 x10E3/uL (0.0-0.8) 09/11/23 18:51 [...] pH 6.0 (5.0-9.0) 09/11/23 18:37 Ur Specific [place] 1.005 (1.001-1.030) 09/11/23 18:37 Urine Protein Negative [...] <Electronically signed by Gem Velasco MD> 09/11/232132 [facility] Work Phone: Hospital Discharge instructions Additional Instructions Take the antibiotics Bactrim and Keflex both twice a day for 10 days take until completed Ibuprofen every 6 hours as needed for pain You may want to sports the area after using the restroom to clean it You may not soak in a bathtub but you can take a shower See ANGIO TECHNOLOGIST as scheduled next month Return to the ER immediately for worsening pain swelling fever chills vomiting or any other [facility] Work Phone: Summary Purpose Family History No Family History Records Found Relationship Condition Age at Onset Recorded Date/T carrie father Malignant neoplasm of lung Unknown Not Specified Family history of mental disorder Unknow n Advance Directives No Advanced Directives Records Found Advance Directive Response Recorded Date/ Time Advance Directives No September 05, 2018 3:35pm Hospital Course Note HNO ID: [id number] Author: Shaylee Whelan Service: Hospital Medicine Author [...] section and content) DATE CREATED AUTHOR 05/11/2019 [facility] DATE CREATED AUTHOR AUTHOR'S ORGANIZ ATION 06/26/2019 [facility] DATE CREATED AUTHOR AUTHOR'S ORGANIZ ATION 06/19/2021 [facility] DATE CREATED AUTHOR AUTHOR'S ORGANIZ ATION 08/29/2023 [facility] DATE CREATED AUTHOR AUTHOR'S ORGANIZ ATION 09/23/2023 [facility] DATE CREATED AUTHOR AUTHOR'S ORGANIZ ATION 09/02/2024 [facility] Care Teams (unrecognized sec tion [...] MD Primary Care Provider Active Xochilt Beavers [facility] Emergency Provider Active Team Status: Active Member Role Status Dates Carl Child MD Primary Care Provider Active Roby Thakkar DO Emergency Provider Active Gem Velasco MD Admit Provider, Attending Provider Active Animal Tech Relationship Specialty Start Date End Date Carl Child MD [address] [place] [address] PCP - General 07/19/15 Goals (unrecognized section [...] Hammer toe of right foot [M20.41] Procedures NV ARTHRD W/XTNSR HALLUCIS LONGUS TR 1ST METAR NCK NV CORRECTION HAMMERTOE FOOT ARTHRODESIS-right hallux interphalangeal joint fusion, barillas extensor tendon transposition, hudson bunionectomy TOE HAMMER REPAIR-proxivial interphalangeal joint fusion hammetoe correction digits two through four Erica Maldonado, RHINA [address] [place] [address] [place] [address] [facility] [address] [place] [address] Referral ID Status Reason Start Date Expiration Date Visits Re quested Visits Authorized [id number] 1 1 Scheduled Active and Recently Administ [...] at 0800, Pre-op (day of surgery) 0831 ([facility] ider: Aure Taylor RN) FOR RECORDS PERTAINING [...] BE BASED ON THE PRIMARY CLINICAL RECORDS. [employer] provides no warranty or guarantee of the accuracy or completeness of information in this document.
--- OUTSIDE RECORDS SUMMARY | 2025-04-10 07:34 | XMS_ITS | Patient Health Record ---
Author Organization [facility] Address [address] [place] [address] Care Team Providers Care Sand Cleaning Machine Operator Name Role Phone Landon Carmen Primary Care Provider Hollis Aceves Unavailable [phone] Results Component Value Reference Range Notes Surgery Scheduling Reviewed date:11/28/2024 03:00:36 PM Interpretation: Performing Lab: Notes/Report: Primary Insurance Company: MEDICAID ANTHEM Surgeon/Assist: DR. MALDONADO Surgery Location: [facility] Surgery Date & Time: 08/23/2024 @9:30 AM Hosp arrival time day of: 7:00 AM Surgery End Time: 90 MINS Procedure: RIGHT HALLUX INTERPHALANGEAL JOINT FUSION, BARAJAS EXTENSOR TENDON TRANSPOSITION, SHORT BUNIONECTOMY, PROXIMAL INTERPHALANGEAL JOINT FUSION HAMMERTOE CORRECTION DIGITS TWO THROUGH FOUR Special Equipment: PODIATRY TRAY, STRYK ER CORDLESS BATTERY POWER, [employer] 4.0 HEADLESS COMPRESSION SCREW, [employer] MEDICAL RIKKI, [employer] CITRIFIX ANCHOR, VALERIE FIBER LOOP, K-WIRE COUNTING MACHINE OPERATOR BMI: - C-Arm: YES (SAME SIDE) Mini C-Arm: NO Diagnosis: M20.5X1 RIGHT FOOT M ALLET TOE, HAMMERTOE RIGHT FOOT, RIGHT FOOT BUNION Admission Type: OP Anesthesia Type/CPNB: GENERAL WITH PRE-O P POPLITEAL BLOCK Bed NO Post-op Appointment Date: PATIENT AWARE OF DATE/TIME/LOCATION Latex Allergy NO Lab Location: [facility] Lab Date/Time: COMPLETED Lab Time: - Total [facility] Date/T - Child Life Therapist: FARRAH Dueñas Physician: N/A Clearance Appt Date/T N/A History & Physical Appointment Date/: WILL NEED UPDATED Pre-op labs/Chest Order: - PT Appointment Date/Time: - Had or have MRSA/Direct contact w MRSA pt/[facility] - Spine [facility] - Had dental problems/Yes-no/type: - CPNB: - Ni 2 Inhibitor - (MPOAP - Assist - PAT Date and Time - Jose Pillow - Crutches OTS Reviewed date:08/20/2024 02:37:35 PM Interpretation: Performing Lab: Notes/Report: HCG, ,Urine Reviewed date:09/06/2024 12:31:09 PM Interpretation: Performing Lab: Notes/Report: [facility] [address] [place] [address] Naphthalene Still Operator: Calvin Batres MD HCG, ,Urine NEGATIVE NEG Specimens with hCG levels near the threshold of the test (25 mIU/mL) may give a negative or indeterminate result. In such cases, another test should be performed with a new specimen in 48-72 hours. If early is suspected clinically in this setting, correlation with quantitative serum b-hCG level is suggested. [facility] has confirmed the use of plasma for this test. This has not been cleared or approved by the U.S. Food and Drug Administration. The FDA has determined that such clearance is not necessary. Performing Lab: see note [facility] [address] [place] [address] Reason For Referral Diagnosis 1 Bunion (M20.10) Referred Organization [facility] Referred Provider Hollis Maldonado Referred Address [address] ,[place], [place],[address], Referred Provider Specialty Orthopedic [facility] General Notes Janice Guardado 12/2023 11:24:00 AM >BUNION, SENT TEXT/AUTO CALL REF/Jocelyne CARMEN Referral Priority Routine Reason MCP ANTHEM.............RIGHT HALLUX INTERPHALANGEAL JOINT FUSION, BARAJAS EXTENSOR TENDON TRANSPOSITION, SHORT BUNIONECTOMY, PROXIMAL INTERPHALANGEAL JOINT FUSION HAMMERTOE CORRECTION DIGITS TWO THROUGH FOUR Joie Wolf 08/16/2024 07:28:06 >11680, 11779, 08175 x3 Diagnosis 1 Mallet toe of right foot (M20.5X1) Diagnosis 2 Bunion, right foot ( M21.611) Diagnosis 3 Hammer toe of right foot (M20.41) Referral Organization [facility] Referring Provider First Name Hollis Referring Provider Last Name Erica Referring Provider Speciality Orthopedic Surgery Referred Organization [facility] Surgery Procedure 1 Arthrodesis, with ex tensor hallucis longus transfer to first metatarsal neck, great toe, interphalangeal joint (eg, Barajas type procedure) (39908) Procedure 2 Correction Bunion Ke ller, Short, or Vincent Type (54373) Procedure 3 Correction, hammerto e (08315) General Notes Farrah Sales 04:45:26 PM >, Lisa Aguila 08/16/2024 07:20:36 AM >req Ayla rowley Tammy 08/16/2024 11:20:55 AM >Joie Wolf 08/16/2024 07:28:06 >86581, 54913, 64876 x3, Lisa Aguila 08/16/2024 11:27:08 AM > No precert required per [facility], insurance is active, confirmation scanned in, faxed to [facility] Referral Priority Urgent Medications Medication SIG (Take, Route, Fr equency, Duration) Notes Start Date End Date Status aspirin 325 mg 1 tab(s) orally once a day for 14 day(s) 08/22/2024 Active Problems Problem Type SNOMED Code ICD Code Onset Dates Problem Status W/U Status Risk Notes Problem 466239592 Hammer toe of left foot (M20.42) Active confirmed Problem 520977578 Hammer toe of right foot (M20.41) Active confirmed Problem 287635384 Bunion, right foot (M21.611) Active confirmed Problem 365747889 Mallet toe of right foot (M20.5X1) Active confirmed Problem 287394355 Mallet toe of left foot (M20.5X2) Active confirmed Encounters Encounter Location Date Provider Diagnosis [facility] [facility] [address] [place] [facility] [place] [address] 06/14/2024 Hollis Maldonado Mallet toe of right foot M20.5X1 ; Mallet toe of left foot M20.5X2 ; Hammer toe of right foot M20.41 ; Hammer toe of left foot M20.42 and Bunion, right foot M21.611 [facility] [facility] [address] [place] [address] 08/23/2024 Hollis Maldonado Mallet toe of right foot M20.5X1 ; Mallet toe of left foot M20.5X2 ; Hammer toe of right foot M20.41 ; Hammer toe of left foot M20.42 and Bunion, right foot M21.611 [place] [address] [place] [address] 06/20/2024 Hollis Maldonado [facility] [address] [place] [address] 08/13/2024 Hollis Maldonado [facility] [address] [place] [address] 08/20/2024 Hollis Maldonado Bunion, right foot M21.611 [facility] [address] [place] [address] 08/22/2024 Hollis Maldonado Encounter for other orthopedic aftercare Z47.89 Assessments Encounter Date Diagnosis (ICD Code) Assessment Notes Treatment Notes Treatment Clinical Notes Section Notes 06/14/2024 Mallet toe of right foot (ICD-10 - M20.5X1) Right hallux mallet toe deformity Bunion deformity [place] 06/14/2024 Mallet toe of left foot (ICD-10 - M20.5X2) Right hallux mallet toe deformity Bunion deformity [place] 08/20/2024 Bunion, right foot (ICD-10 - M21.611) 08/22/2024 Encounter for other orthopedic aftercare (ICD-10 - Z47.89) 08/23/2024 Mallet toe of right foot (ICD-10 - M20.5X1) Right hallux mallet toe deformity Bunion deformity [place] 08/23/2024 Mallet toe of left foot (ICD-10 - M20.5X2) Right hallux mallet toe deformity Bunion deformity [place] 06/14/2024 Hammer toe of right foot (ICD-10 - M20.41) Right hallux mallet toe deformity Bunion deformity [place] 08/23/2024 Hammer toe of right foot (ICD-10 - M20.41) Right hallux mallet toe deformity Bunion deformity [place] 06/14/2024 Hammer toe of left foot (ICD-10 - M20.42) Right hallux mallet toe deformity Bunion deformity [place] 06/14/2024 Bunion, right foot (ICD-10 - M21.611) Right hallux mallet toe deformity Bunion deformity [place] 08/23/2024 Hammer toe of left foot (ICD-10 - M20.42) Right hallux mallet toe deformity Bunion deformity [place] 08/23/2024 Bunion, right foot (ICD-10 - M21.611) Right hallux mallet toe deformity Bunion deformity [place] 08/30/2024 Other 06/14/2024 Other Patient examined and evaluated Interval x-rays obtained reviewed in detail discussed at length Patient be scheduled for surgical correction of the right forefoot All questions concerns were addressed Right hallux mallet toe deformity Bunion deformity [place] 08/23/2024 Other Patient examined and evaluated Interval x-rays obtained reviewed in detail discussed at length Patient be scheduled for surgical correction of the right forefoot All questions concerns were addressed Right hallux mallet toe deformity Bunion deformity [place]oes Plan Of Treatment Pending Test Test Name Order Date CBC with diff, BMP, EKG 06/14/2024 CBC with diff, BMP, EKG 08/23/2024 N[facility] - Foot, left 3v WB- 80011 06/14/2024 N[facility] - Foot, right 3v WB - 12165 06/14/20 N[facility] - Ankle, left 2v WB - 50067 06/14/20 NTH - Ankle, right 2v WB - 82921 024 Insurance Providers Payer Name Payer Address Payer Phone Subscriber Number Group Number Insured Name Patient Relationship to Insured Coverage Start Date Coverage End Date Medicaid [place] [address] [place] [address] [id number] FUNMI ESTES Self - patient is the insured
--- NOTE | 2025-04-10 07:42 | CA_ITS ---
Patient Name: FUNMI ESTES MR#: [id number] : 1990 Exam Date: 04/10/2025 Ordering Doctor: DR CARL CHILD . ECHOCARDIOGRAM REPORT PROCEDURE: CA ECHO DOPPLER COMPLETE INDICATIONS: Palpitations, Alcohol dependence COMPARISON: None. DESCRIPTION: COMPLETE ECHOCARDIOGRAM Real-time transthoracic echocardiography with 2D, M-mode, spectral and color flow Doppler performed. QUALITY: Technical quality was good. LEFT VENTRICLE: Normal chamber size. Normal left ventricular wall thickness. Global left ventricular systolic function is normal. LV EF: Calculated left ventricular ejection fraction is 59%. DIASTOLIC: Normal diastolic function. ATRIAL SEPTUM: LEFT ATRIUM: Normal chamber size. RIGHT ATRIUM: Normal chamber size. RIGHT VENTRICLE: Normal chamber size. Normal right ventricular systolic function. TRICUSPID VALVE: Normal mobility and thickness. No stenosis with trivial regurgitation. No evidence of pulmonary hypertension. RVSP 20 mmHg MITRAL VALVE: Normal mobility and thickness. No evidence of mitral valve stenosis. There is no mitral annular calcification. Trivial mitral regurgitation. AORTIC VALVE: Normal trileaflet appearance. No visible sclerosis. Normal leaflet mobility. No evidence of aortic valve stenosis. No aortic regurgitation. AORTIC ROOT: Normal diameter and appearance, measuring 3.2 cm. The ascending aorta is normal in size measuring 3.1 cm PULMONIC VALVE: Normal thickness and mobility. No stenosis. Trivial regurgitation. PERICARDIUM: No evidence of pericardial effusion. IVC: Collapses with inspiration. Normal size. PLEURA: CONCLUSION: 1. Normal ventricular size and systolic function. LVEF is estimated at 55 to 60%. 2. Normal diastolic function. 3. No significant valvular dysfunction. 4. Normal right-sided pressures. Adult Echocardiography Procedure Report Left Ventricle LVEDD (3.7 - 5.6 cm): 3.93 cm LVESD (2.2 - 4.0 cm): 2.74 cm LVIVS thickness (0.6 - 1.2 cm): 0.53 cm LVPW thickness (0.5 - 1.0 cm): 0.74 cm e': 0.15 m/s LVOT Max Gradient: 2.58 mm[Hg] LVOT Area (cm2): 0.80 m/s Peak Velocity (LVOT): 0.80 m/s LVOT Diameter 1.79 cm Left Ventricular Ejection Fraction: 58.54 % Left Atrium Left Atrium Systolic Dimension: 2.05 cm Mitral Valve Right Ventricle RV Internal Diastolic Dimension: 3.06 cm Aorta AO Root Diam: 3.16 cm Ascending Ao Diam: 3.13 cm Aortic Valve AoV Area (Peak Johnson): 2.19 cm2, 2.19 cm2 Peak Velocity(Antegrade Flow): 0.92 m/s Peak Gradient(Antegrade Flow): 3.37 mm[Hg] Tricuspid Valve Peak Velocity (Regurgitant Flow): 1.67 m/s, 2.05 m/s Pulmonic Valve Mean Gradient: 0.99 mm[Hg] Mean Velocity: 0.46 m/s Peak Velocity: 0.72 m/s, 0.82 m/s Peak Gradient: 2.05 mm[Hg], 2.72 mm[Hg] Right Atrium Right Atrium Systolic Pressure: 20.52 ml, 20.52 ml Dictated by: Adán Moody M.D. on 04/10/2025 at 17:35 Approved by: Adán Moody M.D. on 04/10/2025 at 17:39
--- NOTE | 2025-04-10 07:53 | XR_ITS ---
The [address] [address] Patient Name: FUNMI ESTES MRN: [id number] date: 1990 Sex: F Assigned Patient Location: [facility] Current Patient Location: [facility] Accession/Order Number: [id number] Exam Date: 04/10/2025 09:12 Report Date: 04/10/2025 09:14 At the request of: CARL CHILD MD Procedure: XR foreign body eye SADE ORBITAL FOREIGN BODY ASSESSMENT CLINICAL DATA: Foreign body eye screening prior to MRI. COMPARISON: None Lateral and Macdonald views were obtained. There are 2 piercings at the nose and possibly the lip the left. No orbital radiopaque foreign bodies are identified. Maxillary sinus disease is suspected. XR/XR foreign body eye SADE IMPRESSION: NO ORBITAL RADIOPAQUE FOREIGN BODIES. 2 PIERCINGS IN THE FIELD OF VIEW. Impression dictated by: Oriana Doherty M.D. 04/10/2025 9:14 AM Dictation Location: [place] [address] Electronically authenticated by: [id number] Y Date: 04/10/2025 09:14
[2025-04-10 09:49] LABS: Ammonia 18 umol/L (11-32)
[2025-04-10 09:59] LABS: INR 1.08; Partial Thromboplastin Time 30.3 sec (22.3-36.2); Prothrombin Time 11.4 sec (9.0-11.6)
[2025-04-10 10:05] LABS: Alanine Aminotransferase 147 U/L (14-59); Albumin Globulin Ratio 0.9; Albumin Level 3.8 g/dL (3.4-5.0); Alkaline Phosphatase 257 U/L (46-116); Amylase 43 U/L (25-115); Anion Gap 18.6; Aspartate Amino Transferase 281 U/L (15-37); BUN Creatinine Ratio 7.8; Bilirubin Total 0.9 mg/dL (0.2-1.0); Calcium 9.2 mg/dL (8.5-10.1); Carbon Dioxide 25.8 mmol/L (21.0-32.0); Chloride 98 mmol/L (98-107); Chol HDL Ratio 2.9; Cholesterol 360 mg/dL (<=200); Estimated GFR (African America >60 (>=60 mL/min/1.73m^2); Estimated GFR (Non-African Ame >60 (>=60 mL/min/1.73m^2); Free T3 3.06 pg/mL (2.18-3.98); Globulin 4.3 g/dL; Glucose 102 mg/dL (74-106); HDL Cholesterol 124 mg/dL (40-60); Potassium 4.4 mmol/L (3.5-5.1); Sodium 138 mmol/L (136-145); Total Protein 8.1 g/dL (6.4-8.2); Triglycerides 148 mg/dL (<=150); VLDL CHOLESTEROL 29.6 mg/dL
[2025-04-10 10:08] LABS: Basophils Percent Auto 0.9 % (0.2-2.0); Eosinophils Percent Auto 0.2 % (0.9-7.0); Hematocrit 38.5 % (36.0-48.0); Hemoglobin 13.2 g/dL (12.0-16.0); Immature Granulocytes Abs Auto 0.01 10^3/uL (0.00-0.03); Immature Granulocytes Pct Auto 0.2 % (0.0-0.5); Lymphocytes Percent Auto 22.7 % (20.5-60.0); Mean Corpuscular HGB Conc 34.3 g/dL (29.9-35.2); Mean Corpuscular Hemoglobin 34.8 pg (26.7-34.0); Mean Corpuscular Volume 101.6 fL (81.0-99.0); Mean Platelet Volume 10.3 fL (9.5-13.5); Monocytes Absolute Auto 0.7 10^3/uL (0.3-0.8); Monocytes Percent Auto 15.1 % (1.7-12.0); Neutrophils Absolute Auto 2.7 10^3/uL (1.4-6.5); Neutrophils Percent Auto 60.9 % (43.0-75.0); Platelet Count 90 10^3/uL (150-450); Red Blood Count 3.79 10^6/uL (4.20-5.40); Red Cell Distribution Width 12.7 % (11.0-15.0); White Blood Count 4.5 10^3/uL (4.0-11.0)
[2025-04-10 10:41] LABS: Estimated Average Glucose 94 mg/dL; Glycohemoglobin A1C 4.9 % (4.5-6.2)
[2025-04-11 04:07] LABS: Insulin 0.9 uIU/mL (2.6-24.9); Vitamin B12 1785 pg/mL (232-1245)
== END 2025-04-10 07:32 | disposition home or self-care (01) ==
LOC: RAD 07:31
PROVIDERS: PCP Family Medicine; Visit Provider Family Medicine
DX: Z01.818 Encounter for other preprocedural examination (principal); F10.20 Alcohol dependence, uncomplicated; R00.2 Palpitations; G40.909 Epilepsy, unspecified, not intractable, without status epilepticus; F32.9 Major depressive disorder, single episode, unspecified; F32.A Depression, unspecified; R73.09 Other abnormal glucose; D64.9 Anemia, unspecified
CPT/HCPCS: 36415; 70030; 80053; 80061; 82140; 82150; 82306; 82607; 82746; 83036; 83525; 83540; 83690; 84436; 84443; 84481; 85025; 85610; 85730; 93306

== ENCOUNTER 2025-04-15 08:53 | Outpatient (OUT) | payer MEDICAID, SELFPAY ==
--- OUTSIDE RECORDS SUMMARY | 2023-09-10 20:00 | XMS_ITS | Continuity of Care Document ---
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 Name Role Phone Tricia Hernandez Unavailable Unavailable Allergies, Adverse Reactions, Alerts Substance Reaction Status Criticality No Known Allergies Active No Inform ation Medications Medication Instructions Dosage Effective Dates (start - stop) Status Comments naltrexone 50 mg tablet take 1 tablet by oral route every day 50 MG - Active Wellbutrin XL 150 mg 24 hr tablet, extended release TAKE ONE TABLET BY MOUTH DAILY - Active Tylenol 325 mg tablet take 2 tablet by oral route every 8 hours as needed - Active Seroquel 50 mg tablet take 1 tablet by oral route every bedtime 50 MG - Active Lexapro 5 mg tablet take 1 tablet by oral route every day 5 MG - Active BIOTIN (unknown strength) Not Available - Active multivitamin tablet - Active Procedures Procedure Date Acute Detox [facility]iner Acute Detox [facility] Acute Detox [facility] [facility] DRUG TEST PRSMV DIR OPT OBS ASSAY OF BREATH ETHANOL Acute Detox [facility] [facility] Acute Detox [place] [facility] Acute Detox [facility] [facility] Acute Detox [place] [facility] Acute Detox [facility] [facility] URINE TEST DRUG TEST PRSMV DIR OPT OBS ASSAY OF BREATH ETHANOL ROUTINE VENIPUNCTURE Acute Detox [place] [facility] COVID-19 Antigen Test COVID-19 Antigen Test OFFICE/OUTPATIENT VISIT, EST URINE TEST Injection, Vivitrol Naltrexone, 1mg DRUG TEST PRSMV DIR OPT OBS OFFICE/OUTPATIENT VISIT, EST Injection, Vivitrol Naltrexone, 1mg DRUG TEST PRSMV DIR OPT OBS OFFICE/OUTPATIENT VISIT, EST OFFICE/OUTPATIENT VISIT, EST Moderna COVID Vaccine Admin Dose 2 Moderna COVID-19 Vaccine Moderna COVID Vaccine Admin Dose 1 Moderna COVID-19 Vaccine OFFICE/OUTPATIENT VISIT, EST Covid Testing [facility] OFFICE/OUTPATIENT VISIT, EST OFFICE/OUTPATIENT VISIT, EST PSYCH DIAGNOSTIC EVALUATION OFFICE/OUTPATIENT VISIT, EST CHIROPRACTIC MANIPULATION CHIROPRACTIC MANIPULATION CHIROPRACTIC MANIPULATION OFFICE/OUTPATIENT VISIT, NEW Advance Directives Directive Yes / No Effective Date File Name No Information Encounters Encounter Description Practice Location Reason(s) For Visit Diagnoses Date Provider Providers Copied on Encounter [facility], [address] [place] [address], [id number] , [place] tel: [phone] [facility] No Information 3 Klidas Tricia. [address] [place] [address], [id number] , [place]. tel: [phone] [facility], [address] [place] [address], [id number] , [place] tel: [phone] [facility] No Information 3 Klidas Tricia. [address] [place] [address], [id number] , [place]. tel: [phone] [facility], [address], [place], [id number] , [place] tel: [phone] [facility] No Information 0- 3 Jessica Lau. [address] [place], [address], [place]. tel: [phone] [facility], [address], [place], [id number] , [place] tel: [phone] [facility] No Information 3 Klidas Tricia. [address], [place], [id number] , [place]. tel: [phone] [facility], [address], [place], [id number] , [place] tel: [phone] [facility] No Information 3 Klidas Tricia. [address], [place], [id number] , [place]. tel: [phone] [facility], [address], [place], [id number] , [place] tel: [phone] [facility] No Information 3 Klidas Tricia. [address], [place], [id number] , [place]. tel: [phone] [facility], [address], [place], [id number] , [place] tel: [phone] [facility] No Information 0 3 Klidas Tricia. [address], [place], [id number] , [place]. tel: [phone] [facility], [address], [place], [id number] , [place] tel: [phone] [facility] No Information 3 Klidas Tricia. [address], [place], [id number] , [place]. tel: [phone] [facility], [address], [place], [id number] , [place] tel: [phone] [facility] No Information 3 Nadiyatayla Tricia. [address] [place] [address], [id number] , [place]. tel:[phone] [facility], [address], [place], [id number] , [place] tel: [phone] [facility] Encounter For Screening For Covid-19 2 Molly Rojas. [address], [place], [id number] , [place]. tel: [phone] OFFICE/OUTPA TIENT VISIT, [facility], [address] [place] [address], [id number] , [place] tel: [phone] [facility] boil (chief complaint) Body mass index [BMI] 20.0-20.9, adultLeft genital labial abscess 2 [facility] Nidhi. [address] [place] [address], [id number] , [place]. tel: [phone] OFFICE/OUTPA TIENT VISIT, [facility], [address], [place], [id number] , [place] tel: [phone] [facility] Dinah #3LG (chief complaint)U DS (chief complaint) Opioid dependence, uncomplicatedBody mass index [BMI] 19.9 or less, adult 1 Pavlock DO Owenton. [address] [place] [address], [id number] , [place]. tel: [phone] OFFICE/OUTPA TIENT VISIT, [facility], [address], [place], [id number] , [place] tel: [phone] [facility] Vivitrol (chief complaint)U DS (chief complaint) Opioid dependence, uncomplicatedBody mass index [BMI] 19.9 or less, adult 1 Pavlock DO Max. [address], [place], [id number] , [place]. tel: [phone] OFFICE/OUTPA TIENT VISIT, [facility], [address] [place] [address], [id number] , [place] tel: [phone] [facility] Vivitrol (chief complaint) Body mass index [BMI] 19.9 or less, adultOpioid dependence, uncomplicatedAlcoh ol abuse with intoxication with complication 1 [facility] DO Max. [address], [place], [id number] , [place]. tel: [phone] [facility], [address], [place], [id number] , [place] tel: [phone] [facility] No Information 1 [facility]. [address], [place], [id number] , [place]. tel: [phone] [facility], [address], [place], [id number] , [place] tel: [phone] [facility] No Information 0 [facility]. [address], [place], [id number] , [place]. tel: [phone] OFFICE/OUTPA TIENT VISIT, [facility], [address], [place], [id number] , [place] tel: [phone] [facility] depression (chief complaint) Post-traumatic stress disorder, chronic 0 [facility] DO [place]. [address], [place], [id number] , [place]. tel: [phone] [facility], [address], [place], [id number] , [place] tel: [phone] [facility] Encounter for screening for other viral diseases 0 [facility]. [address], [place], [id number] , [place]. tel: [phone] OFFICE/OUTPA TIENT VISIT, [facility], [address], [place], [id number] , [place] tel: [phone] [facility] Med Refills (chief complaint)d epression (chief complaint) Depression, unspecified depression typeBody mass index (BMI) 20.0-20.9, adult 0 Pavlock DO Max. [address], [place], [id number] , [place]. tel: [phone] [facility], [address], [place], [id number] , [place] tel: [phone] [facility] No Information 0 Pavlock DO Max. [address], [place], [id number] , [place]. tel: [phone] [facility], [address] [place] [address], [id number] , [place] tel: [phone] [facility] Post-traumatic stress disorder, chronicPersistent Depressive Disorder (Dysthymia) 0 Pavlock DO Max. [address] [place] [address], [id number] , [place]. tel: [phone] OFFICE/OUTPA TIENT VISIT, [facility], [address] [place] [address], [id number] , [place] tel: [phone] [facility] f/u meds (chief complaint)A nxiety (chief complaint) Body mass index (BMI) 19.9 or less, adultPost-traumati c stress disorder, chronic 0 Pavlock DO Max. [address] [place] [address], [id number] , [place]. tel: [phone] PSYCH DIAGNOSTIC EVALUATION [facility], [address] [place] [address], [id number] , [place] tel: [phone] [facility] Post-traumatic stress disorder, chronicPersistent Depressive Disorder (Dysthymia) 0 Araceli Juárez. [address] [place] [address], [id number] , [place]. tel: [phone] OFFICE/OUTPA TIENT VISIT, [facility], [address] [place] [address], [id number] , [place] tel: [phone] [facility] Follow up (chief complaint)d epression (chief complaint) Body mass index (BMI) 19.9 or less, adultDepression, unspecified depression type 0 Hemanth Giorgio. [address] [place] [address], [id number] , . tel: [phone] [facility], [address] [place] [address], [id number] , tel: [phone] [facility] lumbar spine (chief complaint)l umbar spine (chief complaint) Segmental and somatic dysfunction of lumbar regionRadiculopath y, lumbar regionSegmental and somatic dysfunction of cervical regionRadiculopath y, cervical region 0 Olayinka Ji. [address] [place] [address], [id number] , . tel: [phone] [facility], [address] [place] [address], [id number] , tel: [phone] [facility] lumbar spine (chief complaint)l umbar spine (chief complaint) Segmental and somatic dysfunction of lumbar regionRadiculopath y, lumbar regionSegmental and somatic dysfunction of cervical regionRadiculopath y, cervical region 0 Olayinka Ji. [address] [place] [address], [id number] , . tel: [phone] [facility], [address] [place] [address], [id number] , tel: [phone] [facility] lumbar spine (chief complaint)l umbar spine (chief complaint) Segmental and somatic dysfunction of lumbar regionRadiculopath y, lumbar regionSegmental and somatic dysfunction of cervical regionRadiculopath y, cervical region 0 0 Olayinka Ji. [address] [place] [address], [id number] , . tel: [phone] OFFICE/OUTPA TIENT VISIT, [facility], [address] [place] [address], [id number] , tel: [phone] [facility] EST CARE (chief complaint) Body mass index (BMI) 19.9 or less, adultAlcohol abuse with intoxication with complicationModera te protein-calorie malnutritionHead liceDepression, unspecified depression typeHistory of pancreatitisAlcoho lic polyneuropathy 0 Imani Haq. [address] [place] [address], [id number] , [place]. tel:[phone] Family History Family Member Type Diagnosis Age At Onset Sister Problem Mental illness Father Problem (finding) depression Father Problem Mental illness Father Problem (finding) alcoholism Mother Problem Mental illness Mother Problem (finding) depression Sister Problem malignant neopla sm of breast in first degree relative Father Problem (finding) malignant neoplasm of l lily Mother Problem (finding) alcoholism Immunizations Vaccine Date Status Comments Moderna COVID administered Source: New Im munization Record Moderna COVID administered Source: New Im munization Record Payers Payer name Insurance type Covered democrat ID Authoriza tijerardo(s) BH Anthem Medicaid [id number] [place] [employer] 190 [id number] Medicaid Wrap - [facility] [id number] [place] [employer] 190 [id number] Medicaid Wrap - [facility] [id number] Social History Type Description Quantity Date Captured Comments Sex Female Smoking Status No Information Sexual Orientation Straight or heterosexual Gender Identity Female Chief Complaint And Reason For Visit No Information Reason For Referral Reason For Referral No Information Plan Of Treatment Date Type Action Status Goal Tdap. Due on due Goal Depression screening. Due on due Goal Influenza vaccine. Due on due Goal RLP. Due on due Goal Tobacco cessation counseling completed Goal Dietary management education , guidance, and counseling completed Goal Tobacco cessation counseling completed Goal Tobacco cessation counseling completed Goal Dietary management education , guidance, and counseling completed Goal Dietary management education , guidance, and counseling completed Goal Tobacco cessation counseling completed Goal Dietary management education , guidance, and counseling completed Goal Tobacco cessation counseling completed Goal Dietary management education , guidance, and counseling completed Goal Tobacco cessation counseling completed Goal Tobacco cessation counseling completed Goal Dietary management education , guidance, and counseling completed Goal Dietary management education , guidance, and counseling completed Goal Tobacco cessation counseling completed History Of Present Illness Encounter Date Complaint History Of Prese nt Illness boil Patient is in of [facility] for a boil on her left labia. C/O increased discomfort over the last 3 days. Is having difficulty working due to the discomfort. Will schedule annual exam once boil has resolved. Dinah #3LG here for Vivbitr ol #3 to LG. Denies any problems with cravings. Goes to [facility] for therapy- states is going well. denies other problems. Denies any problems with previous injection site. !st needle clogged, 2nd needle used. Pt. tolerated well, to RUOG.Hannah Nicole RN. Pt states doing well not having any new problems ,above was reviewed and agreed with [facility] UDS results +TCA Neg HCGB. KELECHI Nicole Vivitrol Pt here for Estrellita trol#2RG, labs due 01/19. Pt denies cravings or issues with last injection site. Pt attends counseling at [facility] in [place]. Pt denies any other issues or concerns. KELECHI HopperVivitrol#2 given in RUOQ with 2 needle, pt tolerated well. KELECHI Hopper Pt states doing well not having any new problems ,above was reviewed and agreed with [facility] UDS UDS-Negative. Michelle Robertson RN Vivitrol Pt here to start Vivitrol.Pt states she did have one dose on 07/06/21 at [facility]. DOC-Heroin(IV) last use 06/18/21, states she overdosed on this date. 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 Pt denies any cravings or issues with last injection site. Pt attends counseling at [facility] [place]. Pt denies any other issues or concerns. KELECHI Hopper ,above was reviewed and agreed with [facility] depression There is improve ment of initial symptoms. The patient reports functioning as not difficult at all. The patient does not present with compulsive thoughts, decreased need for sleep, depressed mood, fatigue, feelings of guilt, paranoia or poor judgment. The patient's relieving factors are a good response to medication (wellbutrin). The patient denies any chronic pain, headache, irritability, nausea, sweating, trembling, urinary frequency, vomiting and weight gain. Med Refills Pt here today fo r medication refills. PT states medications are working well for her. No other issues or concernsTGrodjd FLORENTINO depression This is a follow up visit. There is improvement of initial symptoms. The patient reports functioning as not difficult at all. The patient does not present with anxious/fearful thoughts, compulsive thoughts, decreased need for sleep, depressed mood, fatigue, paranoia, poor judgment or racing thoughts. The patient's relieving factors are medication. The depression is associated with weight gain. The patient denies any chronic pain, headache, irritability, nausea, sweating, trembling, urinary frequency and vomiting. f/u meds Pt here for f/u and medication refills. Pt c/o that Seroquel is making her tired, requesting lower dose. Pt needs refills on Folic Acid, Seroquel and Wellbutrin. Pt denies any other issues or concerns. Alyssia LORENZ Anxiety This is a follow up visit. There is improvement of initial symptoms. The patient reports functioning as somewhat difficult. The patient presents with anxious/fearful thoughts, diminished interest or pleasure and fatigue but denies compulsive thoughts, decreased need for sleep, depressed mood, difficulty concentrating, difficulty falling asleep, difficulty staying asleep or excessive worry. The Anxiety is not with alcohol use, conflict or stress or drug use. The patient denies any chronic pain, headache, irritability, nausea, sweating, trembling, urinary frequency, vomiting and weight gain. Additional information: as noted above PT is getting better. depression This is a follow up visit. There is continuation of initial symptoms. The patient reports functioning as somewhat difficult. The patient presents with anxious/fearful thoughts, decreased need for sleep, depressed mood, difficulty concentrating, difficulty falling asleep, difficulty staying asleep, diminished interest or pleasure, loss of appetite, poor judgment and restlessness. The patient's risk factors include drug abuse and unemployment. The patient's symptoms are not relieved by medications. The patient denies any chronic pain, headache, irritability, nausea, sweating, trembling, urinary frequency, vomiting and weight gain. Follow up Pt here today to follow up with Dr. Hemanth orlando on 12/05. Pt states she never got the B1 medication or the Seroquel. Pt states she is still having problems with sleeping. Pt states she has mind racing at night & now she has a new roommate that stays up on her phone all night and talks. Pt states she did get the Nix treatment and has treated with that and has no more issues regarding that. PHQ indicates moderate severe depression. 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 lumbar spine pt reports being able to walk a little easier since first visit. lumbar spine lumbar spine C/O low back and neck pain for last several months along with pain/numbness in both legs from knee down and numbness/tingling in fingers b/l. Currently undergoing tests with family docs with no dx other than MS ruled out. Pt in first week of sobriety and is having high levels of anxiety and depression.Sx are the result of regular ADL'S. No specific injury or trauma is noted. Pain is primarily at L3-L5 PVM on the Rt. & Lt. and extends to the SI joint, Rt. & Lt. Pain across neck and shoulders extending into mid scapular region Pain is local, dull, and with radiation to the upper and lower extremities. Pt has lost significant muscle mass in legs.Pain interferes with regular ADL's. Increase in pain with movement/ROM and ADL'S. Some decrease in symptoms with rest. Pain pattern is as prior times. lumbar spine EST CARE Patient here to establish care. Pt states that she needs checked for head lice, says someone at [facility] told her to be checked. Pt states that her boyfriend did one application of lice treatment for her about a month ago, and that she has not had any issues since the treatment. Pt states that she just needs a check-up today. Pt has been having problems with her legs, says she was falling at home and feeling week, c/o decreased appetite, this went on for about a month. Pt says she was evaluated in ED for these issues about a month ago, she does not remember what all happened after the ED visit. Denies any other problems or issues. PHQ moderate depression. SRowe RnAgree with above. Pt here alone, chronically ill appearing, pale, poor hygiene. Brings paperwork from recent hospitalization. Pt very vague with story leading up to where she is now, including ER visit/hospital stay. Admits to poor appetite, short term memory issues, and numbness of feet and fingers. Denies recent drug abuse and only admits to 2- 24oz beers on average . Does admit to feeling depressed. Denies thoughts of hurting herself or others. Natasha Diallo NP. Functional Status Date Functional Assessmen t No Information Instructions Date Instruction Additional Infor dianne Discussed abscess in detail and patient needs to have I&D procedure. Unable to complete procedure in office. Referred patient to the Emergency Room. Abscess is 3-4 cm and extends from mid-left labia down to rectum. Positive erythema noted and is very tender to the touch. Patient states understanding and plans to go to the ER as soon as she leaves our office. Patient does not have a fever at this time. Related to Left genital labial abscess Dietary management e ducation, guidance, and counseling Related to Body mass index [BMI] 20.0-20.9, adult Giving encouragement to exercise Related to Body mass index [BMI] 20.0-20.9, adult Dietary needs education Related to Body mass index [BMI] 19.9 or less, adult Giving encouragement to exercise Related to Body mass index [BMI] 19.9 or less, adult Dietary management e ducation, guidance, and counseling Related to Body mass index [BMI] 19.9 or less, adult Giving encouragement to exercise Related to Body mass index [BMI] 19.9 or less, adult Dietary management e ducation, guidance, and counseling Related to Body mass index [BMI] 19.9 or less, adult Dietary management e ducation, guidance, and counseling Related to Body mass index (BMI) 20.0-20.9, adult Giving encouragement to exercise Related to Body mass index (BMI) 20.0-20.9, adult Dietary management e ducation, guidance, and counseling Related to Body mass index (BMI) 19.9 or less, adult Giving encouragement to exercise Related to Body mass index (BMI) 19.9 or less, adult Dietary management e ducation, guidance, and counseling Related to Body mass index (BMI) 19.9 or less, adult Dietary management e ducation, guidance, and counseling Related to Body mass index (BMI) 19.9 or less, adult Assessments Type Assessment Date No Information Goals Health Concern Goal Type Priority Status Date Patient needs education to manage opioid dependence. Patient will state factors necessary to manage opioid dependence. Patient Goal Patient Care Teams Name Effective Dates (start - stop) Status Members No Information
--- NOTE | 2025-04-15 08:55 | MR_ITS ---
The [address] [address] Patient Name: FUNMI ESTES MRN: [id number] date: 1990 Sex: F Assigned Patient Location: MRI Current Patient Location: MRI Accession/Order Number: [id number] Exam Date: 04/15/2025 10:10 Report Date: 04/15/2025 10:22 At the request of: CARL CHILD MD Procedure: MR head/brain wo con EXAMINATION: MRI OF THE BRAIN WITHOUT CONTRAST CLINICAL HISTORY: alcohol dependence, uncomplicated F10.20. Seizures. COMPARISON: 11/14/2019 TECHNIQUE: Multiecho, multiplanar imaging of the brain was performed without enhancement. The ventricles are normal in size and position. Mild patchy foci of increased T2 and FLAIR signal are visualized within the white matter bilaterally, predominantly posterior in location. Some of these were seen on the prior however comparison to that exam is limited by motion at that time. This is nonspecific though given patient's age, demyelination is in the differential along with microvascular disease. There are no additional areas of abnormal signal intensity within the supra- or infratentorial brain. No restricted diffusion is identified to suggest a recent ischemic event. There are no extra-axial collections or mass effect. Bilateral maxillary mucosal thickening is seen. The remaining imaged paranasal sinuses and mastoid air cells are clear. MR/MR head/brain wo con IMPRESSION: MINOR NONSPECIFIC WHITE MATTER CHANGE, DESCRIBED. CLINICAL CORRELATION IS SUGGESTED. CHRONIC MAXILLARY SINUSITIS. NO ACUTE INTRACRANIAL FINDINGS. Impression dictated by: Oriana Doherty M.D. 04/15/2025 10:22 AM Dictation Location: [place] [address] Electronically authenticated by: [id number] Y Date: 04/15/2025 10:22
== END 2025-04-15 08:54 | disposition home or self-care (01) ==
LOC: MRI 08:53
PROVIDERS: PCP Family Medicine; Visit Provider Family Medicine
DX: F10.20 Alcohol dependence, uncomplicated (principal); J32.0 Chronic maxillary sinusitis
CPT/HCPCS: 70551

== ENCOUNTER 2025-06-25 13:39 | Outpatient (OUT) | payer MEDICAID, SELFPAY ==
--- OUTSIDE RECORDS SUMMARY | 2023-09-10 20:00 | XMS_ITS | Continuity of Care Document ---
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 Name Role Phone Tricia Hernandez Unavailable Unavailable [...] - Active Procedures Procedure Date Acute Detox Xm1 Tank Driver Acute Detox Xm1 Tank Driver Acute Detox Xm1 Tank Driver DRUG TEST PRSMV DIR OPT OBS ASSAY OF BREATH ETHANOL Acute Detox Xm1 Tank Driver Acute Detox Xm1 Tank Driver Acute Detox Xm1 Tank Driver Acute Detox Xm1 Tank Driver Acute Detox Xm1 Tank Driver URINE TEST DRUG TEST PRSMV DIR OPT OBS ASSAY OF BREATH ETHANOL ROUTINE VENIPUNCTURE Acute Detox Xm1 Tank Driver COVID-19 Antigen Test COVID-19 Antigen Test OFFICE/OUTPATIENT [...] Diagnoses Date Provider Providers Copied on Encounter [facility], [address] [place] [address], [id number] , [place] tel: [phone] [facility] No Information 3 Klidas Tricia. [address] [place] [address], [id number] , [place]. tel: [phone] [facility], [address] [place] [address], [id number] , [place] tel: [phone] [facility] No Information 3 Klidas Tricia. [address] [place] [address], [id number] , [place]. tel: [phone] [facility], [address] [place], [place], [id number] , [place] tel: [phone] [facility] No Information 0- 3 Jessica Lau. [address] [place], [address], [place]. tel: [phone] [facility], [address] [place], [place], [id number] , [place] tel: [phone] [facility] No Information 3 Klidas Tricia. [address] [place], [place], [id number] , [place]. tel: [phone] [facility], [address] [place], [place], [id number] , [place] tel: [phone] [facility] No Information 3 Klidas Tricia. [address] [place], [place], [id number] , [place]. tel: [phone] [facility], [address] [place], [place], [id number] , [place] tel: [phone] [facility] No Information 3 Klidas Tricia. [address] [place], [place], [id number] , [place]. tel: [phone] [facility], [address] [place], [place], [id number] , [place] tel: [phone] [facility] No Information 0 3 Klidas Tricia. [address] [place], [place], [id number] , [place]. tel: [phone] [facility], [address] [place], [place], [id number] , [place] tel: [phone] [facility] No Information 3 Klidas Tricia. [address] [place], [place], [id number] , [place]. tel: [phone] [facility], [address] [place], [place], [id number] , [place] tel: [phone] [facility] No Information 3 Nadiyatayla Tricia. [address] [place] [address], [id number] , [place]. tel:[phone] [facility], [address] [place], [place], [id number] , [place] tel: [phone] [facility] Encounter For Screening For Covid-19 2 Molly Rojas. [address] [place], [place], [id number] , [place]. tel: [phone] OFFICE/OUTPA TIENT VISIT, [facility], [address] [place] [address], [id number] , [place] tel: [phone] [facility] boil (chief complaint) Body mass index [BMI] 20.0-20.9, adultLeft genital labial abscess 2 Pino [facility] Nidhi. [address] [place] [address], [id number] , [place]. tel: [phone] OFFICE/OUTPA TIENT VISIT, [facility], [address] [place], [place], [id number] , [place] tel: [phone] [facility] Dinah #3LG (chief complaint)U DS (chief complaint) Opioid dependence, uncomplicatedBody mass index [BMI] 19.9 or less, adult 1 Pavlock DO [place]. [address] [place] [address], [id number] , [place]. tel: [phone] OFFICE/OUTPA TIENT VISIT, [facility], [address] [place], [place], [id number] , [place] tel: [phone] [facility] Vivitrol (chief complaint)U DS (chief complaint) Opioid dependence, uncomplicatedBody mass index [BMI] 19.9 or less, adult 1 Pavlock DO Max. [address] [place], [place], [id number] , [place]. tel: [phone] OFFICE/OUTPA TIENT VISIT, [facility], [address] [place] [address], [id number] , [place] tel: [phone] [facility] Vivitrol (chief complaint) Body mass index [BMI] 19.9 or less, adultOpioid dependence, uncomplicatedAlcoh ol abuse with intoxication with complication 1 [facility] [address] [place], [place], [id number] , [place]. tel: [phone] [facility], [address] [place], [place], [id number] , [place] tel: [phone] [facility] No Information 1 [facility] Colby. [address] [place], [place], [id number] , [place]. tel: [phone] [facility], [address] [place], [place], [id number] , [place] tel: [phone] [facility] No Information 0 [facility] Colby. [address] [place], [place], [id number] , [place]. tel: [phone] OFFICE/OUTPA TIENT VISIT, [facility], [address] [place], [place], [id number] , [place] tel: [phone] [facility] depression (chief complaint) Post-traumatic stress disorder, chronic 0 [facility] [place]. [address] [place], [place], [id number] , [place]. tel: [phone] [facility], [address] [place], [place], [id number] , [place] tel: [phone] [facility] Encounter for screening for other viral diseases 0 [facility] Colby. [address] [place], [place], [id number] , [place]. tel: [phone] OFFICE/OUTPA TIENT VISIT, [facility], [address] [place], [place], [id number] , [place] tel: [phone] [facility] Med Refills (chief complaint)d epression (chief complaint) Depression, unspecified depression typeBody mass index (BMI) 20.0-20.9, adult 0 Pavlock DO Max. [address] [place], [place], [id number] , [place]. tel: [phone] [facility], [address] [place], [place], [id number] , [place] tel: [phone] [facility] No Information 0 Pavlock DO Max. [address] [place], [place], [id number] , [place]. tel: [phone] [facility], [address] [place] [address], [id number] , [place] tel: [phone] [facility] Post-traumatic stress disorder, chronicPersistent Depressive Disorder (Dysthymia) 0 Pavlock DO Max. [address] [place] [address], [id number] , [place]. tel: [phone] OFFICE/OUTPA TIENT VISIT, [facility], [address] [place] [address], [id number] , [place] tel: [phone] [facility] f/u meds (chief complaint)A nxiety (chief complaint) Body mass index (BMI) 19.9 or less, adultPost-traumati c stress disorder, chronic 0 Pavlock DO Max. [address] [place] [address], [id number] , [place]. tel: [phone] PSYCH DIAGNOSTIC EVALUATION [facility], [address] [place] [address], [id number] , [place] tel: [phone] [facility] Post-traumatic stress disorder, chronicPersistent Depressive Disorder (Dysthymia) 0 Araceli Juárez. [address] [place] [address], [id number] , [place]. tel: [phone] OFFICE/OUTPA TIENT VISIT, [facility], [address] [place] [address], [id number] , [place] tel: [phone] [facility] Follow up (chief complaint)d epression (chief complaint) Body mass index (BMI) 19.9 or less, adultDepression, unspecified depression type 0 Hemanth Giorgio. [address] [place] [address], [id number] , . tel: [phone] [facility], [address] [place] [address], [id number] , tel: [phone] [facility] lumbar spine (chief complaint)l umbar spine (chief complaint) Segmental and somatic dysfunction of lumbar regionRadiculopath y, lumbar regionSegmental and somatic dysfunction of cervical regionRadiculopath y, cervical region 0 Olayinka Ji. [address] [place] [address], [id number] , . tel: [phone] [facility], [address] [place] [address], [id number] , tel: [phone] [facility] lumbar spine (chief complaint)l umbar spine (chief complaint) Segmental and somatic dysfunction of lumbar regionRadiculopath y, lumbar regionSegmental and somatic dysfunction of cervical regionRadiculopath y, cervical region 0 Olayinka Ji. [address] [place] [address], [id number] , . tel: [phone] [facility], [address] [place] [address], [id number] , tel: [phone] [facility] lumbar spine (chief complaint)l umbar spine (chief complaint) Segmental and somatic dysfunction of lumbar regionRadiculopath y, lumbar regionSegmental and somatic dysfunction of cervical regionRadiculopath y, cervical region 0 0 Olayinka Ji. [address] [place] [address], [id number] , . tel: [phone] OFFICE/OUTPA TIENT VISIT, [facility], [address] [place] [address], [id number] , tel: [phone] [facility] EST CARE (chief complaint) Body mass index (BMI) 19.9 or less, adultAlcohol abuse with intoxication with complicationModera te protein-calorie malnutritionHead liceDepression, unspecified depression typeHistory of pancreatitisAlcoho lic polyneuropathy 0 Imani Haq. [address] [place] [address], [id number] , [place]. tel:+ [phone] Family History Family Member Type Diagnosis Age [...] Record Payers Payer name Insurance type Covered green party ID Authoriza tijerardo(s) BH Anthem Medicaid 0223 [id number] [place] [employer] 190 [id number] Medicaid Wrap - [facility] [id number] [place] [employer] 190 [id number] Medicaid Wrap - [facility] [id number] Social History Type Description Quantity Date Captured [...] nt Illness boil Patient is in of [facility] for a boil on her left labia. C/O increased discomfort over the last 3 days. Is having difficulty working due to the discomfort. Will schedule annual exam once boil has resolved. Dinah #3LG here for Vivbitr ol #3 to LG. Denies any problems with cravings. Goes to [facility] for therapy- states is going well. denies other problems. Denies any problems with previous injection site. !st needle clogged, 2nd needle used. Pt. tolerated well, to RUOG.Hannah Nicole RN. Pt states doing well not having any new problems ,above was reviewed and agreed with [facility] UDS results +TCA Neg HCGB. KELECHI Nicole Vivitrol Pt here for Estrellita trol#2RG, labs due 01/19. Pt denies cravings or issues with last injection site. Pt attends counseling at [facility] in [place]. Pt denies any other issues or concerns. KELECHI HopperVivitrol#2 given in RUOQ with 2 needle, pt tolerated well. KELECHI Hopper Pt states doing well not having any new problems ,above was reviewed and agreed with [facility] UDS UDS-Negative. Michelle Robertson RN Vivitrol Pt here to start Vivitrol.Pt states she did have one dose on 07/06/21 at [facility]. DOC-Heroin(IV) last use 06/18/21, states she overdosed on this date. 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 Pt denies any cravings or issues with last injection site. Pt attends counseling at [facility] [place]. Pt denies any other issues or concerns. [...] well for her. No other issues or concernsTGroddj FLORENT[place] depression This is a follow up [...] severe depression. 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 Pt [...]
--- OUTSIDE RECORDS SUMMARY | 2025-06-25 13:41 | XMS_ITS | Clinical Summary ---
Author Organization [facility] Address [address] [place] [address] Care Team Providers Care City Detective Name Role Phone Unavailable Primary Care Provider Unavailabl e Social History Tobacco Use Types Packs/Day Years Used Date Smoking Tobacco: Never Assessed Comments Unknown Sex and Gender Information Value Date Recorded Sex Assigned at Not on file Legal Sex Female 12:21 AM EDT Gender Identity Not on file Sexual Orientation Not on file Plan of Treatment Health Maintenance Due Date Last Done Comments Depression Screening 2000 Varicella Vaccines (1 of 2 - 13+ 2-dose series) 02/07/2001 Hepatitis B Vaccines (1 of 3 - 19+ 3-dose series) 02/07/2007 Pap Smear 02/07/2009 Adult Tetanus 02/07/2010 Cervical Cancer Screening 02/07/2018 HPV/Cotest 02/07/2018 Influenza Vaccine (#1) 2025 Zoster Vaccines (1 of 2) 02/07/2038 HIB Vaccines Aged Out No longer eligi ble based on patient's age to complete this topic HPV Vaccines Aged Out No longer eligi ble based on patient's age to complete this topic IPV Vaccines Aged Out No longer eligi ble based on patient's age to complete this topic Meningococcal B Vaccine Aged Out No l onger eligible based on patient's age to complete this topic Meningococcal Vaccine Aged Out No katja nery eligible based on patient's age to complete this topic Pneumococcal Vaccine: Pediat rics (0 to 5 Years) and At-Risk Patients (6 to 64 Years) Aged Out No longer eligible b ased on patient's age to complete this topic Rotavirus Vaccines Aged Out No longer eligible based on patient's age to complete this topic Insurance [facility] MEDICAID
--- OUTSIDE RECORDS SUMMARY | 2025-06-25 13:41 | XMS_ITS | Encounter Summary ---
Author Organization [facility] Address [address] [place] [address] Care Team Providers Care Weaver Axminster Name Role Phone Landon Carmen MD Primary Care Provider [phone] Encounter Details Date Type Department Care Team (Late st Contact Info) Description 06/17/2025 Telephone [facility] [address] [place] [phone] Marine Mckinley RN Social History Tobacco Use Types Packs/Day Years Used Date Smoking Tobacco: Never Assessed Comments:Positive tobacco us e Alcohol Use Standard Drinks/Week Comments Not Asked 0 (1 standard drink = 0.6 oz pur e alcohol) recovering alcoholic Comments Unknown Sex and Gender Information Value Date Recorded Sex Assigned at Not on file Legal Sex Female 11:34 PM EDT Gender Identity Not on file Sexual Orientation Not on file documented as of this encounter Miscellaneous Notes * Telephone Encounter - Henrietta Solis MA - 06/18/2025 8:43 AM EDT Called and spoke with the patient, she stated she is not having any issues or concerns but that it 'has been a long time' she needs to get her IUD out as it is overdue and she is thinking/would like to discuss a different route of control. Patient stated she would like to discuss tubal ligation. Patient was informed the precert would be sent after her office visit, she can discuss the tubalwith Dr. William at the visit as well. Patient voiced understanding and scheduled an appointment for 07/08/25 @ 1 p.m. she was advised to arrive 5 minutes early with her updated insurance cards and stated she was aware of our office location. * Telephone Encounter - Marine Mckinley RN - 06/17/2025 1:32 PM EDT Patient called and LM on OB Nurse Line @ [phone] asking if we are accepting new patients through Dr. William. Asking for a return call to P# on file. documented in this encounter Plan of Treatment Upcoming Encounters Date Type Department Care Team (Late st Contact Info) Description 07/08/2025 1:00 PM EDT Office Visit [facility] [address] [place] [phone] Nhi William MD [address] [place] [address] documented as of this encounter Visit Diagnoses Not on filedocumented in this encounter Care Teams Weaver Axminster Relationship Specialty Start Date End Date Landon Carmen MD PCP - General Family Medicine 06/15/23 documented as of this encounter
--- OUTSIDE RECORDS SUMMARY | 2025-06-25 13:41 | XMS_ITS | Clinical Summary ---
Author Organization [facility] Address [address] [place] [address] Care Team Providers Care Accounts Receivable Collector Name Role Phone Landon Carmen MD Primary Care Provider [phone] Encounters Date Type Department Care Team Description 06/17/2025 Telephone [facility] [address] [place] [address] Marine Mckinley RN 04/16/2025 Telephone [facility] [address] [facility] [address] [place] [address] Unallocated, Christiana Huitron MD from Last 3 Months Family History Medical History Relation Name Comments [...] Orientation Not on file Plan of Treatment Upcoming Encounters Date Type Department Care Team (Late st Contact Info) Description 07/08/2025 1:00 PM EDT Office Visit [facility] [address] [place] [address] Nhi William MD [address] [place] [address] Insurance [facility] MEDICAID [place] Care Teams Accounts Receivable Collector Relationship Specialty Start Date End Date Landon Carmen MD PCP - General Family Medicine 06/15/23
--- OUTSIDE RECORDS SUMMARY | 2025-06-25 13:41 | XMS_ITS | Encounter Summary ---
Author Organization [facility] Address [address] [place] [address] Care Team Providers Care Cut Off Sawyer Name Role Phone Landon Carmen MD Primary Care Provider [phone] Encounter Details Date Type Department Care Team (Late Contact Info) Description 07/05/2023 [facility] [address] [place] [phone] Any Murguia PA [address] [place], [facility] Social History Tobacco Use Types Packs/Day [...] as of this encounter Plan of Treatment Upcoming Encounters Date Type Department Care Team (Late Contact Info) Description 07/08/2025 1:00 PM EDT Office Visit [facility] [address] [facility] [address] [place] [phone] Nhi William MD [address] [place] [address] documented as of this encounter Visit Diagnoses Not on filedocumented in this encounter Care Teams Cut Off Sawyer Relationship Specialty Start Date End Date Landon Carmen MD PCP - General Family Medicine 06/15/23 documented as of this encounter
--- OUTSIDE RECORDS SUMMARY | 2025-06-25 13:41 | XMS_ITS | Clinical Summary ---
Author Organization [facility] Address [address], [address] [place] [address] Care Team Providers Care Stave Cutter Name Role Phone Landon Carmen MD Primary Care Provider [phone] Allergies No known active allergies Medications propranolol [...] Vaccine (2023-2 5 season) 2024 Flu vaccine (#1) 05/31/2025 HIV screen Completed 11/22/2014 Hepatitis C screen Completed 11/22/2014 HPV vaccine (No Doses Required) Completed Hepatitis A vaccine Aged Out No longe [...] Cellular and Tissue-Based Products (HCT/P). Performed by [facility], [address] [place] [address],[place] [id number] [email or web address], Adriano Amin MD - Lab. Director 11/22/2014 8:48 AM EST 11/22/2014 9:56 AM EST us Unknown Provider Result HEMATOLOGY ORDERABLES Fi nal Result Performing Organization Address City/[facility]/ZIP Co de Phone Number PO LAB * [...] ORDERABLES Fin al Result Performing Organization Address City/[facility]/ZIP Co de Phone Number [facility] from Last 3 Months or Most Recently Relevant to Health Maintenance Insurance [facility] MEDICAID Care Teams Stave Cutter Relationship Specialty Start Date End Date Landon Carmen MD [address] [phone] PCP - General 07/19/15
--- NOTE | 2025-06-25 13:50 | CT_ITS ---
The [address] [address] Patient Name: FUNMI ESTES MRN: [id number] date: 1990 Sex: F Assigned Patient Location: CT Current Patient Location: CT Accession/Order Number: [id number] Exam Date: 06/25/2025 13:59 Report Date: 06/25/2025 14:28 At the request of: CARL CHILD MD Procedure: CT sinus wo con CT PARANASAL SINUSES WITHOUT CONTRAST: CLINICAL HISTORY: Sinusitis COMPARISON: None TECHNIQUE: Contiguous axial unenhanced images were obtained through the paranasal sinuses. Coronal reconstructions were also performed. This CT exam was performed using one or more following dose reduction techniques: Automated exposure control, adjustment of the mA and/or kV according to patient size, or use of iterative reconstruction technique. FINDINGS: Frontal sinuses are clear. Minimal ethmoid sinus disease. Sphenoid sinuses are clear. Mild mucoperiosteal thickening involving the right maxillary sinus. Left maxillary sinus appears patent. No air-fluid levels. No bony destruction. Ostiomeatal complexes appear patent. Nasal septum is relatively midline. No soft tissue swelling. Intraorbital contents appear unremarkable. Nasopharynx appears unremarkable. CT/CT sinus wo con IMPRESSION: MILD PANSINUSITIS WITHOUT AGGRESSIVE FEATURES. Impression dictated by: Rodolfo Moreno Jr., D.O. 06/25/2025 2:28 PM Dictation Location: [place] [address] Electronically authenticated by: [id number] Y Date: 06/25/2025 14:28
--- OUTSIDE RECORDS SUMMARY | 2025-06-25 14:11 | XMS_ITS | CCD ---
Author Organization [facility] Care Team Providers Care Circuit Board Drafter Name Role Phone ONI CARMICHAEL Admitting Unavailable [...] Unavailable MD Carl Child Primary Care Provider [phone] Ruthann [facility] Xochilt Awan Emergency Provider PROVIDER, UNKNOWN Attending Unavailable PROVIDER, UNKNOWN Admitting Unavailable MD Carl Child Primary Care Provider [phone] DO Roby Thakkar Emergency Provider [phone] MD Gem Velasco Admit Provider MD Gem Velasco Attending Provider MD Tyrone Barron Attending Provider MD Gregory Raya Other Provider Gem Velasco Admitting Unavailable Tyrone Barron Attending Unavailable Carl Child Primary Care Unavailable Gregory Raya Consulting Unavailable Carl Child MD Primary Care Provider [phone] ERICA MALDONADO Admitting Unavailable ERICA MALDONADO Attending Unavailable ERICA MALDONADO Admitting Unavailable ERICA MALDONADO Attending Unavailable CARL CHILD Primary Care Unavailable Allergies Allergy Classification Reported Allergen(s) Allergy Type Date of Onset Reaction(s) Facility (1 source) Penicillin Drug Allergy [facility] Repository Medications Current Medications Medication Drug [...] IntraVENous, at 100 mL/hr, CONTINUOUS, Starting on [facility] 08/23/24 at 0800, Pre-op (day of surgery) [...] 650 mg, Oral, ONCE, 1 dose, On [facility] 08/23/24 at 0800, Maximum dose of acetaminophen [...] 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 In such cases, another test should be performed with a new specimen in 48-72 hours. If early is suspected clinically in this setting, correlation with quantitative serum b-hCG level is suggested. [facility] has confirmed the use of plasma for this test. This has not been cleared or approved by the U.S. Food and Drug Administration. The FDA has determined that such clearance is not necessary. Performed By: #### U HCG #### [facility] [address] [place] [address] Inside Sales Assistant: Niesha Batres MD , Urineon HCG ( test) Ql (U) Negative NEGATIVE [facility] Comment on above: Specimens with hCG l evels near the threshold of the test (25 mIU/mL) may give a negative or indeterminate result. In such cases, another test should be performed with a new specimen in 48-72 hours. If early is suspected clinically in this setting, correlation with quantitative serum b-hCG level is suggested. [facility] has confirmed the use of plasma for this test. This has not been cleared or approved by the U.S. Food and Drug Administration. The FDA has determined that such clearance is not necessary. [facility] Basic Metabolic Panelon 11-1 Anion gap [Moles/Vol] 8.1 mmol/L Normal 6.0-15.0 [facility] Comment on above: Order Comment: pleas e change to 0900 per RN Kimberly Looney Performed By: #### M G, CMP, CBC, PT #### [facility] [address] [place] [address] [facility] Calcium [Mass/Vol] 8.3 mg/dL Low 8.6-10.3 [facility] Comment on above: Order Comment: pleas e change to 0900 per RN Kimberly Looney Performed By: #### M G, CMP, CBC, PT #### [facility] [address] [place] [id number] [facility] Chloride [Moles/Vol] 107 mmol/L Normal 98-107 [facility] Comment on above: Order Comment: pleas e change to 0900 per RN Kimberly Looney Performed By: #### M G, CMP, CBC, PT #### [facility] [address] [place] [id number] [facility] CO2 [Moles/Vol] 26.7 mmol/L Normal 21.0-31.0 [facility] Comment on above: Order Comment: pleas e change to 0900 per RN Kimberly Looney Performed By: #### M Zheng, CMP, CBC, PT #### [facility] [address] Creatinine [Mass/Vol] 0.57 mg/dL Low 0.60-1.20 [facility] Comment on above: Order Comment: pleas e change to 0900 per RN Kimberly Looney Performed By: #### Mary Calzada, CMP, CBC, PT #### [facility] [address] [place] [address] [place] Creatinine Clr Calc Pharmacy 122.00 [facility] Comment on above: Order Comment: pleas e change to 0900 per RN Kimberly Looney Performed By: #### Mary Calzada, CMP, CBC, PT #### [facility] [address] [place] [id number] [place] GFR/1.73 sq M.predicted MDRD (S/P/Bld) [Vol rate/Area] mL/min/{1.73_m2} [facility] Comment on above: Order Comment: pleas e change to 0900 per RN Kimberly Looney Performed By: #### M G, CMP, CBC, PT #### [facility] [address] [place] [id number] [facility] Glucose [Mass/Vol] 125 mg/dL High 70-100 [facility] Comment on above: Order Comment: pleas e change to 0900 per RN Kimberly Looney Result Comment: [place] om Glucose Reference Range is dependent on time and content of last meal. Glucose of more than 200 mg/dL in a nonstressed, ambulatory subject supports the diagnosis of Diabetes Mellitus. ADA recommended reference range Performed By: #### M G, CMP, CBC, PT #### [facility] [address] Potassium [Moles/Vol] 3.8 mmol/L Normal 3.5-5.1 [facility] Comment on above: Order Comment: pleas e change to 0900 per RN Kimberly Looney Performed By: #### M G, CMP, CBC, PT #### [facility] [address] Sodium [Moles/Vol] 138 mmol/L Normal 136-145 [facility] Comment on above: Order Comment: pleas e change to 0900 per RN Kimberly Looney Performed By: #### M G, CMP, CBC, PT #### [facility] [address] [place] [address] [place] Urea nitrogen [Mass/Vol] 2 mg/dL Low 7-25 [facility] Comment on above: Order Comment: pleas e change to 0900 per RN Kimberly Looney Performed By: #### M G, CMP, CBC, PT #### [facility] [address] Calcium [Mass/volume] in Ser um or PlasmaOrdered By: Tyrone Barron on 09-14-2023 Calcium [Mass/Vol] 8.3 mg/dL 8.6-10.3 [facility] Carbon dioxide, total [Moles /volume] in Serum or PlasmaOrdered By: Tyrone Barron on 09-14-2023 CO2 [Moles/Vol] 26.7 mmol/L 21.0-31.0 [facility] Chloride [Moles/volume] in S tessie or PlasmaOrdered By: Tyrone Barron on 09-14-2023 Chloride [Moles/Vol] 107 mmol/L 98-107 [facility] Creatinine [Mass/volume] in Serum or PlasmaOrdered By: Tyrone Barron on 09-14-2023 Creatinine [Mass/Vol] 0.57 mg/dL 0.60-1.20 [facility] Erythrocyte distribution wid th Auto (RBC) [Ratio]Ordered By: Tyrone Barron on 09-14-2023 Erythrocyte distribution width (RBC) [Ratio] 12.4 % 11.9-15.3 [facility] Ferritinon 09-14-2023 Ferritin [Mass/Vol] 204.3 ng/mL Normal 11.0-306.8 [facility] Comment on above: Order Comment: pleas e change to 0900 per RN Kimberly Looney Performed By: #### M G, CMP, CBC, PT #### [facility] [address] Ferritin [Mass/volume] in Se rum or PlasmaOrdered By: Tyrone Barron on 09-14-2023 Ferritin [Mass/Vol] 204.3 ng/mL 11.0-306.8 [facility] Folate [Mass/volume] in Seru m or PlasmaOrdered By: Tyrone Barron on 09-14-2023 Folate [Mass/Vol] 18.4 ng/mL >5.9 [facility] Comment on above: Folate reference ran ge: >5.9 ng/mlThe WHO technical consultation on folate and vitamin [id number] has determined that folate concentrations lessthan 4 ng/ml are considered deficient. Glucose [Mass/volume] in Ser um or PlasmaOrdered By: Tyrone Barron on 09-14-2023 Glucose [Mass/Vol] 125 mg/dL 70-100 [facility] Comment on above: ADA recommended refe rence rangeRandom Glucose Reference Range is dependent on time and content of last meal. Glucose of more than 200 mg/dL in a nonstressed, ambulatory subject supports the diagnosis of Diabetes Mellitus. Hematocrit Auto (Bld) [Volum e fraction]Ordered By: Tyrone Barron on 09-14-2023 Hematocrit (Bld) [Volume fraction] 36.4 % 34.0-46.4 [facility] Hemoglobin [Mass/volume] in BloodOrdered By: Tyrone Barron on 09-14-2023 Hemoglobin (Bld) [Mass/Vol] 12.4 g/dL 11.8-15.4 [facility] Hemogram CBC Without Diffon 09-14-2023 Erythrocyte distribution width (RBC) [Ratio] 12.4 % Normal 11.9-15.3 [facility] Comment on above: Order Comment: pleas e change to 0900 per RN Kimberly Looney Performed By: #### M G, CMP, CBC, PT #### [facility] [address] Hematocrit (Bld) [Volume fraction] 36.4 % Normal 34.0-46.4 [facility] Comment on above: Order Comment: pleas e change to 0900 per RN Kimberly Looney Performed By: #### M G, CMP, CBC, PT #### [address] Hemoglobin (Bld) [Mass/Vol] 12.4 g/dL Normal 11.8-15.4 [facility] Comment on above: Order Comment: pleas e change to 0900 per RN Kimberly Looney Performed By: #### M G, CMP, CBC, PT #### [facility] [address] [place] [address] MCH (RBC) [Entitic mass] 33.9 pg Normal 24.7-34.3 [facility] Comment on above: Order Comment: pleas e change to 0900 per RN Kimberly Looney Performed By: #### M G, CMP, CBC, PT #### [address] MCV (RBC) [Entitic vol] 99.9 fL Normal 80-100 [facility] Comment on above: Order Comment: pleas e change to 0900 per RN Kimberly Looney Performed By: #### M G, CMP, CBC, PT #### [address] Mean Corpuscular HGB Conc 33.9 g/dL Normal 32.0-35.0 [facility] Comment on above: Order Comment: pleas e change to 0900 per RN Kimberly Looney Performed By: #### M G, CMP, CBC, PT #### [address] Platelet mean volume (Bld) [Entitic vol] 7.4 fL Normal 6.3-10.7 [facility] Comment on above: Order Comment: pleas e change to 0900 per RN Kimberly Looney Result Comment: PERF ORMED BY: [place] [address] PATHOLOGIST [employer]ONENT MECHANIC ZURDO DOMINGO M.D. Performed By: #### M G, CMP, CBC, PT #### [address] Platelets (Bld) [#/Vol] 141 10*3/uL Low 150-450 [facility] Comment on above: Order Comment: pleas e change to 0900 per RN Kimberly Looney Performed By: #### M G, CMP, CBC, PT #### [address] RBC (Bld) [#/Vol] 3.65 10*6/uL Normal 3.60-5.00 [facility] Comment on above: Order Comment: pleas e change to 0900 per RN Kimberly Looney Performed By: #### M G, CMP, CBC, PT #### [address] WBC (Bld) [#/Vol] 4.1 10*3/uL Normal 3.8-11.6 [facility] Comment on above: Order Comment: pleas e change to 0900 per RN Kimberly Looney Performed By: #### M G, CMP, CBC, PT #### [address] Iron [Mass/volume] in Serum or PlasmaOrdered By: Tyrone Barron on 09-14-2023 Iron [Mass/Vol] 75 ug/dL 50-212 [facility] Iron and TIBC Profileon 08-31 % Iron Saturation 27.5 % Normal 20-50 [facility] Comment on above: Order Comment: pleas e change to 0900 per RN Kimberly Looney Performed By: #### M G, CMP, CBC, PT #### [address] Iron [Mass/Vol] 75 ug/dL Normal 50-212 [facility] Comment on above: Order Comment: pleas e change to 0900 per RN Kimberly Looney Performed By: #### M G, CMP, CBC, PT #### [facility] [address] [place] [id number] [place] Total Iron Binding Capacity 273 ug/dL Normal 255-450 [facility] Comment on above: Order Comment: pleas e change to 0900 per RN Kimberly Looney Performed By: #### M G, CMP, CBC, PT #### [facility] [address] [place] [id number] [place] Transferrin [Mass/Vol] 195 mg/dL Low 203-362 [facility] Comment on above: Order Comment: pleas e change to 0900 per RN Kimberly Looney Performed By: #### M G, CMP, CBC, PT #### [facility] [address] [place] [address] [place] Iron binding capacity [Mass/ volume] in Serum or PlasmaOrdered By: Tyrone Barron on 09-14-2023 Iron binding capacity [Mass/Vol] 273 ug/dL 255-450 [facility] Iron saturation [Mass Fracti on] in Serum or PlasmaOrdered By: Tyrone Barron on 09-14-2023 Iron saturation [Mass fraction] 27.5 % 20-50 [facility] Leukocytes [#/volume] correc winnie for nucleated erythrocytes in Blood by Automated counOrdered By: Tyrone Barron on 09-14-2023 WBC corrected for nucl RBC Auto (Bld) [#/Vol] 4.1 10*3/uL 3.8-11.6 [facility] MCH Auto (RBC) [Entitic mass ]Ordered By: Tyrone Barron on 09-14-2023 MCH (RBC) [Entitic mass] 33.9 pg 24.7-34.3 [facility] MCHC Auto (RBC) [Mass/Vol]Or dered By: Tyrone Barron on 09-14-2023 MCHC (RBC) [Mass/Vol] 33.9 g/dL 32.0-35.0 [facility] MCV Auto (RBC) [Entitic vol] Ordered By: Tyrone Barron on 09-14-2023 MCV (RBC) [Entitic vol] 99.9 fL 80-100 [facility] Magnesiumon 09-14-2023 Magnesium [Mass/Vol] 1.8 mg/dL Low 1.9-2.7 [facility] Comment on above: Order Comment: pleas e change to 0900 per KELECHI Looney Performed By: #### M G, CMP, CBC, PT #### [facility] [address] Magnesium [Mass/volume] in S tessie or PlasmaOrdered By: Tyrone Barron on 09-14-2023 Magnesium [Mass/Vol] 1.8 mg/dL 1.9-2.7 [facility] No Panel InformationOrdered By: Tyrone Barron on 09-14-2023 Estimated GFR (CKD-EPI) > 60.0 mL/Min [facility] Creatinine Clearance (Chem 122.00 [facility] Phosphate [Mass/volume] in S tessie or PlasmaOrdered By: Tyrone Barron on 09-14-2023 Phosphate [Mass/Vol] 2.9 mg/dL 2.5-4.5 [facility] Phosphoruson 09-14-2023 Phosphate [Mass/Vol] 2.9 mg/dL Normal 2.5-4.5 [facility] Comment on above: Order Comment: pleas e change to 0900 per KELECHI Looney Performed By: #### M G, CMP, CBC, PT #### [facility] [address] Platelet mean volume Auto (B ld) [Entitic vol]Ordered By: Tyrone Barron on 09-14-2023 Platelet mean volume (Bld) [Entitic vol] 7.4 fL 6.3-10.7 [facility] Platelets Auto (Bld) [#/Vol] Ordered By: Tyrone Barron on 09-14-2023 Platelets (Bld) [#/Vol] 141 10*3/uL 150-450 [facility] Potassium [Moles/volume] in Serum or PlasmaOrdered By: Tyrone Barron on 09-14-2023 Potassium [Moles/Vol] 3.8 mmol/L 3.5-5.1 [facility] RBC Auto (Bld) [#/Vol]Ordere d By: Tyrone Barron on 09-14-2023 RBC (Bld) [#/Vol] 3.65 10*6/uL 3.60-5.00 [facility] Serum or plasma anion gap de terminationOrdered By: Tyrone Barron on 09-14-2023 Anion gap [Moles/Vol] 8.1 mmol/L 6.0-15.0 [facility] Sodium [Moles/volume] in Ser um or PlasmaOrdered By: Tyrone Barron on 09-14-2023 Sodium [Moles/Vol] 138 mmol/L 136-145 [facility] Transferrin [Mass/volume] in Serum or PlasmaOrdered By: Tyrone Barron on 09-14-2023 Transferrin [Mass/Vol] 195 mg/dL 203-362 [facility] Urea nitrogen [Mass/volume] in Serum or PlasmaOrdered By: Tyrone Barron on 09-14-2023 Urea nitrogen [Mass/Vol] 2 mg/dL 7-25 [facility] Vit. B12/Folate Profileon Cobalamin (Vitamin B12) [Mass/Vol] 1354 pg/mL High 180-914 [facility] Comment on above: Order Comment: pleas e change to 0900 per RN Kimberly Looney Performed By: #### M G, CMP, CBC, PT #### [address] Folate 18.4 ng/mL Normal >5.9 [facility] Comment on above: Order Comment: pleas e change to 0900 per RN Kimberly Looney Result Comment: Fiorella te reference range: >5.9 ng/ml The WHO technical consultation on folate and vitamin b12 deficiencies has determined that folate concentrations less than 4 ng/ml are considered deficient. PERFORMED BY: [place] [address] PATHOLOGIST [employer] COMPONENT MECHANIC ZURDO DOMINGO M.D. Performed By: #### M G, CMP, CBC, PT #### [facility] [address] [place] [id number] [facility] Vitamin B12 ser/plasOrdered By: Tyrone Barron on 09-14-2023 Cobalamin (Vitamin B12) [Mass/Vol] 1354 pg/mL 180-914 [facility] Alanine aminotransferase [En zymatic activity/volume] in Serum or PlasmaOrdered By: Gem Velasco on 09-12-2023 ALT [Catalytic activity/Vol] 16 U/L 7-52 [facility] Albumin [Mass/volume] in Ser um or Plasma by Bromocresol green (BCG) dye binding methoOrdered By: Gem Velasco on 09-12-2023 Albumin BCG dye [Mass/Vol] 3.4 g/dL 3.5-5.7 [facility] Alkaline phosphatase [Enzyma tic activity/volume] in Serum or PlasmaOrdered By: Gem Velasco on 09-12-2023 ALP [Catalytic activity/Vol] 79 U/L 34-104 [facility] Aspartate aminotransferase [ Enzymatic activity/volume] in Serum or PlasmaOrdered By: Gem Velacso on 09-12-2023 AST [Catalytic activity/Vol] 28 U/L 13-39 [facility] Basophils Auto (Bld) [#/Vol] Ordered By: Gem Velasco on 09-12-2023 Basophils (Bld) [#/Vol] 0.0 10*3/uL 0.0-0.2 [facility] Basophils/100 WBC Auto (Bld) Ordered By: Gem Velasco on 09-12-2023 Basophils/100 WBC (Bld) 0.3 % . [facility] Bilirubin.total [Mass/volume ] in Serum or PlasmaOrdered By: Gem Velasco on 09-12-2023 Bilirubin [Mass/Vol] 0.5 mg/dL 0.3-1.[address] [facility] [address] head/brain wo conon 09-12 CT head/brain wo con [facility] [address] [place] [address] [place] [address] CT Scan Report Signed Patient: Karyn Estes MR#: [id number] : 1990 Acct:[id number] Age/Sex: 33 / F ADM Date: 09/11/23 Loc: Room: [address] [place] [address] Type: ADM IN Attending Dr: Gem Velasco [...] Oriana Doherty M.D.09/12/2023 6:47 AM Dictation Location: [place] [address] Transcribed By: [facility] 09/12/23646 Dictated By: Oriana Doherty MD 09/12/2345 Signed By: 09/12/2347 Normal [facility] Complete Blood Count Auto Di ffon 09-12-2023 Basophils (Bld) [#/Vol] 0.0 10*3/uL Normal 0.0-0.2 [facility] Comment on above: Result Comment: PERF ORMED BY: [place] [address] PATHOLOGIST [employer] COMP[employer]ENT MECHANIC ZURDO DOMINGO M.D. Performed By: #### M G, CMP, CBC, PT #### [address] Basophils/100 WBC (Bld) 0.3 % Normal . [facility] Comment on above: Performed By: #### M G, CMP, CBC, PT #### [facility] [address] Eosinophils (Bld) [#/Vol] 0.1 10*3/uL Normal 0.0-0.45 [facility] Comment on above: Performed By: #### M G, CMP, CBC, PT #### [address] Eosinophils/100 WBC (Bld) 2.4 % Normal . [facility] Comment on above: Performed By: #### M G, CMP, CBC, PT #### [address] Erythrocyte distribution width (RBC) [Ratio] 12.4 % Normal 11.9-15.3 [facility] Comment on above: Performed By: #### M G, CMP, CBC, PT #### [address] Hematocrit (Bld) [Volume fraction] 33.3 % Low 34.0-46.4 [facility] Comment on above: Performed By: #### M G, CMP, CBC, PT #### [address] Hemoglobin (Bld) [Mass/Vol] 11.3 g/dL Low 11.8-15.4 [facility] Comment on above: Performed By: #### M G, CMP, CBC, PT #### [place] [address] [place] Lymphocytes (Bld) [#/Vol] 1.2 10*3/uL Normal 1.00-4.8 [facility] Comment on above: Performed By: #### M G, CMP, CBC, PT #### [place] [address] [place] Lymphocytes/100 WBC (Bld) 26.5 % Normal . [facility] Comment on above: Performed By: #### M G, CMP, CBC, PT #### [address] MCH (RBC) [Entitic mass] 34.1 pg Normal 24.7-34.3 [facility] Comment on above: Performed By: #### M G, CMP, CBC, PT #### [address] MCV (RBC) [Entitic vol] 100.2 fL High 80-100 [facility] Comment on above: Performed By: #### M G, CMP, CBC, PT #### [address] Mean Corpuscular HGB Conc 34.0 g/dL Normal 32.0-35.0 [facility] Comment on above: Performed By: #### M G, CMP, CBC, PT #### [address] Monocytes (Bld) [#/Vol] 0.4 10*3/uL Normal 0.0-0.8 [facility] Comment on above: Performed By: #### M G, CMP, CBC, PT #### [address] Monocytes/100 WBC (Bld) 7.8 % Normal . [facility] Comment on above: Performed By: #### M G, CMP, CBC, PT #### [address] Neutrophils (Bld) [#/Vol] 2.9 10*3/uL Normal 1.8-7.7 [facility] Comment on above: Performed By: #### M G, CMP, CBC, PT #### [address] Neutrophils/100 WBC (Bld) 63.0 % Normal . [facility] Comment on above: Performed By: #### M G, CMP, CBC, PT #### [address] NRBC% 0.1 /100{WBC} Normal 0-0.5 [facility] Comment on above: Performed By: #### M G, CMP, CBC, PT #### [address] Platelet mean volume (Bld) [Entitic vol] 8.0 fL Normal 6.3-10.7 [facility] Comment on above: Performed By: #### M G, CMP, CBC, PT #### [facility] [address] Platelets (Bld) [#/Vol] 138 10*3/uL Low 150-450 [facility] Comment on above: Performed By: #### M G, CMP, CBC, PT #### [facility] [address] [place] [address] RBC (Bld) [#/Vol] 3.33 10*6/uL Low 3.60-5.00 [facility] Comment on above: Performed By: #### M G, CMP, CBC, PT #### [address] WBC (Bld) [#/Vol] 4.6 10*3/uL Normal 3.8-11.6 [facility] Comment on above: Performed By: #### M G, CMP, CBC, PT #### [facility] [address] [place] [address] Comprehensive Metabolic Pane katja 09-12-2023 Albumin [Mass/Vol] 3.4 g/dL Low 3.5-5.7 [facility] Comment on above: Performed By: #### M G, CMP, CBC, PT #### [facility] [address] [place] [address] Albumin/Globulin [Mass ratio] 1.3 {ratio} Normal [facility] Comment on above: Performed By: #### M G, CMP, CBC, PT #### [facility] [address] ALP [Catalytic activity/Vol] 79 U/L Normal 34-104 [facility] Comment on above: Performed By: #### M G, CMP, CBC, PT #### [facility] [address] [place] [address] ALT [Catalytic activity/Vol] 16 U/L Normal 7-52 [facility] Comment on above: Performed By: #### M G, CMP, CBC, PT #### [facility] [address] [place] [address] [place] Anion gap [Moles/Vol] 7.6 mmol/L Normal 6.0-15.0 [facility] Comment on above: Performed By: #### M G, CMP, CBC, PT #### [facility] [address] [place] [address] [place] AST [Catalytic activity/Vol] 28 U/L Normal 13-39 [facility] Comment on above: Performed By: #### M G, CMP, CBC, PT #### [facility] [address] Bilirubin [Mass/Vol] 0.5 mg/dL Normal 0.3-1.0 [facility] Comment on above: Performed By: #### M G, CMP, CBC, PT #### [facility] [address] Calcium [Mass/Vol] 8.0 mg/dL Low 8.6-10.3 [facility] Comment on above: Performed By: #### M G, CMP, CBC, PT #### [facility] [address] [place] [address] [place] Chloride [Moles/Vol] 109 mmol/L High 98-107 [facility] Comment on above: Performed By: #### M G, CMP, CBC, PT #### [facility] [address] [place] [address] [place] CO2 [Moles/Vol] 24.1 mmol/L Normal 21.0-31.0 [facility] Comment on above: Performed By: #### M G, CMP, CBC, PT #### [facility] [address] [place] [address] [place] Creatinine [Mass/Vol] 0.64 mg/dL Normal 0.60-1.20 [facility] Comment on above: Performed By: #### M G, CMP, CBC, PT #### [facility] [address] [place] [address] [place] Creatinine Clr Calc Pharmacy 105.36 Normal [facility] Comment on above: Performed By: #### M G, CMP, CBC, PT #### [facility] [address] [place] [address] [place] GFR/1.73 sq M.predicted MDRD (S/P/Bld) [Vol rate/Area] mL/min/{1.73_m2} [facility] Comment on above: Performed By: #### M G, CMP, CBC, PT #### [facility] [address] Globulin (S) [Mass/Vol] 2.6 g/dL Normal [facility] Comment on above: Performed By: #### M G, CMP, CBC, PT #### [facility] [address] Glucose [Mass/Vol] 95 mg/dL Normal 70-100 [facility] [facility] Comment on above: Result Comment: [facility] Glucose Reference Range is dependent on time and content of last meal. Glucose of more than 200 mg/dL in a nonstressed, ambulatory subject supports the diagnosis of Diabetes Mellitus. ADA recommended reference range Performed By: #### M G, CMP, CBC, PT #### [facility] [address] Potassium [Moles/Vol] 3.7 mmol/L Normal 3.5-5.1 [facility] Comment on above: Performed By: #### M G, CMP, CBC, PT #### [facility] [address] Protein [Mass/Vol] 6.0 g/dL Low 6.4-8.9 [facility] Comment on above: Performed By: #### M G, CMP, CBC, PT #### [facility] [address] Sodium [Moles/Vol] 137 mmol/L Normal 136-145 [facility] Comment on above: Performed By: #### M G, CMP, CBC, PT #### [facility] [address] Urea nitrogen [Mass/Vol] 5 mg/dL Low 7-25 [facility] Comment on above: Performed By: #### M G, CMP, CBC, PT #### [facility] [address] [place] [address] [facility] Eosinophils Auto (Bld) [#/Vo l]Ordered By: Gem Velasco on 09-12-2023 Eosinophils (Bld) [#/Vol] 0.1 10*3/uL 0.0-0.45 [facility] Eosinophils/100 WBC Auto (Bl d)Ordered By: Gem Velasco on 09-12-2023 Eosinophils/100 WBC (Bld) 2.4 % . [facility] Globulin Calc (S) [Mass/Vol] Ordered By: Gem Velasco on 09-12-2023 Globulin (S) [Mass/Vol] 2.6 g/dL [facility] INR in Platelet poor plasma by Coagulation assayOrdered By: Gem Velasco on 09-12-2023 INR Coag (PPP) [Relative time] 0.9 {INR} [facility] Comment on above: INR Therapeutic Rang e [...] 09-12-2023 Lymphocytes (Bld) [#/Vol] 1.2 10*3/uL 1.00-4.8 [facility] Lymphocytes/100 WBC Auto (Bl d)Ordered By: Gem Velasco on 09-12-2023 Lymphocytes/100 WBC (Bld) 26.5 % . [facility] Magnesiumon 09-12-2023 Magnesium [Mass/Vol] 2.2 mg/dL Normal 1.9-2.7 [facility] Comment on above: Result Comment: PERF ORMED BY: [facility] [address] [place] [address] PATHOLOGIST [employer]ENT MECHANIC ZURDO DOMINGO M.D. Performed By: #### M G, CMP, CBC, PT #### [facility] [address] [place] [address] [place] Monocytes Auto (Bld) [#/Vol] Ordered By: Gem Velasco on 09-12-2023 Monocytes (Bld) [#/Vol] 0.4 10*3/uL 0.0-0.8 [facility] Monocytes/100 WBC Auto (Bld) Ordered By: Gem Velasco on 09-12-2023 Monocytes/100 WBC (Bld) 7.8 % . [facility] Neutrophils Auto (Bld) [#/Vo l]Ordered By: Gem Velasco on 09-12-2023 Neutrophils (Bld) [#/Vol] 2.9 10*3/uL 1.8-7.7 [facility] Neutrophils/100 WBC Auto (Bl d)Ordered By: Gem Velasco on 09-12-2023 Neutrophils/100 WBC (Bld) 63.0 % . [facility] Nucleated erythrocytes [Pres ence] in Blood by Automated countOrdered By: Gem Velasco on 09-12-2023 Nucleated RBC Auto Ql (Bld) 0.1 /100{WBC} 0-0.5 [facility] Protein [Mass/volume] in Ser um or PlasmaOrdered By: Gem Velasco on 09-12-2023 Protein [Mass/Vol] 6.0 g/dL 6.4-8.9 [facility] Prothrombin Time INRon 09-12 INR Coag (PPP) [Relative time] 0.9 {INR} Normal [facility] Comment on above: Result Comment: INR Therapeutic [...] heart valves: 3 - 4.5 PERFORMED BY: [facility] [address] [facility] [place] [id number] PATHOLOGIST [employer]ENT MECHANIC ZURDO DOMINOG M.D. Performed By: #### M G, CMP, CBC, PT #### [facility] [address] [place] [address] [facility] PT Coag (PPP) [Time] 11.3 s Normal 9.0-12.9 [facility] Comment on above: Result Comment: A he matocrit value greater than 55% may lead to inaccurate results in coagulation testing. Patients having hematocrit values >55% require a special collection tube for coagulation studies. Please contact the laboratory at [phone] for redraw instructions. Performed By: #### M G, CMP, CBC, PT #### [facility] [address] [place] [address] [facility] Prothrombin time (PT)Ordered By: Gem Velasco on 09-12-2023 PT Coag (PPP) [Time] 11.3 s 9.0-12.9 [facility] Comment on above: A hematocrit value g reater than 55% may lead to inaccurate results in coagulation testing. Patients having hematocrit values >55% require a special collection tube for coagulation studies. Please contact the laboratory at [phone] for redraw instructions. Serum or plasma albumin/glob ulin mass ratioOrdered By: Gem Velasco on 09-12-2023 Albumin/Globulin [Mass ratio] 1.3 {ratio} [facility] WBC Auto (Bld) [#/Vol]Ordere d By: Gem Velasco on 09-12-2023 WBC (Bld) [#/Vol] 4.6 10*3/uL 3.8-11.6 [facility] Amphetamine Screen Ql (U)Ord ered By: Roby Thakkar on 09-11-2023 Amphetamines Ql (U) Negative Negative [facility] Automated epithelial cells c ount in urine sediment (number/area)Ordered By: Roby Thakkar on 09-11-2023 Epithelial cells Auto (Urine sed) [#/Area] 10-19 [HPF] 0-2 [facility] Automated erythrocytes count in urine sediment (number/area)Ordered By: Roby Thakkar on 09-11-2023 RBC Auto (Urine sed) [#/Area] 1-2 [HPF] 0-4 [facility] Automated leukocytes count i n urine sediment (number/area)Ordered By: Roby Bigg on 09-11-2023 WBC Auto (Urine sed) [#/Area] 10-19 [HPF] 0-4 [facility] Automated urine hyaline cast s count (number/volume)Ordered By: Roby Bigg on 09-11-2023 Hyaline casts Auto (U) [#/Vol] 3-4 [LPF] 0-1 [facility] Barbiturates [Presence] in U rine by Screen methodOrdered By: Roby Thakkar on 09-11-2023 Barbiturates Screen Ql (U) Negative Negative [facility] Basic Metabolic Panelon 08-31 Anion gap [Moles/Vol] 13.2 mmol/L Normal 6.0-15.0 [facility] Comment on above: Performed By: #### M G, BMP, PRL, CBC #### [facility] [address] [place] [address] [place] Calcium [Mass/Vol] 9.1 mg/dL Normal 8.6-10.3 [facility] Comment on above: Performed By: #### M G, BMP, PRL, CBC #### [facility] [address] [place] [id number] [place] Chloride [Moles/Vol] 103 mmol/L Normal 98-107 [facility] Comment on above: Performed By: #### M G, BMP, PRL, CBC #### [facility] [address] [place] [id number] [place] CO2 [Moles/Vol] 22.9 mmol/L Normal 21.0-31.0 [facility] Comment on above: Performed By: #### M G, BMP, PRL, CBC #### [facility] [address] [place] [id number] [place] Creatinine [Mass/Vol] 0.68 mg/dL Normal 0.60-1.20 [facility] Comment on above: Performed By: #### M G, BMP, PRL, CBC #### [facility] [address] [place] [id number] [place] Creatinine Clr Calc Pharmacy 96.07 Normal [facility] Comment on above: Performed By: #### M G, BMP, PRL, CBC #### [facility] [address] [place] [address] GFR/1.73 sq M.predicted MDRD (S/P/Bld) [Vol rate/Area] mL/min/{1.73_m2} Normal [facility] Comment on above: Performed By: #### M G, BMP, PRL, CBC #### [address] Glucose [Mass/Vol] 91 mg/dL Normal 70-100 [facility] Comment on above: Result Comment: [facility] Glucose Reference Range is dependent on time and content of last meal. Glucose of more than 200 mg/dL in a nonstressed, ambulatory subject supports the diagnosis of Diabetes Mellitus. ADA recommended reference range Performed By: #### M G, BMP, PRL, CBC #### [address] Potassium [Moles/Vol] 4.1 mmol/L Normal 3.5-5.1 [facility] Comment on above: Result Comment: Hemo lysis is present at a level that could interfere with the result. Performed By: #### M G, BMP, PRL, CBC #### [address] Sodium [Moles/Vol] 135 mmol/L Low 136-145 [facility] Comment on above: Performed By: #### M G, BMP, PRL, CBC #### [address] Urea nitrogen [Mass/Vol] 6 mg/dL Low 7-25 [facility] Comment on above: Performed By: #### M G, BMP, PRL, CBC #### [address] Basophils Auto (Bld) [#/Vol] Ordered By: Roby Thakkar on 09-11-2023 Basophils (Bld) [#/Vol] 0.0 10*3/uL 0.0-0.2 [facility] Basophils/100 WBC Auto (Bld) Ordered By: Roby Thakkar on 09-11-2023 Basophils/100 WBC (Bld) 0.4 % . [facility] Benzodiazepines Screen Ql (U )Ordered By: Roby Thakkar on 09-11-2023 Benzodiazepines Ql (U) Negative Negative Fi [facility] Benzoylecgonine [Presence] i n Urine by Screen methodOrdered By: Roby Thakkar on 09-11-2023 Benzoylecgonine Screen Ql (U) Negative Negative [facility] Bilirubin Test strip Ql (U)O rdered By: Roby Thakkar on 09-11-2023 Bilirubin Ql (U) Negative Negative [facility] Calcium [Mass/volume] in Ser um or PlasmaOrdered By: Roby Thakkar on 09-11-2023 Calcium [Mass/Vol] 9.1 mg/dL 8.6-10.3 [facility] Cannabinoids [Presence] in U rine by Screen methodOrdered By: Roby Thakkar on 09-11-2023 Cannabinoids Screen Ql (U) Negative Negative [facility] Comment on above: These are unconfirme d results and should not be used for legal purposes. Drug Cut-Off Concentration: AMPH 1000 ng/mL DARNELL 200 ng/mL LESLIE 200 ng/mL COCM 300 ng/mL OP 300 ng/mL PCP 25 ng/mL THC 20 ng/mL Carbon dioxide, total [Moles /volume] in Serum or PlasmaOrdered By: Roby Thakkar on 09-11-2023 CO2 [Moles/Vol] 22.9 mmol/L 21.0-31.0 [facility] Chloride [Moles/volume] in S tessie or PlasmaOrdered By: Roby Thakkar on 09-11-2023 Chloride [Moles/Vol] 103 mmol/L 98-107 [facility] Color Auto (U)Ordered By: Arun Thakkar on 09-11-2023 Color (U) Yellow Yellow [facility] Complete Blood Count Auto Di ffon 09-11-2023 Basophils (Bld) [#/Vol] 0.0 10*3/uL Normal 0.0-0.2 [facility] Comment on above: Result Comment: PERF ORMED BY: [facility] [address] [place] [address] PATHOLOGIST [employer] MECHANIC ZURDO DOMINGO M.D. Performed By: #### M G, BMP, PRL, CBC #### [address] Basophils/100 WBC (Bld) 0.4 % Normal . [facility] Comment on above: Performed By: #### M G, BMP, PRL, CBC #### [address] Eosinophils (Bld) [#/Vol] 0.0 10*3/uL Normal 0.0-0.45 [facility] Comment on above: Performed By: #### M G, BMP, PRL, CBC #### [address] Eosinophils/100 WBC (Bld) 0.8 % Normal . [facility] Comment on above: Performed By: #### M G, BMP, PRL, CBC #### [address] Erythrocyte distribution width (RBC) [Ratio] 12.2 % Normal 11.9-15.3 [facility] Comment on above: Performed By: #### M G, BMP, PRL, CBC #### [address] Hematocrit (Bld) [Volume fraction] 35.9 % Normal 34.0-46.4 [facility] Comment on above: Performed By: #### M G, BMP, PRL, CBC #### [address] Hemoglobin (Bld) [Mass/Vol] 12.4 g/dL Normal 11.8-15.4 [facility] Comment on above: Performed By: #### M G, BMP, PRL, CBC #### [address] Lymphocytes (Bld) [#/Vol] 1.0 10*3/uL Normal 1.00-4.8 [facility] Comment on above: Performed By: #### M G, BMP, PRL, CBC #### [address] Lymphocytes/100 WBC (Bld) 22.7 % Normal . [facility] Comment on above: Performed By: #### M G, BMP, PRL, CBC #### [address] MCH (RBC) [Entitic mass] 34.1 pg Normal 24.7-34.3 [facility] Comment on above: Performed By: #### M G, BMP, PRL, CBC #### [address] MCV (RBC) [Entitic vol] 99.1 fL Normal 80-100 [facility] Comment on above: Performed By: #### M G, BMP, PRL, CBC #### [address] Mean Corpuscular HGB Conc 34.4 g/dL Normal 32.0-35.0 [facility] Comment on above: Performed By: #### M G, BMP, PRL, CBC #### [address] Monocytes (Bld) [#/Vol] 0.3 10*3/uL Normal 0.0-0.8 [facility] Comment on above: Performed By: #### M G, BMP, PRL, CBC #### [place] [address] [place] Monocytes/100 WBC (Bld) 21.57 % High 0.00-20.00 [facility] Comment on above: Result Comment: For adults in ED, MDW > 20.0 may be associated with a higher risk of sepsis during the first 12 hrs of hospital admission Performed By: #### M G, BMP, PRL, CBC #### [place] [address] [place] Monocytes/100 WBC (Bld) 7.3 % Normal . [facility] Comment on above: Performed By: #### M G, BMP, PRL, CBC #### [place] [address] [place] Neutrophils (Bld) [#/Vol] 3.1 10*3/uL Normal 1.8-7.7 [facility] Comment on above: Performed By: #### Mary G, BMP, PRL, CBC #### [address] Neutrophils/100 WBC (Bld) 68.8 % Normal . [facility] Comment on above: Performed By: #### Mary G, BMP, PRL, CBC #### [address] NRBC% 0.1 /100{WBC} Normal 0-0.5 [facility] Comment on above: Performed By: #### M Zheng, BMP, PRL, CBC #### [address] Platelet mean volume (Bld) [Entitic vol] 8.2 fL Normal 6.3-10.7 [facility] Comment on above: Performed By: #### Mary G, BMP, PRL, CBC #### [address] Platelets (Bld) [#/Vol] 149 10*3/uL Low 150-450 [facility] Comment on above: Performed By: #### M G, BMP, PRL, CBC #### [address] RBC (Bld) [#/Vol] 3.62 10*6/uL Normal 3.60-5.00 [facility] Comment on above: Performed By: #### M G, BMP, PRL, CBC #### [place] [address] [place] WBC (Bld) [#/Vol] 4.4 10*3/uL Normal 3.8-11.6 [facility] Comment on above: Performed By: #### M G, BMP, PRL, CBC #### [address] Creatinine [Mass/volume] in Serum or PlasmaOrdered By: Roby Thakkar on 09-11-2023 Creatinine [Mass/Vol] 0.68 mg/dL 0.60-1.20 [facility] Dipstick and Microscopicon 1 11-11-2022 Appearance (U) Cloudy Critically abnormal Clear [facility] Comment on above: Order Comment: Name Collection Type:: Clean-Voided Midstream Performed By: #### M G, CMP, CBC, PT #### [facility] [address] [place] [address] [place] Bacteria,Urine 3+ High None Seen [facility] Comment on above: Order Comment: Name Collection Type:: Clean-Voided Midstream Performed By: #### M G, CMP, CBC, PT #### [facility] [address] [place] [address] [place] Bilirubin,Urine Negative Normal Negative [facility] Comment on above: Order Comment: Name Collection Type:: Clean-Voided Midstream Performed By: #### M G, CMP, CBC, PT #### [facility] [address] [place] [address] [place] Color (U) Yellow Normal Yellow [facility] Comment on above: Order Comment: Name Collection Type:: Clean-Voided Midstream Performed By: #### M G, CMP, CBC, PT #### [facility] [address] [place] [address] [place] Glucose Ql (U) Normal Normal Normal [facility] Comment on above: Order Comment: Name Collection Type:: Clean-Voided Midstream Performed By: #### M G, CMP, CBC, PT #### [facility] [address] [place] [address] [place] Hyaline Casts,Urine 3-4 High 0-1 [facility] Comment on above: Order Comment: Name Collection Type:: Clean-Voided Midstream Performed By: #### M G, CMP, CBC, PT #### [facility] [address] [place] [address] [place] Ketones Ql (U) Negative Normal Negative [facility] Comment on above: Order Comment: Name Collection Type:: Clean-Voided Midstream Performed By: #### M G, CMP, CBC, PT #### [facility] [address] [place] [address] [place] Leukocyte esterase Test strip Ql (U) 1+ High Negative [facility] Comment on above: Order Comment: Name Collection Type:: Clean-Voided Midstream Performed By: #### M G, CMP, CBC, PT #### [facility] [address] [place] [address] [place] Nitrite,Urine Negative Normal Negative [facility] Comment on above: Order Comment: Name Collection Type:: Clean-Voided Midstream Performed By: #### M G, CMP, CBC, PT #### [facility] [address] [place] [address] Occult Blood,Urine Trace High Negative [facility] Comment on above: Order Comment: Name Collection Type:: Clean-Voided Midstream Performed By: #### M G, CMP, CBC, PT #### [address] pH (U) 6.0 [pH] Normal 5.0-9.0 [facility] Comment on above: Order Comment: Name Collection Type:: Clean-Voided Midstream Performed By: #### M G, CMP, CBC, PT #### [facility] [address] [place] [address] Protein,Urine Negative Normal Negative [facility] Comment on above: Order Comment: Name Collection Type:: Clean-Voided Midstream Performed By: #### M G, CMP, CBC, PT #### [facility] [address] [place] [address] RBC,Urine 1-2 Normal 0-4 [facility] Comment on above: Order Comment: Name Collection Type:: Clean-Voided Midstream Performed By: #### M G, CMP, CBC, PT #### [facility] [address] [place] [address] [place] Specificy [place],Urine 1.005 Normal 1.001-1.03 0 [facility] Comment on above: Order Comment: Name Collection Type:: Clean-Voided Midstream Performed By: #### M G, CMP, CBC, PT #### [facility] [address] [place] [address] [place] Squamous Epithelial Cell,Urine 10-19 High 0-2 [facility] Comment on above: Order Comment: Name Collection Type:: Clean-Voided Midstream Performed By: #### M G, CMP, CBC, PT #### [facility] [address] [place] [address] Urobilinogen,Urine Normal Normal Normal [facility] Comment on above: Order Comment: Name Collection Type:: Clean-Voided Midstream Performed By: #### M G, CMP, CBC, PT #### [facility] [address] [place], [place] [id number] [place] WBC,Urine 10-19 High 0-4 [facility] Comment on above: Order Comment: Name Collection Type:: Clean-Voided Midstream Performed By: #### M G, CMP, CBC, PT #### [address] Drug Screen,Urineon 09-11-20 23 Amphetamine Screen,Urine Negative Normal Negative [facility] Comment on above: Performed By: #### M G, CMP, CBC, PT #### [facility] [address] [place] [address] Barbiturate Screen,Urine Negative Normal Negative [facility] Comment on above: Performed By: #### M G, CMP, CBC, PT #### [facility] [address] [place] [address] [place] Benzodiazepines Screen,Urine Negative Normal Negative [facility] Comment on above: Performed By: #### M G, CMP, CBC, PT #### [facility] [address] [place] [address] Cannabinoid Screen,Urine Negative Normal Negative [facility] Comment on above: Result Comment: Thes e are unconfirmed results and should not be used for legal purposes. Drug Cut-Off Concentration: AMPH 1000 ng/mL DARNELL 200 ng/mL LESLIE 200 ng/mL COCM 300 ng/mL OP 300 ng/mL PCP 25 ng/mL THC 20 ng/mL PERFORMED BY: [place] [address] PATHOLOGIST [employer] MECHANIC ZURDO DOMINGO M.D. Performed By: #### M G, CMP, CBC, PT #### [facility] [address] Cocaine Screen,Urine Negative Normal Negative [facility] Comment on above: Performed By: #### M G, CMP, CBC, PT #### [facility] [address] Opiate Screen,Urine Negative Normal Negative [facility] Comment on above: Performed By: #### M G, CMP, CBC, PT #### [facility] [address] [place] [address] [place] Phencyclidine Screen,Urine Negative Normal Negative [facility] Comment on above: Performed By: #### M G, CMP, CBC, PT #### [facility] [address] ECG 12 lead ECGon 09-11-2023 ECG 12 lead ECG [facility] [place] [address] [place] [address] Electrocardiograph Report Signed Patient: Karyn Estes MR#: [id number] : 1990 Acct:[id number] Age/Sex: 33 / F ADM Date: 09/11/23 Loc: ER Room: Type: [facility] ER Attending Dr: Ordering Provider: Roby Thakkar [...] sinus rhythm Confirmed by Roby THAKKAR DO ([id number]) on 09/11/2023 8:45:31 PM Referred By: Electronically Signed By:Roby THAKKAR DO Transcribed By: MUS Signed By Roby Thakkar DO 11/11/222044 Normal [facility] Eosinophils Auto (Bld) [#/Vo l]Ordered By: Roby Thakkar on 09-11-2023 Eosinophils (Bld) [#/Vol] 0.0 10*3/uL 0.0-0.45 [facility] Eosinophils/100 WBC Auto (Bl d)Ordered By: Roby Thakkar on 09-11-2023 Eosinophils/100 WBC (Bld) 0.8 % . [facility] Erythrocyte distribution wid th Auto (RBC) [Ratio]Ordered By: Roby Thakkar on 09-11-2023 Erythrocyte distribution width (RBC) [Ratio] 12.2 % 11.9-15.3 [facility] Ethanol [Mass/volume] in Ser um or PlasmaOrdered By: Roby Thakkar on 09-11-2023 Ethanol [Mass/Vol] mg/dL [facility] Ethanol [Mass/Vol] TNP [facility] Comment on above: Test not performed Ethyl Alcohol Profileon 08-31 Ethanol [Mass/Vol] mg/dL Normal [facility] Comment on above: Performed By: #### M G, CMP, CBC, PT #### [facility] [address] Percent Ethanol Not performed Normal [facility] Comment on above: Result Comment: PERF ORMED BY: [facility] [address] [facility] [place] [address] PATHOLOGIST [employer] MECHANIC ZURDO DOMINGO M.D. Performed By: #### M G, CMP, CBC, PT #### [facility] [address] Glucose [Mass/volume] in Ser um or PlasmaOrdered By: Roby Thakkar on 09-11-2023 Glucose [Mass/Vol] 91 mg/dL 70-100 [facility] Comment on above: ADA recommended refe rence rangeRandom Glucose Reference Range is dependent on time and content of last meal. Glucose of more than 200 mg/dL in a nonstressed, ambulatory subject supports the diagnosis of Diabetes Mellitus. HCG ( test) IAmila d Ql (U)Ordered By: Roby Thakkar on 09-11-2023 HCG ( test) Ql (U) Negative [facility] HCG,Urineon 09-11-2023 Beta HCG ( test) Ql (U) Negative Normal [facility] Comment on above: Order Comment: Name Collection Type:: Clean-Voided Midstream Result Comment: PERF ORMED BY: [facility] [address] [place] [address] PATHOLOGIST [employer] COMP[employer]ENT MECHANIC ZURDO DOMINGO M.D. Performed By: #### M G, CMP, CBC, PT #### [facility] [address] Hematocrit Auto (Bld) [Volum e fraction]Ordered By: Roby Thakkar on 09-11-2023 Hematocrit (Bld) [Volume fraction] 35.9 % 34.0-46.4 [facility] Hemoglobin [Mass/volume] in BloodOrdered By: Roby Thakkar on 09-11-2023 Hemoglobin (Bld) [Mass/Vol] 12.4 g/dL 11.8-15.4 [facility] Ketones Auto test strip (U) [Mass/Vol]Ordered By: Roby Thakkar on 09-11-2023 Ketones (U) [Mass/Vol] Negative Negative Fi [facility] Leukocytes [#/volume] correc winnie for nucleated erythrocytes in Blood by Automated counOrdered By: Roby Thakkar on 09-11-2023 WBC corrected for nucl RBC Auto (Bld) [#/Vol] 4.4 10*3/uL 3.8-11.6 [facility] Lymphocytes Auto (Bld) [#/Vo l]Ordered By: Roby Thakkar on 09-11-2023 Lymphocytes (Bld) [#/Vol] 1.0 10*3/uL 1.00-4.8 [facility] Lymphocytes/100 WBC Auto (Bl d)Ordered By: Roby Thakkar on 09-11-2023 Lymphocytes/100 WBC (Bld) 22.7 % . [facility] MCH Auto (RBC) [Entitic mass ]Ordered By: Roby Thakkar on 09-11-2023 MCH (RBC) [Entitic mass] 34.1 pg 24.7-34.3 [facility] MCHC Auto (RBC) [Mass/Vol]Or dered By: Roby Thakkar on 09-11-2023 MCHC (RBC) [Mass/Vol] 34.4 g/dL 32.0-35.0 [facility] MCV Auto (RBC) [Entitic vol] Ordered By: Roby Thakkar on 09-11-2023 MCV (RBC) [Entitic vol] 99.1 fL 80-100 [facility] Magnesiumon 09-11-2023 Magnesium [Mass/Vol] 1.7 mg/dL Low 1.9-2.7 [facility] Comment on above: Performed By: #### M G, BMP, PRL, CBC #### [facility] [address] Magnesium [Mass/volume] in S tessie or PlasmaOrdered By: Roby Thakkar on 09-11-2023 Magnesium [Mass/Vol] 1.7 mg/dL 1.9-2.7 [facility] Monocyte distribution width [Entitic volume] in Blood by AutomatedOrdered By: Roby Thakkar on 09-11-2023 Monocyte distribution width Auto (Bld) [Entitic vol] 21.57 % 0.00-20.00 [facility] Comment on above: For adults in ED, MD W > 20.0 may be associated with a higher risk of sepsis during the first 12 hrs of hospital admission Monocytes Auto (Bld) [#/Vol] Ordered By: Roby Thakkar on 09-11-2023 Monocytes (Bld) [#/Vol] 0.3 10*3/uL 0.0-0.8 [facility] Monocytes/100 WBC Auto (Bld) Ordered By: Roby Thakkar on 09-11-2023 Monocytes/100 WBC (Bld) 7.3 % . [facility] Neutrophils Auto (Bld) [#/Vo l]Ordered By: Roby Thakkar on 09-11-2023 Neutrophils (Bld) [#/Vol] 3.1 10*3/uL 1.8-7.7 [facility] Neutrophils/100 WBC Auto (Bl d)Ordered By: Roby Thakkar on 09-11-2023 Neutrophils/100 WBC (Bld) 68.8 % . [facility] Nitrite Test strip Ql (U)Ord ered By: Roby Thakkar on 09-11-2023 Nitrite Ql (U) Negative Negative [facility] No Panel InformationOrdered By: Roby Thakkar on 09-11-2023 Estimated GFR (CKD-EPI) > 60.0 mL/Min [facility] Creatinine Clearance (Chem 96.07 [facility] Nucleated erythrocytes [Pres ence] in Blood by Automated countOrdered By: Roby Thakkar on 09-11-2023 Nucleated RBC Auto Ql (Bld) 0.1 /100{WBC} 0-0.5 [facility] Opiates [Presence] in Urine by Screen methodOrdered By: Roby Thakkar on 09-11-2023 Opiates Screen Ql (U) Negative Negative [facility] Phencyclidine Screen Ql (U)O rdered By: Roby Thakkar on 09-11-2023 Phencyclidine Ql (U) Negative Negative [facility] Platelet mean volume Auto (B ld) [Entitic vol]Ordered By: Roby Thakkar on 09-11-2023 Platelet mean volume (Bld) [Entitic vol] 8.2 fL 6.3-10.7 [facility] Platelets Auto (Bld) [#/Vol] Ordered By: Roby Thakkar on 09-11-2023 Platelets (Bld) [#/Vol] 149 10*3/uL 150-450 [facility] Potassium [Moles/volume] in Serum or PlasmaOrdered By: Roby Thakkar on 09-11-2023 Potassium [Moles/Vol] 4.1 mmol/L 3.5-5.1 [facility] Comment on above: Hemolysis is present at a level that could interfere with the result. Prolactinon 09-11-2023 Prolactin 10.97 ng/mL Normal 3.34-26.72 [facility] Comment on above: Result Comment: PERF ORMED BY: [place] [address] PATHOLOGIST [employer]IC ZURDO DOMINGO M.D. Performed By: #### M G, BMP, PRL, CBC #### [address] Prolactin [Mass/volume] in S tessie or PlasmaOrdered By: Roby Thakkar on 09-11-2023 Prolactin [Mass/Vol] 10.97 ng/mL 3.34-26.72 [facility] Protein Auto test strip (U) [Mass/Vol]Ordered By: Roby Thakkar on 09-11-2023 Protein (U) [Mass/Vol] Negative Negative [facility] RBC Auto (Bld) [#/Vol]Ordere d By: Roby Thakkar on 09-11-2023 RBC (Bld) [#/Vol] 3.62 10*6/uL 3.60-5.00 [facility] Serum or plasma anion gap de terminationOrdered By: Roby Thakkar on 09-11-2023 Anion gap [Moles/Vol] 13.2 mmol/L 6.0-15.0 [facility] Sodium [Moles/volume] in Ser um or PlasmaOrdered By: Roby Thakkar on 09-11-2023 Sodium [Moles/Vol] 135 mmol/L 136-145 [facility] Specific gravity Auto test s trip (U) [Rel density]Ordered By: Roby Thakkar on 09-11-2023 Specific gravity (U) [Rel density] 1.005 1.001-1.03 0 [facility] Urea nitrogen [Mass/volume] in Serum or PlasmaOrdered By: Roby Thakkar on 09-11-2023 Urea nitrogen [Mass/Vol] 6 mg/dL 7-25 [facility] Urine Cultureon 09-11-2023 Bacteria identified Cx Nom (U) No Growth 2 Days PERFORMED BY: [place] [address] PATHOLOGIST [employer]IC ZURDO DOMINGO M.D. Normal [facility] Comment on above: Performed By: #### M G, CMP, CBC, PT #### [facility] [address] [place] [address] Urine bacteria detection by automated methodOrdered By: Roby Thakkar on 09-11-2023 Bacteria Auto Ql (U) 3+ None Seen [facility] Urine clarity by refractomet ry automatedOrdered By: Roby Thakkar on 09-11-2023 Clarity Refractometry automated (U) Cloudy Clear [facility] Urine culture routineOrdered By: Roby Thakkar on 09-11-2023 Bacteria identified Cx Nom (U) No Growth 2 Days [facility] Urine glucose measurement by automated test strip (mass/volume)Ordered By: Roby Thakkar on 09-11-2023 Glucose Auto test strip (U) [Mass/Vol] Normal mg/dL Normal [facility] Urine hemoglobin detection b y automated test stripOrdered By: Roby Thakkar on 09-11-2023 Hemoglobin Auto test strip Ql (U) Trace Negative [facility] Urine leukocyte esterase det ection by automated test stripOrdered By: Roby Thakkar on 09-11-2023 Leukocyte esterase Auto test strip Ql (U) 1+ Negative [facility] Urobilinogen Auto test strip (U) [Mass/Vol]Ordered By: Roby Thakkar on 09-11-2023 Urobilinogen (U) [Mass/Vol] Normal mg/dL Normal [facility] WBC Auto (Bld) [#/Vol]Ordere d By: Roby Thakkar on 09-11-2023 WBC (Bld) [#/Vol] 4.4 10*3/uL 3.8-11.6 [facility] pH Auto test strip (U)Ordere d By: Roby Thakkar on 09-11-2023 pH (U) 6.0 [pH] 5.0-9.0 [facility] Progress Noteson 06-11-2023 Manager Implementation Authentication Interface Message Text EMERGENCY TRIAGE, TREAT AND TRANSPORT (ET3) DOCUMENTATION OF TELEHEALTH VISIT Date / Time: 06/11/2023599 Name: Karyn Ayala : 1990 SSN: (Not on file) EMS Agency: [facility] [x] Verbal consent obtained [] Implied [...] Encounter Completed by: Joe Diana, Normal [facility] [employer] [facility] CBC AUTO DIFFon 06-16-2021 BASO # 0.1 103/ul Normal 0.0-0.1 [facility] Comment on above: Performed By: #### C BC ####[facility] [address] [place], [place] [address]Pmbqji [place] Basophils/100 WBC (Bld) 0.5 % Normal 0.2-2.0 [facility] Comment on above: Performed By: #### C BC ####[facility] [address] [place], [place] [address]Mphwal [place] EO # 0.0 103/ul Normal 0.0-0.7 [facility] Comment on above: Performed By: #### C BC ####[facility] [address] [place], [place] [address]Eeaunw [place] Eosinophils/100 WBC (Bld) 0.2 % Critically low 0.9-7.0 [facility] Comment on above: Performed By: #### C BC ####[facility] [address] [place], [place] [address]Yealmu [place] Erythrocyte distribution width (RBC) [Ratio] 12.4 % Normal 11.0-15.0 [facility] Comment on above: Performed By: #### C BC ####[facility] [address] [place] Hematocrit (Bld) [Volume fraction] 55.2 % Critically high 36.0-48.0 [facility] Comment on above: Performed By: #### C BC ####[facility] [address] [place] Hemoglobin (Bld) [Mass/Vol] 18.3 g/dL Critically high 12.0-16.0 [facility] Comment on above: Performed By: #### C BC ####[facility] [address] [place] [address] [place] IG # 0.06 10e3/ul Critically high 0.00-0.03 [facility] Comment on above: Performed By: #### C BC ####[facility] [address] [place] [address] [place] IG % 0.6 % Critically high 0.0-0.5 [facility] Comment on above: Performed By: #### C BC ####[facility] [address] [place] [address] [place] LYMPH # 1.9 103/ul Normal 1.2-3.8 [facility] Comment on above: Performed By: #### C BC ####[facility] [address] [place] [address] [place] Lymphocytes/100 WBC (Bld) 19.2 % Critically low 20.5-60.0 [facility] Comment on above: Performed By: #### C BC ####[facility] [address] [place] [address] [place] MANUAL DIFF REQ NO Normal [facility] Comment on above: Performed By: #### C BC ####[facility] [address] [place] MCH (RBC) [Entitic mass] 29.5 pg Normal 26.7-34.0 [facility] Comment on above: Performed By: #### C BC ####[facility] [address] [place] [id number] Gastelum MCHC (RBC) [Mass/Vol] 33.2 g/dL Normal 29.9-35.2 [facility] Comment on above: Performed By: #### C BC ####[facility] [address] [place] [id number] Gastelum MCV (RBC) [Entitic vol] 89.0 fL Normal 81.0-99.0 [facility] Comment on above: Performed By: #### C BC ####[facility] [address] [place] [id number] Gastelum MONO # 0.4 103/ul Normal 0.3-0.8 [facility] Comment on above: Performed By: #### C BC ####[facility] [address] [place] [address]Jay Gastelum Monocytes/100 WBC (Bld) 3.8 % Normal 1.7-12.0 [facility] Comment on above: Performed By: #### C BC ####[facility] [address] [place], [place] [address]Jay Gastelum NEUT # 7.6 103/ul Critically high 1.4-6.5 [facility] Comment on above: Performed By: #### C BC ####[facility] [address] [place] [address]Jay Gastelum Neutrophils/100 WBC (Bld) 75.7 % Critically high 43.0-75.0 [facility] Comment on above: Performed By: #### C BC ####[facility] [address] [place] [phone] Gastelum Platelet mean volume (Bld) [Entitic vol] 8.8 fL Critically low 9.5-13.5 [facility] Comment on above: Performed By: #### C BC ####[facility] [address] [place] [address]Jay Gastelum PLT 438 103/ul Normal 150-450 [facility] Comment on above: Performed By: #### C BC ####[facility] [address] [place] [address]Gerken [place] RBC 6.20 106/ul Critically high 4.20-5.40 [facility] Comment on above: Performed By: #### C BC ####[facility] [address] [place] [address]Gerken [place] WBC 10.1 103/ul Normal 4.0-11.0 [facility] Comment on above: Performed By: #### C BC ####[facility] [address] [place] [address]Gerken [place] DRUG SCREEN RAPID (URINE)on 06-16-2021 AMP Negative Normal NEGATIVE [facility] Comment on above: Performed By: #### P REGU, DRUGRPD #### [facility] [address] [place] [address] Jay [place] BAR Negative Normal NEGATIVE [facility] Comment on above: Performed By: #### P REGU, DRUGRPD #### [facility] [address] [place] [address] Jay [place] BUP Positive Abnormal NEGATIVE [facility] Comment on above: Performed By: #### P REGU, DRUGRPD #### [facility] [address] [place] [address] Jay [place] BZO Negative Normal NEGATIVE [facility] Comment on above: Performed By: #### P REGU, DRUGRPD #### [facility] [address] [place] [address] Jay [place] POLINA Negative Normal NEGATIVE [facility] Comment on above: Performed By: #### P REGU, DRUGRPD #### [facility] [address] [place] [address] Jay [place] CUT-OFFS SEE BELOW Normal [facility] Comment on above: Result Comment: AMP [...] Performed By: #### P REGU, DRUGRPD #### [facility] [address] [place] [address] DRUG CUT HEADER DRUG CLASS TEST SYST EM CUT-OFF CONCENTRATIONS ARE FOLLOWS: Normal [facility] Comment on above: Performed By: #### P REGU, DRUGRPD #### [facility] [address] [place] [address] mAMP Negative Normal NEGATIVE [facility] Comment on above: Performed By: #### P REGU, DRUGRPD #### [facility] [address] [place] [address] Jay [place] MTD Negative Normal NEGATIVE [facility] Comment on above: Performed By: #### P REGU, DRUGRPD #### [facility] [address] [place] [address] OPI Negative Normal NEGATIVE [facility] Comment on above: Performed By: #### P REGU, DRUGRPD #### [facility] [address] [place] [address] Jay [place] OXY Negative Normal NEGATIVE [facility] Comment on above: Performed By: #### P REGU, DRUGRPD #### [facility] [address] [place] [address] PCP Negative Normal NEGATIVE [facility] Comment on above: Performed By: #### P REGU, DRUGRPD #### [facility] [address] [place] [address] [facility] Normal NEGATIVE [facility] Comment on above: Performed By: #### P REGU, DRUGRPD #### [facility] [address] [place] [address] Jay [place] TCA Negative Normal NEGATIVE [facility] Comment on above: Performed By: #### P REGU, DRUGRPD #### [facility] [address] [place], [place] [address] Jay [place] THC Negative Normal NEGATIVE [facility] Comment on above: Performed By: #### P REGU, DRUGRPD #### [facility] [address] [place], [place] [address] Jayevangelist Gastelum URon 06-16-2021 , QUAL Negative Normal NEGATIVE [facility] Comment on above: Performed By: #### P REGTulio DRUGRPD #### [facility] [address] [place] [phone] Jay Gastelum PROF CHEM 8 (BAS METB)on Anion gap [Moles/Vol] 20.1 mmol/L Normal [facility] Comment on above: Performed By: #### B MP #### [facility] [address] [place] [address] Jay [place] Calcium [Mass/Vol] 9.7 mg/dL Normal 8.4-10.2 [facility] Comment on above: Performed By: #### B MP #### [facility] [address] [place] [address] Jay [place] Chloride [Moles/Vol] 102 mmol/L Normal 98-107 [facility] Comment on above: Performed By: #### B MP #### [facility] [address] [place] [address] Jay [place] CO2 [Moles/Vol] 21.7 mmol/L Critically low 22.0-30.0 [facility] Comment on above: Performed By: #### B MP #### [facility] [address] [place], [place] [address] Jay [place] Creatinine [Mass/Vol] 1.03 mg/dL Normal 0.52-1.04 [facility] Comment on above: Performed By: #### B MP #### [facility] [address] [place] [phone] Jay [place] EGFR-AF [place]OREAN >60 Normal >=60 [facility] Comment on above: Performed By: #### B MP #### [facility] [address] [place], [place] [address] Jay [place] EGFR-NON AF [place]ORE[place] >60 Normal >=60 [facility] Comment on above: Performed By: #### B MP #### [facility] [address] [place], [place] [address] Jay [place] Glucose [Mass/Vol] 112 mg/dL Critically high 74-106 [facility] Comment on above: Performed By: #### B MP #### [facility] [address] [place] [phone] Jay [place] Potassium [Moles/Vol] 3.8 mmol/L Normal 3.4-5.0 [facility] Comment on above: Performed By: #### B MP #### [facility] [address] [place] [phone] Jay [place] Sodium [Moles/Vol] 140 mmol/L Normal 137-145 [facility] Comment on above: Performed By: #### B MP #### [facility] [address] [place] [phone] Jay [place] Urea nitrogen [Mass/Vol] 6.0 mg/dL Critically low 7.0-17.0 [facility] Comment on above: Performed By: #### B MP #### [facility] [address] [place] [phone] Jay [place] Urea nitrogen/Creatinine [Mass ratio] 5.8 mg/mg Normal [facility] Comment on above: Performed By: #### B MP #### [facility] [address] [place] [phone] Jay [place] HEPATITIS PANEL, ACUTEon HBsAg Screen Negative Normal Negative [facility] Comment on above: Performed By: #### H EPACUT ####[facility] [address] [place] [phone] [place] Hep A Ab, IgM Negative Normal Negative [facility] Comment on above: Performed By: #### H EPACUT ####[facility] [address] [place] [phone] [place] Hep B Core Ab, IgM Negative Normal Negative [facility] Comment on above: Performed By: #### H EPACUT ####[facility] [address] [place] [address]Jay Gastelum Hep C Virus Ab <0.1 Normal 0.0-0.9 [facility] Comment on above: Result Comment: Nega tive: < 0.8 Indeterminate: 0.8 - 0.9 Positive: > 0.9 . The CDC recommends that a positive HCV antibody result be followed up with a HCV Nucleic Acid Amplification test (437217). Performed By: #### H EPACUT ####[facility] [address] [place] [address]Dania Gastelum XR FOOT SADE MIN 3 VIEWSon [...] NIESHA MORRIS Date: 2020-07-02 11:36 Normal [facility] CBC AUTO DIFFon 07-01-2020 BASO # 0.0 103/ul Normal 0.0-0.1 [facility] Comment on above: Performed By: #### C BC #### [facility] [address] [place] [address] Jay Gastelum Basophils/100 WBC (Bld) 0.4 % Normal 0.2-2.0 [facility] Comment on above: Performed By: #### C BC #### [facility] [address] [place] [address] Jay [place] EO # 0.1 103/ul Normal 0.0-0.7 [facility] Comment on above: Performed By: #### C BC #### [facility] [address] [place], [place] [address] Jay [place] Eosinophils/100 WBC (Bld) 0.7 % Critically low 0.9-7.0 [facility] Comment on above: Performed By: #### C BC #### [facility] [address] [place] [address] Jay [place] Erythrocyte distribution width (RBC) [Ratio] 13.2 % Normal 11.0-15.0 [facility] Comment on above: Performed By: #### C BC #### [facility] [address] [place] [address] Jay [place] Hematocrit (Bld) [Volume fraction] 40.6 % Normal 36.0-48.0 [facility] Comment on above: Performed By: #### C BC #### [facility] [address] [place] [address] Jay [place] Hemoglobin (Bld) [Mass/Vol] 13.5 g/dL Normal 12.0-16.0 [facility] Comment on above: Performed By: #### C BC #### [facility] [address] [place] [address] Jay [place] IG # 0.02 10e3/ul Normal 0.00-0.03 [facility] Comment on above: Performed By: #### C BC #### [facility] [address] [place] [address] Jay [place] IG % 0.2 % Normal 0.0-0.5 [facility] Comment on above: Performed By: #### C BC #### [facility] [address] [place] [address] Jay [place] LYMPH # 2.4 103/ul Normal 1.2-3.8 [facility] Comment on above: Performed By: #### C BC #### [facility] [address] [place], [place] [address] Jay [place] Lymphocytes/100 WBC (Bld) 22.2 % Normal 20.5-60.0 [facility] Comment on above: Performed By: #### C BC #### [facility] [address] [place] [address] Jay [place] MANUAL DIFF REQ NO Normal [facility] Comment on above: Performed By: #### C BC #### [facility] [address] [place], [place] [address] Jay [place] MCH (RBC) [Entitic mass] 31.3 pg Normal 26.7-34.0 [facility] Comment on above: Performed By: #### C BC #### [facility] [address] [place], [place] [address] Jay [place] MCHC (RBC) [Mass/Vol] 33.3 g/dL Normal 29.9-35.2 [facility] Comment on above: Performed By: #### C BC #### [facility] [address] [place], [place] [address] Jay [place] MCV (RBC) [Entitic vol] 94.2 fL Normal 81.0-99.0 [facility] Comment on above: Performed By: #### C BC #### [facility] [address] [place], [place] [address] Jay [place] MONO # 0.9 103/ul Critically high 0.3-0.8 [facility] Comment on above: Performed By: #### C BC #### [facility] [address] [place], [place] [address] Jay [place] Monocytes/100 WBC (Bld) 8.4 % Normal 1.7-12.0 [facility] Comment on above: Performed By: #### C BC #### [facility] [address] [place], [place] [address] Jay [place] NEUT # 7.3 103/ul Critically high 1.4-6.5 [facility] Comment on above: Performed By: #### C BC #### [facility] [address] [place], [place] [address] Jay Gastelum Neutrophils/100 WBC (Bld) 68.1 % Normal 43.0-75.0 [facility] Comment on above: Performed By: #### C BC #### [facility] [address] [place], [place] [address] Jay Gastelum Platelet mean volume (Bld) [Entitic vol] 9.7 fL Normal 9.5-13.5 [facility] Comment on above: Performed By: #### C BC #### [facility] [address] [place], [place] [address] Jayevangelist Ahumadaen PLT 231 103/ul Normal 150-450 [facility] Comment on above: Performed By: #### C BC #### [facility] [address] [place] [address] Jayevangelist Gastelum RBC 4.31 106/ul Normal 4.20-5.40 [facility] Comment on above: Performed By: #### C BC #### [facility] [address] [place] [address] Jay Gastelum WBC 10.8 103/ul Normal 4.0-11.0 [facility] Comment on above: Performed By: #### C BC #### [facility] [address] [place], [place] [address] Jay Gastelum FREE THYROXINE INDEX T7on FTI 2.41 Normal [facility] Comment on above: Performed By: #### L IPID, T7, TSH, CMP #### [facility] [address] [place], [place] [address] Jay Gastelum T3U 29.0 % Normal 23.5-40.5 [facility] Comment on above: Performed By: #### L IPID, T7, TSH, CMP #### [facility] [address] [place], [place] [address] Jay Gastelum T4 [Mass/Vol] 8.30 ug/dL Normal 5.53-11.00 [facility] Comment on above: Performed By: #### L IPID, T7, TSH, CMP #### [facility] [address] [place], [place] [address] Jay [place] GLYCOHEMOGLOBIN A1Con 2019 Glucose [Mass/Vol] 105 mg/dL Normal [facility] Comment on above: Performed By: #### A 1C #### [facility] [address] [place] [phone] Jay [place] HbA1c (Bld) [Mass fraction] 5.3 % Normal <=6.0 [facility] Comment on above: Performed By: #### A 1C #### [facility] [address] [place] [phone] Jay [place] IRONon 07-01-2020 Iron [Mass/Vol] 65.0 ug/dL Normal 37.0-170.0 [facility] Comment on above: Performed By: #### I CEZAR #### [facility] [address] [place] [address] Jay Oraina LIPID PROFILEon 07-01-2020 CHOL-HDL RATIO NORM SEE BELOW Normal [facility] Comment on above: Result Comment: 3.3 - 4.4 LOW RISK 4.4 - 7.1 AVERAGE RISK 7.1 - 11.0 MODERATE RISK >11.0 HIGH RISK Performed By: #### L IPID, T7, TSH, CMP #### [facility] [address] [place], [place] [address] Jay [place] Cholesterol [Mass/Vol] 202 mg/dL Critically high <=200 [facility] Comment on above: Performed By: #### L IPID, T7, TSH, CMP #### [facility] [address] [place] [phone] Jay [place] Cholesterol in HDL [Mass/Vol] 39 mg/dL Normal [facility] Comment on above: Performed By: #### L IPID, T7, TSH, CMP #### [facility] [address] [place] [phone] Jay [place] Cholesterol in LDL [Mass/Vol] 128.0 mg/dL Normal [facility] Comment on above: Performed By: #### L IPID, T7, TSH, CMP #### [facility] [address] [place] [phone] Jay [place] Cholesterol.total/Chol esterol in HDL [Mass ratio] 5.2 {ratio} Normal [facility] Comment on above: Performed By: #### L IPID, T7, TSH, CMP #### [facility] [address] [place] [address] Jay [place] HDL NORMAL > or = 60 mg/dl - LO W CARDIOVASCULAR RISK <40 mg/dl - HIGH CARDIOVASCULAR RISK Normal [facility] Comment on above: Performed By: #### L IPID, T7, TSH, CMP #### [facility] [address] [place] [address] Jay Oriana LDL CALC NORMAL SEE BELOW Normal [facility] Comment on above: Result Comment: <100 mg/dl OPTIMAL 100 - 129 mg/dl NEAR OR ABOVE OPTIMAL 130 - 159 mg/dl BORDERLINE HIGH 160 - 189 mg/dl HIGH >190 mg/dl VERY HIGH Performed By: #### L IPID, T7, TSH, CMP #### [facility] [address] [place] [address] Jay Oriana Triglyceride [Mass/Vol] 175 mg/dL Critically high <=150 [facility] Comment on above: Performed By: #### L IPID, T7, TSH, CMP #### [facility] [address] [place] [address] Jay Oriana VLDL CALC 35.0 mg/dL Normal [facility] Comment on above: Performed By: #### L IPID, T7, TSH, CMP #### [facility] [address] [place] [address] Jay Gastelum PROF 14(COMP METB)on 020 Albumin [Mass/Vol] 3.8 g/dL Normal 3.5-5.0 [facility] Comment on above: Performed By: #### L IPID, T7, TSH, CMP #### [facility] [address] [place] [address] Jay Oriana Albumin/Globulin [Mass ratio] 1.0 {ratio} Normal [facility] Comment on above: Performed By: #### L IPID, T7, TSH, CMP #### [facility] [address] [place] [address] Jay Oriana ALP [Catalytic activity/Vol] 125 U/L Normal 38-126 [facility] Comment on above: Performed By: #### L IPID, T7, TSH, CMP #### [facility] [address] [place] [address] Jay Oriana ALT [Catalytic activity/Vol] 38 U/L Normal 9-52 [facility] Comment on above: Performed By: #### L IPID, T7, TSH, CMP #### [facility] [address] [place] [address] Jay Oriana Anion gap [Moles/Vol] 10.9 mmol/L Normal Th e [facility] Comment on above: Performed By: #### L IPID, T7, TSH, CMP #### [facility] [address] [place] [address] Jay Oriana AST [Catalytic activity/Vol] 27 U/L Normal 14-36 [facility] Comment on above: Performed By: #### L IPID, T7, TSH, CMP #### [facility] [address] [place] [address] Jay Oriana Bilirubin [Mass/Vol] 0.4 mg/dL Normal 0.2-1.3 [facility] Comment on above: Performed By: #### L IPID, T7, TSH, CMP #### [facility] [address] [place] [address] Jay Oriana Calcium [Mass/Vol] 9.6 mg/dL Normal 8.4-10.2 [facility] Comment on above: Performed By: #### L IPID, T7, TSH, CMP #### [facility] [address] [place] [address] Jay Oriana Chloride [Moles/Vol] 102 mmol/L Normal 98-107 [facility] Comment on above: Performed By: #### L IPID, T7, TSH, CMP #### [facility] [address] [place] [address] Jay Oriana CO2 [Moles/Vol] 29.8 mmol/L Normal 22.0-30.0 [facility] Comment on above: Performed By: #### L IPID, T7, TSH, CMP #### [facility] [address] [place], [place] [address] Jay Oriana Creatinine [Mass/Vol] 0.82 mg/dL Normal 0.52-1.04 [facility] Comment on above: Performed By: #### L IPID, T7, TSH, CMP #### [facility] [address] [place], [place] [address] Jay Oriana EGFR-AF [place]OREAN >60 Normal >=60 [facility] Comment on above: Performed By: #### L IPID, T7, TSH, CMP #### [facility] [address] [place] [id number] Jay Oriana EGFR-NON AF [place] >60 Normal >=60 [facility] Comment on above: Performed By: #### L IPID, T7, TSH, CMP #### [facility] [address] [place] [id number] Jay Oriana Globulin (S) [Mass/Vol] 3.7 g/dL Normal [facility] Comment on above: Performed By: #### L IPID, T7, TSH, CMP #### [facility] [address] [place] [id number] Jay Oriana Glucose [Mass/Vol] 97 mg/dL Normal 74-106 [facility] [place] Comment on above: Performed By: #### L IPID, T7, TSH, CMP #### [facility] [address] [place] [id number] Jay Oriana Potassium [Moles/Vol] 3.7 mmol/L Normal 3.4-5.0 [facility] Comment on above: Performed By: #### L IPID, T7, TSH, CMP #### [facility] [address] [place] [id number] Jay Oriana Protein [Mass/Vol] 7.5 g/dL Normal 6.1-8.2 [facility] [place] Comment on above: Performed By: #### L IPID, T7, TSH, CMP #### [facility] [address] [place] [id number] Jay Oriana Sodium [Moles/Vol] 139 mmol/L Normal 137-145 [facility] Comment on above: Performed By: #### L IPID, T7, TSH, CMP #### [facility] [address] [place] [address] Jay Gastelum Urea nitrogen [Mass/Vol] 4.0 mg/dL Critically low 7.0-17.0 [facility] Comment on above: Performed By: #### L IPID, T7, TSH, CMP #### [facility] [address] [place] [id number] Jay Gastelum Urea nitrogen/Creatinine [Mass ratio] 4.9 mg/mg Normal [facility] Comment on above: Performed By: #### L IPID, T7, TSH, CMP #### [facility] [address] [place] [address] Jay Gastelum TSHon 07-01-2020 TSH 2.215 uIU/mL Normal 0.470-4.68 0 [facility] Comment on above: Performed By: #### L IPID, T7, TSH, CMP ####[facility] [address] [place] [id number] Gastelum TSH RANGE SEE BELOW Normal [facility] Comment on above: Result Comment: <0.3 4 UIU/ml HYPERTHYROID 0.34-5.60 UIU/ml EUTHYROID >5.60 UIU/ml HYPOTHYROID Performed By: #### L IPID, T7, TSH, CMP ####[facility] [address] [place] [address]Jay Gastelum CNOVon 06-12-2019 CNOV Office Visit (NELEIGHMN ) -- KARYN ESTES ([id number]) 1990 F Date Time Provider Department 06/12/19 9:45 AM BESSY SHERIFF) NENMMN During your visit today, we recorded the following information about you: Pulse Respiration Blood pressure Weight 126/minute 18/minute 110/74 50.3 kg Height 1.676 m Christel Larose MD, PhD 06/26/2019 1:28 AM Signed [facility] [place] [facility] Consult Visit Note Referring provider AND PCP - Carl Child MD [address] [place] [address] [address]Douglas Child for an [...] she was then sent to an OSH ([place]) as she could barely walk at all [...] Dr Child who [facility] where she was given hydration and [...] file Gets together: Not on file Attends church service: Not on file Active member of [...] on file Social History Narrative Worked at [employer] but stopped working after this last episode [...] patient's outside hospital records were reviewed in [facility] and pertinent workup and findings are noted [...] workup was done at the time (in [place]) and CSF and MRI brain/C/L spine w/wo [...] will be communicated to the patient via telephone/Tychehart. Patient to call office if not contacted after expected testing turnaround time. To aid with communication, patients (and primary care physicians) can sign up for Anonymous You (or Mention Mobile), which allows online appointment scheduling, transmission of labs results and chart notes, and secure email communication. To establish either account, visit [email or web address]. Bessy Sheriff MD Fellow, Neuromuscular Medicine In the service of Christel Larose MD, PhD [facility] STAFF PHYSICIAN NOTE OF PERSONAL INVOLVEMENT [...] Larose spent at least 50% of the brla-hb-kflg time in counseling, explanation of diagnosis, planning of further management, and answering all questions. Christel Larose MD, PhD Director, Section of ALS and Related Disorders Staff, [facility] Center [facility] [place] Bessy Sheriff MD, MD 06/12/2019 1:25 PM [...] [R20.2] Order(s):VITAMIN B12 BLOOD [SQB12] Order #: [id number]. #:[id number] HGB A1C [PXMCK2E] Order #: [id number]. #:[id number] PROTEIN ELECTROPHORESIS W/INTERP [SQSEPG] Order #: [id number]. #:[id number] METHYLMALONIC ACID [SQMMA] Order #: [id number]. #:[id number] EMG(NEURO/NI) [[id number]] Order #: [id number]: 1 IMMUNOFIXATION SCREEN, SERUM [SQIFESC] Order #: [id number] Prescriptions as of 06/12/2019 Sig: POTASSIUM CHLORIDE [...] by CHRISTEL LAROSE MD on 06/26/19 Normal [facility] Hemoglobin A1con 06-12-2019 HbA1c (Bld) [Mass fraction] 4.6 % Normal 4.3-5.6 [facility] Comment on above: Result Comment: Amer [place] Diabetes Association guidelines indicate that patients with HgbA1c in the range 5.7-6.4% are at increased risk for development of diabetes, and intervention by lifestyle modification may be beneficial. HgbA1c greater or equal to 6.5% is considered diagnostic of diabetes. Performed By: #### C BCDIF, CMP #### [facility] [address], [place] [address] HbA1c (Bld) [Mass fraction] 85 mg/dL Normal [facility] Comment on above: Result Comment: eAG: (Estimated average glucose) is a calculated value from HgbA1c and is public health representative of the average blood glucose level in the last 2-3 month period. Performed By: #### C BCDIF, CMP #### [facility] [employer] [address] [place], [place] [address] Methylmalonic Acidon 019 Methylmalonic Acid 175 nmol/L Normal 79-376 [facility] Comment on above: Result Comment: This test was developed and its performance characteristics determined by [facility]'s [facility] [place] ([facility]). It has not been cleared or approved by the FDA. [facility] is regulated under CLIA as qualified to perform high complexity testing. This test is used for clinical purposes. It should not be regarded as investigational or for research. Performed By: #### C BCDIF, CMP #### [facility] [address] [place], [place] [address] PROGRESSon 06-12-2019 PROGRESS HNO ID: [id number] Author: Christel Larose Service: ? Author Type: Physician Type: Progress Notes Filed: 06/26/2019 1:28 AM Note Text: [facility] [place] [facility] Consult Visit Note Referring provider AND PCP - Carl Child MD [facility] [place] [address]Douglas Child for an [...] Dr Child who [facility] her [facility] where she was given hydration and [...] file Gets together: Not on file Attends church service: Not on file Active member of [...] on file Social History Narrative Worked at [employer]) but stopped working after this last episode [...] b/l Vertical spread: No Crossed adductors: No Deo's sign: No Tromner's sign: No Plantar responses: [...] patient's outside hospital records were reviewed in [facility] and pertinent workup and findings are noted [...] workup was done at the time (in [place]) and CSF and MRI brain/C/L spine w/wo [...] will be communicated to the patient via telephone/Tychehart. Patient to call office if not contacted after expected testing turnaround time. To aid with communication, patients (and primary care physicians) can sign up for Anonymous You (or Mention Mobile), which allows online appointment scheduling, transmission of labs results and chart notes, and secure email communication. To establish either account, visit [email or web address]. Bessy Sheriff MD Fellow, Neuromuscular Medicine In the service of Christel Larose MD, PhD [facility] STAFF PHYSICIAN NOTE OF PERSONAL INVOLVEMENT [...] Larose spent at least 50% of the qzty-pp-jigt time in counseling, explanation of diagnosis, planning of further management, and answering all questions. Christel Larose MD, PhD Director, Section of ALS and Related Disorders Staff, [facility]rom[facility] Center [facility] [place] Normal [facility] Protein Electrophor.on 06-12 Albumin [Mass/Vol] 4.10 g/dL Normal 3.37-4.23 [facility] Comment on above: Performed By: #### C BCDIF, CMP #### [facility] [address] [place] [address] Alpha 1 Globulin 0.26 gm/dL Normal 0.18-0.31 [facility] Comment on above: Performed By: #### C BCDIF, CMP #### [facility] [address] [place], [place] [address] Alpha 2 Globulin 0.96 gm/dL Normal 0.52-0.97 [facility] Comment on above: Performed By: #### C BCDIF, CMP #### [facility] [address] [place], [place] [address] Beta Globulin 1.18 gm/dL Normal 0.84-1.36 [facility] Comment on above: Performed By: #### C BCDIF, CMP #### [facility] [address] [place], [place] [address] Gamma Globulin 1.50 gm/dL High 0.70-1.44 [facility] Comment on above: Performed By: #### C BCDIF, CMP #### [place] [address] [place] [id number] Interpretation SEE COMMENT Normal [facility] Comment on above: Result Comment: No d efinitive M protein is identified on protein electrophoresis. Performed By: #### C BCDIF, CMP #### [place] [address] [place] [id number] M Hernesto Concentratn 0.00 gm/dL Normal 0.00 [facility] Comment on above: Performed By: #### C BCDIF, CMP #### [place] [id number] Protein [Mass/Vol] N/A Normal [facility] Comment on above: Performed By: #### C BCDIF, CMP #### [place] [id number] Protein [Mass/Vol] 8.0 g/dL Normal 6.0-8.4 [facility] Comment on above: Performed By: #### C BCDIF, CMP #### [place] [id number] SPE Staff Review Reviewed by Casey Rebolledo MD ([id number]) Normal [facility] Comment on above: Performed By: #### C BCDIF, CMP #### [place] [address] Vitamin B12on 06-12-2019 Cobalamin (Vitamin B12) [Mass/Vol] 631 pg/mL Normal 232-1245 [facility] Comment on above: Performed By: #### C BCDIF, CMP #### [address] [address] CASE MANAGEMon 05-11-2019 CASE MANAGEM HNO ID: [id number] Author: Margot Briscoe (Sw) Service: Care Management Author Type: Tub Chucker Type: Care Mgt Progress Note Filed: 05/11/2019 2:11 PM Note Text: CARE MANAGEMENT DISCHARGE NOTE SERVICE DATE: 05/11/2019 SERVICE TIME: 2:08 PM LOS: 3 days Admission Date: 05/08/2019 DISCHARGE ARRANGEMENT (list agency and phone number) long term facility: Was an expedited discharge program used? [...] Transportation Agency and Phone #: Oren Schilling [phone]. Date of Trip: 05/11/19 Type of Service: BLS Non-emergency Is Patient Medicaid Pending: Yes and [place] medicaid Discussion of financial coverage occurred with Patient . Silver Spray Worker Location: Destination: Financial Care Management Responsibility: Estimated Charge: Approving Distributor Sales Manager: ADDITIONAL CONTACT RESOURCES: Patient tells me she is agreeable with discharge plan to go to SNF SIGNATURE: DOMINGUEZ Corrales PATIENT NAME: Karyn Estes DATE: May 11, 2019 TIME: 2:07 PM PAGER/CONTACT #: [phone] [facility] CONSULT PROGon 05-11-2019 CONSULT PROG HNO ID: [id number] Author: Jamie Guardado Service: Psychiatry Author Type: [...] Suboxone. ? ? Jamie Guardado MD ? [facility] CONSULT PROGon 05-10-2019 CONSULT PROG HNO ID: [id number] Author: Jamie Guardado Service: Psychiatry Author Type: [...] taking Suboxone. ? ? Jamie Guardado MD [facility] CONSULT PROG HNO ID: [id number] Author: Csaey Cheung Service: Neurology General Author Type: Physician [...] be available as needed. Casey Cheung MD [facility] NURSING PROGon 05-10-2019 NURSING PROG HNO ID: [id number] Author: Caron GallegosRnSahara Carmen RN Service: Nursing Author Type: Registered Nurse Type: Nursing Progress Note Filed: 05/10/2019 8:40 AM Note Text: Nursing Progress Note Patient Name: Karyn Estes Patient [facility] Daily Note: Heavy two person assist to bedside commode, patient unsteady during transfer to bedside commode. Bath given patient then heavy two person transfer to chair, patient assisted with ordering breakfast. This note was completed by: Caron Carmen RN [facility] PROGRESSon 05-10-2019 PROGRESS HNO ID: [id number] Author: Perla Whelan Service: Hospital Medicine Author Type: Physician Type: Progress Notes Filed: 05/10/2019 3:46 PM Note Text: SERVICE DATE: 05/10/2019 SERVICE TIME: 3:45 PM HOSPITAL MEDICINE PROGRESS NOTE NIGHT AND WEEKEND COVERAGE: Days: [phone], please page me for patient issues. Nights: [phone], please page [facility] Hospitalist Night coverage pager [phone] HPI 29 years old who presented to [...] VTE Prophylaxis/Anticoagulants 05/08/19 0145 pneumatic compression stockings (ny,wv) VTE Prophylaxis: VTE prophylaxis appropriate Plan of care discussed with: Patient, Care Management and RN SIGNATURE: Perla Whelan DO PATIENT NAME: Karyn Estes DATE: May 10, 2019 TIME: 3:45 PM PAGER/CONTACT #: [phone] [facility] THERAPY NTon 05-10-2019 [facility]: [id number] Author: Shaina Miller/L) Kristie Service: Occupational Therapy Author Type: Occupational Therapist Type: Therapy (PT/OT/Speech/Resp) Filed: 05/10/2019 11:11 AM Note Text: Occupational Therapy Evaluation SERVICE DATE: 05/10/2019 SERVICE TIME: 954 to 1044 ROOM: [place] [address] Recommended Discharge Disposition: Acute Rehab Justification For [...] functional decline for the past few weeks 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 Today, pt very ataxic and uncoordinated with [...] signs-other;Lack of coordination-other Interventions Provided: Evaluation;Therapeutic Activity (62777) $ Evaluation-Moderate (79865) Billed Units: 1 unit Therapeutic Activity (23836) Treatment Minutes: 25 2 units Skilled Intervention(s): [...] phone within patients reach. Pt. Verbalized understanding. Manufacturing Inspector Strength: Right: 17# Left: 16# Pinch Strength: [...] DATE: May 10, 2019 TIME: 11:01 AM [facility] HEALTH 05-09-2019 ALLIED HEALTH HNO ID: [id number] Author: Yves Best (Rt) Service: ? Author Type: Acoustical Material Worker Type: Allied Health Filed: 05/08/2019 11:00 PM [...] Lisa Fide May 08, 2019 10:44 PM [facility] CASE MANAGEMon 05-09-2019 CASE MANAGEM HNO ID: [id number] Author: Margot Briscoe (Sw) Service: Care Management Author Type: Tub Chucker Type: Care Mgt Progress Note Filed: 05/09/2019 2:59 PM Note Text: CARE MANAGEMENT PROGRESS NOTE SERVICE DATE: 05/09/2019 SERVICE TIME: 2:58 PM LOS: 1 day FREEDOM OF CHOICE GIVEN: Yes Karyn estes Financial Disclosure Provided The patient and/or family has been given the Provider List: Yes Provider List: [facility] Ms. Estes tells me she is agreeable with discharge plan to SNF for short term rehab stay. Preference is a facility in [facility] with her insurance closer to her home in [facility] SIGNATURE: DOMINGUEZ Corrales PATIENT NAME: Karyn Estes DATE: May 09, 2019 TIME: 2:58 PM PAGER/CONTACT #: [phone] [facility] CASE MANAGEM HNO ID: [id number] Author: Margot Briscoe (Sw) Service: Care Management Author Type: Tub Chucker Type: Care Mgt Progress Note Filed: 05/09/2019 [...] Yes - Do you ever drink an eye-track template maker in the morning to relieve shakes? Yes-has in the past Met with Ms. Estes this date. She tells me she believes she has a substance abuse problem. Initially she declined community resources available to her in her area of [facility]. However after discussing [facility] assessment she stated she would consider an out patient program, but is undecided at this time. Stated she has gone to [facility] for treatment in the past and would [...] very supportive family. Informed patient that the manager social remains available. She also tells me she will consider treatment and is aware of the [employer] phone number on the back of her card to contact for further available services under her [employer] insurance as needed. Community resources for substance abuse provided to patient. SIGNATURE: DOMINGUEZ Corrales PATIENT NAME: Karyn Estes DATE: May 09, 2019 TIME: 11:05 AM PAGER/CONTACT #: [phone] [facility] CONSULT PROGon 05-09-2019 CONSULT PROG HNO ID: [id number] Author: Jamie Guardado Service: Psychiatry Author Type: Physician Type: Consult Progress Note Filed: 05/09/2019 2:39 PM Note Text: PSYCHIATRY CONSULT SERVICE PROGRESS NOTE PATIENT NAME: Karyn Estes SERVICE DATE: May 09, 2019 SUBJECTIVE: Ms. Estes said she feels foggy today. She said she is overwhelmed with all that is going on. 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 She could tell me the days of [...] with her. ? Jamie Guardado MD Normal [facility] Comp Metabolic Panelon 05-09 Albumin [Mass/Vol] 3.5 g/dL Low 3.9-4.9 [facility] ALP [Catalytic activity/Vol] 102 U/L Normal 34-123 [facility] ALT [Catalytic activity/Vol] 27 U/L Normal 7-38 [facility] Anion gap [Moles/Vol] 16 mmol/L Normal 9-18 [facility] AST [Catalytic activity/Vol] 53 U/L High 13-35 [facility] Bilirubin [Mass/Vol] 0.4 mg/dL Normal 0.2-1.3 [facility] Calcium [Mass/Vol] 9.5 mg/dL Normal 8.5-10.2 [facility] Chloride [Moles/Vol] 104 mmol/L Normal 97-105 [facility] CO2 [Moles/Vol] 21 mmol/L Low 22-30 [facility] Creatinine [Mass/Vol] 0.50 mg/dL Low 0.58-0.96 [facility] eGFR- Amer. >60 Normal [facility] GFR/1.73 sq M predicted among non-blacks MDRD (S/P/Bld) [Vol rate/Area] mL/min/{1.73_m2} Normal [facility] Comment on above: Result Comment: eGFR [...] GFR. Glucose [Mass/Vol] 76 mg/dL Normal 74-99 [facility] Comment on above: Result Comment: The [place] Diabetes Association (ADA) provides guidance for cutoff [...] Standards of Medical Care in Diabetes 2016, [place] Diabetes Association. Diabetes Care. 2016.39(Suppl 1). Potassium [Moles/Vol] 3.8 mmol/L Normal 3.7-5.1 [facility] Protein [Mass/Vol] 6.4 g/dL Normal 6.3-8.0 [facility] Sodium [Moles/Vol] 141 mmol/L Normal 136-144 [facility] Urea nitrogen [Mass/Vol] 4 mg/dL Low 7-21 [facility] MRI BRAIN WO/W IVCONon 05-09 MRI BRAIN WO/W IVCON * * *Final Report* * * DATE OF EXAM: May 08 2019 11:05PM [facility] 0295 - MRI BRAIN WO/W IVCON [...] appearance of the thalami and medullary bodies. Clinic Receptionist: TAIWO Transcribe Date/Time: May 08 2019 11:29P Dictated by : VALENTINA MCGRATH MD This examination was interpreted and the report reviewed and electronically signed by: VALENTINA MCGRATH MD on May 08 2019 11:32PM EST [id number] Normal [facility] Magnesiumon 05-09-2019 Magnesium [Mass/Vol] 1.8 mg/dL Normal 1.7-2.3 [facility] PLAN OF CAREon 05-09-2019 PLAN OF CARE HNO ID: [id number] Author: Margot Briscoe (Sw) Service: Care Management Author Type: Tub Chucker Type: Plan of Care Filed: 05/09/2019 9:51 AM Note Text: MULTIDISCIPLINARY ROUNDS SERVICE DATE: 05/09/2019 ADMISSION DATE: 05/08/2019 SERVICE TIME: 9:49 AM ANTICIPATED D/C DATE: Problem List: ACTIVE PROBLEM LIST Weakness Malnutrition of Moderate Degree (Hcc) Paresthesias Alcohol Abuse Anxiety Attendees Present at Rounds: Nurse Distributor Sales Manager/Yard Demurrage Clerk Nurse Distributor Sales Manager: Tub Chucker: Staff Nurse: Needs Discussed on Rounds: Mobility [...] May 09, 2019 TIME: 9:49 AM CSN: [id number] [facility] PROGRESSon 05-09-2019 PROGRESS HNO ID: [id number] Author: Perla Whelan Service: Hospital Medicine Author Type: Physician Type: Progress Notes Filed: 05/09/2019 3:31 PM Note Text: SERVICE DATE: 05/09/2019 SERVICE TIME: 3:29 PM HOSPITAL MEDICINE PROGRESS NOTE NIGHT AND WEEKEND COVERAGE: Days: [phone], please page me for patient issues. Nights: [phone], please page CC Hospitalist Night coverage pager [phone] HPI 29 years old who presented to [...] 09, 2019 TIME: 3:29 PM PAGER/CONTACT #: [phone] [facility] PROGRESS HNO ID: [id number] Author: Perla Whelan Service: Hospital Medicine Author [...] DATE: 05/09/2019 TIME: 10:09 AM PAGER #: [phone] [facility] THERAPY NT 05-09-2019 THERAPY NT HNO ID: [id number] Author: Aury (Pt) Orlin Service: Physical Therapy Author Type: Physical Therapist Type: Therapy (PT/OT/Speech/Resp) Filed: 05/09/2019 2:57 PM Note Text: Physical Therapy Evaluation SERVICE DATE: 05/09/2019 SERVICE TIME: 1317 to 1403 ROOM: [place] [address] Recommended Discharge Disposition: Acute Rehab Recommended Discharge [...] Patient TREATMENT INTERVENTIONS: Interventions Provided: Evaluation;Therapeutic Exercise (35947);Gait Training (96637) $ Evaluation-Moderate (43002) Billed Units: 1 unit Therapeutic Exercise (39952) Treatment Minutes: 20 1 unit Skilled Intervention(s): [...] - emphasis on trying to make complete ute mountain ( has eversion weakness) Quadricep Sets Gluteal [...] to reduce ataxia/deviation of movement Gait Training (29861) Treatment Minutes: 10 1 unit Skilled Intervention(s): [...] DATE: May 09, 2019 TIME: 2:37 PM [facility] Blood Cultureon 05-08-2019 Bacteria identified Cx Nom (Bld) Sp. Request/Comment: - The blood culture bottles are underfilled. Adding volume lower or higher than the 8 to 10 mL per bottle, which is the manufacturers recommended volume, may adversely affect the recovery and/or detection of organisms. 6.0CC Culture Result - No growth 5 days Normal [facility] Comment on above: Performed By: #### C BCDIF, CMP #### [facility] [address] [place], [place] [address] CASE MGT INIT ASSESon [address] [facility] HNO ID: [id number] Author: Georgette Hernandez (Miguelina) Neelima Service: Social Work Author Type: Tub Chucker Type: Care Mgt Initial Assessment Filed: 05/08/2019 1:38 PM Note Text: CARE MANAGEMENT: ASSESSMENT AND DISCHARGE PLAN SERVICE DATE: 05/08/2019 SERVICE TIME: 1:28 PM PRIMARY CARE PHYSICIAN: Carl Child MD ADMISSION STATUS: Inpatient Needs Prior to Discharge: To Be Determined MEDICAL: Patient/Shoulder Puncher Stated Goals: To have reduction in symptoms To improve my functional status To return home to life as it was Health Insurance: [facility] MEDICA[facility] . Health Issues Impacting Discharge Plan: Newly diagnosed Dizziness Weakness and tingling in lower extremeties Last Admission Date: none Is this Within the Past 30 days? No Advance Directive: Current Advance Directive: None Decal Cutter Attempted to Assist with AD Completion: Yes [...] Walker Has the Patient Been in a Prison Facility in the Past 30 days? No [...] 0 I feel financially burdened by my vlp-hx-xlfrnj expenses for my prescription medication: Disagree mostly [...] is a 29 yo female admitted to [facility] from [facility] ED. Pt lives with her boyfriend and her two children (Ages 11 yo and 9 yo). Pt states her boyfriend is watching them while she is in the hospital. She lives in [facility] and usually follows with a PCP in [facility]. She stated she went to [facility] to try to get answers on [...] 08, 2019 TIME: 1:28 PM PAGER/CONTACT #: [phone] Normal [facility] CBCon 05-08-2019 Absolute nRBC <0.01 Normal <0.01 [facility] Comment on above: Performed By: #### V ITD #### [facility] [place] [address] Erythrocyte distribution width (RBC) [Ratio] 13.3 % Normal 11.5-15.0 [facility] Comment on above: Performed By: #### V ITD #### [place] [address] Hematocrit (Bld) [Volume fraction] 35.3 % Low 36.0-46.0 [facility] Comment on above: Performed By: #### V ITD #### [place] [address] Hemoglobin (Bld) [Mass/Vol] 12.0 g/dL Normal 11.5-15.5 [facility] Comment on above: Performed By: #### V ITD #### [place] [address] MCH (RBC) [Entitic mass] 38.5 pG High 26.0-34.0 [facility] Comment on above: Performed By: #### V ITD #### [address] [address] MCHC (RBC) [Mass/Vol] 34.0 g/dL Normal 30.5-36.0 [facility] Comment on above: Performed By: #### V ITD #### [facility] [address] [place] [address] MCV (RBC) [Entitic vol] 113.1 fL High 80.0-100.0 [facility] Comment on above: Performed By: #### V ITD #### [facility] [address] [place] [address] Platelet mean volume (Bld) [Entitic vol] 9.6 fL Normal 9.0-12.7 [facility] Comment on above: Performed By: #### V ITD #### [facility] [address] [place] [phone] Platelets (Bld) [#/Vol] 202 10*3/uL Normal 150-400 [facility] Comment on above: Performed By: #### V ITD #### [facility] [address] [place] [address] RBC (Bld) [#/Vol] 3.12 10*6/uL Low 3.90-5.20 [facility] Comment on above: Performed By: #### V ITD #### [facility] [place] [id number] WBC (Bld) [#/Vol] 5.32 10*3/uL Normal 3.70-11.00 [facility] Comment on above: Performed By: #### V ITD #### [facility] [place] [phone] CONSULTon 05-08-2019 CONSULT HNO ID: [id number] Author: Jamie Guardado Service: Psychiatry Author Type: Physician Type: Consults Filed: 05/08/2019 2:57 PM Note Text: PSYCHIATRY INITIAL CONSULTATION NOTE NAME: Karyn Estes SERVICE DATE: May 08, 2019 Consulting Service: Hospital Medicine REASON FOR CONSULTATION: Anxiety, possible conversion disorder. Identifying Information: Ms. Estes is a 29 year old female from [place], [place]. HPI: She was admitted to the hospital for weakness. She said her legs started to give out of her a couple of days ago. She said there is nothing she can put her finger on as to why this should be happening. She said she was tripping on things and having trouble walking. She said she came to [place] rather then stay closer to home to [...] HISTORY: Childhood: Said she was raised in [place] as the youngest of 4 children. She denied any abuse as a child. She went to [employer] and graduated in 2005. She then went to work at the [employer]. Relationships: single, never , she has a boyfriend, Neptali, 24 years old, for the last year. Children: Yes, (2) minors - does have custody, 10 and 8 years old. 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 Current supports: spouse/partner Legal history: INCARCERATIONS: for few months in the past for possession of heroin Restoration affiliation(s): None Abuse history: She denied a [...] 05/07/2019 7.0 4.5 - 8.0 Final Specific [place], [place] Date Value Ref Range Status 05/07/2019 [...] said she does not currently work an [employer] program. She said she has not been [...] Zyprexa to Remeron to lessen risks of watermelon harvesting supervisor side effects. She denied any psychotic issues or history of psychotic issues or Bipolar Disorder. C. Diagnostic tests recommended: None D. Psychiatry will follow with you. Would ask case management to discuss treatment options with her. SIGNATURE: Jamie Guardado MD PATIENT NAME: Karyn Estes DATE: May 08, 2019 TIME: 1:44 PM Normal [facility] CONSULT HNO ID: [id number] Author: Casey Cheung Service: Neurology General Author [...] fasciculations. There were no involuntary movements. Coordination: Rfgzsr-qydj-pwgeqy testing finds her mis-targeting about an inch [...] Casey Cheung MD Staff, General Neurology Normal [facility] Comp Metabolic Panelon 05-08 Albumin [Mass/Vol] 3.2 g/dL Low 3.9-4.9 [facility] Comment on above: Performed By: #### V ITD #### [facility] [address] [place], [place] [address] ALP [Catalytic activity/Vol] 95 U/L Normal 34-123 [facility] Comment on above: Performed By: #### V ITD #### [facility] [address] [place], [place] [address] ALT [Catalytic activity/Vol] 24 U/L Normal 7-38 [facility] Comment on above: Performed By: #### V ITD #### [facility] [address] [place], [place] [address] Anion gap [Moles/Vol] 13 mmol/L Normal 9-18 [facility] Comment on above: Performed By: #### V ITD #### [place] [address] [place] [id number] AST [Catalytic activity/Vol] 47 U/L High 13-35 [facility] Comment on above: Performed By: #### V ITD #### [place] [address] Bilirubin [Mass/Vol] 0.4 mg/dL Normal 0.2-1.3 [facility] Comment on above: Performed By: #### V ITD #### [place] [address] Calcium [Mass/Vol] 8.8 mg/dL Normal 8.5-10.2 [facility] Comment on above: Performed By: #### V ITD #### [place] [address] Chloride [Moles/Vol] 103 mmol/L Normal 97-105 [facility] Comment on above: Performed By: #### V ITD #### [place] [phone] CO2 [Moles/Vol] 22 mmol/L Normal 22-30 [facility] Comment on above: Performed By: #### V ITD #### [address] [address] Creatinine [Mass/Vol] 0.46 mg/dL Low 0.58-0.96 [facility] Comment on above: Performed By: #### V ITD #### [facility] [place] [id number] eGFR- Amer. >60 Normal [facility] Comment on above: Performed By: #### V ITD #### [facility] [place], [place] [address] GFR/1.73 sq M predicted among non-blacks MDRD (S/P/Bld) [Vol rate/Area] mL/min/{1.73_m2} Normal [facility] Comment on above: Result Comment: eGFR [...] GFR. Performed By: #### V ITD #### [facility] [address] [place], [place] [address] Glucose [Mass/Vol] 90 mg/dL Normal 74-99 [facility] Comment on above: Result Comment: The [place] Diabetes Association (ADA) provides guidance for cutoff [...] Standards of Medical Care in Diabetes 2016, [place] Diabetes Association. Diabetes Care. 2016.39(Suppl 1). Performed By: #### V ITD #### [facility] [address] [place], [place] [address] Potassium [Moles/Vol] 3.3 mmol/L Low 3.7-5.1 [facility] Comment on above: Performed By: #### V ITD #### [facility] [address] [place], [place] [address] Protein [Mass/Vol] 5.8 g/dL Low 6.3-8.0 [facility] Comment on above: Performed By: #### V ITD #### [facility] [address] [place], [place] [phone] Sodium [Moles/Vol] 138 mmol/L Normal 136-144 [facility] Comment on above: Performed By: #### V ITD #### [facility] [address] [place], [place] [phone] Urea nitrogen [Mass/Vol] 4 mg/dL Low 7-21 [facility] Comment on above: Performed By: #### V ITD #### [facility] [address] [place], [place] [address] ED NOTEon 05-08-2019 ED NOTE HNO ID: [id number] Author: Leonor GallegosRn) KELECHI Recinos Service: Emergency Medicine Author Type: Registered Nurse Type: ED Notes Filed: 05/08/2019 12:34 AM Note Text: Report called and given to KELECHI Fitch Normal [facility] ED NOTE HNO ID: [id number] Author: Yves Lopez (Ct) Service: Emergency Medicine Author Type: Clinical Acoustical Material Worker Type: ED Notes Filed: 05/08/2019 12:22 AM Note Text: Transport arrived Normal [facility] ED NOTE HNO ID: [id number] Author: Claudia GallegosRn) KELECHI Segura Service: Emergency Medicine Author Type: Registered Nurse Type: ED Notes Filed: 05/07/2019 11:24 PM Note Text: Patient placed on bedpan. Urine yellow in color. Obtained and sent. No dysuria/hematuria. Normal [facility] ED NOTE HNO ID: [id number] Author: Yves Lopez (Ct) Service: Emergency Medicine Author Type: Clinical Acoustical Material Worker Type: ED Notes Filed: 05/07/2019 10:43 PM Note Text: Pt given ice water. Will check back for urine. Normal [facility] ED NOTE HNO ID: [id number] Author: Yves Lopez (Ct) Service: Emergency Medicine Author Type: Clinical Acoustical Material Worker Type: ED Notes Filed: 05/07/2019 10:35 PM Note Text: 2nd set of cultures obtained and sent. Normal [facility] HISTORY PHYSICALon 9 HISTORY PHYSICAL HNO ID: [id number] Author: Lula Frank Service: Hospital Medicine Author [...] year she was admitted to hospital in [place]( couldn't confirm if it is [place]) [...] symptoms last year with extensive workup in [place] last year that resolved after a week, [...] VTE Prophylaxis/Anticoagulants 05/08/19 0145 pneumatic compression stockings (ny,oh) VTE Prophylaxis: VTE prophylaxis appropriate SIGNATURE: Lula Frank MD PATIENT NAME: Karyn Estes DATE: May 08, 2019 TIME: 2:42 AM PAGER/CONTACT #: [phone] [facility] NURSING PROGon 05-08-2019 NURSING PROG HNO ID: [id number] Author: Mirna (Rn) KELECHI Carranza Service: ? Author Type: Registered Nurse Type: Nursing Progress Note Filed: 05/08/2019 3:09 PM Note Text: Post Fall Assessment Karyn Estes [id number] Witnessed: Yes How did fall occur: Getting [...] This note was completed by:Mirna Carranza RN [facility] [id number] Author: Makenna GallegosRn) KELECHI Anderson Service: ? Author Type: Registered Nurse Type: Nursing Progress Note Filed: 05/08/2019 6:58 AM Note Text: Nursing Progress Note Patient Name: Karyn Estes Patient Location: [place] [address] [address] Daily Note: Labs resulted. K 3.3. Alpha paged Cross Coverage [phone]. Awaiting further orders. (6316) New orders received. This note was completed by: Makenna Anderson RN [facility] NURSING PROG HNO ID: [id number] Author: Makenna GallegosRn) KELECHI Anderson Service: ? Author Type: Registered Nurse Type: Nursing Progress Note Filed: 05/08/2019 2:18 AM Note Text: Admission/Transfer Note PATIENT NAME: Karyn Estes Patient admitted from [facility] ED via stretcher in stable condition. Actions taken: Patient oriented to room, call light function, prescribed activities, Patient rights and Quiet at night. No futher actions taken at this time. Will continue to monitor and check with patient. This note was completed by: Makenna Anderson RN [facility] NUTRITIONon 05-08-2019 NUTRITION HNO ID: [id number] Author: Hang Arreola Service: Nutrition Therapy Author [...] year she was admitted to hospital in [place]( couldn't confirm if it is [place]) [...] Resting Metabolic Rate: 1251 Estimated kilocalorie needs: 0612-2938 kilocalories determined by 25-30 kcal/kg Estimated protein needs: 52-78 grams determined by 1.0-1.5 g/kg Dosing weight Estimated fluid needs: 2629-9098 milliliters based on 1 mL per kcal [...] May 08, 2019 TIME: 1:09 PM PAGER: [phone] [facility] PROGRESSon 05-08-2019 PROGRESS HNO ID: [id number] Author: Perla Whelan Service: Hospital Medicine Author [...] consult appreciated. Similar presentation in 08/2018 at [facility]. Extensive work up, including LP and full spine MRI to r/o myelopathy. Infection, [place], MS and AIDP/CIDP were ruled out. Was supposed to follow up outpatient in 10/2018 with neurology for EMG but did not. 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 2. Hypokalemia Supplement. Check mag level. 3. Alcohol abuse Declines outpatient resources. Reports last drink one week ago. H/o withdrawal seizures. No signs of withdrawal currently. AST elevated. Check mag level. Pelra Whelan DO Associate Staff, Department of Hospital Medicine Clinical Rn Mental Healthforensic manager, [facility] Pager [phone] [facility] Toxicology Screen,U[place] 05-08 Amphetamines, Urine Negative Normal Negative [facility] Comment on above: Result Comment: Cuto ff threshold at 1000 ng/mL. Performed By: #### U TOX2, UAWMIC #### [facility] [address] [place] [phone] Barbiturates, Urine Negative Normal Negative [facility] Comment on above: Result Comment: Cuto ff threshold at 200 ng/mL. Performed By: #### U TOX2, UAWMIC #### [facility] [address] [place] [phone] Benzodiazepines, Ur Negative Normal Negative [facility] Comment on above: Result Comment: Cuto ff threshold at 200 ng/mL. Performed By: #### U TOX2, UAWMIC #### [facility] [address] [place] [phone] Cannabinoids, Urine Negative Normal Negative [facility] Comment on above: Result Comment: Cuto ff threshold at 50 ng/mL. Performed By: #### U TOX2, UAWMIC #### [facility] [address] [place] [phone] Cocaine, Urine Negative Normal Negative [facility] Comment on above: Result Comment: Cuto ff threshold at 300 ng/mL. Performed By: #### U TOX2, UAWMIC #### [facility] [address] [place] [phone] Ethanol, Urine <11 Normal <11 [facility] Comment on above: Performed By: #### U TOX2, UAWMIC #### [facility] [address] [place] [phone] Opiates, Urine Negative Normal Negative [facility] Comment on above: Result Comment: Cuto ff threshold at 300 ng/mL. Performed By: #### U TOX2, UAWMIC #### [facility] [address] [place] [phone] Oxycodone, Urine Negative Normal Negative [facility] Comment on above: Result Comment: Cuto ff [...] on the same specimen through Client Services ([phone]) if contacted within 48 hours of initial testing. [1]Substance Abuse and Mental Health Services Administration (2012). Clinical Drug Testing in Primary Care Technical Assistance Publication Series 32. Department of Health and Human Services, [place], p.10. These tests were developed and their performance characteristics determined by [facility]'s [facility] [place] ([facility]). They have not been cleared or approved by the FDA. [facility] is regulated under CLIA as qualified to perform high complexity testing. These tests are used for clinical purposes. They should not be regarded as investigational or for research. Performed By: #### U TOX2, UAWMIC #### [facility] [address] [place], [place] [address] Phencyclidine, Urine Negative Normal Negative [facility] Comment on above: Result Comment: Cuto ff threshold at 25 ng/mL. Performed By: #### U TOX2, UAWMIC #### [facility] [address] [place], [place] [address] Urinalysis with Microscopico n 05-08-2019 Bilirubin, Urine Negative Normal Negative [facility] Comment on above: Performed By: #### U TOX2, UAWMIC #### [facility] [address] [place], [place] [address] Clarity (U) Cloudy Critically abnormal Clear [facility] Comment on above: Performed By: #### U TOX2, UAWMIC #### [facility] [address] [place] [phone] Color (U) Yellow Normal Yellow [facility] Comment on above: Performed By: #### U TOX2, UAWMIC #### [place] [address] [place] [phone] Comments SEE COMMENT Normal [facility] Comment on above: Result Comment: N/A Performed By: #### U TOX2, UAWMIC #### [place] [address] [place] [address] Epithelial cells LM.HPF (Urine sed) [#/Area] SEE COMMENT Normal [facility] Comment on above: Result Comment: Few Squamous Epithelial Cells Performed By: #### U TOX2, UAWMIC #### [place] [address] [place] [phone] Glucose Ql (U) Negative Normal Negative [facility] Comment on above: Performed By: #### U TOX2, UAWMIC #### [place] [address] [place] [phone] Hemoglobin/Blood,Ur Negative Normal Negative [facility] Comment on above: Performed By: #### U TOX2, UAWMIC #### [place] [address] [place] [phone] Ketones Ql (U) Negative Normal Negative [facility] Comment on above: Performed By: #### U TOX2, UAWMIC #### [place] [address] [place] [phone] Leukest 2+ Critically abnormal Negative [facility] Comment on above: Performed By: #### U TOX2, UAWMIC #### [facility] [place] [phone] Nitrite Ql (U) Negative Normal Negative [facility] Comment on above: Performed By: #### U TOX2, UAWMIC #### [facility] [address] [place], [place] [address] pH (Bld) 7.0 Normal 4.5-8.0 [facility] Comment on above: Performed By: #### U TOX2, UAWMIC #### [facility] [address] [place], [place] [address] Protein (U) [Mass/Vol] Negative Normal Negative Cl [facility] Comment on above: Performed By: #### U TOX2, UAWMIC #### [place] [address] [place] [address] RBC (U) [#/Vol] 0-3 Normal 0-3 [facility] Comment on above: Performed By: #### U TOX2, UAWMIC #### [place] [address] [place], [place] [address] Specific [place], Ur 1.006 Normal 1.005-1 .03 0 [facility] Comment on above: Performed By: #### U TOX2, UAWMIC #### [place] [address] [place], [place] [address] Urine Nolberto Comment SEE COMMENT Normal [facility] Comment on above: Result Comment: N/A Performed By: #### U TOX2, UAWMIC #### [place] [address] [place] [address] Urobilinogen Qn (U) Normal Normal Normal [facility] Comment on above: Performed By: #### U TOX2, UAWMIC #### [facility] [address] [place], [place] [address] WBC (Bld) [#/Vol] 11-25 Critically abnormal 0-5 [facility] Comment on above: Performed By: #### U TOX2, UAWMIC #### [facility] [address] [place], [place] [address] Urine Cultureon 05-08-2019 Bacteria identified Cx Nom (U) Sp. Request/Comment: - Specimen received in preservative Culture Result - No growth (<1,000 CFU/ml) Normal [facility] Comment on above: Performed By: #### C BENJAMIN CMP #### [place] [address] Vitamin B12on 05-08-2019 Cobalamin (Vitamin B12) [Mass/Vol] 1214 pg/mL Normal 232-1245 [facility] Vitamin D 25 Hydroxyon 05-08 Vitamin D 25 Hydroxy 6.1 ng/mL Low 31.0-80.0 [facility] Comment on above: Result Comment: Clas sification of 25 [place] Vitamin D status: Insufficiency/Moderate Deficiency: < or = 30 ng/mL Sufficiency/Optimal Levels: 31 to 80 ng/mL Toxicity: > 100 ng/mL Test performed by chemiluminescent immunoassay. Performed By: #### V ITD #### [place] [address] Blood Cultureon 05-07-2019 Bacteria identified Cx Nom (Bld) Culture Result - No growth 5 days Normal [facility] Comment on above: Performed By: #### C BENJAMIN CMP #### [place] [address] CBC and Differentialon 05-07 Abs Baso <0.03 Normal <0.11 [facility] Comment on above: Performed By: #### C BCKRYSTALF, CMP #### [place] [address] Abs [place] 0.59 k/uL Normal <0.87 [facility] Comment on above: Performed By: #### C BCKRYSTALF, CMP #### [place] [phone] Abs Neut 3.97 k/uL Normal 1.45-7.50 [facility] Comment on above: Performed By: #### C BCKRYSTALF, CMP #### [address], [place] [address] Absolute nRBC <0.01 Normal <0.01 [facility] Comment on above: Performed By: #### C BCDIF, CMP #### [place] [address] [place] [phone] Basophils/100 WBC (Bld) 0.3 % Normal [facility] Comment on above: Performed By: #### C BCDIF, CMP #### [place] [address] [place] [address] DTYPE Auto Diff Normal [facility] Comment on above: Performed By: #### C BCDIF, CMP #### [place] [address] Eosinophils (Bld) [#/Vol] 0.03 10*3/uL Normal <0.46 [facility] Comment on above: Performed By: #### C BCDIF, CMP #### [place] [address] [place] [address] Eosinophils/100 WBC (Bld) 0.5 % Normal [facility] Comment on above: Performed By: #### C BCDIF, CMP #### [place] [address] [place] [address] Erythrocyte distribution width (RBC) [Ratio] 13.2 % Normal 11.5-15.0 [facility] Comment on above: Performed By: #### C BCDIF, CMP #### [place] [address] [place] [address] Hematocrit (Bld) [Volume fraction] 39.9 % Normal 36.0-46.0 [facility] Comment on above: Performed By: #### C BCDIF, CMP #### [place] [address] [place] [id number] Hemoglobin (Bld) [Mass/Vol] 14.4 g/dL Normal 11.5-15.5 [facility] Comment on above: Performed By: #### C BCDIF, CMP #### [place] [address] [place], [place] [address] Lymphocytes (Bld) [#/Vol] 1.23 10*3/uL Normal 1.00-4.00 [facility] Comment on above: Performed By: #### C BCDIF, CMP #### [place] [address] [place], [place] [address] Lymphocytes/100 WBC (Bld) 21.0 % Normal [facility] Comment on above: Performed By: #### C BCDIF, CMP #### [address] [address] MCH (RBC) [Entitic mass] 40.6 pG High 26.0-34.0 [facility] Comment on above: Performed By: #### C BCDIF, CMP #### [address] [address] MCHC (RBC) [Mass/Vol] 36.1 g/dL High 30.5-36.[address] [facility] Comment on above: Performed By: #### C BCDIF, CMP #### [place] [address] [place], [place] [address] MCV (RBC) [Entitic vol] 112.4 fL High 80.0-100.0 [facility] Comment on above: Performed By: #### C BCDIF, CMP #### [place] [address] [place], [place] [address] Monocytes/100 WBC (Bld) 10.1 % Normal [facility] Comment on above: Performed By: #### C BCDIF, CMP #### [place] [address] [place], [place] [address] Neutrophils/100 WBC (Bld) 68.1 % Normal [facility] Comment on above: Performed By: #### C BCDIF, CMP #### [facility] [address] [place] [address] NRBCs 0.0 /100 WBC Normal 0 [facility] Comment on above: Performed By: #### C BCDIF, CMP #### [place] [address] [place] [address] Platelet mean volume (Bld) [Entitic vol] 9.7 fL Normal 9.0-12.7 [facility] Comment on above: Performed By: #### C BCDIF, CMP #### [place] [address] Platelets (Bld) [#/Vol] 237 10*3/uL Normal 150-400 [facility] Comment on above: Performed By: #### C BCDIF, CMP #### [place] [phone] RBC (Bld) [#/Vol] 3.55 10*6/uL Low 3.90-5.20 [facility] Comment on above: Performed By: #### C BCDIF, CMP #### [place] [address] Review Done Normal [facility] Comment on above: Performed By: #### C BCDIF, CMP #### [place] [address] [place] [phone] WBC (Bld) [#/Vol] 5.85 10*3/uL Normal 3.70-11.00 [facility] Comment on above: Performed By: #### C BCDIF, CMP #### [place] [address] CKon 05-07-2019 CK [Catalytic activity/Vol] 84 U/L Normal 42-196 [facility] Comment on above: Performed By: #### C BCDIF, CMP #### [address] [place] [address] Comp Metabolic Panelon 05-07 Albumin [Mass/Vol] 3.9 g/dL Normal 3.9-4.9 [facility] Comment on above: Performed By: #### C BCDIF, CMP #### [facility] [address] [place], [place] [address] ALP [Catalytic activity/Vol] 113 U/L Normal 34-123 [facility] Comment on above: Performed By: #### C BCDIF, CMP #### [facility] [address] [place] [address] ALT [Catalytic activity/Vol] 27 U/L Normal 7-38 [facility] Comment on above: Performed By: #### C BCDIF, CMP #### [place] [address] [place] [address] Anion gap [Moles/Vol] 15 mmol/L Normal 9-[address] [facility] Comment on above: Performed By: #### C BCDIF, CMP #### [facility] [address] [place] [address] AST [Catalytic activity/Vol] 51 U/L High 13-35 [facility] Comment on above: Performed By: #### C BCDIF, CMP #### [facility] [address] [place] [address] Bilirubin [Mass/Vol] 0.6 mg/dL Normal 0.2-1.3 [facility] Comment on above: Performed By: #### C BCDIF, CMP #### [facility] [address] [place] [address] Calcium [Mass/Vol] 9.5 mg/dL Normal 8.5-10.2 [facility] Comment on above: Performed By: #### C BCDIF, CMP #### [facility] [address] [place] [id number] Chloride [Moles/Vol] 101 mmol/L Normal 97-105 [facility] Comment on above: Performed By: #### C BCKRYSTALF, CMP #### [facility] [address] [place], [place] [address] CO2 [Moles/Vol] 22 mmol/L Normal 22-30 [facility] Comment on above: Performed By: #### C BCKRYSTALF, CMP #### [facility] [address] [place] [address] Creatinine [Mass/Vol] 0.48 mg/dL Low 0.58-0.[address] [facility] Comment on above: Performed By: #### C BCKRYSTALF, CMP #### [place] [address] [place] [address] eGFR- Amer. >60 Normal [facility] Comment on above: Performed By: #### C BCDIF, CMP #### [place] [address] [place] [address] GFR/1.73 sq M predicted among non-blacks MDRD (S/P/Bld) [Vol rate/Area] mL/min/{1.73_m2} Normal [facility] Comment on above: Result Comment: eGFR [...] Performed By: #### C BCDIF, CMP #### [facility] [address] [place], [place] [address] Glucose [Mass/Vol] 103 mg/dL High 74-99 [facility] Comment on above: Result Comment: The [place] Diabetes Association (ADA) provides guidance for cutoff [...] Standards of Medical Care in Diabetes 2016, [place] [employer]. Diabetes Care. 2016.39(Suppl 1). Performed By: #### C BENJAMIN, CMP #### [facility] [employer] [address] [place], [place] [address] Potassium [Moles/Vol] 3.4 mmol/L Low 3.7-5.[address] [facility] Comment on above: Performed By: #### C BENJAMIN, CMP #### [facility] [address] [place], [place] [address] Protein [Mass/Vol] 7.2 g/dL Normal 6.3-8.0 [facility] Comment on above: Performed By: #### C EVERARDOF, CMP #### [facility] [address] [place], [place] [address] Sodium [Moles/Vol] 138 mmol/L Normal 136-144 [facility] Comment on above: Performed By: #### C BENJAMIN, CMP #### [facility] [address] [place], [place] [address] Urea nitrogen [Mass/Vol] 4 mg/dL Low 7-21 [facility] Comment on above: Performed By: #### C BENJAMIN, CMP #### [facility] [address] [place], [place] [address] ED NOTEon 05-07-2019 ED NOTE HNO ID: [id number] Author: Claudia Person) KELECHI Segura Service: Emergency [...] LIP of any changes in condition. Normal [facility] ED NOTE HNO ID: [id number] Author: Smita GallegosRn) KELECHI Lyles Service: ? Author Type: Registered Nurse Type: ED Notes Filed: 05/07/2019 8:57 PM Note Text: Bed: E13-B07 Expected date: 05/07/19 Expected time: 8:52 PM Means of arrival: Comments: Normal [facility] ED PROV NOTEon 05-07-2019 ED PROV NOTE HNO ID: [id number] Author: Felix Resendiz Service: Emergency Medicine Author [...] physical therapy. MRI brain on 08/31/18 at [facility] was significant only for nonspecific [...] no recent illness or fever to suggest Guillain-[place] Syndrome. Urine tox is negative. Patient treated [...] screen pending Discussed with Dr Frank at [facility], who accepted patient for transfer and admit to general medicine service. - OARRS reviewed - significant for suboxone therapy SIGNATURE: LENORA Reynaga) Jv 05/08/19 0016 Lon Trevino) Jv 05/08/19 0031 Attending Note I have personally performed a face to face assessment of the patient and have reviewed the PA/DECAY CONTROL OPERATOR note. My vu findings include: 29 yo [...] 4:35 PM Felix Resendiz 05/09/19 1637 Normal [facility] [employer] Shaun Willett 05-07 Arsenic Blood <10.0 Normal 0.0-12.0 [facility] Comment on above: Result Comment: (NOT [...] exposure. Test developed and characteristics determined by [employer]. See Compliance Statement B: [employer]/CS Performed By: #### C BCDIF, CMP #### [facility] [address] [place], [place] [address] Lead Blood 2.8 ug/dL Normal 0.0-4.9 [facility] Comment on above: Result Comment: (NOT [...] present. Test developed and characteristics determined by [employer]. See Compliance Statement B: [employer] Performed By: #### C BCDIF, CMP #### [facility] [address] [place], [place] [address] Mercury, Blood <2.5 Normal 0.0-10.0 [facility] Comment on above: Result Comment: (NOT [...] ug/L. Test developed and characteristics determined by [employer]. See Compliance Statement B: [employer]/CS Performed by [employer], [facility] [place] [address] [email or web address], George Arguello MD, Lab. Director Performed By: #### C BCDIF, CMP #### [facility] [address] [place], [place] [address] Lipaseon 05-07-2019 Lipase [Catalytic activity/Vol] 23 U/L Normal 16-61 [facility] Comment on above: Performed By: #### L IPA #### [facility] [address] [place], [place] [address] Vital Signs Date Time Vital Sign Value Performing Clinician Facility 08-23-2024 08:14-0400 Body height 167.6 cm Erica Maldonado DPM [facility] 08-23-2024 08:14-0400 Body temperature 98.49 [degF] Ericarashid Nguyễnley DPM Work Phone: [facility] [employer] 08-23-2024 08:14-0400 Diastolic blood pressure 72 mm[Hg] Erica Maldonado DPM Work Phone: [facility] [employer] 08-23-2024 08:14-0400 Heart rate 87 /min Erica Maldonado DPM Work Phone: [facility] [employer] 08-23-2024 08:14-0400 Respiratory rate 14 /min Erica Maldonado DPM Work Phone: [facility] [employer] 08-23-2024 08:14-0400 SaO2% (BldA) [Mass fraction] 96 % Erica Maldonado DPM Work Phone: [facility] [employer] 08-23-2024 08:14-0400 Systolic blood pressure 105 mm[Hg] Erica Maldonado DPM Work Phone: [facility] 08-23-2024 08:07-0400 Body mass index (BMI) [Ratio] 23.08 kg/m2 Erica Maldonado DPM Work Phone: [facility] 08-23-2024 08:07-0400 Body weight 64.86 kg Erica Maldonado DPM Work Phone: [facility] 09-16-2023 12:18-0500 Diastolic blood pressure 74 mm[Hg] MD Carl Child Work Phone: [facility] 09-16-2023 12:18-0500 Heart rate 84 /min MD Carl Child Work Phone: [facility] 09-16-2023 12:18-0500 Respiratory rate 16 /min MD Carl Child Work Phone: [facility] 09-16-2023 12:18-0500 SaO2% (BldA) [Mass fraction] 98 % MD Carl Child Work Phone: [facility] 09-16-2023 12:18-0500 Systolic blood pressure 122 mm[Hg] MD Carl Child Work Phone: [facility] 09-16-2023 12:00-0500 Body temperature 97.9 [degF] MD Carl Child Work Phone: [facility] 09-16-2023 06:00-0500 Body weight 60 kg MD Carl Child Work Phone: [facility] 09-13-2023 13:19-0500 Body height 167.64 cm MD Carl Child Work Phone: [facility] 09-11-2023 20:48-0500 Diastolic blood pressure 74 mm[Hg] MD Carl Child Work Phone: [facility] 09-11-2023 20:48-0500 Heart rate 84 /min MD Carl Child Work Phone: [facility] 09-11-2023 20:48-0500 Respiratory rate 18 /min MD Carl Child Work Phone: [facility] 09-11-2023 20:48-0500 SaO2% (BldA) [Mass fraction] 98 % MD Carl Child Work Phone: [facility] 09-11-2023 20:48-0500 Systolic blood pressure 108 mm[Hg] MD Carl Child Work Phone: [facility] 09-11-2023 17:06-0500 Body height 167.64 cm MD Carl Child Work Phone: [facility] 09-11-2023 17:06-0500 Body weight 52.7 kg MD Carl Child Work Phone: [facility] 09-11-2023 17:04-0500 Body temperature 98.9 [degF] MD Carl Child Work Phone: [facility] 12-16-2021 10:43-0500 Body height 167.64 cm MD Carl Child Work Phone: [facility] 12-16-2021 10:43-0500 Body mass index (BMI) [Ratio] 20.4 kg/m2 MD Carl Child Work Phone: [facility] 12-16-2021 10:43-0500 Body temperature 98.8 [degF] MD Carl Child Work Phone: [facility] 12-16-2021 10:43-0500 Body weight 57.4 kg MD Carl Child Work Phone: [facility] 12-16-2021 10:43-0500 Diastolic blood pressure 56 mm[Hg] MD Carl Child Work Phone: [facility] 12-16-2021 10:43-0500 Heart rate 102 /min MD Carl Child Work Phone: [facility] 12-16-2021 10:43-0500 Respiratory rate 18 /min MD Carl Child Work Phone: [facility] 12-16-2021 [id number] SaO2% (BldA) [Mass fraction] 98 % MD Carl Child Work Phone: [facility] 12-16-2021 10:43-0500 Systolic blood pressure 123 mm[Hg] MD Carl Child Work Phone: [facility] Encounters Encounter Date Encounter Type Care Provider Facility Start: 08-23-2024 End: 08-23-2024 ambulatory ERICA Ta [facility] Start: 08-23-2024 End: 08-23-2024 Subsequent hospital visit by physician Erica Maldonado DPM [facility] Start: 08-20-2024 ambulatory ERICA Ta [facility] Start: 09-11-2023 End: 09-16-2023 Evaluation and management of inpatient Gem Velasco Facility:[facility] Start: 09-11-2023 End: 09-16-2023 Evaluation and management of inpatient MD Carl Child Work Phone: [facility] Work Phone: Start: 06-11-2023 End: 07-30-2023 ambulatory UNKNOWN PROVIDER Facility:[facility] Start: 12-16-2021 End: 12-16-2021 Emergency department patient visit MD Carl Child Work Phone: [facility] Start: 06-16-2021 End: 06-16-2021 ambulatory ONI CARMICHAEL Facility:[facility] Start: 07-04-2020 Encounter for genera l adult medical examination without abnormal findings DR CARL CHILD [facility] Start: 07-02-2020 End: 07-03-2020 ambulatory CORNELIA SMILEY [...] toe of right foot 08/23/2024 9:24 AM [facility] Start: 08-23-2024 End: 08-23-2024 Correction hammertoe TOE HAMMER REPAIR [place] toe of right foot Hammer toe of right foot 08/23/2024 9:24 AM [facility] Start: 07-01-2024 COVID-19 Vaccine ( season) COVID-19 Vaccine () [facility] Start: 05-31-2024 Influenza vaccination Flu vaccine (# 1) [facility] Start: 09-16-2023 [facility] Start: 09-12-2023 [facility] Start: 09-11-2023 Consultation [facility] Start: 09-11-2023 Hospital admission [facility] Start: 09-11-2023 [facility] Start: 09-11-2023 CT of head without contrast CT head/brain wo con [facility] Start: 09-11-2023 CT Unspecified body region WO contrast [facility] Start: 09-11-2023 Bacteria identified in Urine by Culture [facility] Start: 02-07-2018 Screening for malign ant neoplasm of cervix [facility] Start: 02-07-2009 Screening for malign ant neoplasm of cervix Pap smear [facility] Start: 02-07-2007 DTaP/Tdap/Td vaccine (1 - Tdap) DTaP/Tdap/Td vaccine (1 - Tdap) [facility] Start: 02-07-2007 Hepatitis B vaccine (1 of 3 - 19+ 3-dose series) Hepatitis B vaccine (1 of 3 - 19+ 3-dose series) [facility] Start: 02-07-2001 Varicella vaccine (1 of 2 - 13+ 2-dose series) Varicella vaccine (1 of 2 - 13+ 2-dose series) [facility] Start: 2000 Depression Screen Depression Screen [facility] Albumin/Globulin ratio [facility] Anion gap measurement [facility] Basophils [#/volume] in Blood by Automated count [facility] Basophils/100 leukoc ytes in Blood by Automated count [facility] Eosinophils [#/volum e] in Blood [facility] Eosinophils/100 leukocytes in Blood by Automated count [facility] Erythrocyte distribu tion width [Ratio] by Automated count [facility] Erythrocytes [#/volu me] in Blood [facility] Globulin [Mass/volum e] in Serum [facility] Hematocrit [Volume Fraction] of Blood [facility] Hemoglobin [Mass/vol ume] in Blood [facility] INR in Platelet poor plasma by Coagulation assay [facility] Leukocytes [#/volume ] corrected for nucleated erythrocytes in Blood by Automated coun [facility] Leukocytes [#/volume ] in Blood [facility] Lymphocytes [#/volum e] in Blood by Automated count [facility] Lymphocytes/100 leukocytes in Blood by Automated count [facility] MCH [Entitic mass] b y Automated count [facility] MCHC [Mass/volume] b y Automated count [facility] MCV [Entitic volume] by Automated count [facility] Monocytes [#/volume] in Blood by Automated count [facility] Monocytes/100 leukoc ytes in Blood by Automated count [facility] Neutrophils [#/volum e] in Blood by Automated count [facility] Neutrophils/100 leukocytes in Blood by Automated count [facility] Nucleated erythrocyt es [Presence] in Blood by Automated count [facility] Patient Education [facility] Work Phone: Patient referral [facility] Work Phone: Platelet mean volume [Entitic volume] in Blood by Automated count [facility] Platelets [#/volume] in Blood [facility] Prothrombin time (PT) [facility] Payers Date Payer Category Payer Self-pay [id number] 2023 Unknown 2022 Medicaid [id number] 1990 Unknown [id number] 2.16.84 [id number] 1988 Unknown [id number] 2.16.84 [id number] 1988 Unknown [id number] 2.16.84 [id number] 1988 Unknown [id number] 2.16. [id number] 1988 Unknown [id number] 2.16.8 [id number] 1959 Unknown [id number] Medicaid [place] [employer] [id number] 501 [id number] Unknown [id number] 2.16.8 [id number] Social History Date Type Detail Facility Start: 12-16-2021 End: 09-11-2023 Tobacco smoking status NHIS Smoker (finding) [facility] Start: 1990 Sex Assigned At Female [facility] Start: 08-22-2024 Tobacco smoking stat us [facility] Ex-smoker [employer] History of tobacco use Cigarette Smoker B [facility] [employer] Start: 08-22-2024 Tobacco use and exposure Smokeless tobacco non-user [employer] Start: 08-23-2024 Alcoholic beverage intake Current drinker of alcohol (finding) [employer] Start: 11-30-2014 History of Social function [employer] Start: 11-30-2014 Tobacco use panel [facility] Start: 08-22-2024 Alcohol Comment socially Jose crook [employer] Start: 1990 Sex assigned at Not on file B on [facility] Goals Date Patient Goal Desired Activity /State Functional Status Date Assessment Result Facility 09-16-2023 Functional status [facility] Work Phone: Mental Status Date Assessment Result Facility 09-16-2023 Cognitive function Cognitive Sta tus Patient at [facility] Work Phone: Clinical Notes 09-11-2023 [...] PAT phone call. documented in this encounter [facility] 09-15-2023 Progress note Note Date/Time September 15, 2023 3:35pm [facility] [address] [place] [address] Hospitalist Progress Note Signed Patient: Karyn Estes MR#: [id number] : 1990 Acct:[id number] Age/Sex: 33 / F Adm Date: 3 Loc: Room: 7P4023-4 Type: ADM IN Attending Dr: Tyrone Barron [...] of care and confirmed it with the resident/student/DIE TROUBLE SHOOTER. ======== Ms. Estes says she is feeling okay today but very tired. She denies abdominal pain, tremors, hallucinations, N/V or diarrhea. Per nursing, she was restless again last night and had to be given 14 Ativan per [facility] protocol. She has been resting comfortably [...] Tab.Er.24h PO 09/12/24 08:59 300 mg DAILY VKITOR Administration Enoxaparin Sodium 40 mg 09/12/23 10:00 09/14/23 09:33 Enoxaparin 40 Mg/0.4 Ml Syringe SUBCUT 09/11/24 09:59 40 mg DAILY@1000 VIKTOR Administration Escitalopram Oxalate 5 mg 09/13/23 12:00 09/14/23 09:32 Escitalopram 5 Mg Tablet PO 09/12/24 11:59 5 mg DAILY VIKTOR Administration Dextrose/Sodium Chloride 1,000 mls @ 85 mls/hr 09/11/23 21:45 09/15/23 09:21 5 % Dextrose-0.9 % Nacl IV 09/10/24 21:44 Not Given .[id number] VIKTOR Dexmedetomidine HCl 400 mcg/ 100 mls [...] withdrawal Patient began having visual hallucinations 09/12. Commodore slipped after attempting to leave AMA. Continued hallucinations, confusion, restlessness. -Continue CIWA protocol and thiamine supplementation. -CO2 monitor due to decreased responsiveness/periods of apnea. Seizure/bruise Patient presented to ER from detox center due to concern for withdrawal seizure. Bruise on right temporal area. -Head CT revealed no acute intracranial trauma. Anxiety/depression-chronic -continue home medications DVT prophylaxis: Lovenox Documented By: yTrone Barron MD 09/15/23923 Signed By: <Electronically signed by Tyrone Barron MD> 09/15/23 0446 [facility] Work Phone: 1(200) 379-277511-15-2023 Progress note Author Tyrone Barron [facility] September 14, 2023 2:13pm Note Date/Time September 14, 2023 2:13pm [facility] [address] [place] [address] Hospitalist Progress Note Signed Patient: Karyn Estes MR#: [id number] : 1990 Acct:[id number] Age/Sex: 33 / F Adm Date: 3 Loc: Room: [address] [place] [address] Type: ADM IN Attending Dr: Tyrone Barron [...] of care and confirmed it with the resident/student/DIE TROUBLE SHOOTER. Patient is resting comfortably in bed. Per [...] % Nacl IV 09/10/24 21:44 Not Given .[id number] VIKTOR Dexmedetomidine HCl 400 mcg/ 100 mls [...] withdrawal Patient began having visual hallucinations 09/12. Commodore slipped after attempting to leave AMA. Continued hallucinations, confusion, restlessness. -Continue CIWA protocol and thiamine supplementation. -CO2 monitor due to decreased responsiveness/periods of apnea. Seizure/bruise Patient presented to ER from [facility] due to concern for withdrawal seizure. Bruise on right temporal area. -Head CT revealed no acute intracranial trauma. Anxiety/depression-chronic -continue home medications DVT prophylaxis: Lovenox Documented By: Tyrone Barron MD 09/14/23 0935 Signed By: <Electronically signed by Tyrone Barron MD> 09/14/23 5565 [facility] Work Phone: 1(209) 335-223711-14-2023 Progress note Author Tyrone Barron [facility] September 13, 2023 11:41am Note Date/Time September 13, 2023 11:41am [facility] [address] [place] [address] Hospitalist Progress Note Signed Patient: Karyn Estes MR#: [id number] : 1990 Acct:[id number] Age/Sex: 33 / F Adm Date: 3 Loc: Room: [address] [place] [address] Type: ADM IN Attending Dr: Tyrone Barron [...] of care and confirmed it with the resident/student/DIE TROUBLE SHOOTER. Ms. Estes is feeling much better today. [...] % Nacl IV 09/10/24 21:44 85 mls/hr .[id number] VIKTOR Administration Dexmedetomidine HCl 400 mcg/ 100 [...] Patient began having visual hallucinations yesterday afternoon. Commodore slipped after attempting to leave AMA. -Continue CIWA protocol and thiamine supplementation. Seizure/bruise Patient presented to ER from detox center due to concern for withdrawal seizure. Bruise on right temporal area. -Head CT revealed no acute intracranial trauma. Anxiety/depression-chronic -continue home medications DVT prophylaxis: Lovenox Documented By: Tyrone Barron MD 09/13/23 113 Signed By: <Electronically signed by Tyrone Barron MD> 09/13/23 1141 [facility] Work Phone: 1(357) 438-417311-14-2023 Progress note Author Tyrone Barron [facility] September 13, 2023 11:35am Note Date/Time September 12, 2023 12:38pm [facility] [address] [place] [address] Hospitalist Progress Note Signed Patient: Karyn Estes MR#: [id number] : 1990 Acct:[id number] Age/Sex: 33 / F Adm Date: 3 Loc: Room: [address] [place] [address] Type: ADM IN Attending Dr: Tyrone Barron [...] of care and confirmed it with the resident/student/DIE TROUBLE SHOOTER. Patient is resting comfortably in bed this [...] % Nacl IV 09/10/24 21:44 85 mls/hr .[id number] VIKTOR Administration Lorazepam 0 mg 09/11/23 21:33 [...] signed by Tyrone Barron MD> 09/13/23 1135 [facility] Work Phone: 1(293) 281-645711-13-2023 Progress note Author Gregory Raya [facility] September 12, 2023 10:32am Note Date/Time September 12, 2023 10:33am [facility] [address] [place] [id number] Progress Note Signed Patient: Karyn Estes MR#: [id number] : 1990 Acct:[id number] Age/Sex: 33 / F Adm Date: 3 Loc: Room: [address] [place] [address] Type: ADM IN Attending Dr: Tyrone Barron [...] signed by Gregory Raya MD> 09/12/23 1032 [facility] Work Phone: 1(364) 883-860511-12-2023 History and physical note Author Gem Velasco [facility] September 11, 2023 9:33pm Note Date/Time September 11, 2023 9:25pm [facility] [address] [place] [id number] Hospitalist H&P Signed Patient: Karyn Estes MR#: [id number] : 1990 Acct:[id number] Age/Sex: 33 / F Adm Date: 3 Loc: Room: [address] [place] [address] Type: ADM IN Attending Dr: Gem Velasco MD Copies to: MD Gem Malloy MD~ HPI DATE OF EXAMINATION: 09/11/23 CHIEF COMPLAINT: Concern for withdrawal seizure. HISTORY OF PRESENT ILLNESS: Patient is a 33-year-old female with history of alcohol abuse, she was sent to the emergency room by EMS from [facility] with concern for withdrawal seizure. Apparently [...] of Systems Unobtainable due to mental status [facility] Medical History Anxiety Colitis Depression History [...] % (Auto) 22.7 % (.) 09/11/23 18:51 [place] % (Auto) 7.3 % (.) 09/11/23 18:51 Eos % (Auto) 0.8 % (.) 09/11/23 18:51 Baso % (Auto) 0.4 % (.) 09/11/23 18:51 Nucleat RBC Rel Count 0.1 /100 WBC (0-0.5) 09/11/23 18:51 Neut # (Auto) 3.1 x10E3/uL (1.8-7.7) 09/11/23 18:51 Lymph # (Auto) 1.0 x10E3/uL (1.00-4.8) 09/11/23 18:51 [place] # (Auto) 0.3 x10E3/uL (0.0-0.8) 09/11/23 18:51 [...] pH 6.0 (5.0-9.0) 09/11/23 18:37 Ur Specific [place] 1.005 (1.001-1.030) 09/11/23 18:37 Urine Protein Negative [...] <Electronically signed by Gem Velasco MD> 09/11/232132 [facility] Work Phone: Discharge summary Author Tyrone Barron [facility] September 16, 2023 3:02pm Note Date/Time September 16, 2023 3:02pm [facility] [address] [place] [address] Discharge Summary Signed Patient: Karyn Estes MR#: [id number] : 1990 Acct:[id number] Age/Sex: 33 / F Adm Date: 3 Loc: Room: [address] [place] [address]: Tyrone Barron MD Copies to: [...] who presented to the emergency department from [facility], after she woke up in the [...] Qty: 20 0RF Follow Up: [facility] [place] [Outside] (Please call to schedule a follow up with [facility] if you decide.) Carl Child MD [Primary Care Provider] - 09/19/23 11:15 am (You have been scheduled for a follow up appointment for the following date and time, please call to reschedule if needed.) Documented By: Tyrone Barron MD 09/16/23 1457 Signed By: <Electronically signed by Tyrone Barron MD> 09/16/23 1502 [facility] Work Phone: Evaluation noteNo assessment information available [facility] Work Phone: Evaluation note* Diagnosis Onset Date Resolution Status Alcohol withdrawal acute Seizure acute [facility] Work Phone: Evaluation note* Diagnosis Onset Date Resolution Status Alcohol withdrawal acute Anxiety acute Bruise of face acute Depression acute Seizure acute [facility] Work Phone: History and physical note Author Gem Velasco [facility] September 11, 2023 9:33pm Note Date/Time September 11, 2023 9:25pm [facility] [address] [place] [address] Hospitalist H&P Signed Patient: Karyn Estes MR#: [id number] : 1990 Acct:[id number] Age/Sex: 33 / F Adm Date: 3 Loc: Room: [address] [place] [address] Type: ADM IN Attending Dr: Gem Velasco MD Copies to: MD Gem Malloy MD~ HPI DATE OF EXAMINATION: 09/11/23 CHIEF COMPLAINT: Concern for withdrawal seizure. HISTORY OF PRESENT ILLNESS: Patient is a 33-year-old female with history of alcohol abuse, she was sent to the emergency room by EMS from [facility] with concern for withdrawal seizure. Apparently [...] of Systems Unobtainable due to mental status [facility] Medical History Anxiety Colitis Depression History [...] % (Auto) 22.7 % (.) 09/11/23 18:51 [place] % (Auto) 7.3 % (.) 09/11/23 18:51 Eos % (Auto) 0.8 % (.) 09/11/23 18:51 Baso % (Auto) 0.4 % (.) 09/11/23 18:51 Nucleat RBC Rel Count 0.1 /100 WBC (0-0.5) 09/11/23 18:51 Neut # (Auto) 3.1 x10E3/uL (1.8-7.7) 09/11/23 18:51 Lymph # (Auto) 1.0 x10E3/uL (1.00-4.8) 09/11/23 18:51 [place] # (Auto) 0.3 x10E3/uL (0.0-0.8) 09/11/23 18:51 [...] pH 6.0 (5.0-9.0) 09/11/23 18:37 Ur Specific [place] 1.005 (1.001-1.030) 09/11/23 18:37 Urine Protein Negative [...] <Electronically signed by Gem Velasco MD> 09/11/232132 [facility] Work Phone: Hospital Discharge instructions Additional Instructions Take the antibiotics Bactrim and Keflex both twice a day for 10 days take until completed Ibuprofen every 6 hours as needed for pain You may want to sports the area after using the restroom to clean it You may not soak in a bathtub but you can take a shower See [employer] as scheduled next month Return to the ER immediately for worsening pain swelling fever chills vomiting or any other [facility] Work Phone: Summary Purpose Family History No Family History Records Found Relationship Condition Age at Onset Recorded Date/T carrie father Malignant neoplasm of lung Unknown Not Specified Family history of mental disorder Unknow n Advance Directives No Advanced Directives Records Found Advance Directive Response Recorded Date/ Time Advance Directives No September 05, 2018 3:35pm Hospital Course Note HNO ID: [id number] Author: Shaylee Whelan Service: Hospital Medicine Author [...] section and content) DATE CREATED AUTHOR 05/11/2019 [facility] DATE CREATED AUTHOR AUTHOR'S ORGANIZ ATION 06/26/2019 [facility] DATE CREATED AUTHOR AUTHOR'S ORGANIZ ATION 06/19/2021 [facility] DATE CREATED AUTHOR AUTHOR'S ORGANIZ ATION 08/29/2023 [facility] [employer] [facility] DATE CREATED AUTHOR AUTHOR'S ORGANIZ ATION 09/23/2023 [facility] DATE CREATED AUTHOR AUTHOR'S ORGANIZ ATION 09/02/2024 [facility] Care Teams (unrecognized sec tion and [...] MD Primary Care Provider Active Xochilt Beavers [facility] Emergency Provider Active Team Status: Active Member Role Status Dates Carl Child MD Primary Care Provider Active Roby Thakkar DO Emergency Provider Active Gem Velasco MD Admit Provider, Attending Provider Active Circuit Board Dra[employer] Relationship Specialty Start Date End Date Carl Child MD [address] [place] [address] PCP - General 07/19/15 Goals (unrecognized section [...] Hammer toe of right foot [M20.41] Procedures WI ARTHRD W/XTNSR HALLUCIS LONGUS TR 1ST METAR NCK WI CORRECTION HAMMERTOE FOOT ARTHRODESIS-right hallux interphalangeal joint fusion, barillas extensor tendon transposition, hudson bunionectomy TOE HAMMER REPAIR-proxivial interphalangeal joint fusion hammetoe correction digits two through four Erica Maldonado, RHINA [address] [place] [address] [place] [address] [facility] [address] [place] [address] Referral ID Status Reason Start Date Expiration Date Visits Re quested Visits Authorized [id number] 1 1 Scheduled Active and Recently Administ [...] at 0800, Pre-op (day of surgery) 0831 ([facility] ider: Aure Taylor RN) FOR RECORDS PERTAINING [...] BE BASED ON THE PRIMARY CLINICAL RECORDS. Left of the [employer] provides no warranty or guarantee of the accuracy or completeness of information in this document.
== END 2025-06-25 13:40 | disposition home or self-care (01) ==
LOC: CT 13:39
PROVIDERS: PCP Family Medicine; Visit Provider Family Medicine
DX: J32.9 Chronic sinusitis, unspecified (principal)
CPT/HCPCS: 70486